=== PATIENT | male | born 1965 | race Caucasian/White ===

== ENCOUNTER 2023-01-28 16:35 | Outpatient (OUT) | payer BC, SELFPAY ==
[2023-01-28 17:25] LABS: Basophils Absolute Auto 0.1 10^3/uL (0.0-0.1); Basophils Percent Auto 0.8 % (0.2-2.0); Eosinophils Absolute Auto 0.2 10^3/uL (0.0-0.7); Eosinophils Percent Auto 1.4 % (0.9-7.0); Hematocrit 41.2 % (42.0-54.0); Hemoglobin 13.8 g/dL (14.0-18.0); Immature Granulocytes Abs Auto 0.15 10^3/uL (0.00-0.03); Immature Granulocytes Pct Auto 1.3 % (0.0-0.5); Lymphocytes Absolute Auto 2.5 10^3/uL (1.2-3.8); Lymphocytes Percent Auto 22.3 % (20.5-60.0); Mean Corpuscular HGB Conc 33.5 g/dL (29.9-35.2); Mean Corpuscular Hemoglobin 33.1 pg (25.9-34.0); Mean Corpuscular Volume 98.8 fL (80.0-94.0); Mean Platelet Volume 8.8 fL (9.5-13.5); Monocytes Absolute Auto 0.9 10^3/uL (0.3-0.8); Monocytes Percent Auto 7.6 % (1.7-12.0); Neutrophils Absolute Auto 7.5 10^3/uL (1.4-6.5); Neutrophils Percent Auto 66.6 % (43.0-75.0); Platelet Count 319 10^3/uL (150-450); Red Blood Count 4.17 10^6/uL (4.70-6.10); White Blood Count 11.3 10^3/uL (4.0-11.0)
[2023-01-28 17:34] LABS: Alanine Aminotransferase 25 U/L (16-63); Albumin Level 3.4 g/dL (3.4-5.0); Alkaline Phosphatase 66 U/L (46-116); Anion Gap 10.1; Aspartate Amino Transferase 11 U/L (15-37); Bilirubin Total 0.2 mg/dL (0.2-1.0); Calcium 8.9 mg/dL (8.5-10.1); Carbon Dioxide 29.7 mmol/L (21.0-32.0); Chloride 102 mmol/L (98-107); Estimated GFR (African America >60 (>=60); Estimated GFR (Non-African Ame >60 (>=60); Globulin 3.4 g/dL; Glucose 102 mg/dL (74-106); Potassium 3.8 mmol/L (3.5-5.1); Sodium 138 mmol/L (136-145); Total Protein 6.8 g/dL (6.4-8.2)
== END 2023-01-28 16:36 ==
PROVIDERS: PCP Nurse Practitioner; Visit Provider Internal Medicine Rheumatology
DX: M15.0 Primary generalized (osteo)arthritis (principal); Z79.899 Other long term (current) drug therapy; M79.0 Rheumatism, unspecified
CPT/HCPCS: 36415; 80053; 85025

== ENCOUNTER 2023-02-02 09:39 | Outpatient (OUT) | payer BC, SELFPAY ==
--- NOTE | 2023-02-02 09:47 | MR_ITS ---
[address] [address] Patient Name: LADONNA TIM MRN: [id number] date: 1965 Sex: M Assigned Patient Location: MRI Current Patient Location: MRI Accession/Order Number: [id number] Exam Date: 02/02/2023 10:10 Report Date: 02/02/2023 12:08 At the request of: ANNA SOSA Procedure: MR lumbar spine wo con EXAMINATION: MR lumbar spine wo con HISTORY: DEGENERATIVE DISC DISEASE M51.36 ; acute exacerbation of chronic lumbar and right leg pain COMPARISON: MRI L-spine 10/01/2021 TECHNIQUE: A variety of imaging planes and parameters were utilized for visualization of suspected pathology. FINDINGS: For the purposes of numbering, sagittal T2 image # 11 extends from the T11 vertebral body superiorly to the S2-3 level inferiorly. PARASPINAL AREA: 4.2 cm left renal cyst. BONES: Reversal normal lordotic curvature of lumbar spine and moderate left convex curvature. Grade 1 retrolisthesis of L2 on 3 and L3 on 4. Incidental large hemangioma within T11. CORD/CAUDA EQUINA: Normal caliber, contour, and signal intensity. DISC LEVELS: 12-L1: No significant disc/facet abnormality, spinal stenosis, or foraminal stenosis. L1-L2: Moderate-marked central canal and moderate bilateral foramen narrowing. Prominent posterior disc bulging and marked disc height reduction. No significant facet arthropathy. Fat within the central canal exacerbates central canal narrowing. L2-L3: Moderate marked central canal and mild bilateral foramen narrowing. Prominent diffuse disc bulging and marked disc height reduction. Central canal narrowing is exacerbated by fat within the central canal. L3-L4: Moderate marked central canal narrowing and moderate bilateral foramen narrowing. 4 mm retrolisthesis of L3 on 4 moderate diffuse disc bulging and marked disc height reduction. Central Canal fat exacerbates narrowing. Mild degenerative facet arthropathy bilaterally. L4-L5: Mild central canal narrowing. Mild-moderate right foramen and marked left foramen narrowing. Mild diffuse disc bulging without significant disc height reduction. Residual 6 mm extruded fragment posterior to L5 superior endplate; significantly smaller than previously seen Moderate degenerative facet arthropathy and ligamentum flavum thickening. L5-S1: No significant central canal narrowing. Moderate marked right, moderate left foramen narrowing. Mild diffuse disc bulging and moderate disc height reduction. Moderate degenerative facet arthropathy bilaterally. IMPRESSION: 1. Multilevel marked degenerative changes with central canal and foramen narrowing; not significantly changed. 2. Decrease in size of the L4-5 right paracentral disc extrusion. Electronically authenticated by: LISSETTE MCCAIN Date: 02/02/2023 12:08
== END 2023-02-02 09:40 ==
LOC: MRI 09:42
PROVIDERS: PCP Nurse Practitioner; Visit Provider Nurse Practitioner
DX: M51.36 Other intervertebral disc degeneration, lumbar region (principal)
CPT/HCPCS: 72148

== ENCOUNTER 2023-02-16 12:55 | Outpatient (OUT) | payer BC, SELFPAY ==
--- NOTE | 2023-02-16 10:30 | US_ITS ---
The [address] [address] Patient Name: LADONNA TIM MRN: [id number] date: 1965 Sex: M Assigned Patient Location: US Current Patient Location: US Accession/Order Number: [id number] Exam Date: 02/16/2023 10:36 Report Date: 02/16/2023 15:08 At the request of: ANNA SOSA Procedure: US renal BI EXAM: US renal BI HISTORY: RENAL CYST seen in recent MRI spine study. Follow-up study. COMPARISON: None. TECHNIQUE: Multiple sonographic images of the kidneys and bladder were obtained, supplemented with Doppler. FINDINGS: The right kidney measures 10.4 x 5.6 x 6.2 cm. The cortex measures 17 mm in thickness. No cystic or solid mass is identified. The Doppler study and vasculature are intact. There is no evidence of hydronephrosis. The left kidney measures 11.5 x 6.3 x 7.2 cm. The cortex measures 19 mm in thickness. In the mid aspect there is a minimally complex cyst measuring 3.6 x 3.7 x 3.5 cm. The Doppler study demonstrates no flow within. No other cystic or solid mass is identified. The Doppler study and vasculature are intact. There is no evidence of hydronephrosis. The urinary bladder is moderately well distended. The bladder isaacs are smooth without evidence of thickening. Bilateral ureteral jets are present. There is no evidence of a focal mass or abnormal calcification. The prevoid volume is 309 mL. The patient voided spontaneously with a post void volume of 48 mL, which is mildly abnormal. IMPRESSION: A slightly complex cyst is seen in the left kidney. No other cystic or solid mass is seen in either kidney, and there is no evidence of hydronephrosis. The urinary bladder appears unremarkable except for mild post void residual volume, which is slightly more than expected. Electronically authenticated by: SREEDHAR REHMAN Date: 02/16/2023 15:08
== END 2023-02-16 12:56 | disposition home or self-care (01) ==
PROVIDERS: PCP Nurse Practitioner; Visit Provider Nurse Practitioner
DX: N28.1 Cyst of kidney, acquired (principal)
CPT/HCPCS: 76775

== ENCOUNTER 2023-03-02 08:21 | Outpatient (OUT) | payer BC, SELFPAY ==
--- NOTE | 2023-03-02 08:27 | MR_ITS ---
The [place] [id number] Patient Name: LADONNA TIM MRN: [id number] date: 1965 Sex: M Assigned Patient Location: MRI Current Patient Location: MRI Accession/Order Number: [id number] Exam Date: 03/02/2023 08:45 Report Date: 03/03/2023 11:17 At the request of: ANNA SOSA Procedure: MR hip RT wo con EXAMINATION: MR hip RT wo con HISTORY: Right Hip Pain M25.551 ; low back and right hip pain COMPARISON: No relevant comparison available. TECHNIQUE: A comprehensive examination was performed utilizing a variety of imaging planes and imaging parameters to optimize visualization of suspected pathology. Images were performed without contrast. FINDINGS: FEMORAL HEAD: Normal. No AVN, fracture, or significant arthropathy. ACETABULUM: Normal. No fracture or significant arthropathy. OTHER BONES: Normal appearance of the visualized portion of the pelvis. LABRUM: Normal appearance for a patient in this age group, with no visible tear. EFFUSIONS: None. No synovitis or loose bodies. BURSAE: Normal. No evidence of iliopsoas or trochanteric bursitis. TENDONS: Normal. Normal gluteus tendons, iliopsoas tendon, and hamstring origin. MUSCLES: Normal. No tear or strain. No inappropriate atrophy. OTHER: Negative. MR/MR hip RT wo con IMPRESSION: 1. No appreciable abnormality of the right hip joint. Electronically authenticated by: LISSETTE MCCAIN Date: 03/03/2023 11:17
== END 2023-03-02 08:22 | disposition home or self-care (01) ==
LOC: MRI 08:22
PROVIDERS: PCP Nurse Practitioner; Visit Provider Nurse Practitioner
DX: M25.551 Pain in right hip (principal); M54.50 Low back pain, unspecified
CPT/HCPCS: 73721

== ENCOUNTER 2023-03-10 11:15 | Outpatient (OUT) | payer BC, SELFPAY ==
[2023-03-10 12:16] LABS: Prostate Specific Antigen Dx 0.65 ng/mL (<=4.00)
== END 2023-03-10 11:16 | disposition home or self-care (01) ==
LOC: LAB 11:15
PROVIDERS: PCP Nurse Practitioner; Visit Provider Urology
DX: N28.1 Cyst of kidney, acquired (principal); N40.1 Benign prostatic hyperplasia with lower urinary tract symptoms; N52.9 Male erectile dysfunction, unspecified
CPT/HCPCS: 36415; 84153

== ENCOUNTER 2023-03-11 07:33 | Outpatient (OUT) | payer BC, SELFPAY ==
--- NOTE | 2023-03-11 07:51 | CT_ITS ---
The [address] [address] Patient Name: LADONNA TIM MRN: [id number] date: 1965 Sex: M Assigned Patient Location: CT Current Patient Location: CT Accession/Order Number: [id number] Exam Date: 03/11/2023 08:50 Report Date: 03/11/2023 10:41 At the request of: MARLYS HERRING Procedure: CT abdomen pelvis w con EXAM: CT abdomen pelvis w con HISTORY: Kidney Cyst COMPARISON: CT abdomen and pelvis 05/30/2021. TECHNIQUE: Axial soft tissue windows of the abdomen and pelvis with coronal and sagittal reformats following intravenous administration of [address] dose reduction technique was used including Automated Exposure Control. FINDINGS: Abdomen: The liver, gallbladder, spleen, pancreas, and adrenal glands are unremarkable. Minimal nonspecific bilateral perinephric fat stranding. No renal stones or collecting system dilatation. Redemonstrated within the lower pole of the left kidney is a 4.0 cm fluid density lesion consistent with a cyst. The bilateral ureters are nondilated. There are colonic diverticula. There are postsurgical changes involving the sigmoid. Otherwise, the bowel is unremarkable without evidence of wall thickening or obstruction. The appendix is nondilated. The aorta is normal caliber with mild atherosclerotic disease. No enlarged abdominal lymph nodes or free abdominal fluid. Redemonstrated is a moderate sized fat-containing ventral hernia to the left of midline along the anterior margin of the rectus abdominous muscle. Pelvis: Unremarkable bladder. The prostate is not significantly enlarged. No enlarged pelvic lymph nodes or free pelvic fluid. No aggressive sclerotic or lytic osseous lesions. Mild retrolisthesis of L2 and L3. There are regions of severe multilevel degenerative disc disease with mild levoconvex scoliosis of the lumbar spine. CT/CT abdomen pelvis w con IMPRESSION: 1. Diverticulosis. 2. Left renal cyst. 3. Fat-containing ventral hernia. Electronically authenticated by: JONEL NG Date: 03/11/2023 10:41
== END 2023-03-11 07:34 | disposition home or self-care (01) ==
LOC: CT 07:33
PROVIDERS: PCP Nurse Practitioner; Visit Provider Urology
DX: N28.1 Cyst of kidney, acquired (principal); N40.1 Benign prostatic hyperplasia with lower urinary tract symptoms; N52.9 Male erectile dysfunction, unspecified; K57.90 Diverticulosis of intestine, part unspecified, without perforation or abscess without bleeding; K43.9 Ventral hernia without obstruction or gangrene
CPT/HCPCS: 74177; Q9967

== ENCOUNTER 2023-04-01 09:49 | Outpatient (OUT) | payer BC, SELFPAY ==
[2023-04-02 05:11] LABS: Testosterone 299 ng/dL (264-916)
== END 2023-04-01 09:50 | disposition home or self-care (01) ==
PROVIDERS: PCP Nurse Practitioner; Visit Provider Urology
DX: N52.9 Male erectile dysfunction, unspecified (principal)
CPT/HCPCS: 36415; 84403

== ENCOUNTER 2023-04-07 13:46 | Outpatient (OUT) | payer BC, SELFPAY ==
--- NOTE | 2023-04-07 14:28 | CA_ITS ---
Patient: LADONNA TIM Exam Date: 04/07/2023 : 1965 Gender:M Ordering : ADITHYA SOSA [facility] Admission #: [id number] Family : Order #: [id number] CLICK HERE TO VIEW EXAM ECHOCARDIOGRAM REPORT PROCEDURE: CA ECHO DOPPLER COMPLETE INDICATIONS: Tortuous aorta, hypertension COMPARISON: None. DESCRIPTION: COMPLETE ECHOCARDIOGRAM Real-time transthoracic echocardiography with 2D, M-mode, spectral and color flow Doppler performed. QUALITY: Technically difficult due to patient's condition. 70 315# BSA 2.53 m2 LEFT VENTRICLE: Normal chamber size. Normal left ventricular wall thickness. Normal systolic function. LV EF: Normal left ventricular ejection fraction, (>55%). DIASTOLIC: Normal diastolic function. ATRIAL SEPTUM: LEFT ATRIUM: Normal chamber size. RIGHT ATRIUM: Mild dilatation. RIGHT VENTRICLE: Normal chamber size. Normal right ventricular systolic function. TRICUSPID VALVE: Normal mobility and thickness. No stenosis with no regurgitation. Unable to assess right-sided pressures due to lack of measurable tricuspid regurgitation. MITRAL VALVE: Normal mobility and thickness. No evidence of mitral valve stenosis. There is no mitral annular calcification. No mitral regurgitation. AORTIC VALVE: Normal trileaflet appearance. No visible sclerosis. Normal leaflet mobility. No evidence of aortic valve stenosis. No aortic regurgitation. AORTIC ROOT: Mildly dilated aortic root (4.1 cm) and ascending aorta (4.1 cm) when corrected to body surface area. PULMONIC VALVE: Not well visualized. No stenosis. No regurgitation. PERICARDIUM: No evidence of pericardial effusion. IVC: Not well visualized. PLEURA: CONCLUSION: 1. Normal left ventricular systolic function. LVEF is 60%. 2. Normal right ventricular size and systolic function. 3. No significant valvular dysfunction. 4. Unable to assess right-sided pressures due to lack of measurable tricuspid regurgitation. 5. Mildly dilated aortic root [4.1 cm], and ascending aorta [4.1 cm]. Adult Echocardiography Procedure Report Left Ventricle LVEDD (3.7 - 5.6 cm): 5.38 cm LVESD (2.2 - 4.0 cm): 3.42 cm LVIVS thickness (0.6 - 1.2 cm): 0.88 cm LVPW thickness (0.5 - 1.0 cm): 1.15 cm e': 0.09 m/s E - e': 7.96 LVOT Max Gradient: 1.88 mm[Hg] LVOT Area (cm2): 0.69 m/s Peak Velocity (LVOT): 0.69 m/s LVOT Diameter 2.56 cm Left Atrium LA Volume Index (2D A2C): 29.83 ml/m2 Left Atrium Systolic Dimension: 4.17 cm Mitral Valve MV E to A Ratio: 0.79 Mitral Valve A-Wave Peak Velocity: 0.95 m/s Mitral Valve E-Wave Peak Velocity: 0.76 m/s Right Ventricle Aorta AO Root Diam: 4.11 cm Aortic Valve AoV Area (Peak Km): 3.21 cm2, 3.21 cm2 Peak Velocity(Antegrade Flow): 1.10 m/s Peak Gradient(Antegrade Flow): 4.85 mm[Hg] Tricuspid Valve Pulmonic Valve Peak Velocity: 0.96 m/s Peak Gradient: 4.49 mm[Hg], 2.90 mm[Hg] Right Atrium Right Atrium Systolic Pressure: 67.04 ml, 67.04 ml Dictated by: Abner Siddiqi M.D. on 04/07/2023 at 20:06 Approved by: Abner Siddiqi M.D. on 04/07/2023 at 20:11
== END 2023-04-07 13:47 | disposition home or self-care (01) ==
LOC: CARD 13:47
PROVIDERS: PCP Nurse Practitioner; Visit Provider Nurse Practitioner
DX: I77.1 Stricture of artery (principal); I10 Essential (primary) hypertension; G47.33 Obstructive sleep apnea (adult) (pediatric)
CPT/HCPCS: 93306

== ENCOUNTER 2023-11-30 09:36 | Outpatient (OUT) | payer BC, SELFPAY ==
[2023-11-30 10:01] LABS: Basophils Absolute Auto 0.1 10^3/uL (0.0-0.1); Basophils Percent Auto 1.3 % (0.2-2.0); Eosinophils Absolute Auto 0.2 10^3/uL (0.0-0.7); Eosinophils Percent Auto 1.9 % (0.9-7.0); Hematocrit 43.7 % (42.0-54.0); Hemoglobin 14.3 g/dL (14.0-18.0); Immature Granulocytes Abs Auto 0.06 10^3/uL (0.00-0.03); Immature Granulocytes Pct Auto 0.7 % (0.0-0.5); Lymphocytes Percent Auto 22.8 % (20.5-60.0); Mean Corpuscular HGB Conc 32.7 g/dL (29.9-35.2); Mean Corpuscular Hemoglobin 32.7 pg (25.9-34.0); Mean Platelet Volume 9.2 fL (9.5-13.5); Monocytes Absolute Auto 0.6 10^3/uL (0.3-0.8); Monocytes Percent Auto 7.2 % (1.7-12.0); Neutrophils Absolute Auto 5.8 10^3/uL (1.4-6.5); Neutrophils Percent Auto 66.1 % (43.0-75.0); Platelet Count 331 10^3/uL (150-450); Red Blood Count 4.37 10^6/uL (4.70-6.10); Red Cell Distribution Width 11.9 % (11.0-15.0); White Blood Count 8.8 10^3/uL (4.0-11.0)
[2023-11-30 10:15] LABS: Bilirubin Urine NEGATIVE (NEGATIVE); Blood Urine NEGATIVE (NEGATIVE); Clarity Urine CLEAR (CLEAR); Color Urine YELLOW (YELLOW); Glucose Urine UA NEGATIVE (NEGATIVE); Ketones Urine NEGATIVE (NEGATIVE); Leukocyte Esterase Urine NEGATIVE (NEGATIVE); Nitrite Urine NEGATIVE (NEGATIVE); Protein Urine NEGATIVE (NEG/TRACE); Specific Gravity Urine >=1.030 (1.005-1.025); Urobilinogen Urine 0.2 EU/dL (0.2-1.0)
[2023-11-30 10:22] LABS: Urine Microscopic Indicated NO
[2023-11-30 10:30] LABS: Creatinine Urine Random 169.01 mg/dL (20.00-300.00); Microalbum Creatinine Ratio Ur 7.6 mg/g (0.0-29.9); Microalbumin Urine Random <1.3 mg/dL (<=30.0)
[2023-11-30 10:39] LABS: Estimated Average Glucose 111 mg/dL; Glycohemoglobin A1C 5.5 % (4.5-6.2)
[2023-11-30 12:04] LABS: Alanine Aminotransferase 29 U/L (16-63); Albumin Level 3.4 g/dL (3.4-5.0); Alkaline Phosphatase 58 U/L (46-116); Anion Gap 13.2; Aspartate Amino Transferase 22 U/L (15-37); BUN Creatinine Ratio 23.6; Bilirubin Total 0.4 mg/dL (0.2-1.0); Calcium 8.8 mg/dL (8.5-10.1); Carbon Dioxide 27.9 mmol/L (21.0-32.0); Chloride 107 mmol/L (98-107); Chol HDL Ratio 4.5; Cholesterol 191 mg/dL (<=200); Estimated GFR (African America >60 (>=60); Estimated GFR (Non-African Ame >60 (>=60); Globulin 3.3 g/dL; Glucose 102 mg/dL (74-106); HDL Cholesterol 42 mg/dL (40-60); LDL Cholesterol Calculated 136.6 mg/dL; Potassium 4.1 mmol/L (3.5-5.1); Sodium 144 mmol/L (136-145); Total Protein 6.7 g/dL (6.4-8.2); Triglycerides 62 mg/dL (<=150); VLDL CHOLESTEROL 12.4 mg/dL
[2023-11-30 12:12] LABS: Prostate Specific Antigen Dx 1.48 ng/mL (<=4.00)
== END 2023-11-30 09:37 | disposition home or self-care (01) ==
LOC: LAB 09:39
PROVIDERS: PCP Nurse Practitioner; Visit Provider Nurse Practitioner
DX: E29.1 Testicular hypofunction (principal); I10 Essential (primary) hypertension; R73.03 Prediabetes; E78.00 Pure hypercholesterolemia, unspecified; Z12.5 Encounter for screening for malignant neoplasm of prostate
CPT/HCPCS: 36415; 80053; 80061; 81003; 82043; 82570; 83036; 84153; 84403; 85025

== ENCOUNTER 2023-11-30 09:42 | Outpatient (OUT) | payer BC, SELFPAY ==
[2023-12-01 03:07] LABS: Testosterone 327 ng/dL (264-916)
== END 2023-11-30 09:43 | disposition home or self-care (01) ==
LOC: LAB 09:43
PROVIDERS: PCP Nurse Practitioner; Visit Provider Urology
DX: E29.1 Testicular hypofunction (principal)
CPT/HCPCS: 36415; 84403

== ENCOUNTER 2024-03-08 12:22 | Outpatient (OUT) | payer BC, SELFPAY ==
--- NOTE | 2024-03-08 12:31 | XR_ITS ---
The [address] [address] Patient Name: LADONNA TIM MRN: [id number] date: 1965 Sex: M Assigned Patient Location: LAB Current Patient Location: Accession/Order Number: [id number] Exam Date: 03/08/2024 12:32 Report Date: 03/09/2024 04:45 At the request of: ANNA SOSA Procedure: XR hand SILVANO 2V EXAMINATION: XR hand SILVANO 2V HISTORY: bilateral hand pain COMPARISON: No relevant comparison available. FINDINGS: RIGHT FINDINGS: BONES: 2 lytic lesions within head of second metacarpal, and one within head of the third metacarpal. No significant joint space narrowing. Tiny periarticular osteophytes along the proximal articular margins of the first, second, third proximal phalanges. SOFT TISSUES: No visible soft tissue swelling. OTHER: Negative. LEFT FINDINGS: BONES: Tiny periarticular osteophytes along the proximal margins of the third proximal phalanx. SOFT TISSUES: No visible soft tissue swelling. OTHER: Negative. XR/XR hand SILVANO 2V IMPRESSION: RIGHT CONCLUSION: 1. Small erosive changes within head of second and third metacarpal which may be secondary to rheumatoid arthritis. Small periarticular osteophytes of the first, second, third metacarpal phalangeal joints are more typical of osteoarthritis. LEFT CONCLUSION: 1. Minimal arthritic changes favoring osteoarthritis. Electronically authenticated by: LISSETTE MCCAIN Date: 03/09/2024 04:45
[2024-03-08 13:00] LABS: Erythrocyte Sedimentation Rate 10 mm/hr (<=20)
[2024-03-08 13:31] LABS: Uric Acid 6.7 mg/dL (3.5-7.2)
== END 2024-03-08 12:23 | disposition home or self-care (01) ==
LOC: LAB 12:26
PROVIDERS: PCP Nurse Practitioner; Visit Provider Nurse Practitioner
DX: M79.641 Pain in right hand (principal); M79.642 Pain in left hand
CPT/HCPCS: 36415; 73120; 84550; 85652

== ENCOUNTER 2024-03-13 13:33 | Outpatient (OUT) | payer BC, SELFPAY ==
[2024-03-14 04:07] LABS: Antistreptolysin O Ab 54.3 IU/mL (0.0-200.0); Rheumatoid Factor (RF) <10.0 IU/mL (<14.0)
[2024-03-15 12:11] LABS: Antinuclear Antibodies, IFA Negative (.)
== END 2024-03-13 13:34 | disposition home or self-care (01) ==
LOC: LAB 13:36
PROVIDERS: PCP Nurse Practitioner; Visit Provider Nurse Practitioner
DX: M79.641 Pain in right hand (principal); M79.642 Pain in left hand
CPT/HCPCS: 36415; 86038; 86060; 86431

== ENCOUNTER 2024-03-20 13:27 | Outpatient (OUT) | payer BC, SELFPAY ==
--- NOTE | 2024-03-20 13:35 | XR_ITS ---
The [address] [address] Patient Name: LADONNA TIM MRN: [id number] date: 1965 Sex: M Assigned Patient Location: [facility] Current Patient Location: Accession/Order Number: [id number] Exam Date: 03/20/2024 13:38 Report Date: 03/22/2024 04:57 At the request of: NANA SOSA Procedure: XR cervical spine 2-3V EXAMINATION: XR cervical spine 2-3V HISTORY: Bilateral Hand Pain, Cervical Neck Radiculopathy COMPARISON: No relevant comparison available. FINDINGS: BONES: Straightening of normal lordotic curvature. C3-C4 moderate degenerative facet arthropathy on right. Multilevel mild degenerative facet arthropathy. DISC SPACES: Moderate narrowing and small posterior endplate osteophytes at C4-C5, C5-C6, C6-C7. PARASPINOUS: Negative. No paraspinous abnormality is seen. OTHER: Negative. XR/XR cervical spine 2-3V IMPRESSION: 1. Multilevel moderate or greater degenerative changes. 2. No appreciable acute abnormality. Electronically authenticated by: LISSETTE MCCAIN Date: 03/22/2024 04:57
== END 2024-03-20 13:28 | disposition home or self-care (01) ==
LOC: RAD 13:28
PROVIDERS: PCP Nurse Practitioner; Visit Provider Nurse Practitioner
DX: M79.641 Pain in right hand (principal); M79.642 Pain in left hand; M50.30 Other cervical disc degeneration, unspecified cervical region
CPT/HCPCS: 72040

== ENCOUNTER 2024-04-12 09:54 | Outpatient (OUT) | payer BC, SELFPAY ==
--- OUTSIDE RECORDS SUMMARY | 2024-04-12 10:14 | XMS_ITS | CCD ---
Author Organization [facility] Care Team Providers Care Boiler Tester Name Role Phone Es Love Primary Care Provider JOSHUA PEREZ Attending Unavailable ES LOVE Primary Care Unavailable Rom Faye Jr. Primary Care Provider Carrie Campos Unavailable AICHHOLZ, PRODUCTION FLOATER SHAVONNE Consulting Unavailable AICHHOLZ, PRODUCTION FLOATER SHAVONNE Primary Care Unavailable AICHHOLZ, PRODUCTION FLOATER SHAVONNE Admitting Unavailable AICHHOLZ, PRODUCTION FLOATER SHAVONNE Attending Unavailable AICHHOLZ, PRODUCTION FLOATER SHAVONNE Primary Care Unavailable MISC, DR MARIE Consulting Unavailable MISC, DR MARIE Admitting Unavailable MISC, DR MARIE Attending Unavailable AICHHOLZ, PRODUCTION FLOATER SHAVONNE Referring Unavailable AICHHOLZ, PRODUCTION FLOATER SHAVONNE Primary Care Unavailable MISC, DR MARIE Consulting Unavailable MISC, DR MARIE Admitting Unavailable MISC, DR MARIE Attending Unavailable AICHHOLZ, PRODUCTION FLOATER SHAVONNE Attending Unavailable AICHHOLZ, PRODUCTION FLOATER SHAVONNE Consulting Unavailable AICHHOLZ, PRODUCTION FLOATER SHAVONNE Primary Care Unavailable AICHHOLZ, PRODUCTION FLOATER SHAVONNE Admitting Unavailable DR LISSETTE MCCAIN Consulting Unavailable MISC, DR MARIE Attending Unavailable MISC, DR MARIE Consulting Unavailable MISC, DR MARIE Admitting Unavailable AICHHOLZ, PRODUCTION FLOATER SHAVONNE Primary Care Unavailable DANIELE MOLINA Consulting UnavailROMA Modi Admitting Unavailable ROMA CHAHAL Attending Unavailable AICHHOLZ, PRODUCTION FLOATER SHAVONNE Primary Care Unavailable AICHHOLZ, PRODUCTION FLOATER SHAVONNE Primary Care Unavailable DR LISSETTE MCCAIN Consulting Unavailable FAWWAD, FLORES H Admitting Unavailable FAWWAD, FLORES H Attending Unavailable FAWWAD, FLORES H Consulting Unavailable DR DARIN CHAPA V Consulting Unavailable AICHHOLZ, PRODUCTION FLOATER SHAVONNE Primary Care Unavailable AICHHOLZ, PRODUCTION FLOATER SHAVONNE Admitting Unavailable AICHHOLZ, PRODUCTION FLOATER SHAVONNE Attending Unavailable AICHHOLZ, PRODUCTION FLOATER SHAVONNE Consulting Unavailable AICHNICHOLAS PENGA J Primary Care Physician Rom Faye Jr. Primary Care Provider Rafael Esteban MD Unavailable Ickes PA-C, Barbie Bello Attending Unav ailable Aichholz CONCRETE CRAFTSMAN-PRODUCTION FLOATER, Shavonne Quesada Primary Care Unava ilable Aichholz CONCRETE CRAFTSMAN-PRODUCTION FLOATER, Shavonne Quesada Referring Unava ilable Aichholz CONCRETE CRAFTSMAN-PRODUCTION FLOATER, Shavonne Quesada Primary Care Unava ilable Ickes PA-C, Barbie Bello Attending Unav ailable Aichholz CONCRETE CRAFTSMAN-PRODUCTION FLOATER, Shavonne Quesada Primary Care Unava ilable Ickes PA-C, Barbie Bello Attending Unav ailable Aichholz CONCRETE CRAFTSMAN-PRODUCTION FLOATER, Shavonne Quesada Primary Care Unava ilable Aichholz CONCRETE CRAFTSMAN-PRODUCTION FLOATER, Shavonne Quesada Referring Unava ilable Claritza CONCRETE CRAFTSMAN-PRODUCTION FLOATER, Manuel Mcintosh Attending Unav ailable Aichholz CONCRETE CRAFTSMAN-PRODUCTION FLOATER, Shavonne Quesada Primary Care Unava ilable Claritza CONCRETE CRAFTSMAN-PRODUCTION FLOATER, Manuel Mcintosh Attending Unav ailable Parth Hdz MD Primary Care Provider [phone] Javier DOWNS Attending Unavailable Javier DOWNS Attending Unavailable Javier DOWNS Attending Unavailable AICHHOLSHAVONNE Isabel Referring Unavailable Javier DOWNS Attending Unavailable Javier DOWNS Attending Unavailable Wendi Watts Attending Unavailable AICHHOLZ, SHAVONNE Attending Unavailable SHAIKH LIANG Attending Unavailable AICHHOLZ, SHAVONNE Attending Unavailable Allergies Allergy Classification Reported Allergen(s) Allergy Type Date of Onset Reaction(s) Facility Opioid Agonists (2 sources) Meperidine Drug Allergy 06-10-20 14 Mental Status Change [facility] Penicillins (antibiotic) (1 source) Penicillins Drug Allergy 03-03-20 05 [facility] Work Phone: (7 sources) Meperidine; Translations: [meperidine] Drug Allergy 02-14-20 20 Hallucinations (finding) [place], [place] (13 sources) Morphine; Translations: [morphine] Drug Allergy 06-10-20 14 Hallucinations (finding), Mental Status Change [place], [place] (2 sources) Penicillins; Translations: [penicillins] Propensity to adverse reactions to drug 02-14-20 20 [place], [place] (7 sources) Penicillin; Translations: [penicillin] Drug Allergy Nausea and vomiting (disorder) [facility] (4 sources) Penicillin G Drug Allergy 08-24-19 24 GI intolerance [facility] Other (3 sources) Meperidine; Translations: [Demerol] Drug Allergy 05-17-20 15 [facility] (1 source) Morphine Drug Allergy 11-20-19 13 [facility] (1 source) Penicillins Drug allergy (disorder) 11-20-19 13 [facility] (1 source) Meperidine Drug Allergy 06-10-20 14 Mental Status Change [facility] (1 source) Penicillins Propensity to adverse reactions 03-03-20 05 [facility] Work Phone: (1 source) Morphine; Translations: [Morphine Sulfate] Drug Allergy [facility] Rep[facility] (1 source) opioid-like analgesics; Translations: [opioid-like analgesics] Propensity to adverse reactions to drug (disorder) [facility] (3 sources) Meperidine Drug Allergy 08-24-19 24 [facility] Medications Current Medications Medication Drug Class(es) Dates Sig (Normalized) Sig (Original) acetaminophen 325 mg / HYDROcodone bitartrate 5 mg oral tablet (5 sources) Opioid Agonist Start: 01-24-2023 End: 09-29-2023 take 1 tablet by mouth once HYDROcodone-acetami nophen ([place]) 5-325 MG tablet Take 1 tablet by mouth every 12 (twelve) hours if needed for moderate pain 0 01/24/2023 09/29/2023 Discontinued (Therapy completed) take 1 tablet by ashok th every six hours as needed HYDROcodone-Acetaminophen (NORCO) 10-325 mg per tablet Take 1 tablet by mouth every 6 hours as needed. 0 Active Comment on above: Take 1 tablet by ashok th every 6 hours as needed. amitriptyline hydrochloride 50 mg oral tablet (10 sources) Tricyclic Antidepressant Start: 03-07-2023 amitriptyline 50 mg Tab Refills(s) 0 Start Date: 03/07/23 Status: Ordered Amitriptyline HC l Active take 1 tablet by mouth once nafisa y amitriptyline (ELAVIL) 25 MG tablet Take 25 mg by mouth nightly 0 Active busPIRone hydrochloride 10 m g oral tablet (6 sources) Start: 12-05-2023 busPIRone 10 m g Tab Refills(s) 0 Start Date: 12/05/23 Status: Ordered Start: 08-18-2023 take 1 tablet by ashok th in the morning busPIRone (Buspar) 10 MG tablet Indications: SCOT (generalized anxiety disorder) (CMS/HCC) Take 1 tablet (10 mg) by mouth in the morning and 1 tablet (10 mg) before bedtime. 60 tablet 2 08/18/2023 Active cyclobenzaprine hydrochloride 10 mg oral tablet (10 sources) Muscle Relaxant Start: 03-07-2023 take 1 tablet by mouth three times daily as needed for muscle spasms cyclobenzaprine 10 mg Tab 10 mg = 1 tab(s), Oral, TID, PRN for spasm, # 30 tab(s), Refills(s) 0 Start Date: 03/07/23 Status: Ordered take 1 tablet by ashok th twice daily as needed for muscle spasms cyclobenzaprine (Flexeril) 10 MG tablet Take 1 tablet by mouth 2 (two) times a day as needed for muscle spasms 0 Active Cyclobenzaprine HCl at bedtime Active fluticasone propionate 0.05 mg/actuat metered dose nasal spray (9 sources) Corticosteroid Start: 09-28-2023 End: 10-28-2023 take 2 spray(s) nasal route in the morning fluticasone (Flonase) 50 MCG/ACT nasal spray Indications: Non-seasonal allergic rhinitis, unspecified trigger Administer 2 sprays into each nostril in the morning. 16 g 5 09/28/2023 10/28/2023 Active Start: 03-07-2023 fluticasone Na fortino 0.05 mg/inh [place] Refill(s) 0 Start Date: 03/07/23 Status: Ordered Fluticasone Prop ionate 50 MCG/ACT Nasal for 30 Days Active hydroCHLOROthiazide (2 sources) Thiazide Diuretic hydroCHLOROthi azide Active take 1 tablet by mouth once nafisa y hydroCHLOROthiazide (HYDRODIURIL) 25 MG tablet Take 25 mg by mouth daily 0 Active hydroCHLOROthiazide 12.5 mg / lisinopril 10 mg oral tablet (8 sources) Thiazide Diuretic, Angiotensin Converting Enzyme Inhibitor Start: 03-07-2023 hydrochlorothiazide-lisinopr il 12.5 mg-10 mg Tab Refill(s) 0 Start Date: 03/07/23 Status: Ordered lisinopril 10 mg oral tablet (1 source) Angiotensin Converting Enzyme Inhibitor take 1 tablet by mouth every twenty-f our hours Lisinopril 10 MG 1 tablet Orally Once a day Active 24 hr mirabegron 50 mg extended release oral tablet (3 sources) beta3-Adrener gic Agonist Start: 12-05-2023 take 1 tablet by mouth once daily Myrbetriq 50 mg oral tablet, extended release 50 mg = 1 tab(s), Oral, Daily, # 30 tab(s), Refills(s) 11, Pharmacy: [id number], 178, cm, 12/05/23 13:51:00 EDT, Height/Length Dosing, 143, kg, 12/05/23 13:51:00 EDT, Weight Dosing Start Date: 12/05/23 Status: Ordered montelukast 10 mg oral tablet (10 sources) Leukotriene Receptor Antagonist Start: 03-07-2023 montelukast 10 mg Tab Refills(s) 0 Start Date: 03/07/23 Status: Ordered Montelukast Sodi um Active nabumetone 750 mg oral tablet (9 sources) Nonsteroidal Anti-inflammatory Drug Start: 03-07-2023 nabumetone 750 mg Tab Refills(s) 0 Start Date: 03/07/23 Status: Ordered Nabumetone 750 M G Oral for 30 Days Active OTC Prostate Supplement (3 sources) Start: 12-05-2023 OTC Prostate Supplement OTC Prostate Supplement Start Date: 12/05/23 Status: Ordered predniSONE 20 mg oral tablet (1 source) Start: 01-03-2023 take 1 tablet by mouth every twelve hours predniSONE 20 MG 1 tablet Orally bid for 5 day(s) December, Active pregabalin 50 mg oral capsule (8 sources) Start: 08-02-2023 take 1 capsule by mouth in the morning pregabalin (Lyrica) 50 MG capsule Take 1 capsule by mouth in the morning and 1 capsule before bedtime. 0 08/02/2023 Active Start: 03-07-2023 pregabalin 25 mg Cap 50 mg = 2 cap(s), Refills(s) 0 Start Date: 03/07/23 Status: Ordered Start: 03-07-2023 pregabalin 25 mg Cap Refills(s) 0 Start Date: 03/07/23 Status: Ordered sildenafil 50 mg oral tablet (5 sources) Phosphodiesterase 5 Inhibitor Start: 10-31-2022 End: 09-29-2023 sildenafil (Viagra) 50 MG tablet Take 1 tablet by mouth if needed for erectile dysfunction (Prior to intercourse) 0 10/31/2022 09/29/2023 Discontinued (Therapy completed) tamsulosin hydrochloride 0.4 mg oral capsule (7 sources) alpha-Adrenergic Jameel Start: 08-03-2023 take 1 capsule by mouth every twenty-four hours in the morning tamsulosin (Flomax) 0.4 MG 24 hr capsule Take 1 capsule by mouth in the morning. 0 08/03/2023 Active Start: 03-28-2023 End: 03-22-2024 take 1 capsule by mouth once daily tamsulosin 0.4 mg Cap 0.4 mg = 1 cap(s), Oral, Daily, X 30 day(s), # 30 cap(s), Refills(s) 11, Pharmacy: [id number], 178, cm, 03/28/23 11:45:00 EDT, Height/Length Dosing, 143, kg, 03/28/23 11:45:00 EDT, Weight Dosing Start Date: 03/28/23 Stop Date: 03/22/24 Status: Ordered Completed/Discontinued Medications Medication Drug Class(es) Dates Sig (Normalized) Sig (Original) Albuterol (1 source) beta2-Adrenergic Agonist ProAir HFA Not-Taking CPAP (2 sources) CPAP USE WHEN SLEEPING FOR SLEEP APNEA 0 Active Comment on above: USE WHEN SLEEPING FO R SLEEP APNEA diazePAM 5 mg oral tablet (2 sources) Benzodiazepine diazepam (VALIUM) 5 mg tablet Take 5 mg by mouth as needed. 0 Active Comment on above: Take 5 mg by mouth a s needed. ibuprofen 800 mg oral tablet (2 sources) Nonsteroidal Anti-inflammatory Drug Ibuprofen 800 MG Orally Not-Taking methylPREDNISolone (1 source) Corticosteroid Start: 06-03-2014 Depo-Medrol 80 mg May, 80 mg tadalafil 10 mg oral tablet (1 source) Phosphodiesterase 5 Inhibitor Start: 02-21-2024 take 1 tablet by mouth every hour as needed, then take 2 tablets by mouth every twenty-four hours as needed tadalafil 10 mg Tab 10 mg = 1 tab(s), Oral, As Directed, PRN for erectile dysfunction, take 1 tab by mouth at least 1 hr prior to sexual activity, DO NOT exceed 20 mg in 24 hr period, # 30 tab(s), Refills(s) 3, Pharmacy: [id number], 178, cm, 02/21/24 9:33:00 EDT, Height/Length Dosing, 136.4, kg, 02/21/24 9:33:00 EDT, Weight Dosing Start Date: 02/21/24 Status: Ordered Toradol 30 mg/ml (1 source) Start: 01-03-2023 Toradol 30 mg/ml December, 30 mg triamcinolone acetonide 40 mg/ml injectable suspension (1 source) Corticosteroid Start: 01-03-2023 Kenalog-40 December, 40 mg Wrist Splint - (1 source) Start: 05-14-2020 Wrist Splint - as directed Apr, Not-Taking Problems Active Problems Problem Classification Problem Date Documented Da te Episodic/Chronic Abdominal hernia (3 sources) Hernia of anterior abdominal wall; Translations: [Ventral hernia without obstruction or gangrene] Onset: 09-28-2023 09-28-2023 Episodic Anxiety disorders (5 sources) Generalized anxiety disorder; Translations: [Generalized anxiety disorder] Onset: 08-18-2023 08-18-2023 Chronic Aortic; peripheral; and visceral artery aneurysms (8 sources) Aortic aneurysm; Translations: [Aortic aneurysm of unspecified site, without rupture] Onset: 09-28-2023 09-28-2023 Chronic Asthma (5 sources) Exacerbation of mild persistent asthma; Translations: [Mild persistent asthma with (acute) exacerbation] Onset: 09-28-2023 09-28-2023 Chronic Chronic obstructive pulmonary disease and bronchiectasis (2 sources) Acute exacerbation of chronic obstructive airways disease; Translations: [Chronic obstructive pulmonary disease with (acute) exacerbation] Chronic Diabetes mellitus without complication (5 sources) Prediabetes; Translations: [Prediabetes] Onset: 09-29-2023 09-29-2023 Episodic Disorders of lipid metabolism (5 sources) Hypercholesterolemi a; Translations: [Pure hypercholesterolemi a, unspecified] Onset: 09-28-2023 09-28-2023 Chronic Diverticulosis and diverticulitis (3 sources) Diverticulitis; Translations: [Diverticulitis of intestine, part unspecified, without perforation or abscess without bleeding] Onset: 09-29-2023 09-29-2023 Chronic Essential hypertension (14 sources) Essential (primary) hypertension; Translations: [Hypertensive disorder] Onset: 06-29-2022 Chronic Genitourinary symptoms and ill-defined conditions (6 sources) Urgent desire to urinate; Translations: [Urgency of urination] Onset: 12-05-2023 Episodic Hyperplasia of prostate (12 sources) Benign prostatic hypertrophy with outflow obstruction; Translations: [Benign prostatic hyperplasia with lower urinary tract symptoms] Onset: 03-07-2023 Chronic Infective arthritis and osteomyelitis (except that caused by tuberculosis or sexually transmitted disease) (2 sources) Periostitis of ankle AND/OR foot; Translations: [Osteomyelitis, unspecified] Onset: 06-10-2014 06-10-2014 Chronic Osteoarthritis (15 sources) Arthritis of right knee; Translations: [Unilateral primary osteoarthritis, right knee] Onset: 07-15-2014 07-15-2014 Chronic Other circulatory disease (3 sources) Disorder of aorta; Translations: [Stricture of artery] Onset: 09-28-2023 09-28-2023 Chronic Other connective tissue disease (3 sources) Full thickness rotator cuff tear; Translations: [Complete rotator cuff tear or rupture of unspecified shoulder, not specified as traumatic] Onset: 09-28-2023 09-28-2023 Episodic Other diseases of kidney and ureters (4 sources) Acquired renal cyst without neoplastic change; Translations: [Cyst of kidney, acquired] Onset: 03-07-2023 Episodic Other diseases of kidney and ureters (5 sources) Complex renal cyst 03-07-2023 Episodic Other diseases of kidney and ureters (6 sources) Cyst of kidney; Translations: [Cyst of kidney, acquired] Onset: 09-28-2023 09-28-2023 Episodic Other endocrine disorders (2 sources) Testicular hypofunction; Translations: [Testicular hypofunction] Onset: 03-28-2023 Chronic Other endocrine disorders (2 sources) Male hypogonadism 03-28-2023 Chronic Other lower respiratory disease (1 source) Dyspnea; Translations: [Dyspnea and respiratory abnormalities] Episodic Other lower respiratory disease (4 sources) Nodule of lung; Translations: [Solitary pulmonary nodule] Onset: 09-29-2023 09-29-2023 Episodic Other male genital disorders (14 sources) Male erectile dysfunction, unspecified; Translations: [Erectile dysfunction] Onset: 03-07-2023 Chronic Other male genital disorders (3 sources) Secondary erectile dysfunction; Translations: [Male erectile dysfunction, unspecified] Onset: 09-29-2023 09-29-2023 Chronic Other nervous system disorders (2 sources) Neuroma of foot; Translations: [Lesion of plantar nerve, right lower limb] Onset: 06-12-2014 06-12-2014 Chronic Other nervous system disorders (1 source) Chronic pain; Translations: [Other chronic pain] Chronic Other non-traumatic joint disorders (4 sources) Pain in right hip; Translations: [PAIN IN RIGHT HIP] Onset: 01-13-2023 Episodic Other nutritional; endocrine; and metabolic disorders (1 source) Morbid (severe) obesity due to excess calories; Translations: [MORBID SEVERE OBES D/T EXCESS PEDRO LUIS] Onset: 07-04-2022 Chronic Other nutritional; endocrine; and metabolic disorders (1 source) Body mass index (BMI) 40.0-44.9, adult; Translations: [BODY MASS INDEX BMI 40.0-44.9 ADULT] Onset: 07-04-2022 Chronic Other nutritional; endocrine; and metabolic disorders (5 sources) Body mass index 40+ - severely obese; Translations: [Morbid (severe) obesity due to excess calories] Onset: 09-28-2023 09-28-2023 Chronic Other nutritional; endocrine; and metabolic disorders (2 sources) Obesity caused by energy imbalance; Translations: [Morbid (severe) obesity due to excess calories] 09-29-2023 Chronic Other screening for suspected conditions (not mental disorders or infectious disease) (7 sources) Encounter for screening for malignant neoplasm of prostate; Translations: [Patient encounter status] Onset: 07-04-2022 09-29-2023 Episodic Other upper respiratory disease (3 sources) Allergic rhinitis; Translations: [Other allergic rhinitis] Onset: 09-28-2023 09-28-2023 Chronic Residual codes; unclassified (5 sources) Obstructive sleep apnea syndrome; Translations: [Obstructive sleep apnea (adult) (pediatric)] Onset: 09-28-2023 09-28-2023 Chronic Residual codes; unclassified (5 sources) Chronic back pain 03-07-2023 Episodic Residual codes; unclassified (5 sources) Sleep disorder 03-07-2023 Episodic Residual codes; unclassified (3 sources) Insomnia; Translations: [Insomnia, unspecified] Onset: 09-29-2023 09-29-2023 Episodic Spondylosis; intervertebral disc disorders; other back problems (3 sources) Lumbosacral spondylosis without myelopathy; Translations: [Spondylosis without myelopathy or radiculopathy, lumbosacral region] Onset: 05-01-2018 09-28-2023 Chronic Spondylosis; intervertebral disc disorders; other back problems (16 sources) Neurogenic claudication; Translations: [Spinal stenosis, lumbar region with neurogenic claudication] Onset: 06-12-2014 06-12-2014 Episodic Sprains and strains (1 source) Strain of muscle, fascia and tendon of lower back, initial encounter Episodic Unclassified (1 source) Patient encounter status 02-21-2024 Past or Other Problems Problem Classification Problem Date Documented Da te Episodic/Chronic Joint disorders and dislocations; trauma-related (2 sources) Tear of medial meniscus of knee; Translations: [Other tear of medial meniscus, current injury, unspecified knee, initial encounter] Onset: 07-15-2014 07-15-2014 Episodic Other aftercare (1 source) Other terminal block assembler (current) drug therapy; Translations: [[facility] CURRENT DRUG THERAPY] Onset: 09-08-2022 Episodic Other connective tissue disease (2 sources) Plantar fasciitis; Translations: [Plantar fascial fibromatosis] Onset: 06-10-2014 06-10-2014 Episodic Other connective tissue disease (2 sources) Calcaneal spur; Translations: [Calcaneal spur, unspecified foot] Onset: 06-10-2014 06-10-2014 Episodic Other connective tissue disease (1 source) Rheumatism, unspecified; Translations: [RHEUMATISM UNSPECIFIED] Onset: 09-08-2022 Episodic Other connective tissue disease (4 sources) Myalgia, unspecified site; Translations: [MYALGIA UNSPECIFIED SITE] Onset: 03-03-2022 Episodic Other injuries and conditions due to external causes (2 sources) Common peroneal neuropathy; Translations: [Injury of peroneal nerve at lower leg level, unspecified leg, initial encounter] Onset: 06-10-2014 06-10-2014 Episodic Other non-traumatic joint disorders (4 sources) Pain in right shoulder; Translations: [PAIN IN RIGHT SHOULDER] Onset: 07-28-2022 Episodic Other non-traumatic joint disorders (4 sources) Pain in left ankle and joints of left foot; Translations: [PAIN IN LEFT ANKLE] Onset: 07-05-2022 Episodic Results Test Name Value Interpretation Reference Range Facility Urology Office/Clinic Noteon 02-21-2024 Urology Office/Clinic Note Urology Office/Clinic Note Chief Complaint Discuss TRT HPI Staff PRW pt Here today to discuss possible TRT. (Has decided to not go through w/P4 inj) Additional DX: BPH, Urgency & Renal Cyst *Started on Myrbetriq 50mg at time of last encounter. & Tamsulosin 0.4mg qd therapy. Myrbetriq has helped, however would like something else due to cost. Stopped taking Tamsulosin-didn't see any sx relief. Main bladder concern is urgency. Would like to discuss moving forward w/testosterone injections (states oral replacement was not previously discussed) Has noticed fatigue to go along with ED. PVR 142ml History of Present Illness I have reviewed and verified the staff HPI to be accurate for this encounter. Portions of this record may have been created with voice recognition artificial intelligence software, specifically UUSEE, [employer] and or [employer]. Substitutions may have occurred due to the inherent limitations of voice recognition and artificial intelligence software. Review of Systems PHQ Score Initial Depression Screen Score: 0 SCORE Physical Exam Vitals & Measurements HR: 101(Peripheral) RR: 16 BP: 136/81 HT: 70 in HT: 178 cm WT: 136.4 kg WT: 300.08 lb BMI: 43.05 General: Well developed, well nourished, in no acute distress. Genitourinary: Flank Pain: none. Bladder: nonpalpable. Assessment/Plan 1. BPH associated with nocturia (N40.1: Benign prostatic hyperplasia with lower urinary tract symptoms) IPSS 18, moderate symptoms of BPH. Mixed feelings about his urinary symptoms at this time. Complains of frequency, urgency being his most bothersome symptoms, but he does also complain of weak stream, mild straining and intermittency. Patient was previously on tamsulosin 0.4 mg daily. However, he notes that this did not really improve his stream or his urgency. We discussed male urologic anatomy including the prostate and how this is likely contributing to his urinary symptoms. We discussed how potential prostate obstruction affects long-term bladder health and compliance. We discussed alpha-jameel medications to help with urinary symptoms, possible side effects, as well as bladder medication to help with frequency/urgency. I did advise patient that these medications do not protect the bladder while alleviating some urinary symptoms and that we may be covering up prostate being primary issue. In order to assess degree of bladder outlet obstruction and bladder health, discussed further evaluation with cystoscopy. The risks and benefits for cystoscopy have been discussed. The risks include bleeding, infection, and irritation of the bladder and urinary channel, among others. The patient, after being informed of procedural details and after questions have been answered, wishes to proceed. Will order Local anesthesia. -Schedule cystoscopy Ordered: 53875 Measure Post Void residual urine and/or bladder capacity by US- non-imaging Body Mass Index (BMI) documented 3008F Current tobacco non-user 1036F Depression Screening Negative 3352F Discharge medications reconciled with current medications in outpatient record 1111F Medication list documented in medical record 1159F Most recent diastolic blood pressure 80-89 mm Hg 3079F Patient screen for fall risk: no falls in last year or 1 fall with no injury in last year 1101F Review of all meds by a prescribing practitioner or clinical pharmacist documented in EHR 1160F Systolic BP 130-139 mm Hg (Most Recent) 3075F Urnls Dip Stick Auto w/o Microscopy POC [id number] 2. Urgency of urination (R39.15: Urgency of urination) This is the patient's most bothersome urinary symptom at this time. At prior office visit, he had recently started prostate supplement with saw palmetto which did not seem to improve his urgency some. Patient opted to start medication at prior office visit. He was started on Myrbetriq ER 50 mg daily, tolerating this well without side effects and is really helping with his urgency. He is paying about $65 a month for this, but he fears that his insurance will not continue to pay for this given that the initial cost is so much. He is inquiring about starting another medication in its place. PVR 142 cc Discussed with patient that I am hesitant to continue adding on bladder medications, as he does continue to complain of stream symptoms as well. I did discuss further evaluation of the urinary channel and bladder with cystoscopy, see #1. After assessment of urinary channel/bladder with cystoscopy, may consider switching bladder medications, although patient seems to be doing well on Myrbetriq. -Continue Myrbetriq -Schedule cystoscopy 3. Erectile dysfunction (N52.9: Male erectile dysfunction, unspecified) JEFFREY 15 -mild to moderate symptoms of erectile dysfunction Patient reports that he has issues getting and maintaining erections. Was previously on sildenafil 50 mg as needed by his PCP. He does report that this helped a lit (more content not included)... Normal [facility] Comment on above: Result Comment: Elec tronically Signed By: RENETTA Watts APRN, Wendi Acuna\.br\Date and Time Signed: 02/21/24 12:26 EDT Retail - Clinical Noteon Retail - Clinical Note [id number] [facility] Ambulatory Visit Summaryon 0 12-05-2023 Ambulatory Visit Summary MARCEL WAHL :1965 Visit Date:12/05/2023 Ambulatory Visit Instructions Your Diagnosis BPH associated with nocturia Urgency of urination Erectile dysfunction Renal cyst Your Care Team Attending Physician - NEVAEH HARKINS, Javier Jones Primary Care Physician - SHAVONNE CHOWDARY CNP This Is Your Medications List mirabegron (Myrbetriq 50 mg oral tablet, extended release) tamsulosin (tamsulosin 0.4 mg Cap) Contact prescribing physician if questions or concerns Non-Formulary Medication (OTC Prostate Supplement) amitriptyline (amitriptyline 50 mg Tab) busPIRone (busPIRone 10 mg Tab) cyclobenzaprine (cyclobenzaprine 10 mg Tab) fluticasone nasal (fluticasone Nasal 0.05 mg/inh [place]) hydrochlorothiazide-li sinopril (hydrochlorothiazide-l isinopril 12.5 mg-10 mg Tab) montelukast (montelukast 10 mg Tab) nabumetone (nabumetone 750 mg Tab) pregabalin (pregabalin 25 mg Cap) [Image Removed: STOP]Stop taking these medications sildenafil (sildenafil 50 mg Tab) Procedures Performed C-RFA (cooled radiofrequency ablation) of nerve using ultrasonography guidance, Hydrocelectomy, Knee, Large bowel resection, Shoulder. Discharge Vitals Heart Rate (Peripheral) 87 Respiratory Rate 16 Blood Pressure 131/84 Height 178 cm Height 70 in Weight 143 kg Weight 314.6 lb BMI 45.13 What to do next Scheduled Follow-Up Appointments Tuesday 11:30 AM EDT With: NEVAEH HARKINS, Javier Jones Where: [facility] Lab Reportson 12-05-2023 Lab Reports [id number] [facility] Patient Educationon 12-05-19 24 Patient Education Urology Erectile Dysfunction Erectile dysfunction (ED) is the inability to get or keep an erection in order to have sexual intercourse. ED is considered a symptom of an underlying disorder and is not considered a disease. ED may include: ? Inability to get an erection. ? Lack of enough hardness of the erection to allow penetration. ? Loss of erection before sex is finished. What are the causes? This condition may be caused by: ? Physical causes, such as: ? Artery problems. This may include heart disease, high blood pressure, atherosclerosis, and diabetes. ? Hormonal problems, such as low testosterone. ? Obesity. ? Nerve problems. This may include back or pelvic injuries, multiple sclerosis, Parkinson's disease, spinal cord injury, and stroke. ? Certain medicines, such as: ? Pain relievers. ? Antidepressants. ? Blood pressure medicines and water pills (diuretics). ? Cancer medicines. ? Antihistamines. ? Muscle relaxants. ? Lifestyle factors, such as: ? Use of drugs such as marijuana, cocaine, or opioids. ? Excessive use of alcohol. ? Smoking. ? Lack of physical activity or exercise. ? Psychological causes, such as: ? Anxiety or stress. ? Sadness or depression. ? Exhaustion. ? Fear about sexual performance. ? Guilt. What are the signs or symptoms? Symptoms of this condition include: ? Inability to get an erection. ? Lack of enough hardness of the erection to allow penetration. ? Loss of the erection before sex is finished. ? Sometimes having normal erections, but with frequent unsatisfactory episodes. ? Low sexual satisfaction in either partner due to erection problems. ? A curved penis occurring with erection. The curve may cause pain, or the penis may be too curved to allow for intercourse. ? Never having nighttime or morning erections. How is this diagnosed? This condition is often diagnosed by: ? Performing a physical exam to find other diseases or specific problems with the penis. ? Asking you detailed questions about the problem. ? Doing tests, such as: ? Blood tests to check for diabetes mellitus or high cholesterol, or to measure hormone levels. ? Other tests to check for underlying health conditions. ? An ultrasound exam to check for scarring. ? A test to check blood flow to the penis. ? Doing a sleep study at home to measure nighttime erections. How is this treated? This condition may be treated by: ? Medicines, such as: ? Medicine taken by mouth to help you achieve an erection (oral medicine). ? Hormone replacement therapy to replace low testosterone levels. ? Medicine that is injected into the penis. Your health care provider may instruct you how to give yourself these injections at home. ? Medicine that is delivered with a short applicator tube. The tube is inserted into the opening at the tip of the penis, which is the opening of the urethra. A tiny pellet of medicine is put in the urethra. The pellet dissolves and enhances erectile function. This is also called MUSE (medicated urethral system for erections) therapy. ? Vacuum pump. This is a pump with a ring on it. The pump and ring are placed on the penis and used to create pressure that helps the penis become erect. ? Penile implant surgery. In this procedure, you may receive: ? An inflatable implant. This consists of cylinders, a pump, and a reservoir. The cylinders can be inflated with a fluid that helps to create an erection, and they can be deflated after intercourse. ? A semi-rigid implant. This consists of two silicone rubber rods. The rods provide some rigidity. They are also flexible, so the penis can both curve downward in its normal position and become straight for sexual intercourse. ? Blood vessel surgery to improve blood flow to the penis. During this procedure, a blood vessel from a different part of the body is placed into the penis to allow blood to flow around (bypass) damaged or blocked blood vessels. ? Lifestyle changes, such as exercising more, losing weight, and quitting smoking. Follow these instructions at home: Medicines ? Take worn-ixi-iinnrck and prescription medicines only as told by your health care provider. Do not increase the dosage without first discussing it with your health care provider. ? If you are using self-injections, do injections as directed by your health care provider. Make sure you avoid any veins that are on the surface of the penis. After giving an injection, apply pressure to the injection site for 5 minutes. ? Talk to your health care provider about how to prevent headaches while taking ED medicines. These medicines may cause a sudden headache due to the increase in blood flow in your body. General instructions ? Exercise regularly, as directed by your health care provider. Work with your health care provider to lose weight, if needed. ? Do not use any products that contain nicotine or tobacco. These products include cig (more content not included)... Normal [facility] Urology Office/Clinic Noteon 12-05-2023 Urology Office/Clinic Note Chief Complaint 6m Testosterone HPI Staff 6 month f/u with testosterone level. Dx: complex renal cyst, BPH, nocturia, ED and hypogonadism male. *Tamsulosin 0.4mg qd and Sildenafil 50mg PRN Testosterone: 04/01/23- 299 11/30/23 is 327 Increased urgency the past 2-3m. Denies loss of bladder control. Voiding q2hrs during the day, waking up at least 2x/night to void. Denies complaints with urinary stream. Occasional post void dribbling. Still low libido. Has not noticed any improvement w/ Tamsulosin. Did start taking OTC Prostate supplement 2wks ago, has noticed improvement with urgency & frequency. History of Present Illness Tests reviewed: reviewed UA, T levels I have reviewed the previous health record information and history for this patient from Dr. Downs. I have reviewed and verified the staff HPI to be accurate for this encounter. Review of Systems PHQ Score Initial Depression Screen Score: 0 SCORE ROS - Provider Constitutional: denies weight loss, denies hot flashes. Eyes: denies eye problems. Gastrointestinal: denies nausea, denies vomiting. Cardiovascular: denies chest pain or angina. Integumentary: no dryness Musculoskeletal: denies musculoskeletal symptoms. ENMT: denies otolaryngeal symptoms. Respiratory: no shortness of breath. Heme/Lymph: denies easy bleeding tendency, denies easy bruising tendency. Psychiatric: no confusion, no anxiety. Genitourinary: See HPI. Physical Exam Vitals & Measurements HR: 87(Peripheral) RR: 16 BP: 131/84 HT: 70 in HT: 178 cm WT: 143 kg WT: 314.6 lb BMI: 45.13 General Appearance: alert, no distress, well nourished, well developed male. Genitourinary: normal scrotum, normal testes, normal urethra, normal epididymis, normal vas deferens/spermatic cord. Flank Pain: none. Bladder: nonpalpable. Assessment/Plan 1. BPH associated with nocturia (N40.1: Benign prostatic hyperplasia with lower urinary tract symptoms) PSA 03/10/23 - 0.65 Started on Tamsulosin 0.4mg qd at prior OV. Has not noticed improvement in sxs. Counseled pt on purpose of Tamsulosin is to improve stream vs urgency. Has a good, steady stream. Feels he empties completely most of the time. -Cont Tamsulosin 0.4mg qd 2. Urgency of urination (R39.15: Urgency of urination) Did start prostate supplement w/ lawrence maldonado recently. Has improved urgency some. Stream feels weak with urgency. Discussed possibility of trying a medication vs supplement for urgency. Pt is interested in this. -Start Myrbetriq ER 5omg qd. Discussed the medication side effects, and the patient will monitor closely for these, as well as for symptom improvement. If severe side effects occur, the medication should be stopped and the office notified. Also pt is to call if medication is cost prohibitive and will consider alternative med. 3. Erectile dysfunction (N52.9: Male erectile dysfunction, unspecified) Previously reported low libido. Now reports has good sex drive. Educated pt on difference between libido and ED. Pt states he has difficulty achieving and maintaining an erection. T levels 04/01/23 - 299 (drawn @ 10:04) 04/10/24 - 327 (drawn @ 09:54) Discussed levels are low normal. Taking Sildenafil 50mg PRN per PCP. Reports this increased his HR. Achieves 50% erection. Recommended pt to d/c medication given no sx improvement. Discussed pumps to help with erections. Not interested in this. Discussed alternative option of ICI. Counseled on risks/benefits. -D/c Sildenafil -F/u for ICI teaching once pt obtains rx -Consider TRT if pt becomes symptomatic for hypogonadism 4. Renal cyst (N28.1: Cyst of kidney, acquired) Renal US 02/16/23 - slightly complex cyst in left kidney measuring 3.6 x 3.[address] AP w con 03/11/23 [facility] 4.0cm fluid density lesion consistent with a cyst, negative for cancer. Per CT scan, cyst is not complex. Simple cysts do not require monitoring. Follow-up With When Contact Information NEVAEH HARKINS, Javier Jones, URL [facility] [address], [place] [phone]- [phone] Additional Instructions: f/u for ICI teaching Patient Education Erectile Dysfunction I, Shira Limon, personally scribed for Dr. Downs on 12/05/2023 15:03:37. . Documentation recorded by the scribe, Shira Limon, accurately reflects the services(s) I performed and decisions made by me. Authenticated by Dr. Downs on 12/05/2023 15:07:43. Problem List/Past Medical History Ongoing Aortic aneurysm BPH associated with nocturia Chronic back pain Complex renal cyst Erectile disorder Erectile dysfunction Hypertension Renal cyst Sleep disorder Urgency of urination Historical No qualifying data Procedure/Surgical History C-RFA (cooled radiofrequency ablation) of nerve using ultrasonography guidance, Hydrocelectomy, Knee, Large bowel resection, Shoulder. Medications amitriptyline 50 mg Tab busPIRone 10 mg T (more content not included)... Normal [facility] Comment on above: Result Comment: Elec tronically Signed By: Javier DOWNS MD\.br\Date and Time Signed: 12/05/23 15:07 EDT\.br\Electronically Co-Signed By: Shira Limon\Date and Time Co-Signed: 12/05/23 15:04 EDT .eGFRon 09-15-2023 GFR/1.73 sq M.predicted MDRD (S/P/Bld) [Vol rate/Area] mL/min/{1.73_m2} Normal >=60 [facility] Comment on above: Order Comment: Order added by Discern Rule. Result Comment: [facility] have implemented the eGFR calculation approach that does not have a coefficient for race and that conforms to the NKF-ASN Task Force Recommendations. Stages of Chronic Kidney Disease GFR Stage 3a Mild to moderate loss of kidney function 59 to 45 Stage 3b Moderate to severe loss of kidney function 44 to 33 Stage 4 Severe loss of kidney function 29 to 15 Stage 5 Kidney failure Less than 15 GFR calculated using the CKD-Epi Creatinine Equation (2020): eGFR = 142 X min(SCr/?, 1)? X max(SCr /?, 1)-1.200 X 0.9938Age X 1.012 [if female] Abbreviations/Units: eGFR (estimated glomerular filtration rate) = mL/min/1.73 m2 SCr (standardized serum creatinine) = mg/dL ? = 0.7 (females) or 0.9 (males) ? = -0.241 (females) or -0.302 (males) min = indicates the minimum of SCr/? or 1 max = indicates the maximum of SCr/? or 1 Age = years Performed By: #### E GFR #### [place] [address] CT Angio Chest Abd Pel w/ IV Conon 09-15-2023 CT Angio Chest Abd Pel w/ IV Con CLINICAL HISTORY: Thoracic aortic aneurysm. EXAMINATION: Contiguous axial images were obtained from the thoracic inlet through the symphysis pubis following intravenous administration of 100 mL of Omnipaque 350. This was supplemented with reformatted coronal and sagittal MIP images. Comparison is made to a previous abdominal CT dated 05/30/2021. FINDINGS: The lungs are clear. There is no pleural effusion or pneumothorax. There is mild subsegmental atelectasis. There is focal consolidation in the right lung base with adjacent linear opacity, likely scarring and unchanged from examination dated 03/11/2023. There is a 2 mm nodule in the right lung base. This is seen on series 4 image 67. There is no pleural effusion. There is no pneumothorax. A discrete mass is not seen. The imaged thyroid is unremarkable. The heart is not enlarged and there is no pericardial effusion. There are mild coronary artery calcifications. There are no pathologically enlarged mediastinal or hilar lymph nodes. There is no hiatal hernia. The liver is mildly diffusely hypoattenuating. This may represent fibrofatty infiltration. This cannot be further characterized and a contrast enhanced CT. The gallbladder, adrenals, pancreas and spleen are satisfactory in appearance. There is a simple appearing 4.2 cm left renal cyst. This is unchanged. The kidneys are otherwise unremarkable and excrete contrast equally. There is no abnormality of the urinary bladder. The prostate is satisfactory in appearance. There are diverticula in the sigmoid colon. There is no evidence of diverticulitis. There is mild retained stool in the colon. The large and small bowel are otherwise normal in contour and caliber. There are no pathologically enlarged mesenteric or retroperitoneal lymph nodes. There is no free air. There is no free fluid. There is a fat-containing ventral hernia to the left of midline slightly above the umbilicus. This is moderate in size with a large defect in the abdominal wall. There is a bone island in the left femoral head. There are degenerative changes throughout the spine with loss of disc space height, bone spurring and sclerosis. There is no suspicious osseous lesion or acute osseous abnormality. Vascular: The descending thoracic aorta measures 4.1 cm at the aortic root. It measures 4.5 cm at the level of the pulmonary trunk. It measures 3.8 cm just before the takeoff of the great vessels. There is classic configuration of the great vessels which are otherwise unremarkable. The descending thoracic aorta measures 2.5 cm in greatest dimension. There is no dissection. There is no aneurysm. The celiac trunk and its branches are widely patent. The SMA is patent. There is a replaced right hepatic artery arising from the SMA. There are left renal arteries with the more superior being diminutive. There are 3 right renal arteries. The third arises just before the aortic bifurcation. There is minimal calcification of the infrarenal abdominal aorta which is widely patent. The SARA is patent. There is tortuosity of the common iliac artery which are minimally calcified and remain patent. The internal and external iliac arteries are patent. IMPRESSION: 1. Minimal scattered vascular calcification without aneurysm, dissection or stenosis. 2. Question of fibrofatty infiltration of the liver. 3. Probable scarring in the right lung base stable from prior examinations. 4. 2 mm nodule in the right middle lobe. 5. Further nonacute findings as detailed above. Radiation Dose Estimate: CTDI(mGy):0.622338 / / / kVp:110.572727 / mAs:0.168357 / / / DLP(mGy-cm):4.806940Md dy Part: Abdomen CTDI(mGy):2.841985 / / / kVp:110.505626 / mAs:40.141378 / / / DLP(mGy-cm):2.609008Aj dy Part: Abdomen CTDI(mGy):19.358642 / / / kVp:110.392651 / mAs:40.353362 / / / DLP(mGy-cm):19.512002H tanya Part: Abdomen CTDI(mGy):9.604075 / / / kVp:110.850730 / mAs:161.870484 / / / DLP(mGy-cm):640.534532 Body Part: Abdomen Final Dictated by: Alonso Padgett MD Dictated DT/TM: 09.15.2023 12:28 pm Signed by: Alonso Padgett MD Signed (Electronic Signature): 09.15.2023 1:34 pm (If Report Is Signed, Electronically Signed in Other Vendor System) Normal [facility] POC Creatinine Von POC Crea iStat Venous 1.0 mg/dL Normal 0.6-1.3 [facility] Comment on above: Performed By: #### C D:[id number] #### [place] [address] Cardiovascular Surgery Offic e/ClinicNoteon 09-05-2023 Cardiovascular Surgery Office/ClinicNote Chief Complaint Aneurysm History of Present Illness Marcel is a 58-year-old gentleman with a history of chronic back issues. Recently had x-ray and imaging of his spine which showed tortuosity of the aorta. He has been referred to our office for this reason. He has had previous echocardiogram at the [facility] which did showed dilation of the ascending aorta and aortic root to 4.1 cm. He denies any known history of aneurysmal disease. He states his mom did have a brain aneurysm. His PMH is significant for morbid obesity, HTN, DDD, osteoarthritis, SALVATORE, previous tobacco abuse, diverticulitis. He denies any abdominal pain or discomfort. He states he did have a episode of mid chest discomfort last week which she attributed to acid reflux. He has not had any since. Denies any shortness of breath. I discussed with him the natural history of aneurysmal disease. I reviewed with him and his spouse the mitigating factors for aneurysmal growth, including good blood pressure control?ideally 120/70, healthy eating habits, smoking cessation, limiting stressors, as well as no heavy lifting?especially with Valsalva maneuver. We discussed obtaining more detailed imaging of the aorta by CT angiography. He is understanding of this testing and is willing to proceed accordingly. Review of Systems Constitutional: No fevers, chills, sweats, weakness Eye: No recent vision changes, double vision ENMT: No ear pain, nasal congestion, sore throat, voice changes Respiratory: No shortness of breath, cough, wheezing or sputum Cardiovascular: No Chest pain or tightness, palpitations, syncope, swelling Gastrointestinal: No nausea, vomiting, diarrhea, blood in stool, indigestion Genitourinary: No hematuria, frequency or urgency Long/Lymph: Negative for bruising tendency, swollen lymph glands Endocrine: Negative for excessive thirst, excessive hunger Musculoskeletal: + back pain, neck pain, joint pain, muscle pain, injury Integumentary: No rash, pruritus, abrasions, Neurologic: No headache, dizziness, fainting, seizures, balance problems Psychiatric: No anxiety, depression, suicidal thoughts Physical Exam Vitals & Measurements HR: 76 (Peripheral) BP: 154/72 SpO2: 96 HT: 178 cm WT: 143.78 kg WT: 143.78 kg (Dosing) BMI: 45.38 General: calm, cooperative, A/Ox4 Lungs: Clear to auscultation bilaterally Heart: Normal rate, regular rhythm, no murmur, gallop or edema Abdomen: Soft, non-tender, non-distended, normal bowel sounds, no masses. Morbid obesity Additional Vitals BP Position/Location: Sitting, Left arm Assessment/Plan Ascending aortic aneurysm Known tortuous aorta. Echocardiogram from March of last year ([facility]) shows 4.1 cm dilated aortic root and ascending aorta. Will obtain CT angiogram of the chest and abdomen reviewed with him and his spouse the mitigating factors for aneurysmal growth, including good blood pressure control?ideally 120/70, healthy eating habits, smoking cessation, limiting stressors, as well as no heavy lifting?especially with Valsalva maneuver. If the CTA does not show any significant change in the dilation of the aorta, plan will be for repeat CTa of the chest in 1 year All questions answered Ordered: CT Angio Chest Abd Pel w/ IV Con Medical Decision Making Chronic conditions NOT treated during this visit that affected my overall medical decision making: [] Treatment plans discussed but not opted for at this time: [] Prescribed medication that requires intensive monitoring for toxicity: [] I have reviewed the patient?s medication list for medication interactions/contraind ications and/or for upcoming procedures: [yes or no] Time Spent with the Patient I have personally spent [31] minutes on this date, directly related to today's patient visit, including pre and post visit work, for this date of service. Time listed does not include time spent on separately billable services. Problem List/Past Medical History Ongoing Anxiety Benign hypertension BPH associated with nocturia Degenerative disc disease Insomnia Low back pain Morbid obesity OA - Osteoarthritis of shoulder SALVATORE on CPAP Retrolisthesis Spinal stenosis of lumbar region Historical Asthma Continuous tobacco use Depression screening Diverticulitis Hypertension Muscle spasm of thoracic back Nausea Nocturia due to benign prostatic hypertrophy Pain in ankle Pain in right elbow Pain of right knee Right hip pain Shortness of breath Ventral hernia Procedure/Surgical History Right Shoulder Repair Comments: 2021; 2009 Hydrocele Right Meniscus Repair Bowel Resection Comments: 2009 Right foot reconstruction and tendon repair Comments: 2007 Medications amitriptyline 50 mg oral tablet cyclobenzaprine 10 mg oral tablet, 10 mg= 1 tabs, Oral, BID, PRN Flonase 50 mcg/inh nasal spray, 2 sprays, Nasal, Daily lisinopril-hydroCHLORO thiazide 10 mg-12.5 mg oral tablet, 1 tabs, Oral, Daily montelukast (more content not included)... [facility] [facility] MARCEL WHAL ([id number]) 1965 M Date Time Provider Department 04/21/23 RAFAEL BROWN During your visit today, we recorded the following information about you: Susan Simon 04/21/2023 3:40 PM Signed Left a VM. Need: explain the process and let patient know that I am in contact with his Dr's office trying to get all his records. Currently waiting for CT images. Susan Simon 05/04/2023 2:54 PM Signed Patient has been communicating via Dr. Shaikh Liang's office. Roselia nurse [phone] Diagnosis: aneurysm All records are in [facility] Oksana Spear RN 05/06/2023 1:57 PM Addendum I have called and discussed with Marcel Brown recommendations which are there is no indication for surgery. 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 Also, blood pressure control is essential to keep aorta size stable. He verbalized understanding Oksana Spear RN diagnosis: aorta 4.1 cm on echo history: obesity, chronic back pain, anxiety, asthma, HTN, SALVATORE, Referring Provider: SHAIKH LIANG [[id number]] Allergies As of Date: 04/21/2023 Noted Allergy Reaction DEMEROL (MEPERIDINE (PF)) 06/10/2014 1 - Mental Status Change MORPHINE 06/10/2014 1 - Mental Status Change PENICILLINS 03/03/2005 Date Reviewed: 09/30/2014 Reviewed by: Coco Steinberg RN - Fully Assessed Reason for Visit: Referral Information [[id number]] Prescriptions as of 05/06/2023 - HYDROcodone-Acetaminop hen (NORCO) 10-325 mg per tablet Take 1 tablet by mouth every 6 hours as needed. - CPAP USE WHEN SLEEPING FOR SLEEP APNEA - diazepam (VALIUM) 5 mg tablet Take 5 mg by mouth as needed. Problem List As Of Date 04/21/2023 Noted Resolved Plantar fasciitis [M72.2] 06/10/2014 Calcaneal spur [M77.30] 06/10/2014 Periostitis of ankle and foot (HCC) [M86.9] 06/10/2014 Common peroneal nerve dysfunction [S84.10XA] 06/10/2014 Neurogenic claudication due to lumbar spinal st*06/12/2014 Low back pain on right side with sciatica [M54.*06/12/2014 Plantar neuroma of right foot [G57.61] 06/12/2014 Medial meniscus tear [S83.249A] 07/15/2014 Arthritis of right knee [M17.11] 07/15/2014 Encounter Status:Closed by OKSANA SPEAR on 05/06/[address] [facility] Lab Reportson 04-07-2023 Lab Reports [id number] 0CD:127 Normal [facility] Patient Educationon 03-28-20 Patient Education Urology Erectile Dysfunction Erectile dysfunction (ED) is the inability to get or keep an erection in order to have sexual intercourse. ED is considered a symptom of an underlying disorder and is not considered a disease. ED may include: ? Inability to get an erection. ? Lack of enough hardness of the erection to allow penetration. ? Loss of erection before sex is finished. What are the causes? This condition may be caused by: ? Physical causes, such as: ? Artery problems. This may include heart disease, high blood pressure, atherosclerosis, and diabetes. ? Hormonal problems, such as low testosterone. ? Obesity. ? Nerve problems. This may include back or pelvic injuries, multiple sclerosis, Parkinson's disease, spinal cord injury, and stroke. ? Certain medicines, such as: ? Pain relievers. ? Antidepressants. ? Blood pressure medicines and water pills (diuretics). ? Cancer medicines. ? Antihistamines. ? Muscle relaxants. ? Lifestyle factors, such as: ? Use of drugs such as marijuana, cocaine, or opioids. ? Excessive use of alcohol. ? Smoking. ? Lack of physical activity or exercise. ? Psychological causes, such as: ? Anxiety or stress. ? Sadness or depression. ? Exhaustion. ? Fear about sexual performance. ? Guilt. What are the signs or symptoms? Symptoms of this condition include: ? Inability to get an erection. ? Lack of enough hardness of the erection to allow penetration. ? Loss of the erection before sex is finished. ? Sometimes having normal erections, but with frequent unsatisfactory episodes. ? Low sexual satisfaction in either partner due to erection problems. ? A curved penis occurring with erection. The curve may cause pain, or the penis may be too curved to allow for intercourse. ? Never having nighttime or morning erections. How is this diagnosed? This condition is often diagnosed by: ? Performing a physical exam to find other diseases or specific problems with the penis. ? Asking you detailed questions about the problem. ? Doing tests, such as: ? Blood tests to check for diabetes mellitus or high cholesterol, or to measure hormone levels. ? Other tests to check for underlying health conditions. ? An ultrasound exam to check for scarring. ? A test to check blood flow to the penis. ? Doing a sleep study at home to measure nighttime erections. How is this treated? This condition may be treated by: ? Medicines, such as: ? Medicine taken by mouth to help you achieve an erection (oral medicine). ? Hormone replacement therapy to replace low testosterone levels. ? Medicine that is injected into the penis. Your health care provider may instruct you how to give yourself these injections at home. ? Medicine that is delivered with a short applicator tube. The tube is inserted into the opening at the tip of the penis, which is the opening of the urethra. A tiny pellet of medicine is put in the urethra. The pellet dissolves and enhances erectile function. This is also called MUSE (medicated urethral system for erections) therapy. ? Vacuum pump. This is a pump with a ring on it. The pump and ring are placed on the penis and used to create pressure that helps the penis become erect. ? Penile implant surgery. In this procedure, you may receive: ? An inflatable implant. This consists of cylinders, a pump, and a reservoir. The cylinders can be inflated with a fluid that helps to create an erection, and they can be deflated after intercourse. ? A semi-rigid implant. This consists of two silicone rubber rods. The rods provide some rigidity. They are also flexible, so the penis can both curve downward in its normal position and become straight for sexual intercourse. ? Blood vessel surgery to improve blood flow to the penis. During this procedure, a blood vessel from a different part of the body is placed into the penis to allow blood to flow around (bypass) damaged or blocked blood vessels. ? Lifestyle changes, such as exercising more, losing weight, and quitting smoking. Follow these instructions at home: Medicines ? Take [id number] and prescription medicines only as told by your health care provider. Do not increase the dosage without first discussing it with your health care provider. ? If you are using self-injections, do injections as directed by your health care provider. Make sure you avoid any veins that are on the surface of the penis. After giving an injection, apply pressure to the injection site for 5 minutes. ? Talk to your health care provider about how to prevent headaches while taking ED medicines. These medicines may cause a sudden headache due to the increase in blood flow in your body. General instructions ? Exercise regularly, as directed by your health care provider. Work with your health care provider to lose weight, if needed. ? Do not use any products that contain nicotine or tobacco. These products include cig (more content not included)... [facility] Urology Office/Clinic Noteon 03-28-2023 Urology Office/Clinic Note Chief Complaint complex renal cyst HPI Staff F/u with PSA and CT. Previous dx of complex renal cyst, BPH with associated nocturia and ED. Current PSA done 03/10/23 is 0.65. Dysuria: no Incomplete bladder emptying: no Hematuria: no Frequency: every couple of hours Urgency: yes sometimes Nocturia: 2-3x Stream: no straining or intermittency Leaking: no Post void dripping: yes Wearing pads/ Depends: no Urge incontinence: no Stress incontinence: no Incontinence without Sensory Awareness: no Abdominal pain: no Flank pain: yes back pain pt states that he has a really bad back Sexual complaints: no History of Present Illness Tests reviewed: reviewed UA, PSA, CT scan I have reviewed the previous health record information and history for this patient from Dr. Downs. I have reviewed and verified the staff HPI to be accurate for this encounter. There have been no associated fever, chills, flank pain, or blood in the urine. Denies any urinary infections since last encounter. Review of Systems PHQ Score Initial Depression Screen Score: 0 ROS - Provider Constitutional: denies weight loss, denies hot flashes. Eyes: denies eye problems. Gastrointestinal: denies nausea, denies vomiting. Cardiovascular: denies chest pain or angina. Integumentary: no dryness Musculoskeletal: denies musculoskeletal symptoms. ENMT: denies otolaryngeal symptoms. Respiratory: no shortness of breath. Heme/Lymph: denies easy bleeding tendency, denies easy bruising tendency. Psychiatric: no confusion, no anxiety. Genitourinary: See HPI. Physical Exam Vitals & Measurements HR: 84(Peripheral) RR: 16 BP: 135/80 HT: 70 in HT: 178 cm WT: 143 kg WT: 314.6 lb BMI: 45.13 General Appearance: alert, no distress, well nourished, well developed male. Genitourinary: normal scrotum, normal testes, normal urethra, normal epididymis, normal vas deferens/spermatic cord. Flank Pain: none. Bladder: nonpalpable. Assessment/Plan 1. Complex renal cyst (N28.1: Cyst of kidney, acquired) Renal US 02/16/23 - slightly complex cyst in left kidney measuring 3.6 x 3.7 x 3.5 cm.[1] CT AP w/ con 03/11/23 at [facility] showed a redemonstrated LLP 4.0cm fluid density lesion consistent with a cyst, negative for cancer. Ordered: E&M of Est. Patient Moderate 30-39 Min 78316 Urnls Dip Stick Auto w/o Microscopy POC 88221 2. BPH associated with nocturia (N40.1: Benign prostatic hyperplasia with lower urinary tract symptoms) Admits he does not always feel he empties completely and has some hesitancy. Pt to begin taking Tamsulosin 0.4mg QD. Discussed the medication side effects, and the patient will monitor closely for these, as well as for symptom improvement. If severe side effects occur, the medication should be stopped and the office notified. Most recent PSA 03/10/23 is 0.65. Denies family hx of prostate ca. . Ordered: E&M of Est. Patient Moderate 30-39 Min 79994 3. Erectile dysfunction (N52.9: Male erectile dysfunction, unspecified) Pt is currently taking Sildenafil 50mg PRN per PCP. [2] Pt admits he has a low sex drive. Will order AM testosterone level. Will reevaluate depending on results. Ordered: E&M of Est. Patient Moderate 30-39 Min 99619 Testosterone Level Total 4. Hypogonadism male (E29.1: Testicular hypofunction) states he has no drive or interest. he is concerned. Follow up in 6 months with T level. All questions/concerns were discussed. Pt to call the office if he encounters any issues prior. Pt acknowledges understanding Orders: tamsulosin, 0.4 mg = 1 cap(s), Oral, Daily, X 30 day(s), # 30 cap(s), Refills(s) 11, Pharmacy: [id number], 178, cm, 03/28/23 11:45:00 EDT, Height/Length Dosing, 143, kg, 03/28/23 11:45:00 EDT, Weight Dosing Follow-up With When Contact Information NEVAEH HARKINS, Javier Jones, URL In 6 months [facility] [address], [place] [phone] Additional Instructions: T level Patient Education Erectile Dysfunction IShira, personally scribed for Dr. Downs on 03/28/2023 12:17:05. . Documentation recorded by the scribShira cuellar, accurately reflects the services(s) I performed and decisions made by me. Authenticated by Dr. Downs on 03/28/2023 12:20:16. Documentation recorded by the Shira mancuso, accurately reflects the services(s) I performed and decisions made by me. Authenticated by Dr. Downs on 03/28/2023 12:23:54. Problem List/Past Medical History Ongoing BPH associated with nocturia Chronic back pain Complex renal cyst Erectile disorder Erectile dysfunction Hypertension Sleep disorder Historical No qualifying data Procedure/Surgical History C-RFA (cooled radiofrequency ablation) of nerve using ultrasonography guidance, Hydrocelectomy, Knee, Large bowel resection, Shoulder. Medications amitriptyline 50 mg Tab cyclobenzaprine 10 mg Tab, 10 mg= 1 tab(s), Oral, TI (more content not included)... [facility] Comment on above: Result Comment: Elec tronically Signed By: NEVAEH HARKINS, Javier Jones\.br\Date and Time Signed: 03/28/23 12:23 EDT\.br\Electronically Co-Signed By: Shira Limon\.br\Date and Time Co-Signed: 03/28/23 12:17 EDT RAD - CT Reporton 03-20-2023 RAD - CT Report [id number] 0CD:127 Normal [facility] XR Scoliosis Study 2 or 3 Vi ewson 03-18-2023 XR Scoliosis Study 2 or 3 Views CLINICAL HISTORY: Back pain. EXAMINATION: Frontal and lateral images of the entire spine were obtained. FINDINGS: There are 12 rib bearing, thoracic type vertebral bodies. There are 5 nonrib-bearing, lumbar-type vertebral bodies. There is no hemivertebra or vertebral anomaly. There is loss of disc space height with endplate bone spurring throughout the spine, greater in the lumbar levels. There is reversal of the normal cervical lordosis. There is minimal anterolisthesis of C2 with respect to C3. There is no suspicious osseous lesion. Evaluation is limited by body habitus and degenerative change. There is approximately 14 degrees of dextro scoliosis of the thoracic spine as measured from the superior endplate of T6 to the superior endplate of L1. There is approximately 21 degrees of levoscoliosis of the lumbar spine is measured from the superior endplate of L5 and superior endplate of L2. There is approximately 6 degrees of pelvic tilt to the left. There is mild tortuosity of the aorta. The heart is normal in size. There is subsegmental atelectasis in the left lung base. There is a nonobstructive bowel gas pattern. There is no organomegaly, discrete soft tissue mass or pathologic calcification. IMPRESSION: S-shaped scoliosis of the thoracolumbar spine as detailed above. Final Dictated by: Alonso Padgett MD Dictated DT/TM: 03/18/2023 8:59 am Signed by: Alonso Padgett MD Signed (Electronic Signature): 03/18/2023 9:01 am (If Report Is Signed, Electronically Signed in Other Vendor System) Normal [facility] XR Spine Lumbosacral Bending 2-3 Viewson 03-18-2023 XR Spine Lumbosacral Bending 2-3 Views EXAMINATION: XR Spine Lumbosacral Bending 2-3 Views, , 03/17/2023 2:11 PM EDT INDICATION: Pain, lumbar HISTORY: Ordering Provider Reason for Exam: Technologist Note: Additional: COMPARISON: None. TECHNIQUE: Lumbar spine x-ray: 3 view(s). FINDINGS: BONES/DISCS: Vertebral bodies are normal in height. There is disc space narrowing at L1-L2, L2-L3, and L3-L4 with vacuum disc phenomenon, endplate sclerosis, and anterior osteophytosis. More moderate disc space narrowing at L4-L5 and L5-S1. There is facet arthropathy at L4-L5 and L5-S1. A degenerative retrolisthesis of L2 upon L3 is demonstrated, posterior offset measuring approximately 6 mm. Mild posterior offset of L3 upon L4 is demonstrated, measuring approximately 4 mm. Comparison of flexion and extension views shows mild accentuation of the posterior offset of L3 relative to L4 on extension study. PARASPINOUS: Negative. No paraspinous abnormality. OTHER: Negative. IMPRESSION: Multilevel lumbar spondylosis. Final Dictated by: Jessica Martínez MD Dictated DT/TM: 03/17/2023 10:54 pm Signed by: Jessica Martínez MD Signed (Electronic Signature): 03/17/2023 10:57 pm (If Report Is Signed, Electronically Signed in Other Vendor System) Normal [facility] Provider Letteron 03-17-2023 Provider Letter Shavonne Chowdary, CONCRETE [employer]SM[employer] [address] [place] [address] Re: Marcel Wahl Date of Visit: 03/17/2023 Dear Shavnone Chowdary, Thank you for allowing me to contribute to the care of your patient, Marcel Wahl. Attached is my office note and you will find my assessment and recommendations from our encounter today. Please do not hesitate to contact me with any questions or concerns. Sincerely, Barbie Almaraz PA-C [facility] [address] [address] The following document(s) were included in the letter: March 17, 2023 12:49:22 EDT - (03/17/2023) Neurosurgery Office Visit Note Normal [facility] Lab Reportson 03-14-2023 Lab Reports [id number] 0CD:127 [facility] RAD - CT Reporton 03-14-2023 RAD - CT Report [id number] 0CD:127 [facility] Physician Referralon 023 Physician Referral [id number]:127 [facility] Screenson 03-08-2023 Screens [id number] 0CD:127 [facility] Ambulatory Visit Summaryon 0 03-07-2023 Ambulatory Visit Summary GLENROYMARCEL HERNANDEZ :1965 Visit Date:03/07/2023 Ambulatory Visit Instructions Your Diagnosis Complex renal cyst BPH associated with nocturia Erectile dysfunction Tests Performed Urnls Dip Stick Auto w/o Microscopy POC 73381 Your Care Team Attending Physician - Javier DOWNS MD Primary Care Physician - SHAVONNE CHOWDARY CNP Referring Physician - SHAVONNE CHOWDARY CNP This Is Your Medications List Contact prescribing physician if questions or concerns amitriptyline (amitriptyline 50 mg Tab) cyclobenzaprine (cyclobenzaprine 10 mg Tab) fluticasone nasal (fluticasone Nasal 0.05 mg/inh [place]) hydrochlorothiazide-li sinopril (hydrochlorothiazide-l isinopril 12.5 mg-10 mg Tab) montelukast (montelukast 10 mg Tab) nabumetone (nabumetone 750 mg Tab) pregabalin (pregabalin 25 mg Cap) sildenafil (sildenafil 50 mg Tab) Procedures Performed Hydrocelectomy, Knee, Large bowel resection, Shoulder. Discharge Vitals Height 178 cm Height 70 in Weight 143 kg Weight 314.6 lb BMI 45.13 What to do next You Need to Schedule the Following Appointments Follow Up with NEVAEH HARKINS, Javier R, URL When: Where: [facility] [address], [place] [address] [phone] Medications What How Much When Instructions Unchanged amitriptyline (amitriptyline 50 mg Tab) Contact prescribing physician if questions or concerns Unchanged cyclobenzaprine (cyclobenzaprine 10 mg Tab) 1 Tablets By Mouth 3 times a day as needed for for spasm Contact prescribing physician if questions or concerns Unchanged fluticasone nasal (fluticasone Nasal 0.05 mg/ inh [place]) Contact prescribing physician if questions or concerns Unchanged hydrochlorothiazide-li sinopril (hydrochlorothiazide-l isinopril 12.5 mg-10 mg Tab) Contact prescribing physician if questions or concerns Unchanged montelukast (montelukast 10 mg Tab) Contact prescribing physician if questions or concerns Unchanged nabumetone (nabumetone 750 mg Tab) Contact prescribing physician if questions or concerns Unchanged pregabalin (pregabalin 25 mg Cap) Contact prescribing physician if questions or concerns Unchanged sildenafil (sildenafil 50 mg Tab) Contact prescribing physician if questions or concerns Test Results Urnls Dip Stick Auto w/o Microscopy POC 95137 (03/07/2023) Bilirubin Urine Dipstick - Negative Blood Urine Dipstick - Negative Glucose Urine Dipstick - Negative Ketones Urine Dipstick - Negative Leukocytes Urine Dipstick - Negative Nitrite Urine Dipstick - Negative Protein Urine Dipstick - Negative Specific [place] Urine Dipstick - 1.010 Urine Appearance Urine Dipstick - Clear Urine Color Urine Dipstick - Yellow Urobilinogen Urine Dipstick - Normal 0.2-1 EU/dl pH Urine Dipstick - 6 Allergies Demerol (Hallucinations) morphine (Hallucinations) penicillin (Nausea and vomiting) Problems Ongoing - Any problem that you are currently receiving treatment for. BPH associated with nocturia Chronic back pain Complex renal cyst Erectile disorder Erectile dysfunction Hypertension Sleep disorder [employer] Renal Mass A renal mass is an abnormal growth in the kidney. It may be found while performing an MRI, CT scan, or ultrasound to evaluate other problems of the abdomen. A renal mass that is cancerous (malignant) may grow or spread quickly. Others are not cancerous (benign). Renal masses include: ? Tumors. These may be malignant or benign. ? The most common type of kidney cancer in adults is renal cell carcinoma. In children, the most common type of kidney cancer is Wilms tumor. ? The most common benign tumors of the kidney include renal adenomas, oncocytomas, and angiomyolipoma (AML). ? Cysts. These are fluid-filled sacs that form on or in the kidney. What are the causes? Certain types of cancers, infections, or injuries can cause a renal mass. It is not always known what causes a cyst to develop in or on the kidney. What are the signs or symptoms? Often, a renal mass does not cause any signs or symptoms; most kidney cysts do not cause symptoms. How is this diagnosed? Your health care provider may recommend tests to diagnose the cause of your renal mass. These tests may be done if a renal mass is found: ? Physical exam. ? Blood tests. ? Urine tests. ? Imaging tests, such as ultrasound, CT scan, or MRI. ? Biopsy. This is a small sample that is removed from the renal mass and tested in a lab. The exact tests and how often they are done will depend on: ? The size and appearance of the renal mass. ? Risk factors or medical conditions that increase your risk for problems. ? Any symptoms associated with the renal mass, or concerns that you have about it. Tests and physical exams may be done once, or they may be done regularly for a period of time. Tests and exams that are done regularly will help monitor wheth (more content not included)... [facility] Patient Educationon 03-07-20 23 Patient Education Urology Renal Mass A renal mass is an abnormal growth in the kidney. It may be found while performing an MRI, CT scan, or ultrasound to evaluate other problems of the abdomen. A renal mass that is cancerous (malignant) may grow or spread quickly. Others are not cancerous (benign). Renal masses include: ? Tumors. These may be malignant or benign. ? The most common type of kidney cancer in adults is renal cell carcinoma. In children, the most common type of kidney cancer is Wilms tumor. ? The most common benign tumors of the kidney include renal adenomas, oncocytomas, and angiomyolipoma (AML). ? Cysts. These are fluid-filled sacs that form on or in the kidney. What are the causes? Certain types of cancers, infections, or injuries can cause a renal mass. It is not always known what causes a cyst to develop in or on the kidney. What are the signs or symptoms? Often, a renal mass does not cause any signs or symptoms; most kidney cysts do not cause symptoms. How is this diagnosed? Your health care provider may recommend tests to diagnose the cause of your renal mass. These tests may be done if a renal mass is found: ? Physical exam. ? Blood tests. ? Urine tests. ? Imaging tests, such as ultrasound, CT scan, or MRI. ? Biopsy. This is a small sample that is removed from the renal mass and tested in a lab. The exact tests and how often they are done will depend on: ? The size and appearance of the renal mass. ? Risk factors or medical conditions that increase your risk for problems. ? Any symptoms associated with the renal mass, or concerns that you have about it. Tests and physical exams may be done once, or they may be done regularly for a period of time. Tests and exams that are done regularly will help monitor whether the mass is growing and beginning to cause problems. How is this treated? Treatment is not always needed for this condition. Your health care provider may recommend careful monitoring and regular tests and exams. Treatment will depend on the cause of the mass. Treatment for a cancerous renal mass may include surgical removal, chemotherapy, radiation, or immunotherapy. Most kidney cysts do not need to be treated. Follow these instructions at home: What you need to do at home will depend on the cause of the mass. Follow the instructions that your health care provider gives to you. In general: ? Take gfqg-lab-ydcqfds and prescription medicines only as told by your health care provider. ? If you were prescribed an antibiotic medicine, take it as told by your health care provider. Do not stop taking the antibiotic even if you start to feel better. ? Follow any restrictions that are given to you by your health care provider. ? Keep all follow-up visits. This is important. ? You may need to see your health care provider once or twice a year to have CT scans and ultrasounds. These tests will show if your renal mass has changed or grown. Contact a health care provider if you: ? Have pain in your side or back (flank pain). ? Have a fever. ? Feel full soon after eating. ? Have pain or swelling in the abdomen. ? Lose weight. Get help right away if: ? Your pain gets worse. ? There is blood in your urine. ? You cannot urinate. ? You have chest pain. ? You have trouble breathing. These symptoms may represent a serious problem that is an emergency. Do not wait to see if the symptoms will go away. Get medical help right away. Call your local emergency services (911 in the [place] Summary ? A renal mass is an abnormal growth in the kidney. It may be cancerous (malignant) and grow or spread quickly, or it may not be cancerous (benign). Renal masses often do not have any signs or symptoms. ? Renal masses may be found while performing an MRI, CT scan, or ultrasound for other problems of the abdomen. ? Your health care provider may recommend that you have tests to diagnose the cause of your renal mass. These may include a physical exam, blood tests, urine tests, imaging, or a biopsy. ? Treatment is not always needed for this condition. Careful monitoring may be recommended. This information is not intended to replace advice given to you by your health care provider. Make sure you discuss any questions you have with your health care provider. Document Revised: 02/02/2021 Document Reviewed: 02/02/2021 [employer] Patient Education ? 2022 [employer] Normal [facility] CBC AUTO DIFFon 09-01-2022 BASO # 0.1 103/ul Normal 0.0-0.1 [facility] Comment on above: Performed By: #### C BC ####[facility] [address] [place] [address]Dr. Gema Beck Basophils/100 WBC (Bld) 0.8 % Normal 0.2-2.0 [facility] Comment on above: Performed By: #### C BC ####[facility] [address] [place] [address]Dr. Gema Beck EO # 0.2 103/ul Normal 0.0-0.7 [facility] Comment on above: Performed By: #### C BC ####[facility] [address] [place] [address]Dr. Gema Beck Eosinophils/100 WBC (Bld) 1.6 % Normal 0.9-7.0 [facility] Comment on above: Performed By: #### C BC ####[facility] [address] [place] [address]Dr. Gema Beck Erythrocyte distribution width (RBC) [Ratio] 11.8 % Normal 11.0-15.0 [facility] Comment on above: Performed By: #### C BC ####[facility] [address] [place] [address]Dr. Gema Beck Hematocrit (Bld) [Volume fraction] 43.3 % Normal 42.0-54.0 [facility] Comment on above: Performed By: #### C BC ####[facility] [address] [place] [address]Dr. Gema Beck Hemoglobin (Bld) [Mass/Vol] 14.2 g/dL Normal 14.0-18.0 [facility] Comment on above: Performed By: #### C BC ####[facility] [address] [place], [place] [address]Dr. Gema Beck IG # 0.07 10e3/ul Critically high 0.00-0.03 [facility] Comment on above: Performed By: #### C BC ####[facility] [address] [place], [place] [address]Dr. Gema Beck IG % 0.7 % Critically high 0.0-0.[address] [facility] Comment on above: Performed By: #### C BC ####[facility] [address] [place], [place] [address]Dr. Gema Beck LYMPH # 2.6 103/ul Normal 1.2-3.8 [facility] Comment on above: Performed By: #### C BC ####[facility] S[address]mufxt[address] [place], [place] [address]Dr. Gema Beck Lymphocytes/100 WBC (Bld) 27.0 % Normal 20.5-60.0 [facility] Comment on above: Performed By: #### C BC ####[facility] [address]athokq[address] [place], [place] [address]Dr. Gema Beck MANUAL DIFF REQ NO Normal The [facility] Comment on above: Performed By: #### C BC ####[facility] [address]qwrdvff[address] [place], [place] [address]Dr. Gema Kiran MCH (RBC) [Entitic mass] 32.1 pg Normal 25.9-34.0 [facility] Comment on above: Performed By: #### C BC ####[facility] [address]rhylum[address] [place] [address]Dr. Gema Beck MCHC (RBC) [Mass/Vol] 32.8 g/dL Normal 29.9-35.2 [facility] Comment on above: Performed By: #### C BC ####[facility] Amkmb[address] [place], [place] [address]Dr. Gema Beck MCV (RBC) [Entitic vol] 98.0 fL Critically high 80.0-94.0 [facility] Comment on above: Performed By: #### C BC ####[facility] [address] [place], [place] [address]Dr. Gema Kiran MONO # 0.7 103/ul Normal 0.3-0.8 [facility] Comment on above: Performed By: #### C BC ####[facility] Ierbynvfjs[address] [place], [place] [address]Dr. Gema Kiran Monocytes/100 WBC (Bld) 7.8 % Normal 1.7-12.0 [facility] Comment on above: Performed By: #### C BC ####[facility] Z[address]ouvfs[address] [place], [place] [address]Dr. Gema Beck NEUT # 5.9 103/ul Normal 1.4-6.5 [facility] Comment on above: Performed By: #### C BC ####[facility] I[address]kx[address]rr[address] [place], [place] [address]Dr. Enedeliaamairani Beck Neutrophils/100 WBC (Bld) 62.1 % Normal 43.0-75.0 [facility] Comment on above: Performed By: #### C BC ####[facility] N[address]cv[address] [place], [place] [address]DrSohail Gema Kiran Platelet mean volume (Bld) [Entitic vol] 9.1 fL Critically low 9.5-13.5 [facility] Comment on above: Performed By: #### C BC ####[facility] [address] [place] [address]XhSohail Beck PLT 342 103/ul Normal 150-450 [facility] Comment on above: Performed By: #### C BC ####[facility] [address] [place] [id number] Beck RBC 4.42 106/ul Critically low 4.70-6.[address] [facility] Comment on above: Performed By: #### C BC ####[facility] [address] [place] [id number] Beck WBC 9.5 103/ul Normal 4.0-11.0 [facility] Comment on above: Performed By: #### C BC ####[facility] [address] [place] [id number]. Gema Beck PROF 14(COMP METB)on 023 Albumin [Mass/Vol] 3.6 g/dL Normal 3.4-5.0 [facility] Comment on above: Performed By: #### C MP #### [facility] [address] [address] [address] Gema Beck Albumin/Globulin [Mass ratio] 1.1 {ratio} Normal [facility] Comment on above: Performed By: #### C MP #### [facility] [address] [address] [address] Gema Beck ALP [Catalytic activity/Vol] 66 U/L Normal 46-116 [facility] Comment on above: Performed By: #### C MP #### [facility] [address] [address] [address] Gema Beck ALT [Catalytic activity/Vol] 22 U/L Normal 16-63 [facility] Comment on above: Performed By: #### C MP #### [facility] [address] [address] [address] Gema Beck Anion gap [Moles/Vol] 13.2 mmol/L Normal [facility] Comment on above: Performed By: #### C MP #### [facility] [address] [address] [address] Gema Beck AST [Catalytic activity/Vol] 15 U/L Normal 15-37 [facility] Comment on above: Performed By: #### C MP #### [facility] [address] [place] [address] Dr. Gema Beck Bilirubin [Mass/Vol] 0.3 mg/dL Normal 0.2-1.0 [facility] Comment on above: Performed By: #### C MP #### [facility] [address] [place] [address] Dr. Gema Beck Calcium [Mass/Vol] 8.7 mg/dL Normal 8.5-10.1 [facility] Comment on above: Performed By: #### C MP #### [facility] [address] [place] [address] Dr. Gema Beck Chloride [Moles/Vol] 105 mmol/L Normal 98-107 [facility] Comment on above: Performed By: #### C MP #### [facility] [address] [place] [address] Dr. Gema Beck CO2 [Moles/Vol] 27.6 mmol/L Normal 21.0-32.0 [facility] Comment on above: Performed By: #### C MP #### [facility] [address] [place] [address] Dr. Gema Beck Creatinine [Mass/Vol] 0.83 mg/dL Normal 0.70-1.30 [facility] Comment on above: Performed By: #### C MP #### [facility] [address] [place] [address] Dr. Gema Beck EGFR-AF MARSHALLESE >60 Normal >=60 [facility] Comment on above: Performed By: #### C MP #### [facility] [address] [place] [address] Dr. Gema Beck EGFR-NON AF MARSHALLESE >60 Normal >=60 [facility] Comment on above: Performed By: #### C MP #### [facility] [address] [place] [address] Dr. Gema Beck Globulin (S) [Mass/Vol] 3.4 g/dL Normal [facility] Comment on above: Performed By: #### C MP #### [facility] [address] [place] [address] [address] Gema Beck Glucose [Mass/Vol] 97 mg/dL Normal 74-106 [facility] Comment on above: Performed By: #### C MP #### [facility] [address] [address] [address] Gema Beck Potassium [Moles/Vol] 3.8 mmol/L Normal 3.5-5.1 [facility] Comment on above: Performed By: #### C MP #### [facility] [address] [address] [address] Gema Beck Protein [Mass/Vol] 7.0 g/dL Normal 6.4-8.2 [facility] Comment on above: Performed By: #### C MP #### [facility] [address] [address] [address] Gema Beck Sodium [Moles/Vol] 142 mmol/L Normal 136-145 [facility] Comment on above: Performed By: #### C MP #### [facility] [address] [address] [address] Gema Beck Urea nitrogen [Mass/Vol] 17.0 mg/dL Normal 7.0-18.0 [facility] Comment on above: Performed By: #### C MP #### [facility] [address] [address] [address] Gema Beck Urea nitrogen/Creatinine [Mass ratio] 20.5 mg/mg Normal [facility] Comment on above: Performed By: #### C MP #### [facility] [address] [address] [address] Gema Beck CBC AUTO DIFFon 06-29-2022 BASO # 0.1 103/ul Normal 0.0-0.1 [facility] Comment on above: Performed By: #### C BC ####[facility] [address] [place] [address]Dr. Gema Beck Basophils/100 WBC (Bld) 1.4 % Normal 0.2-2.0 [facility] Comment on above: Performed By: #### C BC ####[facility] [address]yn[address] [place] [id number]. Gema Beck EO # 0.1 103/ul Normal 0.0-0.7 [facility] Comment on above: Performed By: #### C BC ####[facility] [address] [place] [id number]. Gema Beck Eosinophils/100 WBC (Bld) 2.1 % Normal 0.9-7.0 [facility] Comment on above: Performed By: #### C BC ####[facility] [address]uz[address] [place], [place] [address]Dr. Gema Beck Erythrocyte distribution width (RBC) [Ratio] 12.3 % Normal 11.0-15.0 [facility] Comment on above: Performed By: #### C BC ####[facility] Kalioesx[address] [place], [place] [address]Dr. Gema Beck Hematocrit (Bld) [Volume fraction] 42.2 % Normal 42.0-54.0 [facility] Comment on above: Performed By: #### C BC ####[facility] Lxnkngqkic[address] [place], [place] [address]Dr. Gema Beck Hemoglobin (Bld) [Mass/Vol] 13.9 g/dL Critically low 14.0-18.0 [facility] Comment on above: Performed By: #### C BC ####[facility] [address] [place], [place] [address]Dr. Gema Beck IG # 0.07 10e3/ul Critically high 0.00-0.03 [facility] Comment on above: Performed By: #### C BC ####[facility] Avftmgl[address] [place], [place] [address]Dr. Gema Beck IG % 1.1 % Critically high 0.0-0.5 [facility] Comment on above: Performed By: #### C BC ####[facility] Tuikeqaq[address] [place], [place] [address]Dr. Gema Beck LYMPH # 1.9 103/ul Normal 1.2-3.8 [facility] Comment on above: Performed By: #### C BC ####[facility] [address] [place] [id number]. Gema Kiran Lymphocytes/100 WBC (Bld) 28.6 % Normal 20.5-60.0 [facility] Comment on above: Performed By: #### C BC ####[facility] [address] [place] [id number]. Gema Beck MANUAL DIFF REQ NO Normal [facility] Comment on above: Performed By: #### C BC ####[facility] [address] [place] [id number]. Enedeliaamairani Beck MCH (RBC) [Entitic mass] 32.0 pg Normal 25.9-34.0 [facility] Comment on above: Performed By: #### C BC ####[facility] [address] [place], [place] [address]Dr. Gema Beck MCHC (RBC) [Mass/Vol] 32.9 g/dL Normal 29.9-35.2 [facility] Comment on above: Performed By: #### C BC ####[facility] [address]bl[address] [place] [id number]. Enedeliaamairani Beck MCV (RBC) [Entitic vol] 97.0 fL Critically high 80.0-94.0 [facility] Comment on above: Performed By: #### C BC ####[facility] [address] [place], [place] [address]Dr. Gema Beck MONO # 0.5 103/ul Normal 0.3-0.8 [facility] Comment on above: Performed By: #### C BC ####[facility] [address] [place], [place] [address]Dr. Gema Beck Monocytes/100 WBC (Bld) 8.0 % Normal 1.7-12.0 [facility] Comment on above: Performed By: #### C BC ####[facility] [address]qdzjj[address] [place], [place] [address]Dr. Gema Beck NEUT # 3.9 103/ul Normal 1.4-6.5 [facility] Comment on above: Performed By: #### C BC ####[facility] [address] [place] [id number]. Gema Beck Neutrophils/100 WBC (Bld) 58.8 % Normal 43.0-75.0 [facility] Comment on above: Performed By: #### C BC ####[facility] [address] [place] [id number]. Gema Beck Platelet mean volume (Bld) [Entitic vol] 9.6 fL Normal 9.5-13.5 [facility] Comment on above: Performed By: #### C BC ####[facility] [address]ns[address] [place] [id number]. Gema Beck PLT 334 103/ul Normal 150-450 [facility] Comment on above: Performed By: #### C BC ####[facility] [address]umg[address] [place] [id number]. Gema Beck RBC 4.35 106/ul Critically low 4.70-6.10 [facility] Comment on above: Performed By: #### C BC ####[facility] [address] [place] [id number]. Gema Beck WBC 6.7 103/ul Normal 4.0-11.0 [facility] Comment on above: Performed By: #### C BC ####[facility] [address] [place] [id number]. Gema Beck GLYCOHEMOGLOBIN A1Con 2021 ADA RECOMMENDATION SEE BELOW Normal [facility] Comment on above: Result Comment: ADA RECOMMENDED LIMIT 4.0 - 6.0 ADA THERAPEUTIC TARGET < 7.0 ACTION SUGGESTED > 7.0 Performed By: #### A 1C ####[facility] [address] [place] [id number]. Gema Beck Glucose [Mass/Vol] 120 mg/dL Normal [facility] Comment on above: Performed By: #### A 1C ####[facility] [address]kv[address] [place] [id number]. Gema Beck HbA1c (Bld) [Mass fraction] 5.8 % Normal 4.5-6.2 [facility] Comment on above: Performed By: #### A 1C ####[facility] [address] [place], [place] [address]Dr. Gema Beck LIPID PROFILEon 06-29-2022 CHOL-HDL RATIO NORM SEE BELOW Normal [facility] Comment on above: Result Comment: 3.3 - 4.4 LOW RISK 4.4 - 7.1 AVERAGE RISK 7.1 - 11.0 MODERATE RISK >11.0 HIGH RISK Performed By: #### L IPID, TSH, CMP #### [facility] [address] [address] [address] Gema Beck Cholesterol [Mass/Vol] 183 mg/dL Normal <=200 [facility] Comment on above: Performed By: #### L IPID, TSH, CMP #### [facility] [address] [address] [address] Gema Beck Cholesterol in HDL [Mass/Vol] 44 mg/dL Normal 40-60 [facility] Comment on above: Performed By: #### L IPID, TSH, CMP #### [facility] [address] [address] [address] Gema Beck Cholesterol in LDL [Mass/Vol] 125.2 mg/dL Normal [facility] Comment on above: Performed By: #### L IPID, TSH, CMP #### [facility] [address] [place], [place] [address] Dr. Gema Beck Cholesterol.total/Ch olesterol in HDL [Mass ratio] 4.2 {ratio} Normal [facility] Comment on above: Performed By: #### L IPID, TSH, CMP #### [facility] [address] [address] [address] Gema Beck HDL NORMAL > or = 60 mg/dl - LO W CARDIOVASCULAR RISK <40 mg/dl - HIGH CARDIOVASCULAR RISK Normal [facility] Comment on above: Performed By: #### L IPID, TSH, CMP #### [facility] [id number] Gema Beck LDL CALC NORMAL SEE BELOW Normal [facility] Comment on above: Result Comment: <100 mg/dl OPTIMAL 100 - 129 mg/dl NEAR OR ABOVE OPTIMAL 130 - 159 mg/dl BORDERLINE HIGH 160 - 189 mg/dl HIGH >190 mg/dl VERY HIGH Performed By: #### L IPID, TSH, CMP #### [facility] [address] [place] [address] Dr. Gema Beck Triglyceride [Mass/Vol] 69 mg/dL Normal <=150 [facility] Comment on above: Performed By: #### L IPID, TSH, CMP #### [facility] [address] [place] [address] Dr. Gema Beck VLDL CALC 13.8 mg/dL Normal [facility] Comment on above: Performed By: #### L IPID, TSH, CMP #### [facility] [address] [place] [address] Dr. Gema Beck PROF 14(COMP METB)on 022 Albumin [Mass/Vol] 3.6 g/dL Normal 3.4-5.0 [facility] Comment on above: Performed By: #### L IPID, TSH, CMP #### [facility] [address] [place] [address] Dr. Gema Beck Albumin/Globulin [Mass ratio] 1.1 {ratio} Normal [facility] Comment on above: Performed By: #### L IPID, TSH, CMP #### [facility] [address] [place] [address] Dr. Gema Beck ALP [Catalytic activity/Vol] 73 U/L Normal 46-116 [facility] Comment on above: Performed By: #### L IPID, TSH, CMP #### [facility] [address] [place] [address] Dr. Gema Beck ALT [Catalytic activity/Vol] 29 U/L Normal 16-63 [facility] Comment on above: Performed By: #### L IPID, TSH, CMP #### [facility] [address] [place] [address] Dr. Gema Beck Anion gap [Moles/Vol] 7.3 mmol/L Normal [facility] Comment on above: Performed By: #### L IPID, TSH, CMP #### [facility] [address] [address] [address] Gema Beck AST [Catalytic activity/Vol] 18 U/L Normal 15-37 [facility] Comment on above: Performed By: #### L IPID, TSH, CMP #### [facility] [address] [place] [address] Dr. Gema Beck Bilirubin [Mass/Vol] 0.4 mg/dL Normal 0.2-1.0 [facility] Comment on above: Performed By: #### L IPID, TSH, CMP #### [facility] [address] [place] [address] Dr. Gema Beck Calcium [Mass/Vol] 8.6 mg/dL Normal 8.5-10.1 [facility] Comment on above: Performed By: #### L IPID, TSH, CMP #### [facility] [address] [place] [address] Dr. Gema Beck Chloride [Moles/Vol] 104 mmol/L Normal 98-107 [facility] Comment on above: Performed By: #### L IPID, TSH, CMP #### [facility] [address] [place] [address] Dr. Gema Beck CO2 [Moles/Vol] 29.1 mmol/L Normal 21.0-32.0 [facility] Comment on above: Performed By: #### L IPID, TSH, CMP #### [facility] [address] [place] [address] Dr. Gema Beck Creatinine [Mass/Vol] 0.88 mg/dL Normal 0.70-1.30 [facility] Comment on above: Performed By: #### L IPID, TSH, CMP #### [facility] [address] [place] [address] Dr. Gema Beck EGFR-AF MARSHALLESE >60 Normal >=60 [facility] Comment on above: Performed By: #### L IPID, TSH, CMP #### [facility] [address] [place] [address] Dr. Gema Beck EGFR-NON AF MARSHALLESE >60 Normal >=60 [facility] Comment on above: Performed By: #### L IPID, TSH, CMP #### [facility] [address] [address] [address] Gema Beck Globulin (S) [Mass/Vol] 3.4 g/dL Normal [facility] Comment on above: Performed By: #### L IPID, TSH, CMP #### [facility] [address] [address] [address] Gema Beck Glucose [Mass/Vol] 99 mg/dL Normal 74-106 [facility] Comment on above: Performed By: #### L IPID, TSH, CMP #### [facility] [address] [address] [address] Gema Beck Potassium [Moles/Vol] 4.4 mmol/L Normal 3.5-5.1 [facility] Comment on above: Performed By: #### L IPID, TSH, CMP #### [facility] [address] [place] [address] Dr. Gema Beck Protein [Mass/Vol] 7.0 g/dL Normal 6.4-8.2 [facility] Comment on above: Performed By: #### L IPID, TSH, CMP #### [facility] [address] [place] [address] Dr. Gema Beck Sodium [Moles/Vol] 136 mmol/L Normal 136-145 [facility] Comment on above: Performed By: #### L IPID, TSH, CMP #### [facility] [address] [address] [address] Gema Beck Urea nitrogen [Mass/Vol] 17.0 mg/dL Normal 7.0-18.0 [facility] Comment on above: Performed By: #### L IPID, TSH, CMP #### [facility] [address] [place] [address] Dr. Gema Beck Urea nitrogen/Creatinine [Mass ratio] 19.3 mg/mg Normal [facility] Comment on above: Performed By: #### L IPID, TSH, CMP #### [facility] [address] [place] [address] Dr. Gema Beck TSHon 06-29-2022 TSH 1.148 uIU/mL Normal 0.358-3.740 [facility] Comment on above: Performed By: #### L IPID, TSH, CMP ####[facility] [address] [place] [address]Dr. Gema Beck UA RANDOM W/MICROSCOPICon BACTERIA NONE SEEN Normal NONE SEEN [facility] Comment on above: Performed By: #### U AMIC #### [facility] [address] [address] [address] Gema Beck Bilirubin Ql (U) SMALL Abnormal NEGATIVE [facility] Comment on above: Performed By: #### U AMIC #### [facility] [address] [place] [address] Dr. Gema Beck CAST NONE SEEN Normal NONE SEEN [facility] Comment on above: Performed By: #### U AMIC #### [facility] [address] [address] [address] Gema Beck Clarity (U) CLEAR Normal CLEAR [facility] Comment on above: Performed By: #### U AMIC #### [facility] [address] [address] [address] Gema Beck Color (U) LT. YELLOW Normal YELLOW [facility] Comment on above: Performed By: #### U AMIC #### [facility] [address] [address] [address] Gema Beck Crystals LM Nom (Urine sed) NONE SEEN Normal NONE SEEN [facility] Comment on above: Performed By: #### U AMIC #### [facility] [address] [address] [address] Gema Beck Epithelial cells LM Ql (Urine sed) RARE Normal NONE SEEN /RARE [facility] Comment on above: Performed By: #### U AMIC #### [facility] [address] [address] [address] Gema Beck Glucose Ql (U) Negative Normal NEGATIVE The [facility] Comment on above: Performed By: #### U AMIC #### [facility] [address] [address] [address] Gema Beck Hemoglobin Ql (U) Negative Normal NEGATIVE The [facility] Comment on above: Performed By: #### U AMIC #### [facility] [address] [address] [address] Gema Beck Ketones Ql (U) Negative Normal NEGATIVE The [facility] Comment on above: Performed By: #### U AMIC #### [facility] [address] [address] [address] Gema Beck LEUKOCYTES Negative Normal NEGATIVE [facility] Comment on above: Performed By: #### U AMIC #### [facility] [address] [address] [address] Gema Beck MUCOUS NONE SEEN Normal NONE SEEN [facility] Comment on above: Performed By: #### U AMIC #### [facility] [address] [place] [address] Dr. Gema Beck Nitrite Ql (U) Negative Normal NEGATIVE The [facility] Comment on above: Performed By: #### U AMIC #### [facility] [address] [place] [address] Dr. Gema Beck pH (U) 5.5 [pH] Normal 5-9 [facility] Comment on above: Performed By: #### U AMIC #### [facility] [address] [place] [address] Dr. Gema Beck RBC NONE SEEN Abnormal 0-2 [facility] Comment on above: Performed By: #### U AMIC #### [facility] [address] [place] [address] Dr. Gema Beck SPEC GRAVITY 1.010 Normal 1.005-<=1.[address] [facility] Comment on above: Performed By: #### U AMIC #### [facility] [address] [place] [address] Dr. Gema Beck UA PROTEIN Negative Normal NEGATIVE/ TRACE [facility] Comment on above: Performed By: #### U AMIC #### [facility] [address] [place] [address] Dr. Gema Beck Urobilinogen Qn (U) 0.2 {Merari'U}/dL Normal 0.2 - 1. 0 [facility] Comment on above: Performed By: #### U AMIC #### [facility] [address] [place] [address] Dr. Gema Beck WBC NONE SEEN Normal NONE SEEN [facility] Comment on above: Performed By: #### U AMIC #### [facility] [address] [place] [address] Dr. Gema Beck ALDOLASEon 03-04-2022 Aldolase 3.4 U/L Normal 3.3-10.3 [facility] Comment on above: Performed By: #### A LDOLAS ####[facility] [address] [place], [place] [address]Dr. Gema Beck CPKon 03-03-2022 CK [Catalytic activity/Vol] 205 U/L Normal 39-308 [facility] Comment on above: Performed By: #### L DH, CK, EVI #### [facility] [address] [place] [address] Dr. Gema Beck LDHon 03-03-2022 LDH 180 U/L Normal 85-227 [facility] Comment on above: Performed By: #### L DH, CK, EVI #### [facility] [address] [place] [address] Dr. Gema Beck MYOGLOBINon 03-03-2022 EVI 65 ng/mL Normal 16-96 [facility] Comment on above: Performed By: #### L DH, CK, EVI #### [facility] [address] [place] [address] Dr. Gema Beck CBC AUTO DIFFon 02-23-2022 BASO # 0.1 103/ul Normal 0.0-0.1 [facility] Comment on above: Performed By: #### C BC ####[facility] [address] [address]Dr. Gema Beck Basophils/100 WBC (Bld) 1.1 % Normal 0.2-2.0 [facility] Comment on above: Performed By: #### C BC ####[facility] [address] [id number]. Gema Beck EO # 0.1 103/ul Normal 0.0-0.7 [facility] Comment on above: Performed By: #### C BC ####[facility] [address] [id number]. Gema Beck Eosinophils/100 WBC (Bld) 1.5 % Normal 0.9-7.0 [facility] Comment on above: Performed By: #### C BC ####[facility] [address] [place], [place] [address]Dr. Gema Beck Erythrocyte distribution width (RBC) [Ratio] 12.0 % Normal 11.0-15.0 [facility] Comment on above: Performed By: #### C BC ####[facility] [address] [place], [place] [address]Dr. Gema Beck Hematocrit (Bld) [Volume fraction] 42.9 % Normal 42.0-54.0 [facility] Comment on above: Performed By: #### C BC ####[facility] [address] [address]Dr. Gema Beck Hemoglobin (Bld) [Mass/Vol] 14.0 g/dL Normal 14.0-18.0 [facility] Comment on above: Performed By: #### C BC ####[facility] [address] [address]Dr. Gema Beck IG # 0.04 10e3/ul Critically high 0.00-0.03 The [facility] Comment on above: Performed By: #### C BC ####[facility] [address] [id number]. Gema Beck IG % 0.6 % Critically high 0.0-0.[address] [facility] Comment on above: Performed By: #### C BC ####[facility] [address] [place], [place] [address]Dr. Gema Beck LYMPH # 2.1 103/ul Normal 1.2-3.8 [facility] Comment on above: Performed By: #### C BC ####[facility] [address] [id number]. Gema Beck Lymphocytes/100 WBC (Bld) 28.6 % Normal 20.5-60.0 [facility] Comment on above: Performed By: #### C BC ####[facility] [address] [id number]. Gema Beck MANUAL DIFF REQ NO Normal The [facility] Comment on above: Performed By: #### C BC ####[facility] [address] [id number]. Gema Kiran MCH (RBC) [Entitic mass] 31.9 pg Normal 25.9-34.0 [facility] Comment on above: Performed By: #### C BC ####[facility] [address] [id number]. Gema Kiran MCHC (RBC) [Mass/Vol] 32.6 g/dL Normal 29.9-35.2 [facility] Comment on above: Performed By: #### C BC ####[facility] [address] [id number]. Gema Beck MCV (RBC) [Entitic vol] 97.7 fL Critically high 80.0-94.0 [facility] Comment on above: Performed By: #### C BC ####[facility] [address] [address]Dr. Gema Kiran MONO # 0.6 103/ul Normal 0.3-0.8 [facility] Comment on above: Performed By: #### C BC ####[facility] [address] [id number]. Gema Kiran Monocytes/100 WBC (Bld) 7.8 % Normal 1.7-12.0 [facility] Comment on above: Performed By: #### C BC ####[facility] [address] [place], [place] [address]Dr. Enedeliaamairani Beck NEUT # 4.4 103/ul Normal 1.4-6.5 [facility] Comment on above: Performed By: #### C BC ####[facility] [address] [id number]. Gema Beck Neutrophils/100 WBC (Bld) 60.4 % Normal 43.0-75.0 [facility] Comment on above: Performed By: #### C BC ####[facility] [address] [id number]. Gema Beck Platelet mean volume (Bld) [Entitic vol] 9.2 fL Critically low 9.5-13.5 [facility] Comment on above: Performed By: #### C BC ####[facility] [address] [id number]. Gema Beck PLT 376 103/ul Normal 150-450 [facility] Comment on above: Performed By: #### C BC ####[facility] [address] [id number]. Gema Beck RBC 4.39 106/ul Critically low 4.70-6.10 [facility] Comment on above: Performed By: #### C BC ####[facility] [address] [id number]. Gema eBck WBC 7.2 103/ul Normal 4.0-11.0 [facility] Comment on above: Performed By: #### C BC ####[facility] [address] [id number] Beck PROF 14(COMP METB)on 022 Albumin [Mass/Vol] 3.7 g/dL Normal 3.4-5.0 [facility] Comment on above: Performed By: #### C MP #### [facility] [address] [address] [address] Gema Beck Albumin/Globulin [Mass ratio] 1.1 {ratio} Normal [facility] Comment on above: Performed By: #### C MP #### [facility] [address] [address] [address] Gema Beck ALP [Catalytic activity/Vol] 67 U/L Normal 46-116 [facility] Comment on above: Performed By: #### C MP #### [facility] [address] [address] [address] Gema Beck ALT [Catalytic activity/Vol] 28 U/L Normal 16-63 [facility] Comment on above: Performed By: #### C MP #### [facility] [address] [address] [address] Gema Beck Anion gap [Moles/Vol] 10.3 mmol/L Normal [facility] Comment on above: Performed By: #### C MP #### [facility] [address] [address] [address] Gema Beck AST [Catalytic activity/Vol] 19 U/L Normal 15-37 [facility] Comment on above: Performed By: #### C MP #### [facility] [address] [place] [address] Dr. Gema Beck Bilirubin [Mass/Vol] 0.5 mg/dL Normal 0.2-1.0 [facility] Comment on above: Performed By: #### C MP #### [facility] [address] [place] [address] Dr. Gema Beck Calcium [Mass/Vol] 8.8 mg/dL Normal 8.5-10.1 [facility] Comment on above: Performed By: #### C MP #### [facility] [address] [place] [address] Dr. Gema Beck Chloride [Moles/Vol] 104 mmol/L Normal 98-107 [facility] Comment on above: Performed By: #### C MP #### [facility] [address] [place] [address] Dr. Gema Beck CO2 [Moles/Vol] 30.0 mmol/L Normal 21.0-32.0 [facility] Comment on above: Performed By: #### C MP #### [facility] [address] [address] [address] Gema Beck Creatinine [Mass/Vol] 0.86 mg/dL Normal 0.70-1.30 [facility] Comment on above: Performed By: #### C MP #### [facility] [address] [address] [address] Gema Beck EGFR-AF MARSHALLESE >60 Normal >=60 The [facility] Comment on above: Performed By: #### C MP #### [facility] [address] [address] [address] Gema Beck EGFR-NON AF MARSHALLESE >60 Normal >=60 [facility] Comment on above: Performed By: #### C MP #### [facility] [address] [address] [address] Gema Beck Globulin (S) [Mass/Vol] 3.5 g/dL Normal [facility] Comment on above: Performed By: #### C MP #### [facility] [address] [place] [address] Dr. Gema Beck Glucose [Mass/Vol] 103 mg/dL Normal 74-106 [facility] Comment on above: Performed By: #### C MP #### [facility] [address] [place] [address] Dr. Gema Beck Potassium [Moles/Vol] 4.3 mmol/L Normal 3.5-5.1 [facility] Comment on above: Performed By: #### C MP #### [facility] [address] [place] [address] Dr. Gema Beck Protein [Mass/Vol] 7.2 g/dL Normal 6.4-8.2 The [facility] Comment on above: Performed By: #### C MP #### [facility] [address] [place] [address] Dr. Gema Beck Sodium [Moles/Vol] 140 mmol/L Normal 136-145 The [facility] Comment on above: Performed By: #### C MP #### [facility] [address] [address] [address] Gema Beck Urea nitrogen [Mass/Vol] 18.0 mg/dL Normal 7.0-18.0 [facility] Comment on above: Performed By: #### C MP #### [facility] [address] [place] [address] Dr. Gema Beck Urea nitrogen/Creatinine [Mass ratio] 20.9 mg/mg Normal [facility] Comment on above: Performed By: #### C #### [facility] [address] [address] [address] Gema Beck XR CHEST (2 VW)on 02-14-2020 XR CHEST (2 VW) EXAMINATION: TWO XRAY VIEWS OF THE CHEST 02/14/2020 2:30 pm COMPARISON: None. HISTORY: ORDERING SYSTEM PROVIDED HISTORY: insure deep inspiration FINDINGS: The lungs are without acute focal process. No effusion or pneumothorax. The cardiomediastinal silhouette is normal. The osseous structures are intact without acute process. IMPRESSION: Negative chest. Interpreted by: Terence Leroy MD Signed by: Terence Leroy MD 02/14/20 Final result Normal [facility] XR CHEST STANDARD (2 VW)on 0 02-14-2020 Negative chest. [place], [place] EXAMINATION: TWO XRA Y VIEWS OF THE CHEST 02/14/2020 2:30 pm COMPARISON: None. HISTORY: ORDERING SYSTEM PROVIDED HISTORY: insure deep inspiration FINDINGS: The lungs are without acute focal process. No effusion or pneumothorax. The cardiomediastinal silhouette is normal. The osseous structures are intact without acute process. [place], [place], [employer] Incoming Radiant Results From [employer] ([employer] - 02/14/2020 2:38 PM EDT EXAMINATION: TWO XRAY VIEWS OF THE CHEST 02/14/2020 2:30 pm COMPARISON: None. HISTORY: ORDERING SYSTEM PROVIDED HISTORY: insure deep inspiration FINDINGS: The lungs are without acute focal process. No effusion or pneumothorax. The cardiomediastinal silhouette is normal. The osseous structures are intact without acute process. IMPRESSION: [facility] [place] Vital Signs Date Time Vital Sign Value Performing Clinician Facility 02-21-2024 09:29-0400 Blood Pressure Location [facility] 02-21-2024 09:29-0400 Diastolic blood pressure 81 mm[Hg] [employer] [facility] 02-21-2024 09:29-0400 Heart rate 101 /min Wendi Orzech [facility] 02-21-2024 09:29-0400 Respiratory rate 16 /min Wendi Orzech [facility] 02-21-2024 09:29-0400 Systolic blood pressure 136 mm[Hg] Wendi Orzech [facility] 12-05-2023 13:49-0400 Blood Pressure Location Javier DOWNS [facility] 12-05-2023 13:49-0400 Diastolic blood pressure 84 mm[Hg] Javier DOWNS [facility] 12-05-2023 13:49-0400 Heart rate 87 /min Javier DOWNS [facility] 12-05-2023 13:49-0400 Respiratory rate 16 /min Javier DOWNS [facility] 12-05-2023 13:49-0400 Systolic blood pressure 131 mm[Hg] Javier DOWNS [facility] 09-29-2023 13:07-0500 Body height 177.8 cm Shavonne Chowdary [employer] Work Phone: [facility] 09-29-2023 13:07-0500 Body mass index (BMI) [Ratio] 45.31 kg/m2 Shavonne Chowdary [employer] Work Phone: [facility] 09-29-2023 13:07-0500 Body temperature 98.2 [degF] Shavonne Chowdary CABLE [employer] Work Phone: [facility] 09-29-2023 13:07-0500 Body weight 143.25 kg Shavonne Chowdary CABLE RES[employer]ER Work Phone: [facility] 09-29-2023 13:07-0500 Diastolic blood pressure 88 mm[Hg] Shavonne Epi CABLE [employer]ER Work Phone: [facility] 09-29-2023 13:07-0500 Heart rate 91 /min Shavonne Epi CABLE RES[employer]ER Work Phone: [facility] 09-29-2023 13:07-0500 Respiratory rate 19 /min Shavonne Epi CABLE RES[employer]ER Work Phone: [facility] 09-29-2023 13:07-0500 SaO2% (BldA) [Mass fraction] 98 % Shavonne Epi [employer]ABLE RES[employer]ER Work Phone: [facility] 09-29-2023 13:07-0500 Systolic blood pressure 138 mm[Hg] Shavonne Dayannamariikia CABLE RES[employer]ER Work Phone: [facility] 03-28-2023 11:36-0400 Blood Pressure Location Javier ODWNS [facility] 03-28-2023 11:36-0400 Diastolic blood pressure 80 mm[Hg] Javier DOWNS [facility] 03-28-2023 11:36-0400 Heart rate 84 /min Javier DOWNS [facility] 03-28-2023 11:36-0400 Respiratory rate 16 /min Javier DOWNS [facility] 03-28-2023 11:36-0400 Systolic blood pressure 135 mm[Hg] Javier DOWNS [facility] 01-03-2023 11:30-0400 Body height 177.8 cm Carrie Staples Other [employer] Other 01-03-2023 11:30-0400 Body mass index (BMI) [Ratio] 45.59 kg/m2 Carrie Staples Other [employer] Other 01-03-2023 11:30-0400 Body weight 144.15 kg Carrie Staples Other [employer] Other 01-03-2023 11:30-0400 Diastolic blood pressure 75 mm[Hg] Carrie Staples Other [employer] Other 01-03-2023 11:30-0400 Respiratory rate 18 /min Carrie Staples Other [employer] Other 01-03-2023 11:30-0400 SaO2% (BldA) [Mass fraction] 95 % Carrie Staples Other [employer] Other 01-03-2023 11:30-0400 Systolic blood pressure 112 mm[Hg] Carrie Staples Other [employer] Other 02-14-2020 14:16-0400 BP Diastolic 79 mm[Hg] [place] 02-14-2020 14:16-0400 BP Systolic 118 mm[Hg] [place] , [place] 02-14-2020 14:16-0400 Pulse (Heart Rate) 87 /min [place] 02-14-2020 14:16-0400 Pulse Oximetry 97 % Joshua [place], [place] 02-14-2020 13:29-0400 Body Temperature 97.39 [degF] [employer] [place] 02-14-2020 13:29-0400 Respiratory Rate 16 /min Joshua [place] Encounters Encounter Date Encounter Type Care Provider Facility Start: 02-21-2024 End: 02-21-2024 ambulatory SHAVONNE CHOWDARY Not Available Start: 02-21-2024 End: 02-21-2024 ambulatory Wendi X Orzech Facility:[facility] Start: 02-21-2024 End: 02-21-2024 Patient encounter procedure Wendi X Orzech [facility] Start: 01-23-2024 End: 01-23-2024 ambulatory Javier DOWNS Facility:[facility] Start: 01-23-2024 End: 01-23-2024 Patient encounter procedure Javier DOWNS [facility] Start: 12-21-2023 End: 12-21-2023 ambulatory FLORES NATHALY Not Available Start: 12-05-2023 End: 12-05-2023 ambulatory Javierje DOWNS Facility:[facility] Start: 12-05-2023 End: 12-05-2023 Patient encounter procedure Javier DOWNS [facility] Start: 09-29-2023 Bamboo flowsheet Shavonne Chowdary CABLE RES[employer]ER Work Phone: [facility] Start: 09-29-2023 Bamboo flowsheet Shavonne Chowdary CABLE RES[employer]ER Work Phone: [facility] Start: 09-29-2023 End: 09-29-2023 ambulatory SHAVONNE CHOWDARY Not Available Start: 09-29-2023 End: 09-29-2023 Office outpatient visit 25 minutes Shavonne Chowdary [employer] Work Phone: [facility] Comment on above: Benign hypertension (CMS/HCC) (Primary Dx); Morbid (severe) obesity due to excess calories (E66.01); Body mass index [BMI] 45.0-49.9, adult (Z68.42); Aortic aneurysm without rupture, unspecified portion of aorta (CMS/HCC); High cholesterol (CMS/HCC); SCOT (generalized anxiety disorder) (CMS/HCC); Screening for prostate cancer; Pre-diabetes; SALVATORE on CPAP; Mild persistent asthma with exacerbation (CMS/[facility]); Lung nodule Start: 09-26-2023 ambulatory Javier Starkeyi ty:[facility] [place] Start: 09-15-2023 End: 09-16-2023 ambulatory Shavonne Chowdary [facility] Facility:[facility] Start: 09-05-2023 End: 09-06-2023 ambulatory Shavonne Chowdary [facility] Facility:[facility] Start: 04-21-2023 Telephone encounter Rafael sandoval MD Work Phone: Cardiothoracic Comment on above: Referral Information Start: 03-28-2023 End: 03-28-2023 ambulatory Javier DOWNS Facility:[facility] Start: 03-28-2023 End: 03-28-2023 Patient encounter procedure Javier DOWNS [facility] Start: 03-17-2023 End: 03-18-2023 ambulatory Shavonne Chowdary [facility] Facility:[facility] Start: 03-07-2023 End: 03-07-2023 ambulatory SHAVONNE CHOWDARY Facility:[facility] Start: 03-07-2023 End: 03-07-2023 Patient encounter procedure Javier DOWNS [facility] Start: 01-18-2023 End: 01-18-2023 ambulatory DANIELE DRISCOLL . Facility:[facility] Start: 01-13-2023 End: 01-14-2023 ambulatory ADITHYA CHOWDARY Facility:[facility] Start: 01-03-2023 End: 01-03-2023 ambulatory Carrie Staples Other [employer] Other Start: 01-03-2023 Office outpatient vi sit 15 minutes Carrie Staples [facility] Start: 09-01-2022 End: 09-02-[address] DOCTOR LOVE Facility:[facility] Start: 07-28-2022 End: 07-29-2022 ambulatory ADITHYA CHOWDARY Facility:[facility] Start: 07-05-2022 End: 07-06-[address] DARIN CHAPA Facility:[facility] Start: 06-29-2022 End: 06-30-2022 ambulatory ADITHYA CHOWDARY Facility:[facility] Start: 03-03-2022 End: 03-04-2022 ambulatory ADITHYA CHOWDARY Facility:[facility] Start: 02-23-2022 End: 02-24-2022 ambulatory ADITHYA CHOWDARY Facility:[facility] Start: 02-14-2020 End: 02-14-2020 Emergency department patient visit JOSHUA PEREZ [facility] Start: 02-14-2020 End: 02-14-2020 Emergency department patient visit Joshua Perez Work Phone: [facility] ED Comment on above: Dyspnea and respirat ory abnormalities (Primary Dx) Start: 08-28-2014 End: 08-28-2014 Telephone encounter Italo Pruitt MD Work Phone: Orthopaedics Comment on above: Surgical Followup Procedures Date Procedure Procedure Detail Performing Clinician Start: 06-29-2022 PSA screening ADITHYA CHOWDARY Comment on above: Performed By: #### P [facility] ####[facility] [address] [place] [address] 28228SoSohail Beck Start: 02-14-2020 Radiologic exam ches t 2 views JOSHUA PEREZ Start: 02-14-2020 Radiologic exam ches t 2 views Joshua Perez Work Phone: Cooled radiofrequenc y ablation of nerve using ultrasonographic guidance Javier DOWNS Hydrocelectomy Javier Coy Knee region structur e (body structure) Javier DOWNS Large intestine excision Ligia DOWNS Shoulder region stru cture (body structure) Javier DOWNS Plan of Treatment Date Care Activity Detail Author Start: 12-28-2023 End: 12-28-2023 Patient encounter procedure 12/28/2023 1:00 PM EDT Office Visit [facility] [address] [place] [id number] Shavonne Chowdary NP [address] [place] [address] [facility] Start: 09-29-2023 End: 09-29-2024 CBC W Auto Differential panel - Blood CBC and differential Lab Routine Benign hypertension (CMS/HCC) Expected: 09/29/2023 (Approximate), Expires: 09/29/2024 [facility] Work Phone: Comment on above: Expected: 09/29/2023 (Approximate), Expires: 09/29/2024 Start: 09-29-2023 End: 09-29-2024 Comprehensive metabolic 2000 panel - Serum or Plasma Comprehensive metabolic panel Lab Routine Pre-diabetes Expected: 09/29/2023 (Approximate), Expires: 09/29/2024 [facility] Comment on above: Expected: 09/29/2023 (Approximate), Expires: 09/29/2024 Start: 09-29-2023 End: 09-29-2024 Hemoglobin A1c measurement Hemoglobin A1c Lab Routine Pre-diabetes Expected: 09/29/2023 (Approximate), Expires: 09/29/2024 [facility] Comment on above: Expected: 09/29/2023 (Approximate), Expires: 09/29/2024 Start: 09-29-2023 End: 09-29-2024 Lipid 1996 panel - Serum or Plasma Lipid panel Lab Routine High cholesterol (CMS/HCC) Expected: 09/29/2023 (Approximate), Expires: 09/29/2024 [facility] Comment on above: Expected: 09/29/2023 (Approximate), Expires: 09/29/2024 Start: 09-29-2023 End: 09-29-2024 Microalbumin/Creatinine panel in random Urine Microalbumin / creatinine, urine ratio Lab Routine Benign hypertension (CMS/HCC) Pre-diabetes Expected: 09/29/2023 (Approximate), Expires: 09/29/2024 [facility] Comment on above: Expected: 09/29/2023 (Approximate), Expires: 09/29/2024 Start: 09-29-2023 End: 09-29-2024 Prostate specific Ag [Mass/volume] in Serum or Plasma PSA Lab Routine Screening for prostate cancer Expected: 09/29/2023 (Approximate), Expires: 09/29/2024 [facility] Comment on above: Expected: 09/29/2023 (Approximate), Expires: 09/29/2024 Start: 09-29-2023 End: 09-29-2024 Urinalysis complete panel - Urine Urinalysis with reflex microscopic (clean catch) Lab Routine Benign hypertension (CMS/HCC) Pre-diabetes Expected: 09/29/2023 (Approximate), Expires: 09/29/2024 [facility] Comment on above: Expected: 09/29/2023 (Approximate), Expires: 09/29/2024 Start: 04-22-2023 Influenza vaccination Influenza Vacc ine (#1) [facility] Start: 08-22-2022 Depression Assessment Depression Ass essment [facility] Start: 2021 Prostate Cancer Screening Discussion Prostate Cancer Screening Discussion [facility] Start: 04-22-2021 Influenza vaccination INFLUENZ A (Season Ended) [facility] Start: 04-22-2020 Influenza vaccination Flu vacc ine (Season Ended) [place], [place] Start: 2016 Screening for malign ant neoplasm of colon [place], [place] Start: 2016 Shingles Vaccine (1 of 2) Shingles Vaccine (1 of 2) [place] Start: 2016 SHINGRIX VACCINE (1 of 2) SHINGRIX VACCINE (1 of 2) [facility] Start: 2011 Cologuard (FIT-DNA) Cologuard (FIT-D NA) [facility] Start: 2011 Colonoscopy Colonoscopy [facility] Start: 2011 Colorectal Cancer Screening Colorectal Cancer Screening [facility] Start: [address] COLONOGRAPHY [facility] Start: 2011 DIABETES SCREEN DIABETES SCREEN [facility] Start: 2011 Diabetes Screening Diabetes Screenin g [facility] Start: 2011 Fecal Occult Blood Fecal Occult Bloo d [facility] Start: 2011 SIGMOIDOSCOPY SIGMOIDOSCOPY [facility] Start: 2006 Lipid panel Lipid screen [place], [place] Start: 2001 Lipid 1996 panel - S dayanara or Plasma Lipid Screening [facility] Start: 2001 LIPID SCREEN LIPID SCREEN [facility] Start: 1985 DTaP/Tdap/Td vaccine (1 - Tdap) DTaP/Tdap/Td vaccine (1 - Tdap) [place], [place] Start: 1985 Urine microalbumin profile [facility] Start: 1984 HEPATITIS C SCREENING HEPATITIS C SC REENING [facility] Start: 1984 HIV SCREENING HIV SCREENING [facility] Start: 1981 HIV screening HIV screen [place], [place] Start: 1978 Adult depression screening assessment DEPRESSION SCREENING [facility] Start: 1966 Covid-19 Vaccine (#1) Covid-19 Vacci ne (#1) [facility] Start: 1966 Creatinine measurement Creatinine mo nitoring [place], [place] Start: 1966 Hepatitis B Vaccine (1 of 3 - 3-dose series) Hepatitis B Vaccine (1 of 3 - 3-dose series) [facility] Start: 1966 Potassium monitoring Potassium monit oring [place] Immunizations Immunization Date Immunization Notes Care Provider Claire jimenez 07-02-2020 influenza virus vaccine, unspecified formulation Javier DOWNS [facility] Payers Date Payer Category Payer Unknown [id number] 2014 Unknown BCBS BCBS OUT OF STATE xxxxxxxxxxxx 2014-Present [address] [place] [address] xxxxxxxxxxxx [id number] 2004 Unknown [id number] .[id number] 2004 Unknown [id number]. 1.13.159.2.7.3 .[id number] 1966 Unknown [id number] 2.16.840.1.087793.3.579.2.173 1966 Unknown [id number] 2.16.840.1.756633.3.579.2.593 1966 Unknown [id number] 2.16.840.1.284770.3.579.2.593 1966 Unknown [id number] 2.16.840.1.775435.3.579.2.593 1966 Unknown [id number] 2.16.840.1.682915.3.579.2.593 1966 Unknown [id number] 2.16.840.1.487192.3.579.2.593 1966 Unknown [id number] 2.16.840.1.557631.3.579.2.593 1966 Unknown [id number] 2.16.840.1.514727.3.579.2.593 1966 Unknown [id number] 2.16.840.1.849426.3.579.2.593 1966 Unknown [id number] 2.16.840.1.912397.3.579.2.196 1966 Unknown [id number] 2.16.840.1.780291.3.579.2.196 1966 Unknown [id number] 2.16.840.1.923832.3.579.2.196 1966 Unknown [id number] 2.16.840.1.480714.3.579.2.196 1966 Unknown [id number] 2.16.840.1.449129.3.579.2.196 1966 Unknown [id number] 2.16.840.1.259875.3.579.2.727 1966 Unknown [id number] 2.16.840.1.306187.3.579.2.727 1966 Unknown [id number] 2.16.840.1.881969.3.579.2.727 1966 Unknown [id number] 2.16.840.1.331401.3.579.2.727 1966 Unknown [id number] 2.16.840.1.327937.3.579.2.727 1966 Unknown [id number] 2.16.840.1.519179.3.579.2.727 1966 Unknown [id number] 2.16.840.1.091681.3.579.2.125 9 1966 Unknown [id number] 2.16.840.1.519833.3.579.2.125 9 1966 Unknown [id number] 2.16.840.1.131135.3.579.2.125 9 1959 Unknown [id number] Social History Date Type Detail Facility Start: 02-14-2020 End: 02-21-2024 Tobacco smoking status MNIS Former smoker [facility] History of tobacco use Cigarette Smoker [place], [place] Start: 1966 Sex Assigned At Not on file [place], [place] Exposure to SARS-CoV -2 (event) Unable to assess [place], [place] Start: 07-30-2014 Tobacco smoking stat us MNIS Current every day smoker [facility] Start: 07-30-2014 End: 09-29-2023 Cigarettes smoked current (pack per day) - Reported [facility] Start: 07-30-2014 Tobacco use and exposure Never used [facility] Start: 07-30-2014 End: 09-29-2023 Alcohol intake Current drinker of alcohol (finding) [facility] Start: 07-30-2014 Alcohol Comment social [facility] Start: 08-24-2023 End: 09-29-2023 Sex Assigned At [facility] Tobacco smoking status Never [facility] History of tobacco use Current smoker [facility] Start: 09-27-2023 Alcohol Comment monthly or les s, caffeine more than 4 cups per day [facility] Within the last year , have you been afraid of your partner or ex-partner? No [facility] Do you belong to any clubs or organizations such as moravian groups, unions, [employer] or athletic groups, or school groups? Yes [facility] Are you now , , , , never or living with a partner? [facility] How often to you hav e a drink containing alcohol? Never [facility] Do you feel stress - tense, restless, nervous, or anxious, or unable to sleep at night because your mind is troubled all the time - these days [OSQ] To some extent [facility] (I/We) worried wheth er (my/our) food would run out before (I/we) got money to buy more. Never true [facility] Functional Status Date Assessment Result Facility 02-21-2024 Functional Status N/A [facility] 12-05-2023 Functional Status N/A [facility] 03-28-2023 Functional Status N/A [facility] 03-07-2023 Functional Status N/A [facility] Clinical Notes 08-28-2014 to 02-21-2024 Shavonne Chowdary, AJIT - 09/29/2023 1:36 PM Saranya Chowdary, CABLE RESPOOLER - 09/29/2023 1:31 PM Saranya Chowdary, AJIT - 09/29/2023 1:30 PM ESTShavonne Chowdary, CABLE RESPOOLER - 09/29/2023 1:30 PM EST Note Date & Type Note Facility 02-21-2024 Hospital Discharge instructions Patient Education 02/21/2024 12:25:41 Hypogonadism, Male Hypogonadism, Male Male hypogonadism is a condition of having a level of testosterone that is lower than normal. Testosterone is a chemical, or hormone, that is made mainly in the testicles. In boys, testosterone is responsible for the development of male characteristics during puberty. These include: Making the penis bigger. Growing and building the muscles. Growing facial hair. Deepening the voice. In adult men, testosterone is responsible for maintaining: An interest in sex and the ability to have sex. Muscle mass. Sperm production. Red blood cell production. Bone strength. Testosterone also gives men energy and a sense of well-being. Testosterone normally decreases as men age and the testicles make less testosterone. Testosterone levels can vary from man to man. Not all men will have signs and symptoms of low testosterone. Weight, alcohol use, medicines, and certain medical conditions can affect a man's testosterone level. What are the causes? This condition is caused by: A natural decrease in testosterone that occurs as a man grows older. This is the main cause of this condition. Use of medicines, such as antidepressants, steroids, and opioids. Diseases and conditions that affect the testicles or the making of testosterone. These include: ?Injury or damage to the testicles from trauma, cancer, cancer treatment, or infection. ?Diabetes. ?Sleep apnea. ?Genetic conditions that men are born with. ?Disease of the pituitary gland. This gland is in the brain. It produces hormones. ?Obesity. ?Metabolic syndrome. This is a group of diseases that affect blood pressure, blood sugar, cholesterol, and belly fat. ?HIV or AIDS. ?Alcohol abuse. ?Kidney failure. ?Other long-term or chronic diseases. What are the signs or symptoms? Common symptoms of this condition include: Loss of interest in sex (low sex drive). Inability to have or maintain an erection (erectile dysfunction). Feeling tired (fatigue). Mood changes, like irritability or depression. Loss of muscle and body hair. Infertility. Large breasts. Weight gain (obesity). How is this diagnosed? Your health care provider can diagnose hypogonadism based on: Your signs and symptoms. A physical exam to check your testosterone levels. This includes blood tests. Testosterone levels can change throughout the day. Levels are highest in the morning. You may need to have repeat blood tests before getting a diagnosis of hypogonadism. Depending on your medical history and test results, your health care provider may also do other tests to find the cause of low testosterone. How is this treated? This condition is treated with testosterone replacement therapy. Testosterone can be given by: Injection or through pellets inserted under the skin. Gels or patches placed on the skin or in the mouth. Testosterone therapy is not for everyone. It has risks and side effects. Your health care provider will consider your medical history, your risk for prostate cancer, your age, and your symptoms before putting you on testosterone replacement therapy. Follow these instructions at home: Take [id number] and prescription medicines only as told by your health care provider. Eat foods that are high in fiber, such as beans, whole grains, and fresh fruits and vegetables. Limit foods that are high in fat and processed sugars, such as fried or sweet foods. If you drink alcohol: ?Limit how much you have to 0 2 drinks a day. ?Know how much alcohol is in your drink. In the [place] one drink equals one 12 oz bottle of beer (355 mL), one 5 oz glass of wine (148 mL), or one 1 oz glass of hard liquor (44 mL). Return to your normal activities as told by your health care provider. Ask your health care provider what activities are safe for you. Keep all follow-up visits. This is important. Contact a health care provider if: You have any of the signs or symptoms of low testosterone. You have any side effects from testosterone therapy. Summary Male hypogonadism is a condition of having a level of testosterone that is lower than normal. The natural drop in testosterone production that occurs with age is the most common cause of this condition. Low testosterone can also be caused by many diseases and conditions that affect the testicles and the making of testosterone. This condition is treated with testosterone replacement therapy. There are risks and side effects of testosterone therapy. Your health care provider will consider your age, medical history, symptoms, and risks for prostate cancer before putting you on testosterone therapy. This information is not intended to replace advice given to you by your health care provider. Make sure you discuss any questions you have with your health care provider. Document Revised: 04/09/2021 Document Reviewed: 04/09/2021 [employer] Patient Education 2022 [employer]. 02/21/2024 12:25:41 Benign Prostatic Hyperplasia Benign Prostatic Hyperplasia Benign prostatic hyperplasia (BPH) is an enlarged prostate gland that is caused by the normal aging process. The prostate may get bigger as a man gets older. The condition is not caused by cancer. The prostate is a walnut-sized gland that is involved in the production of semen. It is located in front of the rectum and below the bladder. The bladder stores urine. The urethra carries stored urine out of the body. An enlarged prostate can press on the urethra. This can make it harder to pass urine. The buildup of urine in the bladder can cause infection. Back pressure and infection may progress to bladder damage and kidney (renal) failure. What are the causes? This condition is part of the normal aging process. However, not all men develop problems from this condition. If the prostate enlarges away from the urethra, urine flow will not be blocked. If it enlarges toward the urethra and compresses it, there will be problems passing urine. What increases the risk? This condition is more likely to develop in men older than 50 years. What are the signs or symptoms? Symptoms of this condition include: Getting up often during the night to urinate. Needing to urinate frequently during the day. Difficulty starting urine flow. Decrease in size and strength of your urine stream. Leaking (dribbling) after urinating. Inability to pass urine. This needs immediate treatment. Inability to completely empty your bladder. Pain when you pass urine. This is more common if there is also an infection. Urinary tract infection (UTI). How is this diagnosed? This condition is diagnosed based on your medical history, a physical exam, and your symptoms. Tests will also be done, such as: A post-void bladder scan. This measures any amount of urine that may remain in your bladder after you finish urinating. A digital rectal exam. In a rectal exam, your health care provider checks your prostate by putting a lubricated, gloved finger into your rectum to feel the back of your prostate gland. This exam detects the size of your gland and any abnormal lumps or growths. An exam of your urine (urinalysis). A prostate specific antigen (PSA) screening. This is a blood test used to screen for prostate cancer. An ultrasound. This test uses sound waves to electronically produce a picture of your prostate gland. Your health care provider may refer you to a specialist in kidney and prostate diseases (urologist). How is this treated? Once symptoms begin, your health care provider will monitor your condition (active surveillance or watchful waiting). Treatment for this condition will depend on the severity of your condition. Treatment may include: Observation and yearly exams. This may be the only treatment needed if your condition and symptoms are mild. Medicines to relieve your symptoms, including: ?Medicines to shrink the prostate. ?Medicines to relax the muscle of the prostate. Surgery in severe cases. Surgery may include: ?Prostatectomy. In this procedure, the prostate tissue is removed completely through an open incision or with a laparoscope or robotics. ?Transurethral resection of the prostate (TURP). In this procedure, a tool is inserted through the opening at the tip of the penis (urethra). It is used to cut away tissue of the inner core of the prostate. The pieces are removed through the same opening of the penis. This removes the blockage. ?Transurethral incision (TUIP). In this procedure, small cuts are made in the prostate. This lessens the prostate's pressure on the urethra. ?Transurethral microwave thermotherapy (TUMT). This procedure uses microwaves to create heat. The heat destroys and removes a small amount of prostate tissue. ?Transurethral needle ablation (TUNA). This procedure uses radio frequencies to destroy and remove a small amount of prostate tissue. ?Interstitial laser coagulation (ILC). This procedure uses a laser to destroy and remove a small amount of prostate tissue. ?Transurethral electrovaporization (TUVP). This procedure uses electrodes to destroy and remove a small amount of prostate tissue. ?Prostatic urethral lift. This procedure inserts an implant to push the lobes of the prostate away from the urethra. Follow these instructions at home: Take psqj-ghp-zbhgyhx and prescription medicines only as told by your health care provider. Monitor your symptoms for any changes. Contact your health care provider with any changes. Avoid drinking large amounts of liquid before going to bed or out in public. Avoid or reduce how much caffeine or alcohol you drink. Give yourself time when you urinate. Keep all follow-up visits. This is important. Contact a health care provider if: You have unexplained back pain. Your symptoms do not get better with treatment. You develop side effects from the medicine you are taking. Your urine becomes very dark or has a bad smell. Your lower abdomen becomes distended and you have trouble passing urine. Get help right away if: You have a fever or chills. You suddenly cannot urinate. You feel light-headed or very dizzy, or you faint. There are large amounts of blood or clots in your urine. Your urinary problems become hard to manage. You develop moderate to severe low back or flank pain. The flank is the side of your body between the ribs and the hip. These symptoms may be an emergency. Get help right away. Call 911. Do not wait to see if the symptoms will go away. Do not drive yourself to the hospital. Summary Benign prostatic hyperplasia (BPH) is an enlarged prostate that is caused by the normal aging process. It is not caused by cancer. An enlarged prostate can press on the urethra. This can make it hard to pass urine. This condition is more likely to develop in men older than 50 years. Get help right away if you suddenly cannot urinate. This information is not intended to replace advice given to you by your health care provider. Make sure you discuss any questions you have with your health care provider. Document Revised: 02/24/2022 Document Reviewed: 02/24/2022 [employer] Patient Education 2022 [employer]. 02/21/2024 12:25:39 Erectile Dysfunction Erectile Dysfunction Erectile dysfunction (ED) is the inability to get or keep an erection in order to have sexual intercourse. ED is considered a symptom of an underlying disorder and is not considered a disease. ED may include: Inability to get an erection. Lack of enough hardness of the erection to allow penetration. Loss of erection before sex is finished. What are the causes? This condition may be caused by: Physical causes, such as: ?Artery problems. This may include heart disease, high blood pressure, atherosclerosis, and diabetes. ?Hormonal problems, such as low testosterone. ?Obesity. ?Nerve problems. This may include back or pelvic injuries, multiple sclerosis, Parkinson's disease, spinal cord injury, and stroke. Certain medicines, such as: ?Pain relievers. ?Antidepressants. ?Blood pressure medicines and water pills (diuretics). ?Cancer medicines. ?Antihistamines. ?Muscle relaxants. Lifestyle factors, such as: ?Use of drugs such as marijuana, cocaine, or opioids. ?Excessive use of alcohol. ?Smoking. ?Lack of physical activity or exercise. Psychological causes, such as: ?Anxiety or stress. ?Sadness or depression. ?Exhaustion. ?Fear about sexual performance. ?Guilt. What are the signs or symptoms? Symptoms of this condition include: Inability to get an erection. Lack of enough hardness of the erection to allow penetration. Loss of the erection before sex is finished. Sometimes having normal erections, but with frequent unsatisfactory episodes. Low sexual satisfaction in either partner due to erection problems. A curved penis occurring with erection. The curve may cause pain, or the penis may be too curved to allow for intercourse. Never having nighttime or morning erections. How is this diagnosed? This condition is often diagnosed by: Performing a physical exam to find other diseases or specific problems with the penis. Asking you detailed questions about the problem. Doing tests, such as: ?Blood tests to check for diabetes mellitus or high cholesterol, or to measure hormone levels. ?Other tests to check for underlying health conditions. ?An ultrasound exam to check for scarring. ?A test to check blood flow to the penis. Doing a sleep study at home to measure nighttime erections. How is this treated? This condition may be treated by: Medicines, such as: ?Medicine taken by mouth to help you achieve an erection (oral medicine). ?Hormone replacement therapy to replace low testosterone levels. ?Medicine that is injected into the penis. Your health care provider may instruct you how to give yourself these injections at home. ?Medicine that is delivered with a short applicator tube. The tube is inserted into the opening at the tip of the penis, which is the opening of the urethra. A tiny pellet of medicine is put in the urethra. The pellet dissolves and enhances erectile function. This is also called MUSE (medicated urethral system for erections) therapy. Vacuum pump. This is a pump with a ring on it. The pump and ring are placed on the penis and used to create pressure that helps the penis become erect. Penile implant surgery. In this procedure, you may receive: ?An inflatable implant. This consists of cylinders, a pump, and a reservoir. The cylinders can be inflated with a fluid that helps to create an erection, and they can be deflated after intercourse. ?A semi-rigid implant. This consists of two silicone rubber rods. The rods provide some rigidity. They are also flexible, so the penis can both curve downward in its normal position and become straight for sexual intercourse. Blood vessel surgery to improve blood flow to the penis. During this procedure, a blood vessel from a different part of the body is placed into the penis to allow blood to flow around (bypass) damaged or blocked blood vessels. Lifestyle changes, such as exercising more, losing weight, and quitting smoking. Follow these instructions at home: Medicines Take [id number] and prescription medicines only as told by your health care provider. Do not increase the dosage without first discussing it with your health care provider. If you are using self-injections, do injections as directed by your health care provider. Make sure you avoid any veins that are on the surface of the penis. After giving an injection, apply pressure to the injection site for 5 minutes. Talk to your health care provider about how to prevent headaches while taking ED medicines. These medicines may cause a sudden headache due to the increase in blood flow in your body. General instructions Exercise regularly, as directed by your health care provider. Work with your health care provider to lose weight, if needed. Do not use any products that contain nicotine or tobacco. These products include cigarettes, chewing tobacco, and vaping devices, such as e-cigarettes. If you need help quitting, ask your health care provider. Before using a vacuum pump, read the instructions that come with the pump and discuss any questions with your health care provider. Keep all follow-up visits. This is important. Contact a health care provider if: You feel nauseous. You are vomiting. You get sudden headaches while taking ED medicines. You have any concerns about your sexual health. Get help right away if: You are taking oral or injectable medicines and you have an erection that lasts longer than 4 hours. If your health care provider is unavailable, go to the nearest emergency room for evaluation. An erection that lasts much longer than 4 hours can result in permanent damage to your penis. You have severe pain in your groin or abdomen. You develop redness or severe swelling of your penis. You have redness spreading at your groin or lower abdomen. You are unable to urinate. You experience chest pain or a rapid heartbeat (palpitations) after taking oral medicines. These symptoms may represent a serious problem that is an emergency. Do not wait to see if the symptoms will go away. Get medical help right away. Call your local emergency services (911 in the [place] Do not drive yourself to the hospital. Summary Erectile dysfunction (ED) is the inability to get or keep an erection during sexual intercourse. This condition is diagnosed based on a physical exam, your symptoms, and tests to determine the cause. Treatment varies depending on the cause and may include medicines, hormone therapy, surgery, or a vacuum pump. You may need follow-up visits to make sure that you are using your medicines or devices correctly. Get help right away if you are taking or injecting medicines and you have an erection that lasts longer than 4 hours. This information is not intended to replace advice given to you by your health care provider. Make sure you discuss any questions you have with your health care provider. Document Revised: 11/04/2021 Document Reviewed: 11/04/2021 [employer] Patient Education 2022 [employer]. Follow Up Care 02/01/2024 11:50:53 With:NEVAEH HARKINS, Javier Jones, URL Address: [address] [place] [phone] When: Unknown Comments:Cystoscopy [facility] 02-21-2024 Evaluation + Plan note Diagnostic Tests PendingTestosterone Level Total 02/21/24 [facility] 02-21-2024 Note Patient Education Urology Hypogonadism, Male Male hypogonadism is a condition of having a level of testosterone that is lower than normal. Testosterone is a chemical, or hormone, that is made mainly in the testicles. In boys, testosterone is responsible for the development of male characteristics during puberty. These include: ? Making the penis bigger. ? Growing and building the muscles. ? Growing facial hair. ? Deepening the voice. In adult men, testosterone is responsible for maintaining: ? An interest in sex and the ability to have sex. ? Muscle mass. ? Sperm production. ? Red blood cell production. ? Bone strength. Testosterone also gives men energy and a sense of well-being. Testosterone normally decreases as men age and the testicles make less testosterone. Testosterone levels can vary from man to man. Not all men will have signs and symptoms of low testosterone. Weight, alcohol use, medicines, and certain medical conditions can affect a man's testosterone level. What are the causes? This condition is caused by: ? A natural decrease in testosterone that occurs as a man grows older. This is the main cause of this condition. ? Use of medicines, such as antidepressants, steroids, and opioids. ? Diseases and conditions that affect the testicles or the making of testosterone. These include: ? Injury or damage to the testicles from trauma, cancer, cancer treatment, or infection. ? Diabetes. ? Sleep apnea. ? Genetic conditions that men are born with. ? Disease of the pituitary gland. This gland is in the brain. It produces hormones. ? Obesity. ? Metabolic syndrome. This is a group of diseases that affect blood pressure, blood sugar, cholesterol, and belly fat. ? HIV or AIDS. ? Alcohol abuse. ? Kidney failure. ? Other long-term or chronic diseases. What are the signs or symptoms? Common symptoms of this condition include: ? Loss of interest in sex (low sex drive). ? Inability to have or maintain an erection (erectile dysfunction). ? Feeling tired (fatigue). ? Mood changes, like irritability or depression. ? Loss of muscle and body hair. ? Infertility. ? Large breasts. ? Weight gain (obesity). How is this diagnosed? Your health care provider can diagnose hypogonadism based on: ? Your signs and symptoms. ? A physical exam to check your testosterone levels. This includes blood tests. Testosterone levels can change throughout the day. Levels are highest in the morning. You may need to have repeat blood tests before getting a diagnosis of hypogonadism. Depending on your medical history and test results, your health care provider may also do other tests to find the cause of low testosterone. How is this treated? This condition is treated with testosterone replacement therapy. Testosterone can be given by: ? Injection or through pellets inserted under the skin. ? Gels or patches placed on the skin or in the mouth. Testosterone therapy is not for everyone. It has risks and side effects. Your health care provider will consider your medical history, your risk for prostate cancer, your age, and your symptoms before putting you on testosterone replacement therapy. Follow these instructions at home: ? Take bess-gvi-wbfbuzo and prescription medicines only as told by your health care provider. ? Eat foods that are high in fiber, such as beans, whole grains, and fresh fruits and vegetables. Limit foods that are high in fat and processed sugars, such as fried or sweet foods. ? If you drink alcohol: ? Limit how much you have to 0?2 drinks a day. ? Know how much alcohol is in your drink. In the [place] one drink equals one 12 oz bottle of beer (355 mL), one 5 oz glass of wine (148 mL), or one 1? oz glass of hard liquor (44 mL). ? Return to your normal activities as told by your health care provider. Ask your health care provider what activities are safe for you. ? Keep all follow-up visits. This is important. Contact a health care provider if: ? You have any of the signs or symptoms of low testosterone. ? You have any side effects from testosterone therapy. Summary ? Male hypogonadism is a condition of having a level of testosterone that is lower than normal. ? The natural drop in testosterone production that occurs with age is the most common cause of this condition. ? Low testosterone can also be caused by many diseases and conditions that affect the testicles and the making of testosterone. ? This condition is treated with testosterone replacement therapy. ? There are risks and side effects of testosterone therapy. Your health care provider will consider your age, medical history, symptoms, and risks for prostate cancer before putting you on testosterone therapy. This information is not intended to replace advice given to you by your health care provider. Make sure you discuss any questions you have with your health care provider. Document Revised: (more content not included)... [facility] 12-05-2023 Hospital Discharge instructions Follow Up Care 12/05/2023 15:08:17 With:NEVAEH HARKINS, Javier Jones, URL Address: [facility] [address] [place] [address] [phone] When: Unknown [facility] 12-05-2023 Hospital Discharge instructions Patient Education 12/05/2023 14:52:01 Erectile Dysfunction Erectile Dysfunction Erectile dysfunction (ED) is the inability to get or keep an erection in order to have sexual intercourse. ED is considered a symptom of an underlying disorder and is not considered a disease. ED may include: Inability to get an erection. Lack of enough hardness of the erection to allow penetration. Loss of erection before sex is finished. What are the causes? This condition may be caused by: Physical causes, such as: ?Artery problems. This may include heart disease, high blood pressure, atherosclerosis, and diabetes. ?Hormonal problems, such as low testosterone. ?Obesity. ?Nerve problems. This may include back or pelvic injuries, multiple sclerosis, Parkinson's disease, spinal cord injury, and stroke. Certain medicines, such as: ?Pain relievers. ?Antidepressants. ?Blood pressure medicines and water pills (diuretics). ?Cancer medicines. ?Antihistamines. ?Muscle relaxants. Lifestyle factors, such as: ?Use of drugs such as marijuana, cocaine, or opioids. ?Excessive use of alcohol. ?Smoking. ?Lack of physical activity or exercise. Psychological causes, such as: ?Anxiety or stress. ?Sadness or depression. ?Exhaustion. ?Fear about sexual performance. ?Guilt. What are the signs or symptoms? Symptoms of this condition include: Inability to get an erection. Lack of enough hardness of the erection to allow penetration. Loss of the erection before sex is finished. Sometimes having normal erections, but with frequent unsatisfactory episodes. Low sexual satisfaction in either partner due to erection problems. A curved penis occurring with erection. The curve may cause pain, or the penis may be too curved to allow for intercourse. Never having nighttime or morning erections. How is this diagnosed? This condition is often diagnosed by: Performing a physical exam to find other diseases or specific problems with the penis. Asking you detailed questions about the problem. Doing tests, such as: ?Blood tests to check for diabetes mellitus or high cholesterol, or to measure hormone levels. ?Other tests to check for underlying health conditions. ?An ultrasound exam to check for scarring. ?A test to check blood flow to the penis. Doing a sleep study at home to measure nighttime erections. How is this treated? This condition may be treated by: Medicines, such as: ?Medicine taken by mouth to help you achieve an erection (oral medicine). ?Hormone replacement therapy to replace low testosterone levels. ?Medicine that is injected into the penis. Your health care provider may instruct you how to give yourself these injections at home. ?Medicine that is delivered with a short applicator tube. The tube is inserted into the opening at the tip of the penis, which is the opening of the urethra. A tiny pellet of medicine is put in the urethra. The pellet dissolves and enhances erectile function. This is also called MUSE (medicated urethral system for erections) therapy. Vacuum pump. This is a pump with a ring on it. The pump and ring are placed on the penis and used to create pressure that helps the penis become erect. Penile implant surgery. In this procedure, you may receive: ?An inflatable implant. This consists of cylinders, a pump, and a reservoir. The cylinders can be inflated with a fluid that helps to create an erection, and they can be deflated after intercourse. ?A semi-rigid implant. This consists of two silicone rubber rods. The rods provide some rigidity. They are also flexible, so the penis can both curve downward in its normal position and become straight for sexual intercourse. Blood vessel surgery to improve blood flow to the penis. During this procedure, a blood vessel from a different part of the body is placed into the penis to allow blood to flow around (bypass) damaged or blocked blood vessels. Lifestyle changes, such as exercising more, losing weight, and quitting smoking. Follow these instructions at home: Medicines Take ofiq-vym-uusphbi and prescription medicines only as told by your health care provider. Do not increase the dosage without first discussing it with your health care provider. If you are using self-injections, do injections as directed by your health care provider. Make sure you avoid any veins that are on the surface of the penis. After giving an injection, apply pressure to the injection site for 5 minutes. Talk to your health care provider about how to prevent headaches while taking ED medicines. These medicines may cause a sudden headache due to the increase in blood flow in your body. General instructions Exercise regularly, as directed by your health care provider. Work with your health care provider to lose weight, if needed. Do not use any products that contain nicotine or tobacco. These products include cigarettes, chewing tobacco, and vaping devices, such as e-cigarettes. If you need help quitting, ask your health care provider. Before using a vacuum pump, read the instructions that come with the pump and discuss any questions with your health care provider. Keep all follow-up visits. This is important. Contact a health care provider if: You feel nauseous. You are vomiting. You get sudden headaches while taking ED medicines. You have any concerns about your sexual health. Get help right away if: You are taking oral or injectable medicines and you have an erection that lasts longer than 4 hours. If your health care provider is unavailable, go to the nearest emergency room for evaluation. An erection that lasts much longer than 4 hours can result in permanent damage to your penis. You have severe pain in your groin or abdomen. You develop redness or severe swelling of your penis. You have redness spreading at your groin or lower abdomen. You are unable to urinate. You experience chest pain or a rapid heartbeat (palpitations) after taking oral medicines. These symptoms may represent a serious problem that is an emergency. Do not wait to see if the symptoms will go away. Get medical help right away. Call your local emergency services (911 in the [place] Do not drive yourself to the hospital. Summary Erectile dysfunction (ED) is the inability to get or keep an erection during sexual intercourse. This condition is diagnosed based on a physical exam, your symptoms, and tests to determine the cause. Treatment varies depending on the cause and may include medicines, hormone therapy, surgery, or a vacuum pump. You may need follow-up visits to make sure that you are using your medicines or devices correctly. Get help right away if you are taking or injecting medicines and you have an erection that lasts longer than 4 hours. This information is not intended to replace advice given to you by your health care provider. Make sure you discuss any questions you have with your health care provider. Document Revised: 11/04/2021 Document Reviewed: 11/04/2021 [employer] Patient Education 2022 [employer]. Follow Up Care 09/27/2023 10:13:00 With:NEVAEH HARKINS, Javier Jones, URL Address: [facility] [address] , [place] [address]- [phone] When: Unknown Comments:f/u for [facility] teaching [facility] 09-29-2023 History of Present illness Narrative Associated Problem(s): Lung nodule Being referred to pulmonogist Associated Problem(s): Pre-diabetes Check labs Associated Problem(s): Mild persistent asthma with exacerbation (CMS/HCC) Does not use rescue inhaler, sxs are controlled with singulair Associated Problem(s): SALVATORE on CPAP Wears PAP at least 8 hours daily Associated Problem(s): Aortic aneurysm without rupture, unspecified portion of aorta (CMS/HCC) Saw vascular people will continue to have this monitored Associated Problem(s): Benign hypertension (CMS/HCC) No changes in dose of meds at this time Images from the original note were not included. Marcel Wahl is a 58 y.o. male presents with chief complaint of No chief complaint on file. HPI: Sleep apnea: wears PAP 8 hours Saw vascular: will monitor aneurysm Incidental findings: nodule , is going to see a risk modeler, hx of 50 pack year smoking, quit 5 years ago Hypertension This is a chronic problem. The current episode started more than 1 year ago. The problem is unchanged. The problem is controlled. Pertinent negatives include no chest pain, peripheral edema or shortness of breath. There are no associated agents to hypertension. Risk factors for coronary artery disease include male gender, obesity and sedentary lifestyle. Past treatments include OSMAR inhibitors and diuretics. The current treatment provides significant improvement. SUBJECTIVE: MEDICATIONS: Current Outpatient Medications Medication Instructions amitriptyline (Elavil) 50 MG tablet 1 tablet, Oral, Nightly busPIRone (BUSPAR) 10 mg, Oral, 2 times daily cyclobenzaprine (Flexeril) 10 MG tablet 1 tablet, Oral, 2 times daily PRN fluticasone (Flonase) 50 MCG/ACT nasal spray 2 sprays, Each Nostril, Daily HYDROcodone-acetaminophen ([place]) 5-325 MG tablet 1 tablet, Oral, Every 12 hours PRN lisinopril-hydroCHLOROthiazide 10-12.5 MG tablet 1 tablet, Oral, Daily montelukast (Singulair) 10 MG tablet 1 tablet, Oral, Daily nabumetone (Relafen) 750 MG tablet 1 tablet, Oral, 2 times daily pregabalin (Lyrica) 50 MG capsule 1 capsule, Oral, 2 times daily sildenafil (Viagra) 50 MG tablet 1 tablet, Oral, As needed tamsulosin (Flomax) 0.4 MG 24 hr capsule 1 capsule, Oral, Daily ALLERGIES: Allergies Allergen Reactions Meperidine Hcl Other Reaction(s): hallucination Morphine Other Reaction(s): hallucination Penicillin G GI intolerance REVIEW OF SYMPTOMS: Review of Systems Constitutional: Negative for activity change, appetite change and unexpected weight change. HENT: Negative for ear pain, nosebleeds, sneezing, trouble swallowing and voice change. Eyes: Negative for pain, discharge and visual disturbance. Respiratory: Negative for apnea, chest tightness, shortness of breath and wheezing. Cardiovascular: Negative for chest pain and leg swelling. Gastrointestinal: Negative for abdominal distention, blood in stool, constipation and diarrhea. Genitourinary: Negative for decreased urine volume, difficulty urinating, dysuria and hematuria. Musculoskeletal: Positive for back pain and gait problem. Skin: Negative for color change. Neurological: Negative for dizziness, tremors and seizures. Psychiatric/Behavioral: Negative for agitation, decreased concentration, hallucinations, self-injury and suicidal ideas. The patient is not nervous/anxious. Hematological: Negative for adenopathy. Does not bruise/bleed easily. Endocrine: Negative for cold intolerance, heat intolerance, polydipsia and polyuria. Allergic/Immunologic: Negative for environmental allergies and food allergies. PAST MEDICAL HISTORY Past Medical History: Diagnosis Date Aortic aneurysm without rupture, unspecified portion of aorta ([facility]) 09/28/2023 Benign hypertension ([facility]) 09/28/2023 BPH associated with nocturia 09/28/2023 COVID-19 virus infection Diverticulitis DJD of right shoulder Erectile dysfunction of organic origin SCOT (generalized anxiety disorder) ([facility]) 08/18/2023 High cholesterol ([facility]) 09/28/2023 Insomnia Mild persistent [place] with [place] 09/28/2023 Controlled with singulair. Does not need rescue inhaler Morbid obesity with body mass index (BMI) of 40.0 to 44.9 in adult ([facility]) 09/28/2023 SALVATORE on CPAP 09/28/2023 Osteoarthritis 09/28/2023 Pain, joint, shoulder, right started earlier this morning.RTshoulder replacement in December and RTW in March.Concerned about possible hardware failure so he came to our office for it. Pain is gone now.Pt very nervous & anxious about his rt shoulder & was tearful when my MA took him inside for appt.When I saw him,he was much calm.On my exam; I did not appreciate any restriction in ROM on rit side & his drop arm test was also neg. 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 Slightly tender with lifting, but not too bthersome. Reducible, no nausea. Past Surgical History: Procedure Laterality Date ACHILLES TENDON SURGERY 2006 COLECTOMY 2008 Procedure:sigmoid colon resection;Disease:intestinal dz COLONOSCOPY 11/03/2016 Dr Amaro No polyps/scarring from diverticulitis. Has abdominal hernias KNEE SURGERY Right arthroscopy TESTICLE SURGERY Procedure:Testicular hydrocele 2012 TONGUE SURGERY 02/2013 removal of tongue lesion family history includes Colon cancer in his paternal grandfather; Diabetes in his paternal grandmother; Heart disease in his father; Hypertension in his father. OBJECTIVE: Visit Vitals BP 138/88 (BP Location: Left arm, Patient Position: Sitting, BP Cuff Size: Large adult long) Pulse 91 Temp 98.2 F (Temporal) Resp 19 Ht 5' 10 Wt 315 lb 12.8 oz SpO2 98% BMI 45.31 kg/m Smoking Status Former BSA 2.66 m Physical Exam Vitals reviewed. Constitutional: Appearance: Normal appearance. HENT: Head: Normocephalic. Right Ear: Tympanic membrane, ear canal and external ear normal. Left Ear: Tympanic membrane, ear canal and external ear normal. Nose: Nose normal. No congestion. Mouth/Throat: Mouth: Mucous membranes are moist. Pharynx: Oropharynx is clear. Eyes: Extraocular Movements: Extraocular movements intact. Conjunctiva/sclera: Conjunctivae normal. Neck: Vascular: No carotid bruit. Cardiovascular: Rate and Rhythm: Normal rate and regular rhythm. Pulses: Normal pulses. Heart sounds: Normal heart sounds. Pulmonary: Effort: Pulmonary effort is normal. Breath sounds: Normal breath sounds. Abdominal: General: Bowel sounds are normal. Palpations: Abdomen is soft. Comments: obese Musculoskeletal: Cervical back: Neck supple. Right lower leg: No edema. Left lower leg: No edema. Skin: General: Skin is warm and dry. Capillary Refill: Capillary refill takes 2 to 3 seconds. Neurological: General: No focal deficit present. Mental Status: He is alert. Psychiatric: Mood and Affect: Mood normal. Behavior: Behavior normal. Thought Content: Thought content normal. Judgment: Judgment normal. ASSESSMENT AND PLAN: No follow-ups on file. Problem List Items Addressed This Visit SCOT (generalized anxiety disorder) (CMS/HCC) SALVATORE on CPAP Wears PAP at least 8 hours daily Mild persistent asthma with exacerbation (CMS/HCC) Does not use rescue inhaler, sxs are controlled with singulair Benign hypertension (CMS/HCC) - Primary No changes in dose of meds at this time Relevant Orders CBC and differential Microalbumin / creatinine, urine ratio Urinalysis with reflex microscopic (clean catch) Aortic aneurysm without rupture, unspecified portion of aorta (CMS/HCC) Saw vascular people will continue to have this monitored High cholesterol (CMS/HCC) Relevant Orders Lipid panel Screening for prostate cancer Relevant Orders PSA Pre-diabetes Check labs Relevant Orders Comprehensive metabolic panel Hemoglobin A1c Microalbumin / creatinine, urine ratio Urinalysis with reflex microscopic (clean catch) Lung nodule Being referred to pulmonogist Other Visit Diagnoses Morbid (severe) obesity due to excess calories (E66.01) Body mass index [BMI] 45.0-49.9, adult (Z68.42) documented in this encounter [facility] 05-04-2023 Miscellaneous Notes I have called and discussed with Marcel Brown recommendations which are there is no indication for surgery. 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 Also, blood pressure control is essential to keep aorta size stable. He verbalized understanding Oksana Spear RN diagnosis: aorta 4.1 cm on echo history: obesity, chronic back pain, anxiety, asthma, HTN, SALVATORE, Patient has been communicating via Dr. Shaikh Liang's office. Roselia nurse [phone] Diagnosis: aneurysm All records are in Epic Left a VM. Need: explain the process and let patient know that I am in contact with his Dr's office trying to get all his records. Currently waiting for CT images. documented in this encounter [facility] 03-28-2023 Hospital Discharge instructions Patient Education 03/28/2023 12:16:23 Erectile Dysfunction Erectile Dysfunction Erectile dysfunction (ED) is the inability to get or keep an erection in order to have sexual intercourse. ED is considered a symptom of an underlying disorder and is not considered a disease. ED may include: Inability to get an erection. Lack of enough hardness of the erection to allow penetration. Loss of erection before sex is finished. What are the causes? This condition may be caused by: Physical causes, such as: ?Artery problems. This may include heart disease, high blood pressure, atherosclerosis, and diabetes. ?Hormonal problems, such as low testosterone. ?Obesity. ?Nerve problems. This may include back or pelvic injuries, multiple sclerosis, Parkinson's disease, spinal cord injury, and stroke. Certain medicines, such as: ?Pain relievers. ?Antidepressants. ?Blood pressure medicines and water pills (diuretics). ?Cancer medicines. ?Antihistamines. ?Muscle relaxants. Lifestyle factors, such as: ?Use of drugs such as marijuana, cocaine, or opioids. ?Excessive use of alcohol. ?Smoking. ?Lack of physical activity or exercise. Psychological causes, such as: ?Anxiety or stress. ?Sadness or depression. ?Exhaustion. ?Fear about sexual performance. ?Guilt. What are the signs or symptoms? Symptoms of this condition include: Inability to get an erection. Lack of enough hardness of the erection to allow penetration. Loss of the erection before sex is finished. Sometimes having normal erections, but with frequent unsatisfactory episodes. Low sexual satisfaction in either partner due to erection problems. A curved penis occurring with erection. The curve may cause pain, or the penis may be too curved to allow for intercourse. Never having nighttime or morning erections. How is this diagnosed? This condition is often diagnosed by: Performing a physical exam to find other diseases or specific problems with the penis. Asking you detailed questions about the problem. Doing tests, such as: ?Blood tests to check for diabetes mellitus or high cholesterol, or to measure hormone levels. ?Other tests to check for underlying health conditions. ?An ultrasound exam to check for scarring. ?A test to check blood flow to the penis. Doing a sleep study at home to measure nighttime erections. How is this treated? This condition may be treated by: Medicines, such as: ?Medicine taken by mouth to help you achieve an erection (oral medicine). ?Hormone replacement therapy to replace low testosterone levels. ?Medicine that is injected into the penis. Your health care provider may instruct you how to give yourself these injections at home. ?Medicine that is delivered with a short applicator tube. The tube is inserted into the opening at the tip of the penis, which is the opening of the urethra. A tiny pellet of medicine is put in the urethra. The pellet dissolves and enhances erectile function. This is also called MUSE (medicated urethral system for erections) therapy. Vacuum pump. This is a pump with a ring on it. The pump and ring are placed on the penis and used to create pressure that helps the penis become erect. Penile implant surgery. In this procedure, you may receive: ?An inflatable implant. This consists of cylinders, a pump, and a reservoir. The cylinders can be inflated with a fluid that helps to create an erection, and they can be deflated after intercourse. ?A semi-rigid implant. This consists of two silicone rubber rods. The rods provide some rigidity. They are also flexible, so the penis can both curve downward in its normal position and become straight for sexual intercourse. Blood vessel surgery to improve blood flow to the penis. During this procedure, a blood vessel from a different part of the body is placed into the penis to allow blood to flow around (bypass) damaged or blocked blood vessels. Lifestyle changes, such as exercising more, losing weight, and quitting smoking. Follow these instructions at home: Medicines Take xvcm-cbs-aeldnau and prescription medicines only as told by your health care provider. Do not increase the dosage without first discussing it with your health care provider. If you are using self-injections, do injections as directed by your health care provider. Make sure you avoid any veins that are on the surface of the penis. After giving an injection, apply pressure to the injection site for 5 minutes. Talk to your health care provider about how to prevent headaches while taking ED medicines. These medicines may cause a sudden headache due to the increase in blood flow in your body. General instructions Exercise regularly, as directed by your health care provider. Work with your health care provider to lose weight, if needed. Do not use any products that contain nicotine or tobacco. These products include cigarettes, chewing tobacco, and vaping devices, such as e-cigarettes. If you need help quitting, ask your health care provider. Before using a vacuum pump, read the instructions that come with the pump and discuss any questions with your health care provider. Keep all follow-up visits. This is important. Contact a health care provider if: You feel nauseous. You are vomiting. You get sudden headaches while taking ED medicines. You have any concerns about your sexual health. Get help right away if: You are taking oral or injectable medicines and you have an erection that lasts longer than 4 hours. If your health care provider is unavailable, go to the nearest emergency room for evaluation. An erection that lasts much longer than 4 hours can result in permanent damage to your penis. You have severe pain in your groin or abdomen. You develop redness or severe swelling of your penis. You have redness spreading at your groin or lower abdomen. You are unable to urinate. You experience chest pain or a rapid heartbeat (palpitations) after taking oral medicines. These symptoms may represent a serious problem that is an emergency. Do not wait to see if the symptoms will go away. Get medical help right away. Call your local emergency services (911 in the [place] Do not drive yourself to the hospital. Summary Erectile dysfunction (ED) is the inability to get or keep an erection during sexual intercourse. This condition is diagnosed based on a physical exam, your symptoms, and tests to determine the cause. Treatment varies depending on the cause and may include medicines, hormone therapy, surgery, or a vacuum pump. You may need follow-up visits to make sure that you are using your medicines or devices correctly. Get help right away if you are taking or injecting medicines and you have an erection that lasts longer than 4 hours. This information is not intended to replace advice given to you by your health care provider. Make sure you discuss any questions you have with your health care provider. Document Revised: 11/04/2021 Document Reviewed: 11/04/2021 [employer] Patient Education 2022 [employer]. Follow Up Care 03/07/2023 10:38:37 With:NEVAEH HARKINS, Javier Jones, URL Address: [facility] [address] , [place] [address]- [phone] When:Within 6 Month(s) Comments:T lynda [facility] Note Chief Complaint Patient is being seen for a back consultation. History of Present Illness Patient is a pleasant 57-year-old male with a history of glucose intolerance, asthma, hypertension, obstructive sleep apnea, chronic nicotine abuse (nicotine lozenges), and morbid obesity (BMI 46), who presents to the outpatient neurosurgical clinic today accompanied by his , as a new patient, at the request of his treating primary care provider, Shavonne Chowdary CNP, for consultation on behalf of complaints of recent exacerbation in axial lumbar pain with associated pain throughout the right gluteal region and proximal right lower extremity. Patient reports he has struggled chronically for greater than 10 years with components of axial lumbar pain. He notes significant exacerbation in axial lumbar pain approximately 3 months ago without precipitating injury. Patient states that his pain syndrome initially progressively worsened, however he notes rather significant recent improvement with conservative management including injection modalities through pain management. At onset, patient describes exacerbated midline and right greater than left lumbosacral pain accompanied by right superior lateral gluteal pain radiating into the right proximal thigh involving both the anterior and posterior aspect. He also notes intermittent numbness/paresthesias involving the posterior aspect of the right lower extremity. With recent bilateral L4-5 and L5-S1 RFA's performed approximately 10 days ago, patient reports a greater than 90% improvement in his axial lumbar pain such that he now notes milder amounts of axial lumbar pain, but continues to have right gluteal pain and quasi radicular symptoms into the right lower extremity. Patient states his axial lumbar pain is worse when seated and that his right gluteal pain/right lower extremity pain is worse with standing/walking. Patient denies left gluteal pain or left lower extremity radicular pain. He denies numbness or paresthesias in the left lower extremity. Patient denies motor weakness in the lower extremities, bowel/bladder incontinence, or saddle paresthesias. Patient currently denies significant cervical or thoracic pain. He denies radicular pain into the upper extremities or chest wall/thorax. Patient denies numbness or paresthesias in the upper extremities or chest wall/thorax. He denies motor weakness in the upper extremities, decreased dexterity, or chronic gait imbalance. Patient states his pain was initially refractory to a course of physical therapy performed spring 2022. In addition, he has initiated oral NSAIDs and Lyrica with some benefit. Most recently, patient underwent bilateral L4-5 and L5-S1 RFA's 03/04/2023 following which he reports the above noted 90% improvement in axial lumbar pain, but no significant benefit in his right gluteal pain or right lower extremity symptoms. Patient currently rates his pain at 4/10 on a standard pain scale. He states symptoms do not currently interrupt sleep or function. He states he has been able to return turn to his normal life activities without significant difficulty. Patient states he can ambulate greater than 1/2 mile. PAST MEDICAL HISTORY: Hypertension BPH Anxiety Depression Morbid obesity Obstructive sleep apnea Asthma Glucose intolerance PAST SURGICAL HISTORY: Partial colectomy secondary to diverticulosis Hydrocele repair Right foot reconstruction Right knee arthroscopy Right total shoulder arthroplasty ALLERGIES: Demerol: Hallucinations Morphine: Hallucinations Penicillin: GI upset MEDICATIONS: See medication list SOCIAL HISTORY: Patient is . He has 3 grown children. He lives independently in [place]. Patient reports daily nicotine use via nicotine lozenges. He also reports daily recreational marijuana use. Patient otherwise denies recreational drugs and denies alcohol. 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 He states no [place] of Workmen's Compensation or third-republican insurance claims based on today's office visit. FAMILY HISTORY: Noncontributory Review of Systems Constitutional: [No fevers, chills, sweats] Eye: [No recent visual problems] ENT: [No ear pain, sore throat, nasal congestion] Respiratory: [No shortness of breath, cough] Vascular: [No edema, erythema, discoloration] Cardiovascular: [No Chest pain, palpitations, syncope] Neuro: [No headaches, dizziness] Gastrointestinal: [No nausea, vomiting, diarrhea] Genitourinary: [No hematuria] Endocrine: [no polydipsia, polyphagia] Hematology: [no easy bruising, no bleeding tendencies] Physical Exam Vitals & Measurements HR: 85 (Peripheral) BP: 116/68 SpO2: 97 HT: 178 cm WT: 147.2 kg WT: 147.2 kg (Dosing) BMI: 46.46 Additional Vitals BP Position/Location: Sitting, Left arm GENERAL PHYSICAL EXAM: GENERAL: well developed, well nourished, no distress HEAD: normocephalic, atraumatic EYES: anicteric, atraumatic MUCOUS MEMBRANES: Moist, no ev (more content not included)... [facility] 03-07-2023 Hospital Discharge instructions Patient Education 03/07/2023 10:28:28 Renal Mass Renal Mass A renal mass is an abnormal growth in the kidney. It may be found while performing an MRI, CT scan, or ultrasound to evaluate other problems of the abdomen. A renal mass that is cancerous (malignant) may grow or spread quickly. Others are not cancerous (benign). Renal masses include: Tumors. These may be malignant or benign. ?The most common type of kidney cancer in adults is renal cell carcinoma. In children, the most common type of kidney cancer is Wilms tumor. ?The most common benign tumors of the kidney include renal adenomas, oncocytomas, and angiomyolipoma (AML). Cysts. These are fluid-filled sacs that form on or in the kidney. What are the causes? Certain types of cancers, infections, or injuries can cause a renal mass. It is not always known what causes a cyst to develop in or on the kidney. What are the signs or symptoms? Often, a renal mass does not cause any signs or symptoms; most kidney cysts do not cause symptoms. How is this diagnosed? Your health care provider may recommend tests to diagnose the cause of your renal mass. These tests may be done if a renal mass is found: Physical exam. Blood tests. Urine tests. Imaging tests, such as ultrasound, CT scan, or MRI. Biopsy. This is a small sample that is removed from the renal mass and tested in a lab. The exact tests and how often they are done will depend on: The size and appearance of the renal mass. Risk factors or medical conditions that increase your risk for problems. Any symptoms associated with the renal mass, or concerns that you have about it. Tests and physical exams may be done once, or they may be done regularly for a period of time. Tests and exams that are done regularly will help monitor whether the mass is growing and beginning to cause problems. How is this treated? Treatment is not always needed for this condition. Your health care provider may recommend careful monitoring and regular tests and exams. Treatment will depend on the cause of the mass. Treatment for a cancerous renal mass may include surgical removal, chemotherapy, radiation, or immunotherapy. Most kidney cysts do not need to be treated. Follow these instructions at home: What you need to do at home will depend on the cause of the mass. Follow the instructions that your health care provider gives to you. In general: Take msqc-mcd-irsaten and prescription medicines only as told by your health care provider. If you were prescribed an antibiotic medicine, take it as told by your health care provider. Do not stop taking the antibiotic even if you start to feel better. Follow any restrictions that are given to you by your health care provider. Keep all follow-up visits. This is important. ?You may need to see your health care provider once or twice a year to have CT scans and ultrasounds. These tests will show if your renal mass has changed or grown. Contact a health care provider if you: Have pain in your side or back (flank pain). Have a fever. Feel full soon after eating. Have pain or swelling in the abdomen. Lose weight. Get help right away if: Your pain gets worse. There is blood in your urine. You cannot urinate. You have chest pain. You have trouble breathing. These symptoms may represent a serious problem that is an emergency. Do not wait to see if the symptoms will go away. Get medical help right away. Call your local emergency services (911 in the [place] Summary A renal mass is an abnormal growth in the kidney. It may be cancerous (malignant) and grow or spread quickly, or it may not be cancerous (benign). Renal masses often do not have any signs or symptoms. Renal masses may be found while performing an MRI, CT scan, or ultrasound for other problems of the abdomen. Your health care provider may recommend that you have tests to diagnose the cause of your renal mass. These may include a physical exam, blood tests, urine tests, imaging, or a biopsy. Treatment is not always needed for this condition. Careful monitoring may be recommended. This information is not intended to replace advice given to you by your health care provider. Make sure you discuss any questions you have with your health care provider. Document Revised: 02/02/2021 Document Reviewed: 02/02/2021 [employer] Patient Education 2022 [employer]. Follow Up Care 02/18/2023 09:13:02 With:NEVAEH HARKINS, Javier Jones, URL Address: [facility] [address] , [place] [address]- [phone] When: Unknown Comments:CT scan and PSA [facility] 03-07-2023 Note Chief Complaint Referral * Complex Renal Cyst HPI Staff Evaluation requested by Shavonne Chowdary due to Lt Renal Complex Cyst. Pt is a new pt. States he was seen in our office several yrs ago due to hydrocele. *Viagra 50mg PRN by PCP SUJIT 02/16/23 Pt has Hx of chronic back pain. MRI was ordered. Cysts were noticed so SUJIT was ordered. Per pt's , they have known about the cysts for yrs. Has gotten bigger over time. Denies visible blood in urine. Denies flank pain. Occasional frequency. q2hrs. Increased Urgency. Denies loss of bladder control. Denies any complaints with urinary stream. Wakes up at least 3x/night to void. Denies HX of Bladder/Prostate Meds in the past. IPSS 13 QOL 3 History of Present Illness Tests reviewed: reviewed UA, referral records I have reviewed the previous health record information and history for this patient from external providers_. I have reviewed and verified the staff HPI to be accurate for this encounter. There have been no associated fever, chills, flank pain, or blood in the urine. Denies any urinary infections since last encounter. Review of Systems PHQ Score Initial Depression Screen Score: 0 ROS - Provider Constitutional: denies weight loss, denies hot flashes. Eyes: denies eye problems. Gastrointestinal: denies nausea, denies vomiting. Cardiovascular: denies chest pain or angina. Integumentary: no dryness Musculoskeletal: denies musculoskeletal symptoms. ENMT: denies otolaryngeal symptoms. Respiratory: no shortness of breath. Heme/Lymph: denies easy bleeding tendency, denies easy bruising tendency. Psychiatric: no confusion, no anxiety. Genitourinary: See HPI. Physical Exam Vitals & Measurements HT: 70 in HT: 178 cm WT: 143 kg WT: 314.6 lb BMI: 45.13 General Appearance: alert, no distress, well nourished, well developed male. Head: normocephalic . Eyes: normal orbit and globe. ENMT: normal examination of external ears. Chest: Lungs CTA, respirations non labored. Cardiovascular: regular rate and rhythm. Abdomen: soft, non distended, no tenderness, no mass or organomegaly, no hernia. Genitourinary: normal scrotum, normal testes, normal urethra, normal epididymis, normal vas deferens/spermatic cord. Flank Pain: none. Bladder: nonpalpable. Penis: normal shaft, normal glans. Lymph Nodes: unremarkable palpation of the cervical area. Skin: warm, dry, no bruising. Psychiatric: cooperative, affect appropriate for age, normal judgement, euthymic mood. Assessment/Plan 1. Complex renal cyst (N28.1: Cyst of kidney, acquired) Pt reports he had an MRI done for back pain where renal cysts were found. Renal US 02/16/23 - slightly complex cyst in left kidney measuring 3.6 x 3.7 x 3.5 cm. Will have pt get CT AP w/ contrast. Explained to pt results are likely not to be of large concern. Discussed monitoring options for the future. All questions/concerns were discussed. Pt to call the office if he encounters any issues prior. Pt acknowledges understanding. 2. BPH associated with nocturia (N40.1: Benign prostatic hyperplasia with lower urinary tract symptoms) IPSS 13, QoL 3. UA today negative for blood and infection. Nocturia 2-3x, does have sleep apnea and uses a mask. Admits he has a short stream but feels empty after voiding. Pt states this is not bothersome at this time. Pt states he has not had his PSA checked by PCP in about 4 years. Will have pt get PSA at time of CT scan. 3. Erectile dysfunction (N52.9: Male erectile dysfunction, unspecified) Pt is currently taking Sildenafil 50mg PRN per PCP. Follow-up With When Contact Information NEVAEH HARKINS, Javier Jones, URL [facility] [address], [place] [address]- [phone] Additional Instructions: CT scan and PSA Patient Education Renal Mass I, Shira Limon, personally scribed for Dr. Downs on 03/07/2023 10:37:36. . Documentation recorded by the scribe, Shira Limon, accurately reflects the services(s) I performed and decisions made by me. Authenticated by Dr. Downs on 03/07/2023 10:39:04. Problem List/Past Medical History Ongoing BPH associated with nocturia Chronic back pain Complex renal cyst Erectile disorder Erectile dysfunction Hypertension Sleep disorder Historical No qualifying data Procedure/Surgical History Hydrocelectomy, Knee, Large bowel resection, Shoulder. Medications amitriptyline 50 mg Tab cyclobenzaprine 10 mg Tab, 10 mg= 1 tab(s), Oral, TID, PRN fluticasone Nasal 0.05 mg/inh [place] hydrochlorothiazide-lisinopril 12.5 mg-10 mg Tab montelukast 10 mg Tab nabumetone 750 mg Tab pregabalin 25 mg Cap sildenafil 50 mg Tab Allergies Demerol (Hallucinations) morphine (Hallucinations) penicillin (Nausea and vomiting) Social History Tobacco Former smoker, quit more than 30 days ago Tobacco Use:. Never Smokeless Tobacco Use:. Cigarettes, Household tobacco concerns: No (more content not included)... [facility] Comment on above: Result Comment: Elec tronically Signed By: Javier DOWNS MD\.br\Date and Time Signed: 03/07/23 10:39 EDT\.br\Electronically Co-Signed By: Shira Limon\.br\Date and Time Co-Signed: 03/07/23 10:37 EDT 01-13-2023 Note PROCEDURE: XR HIP RT 2 3V WO PELVIS HISTORY: Pain in right hip joint ; no known injury COMPARISON: None. FINDINGS: BONES:No fracture, acute abnormality, or significant arthropathy. SOFT TISSUES:No visible soft tissue swelling. EFFUSION:None visible. OTHER: Negative. IMPRESSION: 1. No acute bone abnormality or significant degenerative joint disease. Electronically authenticated by: LISSETTE MCCAIN Date: 2023-01-13 10:45 [facility] 01-03-2023 Evaluation note Encounter Date Diagnosis Assessment Notes December, Strain of lumbar region, initial encounter (ICD-10 - S39.012A) Drink plenty fluids, get plenty of rest. Continue home medications as prescribed including the cyclobenzaprin e. Take the prednisone as prescribed until gone. Follow-up with your family physician if no improvement in 4 to 5 days. Go to the ER for worsening symptoms or concerns December, Right sided sciatica (ICD-10 - M54.31) Back pain with sciatica home care material was printed [employer] Other 12-07-2022 NotePROCEDURE: XR SHOULDER RT 2V or > HISTORY: Pain of right shoulder joint , acute; no known injury COMPARISON: XR shoulder right 11/17/2021 FINDINGS: BONES:Total right shoulder replacement without appreciable hardware fracture or loosening. No bone fracture dislocation. Large degenerative osteophyte projecting inferiorly from distal end of clavicle. No significant narrowing of the acromioclavicular joint space. SOFT TISSUES:No visible soft tissue swelling. EFFUSION:None visible. OTHER: Negative. IMPRESSION: 1. Right shoulder replacement without appreciable hardware failure. 2. No acute bone abnormality. 3. Degenerative osteophyte along the undersurface of distal clavicle which would predispose to rotator cuff injury. Electronically authenticated by: LISSETTE MCCAIN Date: 2022-07-28 13:47[facility]11-15-2022 NotePROCEDURE: XR ANKLE LT MIN 3 V, XR FOOT LT MIN 3 VIEWS COMPARISON: None. HISTORY: Arthralgia of the ankle and/or foot FINDINGS: BONES:No acute fracture or dislocation. Flattening of the plantar arch. Mild plantar enthesopathic spurring of the calcaneus. Mild degenerative changes. SOFT TISSUES:Negative. No visible soft tissue swelling. EFFUSION:None visible. OTHER: Negative. IMPRESSION: Mild degenerative changes of the foot and ankle Pes planus Electronically authenticated by: DARIN CHAPA Date: 2022-07-06 07:39[facility]11-15-2022 NotePROCEDURE: XR ANKLE LT MIN 3 V, XR FOOT LT MIN 3 VIEWS COMPARISON: None. HISTORY: Arthralgia of the ankle and/or foot FINDINGS: BONES:No acute fracture or dislocation. Flattening of the plantar arch. Mild plantar enthesopathic spurring of the calcaneus. Mild degenerative changes. SOFT TISSUES:Negative. No visible soft tissue swelling. EFFUSION:None visible. OTHER: Negative. IMPRESSION: Mild degenerative changes of the foot and ankle Pes planus Electronically authenticated by: DARIN CHAPA Date: 2022-07-06 07:39[facility] [facility] Miscellaneous Notes* Telephone Encounter - Coco Steinberg RN - 08/28/2014 4:26 PM EST Noted. Thanks. Coco Steinberg RN ONC * Telephone Encounter - Shavonne Jaeger - 08/28/2014 3:55 PM EST Patient's , Orquidea, called back stating the following: She will relay the message below to her and will call back if he wants to cancel and reschedule his appointment. Orquidea stated to leave appointment scheduled on 09/02/[address] Pruitt until she talks to her . Patient will have a form for Dr. Pruitt to fill out so he can return to work. Orquidea was given the fax number and instructions to request this form to be filled out by Dr. Pruitt. She will give this information to her . You may contact Orquidea at their home # [phone] with questions/concerns, OK to leave a message at their home number. * Telephone Encounter - Nirali Merida MA - 08/28/2014 3:12 PM EST Called patient back and left a message with his daughter. Please advise: If patient is doing well he can follow up in the office on 09/16. If he needs a note to return to work, I will be happy to takecare of that for him since he is returning before his follow up appointment. Knee scopes usually follow up 6 weeks after surgery so the 09/16 appointment would put him close to that time frame. NIRALI MERIDA MA * Telephone Encounter - Eunice Mckinney - 08/28/2014 2:44 PM EST Patient's called to reschedule patients 09/02/[address] Pruitt. However, the next available is not until 09/16/14 and patient is to return to work on 09/13/14. Patient may be reached at [phone] to advise, it is ok to leave a message if no answer. documented in [facility] + [facility] note Future Appointments Appointment Date:03/28/2023 11:15:00 AM Scheduled Provider:Javier DOWNS MD Location:[facility] [place] Appointment Type:URO Office Visit Diagnostic Tests Pending * PSA Total 03/07/23 [facility] evaluation + Plan note Future Appointments Appointment Date:09/26/2023 09:15:00 AM Scheduled Provider:Javier DOWNS MD Location:[facility] Appointment Type:URO Office Visit Diagnostic Tests Pending * Testosterone Level Total 03/28/23 [facility] evaluation + Plan note Future Appointments Appointment Date:01/23/2024 11:30:00 AM Scheduled Provider:Javier DOWNS MD Location:[facility] Appointment Type:URO Office Visit [facility] evaluation note* Diagnosis Benign hypertension (CMS/HCC)- Primary Essential hypertension, benign Morbid (severe) obesity due to excess calories (E66.01) Body mass index [BMI] 45.0-49.9, adult (Z68.42) Aortic aneurysm without rupture, unspecified portion of aorta (CMS/HCC) High cholesterol (CMS/HCC) Pure hypercholesterolemia SCOT (generalized anxiety disorder) (CMS/HCC) Generalized anxiety disorder Screening for prostate cancer Special screening for malignant neoplasm of prostate Pre-diabetes Other abnormal glucose [place] on CPAP Mild persistent asthma with exacerbation (CMS/HCC) Unspecified asthma, with exacerbation Lung nodule Other diseases of lung, not elsewhere classified documented in this encounter [facility] N[facility]ative - Reported* Type Description Date Medical History Osteoarthritis Medical History cervical radiculopathy Medical History diverticulitis Medical History plantar fasciitis Medical History Sleep apnea, unspecified Medical History left side of head injury Medical History Unspecified abdomina l hernia without obstruction or gangrene Medical History allergic rhinitis Medical History COPD Surgical History ankle surgery 2009 Surgical History Procedure:removal of tongue les ion ;Disease: Surgical History colon resection Surgical History Procedure:Testicular hydrocele 2012;Disease: Surgical History hydrocele repair Surgical History Procedure:Achilles tendon repai r;Disease: 2006 Surgical History knee arthroscopy Surgical History Procedure:sigmoid co rio resection;Disease:intestinal dz 2008 Surgical History R knee arthroscopy Surgical History rt knee surgery Surgical History right shoulder replacement 12/21 022 Hospitalization History see above Hospitalization History diverticulitis [employer] Other Hospital course Narrative No data available for this section [facility] progress note No data available for this section [facility] Discharge Instructions * Attachments The following attachments cannot be sent through Care Everywhere. 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 Pt states he was just d/c from [facility] and they told him basically that I was fat and lazy Reason Onset Date Comments Surgical Followup 08/28/2014 Reason Comments Referral Information (unrecognized sect ion and content) No Status Records FoundNo Status Records FoundNo Status Records FoundNo Status Records FoundNo Status Records FoundNo Status Records Found INFORMATION SOURCE (unrecogn ized section and content) DATE CREATED AUTHOR 03/11/2020 [facility] DATE CREATED AUTHOR AUTHOR'S ORGANIZ ATION 01/28/2023 [facility] DATE CREATED AUTHOR AUTHOR'S ORGANIZ ATION 05/08/2023 [facility] DATE CREATED AUTHOR AUTHOR'S ORGANIZ ATION 09/16/2023 [facility] DATE CREATED AUTHOR AUTHOR'S ORGANIZ ATION 02/22/2024 [facility] DATE CREATED AUTHOR AUTHOR'S ORGANIZ ATION 02/22/[address] [facility] EPIC Source Comments (unrecognize d section and content) In the event this informatio n is protected by the Federal Confidentiality of Alcohol and Drug Abuse Patient Records regulations: The Federal rules restrict any use of the information to criminally investigate or prosecute any alcohol or drug abuse patient.[facility] HospitalIn the event this information is protected by the Federal Confidentiality of Alcohol and Drug Abuse Patient Records regulations: The Federal rules restrict any use of the information to criminally investigate or prosecute any alcohol or drug abuse patient.[facility] Patient Care team informatio n (unrecognized section and content) Boiler Tester Relationship Specialty Start Date End Date Rom Faye Jr. PCP - General 02/23/05 Rafael Brown MD [address] [place] [address] Surgeon Cardiac Surg 05/04/23 05/05/23 Boiler Tester Relationship Specialty Start Date End Date Parth Hdz MD PCP - General Family Medicine 02/17/23 Boiler Tester Relationship Specialty Start Date End Date Parth Hdz MD PCP - General Family Medicine 02/17/23 FOR RECORDS PERTAINING TO PATIENTS WHO ARE OR HAVE BEEN ENROLLED IN A CHEMICAL DEPENDENCY/SUBSTANCEABUSE PROGRAM, SOME INFORMATION MAY BE OMITTED. This clinical summary was aggregated from multiple sources. Caution should be exercised in using it in the provision of clinical care. This summary normalizes information from multiple sources, and as a consequence, information in this document may materially change the coding, format and clinical context of patient data. In addition, data may be omitted in some cases. CLINICAL DECISIONS SHOULD BE BASED ON THE PRIMARY CLINICAL RECORDS. [facility]. provides no warranty or guarantee of the accuracy or completeness of information in this document.
[2024-04-13 04:08] LABS: Testosterone 266 ng/dL (264-916)
== END 2024-04-12 09:55 | disposition home or self-care (01) ==
LOC: LAB 09:57
PROVIDERS: PCP Nurse Practitioner; Visit Provider Nurse Practitioner
DX: E29.1 Testicular hypofunction (principal)
CPT/HCPCS: 36415; 84403

== ENCOUNTER 2024-06-20 10:09 | Outpatient (OUT) | payer BC, SELFPAY ==
--- OUTSIDE RECORDS SUMMARY | 2024-06-20 10:20 | XMS_ITS | CCD ---
Author Organization [facility] Care Team Providers Care Telephone Maintainer Name Role Phone Es Love Primary Care Provider [phone] JOSHUA PEREZ Attending Unavailable ES LOVE Primary Care Unavailable Rom Faye Jr. Primary Care Provider Carrie Campos Unavailable AICHHOLZ, SUPERVISOR CAR INSTALLATIONS SHAVONNE Consulting Unavailable AICHHOLZ, SUPERVISOR CAR INSTALLATIONS SHAVONNE Primary Care Unavailable AICHHOLZ, SUPERVISOR CAR INSTALLATIONS SHAVONNE Admitting Unavailable AICHHOLZ, SUPERVISOR CAR INSTALLATIONS SHAVONNE Attending Unavailable AICHHOLZ, SUPERVISOR CAR INSTALLATIONS SHAVONNE Primary Care Unavailable MISC, DR MARIE Consulting Unavailable MISC, DR MARIE Admitting Unavailable MISC, DR MARIE Attending Unavailable AICHHOLZ, SUPERVISOR CAR INSTALLATIONS SHAVONNE Referring Unavailable AICHHOLZ, SUPERVISOR CAR INSTALLATIONS SHAVONNE Primary Care Unavailable MISC, DR MARIE Consulting Unavailable MISC, DR MARIE Admitting Unavailable MISC, DR MARIE Attending Unavailable AICHHOLZ, SUPERVISOR CAR INSTALLATIONS SHAVONNE Attending Unavailable AICHHOLZ, SUPERVISOR CAR INSTALLATIONS SHAVONNE Consulting Unavailable AICHHOLZ, SUPERVISOR CAR INSTALLATIONS SHAVONNE Primary Care Unavailable AICHHOLZ, SUPERVISOR CAR INSTALLATIONS SHAVONNE Admitting Unavailable DR LISSETTE MCCAIN Consulting Unavailable MISC, DR MARIE Attending Unavailable MISC, DR MARIE Consulting Unavailable MISC, DR MARIE Admitting Unavailable AICHHOLZ, SUPERVISOR CAR INSTALLATIONS SHAVONNE Primary Care Unavailable DANIELE MOLINA Consulting UnavailROMA Modi Admitting Unavailable ROMA CHAHAL Attending Unavailable AICHHOLZ, SUPERVISOR CAR INSTALLATIONS SHAVONNE Primary Care Unavailable AICHHOLZ, SUPERVISOR CAR INSTALLATIONS SHAVONNE Primary Care Unavailable DR LISSETTE MCCAIN Consulting Unavailable FAWWAD, FLORES H Admitting Unavailable FAWWAD, FLORES H Attending Unavailable FAWWAD, FLORES H Consulting Unavailable DR DARIN CHAPA V Consulting Unavailable AICHHOLZ, SUPERVISOR CAR INSTALLATIONS SHAVONNE Primary Care Unavailable AICHHOLZ, SUPERVISOR CAR INSTALLATIONS SHAVONNE Admitting Unavailable AICHHOLZ, SUPERVISOR CAR INSTALLATIONS SHAVONNE Attending Unavailable AICHHOLZ, SUPERVISOR CAR INSTALLATIONS SHAVONNE Consulting Unavailable AICHHOLMaame, SHAVONNE J Primary Care Physician Rom Faye Jr. Primary Care Provider Rafael Esteban MD Unavailable Ickes PA-C, Barbie Bello Attending Unav ailable Aichholz NEUROPSYCHOLOGY SERVICE DIRECTOR-SUPERVISOR CAR INSTALLATIONS, Shavonne Quesada Primary Care Unava ilable Aichholz NEUROPSYCHOLOGY SERVICE DIRECTOR-SUPERVISOR CAR INSTALLATIONS, Shavonne Quesada Referring Unava ilable Aichholz NEUROPSYCHOLOGY SERVICE DIRECTOR-SUPERVISOR [employer] INSTALLATIONS, Shavonne Quesada Primary Care Unava ilable Ickes PA-C, Barbie Bello Attending Unav ailable Aichholz NEUROPSYCHOLOGY SERVICE DIRECTOR-SUPERVISOR [employer] INSTALLATIONS, Shavonne Quesada Primary Care Unava ilable Ickes PA-C, Barbie Bello Attending Unav ailable Aichholz NEUROPSYCHOLOGY SERVICE DIRECTOR-SUPERVISOR [employer] INSTALLATIONS, Shavonen Quesada Primary Care Unava ilable Aichholz NEUROPSYCHOLOGY SERVICE DIRECTOR-SUPERVISOR [employer] INSTALLATIONS, Shavonne Quesada Referring Unava ilable Claritza NEUROPSYCHOLOGY SERVICE DIRECTOR-SUPERVISOR CAR INSTALLATIONS, Manuel Mcintosh Attending Unav ailable Aichholz NEUROPSYCHOLOGY SERVICE DIRECTOR-SUPERVISOR [employer] INSTALLATIONS, Shavonne Quesada Primary Care Unava ilable Claritza NEUROPSYCHOLOGY SERVICE DIRECTOR-SUPERVISOR [employer] INSTALLATIONS, Manuel Mcintosh Attending Unav ailable Parth Hdz MD Primary Care Provider [phone] EPI, SHAVONNE Attending Unavailable SHAIKH LIANG Attending Unavailable AICHHOLZ, SHAVONNE Attending Unavailable Javier DOWNS Attending Unavailable Javier DOWNS Attending Unavailable OrzechWendi X Attending Unavailable Javier DOWNS Attending Unavailable Orzech Wendi X Attending Unavailable Allergies Allergy Classification Reported Allergen(s) Allergy Type Date of Onset Reaction(s) Facility Opioid Agonists (2 sources) Meperidine Drug Allergy 06-10-20 14 Mental Status Change [facility] Penicillins (antibiotic) (1 source) Penicillins Drug Allergy 03-03-20 05 [facility] Work Phone: (7 sources) Meperidine; Translations: [meperidine] Drug Allergy 02-14-20 20 Hallucinations (finding) [place], [place] (13 sources) Morphine; Translations: [morphine] Drug Allergy 06-10-20 14 Hallucinations (finding), Mental Status Change [place], [place] (2 sources) Penicillins; Translations: [penicillins] Propensity to adverse reactions to drug 02-14-20 20 [place] (7 sources) Penicillin; Translations: [penicillin] Drug Allergy Nausea and vomiting (disorder) [facility] (4 sources) Penicillin G Drug Allergy 08-24-19 24 GI intolerance [facility] Other (3 sources) Meperidine; Translations: [Demerol] Drug Allergy 05-17-20 15 [facility] (1 source) Morphine Drug Allergy 11-20-19 13 [facility] (1 source) Penicillins Drug allergy (disorder) 11-20-19 13 [facility] (1 source) Meperidine Drug Allergy 06-10-20 14 Mental Status Change [facility] (1 source) Penicillins Propensity to adverse reactions 03-03-20 05 [facility] Work Phone: (1 source) Morphine; Translations: [Morphine Sulfate] Drug Allergy [facility] Repository (1 source) opioid-like analgesics; Translations: [opioid-like analgesics] Propensity to adverse reactions to drug (disorder) [facility] (3 sources) Meperidine Drug Allergy 08-24-19 24 [facility] Medications Current Medications Medication Drug Class(es) Dates Sig (Normalized) Sig (Original) acetaminophen 325 mg / HYDROcodone bitartrate 5 mg oral tablet (5 sources) Opioid Agonist Start: 01-24-2023 End: 09-29-2023 take 1 tablet by mouth once HYDROcodone-acetami nophen ([place]) 5-325 MG tablet Take 1 tablet by [...] Start: 03-07-2023 fluticasone Na fortino 0.05 mg/inh [place] Refill(s) 0 Start Date: 03/07/23 Status: Ordered [...] Daily, # 30 tab(s), Refills(s) 11, Pharmacy: [id number], 178, cm, 12/05/23 13:51:00 EDT, Height/Length [...] day(s), # 30 cap(s), Refills(s) 11, Pharmacy: [id number], 178, cm, 03/28/23 11:45:00 EDT, Height/Length [...] period, # 30 tab(s), Refills(s) 3, Pharmacy: [id number], 178, cm, 02/21/24 9:33:00 EDT, Height/Length [...] 07-15-2014 Episodic Other aftercare (1 source) Other retirement (current) drug therapy; Translations: [OTH 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 Substitutions may have occurred due to the [...] Will order Local anesthesia. -Schedule cystoscopy Ordered: 59967 Measure Post Void residual urine and/or bladder [...] Urnls Dip Stick Auto w/o Microscopy POC 95705 2. Urgency of urination (R39.15: Urgency of [...] a lit (more content not included)... Normal [facility] Comment on above: Result Comment: Elec tronically Signed By: RENETTA Watts APRN, Wendi Acuna\.br\Date and Time Signed: 02/21/24 12:26 EDT Retail - Clinical Noteon Retail - Clinical Note [id number] 0TIFF [facility] Ambulatory Visit Summaryon 0 12-05-2023 Ambulatory Visit Summary MARCEL WAHL :1965 Visit Date:12/05/2023 Ambulatory Visit Instructions Your Diagnosis BPH associated with nocturia Urgency of urination Erectile dysfunction Renal cyst Your Care Team Attending Physician - Javier [...] Tab) fluticasone nasal (fluticasone Nasal 0.05 mg/inh [place]) hydrochlorothiazide-li sinopril (hydrochlorothiazide-l isinopril 12.5 mg-10 mg [...] HARKINS, Javier Jones Where: [facility] Lab Reportson 12-05-2023 Lab Reports [id number] 0TIFF [facility] Patient Educationon 12-05-19 24 Patient Education Urology [...] these instructions at home: Medicines ? Take obzi-usv-wmpltst and prescription medicines only as told by [...] include cig (more content not included)... Normal [facility] Urology Office/Clinic Noteon 12-05-2023 Urology Office/Clinic Note [...] of urination) Did start prostate supplement w/ saw erica recently. Has improved urgency some. Stream feels [...] levels 04/01/23 - 299 (drawn @ 10:04) 11/30/23 - 327 (drawn @ 09:54) Discussed levels [...] require monitoring. Follow-up With When Contact Information Javier DOWNS MD, URL [facility] [address], [place] [address]- [phone] Additional Instructions: f/u for ICI teaching Patient Education Erectile Dysfunction I, Shira Limon, personally scribed for Dr. Downs on 12/05/2023 15:03:37. . Documentation recorded by the scribeShira, accurately reflects the services(s) I performed and [...] mg T (more content not included)... Normal [facility] Comment on above: Result Comment: Elec tronically Signed By: Javier DOWNS MD\.br\Date and Time Signed: 12/05/23 15:07 EDT\.br\Electronically Co-Signed By: Shira Limon\.br\Date and Time Co-Signed: 12/05/23 15:04 EDT .eGFRon 09-15-2023 GFR/1.73 sq M.predicted MDRD (S/P/Bld) [Vol rate/Area] mL/min/{1.73_m2} Normal >=60 [facility] Comment on above: Order Comment: Order added by Discern Rule. Result Comment: [facility] Laboratories have implemented the eGFR calculation approach [...] years Performed By: #### E GFR #### [place] [address] CT Angio Chest Abd Pel w/ IV [...] findings as detailed above. Radiation Dose Estimate: CTDI(mGy):0.777110 / / / kVp:110.111806 / mAs:0.621440 / / / DLP(mGy-cm):4.895769Uz dy Part: Abdomen CTDI(mGy):2.459750 / / / kVp:110.274270 / mAs:40.535130 / / / DLP(mGy-cm):2.933112Gr dy Part: Abdomen CTDI(mGy):19.626641 / / / kVp:110.718464 / mAs:40.762120 / / / DLP(mGy-cm):19.399733A tanya Part: Abdomen CTDI(mGy):9.155386 / / / kVp:110.017962 / mAs:161.467638 / / / DLP(mGy-cm):640.679197 Body Part: Abdomen Final Dictated by: Alonso Padgett MD Dictated DT/TM: 09.15.2023 12:28 pm Signed by: Alonso Padgett MD Signed (Electronic Signature): 09.15.2023 1:34 pm (If Report Is Signed, Electronically Signed in Other Vendor System) Normal [facility] POC Creatinine Von POC Crea iStat Venous 1.0 mg/dL Normal 0.6-1.3 [facility] Comment on above: Performed By: #### C [id number] #### [place] [address] Cardiovascular Surgery Offic e/ClinicNoteon 09-05-2023 Cardiovascular Surgery Office/ClinicNote Chief Complaint Aneurysm History of Present Illness Mracel is a 58-year-old gentleman with a history of chronic back issues. Recently had x-ray and imaging of his spine which showed tortuosity of the aorta. He has been referred to our office for this reason. He has had previous echocardiogram at the [facility] which did showed dilation of the ascending [...] aorta. Echocardiogram from March of last year ([facility]) shows 4.1 cm dilated aortic root [...] Daily montelukast (more content not included)... Normal [facility] 04-21-2023 [facility] Telephone (TOMN) MARCEL WAHL ([id number]) 1965 M Date Time Provider Department 04/21/23 [...] via Dr. Shaikh Liang's office. Roselia nurse [phone] Diagnosis: aneurysm All records are in [facility] Oksana Spear RN 05/06/2023 1:57 PM Addendum I have called and discussed with Marcel Brown recommendations which are there is no indication for surgery. He should continue to follow up with his enrobing machine corder with yearly echo and CTA when aorta enlarged close to 5 cm. Also, blood pressure control is essential to keep aorta size stable. He verbalized understanding Oksana Spear RN diagnosis: aorta 4.1 cm on echo history: obesity, chronic back pain, anxiety, asthma, HTN, SALVATORE, Referring Provider: SHAIKH LIANG [[id number]] Allergies As of Date: 04/21/2023 Noted Allergy Reaction DEMEROL (MEPERIDINE (PF)) 06/10/2014 1 - Mental Status Change MORPHINE 06/10/2014 1 - Mental Status Change PENICILLINS 03/03/2005 Date Reviewed: 09/30/2014 Reviewed by: Coco Steinberg RN - Fully Assessed Reason for Visit: Referral Information [[id number]] Prescriptions as of 05/06/2023 - HYDROcodone-Acetaminop hen [...] Status:Closed by OKSANA SPEAR on 05/06/23 Normal [facility] XR Scoliosis Study 2 or 3 Vi chris 03-18-2023 XR Scoliosis Study 2 or 3 [...] Electronically Signed in Other Vendor System) Normal [facility] XR Spine Lumbosacral Bending 2-3 Viewson 03-18-2023 [...] DT/TM: 03/17/2023 10:54 pm Signed by: Jessica Martíenz MD Signed (Electronic Signature): 03/17/2023 10:57 pm (If Report Is Signed, Electronically Signed in Other Vendor System) Normal [facility] Provider Letteron 03-17-2023 Provider Letter Shavonne Chowdary, NEUROPSYCHOLOGY SERVICE DIRECTOR-SUPERVISOR CAR INSTALLATIONS [address] [place] [address] Re: Marcel Wahl Date of Visit: 03/17/2023 Dear Shavonne Chowdary, Thank you for allowing me to contribute to the care of your patient, Marcel Wahl. Attached is my office note and you will find my assessment and recommendations from our encounter today. Please do not hesitate to contact me with any questions or concerns. Sincerely, Barbie Almaraz PA-C [facility] [place] [address] The following document(s) were included in the letter: March 17, 2023 12:49:22 EDT - (03/17/2023) Neurosurgery Office Visit Note Normal [facility] CBC AUTO DIFFon 09-01-2022 BASO # 0.1 103/ul Normal 0.0-0.1 [facility] Comment on above: Performed By: #### C BC ####[facility] [address] [place] [address]Dr. Gema Beck Basophils/100 WBC (Bld) 0.8 % Normal 0.2-2.0 [facility] Comment on above: Performed By: #### C BC ####[facility] [address] [place] [address]Dr. Gema Beck EO # 0.2 103/ul Normal 0.0-0.7 [facility] Comment on above: Performed By: #### C BC ####[facility] [address] [place] [id number]. Gema Beck Eosinophils/100 WBC (Bld) 1.6 % Normal 0.9-7.0 [facility] Comment on above: Performed By: #### C BC ####[facility] [address] [place] [id number]. Gema Beck Erythrocyte distribution width (RBC) [Ratio] 11.8 % Normal 11.0-15.0 [facility] Comment on above: Performed By: #### C BC ####[facility] [address] [place] [id number] Beck Hematocrit (Bld) [Volume fraction] 43.3 % Normal 42.0-54.0 [facility] Comment on above: Performed By: #### C BC ####[facility] [address] [place] [id number]. Gema Beck Hemoglobin (Bld) [Mass/Vol] 14.2 g/dL Normal 14.0-18.0 [facility] Comment on above: Performed By: #### C BC ####[facility] [address] [place] [id number]. Gema Beck IG # 0.07 10e3/ul Critically high 0.00-0.03 [facility] Comment on above: Performed By: #### C BC ####[facility] [address] [place] [id number]. Gema Beck IG % 0.7 % Critically high 0.0-0.5 [facility] Comment on above: Performed By: #### C BC ####[facility] [address] [place] [address]Dr. Gema Beck LYMPH # 2.6 103/ul Normal 1.2-3.8 [facility] Comment on above: Performed By: #### C BC ####[facility] [address] [place] [address]Dr. Gema Beck Lymphocytes/100 WBC (Bld) 27.0 % Normal 20.5-60.0 [facility] Comment on above: Performed By: #### C BC ####[facility] [address] [place] [address]Dr. Gema Beck MANUAL DIFF REQ NO Normal [facility] Comment on above: Performed By: #### C BC ####[facility] [address] [place] [address]Dr. Gema Beck MCH (RBC) [Entitic mass] 32.1 pg Normal 25.9-34.0 [facility] Comment on above: Performed By: #### C BC ####[facility] [address] [place] [address]Dr. Gema Beck MCHC (RBC) [Mass/Vol] 32.8 g/dL Normal 29.9-35.2 [facility] Comment on above: Performed By: #### C BC ####[facility] [address] [place] [id number]. Gema Beck MCV (RBC) [Entitic vol] 98.0 fL Critically high 80.0-94.0 [facility] Comment on above: Performed By: #### C BC ####[facility] [address] [place] [id number]. Gema Beck MONO # 0.7 103/ul Normal 0.3-0.8 [facility] Comment on above: Performed By: #### C BC ####[facility] [address] [place] [id number]. Gema Beck Monocytes/100 WBC (Bld) 7.8 % Normal 1.7-12.0 [facility] Comment on above: Performed By: #### C BC ####[facility] [address] [place] [id number]. Gema Beck NEUT # 5.9 103/ul Normal 1.4-6.5 [facility] Comment on above: Performed By: #### C BC ####[facility] [address] [place] [id number]. Gema Beck Neutrophils/100 WBC (Bld) 62.1 % Normal 43.0-75.0 [facility] Comment on above: Performed By: #### C BC ####[facility] [address] [place] [id number]. Gema Beck Platelet mean volume (Bld) [Entitic vol] 9.1 fL Critically low 9.5-13.5 [facility] Comment on above: Performed By: #### C BC ####[facility] [address] [place] [id number]. Gema Beck PLT 342 103/ul Normal 150-450 [facility] Comment on above: Performed By: #### C BC ####[facility] [address] [place] [id number]. Gema Beck RBC 4.42 106/ul Critically low 4.70-6.10 [facility] Comment on above: Performed By: #### C BC ####[facility] [address] [place] [id number]. Gema Beck WBC 9.5 103/ul Normal 4.0-11.0 [facility] Comment on above: Performed By: #### C BC ####[facility] [address] [place] [address]Dr. Gema Beck PROF 14(COMP METB)on 023 Albumin [Mass/Vol] 3.6 g/dL Normal 3.4-5.0 [facility] Comment on above: Performed By: #### C MP #### [facility] [address] [address] [address] Gema Beck Albumin/Globulin [Mass ratio] 1.1 {ratio} Normal [facility] Comment on above: Performed By: #### C MP #### [facility] [address] [address] [address] Gema Beck ALP [Catalytic activity/Vol] 66 U/L Normal 46-116 [facility] Comment on above: Performed By: #### C MP #### [facility] [address] [address] [address] Gema Beck ALT [Catalytic activity/Vol] 22 U/L Normal 16-63 [facility] Comment on above: Performed By: #### C MP #### [facility] [address] [address] [address] Gema Beck Anion gap [Moles/Vol] 13.2 mmol/L Normal [facility] Comment on above: Performed By: #### C MP #### [facility] [address] [address] [address] Gema Beck AST [Catalytic activity/Vol] 15 U/L Normal 15-37 [facility] Comment on above: Performed By: #### C MP #### [facility] [address] [address] [address] Gema Beck Bilirubin [Mass/Vol] 0.3 mg/dL Normal 0.2-1.0 [facility] Comment on above: Performed By: #### C MP #### [facility] [address] [address] [address] Gema Beck Calcium [Mass/Vol] 8.7 mg/dL Normal 8.5-10.1 [facility] Comment on above: Performed By: #### C MP #### [facility] [address] [address] [address] Gema Beck Chloride [Moles/Vol] 105 mmol/L Normal 98-107 [facility] Comment on above: Performed By: #### C MP #### [facility] [address] [address] [address] Gema Beck CO2 [Moles/Vol] 27.6 mmol/L Normal 21.0-32.0 [facility] Comment on above: Performed By: #### C MP #### [facility] [address] [place] [address] Dr. Gema Beck Creatinine [Mass/Vol] 0.83 mg/dL Normal 0.70-1.30 [facility] Comment on above: Performed By: #### C MP #### [facility] [address] [place] [address] Dr. Gema Beck EGFR-AF SALVADOREAN >60 Normal >=60 [facility] Comment on above: Performed By: #### C MP #### [facility] [address] [place] [address] Dr. Gema Beck EGFR-NON AF SALVADOREAN >60 Normal >=60 [facility] Comment on above: Performed By: #### C MP #### [facility] [address] [place] [address] Dr. Gema Beck Globulin (S) [Mass/Vol] 3.4 g/dL Normal [facility] Comment on above: Performed By: #### C MP #### [facility] [address] [place] [address] Dr. Gema Beck Glucose [Mass/Vol] 97 mg/dL Normal 74-106 [facility] Comment on above: Performed By: #### C MP #### [facility] [address] [place] [address] Dr. Gema Beck Potassium [Moles/Vol] 3.8 mmol/L Normal 3.5-5.1 [facility] Comment on above: Performed By: #### C MP #### [facility] [address] [place] [address] Dr. Gema Beck Protein [Mass/Vol] 7.0 g/dL Normal 6.4-8.2 [facility] Comment on above: Performed By: #### C MP #### [facility] [address] [address] [address] Gema Beck Sodium [Moles/Vol] 142 mmol/L Normal 136-145 [facility] Comment on above: Performed By: #### C MP #### [facility] [address] [address] [address] Gema Beck Urea nitrogen [Mass/Vol] 17.0 mg/dL Normal 7.0-18.0 [facility] Comment on above: Performed By: #### C MP #### [facility] [address] [address] [address] Gema Beck Urea nitrogen/Creatinine [Mass ratio] 20.5 mg/mg Normal [facility] Comment on above: Performed By: #### C MP #### [facility] [address] [address] [address] Gema Beck CBC AUTO DIFFon 06-29-2022 BASO # 0.1 103/ul Normal 0.0-0.1 [facility] Comment on above: Performed By: #### C BC ####[facility] [address] [place] [address]DrSohail Beck Basophils/100 WBC (Bld) 1.4 % Normal 0.2-2.0 [facility] Comment on above: Performed By: #### C BC ####[facility] [address] [place] [address]DrSohail Beck EO # 0.1 103/ul Normal 0.0-0.7 [facility] Comment on above: Performed By: #### C BC ####[facility] [address] [place] [address]DrSohail Beck Eosinophils/100 WBC (Bld) 2.1 % Normal 0.9-7.0 [facility] Comment on above: Performed By: #### C BC ####[facility] [address] [place] [address]Dr. Gema Beck Erythrocyte distribution width (RBC) [Ratio] 12.3 % Normal 11.0-15.0 [facility] Comment on above: Performed By: #### C BC ####[facility] [address] [place] [address]Dr. Gema Beck Hematocrit (Bld) [Volume fraction] 42.2 % Normal 42.0-54.0 [facility] Comment on above: Performed By: #### C BC ####[facility] [address] [place] [address]Dr. Gema Beck Hemoglobin (Bld) [Mass/Vol] 13.9 g/dL Critically low 14.0-18.0 [facility] Comment on above: Performed By: #### C BC ####[facility] [address] [place] [address]Dr. Gema Beck IG # 0.07 10e3/ul Critically high 0.00-0.03 [facility] Comment on above: Performed By: #### C BC ####[facility] [address] [place], [place] [address]Dr. Gema Beck IG % 1.1 % Critically high 0.0-0.5 [facility] Comment on above: Performed By: #### C BC ####[facility] [address] [place], [place] [address]Dr. Gema Kiran LYMPH # 1.9 103/ul Normal 1.2-3.8 [facility] Comment on above: Performed By: #### C BC ####[facility] [address]ub[address] [place] [address]Dr. Gema Kiran Lymphocytes/100 WBC (Bld) 28.6 % Normal 20.5-60.0 [facility] Comment on above: Performed By: #### C BC ####[facility] Neydftjkwc[address] [place], [place] [address]Dr. Gema Kiran MANUAL DIFF REQ NO Normal [facility] Comment on above: Performed By: #### C BC ####[facility] Hrrwrgurga[address] [place], [place] [address]Dr. Gema Kiran MCH (RBC) [Entitic mass] 32.0 pg Normal 25.9-34.0 [facility] Comment on above: Performed By: #### C BC ####[facility] Voxdjvdbik[address] [place] [address]Dr. Gema Beck MCHC (RBC) [Mass/Vol] 32.9 g/dL Normal 29.9-35.2 [facility] Comment on above: Performed By: #### C BC ####[facility] Ymyuckgrip[address] [place], [place] [address]Dr. Gema Beck MCV (RBC) [Entitic vol] 97.0 fL Critically high 80.0-94.0 [facility] Comment on above: Performed By: #### C BC ####[facility] Amhendiymj[address] [place], [place] [address]Dr. Gema Kiran MONO # 0.5 103/ul Normal 0.3-0.8 [facility] Comment on above: Performed By: #### C BC ####[facility] Izqchtccfa[address] [place], [place] [address]Dr. Gema Kiran Monocytes/100 WBC (Bld) 8.0 % Normal 1.7-12.0 [facility] Comment on above: Performed By: #### C BC ####[facility] Dmsckkjcjo[address] [place], [place] [address]Dr. Gema Beck NEUT # 3.9 103/ul Normal 1.4-6.5 [facility] Comment on above: Performed By: #### C BC ####[facility] Zcyabpvjmh312[address] [place], [place] [address]Dr. Gema Kiran Neutrophils/100 WBC (Bld) 58.8 % Normal 43.0-75.0 [facility] Comment on above: Performed By: #### C BC ####[facility] N[address]lhijid[address] [place], [place] [address]Dr. Gema Beck Platelet mean volume (Bld) [Entitic vol] 9.6 fL Normal 9.5-13.5 [facility] Comment on above: Performed By: #### C BC ####[facility] Ukeelniadf[address] [place], [place] [address]Hq. Gema Beck PLT 334 103/ul Normal 150-450 [facility] [place] Comment on above: Performed By: #### C BC ####[facility] Eluhqtrvfr[address]207 [place], [place] [address]Xl. Gema Beck RBC 4.35 106/ul Critically low 4.70-6.10 [facility] Comment on above: Performed By: #### C BC ####[facility] Znpgkrdxtn26[address] [place], [place] [address]Hc. Gema Beck WBC 6.7 103/ul Normal 4.0-11.0 [facility] [place] Comment on above: Performed By: #### C BC ####[facility] Tvsnpxqq[address] [place] [id number] Beck GLYCOHEMOGLOBIN A1Con 2021 ADA RECOMMENDATION SEE BELOW Normal [facility] Comment on above: Result Comment: ADA RECOMMENDED LIMIT 4.0 - 6.0 ADA THERAPEUTIC TARGET < 7.0 ACTION SUGGESTED > 7.0 Performed By: #### A 1C ####[facility] Ebftrtumsw[address] [place] [id number]. Gema Beck Glucose [Mass/Vol] 120 mg/dL Normal [facility] Comment on above: Performed By: #### A 1C ####[facility] [address]bm[address]klbq[address] [place] [id number] Beck HbA1c (Bld) [Mass fraction] 5.8 % Normal 4.5-6.2 [facility] [place] Comment on above: Performed By: #### A 1C ####[facility] [address]fzp[address] [place] [id number] Beck LIPID PROFILEon 06-29-2022 CHOL-HDL RATIO NORM SEE BELOW Normal [facility] Comment on above: Result Comment: 3.3 - 4.4 LOW RISK 4.4 - 7.1 AVERAGE RISK 7.1 - 11.0 MODERATE RISK >11.0 HIGH RISK Performed By: #### L IPID, TSH, CMP #### [facility] [address] [place], [place] [address] Dr. Gema Beck Cholesterol [Mass/Vol] 183 mg/dL Normal <=200 [facility] [place] Comment on above: Performed By: #### L IPID, TSH, CMP #### [facility] [address] [place] [address] [address] Gema Beck Cholesterol in HDL [Mass/Vol] 44 mg/dL Normal 40-60 [facility] [place] Comment on above: Performed By: #### L IPID, TSH, CMP #### [facility] [address] [place] [address] [address] Gema Beck Cholesterol in LDL [Mass/Vol] 125.2 mg/dL Normal [facility] [place] Comment on above: Performed By: #### L IPID, TSH, CMP #### [facility] [address] [place] [address] [address] Gema Beck Cholesterol.total/Ch olesterol in HDL [Mass ratio] 4.2 {ratio} Normal [facility] [place] Comment on above: Performed By: #### L IPID, TSH, CMP #### [facility] [address] [place] [address] [address] Gema Beck HDL NORMAL > or = 60 mg/dl - LO W CARDIOVASCULAR RISK <40 mg/dl - HIGH CARDIOVASCULAR RISK Normal [facility] [place] Comment on above: Performed By: #### L IPID, TSH, CMP #### [facility] [address] [place] [address] [address] Gema Beck LDL CALC NORMAL SEE BELOW Normal [facility] Comment on above: Result Comment: <100 mg/dl OPTIMAL 100 - 129 mg/dl NEAR OR ABOVE OPTIMAL 130 - 159 mg/dl BORDERLINE HIGH 160 - 189 mg/dl HIGH >190 mg/dl VERY HIGH Performed By: #### L IPID, TSH, CMP #### [facility] [address] [place] [address] [address] Gema Beck Triglyceride [Mass/Vol] 69 mg/dL Normal <=150 [facility] Comment on above: Performed By: #### L IPID, TSH, CMP #### [facility] [address] [place] [address] [address] Gema Beck VLDL CALC 13.8 mg/dL Normal [facility] [place] Comment on above: Performed By: #### L IPID, TSH, CMP #### [facility] [address] [place] [address] [address] Gema Beck PROF 14(COMP METB)on 022 Albumin [Mass/Vol] 3.6 g/dL Normal 3.4-5.0 [facility] Comment on above: Performed By: #### L IPID, TSH, CMP #### [facility] [address] [place] [address] [address] Gema Beck Albumin/Globulin [Mass ratio] 1.1 {ratio} Normal [facility] [place] Comment on above: Performed By: #### L IPID, TSH, CMP #### [facility] [address] [place] [address] Dr. Gema Beck ALP [Catalytic activity/Vol] 73 U/L Normal 46-116 [facility] [place] Comment on above: Performed By: #### L IPID, TSH, CMP #### [facility] [address] [place] [address] Dr. Gema Beck ALT [Catalytic activity/Vol] 29 U/L Normal 16-63 [facility] [place] Comment on above: Performed By: #### L IPID, TSH, CMP #### [facility] [address] [place] [address] Dr. Gema Beck Anion gap [Moles/Vol] 7.3 mmol/L Normal [facility] [place] Comment on above: Performed By: #### L IPID, TSH, CMP #### [facility] [address] [place] [address] Dr. Gema Beck AST [Catalytic activity/Vol] 18 U/L Normal 15-37 [facility] [place] Comment on above: Performed By: #### L IPID, TSH, CMP #### [facility] [address] [place] [address] Dr. Gema Beck Bilirubin [Mass/Vol] 0.4 mg/dL Normal 0.2-1.0 [facility] [place] Comment on above: Performed By: #### L IPID, TSH, CMP #### [facility] [address] [place] [address] [address] Gema Beck Calcium [Mass/Vol] 8.6 mg/dL Normal 8.5-10.1 [facility] Comment on above: Performed By: #### L IPID, TSH, CMP #### [facility] [address] [place] [address] Dr. Gema Beck Chloride [Moles/Vol] 104 mmol/L Normal 98-107 [facility] Comment on above: Performed By: #### L IPID, TSH, CMP #### [facility] [address] [place] [address] Dr. Gema Beck CO2 [Moles/Vol] 29.1 mmol/L Normal 21.0-32.0 [facility] Comment on above: Performed By: #### L IPID, TSH, CMP #### [facility] [address] [place] [address] Dr. Gema Beck Creatinine [Mass/Vol] 0.88 mg/dL Normal 0.70-1.30 [facility] Comment on above: Performed By: #### L IPID, TSH, CMP #### [facility] [address] [place] [address] Dr. Gema Beck EGFR-AF SALVADOREAN >60 Normal >=60 [facility] Comment on above: Performed By: #### L IPID, TSH, CMP #### [facility] [address] [place] [address] Dr. Gema Beck EGFR-NON AF SALVADOREAN >60 Normal >=60 [facility] Comment on above: Performed By: #### L IPID, TSH, CMP #### [facility] [address] [place] [address] Dr. Gema Beck Globulin (S) [Mass/Vol] 3.4 g/dL Normal [facility] Comment on above: Performed By: #### L IPID, TSH, CMP #### [facility] [address] [place] [address] Dr. Gema Beck Glucose [Mass/Vol] 99 mg/dL Normal 74-106 [facility] Comment on above: Performed By: #### L IPID, TSH, CMP #### [facility] [address] [place] [address] [address] Gema Beck Potassium [Moles/Vol] 4.4 mmol/L Normal 3.5-5.1 [facility] [place] Comment on above: Performed By: #### L IPID, TSH, CMP #### [facility] [address] [place] [address] [address] Gema Beck Protein [Mass/Vol] 7.0 g/dL Normal 6.4-8.2 [facility] Comment on above: Performed By: #### L IPID, TSH, CMP #### [facility] [address] [place] [address] [address] Gema Beck Sodium [Moles/Vol] 136 mmol/L Normal 136-145 [facility] Comment on above: Performed By: #### L IPID, TSH, CMP #### [facility] [address] [place] [address] [address] Gema Beck Urea nitrogen [Mass/Vol] 17.0 mg/dL Normal 7.0-18.0 [facility] [place] Comment on above: Performed By: #### L IPID, TSH, CMP #### [facility] [address] [place] [address] [address] Gema Beck Urea nitrogen/Creatinine [Mass ratio] 19.3 mg/mg Normal [facility] [place] Comment on above: Performed By: #### L IPID, TSH, CMP #### [facility] [address] [place] [address] [address] Gema Beck TSHon 06-29-2022 TSH 1.148 uIU/mL Normal 0.358-3.740 [facility] [place] [facility] Comment on above: Performed By: #### L IPID, TSH, CMP ####[facility] [address] [place] [address]Dr. Gema Beck UA RANDOM W/MICROSCOPICon BACTERIA NONE SEEN Normal NONE SEEN [facility] Comment on above: Performed By: #### U AMIC #### [facility] [address] [place] [address] [address] Gema Beck Bilirubin Ql (U) SMALL Abnormal NEGATIVE [facility] Comment on above: Performed By: #### U AMIC #### [facility] [address] [place] [address] [address] Gema Beck CAST NONE SEEN Normal NONE SEEN [facility] [place] Comment on above: Performed By: #### U AMIC #### [facility] [address] [place] [address] [address] Gema Beck Clarity (U) CLEAR Normal CLEAR [facility] Comment on above: Performed By: #### U AMIC #### [facility] [address] [place] [address] [address] Gema Beck Color (U) LT. YELLOW Normal YELLOW [facility] Comment on above: Performed By: #### U AMIC #### [facility] [address] [place] [address] [address] Gema Beck Crystals LM Nom (Urine sed) NONE SEEN Normal NONE SEEN [facility] [place] Comment on above: Performed By: #### U AMIC #### [facility] [address] [place] [address] [address] Gema Beck Epithelial cells LM Ql (Urine sed) RARE Normal NONE SEEN /RARE [facility] Comment on above: Performed By: #### U AMIC #### [facility] [address] [place] [address] [address] Gema Beck Glucose Ql (U) Negative Normal NEGATIVE [facility] Comment on above: Performed By: #### U AMIC #### [facility] [address] [place] [address] [address] Gema Beck Hemoglobin Ql (U) Negative Normal NEGATIVE [facility] Comment on above: Performed By: #### U AMIC #### [facility] [address] [place] [address] [address] Gema Beck Ketones Ql (U) Negative Normal NEGATIVE [facility] Comment on above: Performed By: #### U AMIC #### [facility] [address] [place] [address] [address] Gema Beck LEUKOCYTES Negative Normal NEGATIVE [facility] Comment on above: Performed By: #### U AMIC #### [facility] [address] [place] [address] [address] Gema Beck MUCOUS NONE SEEN Normal NONE SEEN [facility] Comment on above: Performed By: #### U AMIC #### [facility] [address] [place] [address] Dr. Gema Beck Nitrite Ql (U) Negative Normal NEGATIVE [facility] Comment on above: Performed By: #### U AMIC #### [facility] [address] [place] [address] Dr. Gema Beck pH (U) 5.5 [pH] Normal 5-9 [facility] Comment on above: Performed By: #### U AMIC #### [facility] [address] [place] [address] Dr. Gema Beck RBC NONE SEEN Abnormal 0-2 [facility] [place] Comment on above: Performed By: #### U AMIC #### [facility] [address] [place] [address] Dr. Gema Beck SPEC GRAVITY 1.010 Normal 1.005-<=1.025 [facility] Comment on above: Performed By: #### U AMIC #### [facility] [address] [place] [address] Dr. Gema Beck UA PROTEIN Negative Normal NEGATIVE/ TRACE [facility] Comment on above: Performed By: #### U AMIC #### [facility] [address] [place] [address] Dr. Gema Beck Urobilinogen Qn (U) 0.2 {Merari'U}/dL Normal 0.2 - 1. 0 [facility] Comment on above: Performed By: #### U AMIC #### [facility] [address] [place] [address] Dr. Gema Beck WBC NONE SEEN Normal NONE SEEN [facility] Comment on above: Performed By: #### U AMIC #### [facility] [address] [place] [address] Dr. Gema Beck ALDOLASEon 03-04-2022 Aldolase 3.4 U/L Normal 3.3-10.3 [facility] [place] Comment on above: Performed By: #### A LDOLAS ####[facility] [address] [place] [address]Dr. Gema Beck CPKon 03-03-2022 CK [Catalytic activity/Vol] 205 U/L Normal 39-308 [facility] [place] Comment on above: Performed By: #### L DH, CK, EVI #### [facility] [address] [place] [address] [address] Gema Beck LDHon 03-03-2022 LDH 180 U/L Normal 85-227 [facility] [place] Comment on above: Performed By: #### L DH, CK, EVI #### [facility] [address] [place] [address] Dr. Gema Beck MYOGLOBINon 03-03-2022 EVI 65 ng/mL Normal 16-96 [facility] [place] Comment on above: Performed By: #### L DH, CK, EVI #### [facility] [address] [place] [address] Dr. Gema Beck CBC AUTO DIFFon 02-23-2022 BASO # 0.1 103/ul Normal 0.0-0.1 [facility] [place] Comment on above: Performed By: #### C BC ####[facility] [address] [place], [place] [address]DrSohail Beck Basophils/100 WBC (Bld) 1.1 % Normal 0.2-2.0 [facility] [place] Comment on above: Performed By: #### C BC ####[facility] [address] [place] [address]DrSohail Beck EO # 0.1 103/ul Normal 0.0-0.7 [facility] Comment on above: Performed By: #### C BC ####[facility] [address]olucski[address] [place] [address]DrSohail Beck Eosinophils/100 WBC (Bld) 1.5 % Normal 0.9-7.0 [facility] Comment on above: Performed By: #### C BC ####[facility] [address]xunr[address] [place] [address]DrSohail Beck Erythrocyte distribution width (RBC) [Ratio] 12.0 % Normal 11.0-15.0 [facility] [place] Comment on above: Performed By: #### C BC ####[facility] [address]uc[address] [place] [address]Dr. Gema Beck Hematocrit (Bld) [Volume fraction] 42.9 % Normal 42.0-54.0 [facility] [place] Comment on above: Performed By: #### C BC ####[facility] X[address]ronn[address] [place], [place] [address]Dr. Gema Beck Hemoglobin (Bld) [Mass/Vol] 14.0 g/dL Normal 14.0-18.0 [facility] [place] Comment on above: Performed By: #### C BC ####[facility] I[address]jcbtf[address] [place], [place] [address]Dr. Enedeliaamairani Beck IG # 0.04 10e3/ul Critically high 0.00-0.03 [facility] Comment on above: Performed By: #### C BC ####[facility] S[address]dw[address]qsc[address] [place], [place] [address]Dr. Gema Beck IG % 0.6 % Critically high 0.0-0.5 [facility] Comment on above: Performed By: #### C BC ####[facility] [address]feqwh[address] [place], [place] [address]Dr. Gema Beck LYMPH # 2.1 103/ul Normal 1.2-3.8 [facility] Comment on above: Performed By: #### C BC ####[facility] Cwkitbsmnb[address] [place], [place] [address]DrSohail Gema Beck Lymphocytes/100 WBC (Bld) 28.6 % Normal 20.5-60.0 [facility] Comment on above: Performed By: #### C BC ####[facility] [address]qcp[address] [place], [place] [address]Dr. Gema Kiran MANUAL DIFF REQ NO Normal [facility] Comment on above: Performed By: #### C BC ####[facility] Ofqlzmenqa[address] [place], [place] [address]Dr. Gema Beck MCH (RBC) [Entitic mass] 31.9 pg Normal 25.9-34.0 [facility] Comment on above: Performed By: #### C BC ####[facility] [address]nkvmmu[address] [place] [address]Dr. Gema Kiran MCHC (RBC) [Mass/Vol] 32.6 g/dL Normal 29.9-35.2 [facility] Comment on above: Performed By: #### C BC ####[facility] Fubdkqldin[address] [place], [place] [address]Dr. Gema Beck MCV (RBC) [Entitic vol] 97.7 fL Critically high 80.0-94.0 [facility] Comment on above: Performed By: #### C BC ####[facility] F[address]uvmkvccc[address] [place], [place] [address]Dr. Gema Beck MONO # 0.6 103/ul Normal 0.3-0.8 [facility] Comment on above: Performed By: #### C BC ####[facility] [address]jgbyaygmd[address] [place], [place] [address]Dr. Gema Beck Monocytes/100 WBC (Bld) 7.8 % Normal 1.7-12.0 [facility] Comment on above: Performed By: #### C BC ####[facility] [address]dfwafk[address] [place], [place] [address]Dr. Gema Beck NEUT # 4.4 103/ul Normal 1.4-6.5 [facility] Comment on above: Performed By: #### C BC ####[facility] Mpbksjqsqi[address] [place], [place] [address]Dr. Gema Beck Neutrophils/100 WBC (Bld) 60.4 % Normal 43.0-75.0 [facility] Comment on above: Performed By: #### C BC ####[facility] Mhy[address]azolr[address] [place], [place] [address]DrSohail Beck Platelet mean volume (Bld) [Entitic vol] 9.2 fL Critically low 9.5-13.5 [facility] Comment on above: Performed By: #### C BC ####[facility] Ty[address]ix[address]uss[address] [place], [place] [address]DrSohail Beck PLT 376 103/ul Normal 150-450 [facility] Comment on above: Performed By: #### C BC ####[facility] [address] [place] [id number] Beck RBC 4.39 106/ul Critically low 4.70-6.10 [facility] Comment on above: Performed By: #### C BC ####[facility] [address]fr[address] [place], [place] [address]XmSohail Beck WBC 7.2 103/ul Normal 4.0-11.0 [facility] [place] Comment on above: Performed By: #### C BC ####[facility] [address]emztut[address] [place] [id number]. Gema Beck PROF 14(COMP METB)on 022 Albumin [Mass/Vol] 3.7 g/dL Normal 3.4-5.0 [facility] Comment on above: Performed By: #### C MP #### [facility] [address] [place] [address] [address] Gema Beck Albumin/Globulin [Mass ratio] 1.1 {ratio} Normal [facility] [place] Comment on above: Performed By: #### C MP #### [facility] [address] [place] [address] [address] Gema Beck ALP [Catalytic activity/Vol] 67 U/L Normal 46-116 [facility] Comment on above: Performed By: #### C MP #### [facility] [address] [place] [address] [address] Gema Beck ALT [Catalytic activity/Vol] 28 U/L Normal 16-63 [facility] Comment on above: Performed By: #### C MP #### [facility] [address] [place] [address] [address] Gema Beck Anion gap [Moles/Vol] 10.3 mmol/L Normal [facility] [place] Comment on above: Performed By: #### C MP #### [facility] [address] [place] [address] [address] Gema Beck AST [Catalytic activity/Vol] 19 U/L Normal 15-37 [facility] [place] Comment on above: Performed By: #### C MP #### [facility] [address] [place] [address] Dr. Gema Beck Bilirubin [Mass/Vol] 0.5 mg/dL Normal 0.2-1.0 [facility] [place] Comment on above: Performed By: #### C MP #### [facility] [address] [place] [address] Dr. Gema Beck Calcium [Mass/Vol] 8.8 mg/dL Normal 8.5-10.1 [facility] Comment on above: Performed By: #### C MP #### [facility] [address] [place] [address] Dr. Gema Beck Chloride [Moles/Vol] 104 mmol/L Normal 98-107 [facility] [place] Comment on above: Performed By: #### C MP #### [facility] [address] [place] [address] Dr. Gema Beck CO2 [Moles/Vol] 30.0 mmol/L Normal 21.0-32.0 [facility] Comment on above: Performed By: #### C MP #### [facility] [address] [place] [address] Dr. Gema Beck Creatinine [Mass/Vol] 0.86 mg/dL Normal 0.70-1.30 [facility] [place] Comment on above: Performed By: #### C MP #### [facility] [address] [place] [address] Dr. Gema Beck EGFR-AF SALVADOREAN >60 Normal >=60 [facility] Comment on above: Performed By: #### C MP #### [facility] [address] [place] [address] Dr. Gema Beck EGFR-NON AF SALVADOREAN >60 Normal >=60 [facility] [place] Comment on above: Performed By: #### C MP #### [facility] [address] [place] [address] Dr. Gema Beck Globulin (S) [Mass/Vol] 3.5 g/dL Normal [facility] [place] Comment on above: Performed By: #### C MP #### [facility] [address] [place] [address] [address] Gema Beck Glucose [Mass/Vol] 103 mg/dL Normal 74-106 [facility] Comment on above: Performed By: #### C MP #### [facility] [address] [place] [address] [address] Gema Beck Potassium [Moles/Vol] 4.3 mmol/L Normal 3.5-5.1 [facility] [place] Comment on above: Performed By: #### C MP #### [facility] [address] [place] [address] [address] Gema Beck Protein [Mass/Vol] 7.2 g/dL Normal 6.4-8.2 [facility] Comment on above: Performed By: #### C MP #### [facility] [address] [place] [address] [address] Gema Beck Sodium [Moles/Vol] 140 mmol/L Normal 136-145 [facility] Comment on above: Performed By: #### C MP #### [facility] [address] [place] [address] [address] Gema Beck Urea nitrogen [Mass/Vol] 18.0 mg/dL Normal 7.0-18.0 [facility] [place] Comment on above: Performed By: #### C MP #### [facility] [address] [place] [address] [address] Gema Beck Urea nitrogen/Creatinine [Mass ratio] 20.9 mg/mg Normal [facility] [place] Comment on above: Performed By: #### C MP #### [facility] [address] [place] [address] [address] Gema Beck XR CHEST (2 VW)on [...] Terence Leroy MD 02/14/20 Final result Normal [facility] XR CHEST STANDARD (2 VW)on 0 02-14-2020 Negative chest. [facility] EXAMINATION: TWO XRA Y VIEWS OF THE CHEST 02/14/2020 2:30 pm COMPARISON: None. HISTORY: ORDERING SYSTEM PROVIDED HISTORY: insure deep inspiration FINDINGS: The lungs are without acute focal process. No effusion or pneumothorax. The cardiomediastinal silhouette is normal. The osseous structures are intact without acute process. [facility] [place], [facility] Incoming Radiant Results From [employer] - 02/14/2020 2:38 PM EDT EXAMINATION: TWO XRAY VIEWS OF THE CHEST 02/14/2020 2:30 pm COMPARISON: None. HISTORY: ORDERING SYSTEM PROVIDED HISTORY: insure deep inspiration FINDINGS: The lungs are without acute focal process. No effusion or pneumothorax. The cardiomediastinal silhouette is normal. The osseous structures are intact without acute process. IMPRESSION: Negative chest. [facility] Vital Signs Date Time Vital Sign Value Performing Clinician Facility 02-21-2024 09:29-0400 Blood Pressure Location Wendi Orzech [facility] 02-21-2024 09:29-0400 Diastolic blood pressure 81 mm[Hg] Wendi Orzech [facility] 02-21-2024 09:29-0400 Heart rate 101 /min Wendi Orzech [facility] 02-21-2024 09:29-0400 Respiratory rate 16 /min Wendi Orzech [facility] 02-21-2024 09:29-0400 Systolic blood pressure 136 mm[Hg] Wendi Orzech [facility] 12-05-2023 13:49-0400 Blood Pressure Location Javier DOWNS [facility] 12-05-2023 13:49-0400 Diastolic blood pressure 84 mm[Hg] Javier DOWNS [facility] 12-05-2023 13:49-0400 Heart rate 87 /min Javier DOWNS [facility] 12-05-2023 13:49-0400 Respiratory rate 16 /min Javier DOWNS [facility] 12-05-2023 13:49-0400 Systolic blood pressure 131 mm[Hg] Javier DOWNS [facility] 09-29-2023 13:07-0500 Body height 177.8 cm Shavonne Chowdary ENTERTAINMENT CENTRE MANAGER Work Phone: [facility] 09-29-2023 13:07-0500 Body mass index (BMI) [Ratio] 45.31 kg/m2 Shavonne Chowdary ENTERTAINMENT CENTRE MANAGER Work Phone: [facility] 09-29-2023 13:07-0500 Body temperature 98.2 [degF] Shavonne Chowdary ENTERTAINMENT CENTRE MANAGER Work Phone: [facility] 09-29-2023 13:07-0500 Body weight 143.25 kg Shavonne Chowdary ENTERTAINMENT CENTRE MANAGER Work Phone: [facility] 09-29-2023 13:07-0500 Diastolic blood pressure 88 mm[Hg] Shavonne Epi ENTERTAINMENT CENTRE MANAGER Work Phone: [facility] 09-29-2023 13:07-0500 Heart rate 91 /min Shavonne Epi ENTERTAINMENT CENTRE MANAGER Work Phone: [facility] 09-29-2023 13:07-0500 Respiratory rate 19 /min Shavonne Chowdary ENTERTAINMENT CENTRE MANAGER Work Phone: [facility] 09-29-2023 13:07-0500 SaO2% (BldA) [Mass fraction] 98 % Shavonne Epi ENTERTAINMENT CENTRE MANAGER Work Phone: [facility] 09-29-2023 13:07-0500 Systolic blood pressure 138 mm[Hg] Shavonne Wongginette ENTERTAINMENT CENTRE MANAGER Work Phone: [facility] 03-28-2023 11:36-0400 Blood Pressure Location Javier DOWNS [facility] 03-28-2023 11:36-0400 Diastolic blood pressure 80 mm[Hg] Javier DOWNS [facility] 03-28-2023 11:36-0400 Heart rate 84 /min Javier DOWNS [facility] 03-28-2023 11:36-0400 Respiratory rate 16 /min Javier DOWNS [facility] 03-28-2023 11:36-0400 Systolic blood pressure 135 mm[Hg] Javier DOWNS [facility] 01-03-2023 11:30-0400 Body height 177.8 cm Carrie Staples Other [employer] Other 01-03-2023 11:30-0400 Body mass index (BMI) [Ratio] 45.59 kg/m2 Carrie Staples Other [employer] [facility] [employer] Other 01-03-2023 11:30-0400 Body weight 144.15 kg Carrie Staples Other [employer] Other 01-03-2023 11:30-0400 Diastolic blood pressure 75 mm[Hg] Carrie Staples Other [employer] Other 01-03-2023 11:30-0400 Respiratory rate 18 /min Carrie Staples Other [employer] Other 01-03-2023 11:30-0400 SaO2% (BldA) [Mass fraction] 95 % Carrie Staples Other [employer] Other 01-03-2023 11:30-0400 Systolic blood pressure 112 mm[Hg] Carrie Staples Other [employer] Other 02-14-2020 14:16-0400 BP Diastolic 79 mm[Hg] [place] 02-14-2020 14:16-0400 BP Systolic 118 mm[Hg] [place] 02-14-2020 14:16-0400 Pulse (Heart Rate) 87 /min [place] 02-14-2020 14:16-0400 Pulse Oximetry 97 % [place] 02-14-2020 13:29-0400 Body Temperature 97.39 [degF] [facility] [place] 02-14-2020 13:29-0400 Respiratory Rate 16 /min [facility] [place] Encounters Encounter Date Encounter Type Care Provider Facility Start: 06-26-2024 ambulatory Wendi Watts Facilit y:ALONSO Martin Start: 02-21-2024 End: 02-21-2024 ambulatory SHAVONNE CHOWDARY Not Available Start: 02-21-2024 End: 02-21-2024 ambulatory Wendi Acuna Orayanna Facility:ALONSO Martin Start: 02-21-2024 End: 02-21-2024 Patient encounter procedure Wendi Watts [facility] Start: 01-23-2024 End: 01-23-2024 ambulatory Javier DOWNS Facility:ALONSO Martin Start: 01-23-2024 End: 01-23-2024 Patient encounter procedure Javier Jones NEVAEH [facility] Start: 12-21-2023 End: 12-21-2023 ambulatory SHAIKH NATHALY Not Available Start: 12-05-2023 End: 12-05-2023 ambulatory Javier DOWNS Facility:[facility] Start: 12-05-2023 End: 12-05-2023 Patient encounter procedure Javier Jones NEVAEH [facility] Start: 09-29-2023 Bamboo flowsheet Shavonne Chowdary ENTERTAINMENT CENTRE MANAGER Work Phone: [facility] Start: 09-29-2023 Bamboo flowsheet Shavonne Chowdary ENTERTAINMENT CENTRE MANAGER Work Phone: [facility] Start: 09-29-2023 End: 09-29-2023 ambulatory SHAVONNE CHOWDARY Not Available Start: 09-29-2023 End: 09-29-2023 Office outpatient visit 25 minutes Shavonne Chowdary ENTERTAINMENT CENTRE MANAGER Work Phone: [facility] Comment on above: Benign hypertension (CMS/HCC) (Primary Dx); Morbid (severe) obesity due to excess calories (E66.01); Body mass index [BMI] 45.0-49.9, adult (Z68.42); Aortic aneurysm without rupture, unspecified portion of aorta (CMS/HCC); High cholesterol (CMS/HCC); SCOT (generalized anxiety disorder) (CMS/HCC); Screening for prostate cancer; Pre-diabetes; SALVATORE on CPAP; Mild persistent asthma with exacerbation (CMS/HCC); Lung nodule Start: 09-26-2023 ambulatory Javier Starkeyi ty:[facility] Start: 09-15-2023 End: 09-16-2023 ambulatory Shavonne Chowdary NEUROPSYCHOLOGY SERVICE DIRECTOR-SUPERVISOR CAR INSTALLATIONS Facility:[facility] Start: 09-05-2023 End: 09-06-2023 ambulatory Shavonne Sangita Aichholmaame NEUROPSYCHOLOGY SERVICE DIRECTOR-SUPERVISOR CAR INSTALLATIONS Facility:[facility] Start: 04-21-2023 Telephone encounter Rafael sandoval MD Work Phone: Cardiothoracic Comment on above: Referral Information Start: 03-28-2023 End: 03-28-2023 Patient encounter procedure Javier DOWNS [facility] Start: 03-17-2023 End: 03-18-2023 ambulatory Shavonne Sangita Alanhginette NEUROPSYCHOLOGY SERVICE DIRECTOR-SUPERVISOR CAR INSTALLATIONS Facility:[facility] Start: 03-07-2023 End: 03-07-2023 Patient encounter procedure Javier DOWNS [facility] Start: 01-18-2023 End: 01-18-2023 ambulatory DANIELE DRISCOLL . Facility:[facility] Start: 01-13-2023 End: 01-14-2023 ambulatory SUPERVISOR CAR INSTALLATIONS SHAVONNE KEELEYHGINETTE Facility:[facility] Start: 01-03-2023 End: 01-03-2023 ambulatory Carrie Staples Other [employer] Other Start: 01-03-2023 Office outpatient vi sit 15 minutes Carrie Staples [facility] Start: 09-01-2022 End: 09-02-[address] DOCTOR LOVE Facility:[facility] Start: 07-28-2022 End: 07-29-2022 ambulatory SUPERVISOR CAR INSTALLATIONS SHAVONNE KEELEYHGINETTE Facility:[facility] Start: 07-05-2022 End: 07-06-[address] DARIN CHAPA Facility:[facility] Start: 06-29-2022 End: 06-30-2022 ambulatory SUPERVISOR CAR INSTALLATIONS SHAVONNE AICHAIDEZ Facility:[facility] Start: 03-03-2022 End: 03-04-2022 ambulatory SUPERVISOR CAR INSTALLATIONS SHAVONNE AICHHOLZ Facility:[facility] Start: 02-23-2022 End: 02-24-2022 ambulatory SUPERVISOR CAR INSTALLATIONS SHAVONNE AICHAIDEZ Facility:[facility] Start: 02-14-2020 End: 02-14-2020 Emergency department patient visit JOSHUA PEREZ [facility] Start: 02-14-2020 End: 02-14-2020 Emergency department patient visit Joshua Perez Work Phone: [facility] ED Comment on above: Dyspnea and respirat ory abnormalities (Primary Dx) Start: 08-28-2014 End: 08-28-2014 Telephone encounter Italo Pruitt MD Work Phone: Orthopaedics Comment on above: Surgical Followup Procedures Date Procedure Procedure Detail Performing Clinician Start: 06-29-2022 PSA screening SUPERVISOR CAR INSTALLATIONS SHAVONNE CHOWDARY Comment on above: Performed By: #### P [facility] ####[facility] [id number] [place] [address]DrSohail Beck Start: 02-14-2020 Radiologic exam ches t 2 views JOSHUA THOMASKATRIN Start: 02-14-2020 Radiologic exam ches t 2 views Joshua Fanny Perez Work Phone: Cooled radiofrequenc y ablation of nerve using ultrasonographic guidance Javier DOWNS Hydrocelectomy Javier Coy Knee region structur e (body structure) Javier DOWNS Large intestine excision Ligia DONWS Shoulder region stru cture (body structure) Javier DOWNS Plan of Treatment Date Care Activity Detail Author Start: 12-28-2023 End: 12-28-2023 Patient encounter procedure 12/28/2023 1:00 PM EDT Office Visit [facility] [address] [place] [id number] Shavonne Chowdary NP [address] [place] [id number] [facility] Start: 09-29-2023 End: 09-29-2024 CBC W Auto Differential panel - Blood CBC and differential Lab Routine Benign hypertension (CMS/HCC) Expected: 09/29/2023 (Approximate), Expires: 09/29/2024 [facility] Work Phone: Comment on above: Expected: 09/29/2023 (Approximate), Expires: 09/29/2024 Start: 09-29-2023 End: 09-29-2024 Comprehensive metabolic 2000 panel - Serum or Plasma Comprehensive metabolic panel Lab Routine Pre-diabetes Expected: 09/29/2023 (Approximate), Expires: 09/29/2024 [facility] Comment on above: Expected: 09/29/2023 (Approximate), Expires: 09/29/2024 Start: 09-29-2023 End: 09-29-2024 Hemoglobin A1c measurement Hemoglobin A1c Lab Routine Pre-diabetes Expected: 09/29/2023 (Approximate), Expires: 09/29/2024 [facility] Comment on above: Expected: 09/29/2023 (Approximate), Expires: 09/29/2024 Start: 09-29-2023 End: 09-29-2024 Lipid 1996 panel - Serum or Plasma Lipid panel Lab Routine High cholesterol (CMS/HCC) Expected: 09/29/2023 (Approximate), Expires: 09/29/2024 [facility] Comment on above: Expected: 09/29/2023 (Approximate), Expires: 09/29/2024 Start: 09-29-2023 End: 09-29-2024 Microalbumin/Creatinine panel in random Urine Microalbumin / creatinine, urine ratio Lab Routine Benign hypertension (CMS/HCC) Pre-diabetes Expected: 09/29/2023 (Approximate), Expires: 09/29/2024 [facility] Comment on above: Expected: 09/29/2023 (Approximate), Expires: 09/29/2024 Start: 09-29-2023 End: 09-29-2024 Prostate specific Ag [Mass/volume] in Serum or Plasma PSA Lab Routine Screening for prostate cancer Expected: 09/29/2023 (Approximate), Expires: 09/29/2024 [facility] Comment on above: Expected: 09/29/2023 (Approximate), Expires: 09/29/2024 Start: 09-29-2023 End: 09-29-2024 Urinalysis complete panel - Urine Urinalysis with reflex microscopic (clean catch) Lab Routine Benign hypertension (CMS/HCC) Pre-diabetes Expected: 09/29/2023 (Approximate), Expires: 09/29/2024 [facility] Comment on above: Expected: 09/29/2023 (Approximate), Expires: 09/29/2024 Start: 04-22-2023 Influenza vaccination Influenza Vacc ine (#1) [facility] Start: 08-22-2022 Depression Assessment Depression Ass essment [facility] Start: 2021 Prostate Cancer Screening Discussion Prostate Cancer Screening Discussion [facility] Start: 04-22-2021 Influenza vaccination INFLUENZ A (Season Ended) [facility] Start: 04-22-2020 Influenza vaccination Flu vacc ine (Season Ended) [place], [place] Start: 2016 Screening for malign ant neoplasm of colon [place] Start: 2016 Shingles Vaccine (1 of 2) Shingles Vaccine (1 of 2) [place] Start: 2016 SHINGRIX VACCINE (1 of 2) SHINGRIX VACCINE (1 of 2) [facility] Start: 2011 Cologuard (FIT-DNA) Cologuard (FIT-D NA) [facility] Start: 2011 Colonoscopy Colonoscopy [facility] Start: 2011 Colorectal Cancer Screening Colorectal Cancer Screening [facility] Start: [address] COLONOGRAPHY [facility] Start: 2011 DIABETES SCREEN DIABETES SCREEN [facility] Start: 2011 Diabetes Screening Diabetes Screenin g [facility] Start: 2011 Fecal Occult Blood Fecal Occult Bloo d [facility] Start: 2011 SIGMOIDOSCOPY SIGMOIDOSCOPY [facility] Start: 2006 Lipid panel Lipid screen [place], [place] Start: 2001 Lipid 1996 panel - S dayanara or Plasma Lipid Screening [facility] Start: 2001 LIPID SCREEN LIPID SCREEN [facility] Start: 1985 DTaP/Tdap/Td vaccine (1 - Tdap) DTaP/Tdap/Td vaccine (1 - Tdap) [place] Start: 1985 Urine microalbumin profile [facility] Start: 1984 HEPATITIS C SCREENING HEPATITIS C SC GURJIT [facility] Start: 1984 HIV SCREENING HIV SCREENING [facility] Start: 1981 HIV screening HIV screen Bettina chandrika [place], [place] Start: 1978 Adult depression screening assessment DEPRESSION SCREENING [facility] Start: 1966 Covid-19 Vaccine (#1) Covid-19 Vacci ne (#1) [facility] Start: 1966 Creatinine measurement Creatinine mo nitoring [place], [place] Start: 1966 Hepatitis B Vaccine (1 of 3 - 3-dose series) Hepatitis B Vaccine (1 of 3 - 3-dose series) [facility] Start: 1966 Potassium monitoring Potassium monit [place], [place] Immunizations Immunization Date Immunization Notes Care Provider Claire jimenez 07-02-2020 influenza virus vaccine, unspecified formulation Javier NEVAEH [facility] Payers Date Payer Category Payer Unknown [id number] 2014 Unknown BCBS BCBS OUT OF STATE xxxxxxxxxxxx 2014-Present [address] [place] [address] xxxxxxxxxxxx [id number] 2004 Unknown [id number] .[id number] 2004 Unknown [id number]. 1.13.159.2.7.3 .[id number] 1966 Unknown [id number] 2.16.840.1.870077.3.579.2.173 1966 Unknown [id number] 2.16.840.1.048765.3.579.2.593 1966 Unknown [id number] 2.16.840.1.314308.3.579.2.593 1966 Unknown [id number] 2.16.840.1.996803.3.579.2.593 1966 Unknown [id number] 2.16.840.1.011068.3.579.2.593 1966 Unknown [id number] 2.16.840.1.516502.3.579.2.593 1966 Unknown [id number] 2.16.840.1.665479.3.579.2.593 1966 Unknown [id number] 2.16.840.1.136822.3.579.2.593 1966 Unknown [id number] 2.16.840.1.463608.3.579.2.593 1966 Unknown [id number] 2.16.840.1.828819.3.579.2.196 1966 Unknown [id number] 2.16.840.1.176161.3.579.2.196 1966 Unknown [id number] 2.16.840.1.575365.3.579.2.196 1966 Unknown [id number] 2.16.840.1.227735.3.579.2.196 1966 Unknown [id number] 2.16.840.1.569094.3.579.2.196 1966 Unknown [id number] 2.16.840.1.875669.3.579.2.125 9 1966 Unknown [id number] 2.16.840.1.465652.3.579.2.125 9 1966 Unknown [id number] 2.16.840.1.961080.3.579.2.125 9 1966 Unknown [id number] 2.16.840.1.355778.3.579.2.727 1966 Unknown [id number] 2.16.840.1.043816.3.579.2.727 1966 Unknown [id number] 2.16.840.1.899988.3.579.2.727 1966 Unknown [id number] 2.16.840.1.328268.3.579.2.727 1966 Unknown [id number] 2.16.840.1.563944.3.579.2.727 1959 Unknown [id number] Social History Date Type Detail Facility Start: 02-14-2020 End: 02-21-2024 Tobacco smoking status NHIS Former smoker [facility] History of tobacco use Cigarette Smoker M [place], [place] Start: 1966 Sex Assigned At Not on file [place], [place] Exposure to SARS-CoV -2 (event) Unable to assess [place], [place] Start: 07-30-2014 Tobacco smoking stat [facility] Current every day smoker [facility] Start: 07-30-2014 End: 09-29-2023 Cigarettes smoked current (pack per day) - Reported [facility] Start: 07-30-2014 Tobacco use and exposure Never used [facility] Start: 07-30-2014 End: 09-29-2023 Alcohol intake Current drinker of alcohol (finding) [facility] Start: 07-30-2014 [facility] Start: 08-24-2023 End: 09-29-2023 Sex Assigned At [facility] Tobacco smoking status Never [facility] History of tobacco use Current smoker [facility] Start: 09-27-2023 Alcohol Comment monthly or les s, caffeine more than 4 cups per day [facility] Within the last year , have you been afraid of your partner or ex-partner? No [facility] Do you belong to any clubs or organizations such as orthodoxy groups, unions, fraternal or athletic groups, or school groups? Yes [...] To some extent [facility] (I/We) worried carson er (my/our) food would run out before (I/we) got money to buy more. Never true [facility] Functional Status Date Assessment Result Facility 02-21-2024 Functional Status N/A [facility] 12-05-2023 Functional Status N/A [facility] 03-28-2023 Functional Status N/A [facility] 03-07-2023 Functional Status N/A [facility] Clinical Notes 08-28-2014 to 02-21-2024 Shavonne Chowdary, AJIT - 09/29/2023 1:36 PM ESTShavonne Chowdary, ENTERTAINMENT CENTRE MANAGER - 09/29/2023 1:31 PM ESTMariamsa Epi, ENTERTAINMENT CENTRE MANAGER - 09/29/2023 1:30 PM ESTLisa Epi, ENTERTAINMENT CENTRE MANAGER - 09/29/2023 1:30 PM EST Note Date [...] therapy. Follow these instructions at home: Take eukj-inx-ozyqjas and prescription medicines only as told by [...] provider. Document Revised: 04/09/2021 Document Reviewed: 04/09/2021 [employer] Patient Education 2022 [email or web address]. 02/21/2024 12:25:41 Benign Prostatic Hyperplasia Benign Prostatic [...] urethra. Follow these instructions at home: Take sggt-oeo-cvuggrf and prescription medicines only as told by [...] provider. Document Revised: 02/24/2022 Document Reviewed: 02/24/2022 [employer] Patient Education 2022 [email or web address]. 02/21/2024 12:25:39 Erectile Dysfunction Erectile Dysfunction Erectile [...] Follow these instructions at home: Medicines Take ikcf-qse-wkrzxwi and prescription medicines only as told by [...] provider. Document Revised: 11/04/2021 Document Reviewed: 11/04/2021 [employer] Patient Education 2022 [employer] Follow Up Care 02/01/2024 11:50:53 With:NEVAEH HARKINS, Javier Jones, URL Address: [address] [place] [address] [place] [address]- When: Unknown Comments:Cystoscopy [facility] 02-21-2024 Evaluation + Plan note Diagnostic Tests PendingTestosterone Level Total 02/21/24 [facility] [place] 02-21-2024 Note Patient Education Urology Hypogonadism, Male [...] Follow these instructions at home: ? Take yfju-xxe-tvwuxhb and prescription medicines only as told by [...] provider. Document Revised: (more content not included)... [facility] 12-05-2023 Hospital Discharge instructions Follow Up Care 12/05/2023 15:08:17 With:NEVAEH HARKINS, Javier Jones, URL Address: [facility] [address] [place] [address]- [phone] When: Unknown [facility] [place] 12-05-2023 Hospital Discharge instructions Patient Education 12/05/2023 [...] Follow these instructions at home: Medicines Take oqjq-zib-ovesajc and prescription medicines only as told by [...] provider. Document Revised: 11/04/2021 Document Reviewed: 11/04/2021 [employer] Patient Education 2022 [email or web address]. Follow Up Care 09/27/2023 10:13:00 With:NEVAEH HARKINS, Javier Jones, URL Address: [facility] [address], [place] [address]- [phone] When: Unknown Comments:f/u for ICI teaching [facility] [place] 09-29-2023 History of Present illness Narrative Associated [...] nodule , is going to see a merchandise presentation associate, hx of 50 pack year smoking, quit [...] obesity and sedentary lifestyle. Past treatments include SOMAR inhibitors and diuretics. The current treatment provides significant improvement. SUBJECTIVE: MEDICATIONS: Current Outpatient Medications Medication Instructions amitriptyline (Elavil) 50 MG tablet 1 tablet, Oral, Nightly busPIRone (BUSPAR) 10 mg, Oral, 2 times daily cyclobenzaprine (Flexeril) 10 MG tablet 1 tablet, Oral, 2 times daily PRN fluticasone (Flonase) 50 MCG/ACT nasal spray 2 sprays, Each Nostril, Daily HYDROcodone-acetaminophen ([place]) 5-325 MG tablet 1 tablet, Oral, Every [...] aneurysm without rupture, unspecified portion of aorta ([facility]) 09/28/2023 Benign hypertension ([facility]) 09/28/2023 BPH associated with nocturia 09/28/2023 COVID-19 virus infection Diverticulitis DJD of right shoulder Erectile dysfunction of organic origin SCOT (generalized anxiety disorder) ([facility]) 08/18/2023 High cholesterol ([facility]) 09/28/2023 Insomnia Mild persistent asthma with exacerbation ([facility]) 09/28/2023 Controlled with singulair. Does not need rescue inhaler Morbid obesity with body mass index (BMI) of 40.0 to 44.9 in adult ([facility]) 09/28/2023 SALVATORE on CPAP 09/28/2023 Osteoarthritis 09/28/2023 [...] 09/28/2023 Spinal stenosis, lumbar 09/28/2023 Tortuous aorta ([facility] 09/28/2023 Ventral hernia 09/28/2023 3.9) ; Has had herniasX2 for a while. Slightly tender with lifting, but not too bthersome. Reducible, no nausea. Past Surgical History: Procedure Laterality Date ACHILLES TENDON SURGERY 2007 COLECTOMY 2008 Procedure:sigmoid colon resection;Disease:intestinal dz COLONOSCOPY 11/03/2016 Dr Amaro No polyps/scarring from diverticulitis. Has abdominal hernias KNEE SURGERY Right arthroscopy TESTICLE SURGERY Procedure:Testicular hydrocele 2013 TONGUE SURGERY 02/2013 removal of tongue lesion [...] 45.0-49.9, adult (Z68.42) documented in this encounter [facility] 05-04-2023 Miscellaneous Notes I have called and discussed with Marcel Brown recommendations which are there is no indication for surgery. He should continue to follow up with his enrobing machine corder with yearly echo and CTA when aorta enlarged close to 5 cm. Also, blood pressure control is essential to keep aorta size stable. He verbalized understanding Oksana Spear RN diagnosis: aorta 4.1 cm on echo history: obesity, chronic back pain, anxiety, asthma, HTN, SALVATORE, Patient has been communicating via Dr. Shaikh Liang's office. Ros[place] nurse [phone] Diagnosis: aneurysm All records are in Epic Left a VM. Need: explain the process and let patient know that I am in contact with his Dr's office trying to get all his records. Currently waiting for CT images. documented in this encounter [facility] 03-28-2023 Hospital Discharge instructions Patient Education 03/28/2023 [...] Follow these instructions at home: Medicines Take tsmd-diq-eghmcpr and prescription medicines only as told by [...] provider. Document Revised: 11/04/2021 Document Reviewed: 11/04/2021 [employer] Patient Education 2022 [email or web address]. Follow Up Care 03/07/2023 10:38:37 With:NEVAEH HARKINS, Javier Jones, URL Address: [facility] [address] [place] [phone] When:Within 6 Month(s) Comments:T lynda [facility] [place] 03-17-2023 Note Chief Complaint Patient is being [...] 3 grown children. He lives independently in [place]. Patient reports daily nicotine use via nicotine lozenges. He also reports daily recreational marijuana use. Patient otherwise denies recreational drugs and denies alcohol. 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 He states no [place] of Workmen's Compensation or third-republican insurance claims [...] Moist, no ev (more content not included)... [facility] 07-17-2023 Hospital Discharge instructions Patient Education 03/07/2023 10:28:28 [...] provider gives to you. In general: Take [id number] and prescription medicines only as told by [...] provider. Document Revised: 02/02/2021 Document Reviewed: 02/02/2021 [employer] Patient Education 2022 [employer]. Follow Up Care 02/18/2023 09:13:02 With:NEVAEH HARKINS, Javier Jones, URL Address: [facility] [address] , [place] [address]- [phone] When: Unknown Comments:CT scan and PSA [facility] 01-13-2023 Note PROCEDURE: XR HIP RT 2 3V WO PELVIS HISTORY: Pain in right hip joint ; no known injury COMPARISON: None. FINDINGS: BONES:No fracture, acute abnormality, or significant arthropathy. SOFT TISSUES:No visible soft tissue swelling. EFFUSION:None visible. OTHER: Negative. IMPRESSION: 1. No acute bone abnormality or significant degenerative joint disease. Electronically authenticated by: LISSETTE MCCAIN Date: 2023-01-13 10:45 [facility] 01-03-2023 Evaluation note Encounter Date Diagnosis Assessment [...] with sciatica home care material was printed [employer] Other 12-07-2022 NotePROCEDURE: XR SHOULDER RT 2V [...] Electronically authenticated by: LISSETTE MCCAIN Date: 2022-07-28 13:47[facility]11-15-2022 NotePROCEDURE: XR ANKLE LT MIN 3 V, [...] Electronically authenticated by: DARIN CHAPA Date: 2022-07-06 07:39[facility]11-15-2022 NotePROCEDURE: XR ANKLE LT MIN 3 V, [...] Electronically authenticated by: DARIN CHAPA Date: 2022-07-06 07:39[facility]01-07-2015 Miscellaneous Notes* Telephone Encounter - Coco Steinberg [...] may contact [place] at their home # [phone] with questions/concerns, OK to leave a message [...] NIRALI MERIDA MA * Telephone Encounter - Jody WHALEY, Eunice - 08/28/2014 2:44 PM EST Patient's called to reschedule patients 09/02/[address] Pruitt. However, the next available is not until 09/16/14 and patient is to return to work on 09/13/14. Patient may be reached at [phone] to advise, it is ok to leave a message if no answer. documented in this encounterCommunity [facility] CenterEvaluation + Plan note Future Appointments Appointment Date:03/28/2023 11:15:00 AM Scheduled Provider:Javier DOWNS MD Location:[facility] Appointment Type:URO Office Visit Diagnostic Tests Pending * PSA Total 03/07/23 [facility] evaluation + Plan note Future Appointments Appointment Date:09/26/2023 09:15:00 AM Scheduled Provider:Javier DOWNS MD Location:[facility] Appointment Type:URO Office Visit Diagnostic Tests Pending * Testosterone Level Total 03/28/23 [facility] evaluation + Plan note Future Appointments Appointment Date:01/23/2024 11:30:00 AM Scheduled Provider:Javier DOWNS MD Location:[facility] Appointment Type:URO Office Visit [facility] evaluation note* Diagnosis Benign hypertension (CMS/HCC)- [...] Hospitalization History see above Hospitalization History diverticulitis [facility] Other Hospital course Narrative No data available for this section [facility] progress note No data available for this section [facility] Discharge Instructions * Attachments The following attachments cannot be sent through Care Everywhere. * SOB (Shortness of Breath) ([place]) documented in this encounter Assessments Diagnosis Dyspnea and respiratory abnormalities Other dyspnea and respiratory abnormality Advance Directives No Advanced Directives Records FoundDocuments on File Type Date Recorded Patient [employer] Expl anation Advance Directives and Living Will Power of Architecture Internship Summary Purpose Family History No Family History [...] Pt states he was just d/c from [facility] and they told him basically that [...] DATE CREATED AUTHOR AUTHOR'S ORGANIZ ATION 01/28/2023 [facility] DATE CREATED AUTHOR AUTHOR'S ORGANIZ ATION 05/08/2023 [facility] DATE CREATED AUTHOR AUTHOR'S ORGANIZ ATION 09/16/2023 [facility] DATE CREATED AUTHOR AUTHOR'S ORGANIZ ATION 02/22/2024 [facility] DATE CREATED AUTHOR AUTHOR'S ORGANIZ ATION 05/06/2024 [facility] Source Comments (unrecognize d section and content) In the event this informatio n is protected by the Federal Confidentiality of Alcohol and Drug Abuse Patient Records regulations: The Federal rules restrict any use of the information to criminally investigate or prosecute any alcohol or drug abuse patient.[facility] Medical CenterIn the event this information is protected by the Federal Confidentiality of Alcohol and Drug Abuse Patient Records regulations: The Federal rules restrict any use of the information to criminally investigate or prosecute any alcohol or drug abuse patient.[facility] Patient Care team informatio n (unrecognized section and content) Telephone Maintainer Relationship Specialty Start Date End Date FayeRom Jr. PCP - General 02/23/05 Rafeal Brown MD [address] [place] [address] Surgeon Cardiac Surg 05/04/23 05/05/23 Telephone Maintainer Relationship Specialty Start Date End Date Parth Hdz MD PCP - General Family Medicine 02/17/23 Telephone Maintainer Relationship Specialty Start Date End Date Parth [...] BE BASED ON THE PRIMARY CLINICAL RECORDS. [facility] [employer] [facility]. provides no warranty or guarantee of the accuracy or completeness of information in this document.
[2024-06-20 11:04] LABS: Hematocrit 42.8 % (42.0-54.0); Hemoglobin 14.5 g/dL (14.0-18.0)
[2024-06-20 12:04] LABS: Alanine Aminotransferase 26 U/L (16-63); Albumin Globulin Ratio 1.1; Albumin Level 3.3 g/dL (3.4-5.0); Alkaline Phosphatase 58 U/L (46-116); Aspartate Amino Transferase 17 U/L (15-37); Bilirubin Direct 0.1 mg/dL (0.0-0.2); Bilirubin Total 0.5 mg/dL (0.2-1.0); Chol HDL Ratio 3.7; Cholesterol 152 mg/dL (<=200); HDL Cholesterol 41 mg/dL (40-60); LDL Cholesterol Calculated 97.4 mg/dL; Total Protein 6.3 g/dL (6.4-8.2); Triglycerides 68 mg/dL (<=150); VLDL CHOLESTEROL 13.6 mg/dL
[2024-06-20 12:21] LABS: Prostate Specific Antigen Dx 0.89 ng/mL (<=4.00)
[2024-06-21 04:07] LABS: Testosterone 494 ng/dL (264-916)
== END 2024-06-20 10:10 | disposition home or self-care (01) ==
LOC: LAB 10:12
PROVIDERS: PCP Nurse Practitioner; Visit Provider Nurse Practitioner Family
DX: E29.1 Testicular hypofunction (principal)
CPT/HCPCS: 36415; 80061; 80076; 84153; 84403; 85014; 85018

== ENCOUNTER 2024-07-11 13:35 | Outpatient (OUT) | payer BC, SELFPAY ==
--- OUTSIDE RECORDS SUMMARY | 2024-07-11 13:47 | XMS_ITS | CCD ---
Author Organization [facility] Informat ion Partnership [facility] Care Team Providers Care Locker Room Attendant Name Role Phone Es Love Primary Care Provider JOSHUA PEREZ Attending Unavailable ES LOVE Primary Care Unavailable Rom Faye Jr. Primary Care Provider Unava Carrie Araujo Unavailable AICHHOLZ, BELT OPERATOR SHAVONNE Consulting Unavailable AICHHOLZ, BELT OPERATOR SHAVONNE Primary Care Unavailable AICHHOLZ, BELT OPERATOR SHAVONNE Admitting Unavailable AICHHOLZ, BELT OPERATOR SHAVONNE Attending Unavailable AICHHOLZ, BELT OPERATOR SHAVONNE Primary Care Unavailable MISC, DR MARIE Consulting Unavailable MISC, DR MARIE Admitting Unavailable MISC, DR MARIE Attending Unavailable AICHHOLZ, BELT OPERATOR SHAVONNE Referring Unavailable AICHHOLZ, BELT OPERATOR SHAVONNE Primary Care Unavailable MISC, DR MARIE Consulting Unavailable MISC, DR MARIE Admitting Unavailable MISC, DR MARIE Attending Unavailable AICHHOLZ, BELT OPERATOR SHAVONNE Attending Unavailable AICHHOLZ, BELT OPERATOR SHAVONNE Consulting Unavailable AICHHOLZ, BELT OPERATOR SHAVONNE Primary Care Unavailable AICHHOLZ, BELT OPERATOR SHAVONNE Admitting Unavailable DR LISSETTE MCCAIN Consulting Unavailable MISC, DR MARIE Attending Unavailable MISC, DR MARIE Consulting Unavailable MISC, DR MARIE Admitting Unavailable AICHHOLZ, BELT OPERATOR SHAVONNE Primary Care Unavailable DANIELE MOLINA Consulting UnavailROMA Modi Admitting Unavailable ROMA CHAHAL Attending Unavailable AICHHOLZ, BELT OPERATOR SHAVONNE Primary Care Unavailable AICHHOLZ, BELT OPERATOR SHAVONNE Primary Care Unavailable DR LISSETTE MCCAIN Consulting Unavailable NATHALY, FLORES H Admitting Unavailable RADHA LIANGIKH H Attending Unavailable NATHALY, FLORES H Consulting Unavailable DR DARIN CHAPA V Consulting Unavailable AICHHOLZ, BELT OPERATOR SHAVONNE Primary Care Unavailable AICHHOLZ, BELT OPERATOR SHAVONNE Admitting Unavailable AICHHOLZ, BELT OPERATOR SHAVONNE Attending Unavailable AICHHOLZ, BELT OPERATOR SHAVONNE Consulting Unavailable AICHHOLZ, SHAVONNE J Primary Care Physician Rom Faye Jr. Primary Care Provider Beryl Brown MD, Rafael Unavailable Ickes PA-C, Barbie Bello Attending Unav ailable Aichholz PIPELINE SUPERINTENDENT DIVISION-BELT OPERATOR, Shavonne Quesada Primary Care Unava ilable Aichholz PIPELINE SUPERINTENDENT DIVISION-BELT OPERATOR, Shavonne Quesada Referring Unava ilable Aichholz PIPELINE SUPERINTENDENT DIVISION-BELT OPERATOR, Shavonne Quesada Primary Care Unava ilable Ickes PA-C, Barbie Bello Attending Unav ailable Aichholz PIPELINE SUPERINTENDENT DIVISION-BELT OPERATOR, Shavonne Quesada Primary Care Unava ilable Ickes PA-C, Barbie Bello Attending Unav ailable Aichholz PIPELINE SUPERINTENDENT DIVISION-BELT OPERATOR, Shavonne Quesada Primary Care Unava ilable Aichholz PIPELINE SUPERINTENDENT DIVISION-BELT OPERATOR, Shavonne Quesada Referring Unava ilable Claritza PIPELINE SUPERINTENDENT DIVISION-BELT OPERATOR, Manuel Mcintosh Attending Unav ailable Aichholz PIPELINE SUPERINTENDENT DIVISION-BELT OPERATOR, Shavonne Quesada Primary Care Unava ilable Claritza PIPELINE SUPERINTENDENT DIVISION-BELT OPERATOR, Manuel Mcintosh Attending Unav ailable Wilder HARKINS, Parth Primary Care Provider Wilder HARKINS, Parth Primary Care Provider [phone] EPI, SHAVONNE Attending Unavailable SHAIKH LIANG Attending Unavailable AICHHOLZ, SHAVONNE Attending Unavailable AICHHOLZ, SHAVONNE Attending Unavailable Javier DOWNS Attending Unavailable OrzeWendi bloom Attending Unavailable OrzechWendi X Attending Unavailable Javier DOWNS Attending Unavailable Javier DOWNS Attending Unavailable Allergies Allergy Classification Reported Allergen(s) Allergy Type Date of Onset Reaction(s) Facility Opioid Agonists (2 sources) Meperidine Drug Allergy 06-10-20 14 Mental Status Change [facility] Penicillins (antibiotic) (1 source) Penicillins Drug Allergy 03-03-20 05 [facility] Work Phone: (12 sources) Meperidine; Translations: [meperidine] Drug Allergy 06-25-20 20 Hallucinations (finding), Hallucinations [place], [place] (18 sources) Morphine; Translations: [morphine] Drug Allergy 06-10-20 14 Hallucinations (finding), Mental Status Change [place], [place] (2 sources) Penicillins; Translations: [penicillins] Propensity to adverse reactions to drug 02-14-20 20 [place], [place] (8 sources) Penicillin; Translations: [penicillin] Drug Allergy Nausea and vomiting (disorder) [facility] (8 sources) Penicillin G Drug Allergy 08-24-19 24 GI intolerance [place] Other (3 sources) Meperidine; Translations: [Demerol] Drug Allergy 05-17-20 15 [facility] Repository (1 source) Morphine Drug Allergy 11-20-19 13 [facility] (1 source) Penicillins Drug allergy (disorder) 11-20-19 13 [facility] (1 source) Meperidine Drug Allergy 06-10-20 14 Mental Status Change [facility] (1 source) Penicillins Propensity to adverse reactions 03-03-20 05 [facility] Work Phone: (1 source) Morphine; Translations: [Morphine Sulfate] Drug Allergy [facility] Repository (1 source) opioid-like analgesics; Translations: [opioid-like analgesics] Propensity to adverse reactions to drug (disorder) [facility] Repository (7 sources) Meperidine Drug Allergy 08-24-19 24 [facility] Medications Current Medications Medication Drug Class(es) Dates Sig (Normalized) Sig (Original) acetaminophen 325 mg / HYDROcodone bitartrate 5 mg oral tablet (5 sources) Opioid Agonist Start: 01-24-2023 End: 09-29-2023 take 1 tablet by mouth once HYDROcodone-acetami nophen (Tofte) 5-325 MG tablet Take 1 tablet by mouth every 12 (twelve) hours if needed for moderate pain 0 01/24/2023 09/29/2023 Discontinued (Therapy completed) take 1 tablet by ashok every six hours as needed HYDROcodone-Acetaminophen (NORCO) 10-325 mg per tablet Take 1 tablet by mouth every 6 hours as needed. 0 Active Comment on above: Take 1 tablet by ashok th every 6 hours as needed. [id number] 200 actuat albuterol 0.09 mg/actuat metered dose inhaler (3 sources) beta2-Adrenergic Agonist Start: End: take 2 puff(s) by inhalation every six hours for wheezing albuterol HFA 90 mcg/act inhaler Indications: Mild persistent asthma with exacerbation (CMS/HCC) Inhale 2 puffs every 6 (six) hours if needed for wheezing or shortness of breath 18 g 06/26/2024 07/26/2024 Active ProAir HFA Not-T aking amitriptyline hydrochloride 50 mg oral tablet (15 sources) Tricyclic Antidepressant Start: 03-07-2023 End: 08-14-2024 take 1 tablet by mouth at bedtime amitriptyline (Elavil) 50 MG tablet Indications: Other intervertebral disc degeneration, lumbar region Take 1 tablet (50 mg) by mouth at bedtime 90 tablet 1 05/16/2024 06/26/2024 Discontinued (Therapy completed) Amitriptyline HC l Active take 1 tablet by mouth once nafisa y amitriptyline (ELAVIL) 25 MG tablet Take 25 mg by mouth nightly 0 Active busPIRone hydrochloride 10 mg oral tablet (11 sources) Start: 12-05-2023 End: 08-14-2024 take 1 tablet by mouth in the morning busPIRone (Buspar) 10 MG tablet Indications: SCOT (generalized anxiety disorder) (CMS/HCC) Take 1 tablet (10 mg) by mouth in the morning and 1 tablet (10 mg) before bedtime. 180 tablet 1 05/16/2024 08/14/2024 Active Start: 08-18-2023 take 1 tablet by ashok th in the morning busPIRone (Buspar) 10 MG tablet Indications: SCOT (generalized anxiety disorder) (CMS/HCC) Take 1 tablet (10 mg) by mouth in the morning and 1 tablet (10 mg) before bedtime. 60 tablet 2 08/18/2023 Active cyclobenzaprine hydrochloride 10 mg oral tablet (15 sources) Muscle Relaxant Start: 03-07-2023 take 1 tablet by mouth three times daily as needed for muscle spasms cyclobenzaprine 10 mg Tab 10 mg = 1 tab(s), Oral, TID, PRN for spasm, # 30 tab(s), Refills(s) 0 Start Date: 03/07/23 Status: Ordered take 1 tablet by ashok twice daily as needed for muscle spasms cyclobenzaprine (Flexeril) 10 MG tablet Take 1 tablet by mouth 2 (two) times a day as needed for muscle spasms Active Cyclobenzaprine HCl at bedtime Active fluticasone propionate 0.05 mg/actuat metered dose nasal spray (14 sources) Corticosteroid Start: 03-28-2024 take 2 spray(s) nasal route once daily fluticasone (Flonase) 50 MCG/ACT nasal spray Indications: Non-seasonal allergic rhinitis, unspecified trigger Administer 2 sprays into each nostril Daily 16 g 5 03/28/2024 Active Start: 09-28-2023 End: 10-28-2023 take 2 spray(s) nasal route in the morning fluticasone (Flonase) 50 MCG/ACT nasal spray Indications: Non-seasonal allergic rhinitis, unspecified trigger Administer 2 sprays into each nostril in the morning. 16 g 5 09/28/2023 10/28/2023 Active Start: 03-07-2023 fluticasone Na fortino 0.05 mg/inh [place] Refill(s) 0 Start Date: 03/07/23 Status: Ordered Fluticasone Prop ionate 50 MCG/ACT Nasal for 30 Days Active hydroCHLOROthiazide (2 sources) Thiazide Diuretic hydroCHLOROthi azide Active take 1 tablet by mouth once nafisa y hydroCHLOROthiazide (HYDRODIURIL) 25 MG tablet Take 25 mg by mouth daily 0 Active hydroCHLOROthiazide 12.5 mg / lisinopril 10 mg oral tablet (13 sources) Thiazide Diuretic, Angiotensin Converting Enzyme Inhibitor Start: 04-17-2024 End: 07-16-2024 take 1 tablet by mouth once daily lisinopril-hydroCHLOROthiazide 10-12.5 MG tablet Indications: Essential (primary) hypertension (CMS/HCC) Take 1 tablet by mouth Daily 90 tablet 1 04/17/2024 07/16/2024 Active Start: 03-07-2023 hydrochlorothi azide-lisinopril 12.5 mg-10 mg Tab Refill(s) 0 Start Date: 03/07/23 Status: Ordered hydroxychloroquine sulfate 200 mg oral tablet (4 sources) Antimalarial, Antirheumatic Agent Start: 04-10-2024 take 1 tablet by mouth in the morning hydroxychloroquine (Plaquenil) 200 MG tablet Take 1 tablet by mouth in the morning and 1 tablet before bedtime. 04/10/2024 Active lisinopril 10 mg oral tablet (1 source) Angiotensin Converting Enzyme Inhibitor take 1 tablet by mouth every twenty-four hours Lisinopril 10 MG 1 tablet Orally Once a day Active 24 hr mirabegron 50 mg extended release oral tablet (8 sources) beta3-Adrenergic Agonist Start: 12-05-2023 End: 06-26-2024 take 1 tablet by mouth once daily Myrbetriq 50 mg oral tablet, extended release 50 mg = 1 tab(s), Oral, Daily, # 30 tab(s), Refills(s) 11, Pharmacy: [facility], 178, cm, 12/05/23 13:51:00 EDT, Height/Length Dosing, 143, kg, 12/05/23 13:51:00 EDT, Weight Dosing Start Date: 12/05/23 Status: Ordered montelukast 10 mg oral tablet (15 sources) Leukotriene Receptor Antagonist Start: 03-07-2023 montelukast 10 mg Tab Refills(s) 0 Start Date: 03/07/23 Status: Ordered Montelukast Sodi um Active nabumetone 500 mg oral tablet (14 sources) Nonsteroidal Anti-inflammatory Drug Start: 12-05-2023 take 2 tablets by mouth in the morning nabumetone (Relafen) 500 MG tablet Take 1,000 mg by mouth in the morning and 1,000 mg before bedtime. 12/05/2023 Active Start: 03-07-2023 nabumetone 750 mg Tab Refills(s) 0 Start Date: 03/07/23 Status: Ordered Nabumetone 750 M G Oral for 30 Days Active OTC Prostate Supplement (4 sources) Start: 12-05-2023 OTC Prostate S upplement OTC Prostate Supplement Start Date: 12/05/23 Status: Ordered predniSONE 10 mg oral tablet (5 sources) Start: 03-12-2024 End: 06-26-2024 predniSONE (Deltasone) 10 MG tablet Indications: Bilateral hand pain 2 pills three times daily for 3 days, then 2 pills twice a day for 3 days, then 1 pill twice a day for 3 days, then 1 pill daily for 3 days take with food 39 tablet 03/12/2024 06/26/2024 Discontinued (Therapy completed) Start: 01-03-2023 take 1 tablet by ashok th every twelve hours predniSONE 20 MG 1 tablet Orally bid for 5 day(s) December, Active pregabalin 50 mg oral capsule (13 sources) Start: 04-27-2024 End: 06-26-2024 take 1 capsule by mouth in the morning pregabalin (Lyrica) 50 MG capsule Indications: Other intervertebral disc degeneration, lumbar region Take 1 capsule (50 mg) by mouth in the morning and 1 capsule (50 mg) before bedtime. 60 capsule 5 04/27/2024 06/26/2024 Discontinued (Therapy completed) Start: 08-02-2023 take 1 capsule by mo [facility] in the morning pregabalin (Lyrica) 50 MG [...] intercourse) 0 10/31/2022 09/29/2023 Discontinued (Therapy completed) tadalafil 5 mg oral tablet (7 sources) Phosphodiesterase 5 Inhibitor Start: 06-26-2024 take 1 tablet by mouth once daily Cialis 5 mg oral tablet 5 mg = 1 tab(s), Oral, Daily, # 30 tab(s), Refills(s) 11, Pharmacy: [id number], 178, cm, 06/26/24 12:16:00 EST, Height/Length Dosing, 135, kg, 06/26/24 12:16:00 EST, Weight Dosing Start Date: 06/26/24 Status: Ordered Start: 02-21-2024 take 1 tablet by ashok th every twenty-four hours as needed tadalafil (Cialis) 10 MG tablet Take 10 mg by mouth Daily as needed for erectile dysfunction 02/21/2024 Active Start: 02-21-2024 take 1 tablet by ashok th every hour as needed, then take 2 tablets by mouth every twenty-four hours as needed tadalafil 10 mg Tab 10 mg = 1 tab(s), Oral, As Directed, PRN for erectile dysfunction, take 1 tab by mouth at least 1 hr prior to sexual activity, DO NOT exceed 20 mg in 24 hr period, # 30 tab(s), Refills(s) 3, Pharmacy: [id number], 178, cm, 02/21/24 9:33:00 EDT, Height/Length Dosing, 136.4, kg, 02/21/24 9:33:00 EDT, Weight Dosing Start Date: 02/21/24 Status: Ordered tamsulosin hydrochloride 0.4 mg oral capsule (11 sources) alpha-Adrenergic Jameel Start: 08-03-2023 take 1 capsule by mouth every twenty-four hours in the morning tamsulosin (Flomax) 0.4 MG 24 hr capsule Take 1 capsule by mouth in the morning. 0 08/03/2023 Active Start: 03-28-2023 End: 06-26-2024 take 1 capsule by mouth once daily tamsulosin (Flomax) 0.4 MG 24 hr capsule Take 0.4 mg by mouth Daily 02/25/2024 06/26/2024 Discontinued (Therapy completed) 60 actuat testosterone 20.25 mg/actuat topical gel (4 sources) Androgen Start: 05-27-2024 Testosterone 1 .62 % gel apply 2 (TWO) pumps topically EVERY MORNING 05/27/2024 Active Start: 04-19-2024 AndroGel Pump 20.25 mg/1.25 g (1.62%) transdermal gel = 2 pump, Topical, qAM, # 75 gram, Refills(s) 5, Pharmacy: [facility], 178, cm, 02/21/24 9:33:00 EDT, Height/Length Dosing, 136.4, kg, 02/21/24 9:33:00 EDT, Weight Dosing Start Date: 04/19/24 Status: Ordered Completed/Discontinued Medications Medication Drug Class(es) Dates Sig (Normalized) Sig (Original) CPAP (2 sources) CPAP USE WHEN SLEEPING [...] 06-03-2014 Depo-Medrol 80 mg May, 80 mg Toradol 30 mg/ml (1 source) Start: 01-03-2023 Toradol 30 mg/ml December, 30 mg triamcinolone acetonide 40 mg/ml injectable suspension (1 source) Corticosteroid Start: 01-03-2023 Kenalog-40 December, 40 mg Wrist Splint - (1 source) Start: 05-14-2020 Wrist Splint - as directed Apr, Not-Taking Problems Active Problems Problem Classification Problem Date Documented Da te Episodic/Chronic Abdominal hernia (9 sources) Hernia of anterior abdominal wall; Translations: [Ventral hernia without obstruction or gangrene] Onset: 09-28-2023 09-28-2023 Episodic Anxiety disorders (11 sources) Generalized anxiety disorder; Translations: [Generalized anxiety disorder] Onset: 08-18-2023 08-18-2023 Chronic Aortic; peripheral; and visceral artery aneurysms (13 sources) Aortic aneurysm; Translations: [Aortic aneurysm of unspecified site, without rupture] Onset: 09-28-2023 09-28-2023 Chronic Asthma (11 sources) Exacerbation of mild persistent asthma; Translations: [Mild persistent asthma with (acute) exacerbation] Onset: 09-28-2023 09-28-2023 Chronic Chronic obstructive pulmonary disease and bronchiectasis (2 sources) Acute exacerbation of chronic obstructive airways disease; Translations: [Chronic obstructive pulmonary disease with (acute) exacerbation] Chronic Disorders of lipid metabolism (12 sources) Hypercholesterolemi a; Translations: [Pure hypercholesterolemi a, unspecified] Onset: 09-28-2023 Resolved: 06-26-2024 09-28-2023 Chronic Diverticulosis and diverticulitis (7 sources) Diverticulitis; Translations: [Diverticulitis of intestine, part unspecified, without perforation or abscess without bleeding] Onset: 09-29-2023 09-29-2023 Chronic Essential hypertension (20 sources) Essential (primary) hypertension; Translations: [Hypertensive disorder] Onset: 06-29-2022 Chronic Genitourinary symptoms and ill-defined conditions (8 sources) Urgent desire to urinate; Translations: [Urgency of urination] Onset: 12-05-2023 Episodic Hyperplasia of prostate (18 sources) Benign prostatic hypertrophy with outflow obstruction; Translations: [Benign prostatic hyperplasia with lower urinary tract symptoms] Onset: 03-07-2023 Chronic Immunizations and screening for infectious disease (4 sources) Needs influenza immunization; Translations: [Encounter for immunization] Onset: 06-26-2024 06-26-2024 Episodic Infective arthritis and osteomyelitis (except that caused by tuberculosis or sexually transmitted disease) (2 sources) Periostitis of ankle AND/OR foot; Translations: [Osteomyelitis, unspecified] Onset: 06-10-2014 06-10-2014 Chronic Osteoarthritis (20 sources) Arthritis of right knee; Translations: [Unilateral primary osteoarthritis, right knee] Onset: 07-15-2014 07-15-2014 Chronic Other circulatory disease (7 sources) Disorder of aorta; Translations: [Stricture of artery] Onset: 09-28-2023 09-28-2023 Chronic Other diseases of kidney and ureters (5 sources) Acquired renal cyst without neoplastic change; Translations: [Cyst of kidney, acquired] Onset: 03-07-2023 Episodic Other diseases of kidney and ureters (6 sources) Complex renal cyst 03-07-2023 Episodic Other diseases of kidney and ureters (11 sources) Cyst of kidney; Translations: [Cyst of kidney, acquired] Onset: 09-28-2023 09-28-2023 Episodic Other endocrine disorders (3 sources) Testicular hypofunction; Translations: [Testicular hypofunction] Onset: 03-28-2023 Chronic Other endocrine disorders (3 sources) Male hypogonadism 03-28-2023 Chronic Other lower respiratory disease (1 source) Dyspnea; Translations: [Dyspnea and respiratory abnormalities] Episodic Other male genital disorders (17 sources) Male erectile dysfunction, unspecified; Translations: [Erectile dysfunction] Onset: 03-07-2023 Chronic Other male genital disorders (7 sources) Secondary erectile dysfunction; Translations: [Male erectile [...] Chronic Other nutritional; endocrine; and metabolic disorders (11 sources) Body mass index 40+ - severely obese; Translations: [Morbid (severe) obesity due to excess calories] Onset: 09-28-2023 09-28-2023 Chronic Other nutritional; endocrine; and metabolic disorders (2 sources) Obesity caused by energy imbalance; Translations: [Morbid (severe) obesity due to excess calories] 09-29-2023 Chronic Other screening for suspected conditions (not mental disorders or infectious disease) (12 sources) Encounter for screening for malignant neoplasm of prostate; Translations: [Patient encounter status] Onset: 07-04-2022 09-29-2023 Episodic Other upper respiratory disease (7 sources) Allergic rhinitis; Translations: [Other allergic rhinitis] Onset: 09-28-2023 09-28-2023 Chronic Residual codes; unclassified (11 sources) Obstructive sleep apnea syndrome; Translations: [Obstructive sleep apnea (adult) (pediatric)] Onset: 09-28-2023 09-28-2023 Chronic Residual codes; unclassified (6 sources) Chronic back pain 03-07-2023 Episodic Residual codes; unclassified (6 sources) Sleep disorder 03-07-2023 Episodic Spondylosis; intervertebral disc disorders; other back problems (7 sources) Lumbosacral spondylosis without myelopathy; Translations: [Spondylosis without myelopathy or radiculopathy, lumbosacral region] Onset: 05-01-2018 09-28-2023 Chronic Sprains and strains (1 source) Strain of muscle, fascia and tendon of lower back, initial encounter Episodic Unclassified (2 sources) Patient encounter status 02-21-2024 Past or Other Problems Problem Classification Problem Date Documented Da te Episodic/Chronic Diabetes mellitus without complication (9 sources) Prediabetes; Translations: [Prediabetes] Onset: 09-29-2023 09-29-2023 Episodic Joint disorders and dislocations; trauma-related (2 sources) Tear of medial meniscus of knee; Translations: [Other tear of medial meniscus, current injury, unspecified knee, initial encounter] Onset: 07-15-2014 07-15-2014 Episodic Other aftercare (1 source) Other termite inspector (current) drug therapy; Translations: [OTH TECHNOLOGY SALES CONSULTANT CURRENT DRUG THERAPY] Onset: 09-08-2022 Episodic Other [...] [MYALGIA UNSPECIFIED SITE] Onset: 03-03-2022 Episodic Other connective tissue disease (7 sources) Full thickness rotator cuff tear; Translations: [Complete rotator cuff tear or rupture of unspecified shoulder, not specified as traumatic] Onset: 09-28-2023 09-28-2023 Episodic Other connective tissue disease (4 sources) Pain of bilateral hands; Translations: [Pain in right hand] Onset: 02-21-2024 02-21-2024 Episodic Other injuries and conditions due to external causes (2 sources) Common peroneal neuropathy; Translations: [Injury of peroneal nerve at lower leg level, unspecified leg, initial encounter] Onset: 06-10-2014 06-10-2014 Episodic Other lower respiratory disease (8 sources) Nodule of lung; Translations: [Solitary pulmonary nodule] Onset: 09-29-2023 09-29-2023 Episodic Other non-traumatic joint disorders (4 sources) Pain in right shoulder; Translations: [PAIN IN RIGHT SHOULDER] Onset: 07-28-2022 Episodic Other non-traumatic joint disorders (4 sources) Pain in left ankle and joints of left foot; Translations: [PAIN IN LEFT ANKLE] Onset: 07-05-2022 Episodic Residual codes; unclassified (7 sources) Insomnia; Translations: [Insomnia, unspecified] Onset: 09-29-2023 09-29-2023 Episodic Spondylosis; intervertebral disc disorders; other back problems (20 sources) Neurogenic claudication; Translations: [Spinal stenosis, lumbar region with neurogenic claudication] Onset: 06-12-2014 06-12-2014 Episodic Results Test Name Value Interpretation Reference Range Facility Reminderson 06-26-2024 Reminders Reminders From: Harriet Adames To: [facility] - Administrative; Sent: 06/26/2024 13:05:04 EST Show up: 07/22/2024 13:04:00 EST Subject: Ambulatory Reminder Due Date/Time: 09/25/2024 13:04:00 EST Reminder/Recall Patient needs scheduled with AO for a 3 month F/U with testosterone levels, due back in September 2024 [facility] ALL HGB HCTon 06-20-2024 Hematocrit (Bld) [Volume fraction] 42.8 % 42.0 - 54.0 % [facility] Hemoglobin (Bld) [Mass/Vol] 14.5 g/dL 14.0 - 18.0 g/dL [facility] Urology Office/Clinic Noteon 02-21-2024 Urology Office/Clinic Note [...] with voice recognition artificial intelligence software, specifically [employer], [employer]bris and or [employer]. Substitutions may have occurred due to the [...] Will order Local anesthesia. -Schedule cystoscopy Ordered: 42239 Measure Post Void residual urine and/or bladder [...] Urnls Dip Stick Auto w/o Microscopy POC 68463 2. Urgency of urination (R39.15: Urgency of [...] a lit (more content not included)... Normal [facility] Comment on above: Result Comment: Elec tronically Signed By: RENETTA Watts APRN, [place] X\.nikole\Date and Time Signed: 02/21/24 12:26 EDT Retail - Clinical Noteon Retail - Clinical Note [id number] [facility] 12-05-2023 Ambulatory Visit [...] Tab) fluticasone nasal (fluticasone Nasal 0.05 mg/inh [place]) hydrochlorothiazide-li sinopril (hydrochlorothiazide-l isinopril 12.5 mg-10 mg [...] Follow-Up Appointments Tuesday 11:30 AM EDT With: Javier DOWNS MD Where: [facility] Lab Reportson 12-05-2023 Lab Reports [id number] 0TIFF [facility] Patient Educationon 12-05-19 Patient Education Urology Erectile Dysfunction Erectile dysfunction [...] these instructions at home: Medicines ? Take hkwy-hlh-gbukhvc and prescription medicines only as told by [...] include cig (more content not included)... Normal [facility] Urology Office/Clinic Noteon 12-05-2023 Urology Office/Clinic [...] Javier Jones, [facility] [address] , [place] [id number] [phone] Additional Instructions: f/u for ICI teaching Patient Education Erectile Dysfunction I, Shira Limon, personally scribed for Dr. Downs on 12/05/2023 15:03:37. . Documentation recorded by the scribpolo, Shira Limon, accurately reflects the services(s) I [...] mg T (more content not included)... Normal [facility] Comment on above: Result Comment: Elec tronically Signed By: Javier DOWNS MD\.br\Date and Time Signed: 12/05/23 15:07 EDT\.br\Electronically Co-Signed By: Shira Limon\.br\Date and Time Co-Signed: 12/05/23 15:04 EDT .eGFRon 09-15-2023 GFR/1.73 sq M.predicted MDRD (S/P/Bld) [Vol rate/Area] mL/min/{1.73_m2} Normal >=60 [facility] Comment on above: Order Comment: Order added by Discern Rule. Result Comment: [facility] Laboratories have implemented the eGFR calculation approach [...] years Performed By: #### E GFR #### [facility] [address] [place] [address] CT Angio Chest Abd Pel w/ IV [...] findings as detailed above. Radiation Dose Estimate: CTDI(mGy):0.681920 / / / kVp:110.018224 / mAs:0.586225 / / / DLP(mGy-cm):4.422674Ta dy Part: Abdomen CTDI(mGy):2.103655 / / / kVp:110.454655 / mAs:40.607664 / / / DLP(mGy-cm):2.774730Av dy Part: Abdomen CTDI(mGy):19.594829 / / / kVp:110.897419 / mAs:40.668457 / / / DLP(mGy-cm):19.639662U tanya Part: Abdomen CTDI(mGy):9.180561 / / / kVp:110.503406 / mAs:161.215702 / / / DLP(mGy-cm):640.627181 Body Part: Abdomen Final Dictated by: Alonso Padgett MD Dictated DT/TM: 09.15.2023 12:28 pm Signed by: Dayron HARKINS, Alonso Austin Signed (Electronic Signature): 09.15.2023 1:34 pm (If Report Is Signed, Electronically Signed in Other Vendor System) Normal [facility] POC Creatinine Von POC Crea iStat Venous 1.0 mg/dL Normal 0.6-1.3 [facility] Comment on above: Performed By: #### C D:[id number] #### [facility] [address] [place], [place] [id number] Cardiovascular Surgery Offic e/ClinicNoteon 09-05-2023 Cardiovascular Surgery Office/ClinicNote Chief Complaint Aneurysm History of Present Illness Marcel is a 58-year-old gentleman with a history of chronic back issues. Recently had x-ray and imaging of his spine which showed tortuosity of the aorta. He has been referred to our office for this reason. He has had previous echocardiogram at the [facility] which did showed dilation of the ascending [...] aorta. Echocardiogram from March of last year ([facility]) shows 4.1 cm dilated aortic root and [...] Daily montelukast (more content not included)... Normal [facility] 04-21-2023 [facility] Telephone ([facility]) MARCEL WAHL ([id number]) 1965 M Date Time Provider Department 04/21/23 RAFAEL BROWN [facility] During your visit today, we recorded the following information about you: Susan Simon 04/21/2023 3:40 PM Signed Left a . Need: explain the process and let patient know that I am in contact with his Dr's office trying to get all his records. Currently waiting for CT images. Susan Simon 05/04/2023 2:54 PM Signed Patient has been communicating via Dr. Shaikh Liang's office. [place] nurse [phone] Diagnosis: aneurysm All records are in Oksana Eaton RN 05/06/2023 1:57 PM Addendum I have called and discussed with Marcel Brown recommendations which are there is no indication for surgery. 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 Also, blood pressure control is essential to keep aorta size stable. He verbalized understanding Oksana Spear RN diagnosis: aorta 4.1 cm on echo history: obesity, chronic back pain, anxiety, asthma, HTN, SALVATORE, Referring Provider: SHAIKH LIANG [[id number]] Allergies As of Date: 04/21/2023 Noted Allergy Reaction DEMEROL (MEPERIDINE (PF)) 06/10/2014 1 - Mental Status Change MORPHINE 06/10/2014 1 - Mental Status Change PENICILLINS 03/03/2005 Date Reviewed: 09/30/2014 Reviewed by: Coco Steinberg RN - Fully Assessed Reason for Visit: Referral Information [[id number]] Prescriptions as of 05/06/2023 - HYDROcodone-Acetaminop hen [...] Status:Closed by OKSANA SPEAR on 05/06/23 Normal [facility] XR Scoliosis Study 2 or 3 Vi [...] Electronically Signed in Other Vendor System) Normal [facility] XR Spine Lumbosacral Bending 2-3 [...] Electronically Signed in Other Vendor System) Normal [facility] Provider Letteron 03-17-2023 Provider Letter hSavonne Chowdary, PIPELINE SUPERINTENDENT DIVISION-BELT OPERATOR [address] [place] [address] Re: Marcel Wahl Date of Visit: 03/17/2023 Dear Shavonne Chowdary, Thank you for allowing me to contribute to the care of your patient, Marcel Wahl. Attached is my office note and you will find my assessment and recommendations from our encounter today. Please do not hesitate to contact me with any questions or concerns. Sincerely, Barbie Almaraz PA-C [facility] [place] [address] The following document(s) were included in the letter: March 17, 2023 12:49:22 EDT - (03/17/2023) Neurosurgery Office Visit Note Normal [facility] CBC AUTO DIFFon 09-01-2022 BASO # 0.1 103/ul Normal 0.0-0.1 [facility] Comment on above: Performed By: #### C BC ####[facility] [address] [place] [address]Dr. Gema Beck Basophils/100 WBC (Bld) 0.8 % Normal 0.2-2.0 [facility] Comment on above: Performed By: #### C BC ####[facility] [address] [place] [address]DrSohail Beck EO # 0.2 103/ul Normal 0.0-0.7 [facility] Comment on above: Performed By: #### C BC ####[facility] [address] [place] [address]Dr. Gema Beck Eosinophils/100 WBC (Bld) 1.6 % Normal 0.9-7.0 [facility] Comment on above: Performed By: #### C BC ####[facility] [address] [place] [address]Dr. Gema Beck Erythrocyte distribution width (RBC) [Ratio] 11.8 % Normal 11.0-15.0 [facility] Comment on above: Performed By: #### C BC ####[facility] [address] [place], [place] [address]Dr. Gema Beck Hematocrit (Bld) [Volume fraction] 43.3 % Normal 42.0-54.0 [facility] Comment on above: Performed By: #### C BC ####[facility] [address] [place], [place] [address]Dr. Gema Beck Hemoglobin (Bld) [Mass/Vol] 14.2 g/dL Normal 14.0-18.0 [facility] Comment on above: Performed By: #### C BC ####[facility] [address] [place], [place] [address]Dr. Gema Beck IG # 0.07 10e3/ul Critically high 0.00-0.03 The [facility] Comment on above: Performed By: #### C BC ####[facility] [address] [place], [place] [address]Dr. Gema Beck IG % 0.7 % Critically high 0.0-0.5 [facility] Comment on above: Performed By: #### C BC ####[facility] [address] [place], [place] [address]Dr. Gema Beck LYMPH # 2.6 103/ul Normal 1.2-3.8 [facility] Comment on above: Performed By: #### C BC ####[facility] [address] [place], [place] [address]Dr. Gema Beck Lymphocytes/100 WBC (Bld) 27.0 % Normal 20.5-60.0 [facility] Comment on above: Performed By: #### C BC ####[facility] [address] [place] [id number]. Gema Beck MANUAL DIFF REQ NO Normal [facility] Comment on above: Performed By: #### C BC ####[facility] [address] [place] [id number]. Gema Beck MCH (RBC) [Entitic mass] 32.1 pg Normal 25.9-34.0 [facility] Comment on above: Performed By: #### C BC ####[facility] [address] [place] [address]Dr. Gema Beck MCHC (RBC) [Mass/Vol] 32.8 g/dL Normal 29.9-35.2 [facility] Comment on above: Performed By: #### C BC ####[facility] [address] [place] [address]Dr. Gema Kiran MCV (RBC) [Entitic vol] 98.0 fL Critically high 80.0-94.0 [facility] Comment on above: Performed By: #### C BC ####[facility] [address] [place], [place] [address]Dr. Gema Kiran MONO # 0.7 103/ul Normal 0.3-0.8 [facility] Comment on above: Performed By: #### C BC ####[facility] [address] [place], [place] [address]Dr. Enedeliaamairani Beck Monocytes/100 WBC (Bld) 7.8 % Normal 1.7-12.0 [facility] Comment on above: Performed By: #### C BC ####[facility] [address] [place], [place] [address]Dr. Gema Beck NEUT # 5.9 103/ul Normal 1.4-6.5 [facility] Comment on above: Performed By: #### C BC ####[facility] [address] [place], [place] [address]Dr. Enedeliaamairani Beck Neutrophils/100 WBC (Bld) 62.1 % Normal 43.0-75.0 [facility] Comment on above: Performed By: #### C BC ####[facility] [address] [place] [id number]. Gema Beck Platelet mean volume (Bld) [Entitic vol] 9.1 fL Critically low 9.5-13.5 [facility] Comment on above: Performed By: #### C BC ####[facility] [address] [place], [place] [address]GeSohail Beck PLT 342 103/ul Normal 150-450 [facility] Comment on above: Performed By: #### C BC ####[facility] [address] [place] [id number]. Gema Beck RBC 4.42 106/ul Critically low 4.70-6.10 [facility] Comment on above: Performed By: #### C BC ####[facility] [address] [place] [id number] Beck WBC 9.5 103/ul Normal 4.0-11.0 [facility] Comment on above: Performed By: #### C BC ####[facility] [address] [place] [id number]. Gema Beck PROF 14(COMP METB)on 023 Albumin [Mass/Vol] 3.6 g/dL Normal 3.4-5.0 [facility] Comment on above: Performed By: #### C MP #### [facility] [address] [place] [address] [address] Gema Beck Albumin/Globulin [Mass ratio] 1.1 {ratio} Normal [facility] Comment on above: Performed By: #### C MP #### [facility] [address] [place] [address] [address] Gema Beck ALP [Catalytic activity/Vol] 66 U/L Normal 46-116 [facility] Comment on above: Performed By: #### C MP #### [facility] [address] [place] [address] [address] Gema Beck ALT [Catalytic activity/Vol] 22 U/L Normal 16-63 [facility] Comment on above: Performed By: #### C MP #### [facility] [address] [place] [address] [address] Gema Beck Anion gap [Moles/Vol] 13.2 mmol/L Normal [facility] Comment on above: Performed By: #### C MP #### [facility] [address] [place] [address] [address] Gema Beck AST [Catalytic activity/Vol] 15 U/L Normal 15-37 [facility] Comment on above: Performed By: #### C MP #### [facility] [address] [place] [address] [address] Gema Beck Bilirubin [Mass/Vol] 0.3 mg/dL Normal 0.2-1.0 [facility] Comment on above: Performed By: #### C MP #### [facility] [address] [place] [address] [address] Gema Beck Calcium [Mass/Vol] 8.7 mg/dL Normal 8.5-10.1 [facility] Comment on above: Performed By: #### C MP #### [facility] [address] [place] [address] Dr. Gema Beck Chloride [Moles/Vol] 105 mmol/L Normal 98-107 [facility] Comment on above: Performed By: #### C MP #### [facility] [address] [place] [address] [address] Gema Beck CO2 [Moles/Vol] 27.6 mmol/L Normal 21.0-32.0 [facility] Comment on above: Performed By: #### C MP #### [facility] [address] [place] [address] [address] Gema Beck Creatinine [Mass/Vol] 0.83 mg/dL Normal 0.70-1.30 [facility] Comment on above: Performed By: #### C MP #### [facility] [address] [place] [address] Dr. Gema Beck EGFR-AF MACEDONIAN >60 Normal >=60 [facility] Comment on above: Performed By: #### C MP #### [facility] [address] [place] [address] Dr. Gema Beck EGFR-NON AF MACEDONIAN >60 Normal >=60 [facility] Comment on above: Performed By: #### C MP #### [facility] [address] [place] [address] [address] Gema Beck Globulin (S) [Mass/Vol] 3.4 g/dL Normal [facility] Comment on above: Performed By: #### C MP #### [facility] [address] [place] [address] [address] Gema Beck Glucose [Mass/Vol] 97 mg/dL Normal 74-106 [facility] Comment on above: Performed By: #### C MP #### [facility] [address] [place] [address] [address] Gema Beck Potassium [Moles/Vol] 3.8 mmol/L Normal 3.5-5.1 [facility] Comment on above: Performed By: #### C MP #### [facility] [address] [place] [address] [address] Gema Beck Protein [Mass/Vol] 7.0 g/dL Normal 6.4-8.2 [facility] Comment on above: Performed By: #### C MP #### [facility] [address] [place] [address] [address] Gema Beck Sodium [Moles/Vol] 142 mmol/L Normal 136-145 [facility] Comment on above: Performed By: #### C MP #### [facility] [address] [place] [address] [address] Gema Beck Urea nitrogen [Mass/Vol] 17.0 mg/dL Normal 7.0-18.0 [facility] Comment on above: Performed By: #### C MP #### [facility] [address] [place] [address] [address] Gema Beck Urea nitrogen/Creatinine [Mass ratio] 20.5 mg/mg Normal [facility] Comment on above: Performed By: #### C MP #### [facility] [address] [place] [address] [address] Gema Beck CBC AUTO DIFFon 06-29-2022 BASO # 0.1 103/ul Normal 0.0-0.1 [facility] Comment on above: Performed By: #### C BC ####[facility] [address] [place] [id number]. Gema Beck Basophils/100 WBC (Bld) 1.4 % Normal 0.2-2.0 [facility] Comment on above: Performed By: #### C BC ####[facility] [address] [place] [address]Dr. Gema Beck EO # 0.1 103/ul Normal 0.0-0.7 [facility] Comment on above: Performed By: #### C BC ####[facility] [address] [place], [place] [address]Dr. Gema Beck Eosinophils/100 WBC (Bld) 2.1 % Normal 0.9-7.0 [facility] Comment on above: Performed By: #### C BC ####[facility] [address] [place], [place] [address]Dr. Gema Beck Erythrocyte distribution width (RBC) [Ratio] 12.3 % Normal 11.0-15.0 [facility] Comment on above: Performed By: #### C BC ####[facility] [address] [place], [place] [address]Dr. Gema Beck Hematocrit (Bld) [Volume fraction] 42.2 % Normal 42.0-54.0 [facility] Comment on above: Performed By: #### C BC ####[facility] [address] [place], [place] [address]Dr. Gema Beck Hemoglobin (Bld) [Mass/Vol] 13.9 g/dL Critically low 14.0-18.0 [facility] Comment on above: Performed By: #### C BC ####[facility] [address] [place], [place] [address]Dr. Gema Beck IG # 0.07 10e3/ul Critically high 0.00-0.03 [facility] Comment on above: Performed By: #### C BC ####[facility] [address] [place], [place] [address]Dr. Gema Beck IG % 1.1 % Critically high 0.0-0.5 [facility] Comment on above: Performed By: #### C BC ####[facility] [address] [place] [address]Dr. Gema Beck LYMPH # 1.9 103/ul Normal 1.2-3.8 [facility] Comment on above: Performed By: #### C BC ####[facility] [address] [place] [address]Dr. Gema Beck Lymphocytes/100 WBC (Bld) 28.6 % Normal 20.5-60.0 [facility] Comment on above: Performed By: #### C BC ####[facility] [address] [place] [address]DrSohail Beck MANUAL DIFF REQ NO Normal [facility] Comment on above: Performed By: #### C BC ####[facility] [address] [place], [place] [address]Dr. Gema Beck MCH (RBC) [Entitic mass] 32.0 pg Normal 25.9-34.0 [facility] Comment on above: Performed By: #### C BC ####[facility] [address] [place] [address]Dr. Gema Beck MCHC (RBC) [Mass/Vol] 32.9 g/dL Normal 29.9-35.2 [facility] Comment on above: Performed By: #### C BC ####[facility] [address] [place] [address]DrSohail Beck MCV (RBC) [Entitic vol] 97.0 fL Critically high 80.0-94.0 [facility] Comment on above: Performed By: #### C BC ####[facility] [address] [place], [place] [address]DrSohail Beck MONO # 0.5 103/ul Normal 0.3-0.8 [facility] Comment on above: Performed By: #### C BC ####[facility] [address] [place] [id number]. Gema Beck Monocytes/100 WBC (Bld) 8.0 % Normal 1.7-12.0 [facility] Comment on above: Performed By: #### C BC ####[facility] [address] [place] [address]Dr. Gema Beck NEUT # 3.9 103/ul Normal 1.4-6.5 [facility] Comment on above: Performed By: #### C BC ####[facility] [address] [place] [id number] Gema Beck Neutrophils/100 WBC (Bld) 58.8 % Normal 43.0-75.0 [facility] Comment on above: Performed By: #### C BC ####[facility] [address] [place] [address]Dr. Gema Beck Platelet mean volume (Bld) [Entitic vol] 9.6 fL Normal 9.5-13.5 [facility] Comment on above: Performed By: #### C BC ####[facility] [address] [place] [address]Dr. Gema Beck PLT 334 103/ul Normal 150-450 [facility] Comment on above: Performed By: #### C BC ####[facility] [address] [place] [id number]. Gema Beck RBC 4.35 106/ul Critically low 4.70-6.10 [facility] Comment on above: Performed By: #### C BC ####[facility] [address] [place] [address]Dr. Gema Kiran WBC 6.7 103/ul Normal 4.0-11.0 [facility] Comment on above: Performed By: #### C BC ####[facility] [address] [place] [id number] Gema Beck GLYCOHEMOGLOBIN A1Con 2021 ADA RECOMMENDATION SEE BELOW Normal [facility] Comment on above: Result Comment: ADA RECOMMENDED LIMIT 4.0 - 6.0 ADA THERAPEUTIC TARGET < 7.0 ACTION SUGGESTED > 7.0 Performed By: #### A 1C ####[facility] [address] [place] [address]Dr. Gema Beck Glucose [Mass/Vol] 120 mg/dL Normal [facility] Comment on above: Performed By: #### A 1C ####[facility] [address] [place], [place] [address]KxDr. Gema Beck HbA1c (Bld) [Mass fraction] 5.8 % Normal 4.5-6.2 [facility] Comment on above: Performed By: #### A 1C ####[facility] [address] [place] [id number]. Gema Beck LIPID PROFILEon 06-29-2022 CHOL-HDL RATIO NORM SEE BELOW Normal [facility] Comment on above: Result Comment: 3.3 - 4.4 LOW RISK 4.4 - 7.1 AVERAGE RISK 7.1 - 11.0 MODERATE RISK >11.0 HIGH RISK Performed By: #### L IPID, TSH, CMP #### [facility] [address] [place] [address] [address] Gema Beck Cholesterol [Mass/Vol] 183 mg/dL Normal <=200 [facility] Comment on above: Performed By: #### L IPID, TSH, CMP #### [facility] [address] [place] [address] [address] Gema Beck Cholesterol in HDL [Mass/Vol] 44 mg/dL Normal 40-60 [facility] Comment on above: Performed By: #### L IPID, TSH, CMP #### [facility] [address] [place] [address] [address] Gema Beck Cholesterol in LDL [Mass/Vol] 125.2 mg/dL Normal [facility] Comment on above: Performed By: #### L IPID, TSH, CMP #### [facility] [address] [place], [place] [address] Dr. Gema Beck Cholesterol.total/Ch olesterol in HDL [Mass ratio] 4.2 {ratio} Normal [facility] Comment on above: Performed By: #### L IPID, TSH, CMP #### [facility] [address] [place] [address] [address] Gema Beck HDL NORMAL > or = 60 mg/dl - LO W CARDIOVASCULAR RISK <40 mg/dl - HIGH CARDIOVASCULAR RISK Normal [facility] Comment on above: Performed By: #### L IPID, TSH, CMP #### [facility] [address] [place] [address] [address] Gema Beck LDL CALC NORMAL SEE BELOW Normal [facility] Comment on above: Result Comment: <100 mg/dl OPTIMAL 100 - 129 mg/dl NEAR OR ABOVE OPTIMAL 130 - 159 mg/dl BORDERLINE HIGH 160 - 189 mg/dl HIGH >190 mg/dl VERY HIGH Performed By: #### L IPID, TSH, CMP #### [facility] [address] [place] [address] [address] Gema Beck Triglyceride [Mass/Vol] 69 mg/dL Normal <=150 [facility] Comment on above: Performed By: #### L IPID, TSH, CMP #### [facility] [address] [place] [address] [address] Gema Beck VLDL CALC 13.8 mg/dL Normal [facility] Comment on above: Performed By: #### L IPID, TSH, CMP #### [facility] [address] [address] [address] Gema Beck PROF 14(COMP METB)on 022 Albumin [Mass/Vol] 3.6 g/dL Normal 3.4-5.0 [facility] Comment on above: Performed By: #### L IPID, TSH, CMP #### [facility] [address] [place] [address] [address] Gema Beck Albumin/Globulin [Mass ratio] 1.1 {ratio} Normal [facility] Comment on above: Performed By: #### L IPID, TSH, CMP #### [facility] [address] [place] [address] [address] Gema Beck ALP [Catalytic activity/Vol] 73 U/L Normal 46-116 [facility] Comment on above: Performed By: #### L IPID, TSH, CMP #### [facility] [address] [place] [address] [address] Gema Beck ALT [Catalytic activity/Vol] 29 U/L Normal 16-63 [facility] Comment on above: Performed By: #### L IPID, TSH, CMP #### [facility] [address] [place] [address] [address] Gema Beck Anion gap [Moles/Vol] 7.3 mmol/L Normal [facility] Comment on above: Performed By: #### L IPID, TSH, CMP #### [facility] [facility] [address] [address] [address] Gema Beck AST [Catalytic activity/Vol] 18 U/L Normal 15-37 [facility] Comment on above: Performed By: #### L IPID, TSH, CMP #### [facility] [address] [address] [address] Gema Beck Bilirubin [Mass/Vol] 0.4 mg/dL Normal 0.2-1.0 [facility] Comment on above: Performed By: #### L IPID, TSH, CMP #### [facility] [address] [place] [address] Dr. Gema Beck Calcium [Mass/Vol] 8.6 mg/dL Normal 8.5-10.1 [facility] Comment on above: Performed By: #### L IPID, TSH, CMP #### [facility] [address] [place] [address] Dr. Gema Beck Chloride [Moles/Vol] 104 mmol/L Normal 98-107 [facility] Comment on above: Performed By: #### L IPID, TSH, CMP #### [facility] [address] [address] [address] Gema Beck CO2 [Moles/Vol] 29.1 mmol/L Normal 21.0-32.0 [facility] Comment on above: Performed By: #### L IPID, TSH, CMP #### [facility] [address] [place] [address] Dr. Gema Beck Creatinine [Mass/Vol] 0.88 mg/dL Normal 0.70-1.30 [facility] Comment on above: Performed By: #### L IPID, TSH, CMP #### [facility] [address] [place] [address] Dr. Gema Beck EGFR-AF MACEDONIAN >60 Normal >=60 [facility] Comment on above: Performed By: #### L IPID, TSH, CMP #### [facility] [address] [place] [address] Dr. Gema Beck EGFR-NON AF MACEDONIAN >60 Normal >=60 [facility] Comment on above: Performed By: #### L IPID, TSH, CMP #### [facility] [address] [place] [address] Dr. Gema Beck Globulin (S) [Mass/Vol] 3.4 g/dL Normal [facility] Comment on above: Performed By: #### L IPID, TSH, CMP #### [facility] [address] [place] [address] Dr. Gema Beck Glucose [Mass/Vol] 99 mg/dL Normal 74-106 [facility] Comment on above: Performed By: #### L IPID, TSH, CMP #### [facility] [address] [place] [address] Dr. Gema Beck Potassium [Moles/Vol] 4.4 mmol/L Normal 3.5-5.1 [facility] Comment on above: Performed By: #### L IPID, TSH, CMP #### [facility] [address] [place] [address] Dr. Gema Beck Protein [Mass/Vol] 7.0 g/dL Normal 6.4-8.2 [facility] Comment on above: Performed By: #### L IPID, TSH, CMP #### [facility] [address] [place] [address] Dr. Gema Beck Sodium [Moles/Vol] 136 mmol/L Normal 136-145 [facility] Comment on above: Performed By: #### L IPID, TSH, CMP #### [facility] [address] [place] [address] Dr. Gema Beck Urea nitrogen [Mass/Vol] 17.0 mg/dL Normal 7.0-18.0 [facility] Comment on above: Performed By: #### L IPID, TSH, CMP #### [facility] [address] [address] [address] Gema Beck Urea nitrogen/Creatinine [Mass ratio] 19.3 mg/mg Normal [facility] Comment on above: Performed By: #### L IPID, TSH, CMP #### [facility] [address] [address] [address] Gema Beck TSHon 06-29-2022 TSH 1.148 uIU/mL Normal 0.358-3.740 [facility] Comment on above: Performed By: #### L IPID, TSH, CMP ####[facility] [address] [address]Dr. Gema Beck UA RANDOM W/MICROSCOPICon BACTERIA NONE SEEN Normal NONE SEEN [facility] Comment on above: Performed By: #### U AMIC #### [facility] [address] [place] [address] Dr. Gema Beck Bilirubin Ql (U) SMALL Abnormal NEGATIVE [facility] Comment on above: Performed By: #### U AMIC #### [facility] [address] [place] [address] Dr. Gema Beck CAST NONE SEEN Normal NONE SEEN [facility] Comment on above: Performed By: #### U AMIC #### [facility] [address] [place] [address] Dr. Gema Beck Clarity (U) CLEAR Normal CLEAR [facility] Comment on above: Performed By: #### U AMIC #### [facility] [address] [place] [address] Dr. Gema Beck Color (U) LT. YELLOW Normal YELLOW [facility] Comment on above: Performed By: #### U AMIC #### [facility] [address] [place] [address] Dr. Gema Beck Crystals LM Nom (Urine sed) NONE SEEN Normal NONE SEEN [facility] Comment on above: Performed By: #### U AMIC #### [facility] [address] [place] [address] Dr. Gema Beck Epithelial cells LM Ql (Urine sed) RARE Normal NONE SEEN /RARE [facility] Comment on above: Performed By: #### U AMIC #### [facility] [address] [address] [address] Gema Beck Glucose Ql (U) Negative Normal NEGATIVE [facility] Comment on above: Performed By: #### U AMIC #### [facility] [address] [address] [address] Gema Beck Hemoglobin Ql (U) Negative Normal NEGATIVE The [facility] Comment on above: Performed By: #### U AMIC #### [facility] [address] [address] [address] Gema Beck Ketones Ql (U) Negative Normal NEGATIVE [facility] Comment on above: Performed By: #### U AMIC #### [facility] [address] [address] [address] Gema Beck LEUKOCYTES Negative Normal NEGATIVE [facility] Comment on above: Performed By: #### U AMIC #### [facility] [address] [address] [address] Gema Beck MUCOUS NONE SEEN Normal NONE SEEN [facility] Comment on above: Performed By: #### U AMIC #### [facility] [address] [address] [address] Gema Beck Nitrite Ql (U) Negative Normal NEGATIVE [facility] Comment on above: Performed By: #### U AMIC #### [facility] [address] [address] [address] Gema Beck pH (U) 5.5 [pH] Normal 5-9 [facility] Comment on above: Performed By: #### U AMIC #### [facility] [address] [address] [address] Gema Beck RBC NONE SEEN Abnormal 0-2 [facility] Comment on above: Performed By: #### U AMIC #### [facility] [address] [address] [address] Gema Beck SPEC GRAVITY 1.010 Normal 1.005-<=1.025 [facility] Comment on above: Performed By: #### U AMIC #### [facility] [address] [address] [address] Gema Beck UA PROTEIN Negative Normal NEGATIVE/ TRACE [facility] Comment on above: Performed By: #### U AMIC #### [facility] [address] [address] [address] Gema Beck Urobilinogen Qn (U) 0.2 {Merari'U}/dL Normal 0.2 - 1. 0 [facility] Comment on above: Performed By: #### U AMIC #### [facility] [address] [address] [address] Gema Beck WBC NONE SEEN Normal NONE SEEN [facility] Comment on above: Performed By: #### U AMIC #### [facility] [address] [address] [address] Gema Beck ALDOLASEon 03-04-2022 Aldolase 3.4 U/L Normal 3.3-10.3 [facility] Comment on above: Performed By: #### A LDOLAS ####[facility] [address] [address]Dr. Gema Beck CPKon 03-03-2022 CK [Catalytic activity/Vol] 205 U/L Normal 39-308 [facility] Comment on above: Performed By: #### L DH, CK, EVI #### [facility] [address] [address] [address] Gema Beck LDHon 03-03-2022 LDH 180 U/L Normal 85-227 [facility] Comment on above: Performed By: #### L DH, CK, EVI #### [facility] [address] [address] [address] Gema Beck MYOGLOBINon 03-03-2022 EVI 65 ng/mL Normal 16-96 [facility] Comment on above: Performed By: #### L DH, CK, EVI #### [facility] [address] [address] [address] Gema Beck CBC AUTO DIFFon 02-23-2022 BASO # 0.1 103/ul Normal 0.0-0.1 [facility] Comment on above: Performed By: #### C BC ####[facility] [address] [id number]. Gema Beck Basophils/100 WBC (Bld) 1.1 % Normal 0.2-2.0 [facility] Comment on above: Performed By: #### C BC ####[facility] [address] [id number]. Gema Beck EO # 0.1 103/ul Normal 0.0-0.7 [facility] Comment on above: Performed By: #### C BC ####[facility] [address] [id number]. Gema Beck Eosinophils/100 WBC (Bld) 1.5 % Normal 0.9-7.0 [facility] Comment on above: Performed By: #### C BC ####[facility] [address] [place], [place] [address]Dr. Gema Beck Erythrocyte distribution width (RBC) [Ratio] 12.0 % Normal 11.0-15.0 [facility] Comment on above: Performed By: #### C BC ####[facility] [address] [place], [place] [address]Dr. Gema Beck Hematocrit (Bld) [Volume fraction] 42.9 % Normal 42.0-54.0 [facility] Comment on above: Performed By: #### C BC ####[facility] [address] [place], [place] [address]Dr. Gema Beck Hemoglobin (Bld) [Mass/Vol] 14.0 g/dL Normal 14.0-18.0 [facility] Comment on above: Performed By: #### C BC ####[facility] [address] [id number]. Gema Beck IG # 0.04 10e3/ul Critically high 0.00-0.03 [facility] Comment on above: Performed By: #### C BC ####[facility] [address] [id number]. Gema Beck IG % 0.6 % Critically high 0.0-0.5 [facility] Comment on above: Performed By: #### C BC ####[facility] [address] [id number]. Gema Beck LYMPH # 2.1 103/ul Normal 1.2-3.8 [facility] Comment on above: Performed By: #### C BC ####[facility] [address] [id number]. Gema Beck Lymphocytes/100 WBC (Bld) 28.6 % Normal 20.5-60.0 [facility] Comment on above: Performed By: #### C BC ####[facility] [address] [address]Dr. Gema Beck MANUAL DIFF REQ NO Normal [facility] Comment on above: Performed By: #### C BC ####[facility] [address] [address]Dr. Gema Beck MCH (RBC) [Entitic mass] 31.9 pg Normal 25.9-34.0 [facility] Comment on above: Performed By: #### C BC ####[facility] [address] [id number]. Gema Beck MCHC (RBC) [Mass/Vol] 32.6 g/dL Normal 29.9-35.2 [facility] Comment on above: Performed By: #### C BC ####[facility] [address] [id number]. Gema Beck MCV (RBC) [Entitic vol] 97.7 fL Critically high 80.0-94.0 [facility] Comment on above: Performed By: #### C BC ####[facility] [address] [id number]. Gema Beck MONO # 0.6 103/ul Normal 0.3-0.8 [facility] Comment on above: Performed By: #### C BC ####[facility] [address] [id number]. Gema Beck Monocytes/100 WBC (Bld) 7.8 % Normal 1.7-12.0 [facility] Comment on above: Performed By: #### C BC ####[facility] [address] [place], [place] [address]GfSohail Beck NEUT # 4.4 103/ul Normal 1.4-6.5 [facility] Comment on above: Performed By: #### C BC ####[facility] [address] [place], [place] [address]SwSohail Beck Neutrophils/100 WBC (Bld) 60.4 % Normal 43.0-75.0 [facility] Comment on above: Performed By: #### C BC ####[facility] [address] [place], [place] [address]BrSohail Beck Platelet mean volume (Bld) [Entitic vol] 9.2 fL Critically low 9.5-13.5 [facility] Comment on above: Performed By: #### C BC ####[facility] [address] [id number] Beck PLT 376 103/ul Normal 150-450 [facility] Comment on above: Performed By: #### C BC ####[facility] [address] [place], [place] [address]KfDr. Gema Beck RBC 4.39 106/ul Critically low 4.70-6.10 [facility] Comment on above: Performed By: #### C BC ####[facility] [address] [place], [place] [address]UwSohail Beck WBC 7.2 103/ul Normal 4.0-11.0 [facility] Comment on above: Performed By: #### C BC ####[facility] [address] [place], [place] [address]WjDr. Gema Beck PROF 14(COMP METB)on 022 Albumin [Mass/Vol] 3.7 g/dL Normal 3.4-5.0 [facility] Comment on above: Performed By: #### C MP #### [facility] [address] [place], [place] [address] Dr. Gema Beck Albumin/Globulin [Mass ratio] 1.1 {ratio} Normal [facility] Comment on above: Performed By: #### C MP #### [facility] [address] [address] [address] Gema Beck ALP [Catalytic activity/Vol] 67 U/L Normal 46-116 [facility] Comment on above: Performed By: #### C MP #### [facility] [address] [address] [address] Gema Beck ALT [Catalytic activity/Vol] 28 U/L Normal 16-63 [facility] Comment on above: Performed By: #### C MP #### [facility] [address] [place] [address] Dr. Gema Beck Anion gap [Moles/Vol] 10.3 mmol/L Normal [facility] Comment on above: Performed By: #### C MP #### [facility] [address] [place] [address] Dr. Gema Beck AST [Catalytic activity/Vol] 19 U/L Normal 15-37 [facility] Comment on above: Performed By: #### C MP #### [facility] [address] [place] [address] Dr. Gema Beck Bilirubin [Mass/Vol] 0.5 mg/dL Normal 0.2-1.0 [facility] Comment on above: Performed By: #### C MP #### [facility] [address] [place] [address] Dr. Gema Beck Calcium [Mass/Vol] 8.8 mg/dL Normal 8.5-10.1 [facility] Comment on above: Performed By: #### C MP #### [facility] [address] [place] [address] Dr. Gema Beck Chloride [Moles/Vol] 104 mmol/L Normal 98-107 [facility] Comment on above: Performed By: #### C MP #### [facility] [address] [place] [address] Dr. Gema Beck CO2 [Moles/Vol] 30.0 mmol/L Normal 21.0-32.0 [facility] Comment on above: Performed By: #### C MP #### [facility] [address] [address] [address] Gema Beck Creatinine [Mass/Vol] 0.86 mg/dL Normal 0.70-1.30 [facility] Comment on above: Performed By: #### C MP #### [facility] [address] [address] [address] Gema Beck EGFR-AF MACEDONIAN >60 Normal >=60 [facility] Comment on above: Performed By: #### C MP #### [facility] [address] [address] [address] Gema Beck EGFR-NON AF MACEDONIAN >60 Normal >=60 [facility] Comment on above: Performed By: #### C MP #### [facility] [address] [place] [address] Dr. Gema Beck Globulin (S) [Mass/Vol] 3.5 g/dL Normal [facility] Comment on above: Performed By: #### C MP #### [facility] [address] [place] [address] Dr. Gema Beck Glucose [Mass/Vol] 103 mg/dL Normal 74-106 [facility] Comment on above: Performed By: #### C MP #### [facility] [address] [place] [address] Dr. Gema Beck Potassium [Moles/Vol] 4.3 mmol/L Normal 3.5-5.1 [facility] Comment on above: Performed By: #### C MP #### [facility] [address] [place] [address] Dr. Gema Beck Protein [Mass/Vol] 7.2 g/dL Normal 6.4-8.2 [facility] Comment on above: Performed By: #### C MP #### [facility] [address] [place] [address] Dr. Gema Beck Sodium [Moles/Vol] 140 mmol/L Normal 136-145 [facility] Comment on above: Performed By: #### C MP #### [facility] [address] [place] [address] Dr. Gema Beck Urea nitrogen [Mass/Vol] 18.0 mg/dL Normal 7.0-18.0 [facility] Comment on above: Performed By: #### C MP #### [facility] [address] [place], [place] [address] Dr. Gema Beck Urea nitrogen/Creatinine [Mass ratio] 20.9 mg/mg Normal [facility] Comment on above: Performed By: #### C MP #### [facility] [address] [place], [place] [address] Dr. Gema Beck XR CHEST (2 VW)on [...] Terence Leroy MD 02/14/20 Final result Normal [facility] XR CHEST STANDARD (2 VW)on 0 02-14-2020 Negative chest. [place], [place] EXAMINATION: TWO XRA Y VIEWS OF THE CHEST 02/14/2020 2:30 pm COMPARISON: None. HISTORY: ORDERING SYSTEM PROVIDED HISTORY: insure deep inspiration FINDINGS: The lungs are without acute focal process. No effusion or pneumothorax. The cardiomediastinal silhouette is normal. The osseous structures are intact without acute process. [place], [place], [employer] Incoming Radiant Results [employer] - 02/14/2020 2:38 PM EDT EXAMINATION: TWO XRAY VIEWS OF THE CHEST 02/14/2020 2:30 pm COMPARISON: None. HISTORY: ORDERING SYSTEM PROVIDED HISTORY: insure deep inspiration FINDINGS: The lungs are without acute focal process. No effusion or pneumothorax. The cardiomediastinal silhouette is normal. The osseous structures are intact without acute process. IMPRESSION: Negative chest. [facility] Vital Signs Date Time Vital Sign Value Performing Clinician Facility 06-26-2024 12:04-0500 Blood Pressure Location [facility] 06-26-2024 12:04-0500 Diastolic blood pressure 78 mm[Hg] Wendi Orzech [facility] 06-26-2024 12:04-0500 Heart rate 73 /min Wendi Orzech [facility] 06-26-2024 12:04-0500 Systolic blood pressure 138 mm[Hg] Wendi Orzech [facility] 06-26-2024 09:31-0500 Body height 177.8 cm Shavonne Chowdary WE[employer] SCIENCE RESEARCH TECHNICIAN Work Phone: [facility] 06-26-2024 09:31-0500 Body mass index (BMI) [Ratio] 44.11 kg/m2 Shavonnechandrika Chowdary WEED SCIENCE RESEARCH TECHNICIAN Work Phone: [facility] 06-26-2024 09:31-0500 Body temperature 98.1 [degF] Shavonne Epi WE[employer] SCIENCE RESEARCH TECHNICIAN Work Phone: [facility] 06-26-2024 09:31-0500 Body weight 139.44 kg Shavonne Epi WE[employer] SCIENCE RESEARCH TECHNICIAN Work Phone: [facility] 06-26-2024 09:31-0500 Diastolic blood pressure 82 mm[Hg] Shavonne Chowdary WEED SCIENCE RESEARCH TECHNICIAN Work Phone: [facility] 06-26-2024 09:31-0500 Heart rate 64 /min Shavonne Epi WE[employer] SCIENCE RESEARCH TECHNICIAN Work Phone: [facility] 06-26-2024 09:31-0500 Respiratory rate 19 /min Shavonne Mikez WE[employer] SCIENCE RESEARCH TECHNICIAN Work Phone: [facility] 06-26-2024 09:31-0500 SaO2% (BldA) [Mass fraction] 97 % Shavonne Epi WE[employer] SCIENCE RESEARCH TECHNICIAN Work Phone: [facility] 06-26-2024 09:31-0500 Systolic blood pressure 122 mm[Hg] Shavonne Alannegra WEED SCIENCE RESEARCH TECHNICIAN Work Phone: [facility] 02-21-2024 09:29-0400 Blood Pressure Location Wendi Orzech [facility] 02-21-2024 09:29-0400 Diastolic blood pressure 81 mm[Hg] Wendi Orzech [facility] 02-21-2024 09:29-0400 Heart rate 101 /min Wendi Orzech [facility] 02-21-2024 09:29-0400 Respiratory rate 16 /min Wendi Orzech [facility] 02-21-2024 09:29-0400 Systolic blood pressure 136 mm[Hg] Wendi Orzech [facility] 12-05-2023 13:49-0400 Blood Pressure Location Javier DOWNS [facility] 12-05-2023 13:49-0400 Diastolic blood pressure 84 mm[Hg] Javeir DOWNS [facility] 12-05-2023 13:49-0400 Heart rate 87 /min Javier DOWNS [facility] 12-05-2023 13:49-0400 Respiratory rate 16 /min Javier DOWNS [facility] 12-05-2023 13:49-0400 Systolic blood pressure 131 mm[Hg] Javier DOWNS [facility] 09-29-2023 13:07-0500 Body height 177.8 cm Shavonne Chowdary WE[employer] SCIENCE RESEARCH TECHNICIAN Work Phone: [facility] 09-29-2023 13:07-0500 Body mass index (BMI) [Ratio] 45.31 kg/m2 Shavonne Mckeonz WE[employer] SCIENCE RESEARCH TECHNICIAN Work Phone: [facility] 09-29-2023 13:07-0500 Body temperature 98.2 [degF] Shavonne Mckeonz WEED SCIENCE RESEARCH TECHNICIAN Work Phone: [facility] 09-29-2023 13:07-0500 Body weight 143.25 kg Shavonne Mckeonz WEED SCIENCE RESEARCH TECHNICIAN Work Phone: [facility] 09-29-2023 13:07-0500 Diastolic blood pressure 88 mm[Hg] Shavonne Mckeonz WEED SCIENCE RESEARCH TECHNICIAN Work Phone: [facility] 09-29-2023 13:07-0500 Heart rate 91 /min Shavonnechandrika Wongmartinz WEED SCIENCE RESEARCH TECHNICIAN Work Phone: [facility] 09-29-2023 13:07-0500 Respiratory rate 19 /min Shavonnechandrika Mckeonz WEED SCIENCE RESEARCH TECHNICIAN Work Phone: [facility] 09-29-2023 13:07-0500 SaO2% (BldA) [Mass fraction] 98 % Shavonne Mckenoz WE[employer] SCIENCE RESEARCH TECHNICIAN Work Phone: [facility] 09-29-2023 13:07-0500 Systolic blood pressure 138 mm[Hg] Shavonne Wongmartinz WEED SCIENCE RESEARCH TECHNICIAN Work Phone: [facility] 03-28-2023 11:36-0400 Blood Pressure Location Javier DOWNS [facility] 03-28-2023 11:36-0400 Diastolic blood pressure 80 mm[Hg] Javier DOWNS [facility] 03-28-2023 11:36-0400 Heart rate 84 /min Javier DOWNS [facility] 03-28-2023 11:36-0400 Respiratory rate 16 /min Javier DOWNS [facility] 03-28-2023 11:36-0400 Systolic blood pressure 135 mm[Hg] Javier DOWNS [facility] 01-03-2023 11:30-0400 Body height 177.8 cm Carrie Bel Other [facility] 01-03-2023 11:30-0400 Body mass index (BMI) [Ratio] 45.59 kg/m2 Carrie Bel Other [facility] 01-03-2023 11:30-0400 Body weight 144.15 kg Carrie Bel Other [facility] 01-03-2023 11:30-0400 Diastolic blood pressure 75 mm[Hg] Carrie Bel Other [facility] 01-03-2023 11:30-0400 Respiratory rate 18 /min Carrie Bel Other [facility] 01-03-2023 11:30-0400 SaO2% (BldA) [Mass fraction] 95 % Carrie Bel Other [facility] 01-03-2023 11:30-0400 Systolic blood pressure 112 mm[Hg] Carrie Bel Other [facility] 02-14-2020 14:16-0400 BP Diastolic 79 mm[Hg] [facility] [place] 02-14-2020 14:16-0400 BP Systolic 118 mm[Hg] [facility] [place] 02-14-2020 14:16-0400 Pulse (Heart Rate) 87 /min Joshua Dunbar [facility], [place] 02-14-2020 14:16-0400 Pulse Oximetry 97 % Joshua Dunbar [facility] , [place] 02-14-2020 13:29-0400 Body Temperature 97.39 [degF] Joshua Dunbar [facility], [place] 02-14-2020 13:29-0400 Respiratory Rate 16 /min [facility] [place] Encounters Encounter Date Encounter Type Care Provider Facility Start: 06-26-2024 End: 06-26-2024 Bamboo flowsheet Shavonne Chowdary WEED SCIENCE RESEARCH TECHNICIAN Work Phone: [facility] Start: 06-26-2024 End: 06-26-2024 Bamboo flowsheet Shavonne Chowdary WEED SCIENCE RESEARCH TECHNICIAN Work Phone: [facility] Start: 06-26-2024 End: 06-26-2024 ambulatory Wendi X Orzech Facility:[facility] Start: 06-26-2024 End: 06-26-2024 Patient encounter procedure Wendi X Orzech [facility] Start: 06-26-2024 End: 06-26-2024 ambulatory SHAVONNE CHOWDARY Not Available Start: 06-26-2024 End: 06-26-2024 Office outpatient visit 25 minutes Shavonne Chowdary WEED SCIENCE RESEARCH TECHNICIAN Work Phone: [facility] Comment on above: Benign hypertension (CMS/HCC) (Primary Dx); SALVATORE on CPAP; Morbid obesity with body mass index (BMI) of 40.0 to 44.9 in adult (CMS/HCC); Needs flu shot; Mild persistent asthma with exacerbation (CMS/HCC); SCOT (generalized anxiety disorder) (CMS/HCC); Ventral hernia without obstruction or gangrene Start: 06-20-2024 End: 06-20-2024 Clinisync Result Encounter Generic External Data Provider [facility] Unsolicited Start: 06-20-2024 End: 06-20-2024 Clinisync Result Encounter Generic External Data Provider [facility] External [facility] Unsolicited Start: 02-21-2024 End: 02-21-2024 ambulatory SHAVONNE CHOWDARY Not Available Start: 02-21-2024 End: 02-21-2024 ambulatory Wendi X Orzech Facility:[facility] Start: 02-21-2024 End: 02-21-2024 Patient encounter procedure Wendi X Orzech [facility] Start: 01-23-2024 End: 01-23-2024 ambulatory Javier Karen NEVAEH Facility:[facility] Start: 01-23-2024 End: 01-23-2024 Patient encounter procedure Javier R NEVAEH [facility] Start: 12-21-2023 End: 12-21-2023 ambulatory SHAIKH NATHALY Not Available Start: 12-05-2023 End: 12-05-2023 ambulatory Javier Karen NEVAEH Facility:[facility] Start: 12-05-2023 End: 12-05-2023 Patient encounter procedure Javier Jones DOWNS [facility] Start: 09-29-2023 Bamboo flowsheet Shavonne Chowdary WEED SCIENCE RESEARCH TECHNICIAN Work Phone: [facility] Start: 09-29-2023 Bamboo flowsheet Shavonne Epi WEED SCIENCE RESEARCH TECHNICIAN Work Phone: [facility] Start: 09-29-2023 End: 09-29-2023 ambulatory SHAVONNE CHOWDARY Not Available Start: 09-29-2023 End: 09-29-2023 Office outpatient visit 25 minutes Shavonne Chowdary WEED SCIENCE RESEARCH TECHNICIAN Work Phone: [facility] Comment on [...] nodule Start: 09-26-2023 ambulatory Javier Starkeyi ty:ALONSO Martin Start: 09-15-2023 End: 09-16-2023 ambulatory Shavonne Chowdary PIPELINE SUPERINTENDENT DIVISION-BELT OPERATOR Facility:[facility] Start: 09-05-2023 End: 09-06-2023 ambulatory Shavonne Chowdary PIPELINE SUPERINTENDENT DIVISION-BELT OPERATOR Facility:[facility] Start: 04-21-2023 Telephone encounter Rafael sandoval MD Work Phone: Cardiothoracic Comment on above: Referral Information Start: 03-28-2023 End: 03-28-2023 Patient encounter procedure Javier DOWNS [facility] Start: 03-17-2023 End: 03-18-2023 ambulatory Shavonne Chowdary PIPELINE SUPERINTENDENT DIVISION-BELT OPERATOR Facility:[facility] Start: 03-07-2023 End: 03-07-2023 Patient encounter procedure Javier DOWNS [facility] Start: 01-18-2023 End: 01-18-2023 ambulatory DANIELE DRISCOLL . Facility: Start: 01-13-2023 End: 01-14-2023 ambulatory ADITHYA CHOWDARY Facility: Start: 01-03-2023 End: 01-03-2023 ambulatory Carrie Staples Other [facility] Start: 01-03-2023 Office outpatient vi sit 15 minutes Carrie Staples [facility] Start: 09-01-2022 End: 09-02-[address] DOCTOR LOVE Facility:[facility] Start: 07-28-2022 End: 07-29-2022 ambulatory ADITHYA CHOWDARY Facility:[facility] Start: 07-05-2022 End: 07-06-[address] DARIN CHAPA Facility:[facility] Start: 06-29-2022 End: 06-30-2022 ambulatory ADITHYA CHOWDARY Facility:[facility] Start: 03-03-2022 End: 03-04-2022 ambulatory ADITHYA CHOWDARY Facility:[facility] Start: 02-23-2022 End: 02-24-2022 ambulatory ADITHYA CHOWDARY Facility:[facility] Start: 02-14-2020 End: 02-14-2020 Emergency department patient visit JOSHUAMonisha PEREZ [facility] Start: 02-14-2020 End: 02-14-2020 Emergency department patient visit Joshua Perez Work Phone: [facility] ED Comment on above: Dyspnea and respirat ory abnormalities (Primary Dx) Start: 08-28-2014 End: 08-28-2014 Telephone encounter Italo Pruitt MD Work Phone: Orthopaedics Comment on above: Surgical Followup Procedures Date Procedure Procedure Detail Performing Clinician Start: 06-20-2024 ALL HGB HCT Generic Ex ternal Data Provider Start: 06-29-2022 PSA screening ADITHYA CHOWDARY Comment on above: Performed By: #### [facility] ####[facility] [address] [place] [address] [id number] Beck Start: 02-14-2020 Radiologic exam ches t [...] Treatment Date Care Activity Detail Author Start: 06-26-2024 End: 06-26-2024 Patient encounter procedure 06/26/2024 9:20 AM EST [facility] [address] [place] [address] Shavonne Chowdary, AJIT [address] [place] [phone] [facility] Start: 12-28-2023 End: 12-28-2023 Patient encounter procedure 12/28/2023 1:00 PM EDT [facility] [address] [place] [address] Shavonne Chowdary, AJIT [address] [place] [phone] [facility] Start: 09-29-2023 End: 09-29-2024 CBC W Auto Differential panel - Blood CBC and differential Lab Routine Benign hypertension (CMS/HCC) Expected: 09/29/2023 (Approximate), Expires: 09/29/2024 [facility] Work Phone: Comment on above: Expected: 09/29/2023 (Approximate), Expires: 09/29/2024 Start: 09-29-2023 End: 09-29-2024 Comprehensive metabolic 2000 panel - Serum or Plasma Comprehensive metabolic panel Lab Routine Pre-diabetes Expected: 09/29/2023 (Approximate), Expires: 09/29/2024 [facility] Comment on above: Expected: 09/29/2023 (Approximate), Expires: 09/29/2024 Start: 09-29-2023 End: 09-29-2024 Hemoglobin A1c measurement Hemoglobin A1c Lab Routine Pre-diabetes Expected: 09/29/2023 (Approximate), Expires: 09/29/2024 [facility] Comment on above: Expected: 09/29/2023 (Approximate), Expires: 09/29/2024 Start: 09-29-2023 End: 09-29-2024 Lipid 1996 panel - Serum or Plasma Lipid panel Lab Routine High cholesterol (CMS/HCC) Expected: 09/29/2023 (Approximate), Expires: 09/29/2024 [facility] Comment on above: Expected: 09/29/2023 (Approximate), Expires: 09/29/2024 Start: 09-29-2023 End: 09-29-2024 Microalbumin/Creatinine panel in random Urine Microalbumin / creatinine, urine ratio Lab Routine Benign hypertension (CMS/HCC) Pre-diabetes Expected: 09/29/2023 (Approximate), Expires: 09/29/2024 [facility] Comment on above: Expected: 09/29/2023 (Approximate), Expires: 09/29/2024 Start: 09-29-2023 End: 09-29-2024 Prostate specific Ag [Mass/volume] in Serum or Plasma PSA Lab Routine Screening for prostate cancer Expected: 09/29/2023 (Approximate), Expires: 09/29/2024 [facility] Comment on above: Expected: 09/29/2023 (Approximate), Expires: 09/29/2024 Start: 09-29-2023 End: 09-29-2024 Urinalysis complete panel - Urine Urinalysis with reflex microscopic (clean catch) Lab Routine Benign hypertension (CMS/HCC) Pre-diabetes Expected: 09/29/2023 (Approximate), Expires: 09/29/2024 [facility] Comment on above: Expected: 09/29/2023 (Approximate), Expires: 09/29/2024 Start: 04-22-2023 Influenza vaccination Influenza Vacc ine (#1) [facility] Start: 08-22-2022 Depression Assessment Depression Ass essment [facility] Start: 2021 Prostate Cancer Screening Discussion Prostate Cancer Screening Discussion [facility] Start: 04-22-2021 Influenza vaccination INFLUENZ A (Season Ended) [facility] Start: 04-22-2020 Influenza vaccination Flu vacc ine (Season Ended) [place], [place] Start: 2016 Screening for malign ant neoplasm of colon [place], [place] Start: 2016 Shingles Vaccine (1 of 2) Shingles Vaccine (1 of 2) [place] Start: 2016 SHINGRIX VACCINE (1 of 2) SHINGRIX VACCINE (1 of 2) [facility] Start: 2011 Cologuard (FIT-DNA) Cologuard (FIT-D NA) [facility] Start: 2011 Colonoscopy Colonoscopy [facility] Start: 2011 Colorectal Cancer Screening Colorectal Cancer Screening [facility] Start: [address] COLONOGRAPHY [facility] Start: 2011 DIABETES SCREEN DIABETES SCREEN [facility] Start: 2011 Diabetes Screening Diabetes Screenin g [facility] Start: 2011 Fecal Occult Blood Fecal Occult Bloo d [facility] Start: 2011 SIGMOIDOSCOPY SIGMOIDOSCOPY [facility] Start: 2006 Lipid panel Lipid screen [place], [place] Start: 2001 Lipid 1996 panel - S dayanara or Plasma Lipid Screening [facility] Start: 2001 LIPID SCREEN LIPID SCREEN [facility] Start: 1985 DTaP/Tdap/Td vaccine (1 - Tdap) DTaP/Tdap/Td vaccine (1 - Tdap) [place], [place] Start: 1985 Urine microalbumin profile [facility] Start: 1984 HEPATITIS C SCREENING HEPATITIS C SC REENING [facility] Start: 1984 HIV SCREENING HIV SCREENING [facility] Start: 1981 HIV screening HIV screen [place], [place] Start: 1978 Adult depression screening assessment DEPRESSION SCREENING [facility] Start: 1966 Covid-19 Vaccine (#1) Covid-19 Vacci ne (#1) [facility] Start: 1966 Creatinine measurement Creatinine mo nitoring [place], [place] Start: 1966 Hepatitis B Vaccine (1 of 3 - 3-dose series) Hepatitis B Vaccine (1 of 3 - 3-dose series) [facility] Start: 1966 Potassium monitoring Potassium monit oring [place], [place] Immunizations Immunization Date Immunization Notes Care Provider Claire jimenez 06-26-2024 influenza virus vaccine, unspecified formulation Wendi Watts [facility] Comment on above: Result Comment: 2023: PT TOLERATED INJECTION WELL WITH OUT NO ADVERSE REACTION DURING PROCEDURE 06-26-2024 Influenza, injectabl e, Madin Taina Canine Kidney, preservative free, quadrivalent Shavonne Epi WEED SCIENCE RESEARCH TECHNICIAN Work Phone: [facility] 07-02-2020 influenza virus vaccine, unspecified formulation Javier NEVAEH [facility] Payers Date Payer Category Payer Unknown [id number] 2014 [facility] BCBS [id number] 2014 Unknown BCBS BCBS OUT OF STATE xxxxxxxxxxxx 2014-Present [address] [place] [address] xxxxxxxxxxxx [id number] [id number] 2004 Unknown [id number] [id number]. [id number] 2004 Unknown [id number]. 1.13.159. [id number] 1966 Unknown [id number] 2.16.840.1.600638.3.579. 2.173 1966 Unknown [id number] 2.16.840.1.590026.3.579. 2.593 1966 Unknown [id number] 2.16.840.1.060251.3.579. 2.593 1966 Unknown [id number] 2.16.840.1.744094.3.579. 2.593 1966 Unknown [id number] 2.16.840.1.706898.3.579. 2.593 1966 Unknown [id number] 2.16.840.1.693758.3.579. 2.593 1966 Unknown [id number] 2.16.840.1.259449.3.579. 2.593 1966 Unknown [id number] 2.16.840.1.907293.3.579. 2.593 1966 Unknown [id number] 2.16.840.1.432148.3.579. 2.593 1966 Unknown [id number] 2.16.840.1.995585.3.579. 2.196 1966 Unknown [id number] 2.16.840.1.306346.3.579. 2.196 1966 Unknown [id number] 2.16.840.1.280396.3.579. 2.196 1966 Unknown [id number] 2.16.840.1.888485.3.579. 2.196 1966 Unknown [id number] 2.16.840.1.957950.3.579. 2.196 1966 Unknown [id number] 2.16.840.1.952744.3.579. 2.1259 1966 Unknown [id number] 2.16.840.1.539376.3.579. 2.1259 1966 Unknown [id number] 2.16.840.1.668282.3.579. 2.1259 1966 Unknown [id number] 2.16.840.1.614895.3.579. 2.1259 1966 Unknown [id number] 2.16.840.1.023149.3.579. 2.727 1966 Unknown [id number] 2.16.840.1.929110.3.579. 2.727 1966 Unknown [id number] 2.16.840.1.461613.3.579. 2.727 1966 Unknown [id number] 2.16.840.1.937110.3.579. 2.727 1966 Unknown [id number] 2.16.840.1.452851.3.579. 2.727 1959 Unknown [id number] Social History Date Type Detail Facility Start: 02-14-2020 End: 06-26-2024 Tobacco smoking status NVIS Former smoker [facility] History of tobacco use Cigarette Smoker [place], [place] Start: 1966 Sex Assigned At Not on file [place], [place] Exposure to SARS-CoV -2 (event) Unable to assess [place], [place] Start: 07-30-2014 Tobacco smoking status NVIS Current every day smoker [facility] Start: 07-30-2014 End: 09-29-2023 Cigarettes smoked current (pack per day) - Reported [facility] Start: 07-30-2014 Tobacco use and exposure Never used [facility] Start: 07-30-2014 End: 06-26-2024 Alcohol intake Current drinker of alcohol (finding) [facility] Start: 07-30-2014 Alcohol Comment social [facility] Start: 08-24-2023 End: 09-29-2023 Sex Assigned At [facility] Tobacco smoking status Never [facility] History of tobacco use Current smoker [facility] Start: 09-27-2023 Alcohol Comment monthly or less, caffeine more than 4 cups per day [facility] Within the last year , have you been afraid of your partner or ex-partner? No [facility] Do you belong to any clubs or organizations such as sabianist groups, unions, fraternal or athletic groups, or [...] to buy more. Never true [facility] History of tobacco use Passive smoker [facility] Start: 1965 Sex assigned at Male [facility] Start: 05-28-2024 Gender identity Identifies as male gender (finding) [facility] Start: 05-28-2024 Sexual orientation Heterosexual (finding) [facility] Functional Status Date Assessment Result Facility 06-26-2024 Functional Status N/A [facility] 02-21-2024 Functional Status N/A [facility] 12-05-2023 Functional Status N/A [facility] 03-28-2023 Functional Status N/A [facility] 03-07-2023 Functional Status N/A [facility] Clinical Notes 08-28-2014 to 06-26-2024 Shavonne Chowdary NP - 06/26/2024 9:59 AM Saranya Chowdary NP - 06/26/2024 9:52 AM FRANKLIN HERRON - 06/26/2024 9:20 AM Saranya Chowdary NP - 06/26/2024 9:20 AM EST Note Date & Type Note Facility 06-26-2024 Evaluation + Plan note Diagnostic Tests PendingTestosterone Level Total 06/26/24 [facility] 06-26-2024 History of Present illness Narrative Associated Problem(s): Ventral hernia Advised of red flags to go to ER for No symptoms at this time Associated Problem(s): SCOT (generalized anxiety disorder) ([facility]) Continues with taking buspar BID, helps with symptoms No adjustments needed at this time No SI/HI/Hallucinations Pt is on testosterone therapy now, start 1 1/2-2 months Images from the original note were not included. Marcel Wahl is a 59 y.o. male presents with chief complaint of No chief complaint on file. HPI: SALVATORE: wears PAP daily, approx 8 hours, if did not use this, he would be tired or sluggish Hypertension This is a chronic problem. The current episode started more than 1 year ago. The problem is unchanged. The problem is controlled. Pertinent negatives include no anxiety, blurred vision, chest pain, orthopnea, peripheral edema or shortness of breath. There are no associated agents to hypertension. Risk factors for coronary artery disease include dyslipidemia, male gender and obesity. Past treatments include OSMAR inhibitors and diuretics. The current treatment provides significant improvement. There are no compliance problems. SUBJECTIVE: MEDICATIONS: Current Outpatient Medications Medication Instructions albuterol HFA 90 mcg/act inhaler 2 puffs, Inhalation, Every 6 hours PRN busPIRone (BUSPAR) 10 mg, Oral, 2 times daily cyclobenzaprine (Flexeril) 10 MG tablet 1 tablet, 2 times daily PRN fluticasone (Flonase) 50 MCG/ACT nasal spray 2 sprays, Each Nostril, Daily hydroxychloroquine (Plaquenil) 200 MG tablet 1 tablet, 2 times daily lisinopril-hydroCHLOROthiazide 10-12.5 MG tablet 1 tablet, Oral, Daily montelukast (SINGULAIR) 10 mg, Oral, Nightly nabumetone (RELAFEN) 1,000 mg, 2 times daily tadalafil (CIALIS) 10 mg, Daily PRN Testosterone 1.62 % gel apply 2 (TWO) pumps topically EVERY MORNING ALLERGIES: Allergies Allergen Reactions Demerol Hcl [Meperidine] Hallucinations Meperidine Hcl Other Reaction(s): hallucination Morphine Other Reaction(s): hallucination Penicillin G GI intolerance REVIEW OF SYMPTOMS: Review of Systems Constitutional: Negative for activity change, appetite change and unexpected weight change. HENT: Negative for ear pain, nosebleeds, sneezing, trouble swallowing and voice change. Eyes: Negative for blurred vision, pain, discharge and visual disturbance. Respiratory: Negative for apnea, chest tightness, shortness of breath and wheezing. Cardiovascular: Negative for chest pain, orthopnea and leg swelling. Gastrointestinal: Negative for abdominal distention, blood in stool, constipation and diarrhea. Genitourinary: Negative for decreased urine volume, difficulty urinating, dysuria and hematuria. Musculoskeletal: Positive for arthralgias and back pain. Skin: Negative for color change. Neurological: Negative [...] aneurysm without rupture, unspecified portion of aorta ([facility]) 09/28/2023 Benign hypertension ([facility]) 09/28/2023 BPH associated with nocturia 09/28/2023 COVID-19 virus infection Diverticulitis DJD of right shoulder Erectile dysfunction of organic origin SCOT (generalized anxiety disorder) ([facility]) 08/18/2023 High cholesterol ([facility]) 09/28/2023 Insomnia Mild persistent asthma with exacerbation ([facility]) 09/28/2023 Controlled with singulair. Does not need rescue inhaler Morbid obesity with body mass index (BMI) of 40.0 to 44.9 in adult ([facility]) 09/28/2023 SALVATORE on CPAP 09/28/2023 Osteoarthritis 09/28/2023 [...] Renal cyst, left 09/28/2023 Spinal stenosis, lumbar 06/12/2014 Tortuous aorta (CMS/HCC) 09/28/2023 Ventral hernia 09/28/2023 3.9) ; Has [...] in his father. OBJECTIVE: Visit Vitals BP 122/82 (BP Location: Left arm, Patient Position: Sitting, BP Cuff Size: Large adult long) Pulse 64 Temp 98.1 F (Temporal) Resp 19 Ht 5' 10 Wt 307 lb 6.4 oz SpO2 97% BMI 44.11 kg/m Smoking Status Former BSA 2.62 m Physical Exam Vitals and nursing note reviewed. Constitutional: Appearance: Normal appearance. He is obese. HENT: Head: Normocephalic. Right Ear: External ear normal. Left Ear: External ear normal. Nose: Nose normal. Mouth/Throat: Mouth: Mucous membranes are moist. Pharynx: Oropharynx is clear. Eyes: Extraocular Movements: Extraocular movements intact. Conjunctiva/sclera: Conjunctivae normal. Neck: Vascular: No carotid bruit. Cardiovascular: Rate and Rhythm: Normal rate and regular rhythm. Pulses: Normal pulses. Heart sounds: Normal heart sounds. Pulmonary: Effort: Pulmonary effort is normal. Breath sounds: Normal breath sounds. No wheezing or rales. Abdominal: General: Bowel sounds are normal. Palpations: Abdomen is soft. Hernia: A hernia is present. Musculoskeletal: Cervical back: Neck supple. Right lower leg: No edema. Left lower leg: No edema. Skin: General: Skin is warm and dry. Capillary Refill: Capillary refill takes 2 to 3 seconds. Neurological: General: No focal deficit present. Mental Status: He is alert. Psychiatric: Mood and Affect: Mood normal. Behavior: Behavior normal. Thought Content: Thought content normal. Judgment: Judgment normal. ASSESSMENT AND PLAN: Follow up in about 6 months (around 12/24/2024) for Recheck. Problem List Items Addressed This Visit SCOT (generalized anxiety disorder) ([facility]) Continues with taking buspar BID, helps with symptoms No adjustments needed at this time No SI/HI/Hallucinations SALVATORE on CPAP Compliant with PAP Approx hours of use daily: Mild persistent asthma with exacerbation ([facility]) Relevant Medications albuterol HFA 90 mcg/act inhaler Benign hypertension ([facility]) - Primary Please check blood pressure daily and record DASH diet Limit caffeine Take medication as directed Contact office if chest pain, pressure, dizziness, shortness of breath, swelling legs Recommend slow position changes Ventral hernia Advised of red flags to go to ER for No symptoms at this time Morbid obesity with body mass index (BMI) of 40.0 to 44.9 in adult ([facility]) Discussed with patient their BMI (actual, verses recommended). We have also discussed lifestyle modifications: attempts to perform physical activity as chronic conditions allow, also to monitor dietary intake: increasing protein/fruits/veggies and lowering carb intake (unless contraindicated). Limit sodas, juices, and sugary drinks. Needs flu shot Relevant Orders Flu vaccine, MDCK, quadrivalent, PF ([id number]) (Flucelvax single dose syringe) (Completed) Associated Problem(s): Morbid obesity with body mass index (BMI) of 40.0 to 44.9 in adult ([facility]) Discussed with patient their BMI (actual, verses recommended). We have also discussed lifestyle modifications: attempts to perform physical activity as chronic conditions allow, also to monitor dietary intake: increasing protein/fruits/veggies and lowering carb intake (unless contraindicated). Limit sodas, juices, and sugary drinks. Associated Problem(s): Benign hypertension (CMS/HCC) Please check blood pressure daily and record DASH diet Limit caffeine Take medication as directed Contact office if chest pain, pressure, dizziness, shortness of breath, swelling legs Recommend slow position changes Associated Problem(s): SALVATORE on CPAP Compliant with PAP Approx hours of use daily: documented in this encounter [facility] 02-21-2024 Hospital Discharge instructions Patient Education 02/21/2024 [...] therapy. Follow these instructions at home: Take epyf-uuy-nrspkgx and prescription medicines only as told by [...] provider. Document Revised: 04/09/2021 Document Reviewed: 04/09/2021 [employer] Patient Education 2022 [employer]. 02/21/2024 12:25:41 Benign Prostatic Hyperplasia Benign Prostatic [...] urethra. Follow these instructions at home: Take bamq-ems-pdzpwwm and prescription medicines only as told by [...] provider. Document Revised: 02/24/2022 Document Reviewed: 02/24/2022 [employer] Patient Education 2022 [employer] 02/21/2024 12:25:39 Erectile Dysfunction Erectile Dysfunction Erectile [...] Follow these instructions at home: Medicines Take kjqp-tku-exbojuf and prescription medicines only as told by [...] provider. Document Revised: 11/04/2021 Document Reviewed: 11/04/2021 [employer] Patient Education 2022 [employer]. Follow Up Care 02/01/2024 11:50:53 With:NEVAEH HARKINS, Javier Jones, URL Address: [address] [place], [place] [id number]- When: Unknown Comments:Cystoscopy [facility] 02-21-2024 Evaluation + Plan note Diagnostic Tests PendingTestosterone Level Total 02/21/24 [facility] 02-21-2024 Note Patient Education Urology Hypogonadism, [...] Follow these instructions at home: ? Take aqis-vlv-qlkdeln and prescription medicines only as told by [...] provider. Document Revised: (more content not included)... [facility] 12-05-2023 Hospital Discharge instructions Follow Up Care 12/05/2023 15:08:17 With:NEVAEH HARKINS, Javier Jones, URL Address: [facility] [address] , [place] [address]- [phone] When: Unknown [facility] [place] 12-05-2023 Hospital Discharge instructions Patient Education [...] Follow these instructions at home: Medicines Take sbok-ljw-irlihrb and prescription medicines only as told by [...] provider. Document Revised: 11/04/2021 Document Reviewed: 11/04/2021 [employer] Patient Education 2022 [employer]. Follow Up Care 09/27/2023 10:13:00 With:NEVAEH HARKINS, Javier Jones, URL Address: [facility] [address] , [place] [address]- [phone] When: Unknown Comments:f/u for [facility] teaching [facility] [place] 09-29-2023 History of Present illness Narrative [...] nodule , is going to see a slagger, hx of 50 pack year smoking, quit [...] spray 2 sprays, Each Nostril, Daily HYDROcodone-acetaminophen (Tofte) 5-325 MG tablet 1 tablet, Oral, Every [...] aneurysm without rupture, unspecified portion of aorta ([facility]) 09/28/2023 Benign hypertension ([facility]) 09/28/2023 BPH associated with nocturia 09/28/2023 COVID-19 virus infection Diverticulitis DJD of right shoulder Erectile dysfunction of organic origin SCOT (generalized anxiety disorder) ([facility]) 08/18/2023 High cholesterol ([facility]) 09/28/2023 Insomnia Mild persistent asthma with exacerbation ([facility]) 09/28/2023 Controlled with singulair. Does not need rescue inhaler Morbid obesity with body mass index (BMI) of 40.0 to 44.9 in adult ([facility]) 09/28/2023 SALVATORE on CPAP 09/28/2023 Osteoarthritis 09/28/2023 [...] 09/28/2023 Spinal stenosis, lumbar 09/28/2023 Tortuous aorta ([facility]) 09/28/2023 Ventral hernia 09/28/2023 3.9) ; Has [...] Addressed This Visit SCOT (generalized anxiety disorder) ([facility]) SALVATORE on CPAP Wears PAP at least 8 hours daily Mild persistent asthma with exacerbation ([facility]/HCC) Does not use rescue inhaler, sxs are controlled with singulair Benign hypertension ([facility]/HCC) - Primary No changes in dose of meds at this time Relevant Orders CBC and differential Microalbumin / creatinine, urine ratio Urinalysis with reflex microscopic (clean catch) Aortic aneurysm without rupture, unspecified portion of aorta (CMS/HCC) Saw vascular people will continue to have this monitored High cholesterol ([facility]/HCC) Relevant Orders Lipid panel Screening for prostate cancer Relevant Orders PSA Pre-diabetes Check labs Relevant Orders Comprehensive metabolic panel Hemoglobin A1c Microalbumin / creatinine, urine ratio Urinalysis with reflex microscopic (clean catch) Lung nodule Being referred to pulmonogist Other Visit Diagnoses Morbid (severe) obesity due to excess calories (E66.01) Body mass index [BMI] 45.0-49.9, adult (Z68.42) documented in this encounter [facility] 05-04-2023 Miscellaneous Notes I have called and discussed with Marcel Brown recommendations which are there is no indication for surgery. 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 Also, blood pressure control is essential to keep aorta size stable. He verbalized understanding Oksana Spear RN diagnosis: aorta 4.1 cm on echo history: obesity, chronic back pain, anxiety, asthma, HTN, SALVATORE, Patient has been communicating via Dr. Shaikh Liang's office. [place] nurse [phone] Diagnosis: aneurysm All records are in Epic Left a VM. Need: explain the process and let patient know that I am in contact with his Dr's office trying to get all his records. Currently waiting for CT images. documented in this encounter [facility] 03-28-2023 Hospital Discharge instructions Patient Education 03/28/2023 [...] Follow these instructions at home: Medicines Take ieqz-knr-iyesrzg and prescription medicines only as told by [...] provider. Document Revised: 11/04/2021 Document Reviewed: 11/04/2021 [employer] Patient Education 2022 [employer]. Follow Up Care 03/07/2023 10:38:37 With:NEVAEH HARKINS, Javier Jones, URL Address: [facility] [address] , [place] [address] [phone] When:Within 6 Month(s) Comments:T level [facility] 03-17-2023 Note Chief Complaint Patient is being [...] 3 grown children. He lives independently in [place]. Patient reports daily nicotine use via nicotine lozenges. He also reports daily recreational marijuana use. Patient otherwise denies recreational drugs and denies alcohol. 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 He states no [place] of Workmen's Compensation or third-constitution party insurance claims based on today's office visit. [...] Moist, no ev (more content not included)... [facility] 03-07-2023 Hospital Discharge instructions Patient [...] provider gives to you. In general: Take xpvg-bcz-fihktqy and prescription medicines only as told by [...] provider. Document Revised: 02/02/2021 Document Reviewed: 02/02/2021 [employer] Patient Education 2022 [employer]. Follow Up Care 02/18/2023 09:13:02 With:NEVAEH HARKINS, Javier Jones, URL Address: [facility] [address] , [place] [address]- [phone] When: Unknown Comments:CT scan and PSA [facility] 01-13-2023 Note PROCEDURE: XR HIP RT 2 3V WO PELVIS HISTORY: Pain in right hip joint ; no known injury COMPARISON: None. FINDINGS: BONES:No fracture, acute abnormality, or significant arthropathy. SOFT TISSUES:No visible soft tissue swelling. EFFUSION:None visible. OTHER: Negative. IMPRESSION: 1. No acute bone abnormality or significant degenerative joint disease. Electronically authenticated by: LISSETTE MCCAIN Date: 2023-01-13 10:45 [facility] 01-03-2023 Evaluation note Encounter Date Diagnosis Assessment [...] with sciatica home care material was printed [facility] Other 12-07-2022 NotePROCEDURE: XR SHOULDER RT 2V [...] Electronically authenticated by: LISSETTE MCCAIN Date: 2022-07-28 13:47[facility]11-15-2022 NotePROCEDURE: XR ANKLE LT MIN 3 [...] Electronically authenticated by: DARIN CHAPA Date: 2022-07-06 07:39[facility]11-15-2022 NotePROCEDURE: XR ANKLE LT MIN 3 [...] Electronically authenticated by: DARIN CHAPA Date: 2022-07-06 07:39[facility]01-07-2015 Miscellaneous Notes* Telephone Encounter - Coco [...] may contact [place] at their home # [phone] with questions/concerns, OK to leave a message [...] on 09/13/14. Patient may be reached at [phone] to advise, it is ok to leave a message if no answer. [facility] Future Appointments Appointment Date:03/28/2023 11:15:00 AM Scheduled Provider:Javier DOWNS MD Location:[facility] Appointment Type:URO Office Visit Diagnostic Tests Pending * PSA Total 03/07/23 [facility] evaluation + Plan note Future Appointments Appointment Date:09/26/2023 09:15:00 AM Scheduled Provider:Javier DOWNS MD Location:[facility] Appointment Type:URO Office Visit Diagnostic Tests Pending * Testosterone Level Total 03/28/23 [facility] evaluation + Plan note Future Appointments Appointment Date:01/23/2024 11:30:00 AM Scheduled Provider:Javier DOWNS MD Location:[facility] Appointment Type:URO Office Visit [facility] evaluation note* Diagnosis Benign hypertension (CMS/HCC)- [...] elsewhere classified [facility] Diagnosis Benign hypertension (CMS/HCC)- Primary Essential [...] Other diseases of lung, not elsewhere classified Lumbosacral spondylosis without myelopathy- Primary Benign hypertension (CMS/HCC)- Primary Essential hypertension, benign Morbid obesity with body mass index (BMI) of 40.0 to 44.9 in adult (CMS/HCC) SALVATORE on CPAP Spinal stenosis of lumbar region with neurogenic claudication Bilateral hand pain Benign hypertension (CMS/HCC)- Primary Essential hypertension, benign SALVATORE on CPAP Morbid obesity with body mass index (BMI) of 40.0 to 44.9 in adult (CMS/HCC) Needs flu shot Need for prophylactic vaccination and inoculation against influenza Mild persistent asthma with exacerbation (CMS/HCC) Unspecified asthma, with exacerbation SCOT (generalized anxiety disorder) ([facility]/HCC) Generalized anxiety disorder Ventral hernia without obstruction or gangrene Unspecified ventral hernia without mention of obstruction or gangrene [facility] [...] Hospitalization History see above Hospitalization History diverticulitis [facility] Other Hospital course Narrative No data available for this section [facility] Hospital Discharge instructions No data available for this section [facility] progress note No data available for this section [facility] Discharge Instructions * Attachments The following attachments cannot be sent through Care Everywhere. 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 Pt states he was just d/c from [facility] and they told him basically that I was fat and lazy Reason Onset Date Comments Surgical Followup 08/28/2014 Reason Comments Referral Information (unrecognized sect ion and content) No Status Records FoundNo Status Records FoundNo Status Records FoundNo Status Records FoundNo Status Records FoundNo Status Records Found INFORMATION SOURCE (unrecogn ized section and content) DATE CREATED AUTHOR 03/11/[address] [facility] DATE CREATED AUTHOR AUTHOR'S ORGANIZ ATION 01/28/2023 [facility] DATE CREATED AUTHOR AUTHOR'S ORGANIZ ATION 05/08/2023 [facility] DATE CREATED AUTHOR AUTHOR'S ORGANIZ ATION 09/16/2023 [facility] DATE CREATED AUTHOR AUTHOR'S ORGANIZ ATION 06/27/[address] [facility] DATE CREATED AUTHOR AUTHOR'S ORGANIZ ATION 06/27/2024 [facility] Source Comments (unrecognize d section and content) In the event this informatio n is protected by the Federal Confidentiality of Alcohol and Drug Abuse Patient Records regulations: The Federal rules restrict any use of the information to criminally investigate or prosecute any alcohol or drug abuse patient.[facility] the event this information is protected by the Federal Confidentiality of Alcohol and Drug Abuse Patient Records regulations: The Federal rules restrict any use of the information to criminally investigate or prosecute any alcohol or drug abuse patient.[facility] Patient Care team informatio n (unrecognized section and content) Personnel Name: SHAVONNE CHOWDARY CNP Address: Address: [address] [place] [id number] Locker Room Attendant Relationship Specialty Start Date End Date Rom Faye Jr. PCP - General 02/23/05 Rafael Brown MD [address] [place] [address] Surgeon Cardiac Surg 05/04/23 05/05/23 Locker Room Attendant Relationship Specialty Start Date End Date Parth Hdz MD PCP - General Family Medicine 02/17/23 Locker Room Attendant Relationship Specialty Start Date End Date Parth Hdz MD PCP - General Family Medicine 02/17/23 Locker Room Attendant Relationship Specialty Start Date End Date Parth Hdz MD [address] [place] [address] PCP - [facility] 02/17/23 Locker Room Attendant Relationship Specialty Start Date End Date Parth Hdz MD [address] [place] [address] PCP - [facility] 02/17/23 Locker Room Attendant Relationship Specialty Start Date End Date Parth Hdz MD [address] [place] [address] PCP - [facility] 02/17/23 FOR RECORDS PERTAINING TO PATIENTS WHO [...] BE BASED ON THE PRIMARY CLINICAL RECORDS. [facility] [employer], [facility]. provides no warranty or guarantee of the accuracy or completeness of information in this document.
[2024-07-11 14:00] LABS: Basophils Absolute Auto 0.1 10^3/uL (0.0-0.1); Basophils Percent Auto 0.7 % (0.2-2.0); Eosinophils Absolute Auto 0.2 10^3/uL (0.0-0.7); Eosinophils Percent Auto 2.2 % (0.9-7.0); Hematocrit 41.7 % (42.0-54.0); Hemoglobin 13.8 g/dL (14.0-18.0); Immature Granulocytes Abs Auto 0.02 10^3/uL (0.00-0.03); Immature Granulocytes Pct Auto 0.3 % (0.0-0.5); Lymphocytes Absolute Auto 1.7 10^3/uL (1.2-3.8); Lymphocytes Percent Auto 25.4 % (20.5-60.0); Mean Corpuscular HGB Conc 33.1 g/dL (29.9-35.2); Mean Corpuscular Hemoglobin 32.5 pg (25.9-34.0); Mean Corpuscular Volume 98.3 fL (80.0-94.0); Monocytes Absolute Auto 0.5 10^3/uL (0.3-0.8); Monocytes Percent Auto 8.1 % (1.7-12.0); Neutrophils Absolute Auto 4.2 10^3/uL (1.4-6.5); Neutrophils Percent Auto 63.3 % (43.0-75.0); Platelet Count 287 10^3/uL (150-450); Red Blood Count 4.24 10^6/uL (4.70-6.10); Red Cell Distribution Width 11.5 % (11.0-15.0); White Blood Count 6.7 10^3/uL (4.0-11.0)
[2024-07-11 14:08] LABS: Erythrocyte Sedimentation Rate 1 mm/hr (<=20)
[2024-07-11 14:25] LABS: Alanine Aminotransferase 24 U/L (16-63); Albumin Globulin Ratio 1.2; Albumin Level 3.4 g/dL (3.4-5.0); Alkaline Phosphatase 54 U/L (46-116); Anion Gap 12.3; Aspartate Amino Transferase 17 U/L (15-37); BUN Creatinine Ratio 17.1; Bilirubin Total 0.4 mg/dL (0.2-1.0); C Reactive Protein 0.51 mg/dL (<=0.50); Calcium 8.2 mg/dL (8.5-10.1); Carbon Dioxide 28.8 mmol/L (21.0-32.0); Chloride 106 mmol/L (98-107); Estimated GFR (African America >60 (>=60 mL/min/1.73m^2); Estimated GFR (Non-African Ame >60 (>=60 mL/min/1.73m^2); Globulin 2.8 g/dL; Glucose 90 mg/dL (74-106); Potassium 4.1 mmol/L (3.5-5.1); Sodium 143 mmol/L (136-145); Total Protein 6.2 g/dL (6.4-8.2)
== END 2024-07-11 13:36 | disposition home or self-care (01) ==
LOC: LAB 13:38
PROVIDERS: PCP Nurse Practitioner; Visit Provider Registered Nurse
DX: M15.0 Primary generalized (osteo)arthritis (principal); Z79.899 Other long term (current) drug therapy
CPT/HCPCS: 36415; 80053; 85025; 85652; 86140

== ENCOUNTER 2024-09-13 11:22 | Outpatient (OUT) | payer BC, SELFPAY ==
--- NOTE | 2024-09-13 11:42 | XR_ITS ---
The [address] [address] Patient Name: LADONNA TIM MRN: [id number] date: 1965 Sex: M Assigned Patient Location: RAD Current Patient Location: RAD Accession/Order Number: [id number] Exam Date: 09/13/2024 11:35 Report Date: 09/13/2024 12:08 At the request of: ANNA SOSA Procedure: XR chest 2V EXAM: CHEST 2 VIEWS HISTORY: Chronic Obstructive Pulmonary Disease With Exacerbation TECHNIQUE: PA and lateral views chest. COMPARISON: None. FINDINGS: The lungs are clear. There is no focal lung consolidation, pleural effusion or pneumothorax. Pulmonary vasculature is within normal limits. There is tortuosity of the thoracic aorta. Heart size is normal. Right shoulder arthroplasty noted. XR/XR chest 2V IMPRESSION: 1. No acute cardiopulmonary disease. Electronically authenticated by: KOBE LOFTON Date: 09/13/2024 12:08
== END 2024-09-13 11:23 | disposition home or self-care (01) ==
LOC: RAD 11:23
PROVIDERS: PCP Nurse Practitioner; Visit Provider Nurse Practitioner
DX: J44.9 Chronic obstructive pulmonary disease, unspecified (principal); J44.1 Chronic obstructive pulmonary disease with (acute) exacerbation; R06.2 Wheezing
CPT/HCPCS: 71046

== ENCOUNTER 2024-09-29 11:02 | Outpatient (OUT) | payer BC, SELFPAY ==
--- OUTSIDE RECORDS SUMMARY | 2024-09-29 11:06 | XMS_ITS | CCD ---
Author Organization [facility] Team Providers Care Bruise Trimmer Name Role Phone Es Love Primary Care Provider JOSHUA PEREZ Attending Unavailable ES LOVE Primary Care Unavailable Rom Faye Jr. Primary Care Provider Unava ilCarrie Perez Unavailable AICHHOLZ, LEAD BURNER HELPER SHAVONNE Consulting Unavailable AICHHOLZ, LEAD BURNER HELPER SHAVONNE Primary Care Unavailable AICHHOLZ, LEAD BURNER HELPER SHAVONNE Admitting Unavailable AICHHOLZ, LEAD BURNER HELPER SHAVONNE Attending Unavailable AICHHOLZ, LEAD BURNER HELPER SHAVONNE Primary Care Unavailable MISC, DR MARIE Consulting Unavailable MISC, DR MARIE Admitting Unavailable MISC, DR MARIE Attending Unavailable AICHHOLZ, LEAD BURNER HELPER SHAVONNE Referring Unavailable AICHHOLZ, LEAD BURNER HELPER SHAVONNE Primary Care Unavailable MISC, DR MARIE Consulting Unavailable MISC, DR MARIE Admitting Unavailable MISC, DR MARIE Attending Unavailable AICHHOLZ, LEAD BURNER HELPER SHAVONNE Attending Unavailable AICHHOLZ, LEAD BURNER HELPER SHAVONNE Consulting Unavailable AICHHOLZ, LEAD BURNER HELPER SHAVONNE Primary Care Unavailable AICHHOLZ, LEAD BURNER HELPER SHAVONNE Admitting Unavailable ZIEBDR LISSETTE TELLEZ Consulting Unavailable MISC, DR MARIE Attending Unavailable MISC, DR MARIE Consulting Unavailable MISC, DR MARIE Admitting Unavailable AICHHOLZ, LEAD BURNER HELPER SHAVONNE Primary Care Unavailable DANIELE MOLINA Consulting UnavailROMA Modi Admitting Unavailable ROMA CHAHAL Attending Unavailable AICHHOLZ, LEAD BURNER HELPER SHAVONNE Primary Care Unavailable AICHHOLZ, LEAD BURNER HELPER SHAVONNE Primary Care Unavailable DR LISSETTE MCCAIN Consulting Unavailable SHAIKH LIANG H Admitting Unavailable SHAIKH Ayaan LIANG Attending Unavailable SHAIKH Ayaan LIANG Consulting Unavailable INDIALANTIC, DR DARIN Spencer Consulting Unavailable AICHHOLZ, LEAD BURNER HELPER SHAVONNE Primary Care Unavailable AICHHOLZ, LEAD BURNER HELPER SHAVONNE Admitting Unavailable AICHHOLZ, LEAD BURNER HELPER SHAVONNE Attending Unavailable AICHHOLZ, LEAD BURNER HELPER SHAVONNE Consulting Unavailable AICHHOLZ, SHAVONNE J Primary Care Physician [phone] Yunier Frost, Rom Coy Primary Care Provider Unava ilable Kevin HARKINS, Rafael Unavailable Parth Hdz MD Primary Care Provider [phone] Wilder HARKINS, Parth Primary Care Provider [phone] Wendi Watts Attending Unavailable Javier DOWNS Attending Unavailable NEVAEH, Javier Jones Attending Unavailable Orzech, Wendi X Attending Unavailable Javier DOWNS Attending Unavailable Orzech, Wendi X Attending Unavailable Aichholz DIRECTOR OF AGRONOMY-LEAD BURNER HELPER, Shavonne Quesada Primary Care Unava ilable Claritza DIRECTOR OF AGRONOMY-LEAD BURNER HELPER, Manuel Mcintosh Attending Unav ailable Aichholz DIRECTOR OF AGRONOMY-LEAD BURNER HELPER, Shavonne Sangita Primary Care Unava ilable Claritza DIRECTOR OF AGRONOMY-LEAD BURNER HELPER, Manuel Mcintosh Attending Unav ailable AICHHOLZ, SHAVONNE Attending Unavailable AICHHOLZ, SHAVONNE Attending Unavailable AICHHOLZ, SHAVONNE Attending Unavailable SHAIKH LIANG Attending Unavailable AICHHOLZ, SHAVONNE Attending Unavailable AICHHOLZ, SHAVONNE Attending Unavailable AICHHOLZ, SHAVONNE Attending Unavailable Allergies Allergy Classification Reported Allergen(s) Allergy Type Date of Onset Reaction(s) Facility Opioid Agonists (2 sources) Meperidine Drug Allergy 06-10-20 14 Mental Status Change [facility] Penicillins (antibiotic) (1 source) Penicillins Drug Allergy 03-03-20 05 [facility] Work Phone: (20 sources) Meperidine; Translations: [meperidine] Drug Allergy 02-14-20 20 Hallucinations (finding), Hallucinations [place], [place] (20 sources) Morphine; Translations: [morphine] Drug Allergy 06-10-20 14 Hallucinations (finding), Mental Status Change [place], [place] (2 sources) Penicillins; Translations: [penicillins] Propensity to adverse reactions to drug 02-14-20 20 [place], [place] (8 sources) Penicillin; Translations: [penicillin] Drug Allergy Nausea and vomiting (disorder) [facility] (20 sources) Penicillin G Drug Allergy 08-24-19 24 GI intolerance [employer] Other (3 sources) Meperidine; Translations: [Demerol] Drug Allergy 05-17-20 15 [facility] (1 source) Morphine Drug Allergy 11-20-19 13 [facility] (1 source) Penicillins Drug allergy (disorder) 11-20-19 13 [facility] (1 source) Meperidine Drug Allergy 06-10-20 14 Mental Status Change [facility] (1 source) Penicillins Propensity to adverse reactions 03-03-20 05 [facility] Work Phone: (20 sources) Meperidine Drug Allergy 08-24-19 24 [facility] (1 source) Morphine; Translations: [Morphine Sulfate] Drug Allergy [facility] Repository Medications Current Medications Medication Drug Class(es) Dates Sig (Normalized) Sig (Original) acetaminophen 325 mg / HYDROcodone bitartrate 5 mg oral tablet (5 sources) Opioid Agonist Start: 01-24-2023 End: 09-29-2023 take 1 tablet by mouth once HYDROcodone-acetami nophen ([place]) 5-325 MG tablet Take 1 tablet by [...] ashok th every 6 hours as needed. albuterol 0.83 mg/ml inhalation solution (19 sources) beta2-Adrenergic Agonist Start: 09-13-2024 End: 09-28-2024 albuterol (2.5 MG/3ML) 0.083% nebulizer solution Indications: COPD mixed type (CMS/HCC) Take 3 mL (2.5 mg) by nebulization every 6 (six) hours if needed for wheezing for up to 15 days 180 mL 1 09/13/2024 09/28/2024 Active Start: 06-26-2024 End: 07-26-2024 take 2 puff(s) by inhalation every six hours for wheezing albuterol HFA 90 mcg/act inhaler Indications: Mild persistent asthma with exacerbation (CMS/HCC) Inhale 2 puffs every 6 (six) hours if needed for wheezing or shortness of breath 18 g 06/26/2024 Active ProAir HFA Not-T aking amitriptyline hydrochloride 50 mg oral tablet (20 sources) Tricyclic Antidepressant Start: 09-05-2024 End: 12-04-2024 take 1 tablet by mouth at bedtime amitriptyline (Elavil) 50 MG tablet Indications: Lumbosacral spondylosis without myelopathy Take 1 tablet (50 mg) by mouth at bedtime 90 tablet 09/05/2024 12/04/2024 Active Start: 03-07-2023 End: 08-14-2024 take 1 tablet by mouth at bedtime amitriptyline (Elavil) 50 MG tablet Indications: Other intervertebral disc degeneration, lumbar region Take 1 tablet (50 mg) by mouth at bedtime 90 tablet 1 11/29/2023 05/16/2024 Discontinued Amitriptyline HC l Active take 1 tablet by ashok th once daily amitriptyline (ELAVIL) 25 MG tablet Take 25 mg by mouth nightly 0 Active benzonatate 200 mg oral capsule (2 sources) Non-narcotic Antitussive Start: 09-05-2024 End: 09-12-2024 take 1 capsule by mouth three times daily as needed for cough benzonatate (Tessalon) 200 MG capsule Indications: Upper respiratory tract infection, unspecified type Take 1 capsule (200 mg) by mouth 3 (three) times a day as needed for cough for up to 7 days Do not crush or chew. 21 capsule 09/05/2024 09/12/2024 Active 120 actuat budesonide 0.16 mg/actuat / formoterol fumarate 0.0048 mg/actuat / glycopyrrolate 0.009 mg/actuat metered dose inhaler (5 sources) Corticosteroid, beta2-Adrenergic Agonist Start: 09-13-2024 End: 10-13-2024 take 2 puff(s) by mouth in the morning Budeson-Glycopyrro l-Formoterol (Breztri Aerosphere) 160-9-4.8 MCG/ACT aerosol Indications: COPD mixed type (CMS/HCC) Inhale 2 puffs in the morning and 2 puffs before bedtime. Rinse mouth after use. 10.7 g 2 09/13/2024 10/13/2024 Active busPIRone hydrochloride 10 mg oral tablet (20 sources) Start: 11-29-2023 End: 08-14-2024 take 1 tablet by mouth in the morning busPIRone (Buspar) 10 MG tablet Indications: SCOT (generalized anxiety disorder) (CMS/HCC) Take 1 tablet (10 mg) by mouth in the morning and 1 tablet (10 mg) before bedtime. 180 tablet 1 05/16/2024 Active Start: 08-18-2023 take 1 tablet by ashok th in the morning busPIRone (Buspar) 10 MG tablet Indications: SCOT (generalized anxiety disorder) (CMS/HCC) Take 1 tablet (10 mg) by mouth in the morning and 1 tablet (10 mg) before bedtime. 60 tablet 2 08/18/2023 Active cyclobenzaprine hydrochloride 10 mg oral tablet (20 sources) Muscle Relaxant Start: 03-07-2023 take 1 [...] spasms Active Cyclobenzaprine HCl at bedtime Active doxycycline hyclate 100 mg oral tablet (5 sources) Tetracycline-class Drug Start: 09-05-2024 End: 09-15-2024 doxycycline (Vibra-Tabs) 100 MG tablet Indications: Upper respiratory tract infection, unspecified type Take 1 tablet (100 mg) by mouth in the morning and 1 tablet (100 mg) before bedtime. Do all this for 10 days. Take with a full glass of water and do not lie down for at least 30 minutes after.. 20 tablet 09/05/2024 09/15/2024 Active fluticasone propionate 0.05 mg/actuat metered dose nasal spray (20 sources) Corticosteroid Start: 09-11-2024 End: 10-11-2024 take 2 spray(s) nasal route once daily fluticasone (Flonase) 50 MCG/ACT nasal spray Indications: Non-seasonal allergic rhinitis, unspecified trigger Administer 2 sprays into each nostril Daily 16 g 5 09/11/2024 10/11/2024 Active Start: 03-28-2024 End: 04-27-2024 take 2 spray(s) nasal route once daily [...] Start: 03-07-2023 fluticasone Na fortino 0.05 mg/inh [place] Refill(s) 0 Start Date: 03/07/23 Status: Ordered Fluticasone Prop ionate 50 MCG/ACT Nasal for 30 Days Active hydroCHLOROthiazide (2 sources) Thiazide Diuretic hydroCHLOROthi azide Active take 1 tablet by mouth once nafisa y hydroCHLOROthiazide (HYDRODIURIL) 25 MG tablet Take 25 mg by mouth daily 0 Active hydroCHLOROthiazide 12.5 mg / lisinopril 10 mg oral tablet (20 sources) Thiazide Diuretic, Angiotensin Converting Enzyme Inhibitor Start: 10-31-2023 End: 12-04-2024 take 1 tablet by mouth once daily lisinopril-hydroCHLOROthiazide 10-12.5 MG tablet Indications: Essential (primary) hypertension (CMS/HCC) Take 1 tablet by mouth Daily 90 tablet 1 09/05/2024 12/04/2024 Active Start: 03-07-2023 hydrochlorothi azide-lisinopril 12.5 mg-10 mg Tab Refill(s) 0 Start Date: 03/07/23 Status: Ordered hydroxychloroquine sulfate 200 mg oral tablet (17 sources) Antimalarial, Antirheumatic Agent Start: 04-10-2024 take [...] mirabegron 50 mg extended release oral tablet (12 sources) beta3-Adrenergic Agonist Start: 12-05-2023 End: 06-26-2024 take 1 tablet by mouth once daily Myrbetriq 50 mg oral tablet, extended release 50 mg = 1 tab(s), Oral, Daily, # 30 tab(s), Refills(s) 11, Pharmacy: [id number], 178, cm, 12/05/23 13:51:00 EDT, Height/Length Dosing, 143, kg, 12/05/23 13:51:00 EDT, Weight Dosing Start Date: 12/05/23 Status: Ordered montelukast 10 mg oral tablet (20 sources) Leukotriene Receptor Antagonist Start: 03-07-2023 End: 10-14-2024 take 1 tablet by mouth at bedtime montelukast (Singulair) 10 MG tablet Indications: Mild intermittent asthma with (acute) exacerbation (CMS/HCC) Take 1 tablet (10 mg) by mouth at bedtime 90 tablet 1 07/16/2024 10/14/2024 Active Montelukast Sodi um Active nabumetone 500 mg oral tablet (20 sources) Nonsteroidal Anti-inflammatory Drug Start: 12-05-2023 take [...] Status: Ordered predniSONE 20 mg oral tablet (11 sources) Start: 09-05-2024 End: 09-10-2024 take 1 tablet by mouth in the morning predniSONE (Deltasone) 20 MG tablet Indications: Upper respiratory tract infection, unspecified type Take 1 tablet (20 mg) by mouth in the morning and 1 tablet (20 mg) in the evening. Take before meals. Do all this for 5 days. 10 tablet 09/05/2024 09/10/2024 Active Start: 03-12-2024 End: 06-26-2024 predniSONE (Deltasone) 10 [...] December, Active pregabalin 50 mg oral capsule (16 sources) Start: 04-27-2024 End: 06-26-2024 take 1 capsule by mouth in the morning pregabalin (Lyrica) 50 MG capsule Indications: Other intervertebral disc degeneration, lumbar region Take 1 capsule (50 mg) by mouth in the morning and 1 capsule (50 mg) before bedtime. 60 capsule 5 04/27/2024 06/26/2024 Discontinued (Therapy completed) Start: 10-31-2023 take 1 capsule by mo uth in the morning pregabalin (Lyrica) 50 MG capsule Indications: Other intervertebral disc degeneration, lumbar region Take 1 capsule (50 mg) by mouth in the morning and 1 capsule (50 mg) before bedtime. 60 capsule 5 10/31/2023 Active Start: 08-02-2023 take 1 capsule by mo uth in the morning pregabalin (Lyrica) 50 MG [...] (Therapy completed) tadalafil 5 mg oral tablet (20 sources) Phosphodiesterase 5 Inhibitor Start: 08-22-2024 take 1 tablet by mouth once daily tadalafil (Cialis) 5 MG tablet Take 5 mg by mouth Daily 08/22/2024 Active Start: 06-26-2024 take 1 tablet by ashok th once daily Cialis 5 mg oral tablet 5 mg = 1 tab(s), Oral, Daily, # 30 tab(s), Refills(s) 11, Pharmacy: [id number], 178, cm, 06/26/24 12:16:00 EST, Height/Length [...] period, # 30 tab(s), Refills(s) 3, Pharmacy: [id number], 178, cm, 02/21/24 9:33:00 EDT, Height/Length Dosing, 136.4, kg, 02/21/24 9:33:00 EDT, Weight Dosing Start Date: 02/21/24 Status: Ordered tamsulosin hydrochloride 0.4 mg oral capsule (13 sources) alpha-Adrenergic Jameel Start: 08-03-2023 take 1 capsule by mouth every twenty-four hours in the morning tamsulosin (Flomax) 0.4 MG 24 hr capsule Take 1 capsule by mouth in the morning. 0 08/03/2023 Active Start: 03-28-2023 End: 06-26-2024 take 1 capsule by mouth once daily tamsulosin (Flomax) 0.4 MG 24 hr capsule Take 0.4 mg by mouth Daily 02/25/2024 Active 60 actuat testosterone 20.25 mg/actuat topical gel (15 sources) Androgen Start: 05-27-2024 Testosterone 1 .62 % gel apply 2 (TWO) pumps topically EVERY MORNING 05/27/2024 Active Start: 04-19-2024 AndroGel Pump 20.25 mg/1.25 g (1.62%) transdermal gel = 2 pump, Topical, qAM, # 75 gram, Refills(s) 5, Pharmacy: [id number], 178, cm, 02/21/24 9:33:00 EDT, Height/Length [...] Anti-inflammatory Drug Ibuprofen 800 MG Orally Not-Taking levoFLOXacin 750 mg oral tablet (4 sources) Quinolone Antimicrobial Start: 09-13-2024 End: 09-25-2024 take 1 tablet by mouth once daily levoFLOXacin (Levaquin) 750 MG tablet Indications: COPD with exacerbation (CMS/HCC) Take 1 tablet (750 mg) by mouth Daily for 7 days 7 tablet 09/13/2024 09/25/2024 Discontinued (Therapy completed) methylPREDNISolone (1 source) Corticosteroid Start: 06-03-2014 Depo-Medrol [...] Classification Problem Date Documented Da te Episodic/Chronic Anxiety disorders (20 sources) Generalized anxiety disorder; Translations: [Generalized anxiety disorder] Onset: 08-18-2023 08-18-2023 Chronic Aortic; peripheral; and visceral artery aneurysms (20 sources) Aortic aneurysm; Translations: [Aortic aneurysm of unspecified site, without rupture] Onset: 09-28-2023 09-28-2023 Chronic Chronic obstructive pulmonary disease and bronchiectasis (20 sources) Acute exacerbation of chronic obstructive airways disease; Translations: [Chronic obstructive pulmonary disease with (acute) exacerbation] Onset: 09-13-2024 09-13-2024 Chronic Disorders of lipid metabolism (20 sources) Hypercholesterolemi a; Translations: [Pure hypercholesterolemi a, unspecified] Onset: 09-28-2023 Resolved: 06-26-2024 09-28-2023 Chronic Diverticulosis and diverticulitis (20 sources) Diverticulitis; Translations: [Diverticulitis of intestine, part unspecified, without perforation or abscess without bleeding] Onset: 09-29-2023 09-29-2023 Chronic Essential hypertension (20 sources) Essential (primary) hypertension; Translations: [Hypertensive disorder] Onset: 06-29-2022 Chronic Genitourinary symptoms and ill-defined conditions (8 sources) Urgent desire to urinate; Translations: [Urgency of urination] Onset: 12-05-2023 Episodic Hyperplasia of prostate (20 sources) Benign prostatic hypertrophy with outflow obstruction; [...] Onset: 07-15-2014 07-15-2014 Chronic Other circulatory disease (20 sources) Disorder of aorta; Translations: [Stricture of artery] Onset: 09-28-2023 09-28-2023 Chronic Other diseases of kidney and ureters (5 sources) Acquired renal cyst without neoplastic change; Translations: [Cyst of kidney, acquired] Onset: 03-07-2023 Episodic Other diseases of kidney and ureters (6 sources) Complex renal cyst 03-07-2023 Episodic Other endocrine disorders (3 sources) Testicular hypofunction; Translations: [Testicular hypofunction] Onset: 03-28-2023 Chronic Other endocrine disorders (3 sources) Male hypogonadism 03-28-2023 Chronic Other lower respiratory disease (1 source) Dyspnea; Translations: [Dyspnea and respiratory abnormalities] Episodic Other lower respiratory disease (8 sources) Wheezing; Translations: [Wheezing] Onset: 09-13-2024 09-13-2024 Episodic Other male genital disorders (17 sources) Male erectile dysfunction, unspecified; Translations: [Erectile dysfunction] Onset: 03-07-2023 Chronic Other male genital disorders (20 sources) Secondary erectile dysfunction; Translations: [Male erectile [...] Chronic Other nutritional; endocrine; and metabolic disorders (20 sources) Body mass index 40+ - severely obese; Translations: [Morbid (severe) obesity due to excess calories] Onset: 09-28-2023 09-28-2023 Chronic Other nutritional; endocrine; and metabolic disorders (17 sources) Obesity caused by energy imbalance; Translations: [Morbid (severe) obesity due to excess calories] Onset: 09-28-2023 09-29-2023 Chronic Other upper respiratory disease (20 sources) Allergic rhinitis; Translations: [Other allergic rhinitis] Onset: 09-28-2023 09-28-2023 Chronic Other upper respiratory infections (10 sources) Upper respiratory infection; Translations: [Acute upper respiratory infection, unspecified] Onset: 09-05-2024 09-05-2024 Episodic Residual codes; unclassified (20 sources) Obstructive sleep apnea syndrome; Translations: [Obstructive sleep apnea (adult) (pediatric)] Onset: 09-28-2023 09-28-2023 Chronic Residual codes; unclassified (6 sources) Chronic back pain 03-07-2023 Episodic Residual codes; unclassified (6 sources) Sleep disorder 03-07-2023 Episodic Spondylosis; intervertebral disc disorders; other back problems (20 sources) Lumbosacral spondylosis without myelopathy; Translations: [Spondylosis without myelopathy or radiculopathy, lumbosacral region] Onset: 05-01-2018 09-28-2023 Chronic Sprains and strains (1 source) Strain of muscle, fascia and tendon of lower back, initial encounter Episodic Unclassified (2 sources) Patient encounter status 02-21-2024 Viral infection (5 sources) Disease caused by 2019-nCoV; Translations: [COVID-19] Onset: 09-25-2024 09-25-2024 Episodic Past or Other Problems Problem Classification Problem Date Documented Da te Episodic/Chronic Abdominal hernia (20 sources) Hernia of anterior abdominal wall; Translations: [Ventral hernia without obstruction or gangrene] Onset: 09-28-2023 09-28-2023 Episodic Asthma (20 sources) Exacerbation of mild persistent asthma; Translations: [Mild persistent asthma with (acute) exacerbation] Onset: 09-28-2023 Resolved: 09-13-2024 09-28-2023 Chronic Diabetes mellitus without complication (20 sources) Prediabetes; Translations: [Prediabetes] Onset: 09-29-2023 09-29-2023 Episodic Immunizations and screening for infectious disease (15 sources) Needs influenza immunization; Translations: [Encounter for immunization] Onset: 06-26-2024 06-26-2024 Episodic Joint disorders and dislocations; trauma-related (2 sources) Tear of medial meniscus of knee; Translations: [Other tear of medial meniscus, current injury, unspecified knee, initial encounter] Onset: 07-15-2014 07-15-2014 Episodic Other aftercare (1 source) Other halfway (current) drug therapy; Translations: [OTH LONG-TERM CURRENT DRUG THERAPY] Onset: 09-08-2022 Episodic Other [...] Onset: 03-03-2022 Episodic Other connective tissue disease (20 sources) Full thickness rotator cuff tear; Translations: [Complete rotator cuff tear or rupture of unspecified shoulder, not specified as traumatic] Onset: 09-28-2023 09-28-2023 Episodic Other connective tissue disease (19 sources) Pain of bilateral hands; Translations: [Pain in right hand] Onset: 02-21-2024 02-21-2024 Episodic Other diseases of kidney and ureters (20 sources) Cyst of kidney; Translations: [Cyst of kidney, acquired] Onset: 09-28-2023 09-28-2023 Episodic Other injuries and conditions due to external causes (2 sources) Common peroneal neuropathy; Translations: [Injury of peroneal nerve at lower leg level, unspecified leg, initial encounter] Onset: 06-10-2014 06-10-2014 Episodic Other lower respiratory disease (20 sources) Nodule of lung; Translations: [Solitary pulmonary nodule] Onset: 09-29-2023 09-29-2023 Episodic Other non-traumatic joint disorders (4 sources) Pain in right shoulder; Translations: [PAIN IN RIGHT SHOULDER] Onset: 07-28-2022 Episodic Other non-traumatic joint disorders (4 sources) Pain in left ankle and joints of left foot; Translations: [PAIN IN LEFT ANKLE] Onset: 07-05-2022 Episodic Other screening for suspected conditions (not mental disorders or infectious disease) (20 sources) Encounter for screening for malignant neoplasm of prostate; Translations: [Patient encounter status] Onset: 07-04-2022 09-29-2023 Episodic Residual codes; unclassified (20 sources) Insomnia; Translations: [Insomnia, unspecified] Onset: 09-29-2023 09-29-2023 Episodic Spondylosis; intervertebral disc disorders; other back problems (20 sources) Neurogenic claudication; Translations: [Spinal stenosis, lumbar region with neurogenic claudication] Onset: 06-12-2014 06-12-2014 Episodic Results Test Name Value Interpretation Reference Range Facility Reminderson 09-04-2024 Reminders Reminders From: Harriet Adames To: EU - Administrative; Sent: 06/26/2024 13:05:04 EST Show up: 07/22/2024 13:04:00 EST Subject: Ambulatory Reminder Due Date/Time: 09/25/2024 13:04:00 EST Reminder/Recall Patient needs scheduled with AO for a 3 month F/U with testosterone levels, due back in September 2024 LVM Pt called to schedule. Scheduled 3 mos f/up with [facility]-Level in [place] office on 10/08/2024 with AO. Normal [facility] ALL CBC WITH AUTO DIFFon BASOPHILS ABSOLUTE AUTO 0.1 [facility] Basophils/100 WBC (Bld) 0.7 % 0.2 - 2.0 % [facility] Eosinophils/100 WBC (Bld) 2.2 % 0.9 - 7.0 % [facility] Erythrocyte distribution width (RBC) [Ratio] 11.5 % 11.0 - 15.0 % [facility] Hematocrit (Bld) [Volume fraction] 41.7 % Low 42.0 - 54.0 % [facility] Hemoglobin (Bld) [Mass/Vol] 13.8 g/dL Low 14.0 - 18.0 g/dL [facility] IMMATURE GRANULOCYTES ABS AUTO 0.02 [facility] Immature granulocytes/100 WBC (Bld) 0.3 % 0.0 - 0.5 % [facility] Interpretation and review of laboratory results Abnormal [facility] LYMPHOCYTES ABSOLUTE AUTO 1.7 [facility] Lymphocytes/100 WBC (Bld) 25.4 % 20.5 - 60.0 % [facility] MCH (RBC) [Entitic mass] 32.5 pg 25.9 - 34.0 pg [facility] MCHC (RBC) [Mass/Vol] 33.1 g/dL 29.9 - 35.2 g/dL [facility] MCV (RBC) [Entitic vol] 98.3 fL High 80.0 - 94.0 fL [facility] MONOCYTES ABSOLUTE AUTO 0.5 [facility] Monocytes/100 WBC (Bld) 8.1 % 1.7 - 12.0 % [facility] NEUTROPHILS ABSOLUTE AUTO 4.2 [facility] Neutrophils/100 WBC (Bld) 63.3 % 43.0 - 75.0 % [facility] Platelet mean volume (Bld) [Entitic vol] 9 fL Low 9.5 - 13.5 fL [facility] TBH EO # 0.2 [facility] PLT 287 [facility] RBC 4.24 Low [facility] WBC 6.7 [facility] ALL HGB HCTon 06-20-2024 Hematocrit (Bld) [Volume fraction] 42.8 % 42.0 - 54.0 % [facility] Hemoglobin (Bld) [Mass/Vol] 14.5 g/dL 14.0 - 18.0 g/dL [facility] ALL TESTOSTERONEon Testosterone [Mass/Vol] 266 ng/dL 264 - 916 ng/dL [facility] Comment on above: Adult male reference interval is based on a population of healthy nonobese males (BMI <30) between 19 and 39 years old. Cody et.al. JCEM 2017,102;[id number]. PMID: [id number]. Performed at: - [facility] [id number] Block Handler: Rodrick Guillen PhD, Phone: [phone] [place] [facility] [place] [facility] Office/Clinic Noteon 02-21-2024 Urology Office/Clinic Note [...] with voice recognition artificial intelligence software, specifically [employer], [employer] and or [employer]. Substitutions may have occurred due to the [...] Will order Local anesthesia. -Schedule cystoscopy Ordered: 59529 Measure Post Void residual urine and/or bladder [...] Urnls Dip Stick Auto w/o Microscopy POC 90936 2. Urgency of urination (R39.15: Urgency of [...] lit (more content not included)... Normal [facility] Comment on above: Result Comment: Elec tronically Signed By: RENETTA Watts APRN, Wendi Acuna\.br\Date and Time Signed: 02/21/24 12:26 EDT Retail - Clinical Noteon Retail - Clinical Note [id number] 0TIFF [facility] Ambulatory Visit Summaryon 0 12-05-2023 Ambulatory [...] Tab) fluticasone nasal (fluticasone Nasal 0.05 mg/inh [place]) hydrochlorothiazide-li sinopril (hydrochlorothiazide-l isinopril 12.5 mg-10 mg [...] HARKINS, Javier Jones [facility] 12-05-2023 Lab Reports [id number] 0TIFF Normal [facility] Patient Educationon 12-05-19 24 Patient Education Urology [...] these instructions at home: Medicines ? Take xnhf-pgm-dkmpcus and prescription medicines only as told by [...] cig (more content not included)... Normal [facility] Urology Office/Clinic Noteon 12-05-2023 Urology Office/Clinic [...] When Contact Information NEVAEH HARKINS, Javier Jones, URRadha [facility] [address], [place] [address]- [phone] Additional Instructions: f/u for ICI teaching Patient [...] T (more content not included)... Normal [facility] Comment on above: Result Comment: Elec tronically Signed By: Javier DOWNS MD\.br\Date and Time Signed: 12/05/23 15:07 EDT\.br\Electronically Co-Signed By: Shira Limon\.br\Date and Time Co-Signed: 12/05/23 15:04 EDT Bladimir 04-21-2023 [facility] MARCEL WAHL ([id number]) 1965 M Date Time Provider Department [facility] During your visit today, we recorded [...] via Dr. Shaikh Liang's office. Roselia nurse [phone] Diagnosis: aneurysm All records are in Epic Oksana Spear RN 05/06/2023 1:57 PM Addendum I have called and discussed with Marcel Brown recommendations which are there is no indication for surgery. 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 Also, blood pressure control is essential to keep aorta size stable. 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1 103/ul Normal 0.0-0.1 [facility] Comment on above: Performed By: #### C BC ####[facility] [address] [place] [id number]. Gema Beck Basophils/100 WBC (Bld) 0.8 % Normal 0.2-2.0 [facility] Comment on above: Performed By: #### C BC ####[facility] [address] [place] [id number]. Gema Kiran EO # 0.2 103/ul Normal 0.0-0.7 [facility] Comment on above: Performed By: #### C BC ####[facility] [address] [place] [address]Dr. Gema Kiran Eosinophils/100 WBC (Bld) 1.6 % Normal 0.9-7.0 [facility] Comment on above: Performed By: #### C BC ####[facility] [address]feuoz[address] [place] [phone]. Gema Beck Erythrocyte distribution width (RBC) [Ratio] 11.8 % Normal 11.0-15.0 [facility] Comment on above: Performed By: #### C BC ####[facility] [address] [place] [phone]. Gema Beck Hematocrit (Bld) [Volume fraction] 43.3 % Normal 42.0-54.0 [facility] Comment on above: Performed By: #### C BC ####[facility] [address] [place] [phone]. Gema Beck Hemoglobin (Bld) [Mass/Vol] 14.2 g/dL Normal 14.0-18.0 [facility] Comment on above: Performed By: #### C BC ####[facility] [address] [place] [phone]. Gema Beck IG # 0.07 10e3/ul Critically high 0.00-0.03 [facility] Comment on above: Performed By: #### C BC ####[facility] [address] [place] [phone]. Gema Beck IG % 0.7 % Critically high 0.0-0.5 The [facility] Comment on above: Performed By: #### C BC ####[facility] [address] [place] [phone]. Gema Beck LYMPH # 2.6 103/ul Normal 1.2-3.8 [facility] Comment on above: Performed By: #### C BC ####[facility] [address] [place] [phone]. Gema Beck Lymphocytes/100 WBC (Bld) 27.0 % Normal 20.5-60.0 [facility] Comment on above: Performed By: #### C BC ####[facility] [address]ib[address] [place] [phone]. Gema Beck MANUAL DIFF REQ NO Normal [facility] Comment on above: Performed By: #### C BC ####[facility] [address] [place] [phone]. Gema Beck MCH (RBC) [Entitic mass] 32.1 pg Normal 25.9-34.0 [facility] Comment on above: Performed By: #### C BC ####[facility] [address] [place] [phone]. Gema Beck MCHC (RBC) [Mass/Vol] 32.8 g/dL Normal 29.9-35.2 [facility] Comment on above: Performed By: #### C BC ####[facility] [address]fr[address] [place] [phone]. Gema Beck MCV (RBC) [Entitic vol] 98.0 fL Critically high 80.0-94.0 [facility] Comment on above: Performed By: #### C BC ####[facility] [address] [place] [phone]. Gema Beck MONO # 0.7 103/ul Normal 0.3-0.8 [facility] Comment on above: Performed By: #### C BC ####[facility] [address] [place] [phone]. Gema Beck Monocytes/100 WBC (Bld) 7.8 % Normal 1.7-12.0 [facility] Comment on above: Performed By: #### C BC ####[facility] [address]vxcap[address] [place] [phone]. Gema Beck NEUT # 5.9 103/ul Normal 1.4-6.5 [facility] Comment on above: Performed By: #### C BC ####[facility] [address] [place] [phone]. Gema Beck Neutrophils/100 WBC (Bld) 62.1 % Normal 43.0-75.0 [facility] Comment on above: Performed By: #### C BC ####[facility] X[address]ht[address]ysc[address] [place] [phone]. Gema Beck Platelet mean volume (Bld) [Entitic vol] 9.1 fL Critically low 9.5-13.5 [facility] Comment on above: Performed By: #### C BC ####[facility] [address] [place] [phone]. Gema Beck PLT 342 103/ul Normal 150-450 [facility] Comment on above: Performed By: #### C BC ####[facility] V[address]cnms[address] [place] [phone]. Gema Bcek RBC 4.42 106/ul Critically low 4.70-6.10 [facility] Comment on above: Performed By: #### C BC ####[facility] [address] [place] [phone]. Gema Beck WBC 9.5 103/ul Normal 4.0-11.0 [facility] Comment on above: Performed By: #### C BC ####[facility] [address] [place] [address]Dr. Enedeliaamairani Beck PROF 14(COMP METB)on 023 Albumin [Mass/Vol] 3.6 g/dL Normal 3.4-5.0 [facility] Comment on above: Performed By: #### C MP #### [facility] Laboratory [address] [place] [address] Dr. Gema Beck Albumin/Globulin [Mass ratio] 1.1 {ratio} Normal [facility] Comment on above: Performed By: #### C MP #### [facility] [address] [place] [address] Dr. Gema Beck ALP [Catalytic activity/Vol] 66 U/L Normal 46-116 [facility] Comment on above: Performed By: #### C MP #### [facility] [address] [place] [address] Dr. Gema Beck ALT [Catalytic activity/Vol] 22 U/L Normal 16-63 [facility] Comment on above: Performed By: #### C MP #### [facility] [address] [place] [address] Dr. Gema Beck Anion gap [Moles/Vol] 13.2 mmol/L Normal [facility] Comment on above: Performed By: #### C MP #### [facility] [address] [place] [address] Dr. Gema Beck AST [Catalytic activity/Vol] 15 U/L Normal 15-37 [facility] Comment on above: Performed By: #### C MP #### [facility] [address] [place] [address] Dr. Gema Beck Bilirubin [Mass/Vol] 0.3 mg/dL Normal 0.2-1.0 [facility] Comment on above: Performed By: #### C MP #### [facility] [address] [place] [address] Dr. Gema Beck Calcium [Mass/Vol] 8.7 mg/dL Normal 8.5-10.1 [facility] Comment on above: Performed By: #### C MP #### [facility] [address] [place] [address] Dr. Gema Beck Chloride [Moles/Vol] 105 mmol/L Normal 98-107 [facility] Comment on above: Performed By: #### C MP #### [facility] [address] [place] [address] Dr. Gema Beck CO2 [Moles/Vol] 27.6 mmol/L Normal 21.0-32.0 [facility] Comment on above: Performed By: #### C MP #### [facility] [address] [place] [address] [address] Gema Beck Creatinine [Mass/Vol] 0.83 mg/dL Normal 0.70-1.30 [facility] Comment on above: Performed By: #### C MP #### [facility] [address] [place] [address] [address] Gema Beck EGFR-AF BRUNEIAN >60 Normal >=60 [facility] Comment on above: Performed By: #### C MP #### [facility] [address] [place] [address] Dr. Gema Beck EGFR-NON AF BRUNEIAN >60 Normal >=60 [facility] Comment on above: Performed By: #### C MP #### [facility] [address] [place] [address] Dr. Gema Beck Globulin (S) [Mass/Vol] 3.4 g/dL Normal [facility] Comment on above: Performed By: #### C MP #### [facility] [address] [place] [address] Dr. Gema Beck Glucose [Mass/Vol] 97 mg/dL Normal 74-106 [facility] Comment on above: Performed By: #### C MP #### [facility] [address] [place] [address] Dr. Gema Beck Potassium [Moles/Vol] 3.8 mmol/L Normal 3.5-5.1 [facility] Comment on above: Performed By: #### C MP #### [facility] [address] [place] [address] Dr. Gema Beck Protein [Mass/Vol] 7.0 g/dL Normal 6.4-8.2 [facility] Comment on above: Performed By: #### C MP #### [facility] [address] [place] [address] Dr. Gmea Beck Sodium [Moles/Vol] 142 mmol/L Normal 136-145 [facility] Comment on above: Performed By: #### C MP #### [facility] [address] [place], [place] [address] Dr. Gema Beck Urea nitrogen [Mass/Vol] 17.0 mg/dL Normal 7.0-18.0 [facility] Comment on above: Performed By: #### C MP #### [facility] [address] [place] [address] [address] Gema Beck Urea nitrogen/Creatinine [Mass ratio] 20.5 mg/mg Normal [facility] Comment on above: Performed By: #### C MP #### [facility] Laboratory [address] [place] [address] [address] Gema Beck CBC AUTO DIFFon 06-29-2022 BASO # 0.1 103/ul Normal 0.0-0.1 [facility] Comment on above: Performed By: #### C BC ####[facility] [address] [place] [address]DrSohail Beck Basophils/100 WBC (Bld) 1.4 % Normal 0.2-2.0 [facility] Comment on above: Performed By: #### C BC ####[facility] [address] [place] [address]DrSohail Beck EO # 0.1 103/ul Normal 0.0-0.7 [facility] Comment on above: Performed By: #### C BC ####[facility] [address] [place] [address]Dr. Gema Beck Eosinophils/100 WBC (Bld) 2.1 % Normal 0.9-7.0 [facility] Comment on above: Performed By: #### C BC ####[facility] [address]gs[address] [place] [phone] Beck Erythrocyte distribution width (RBC) [Ratio] 12.3 % Normal 11.0-15.0 [facility] Comment on above: Performed By: #### C BC ####[facility] [address] [place] [phone] Beck Hematocrit (Bld) [Volume fraction] 42.2 % Normal 42.0-54.0 [facility] Comment on above: Performed By: #### C BC ####[facility] [address] [place] [address]DrSohail Gema Beck Hemoglobin (Bld) [Mass/Vol] 13.9 g/dL Critically low 14.0-18.0 [facility] Comment on above: Performed By: #### C BC ####[facility] [address] [place] [address]DrSohail Gema Beck IG # 0.07 10e3/ul Critically high 0.00-0.03 [facility] Comment on above: Performed By: #### C BC ####[facility] [address] [place] [address]DrSohail Gema Kiran IG % 1.1 % Critically high 0.0-0.5 [facility] Comment on above: Performed By: #### C BC ####[facility] [address] [place], [place] [address]DrSohail Beck LYMPH # 1.9 103/ul Normal 1.2-3.8 [facility] Comment on above: Performed By: #### C BC ####[facility] [address]td[address] [place] [address]DrSohail Enedeliaamairani Beck Lymphocytes/100 WBC (Bld) 28.6 % Normal 20.5-60.0 [facility] Comment on above: Performed By: #### C BC ####[facility] [address] [place] [address]DrSohail Enedeliaamairani Beck MANUAL DIFF REQ NO Normal [facility] Comment on above: Performed By: #### C BC ####[facility] [address] [place] [phone] Mcdanielsamairani Kiran MCH (RBC) [Entitic mass] 32.0 pg Normal 25.9-34.0 [facility] Comment on above: Performed By: #### C BC ####[facility] [address] [place] [phone] Enedeliaamairani Beck MCHC (RBC) [Mass/Vol] 32.9 g/dL Normal 29.9-35.2 [facility] Comment on above: Performed By: #### C BC ####[facility] [address] [place] [address]DrSohail Mcdanielsamairani Kiran MCV (RBC) [Entitic vol] 97.0 fL Critically high 80.0-94.0 [facility] Comment on above: Performed By: #### C BC ####[facility] [address] [place] [address]DrSohail Beck MONO # 0.5 103/ul Normal 0.3-0.8 [facility] Comment on above: Performed By: #### C BC ####[facility] [address] [place] [address]DrSohail Beck Monocytes/100 WBC (Bld) 8.0 % Normal 1.7-12.0 [facility] Comment on above: Performed By: #### C BC ####[facility] [address] [place], [place] [address]DrSohail Beck NEUT # 3.9 103/ul Normal 1.4-6.5 [facility] Comment on above: Performed By: #### C BC ####[facility] [address]ho[address] [place] [address]DrSohail Beck Neutrophils/100 WBC (Bld) 58.8 % Normal 43.0-75.0 [facility] Comment on above: Performed By: #### C BC ####[facility] Em[address]lozpw[address] [place] [address]DrSohail Beck Platelet mean volume (Bld) [Entitic vol] 9.6 fL Normal 9.5-13.5 [facility] Comment on above: Performed By: #### C BC ####[facility] [address] [place] [address]DrSohail Beck PLT 334 103/ul Normal 150-450 [facility] Comment on above: Performed By: #### C BC ####[facility] R[address]vbuk[address] [place] [phone] Beck RBC 4.35 106/ul Critically low 4.70-6.10 [facility] Comment on above: Performed By: #### C BC ####[facility] [address] [place], [place] [address]CcSohail Beck WBC 6.7 103/ul Normal 4.0-11.0 [facility] Comment on above: Performed By: #### C BC ####[facility] [address] [place] [phone] Beck GLYCOHEMOGLOBIN A1Con 2021 ADA RECOMMENDATION SEE BELOW Normal [facility] Comment on above: Result Comment: ADA RECOMMENDED LIMIT 4.0 - 6.0 ADA THERAPEUTIC TARGET < 7.0 ACTION SUGGESTED > 7.0 Performed By: #### A 1C ####[facility] [address] [place] [phone] Beck Glucose [Mass/Vol] 120 mg/dL Normal [facility] Comment on above: Performed By: #### A 1C ####[facility] [address] [place] [phone] Beck HbA1c (Bld) [Mass fraction] 5.8 % Normal 4.5-6.2 [facility] Comment on above: Performed By: #### A 1C ####[facility] [address] [place] [phone] Beck LIPID PROFILEon 06-29-2022 CHOL-HDL RATIO NORM SEE BELOW Normal [facility] Comment on above: Result Comment: 3.3 - 4.4 LOW RISK 4.4 - 7.1 AVERAGE RISK 7.1 - 11.0 MODERATE RISK >11.0 HIGH RISK Performed By: #### L IPID, TSH, CMP #### [facility] Laboratory [address] [place] [address] [address] Gema Beck Cholesterol [Mass/Vol] 183 mg/dL Normal <=200 [facility] Comment on above: Performed By: #### L IPID, TSH, CMP #### [facility] [address] [place] [address] [address] Gema Beck Cholesterol in HDL [Mass/Vol] 44 mg/dL Normal 40-60 [facility] Comment on above: Performed By: #### L IPID, TSH, CMP #### [facility] [address] [place] [address] [address] Gema Beck Cholesterol in LDL [Mass/Vol] 125.2 mg/dL Normal [facility] Comment on above: Performed By: #### L IPID, TSH, CMP #### [facility] [address] [place] [address] [address] Gema Beck Cholesterol.total/Ch olesterol in HDL [Mass ratio] 4.2 {ratio} Normal [facility] Comment on above: Performed By: #### L IPID, TSH, CMP #### [facility] [address] [place] [address] [address] Gema Beck HDL NORMAL > or = 60 mg/dl - LO W CARDIOVASCULAR RISK <40 mg/dl - HIGH CARDIOVASCULAR RISK Normal [facility] Comment on above: Performed By: #### L IPID, TSH, CMP #### [facility] [address] [place] [address] [address] Gema Beck LDL CALC NORMAL SEE BELOW Normal [facility] Comment on above: Result Comment: <100 mg/dl OPTIMAL 100 - 129 mg/dl NEAR OR ABOVE OPTIMAL 130 - 159 mg/dl BORDERLINE HIGH 160 - 189 mg/dl HIGH >190 mg/dl VERY HIGH Performed By: #### L IPID, TSH, CMP #### [facility] [address] [place] [address] [address] Gema Beck Triglyceride [Mass/Vol] 69 mg/dL Normal <=150 [facility] Comment on above: Performed By: #### L IPID, TSH, CMP #### [facility] [address] [place] [address] [address] Gema Beck VLDL CALC 13.8 mg/dL Normal [facility] Comment on above: Performed By: #### L IPID, TSH, CMP #### [facility] [address] [place] [address] [address] Gema Beck PROF 14(COMP METB)on 022 Albumin [Mass/Vol] 3.6 g/dL Normal 3.4-5.0 [facility] Comment on above: Performed By: #### L IPID, TSH, CMP #### [facility] [address] [place] [address] [address] Gema Beck Albumin/Globulin [Mass ratio] 1.1 {ratio} Normal [facility] Comment on above: Performed By: #### L IPID, TSH, CMP #### [facility] [address] [place] [address] [address] Gema Beck ALP [Catalytic activity/Vol] 73 U/L Normal 46-116 [facility] Comment on above: Performed By: #### L IPID, TSH, CMP #### [facility] [address] [place] [address] [address] Gema Beck ALT [Catalytic activity/Vol] 29 U/L Normal 16-63 [facility] Comment on above: Performed By: #### L IPID, TSH, CMP #### [facility] [address] [place] [address] Dr. Gema Beck Anion gap [Moles/Vol] 7.3 mmol/L Normal [facility] Comment on above: Performed By: #### L IPID, TSH, CMP #### [facility] [address] [place] [address] Dr. Gema Beck AST [Catalytic activity/Vol] 18 U/L Normal 15-37 [facility] Comment on above: Performed By: #### L IPID, TSH, CMP #### [facility] [address] [place] [address] [address] Gema Beck Bilirubin [Mass/Vol] 0.4 mg/dL Normal 0.2-1.0 [facility] Comment on above: Performed By: #### L IPID, TSH, CMP #### [facility] [address] [place] [address] Dr. Gema Beck Calcium [Mass/Vol] 8.6 mg/dL Normal 8.5-10.1 [facility] Comment on above: Performed By: #### L IPID, TSH, CMP #### [facility] [address] [place] [address] Dr. Gema Beck Chloride [Moles/Vol] 104 mmol/L Normal 98-107 [facility] Comment on above: Performed By: #### L IPID, TSH, CMP #### [facility] [address] [place] [address] Dr. Gema Beck CO2 [Moles/Vol] 29.1 mmol/L Normal 21.0-32.0 [facility] Comment on above: Performed By: #### L IPID, TSH, CMP #### [facility] [address] [place] [address] [address] Gema Beck Creatinine [Mass/Vol] 0.88 mg/dL Normal 0.70-1.30 [facility] Comment on above: Performed By: #### L IPID, TSH, CMP #### [facility] [address] [place] [address] Dr. Gema Beck EGFR-AF BRUNEIAN >60 Normal >=60 [facility] Comment on above: Performed By: #### L IPID, TSH, CMP #### [facility] [address] [place] [address] Dr. Gema Beck EGFR-NON AF BRUNEIAN >60 Normal >=60 [facility] Comment on above: Performed By: #### L IPID, TSH, CMP #### [facility] [address] [place] [address] Dr. Gema Beck Globulin (S) [Mass/Vol] 3.4 g/dL Normal [facility] Comment on above: Performed By: #### L IPID, TSH, CMP #### [facility] [address] [place] [address] [address] Gema Beck Glucose [Mass/Vol] 99 mg/dL Normal 74-106 [facility] Comment on above: Performed By: #### L IPID, TSH, CMP #### [facility] [address] [place] [address] Dr. Gema Beck Potassium [Moles/Vol] 4.4 mmol/L Normal 3.5-5.1 [facility] Comment on above: Performed By: #### L IPID, TSH, CMP #### [facility] [address] [place], [place] [id number] Dr. Gema Beck Protein [Mass/Vol] 7.0 g/dL Normal 6.4-8.2 [facility] Comment on above: Performed By: #### L IPID, TSH, CMP #### [facility] [address] [address] [address] Gema Beck Sodium [Moles/Vol] 136 mmol/L Normal 136-145 [facility] Comment on above: Performed By: #### L IPID, TSH, CMP #### [facility] [address] [address] [address] Gema Beck Urea nitrogen [Mass/Vol] 17.0 mg/dL Normal 7.0-18.0 The [facility] Comment on above: Performed By: #### L IPID, TSH, CMP #### [facility] [address] [place] [address] Dr. Gema Beck Urea nitrogen/Creatinine [Mass ratio] 19.3 mg/mg Normal The [facility] Comment on above: Performed By: #### L IPID, TSH, CMP #### [facility] [address] [place] [address] Dr. Gema Beck TSHon 06-29-2022 TSH 1.148 uIU/mL Normal 0.358-3.740 The [facility] Comment on above: Performed By: #### L IPID, TSH, CMP ####[facility] [address] [address]Dr. Gema Beck UA RANDOM W/MICROSCOPICon BACTERIA NONE SEEN Normal NONE SEEN The [facility] Comment on above: Performed By: #### U AMIC #### [facility] [address] [place] [address] Dr. Gema Beck Bilirubin Ql (U) SMALL Abnormal NEGATIVE The [facility] Comment on above: Performed By: #### U AMIC #### [facility] [address] [place] [address] Dr. Gema Beck CAST NONE SEEN Normal NONE SEEN [facility] Comment on above: Performed By: #### U AMIC #### [facility] [address] [address] [address] Gema Beck Clarity (U) CLEAR Normal CLEAR The [facility] Comment on above: Performed By: #### U AMIC #### [facility] [address] [address] [address] Gema Beck Color (U) LT. YELLOW Normal YELLOW The [facility] Comment on above: Performed By: #### U AMIC #### [facility] [address] [address] [address] Gema Beck Crystals LM Nom (Urine sed) NONE SEEN Normal NONE SEEN [facility] Comment on above: Performed By: #### U AMIC #### [facility] [address] [place] [address] Dr. Gema Beck Epithelial cells LM Ql (Urine sed) RARE Normal NONE SEEN /RARE [facility] Comment on above: Performed By: #### U AMIC #### [facility] [address] [place] [address] Dr. Gema Beck Glucose Ql (U) Negative Normal NEGATIVE The [facility] Comment on above: Performed By: #### U AMIC #### [facility] [address] [place] [address] Dr. Gema Beck Hemoglobin Ql (U) Negative Normal NEGATIVE [facility] Comment on above: Performed By: #### U AMIC #### [facility] [address] [place] [address] Dr. Gema Beck Ketones Ql (U) Negative Normal NEGATIVE The [facility] Comment on above: Performed By: #### U AMIC #### [facility] [address] [place] [address] Dr. Gema Beck LEUKOCYTES Negative Normal NEGATIVE The [facility] Comment on above: Performed By: #### U AMIC #### [facility] [address] [place] [address] Dr. Gema Beck MUCOUS NONE SEEN Normal NONE SEEN [facility] Comment on above: Performed By: #### U AMIC #### [facility] [address] [place] [address] Dr. Gema Beck Nitrite Ql (U) Negative Normal NEGATIVE The [facility] Comment on above: Performed By: #### U AMIC #### [facility] [address] [address] [address] Gema Beck pH (U) 5.5 [pH] Normal 5-9 The [facility] Comment on above: Performed By: #### U AMIC #### [facility] [address] [address] [address] Gema Beck RBC NONE SEEN Abnormal 0-2 The [facility] Comment on above: Performed By: #### U AMIC #### [facility] [address] [address] [address] Gema Beck SPEC GRAVITY 1.010 Normal 1.005-<=1.025 The [facility] Comment on above: Performed By: #### U AMIC #### [facility] [address] [place] [address] Dr. Gema Beck UA PROTEIN Negative Normal NEGATIVE/ TRACE The [facility] Comment on above: Performed By: #### U AMIC #### [facility] [address] [place] [address] Dr. Gema Beck Urobilinogen Qn (U) 0.2 {Merari'U}/dL Normal 0.2 - 1. 0 [facility] Comment on above: Performed By: #### U AMIC #### [facility] [address] [place] [address] Dr. Gema Beck WBC NONE SEEN Normal NONE SEEN The [facility] Comment on above: Performed By: #### U AMIC #### [facility] [address] [place] [address] Dr. Gema Beck ALDOLASEon 03-04-2022 Aldolase 3.4 U/L Normal 3.3-10.3 The [facility] Comment on above: Performed By: #### A LDOLAS ####[facility] [address] [address]Dr. Gema Beck CPKon 03-03-2022 CK [Catalytic activity/Vol] 205 U/L Normal 39-308 The [facility] Comment on above: Performed By: #### L DH, CK, EVI #### [facility] [address] [address] [address] Gema Beck LDHon 03-03-2022 LDH 180 U/L Normal 85-227 The [facility] Comment on above: Performed By: #### L DH, CK, EVI #### [facility] [address] [address] [address] Gema Beck MYOGLOBINon 03-03-2022 EVI 65 ng/mL Normal 16-96 The [facility] Comment on above: Performed By: #### L DH, CK, EVI #### [facility] [address] [address] [address] Gema Beck CBC AUTO DIFFon 02-23-2022 BASO # 0.1 103/ul Normal 0.0-0.1 [facility] Comment on above: Performed By: #### C BC ####[facility] [address] [address]DrSohail Beck Basophils/100 WBC (Bld) 1.1 % Normal 0.2-2.0 [facility] Comment on above: Performed By: #### C BC ####[facility] [address] [address]DrSohail Beck EO # 0.1 103/ul Normal 0.0-0.7 [facility] Comment on above: Performed By: #### C BC ####[facility] [address] [address]Dr. Gema Beck Eosinophils/100 WBC (Bld) 1.5 % Normal 0.9-7.0 [facility] Comment on above: Performed By: #### C BC ####[facility] [address] [id number] Beck Erythrocyte distribution width (RBC) [Ratio] 12.0 % Normal 11.0-15.0 [facility] Comment on above: Performed By: #### C BC ####[facility] [address] [address]DrSohail Beck Hematocrit (Bld) [Volume fraction] 42.9 % Normal 42.0-54.0 [facility] Comment on above: Performed By: #### C BC ####[facility] [address] [address]Dr. Gema Beck Hemoglobin (Bld) [Mass/Vol] 14.0 g/dL Normal 14.0-18.0 [facility] Comment on above: Performed By: #### C BC ####[facility] [address] [address]Dr. Gema Beck IG # 0.04 10e3/ul Critically high 0.00-0.03 [facility] Comment on above: Performed By: #### C BC ####[facility] [address] [address]Dr. Gema Kiran IG % 0.6 % Critically high 0.0-0.5 [facility] Comment on above: Performed By: #### C BC ####[facility] [address] [place], [place] [address]Dr. Enedeliaamairani Beck LYMPH # 2.1 103/ul Normal 1.2-3.8 [facility] Comment on above: Performed By: #### C BC ####[facility] [address] [place], [place] [address]Dr. Enedeliaamairani Beck Lymphocytes/100 WBC (Bld) 28.6 % Normal 20.5-60.0 [facility] Comment on above: Performed By: #### C BC ####[facility] [address] [place], [place] [address]Dr. Enedeliaamairani Beck MANUAL DIFF REQ NO Normal [facility] Comment on above: Performed By: #### C BC ####[facility] [address] [place], [place] [address]Dr. Gema Kiran MCH (RBC) [Entitic mass] 31.9 pg Normal 25.9-34.0 The [facility] Comment on above: Performed By: #### C BC ####[facility] [address] [place], [place] [address]Dr. Gema Beck MCHC (RBC) [Mass/Vol] 32.6 g/dL Normal 29.9-35.2 The [facility] Comment on above: Performed By: #### C BC ####[facility] [address] [id number]. Gema Beck MCV (RBC) [Entitic vol] 97.7 fL Critically high 80.0-94.0 The [facility] Comment on above: Performed By: #### C BC ####[facility] [address] [id number]. Gema Beck MONO # 0.6 103/ul Normal 0.3-0.8 [facility] Comment on above: Performed By: #### C BC ####[facility] [address] [id number]. Gema Kiran Monocytes/100 WBC (Bld) 7.8 % Normal 1.7-12.0 [facility] Comment on above: Performed By: #### C BC ####[facility] [address] [place], [place] [address]Dr. Gema Beck NEUT # 4.4 103/ul Normal 1.4-6.5 [facility] Comment on above: Performed By: #### C BC ####[facility] [address] [id number]. Gema Kiran Neutrophils/100 WBC (Bld) 60.4 % Normal 43.0-75.0 The [facility] Comment on above: Performed By: #### C BC ####[facility] [address] [id number]. Gema Kiran Platelet mean volume (Bld) [Entitic vol] 9.2 fL Critically low 9.5-13.5 The [facility] Comment on above: Performed By: #### C BC ####[facility] [address] [place], [place] [id number]. Gema Kiran PLT 376 103/ul Normal 150-450 The [facility] Comment on above: Performed By: #### C BC ####[facility] [address] [id number]. Gema Beck RBC 4.39 106/ul Critically low 4.70-6.10 [facility] Comment on above: Performed By: #### C BC ####[facility] [address] [id number]. Gema Beck WBC 7.2 103/ul Normal 4.0-11.0 [facility] Comment on above: Performed By: #### C BC ####[facility] [address] [address]Dr. Gema Beck PROF 14(COMP METB)on 022 Albumin [Mass/Vol] 3.7 g/dL Normal 3.4-5.0 [facility] Comment on above: Performed By: #### C MP #### [facility] [address] [address] [address] Gema Beck Albumin/Globulin [Mass ratio] 1.1 {ratio} Normal [facility] Comment on above: Performed By: #### C MP #### [facility] [address] [address] [address] Gema Beck ALP [Catalytic activity/Vol] 67 U/L Normal 46-116 [facility] Comment on above: Performed By: #### C MP #### [facility] [address] [address] [address] Gema Beck ALT [Catalytic activity/Vol] 28 U/L Normal 16-63 [facility] Comment on above: Performed By: #### C MP #### [facility] [address] [address] [address] Gema Beck Anion gap [Moles/Vol] 10.3 mmol/L Normal [facility] Comment on above: Performed By: #### C MP #### [facility] [address] [address] [address] Gema Beck AST [Catalytic activity/Vol] 19 U/L Normal 15-37 [facility] Comment on above: Performed By: #### C MP #### [facility] [address] [address] [address] Gema Beck Bilirubin [Mass/Vol] 0.5 mg/dL Normal 0.2-1.0 [facility] Comment on above: Performed By: #### C MP #### [facility] [address] [address] [address] Gema Beck Calcium [Mass/Vol] 8.8 mg/dL Normal 8.5-10.1 [facility] Comment on above: Performed By: #### C MP #### [facility] [address] [place] [address] Dr. Gema Beck Chloride [Moles/Vol] 104 mmol/L Normal 98-107 The [facility] Comment on above: Performed By: #### C MP #### [facility] [address] [address] [address] Gema Beck CO2 [Moles/Vol] 30.0 mmol/L Normal 21.0-32.0 [facility] Comment on above: Performed By: #### C MP #### [facility] [address] [place] [address] Dr. Gema Beck Creatinine [Mass/Vol] 0.86 mg/dL Normal 0.70-1.30 The [facility] Comment on above: Performed By: #### C MP #### [facility] [address] [place] [address] Dr. Gema Beck EGFR-AF BRUNEIAN >60 Normal >=60 [facility] Comment on above: Performed By: #### C MP #### [facility] [address] [place] [address] Dr. Gema Beck EGFR-NON AF BRUNEIAN >60 Normal >=60 The [facility] Comment on above: Performed By: #### C MP #### [facility] [address] [place] [address] Dr. Gema Beck Globulin (S) [Mass/Vol] 3.5 g/dL Normal [facility] Comment on above: Performed By: #### C MP #### [facility] [address] [place] [address] Dr. Gema Beck Glucose [Mass/Vol] 103 mg/dL Normal 74-106 [facility] Comment on above: Performed By: #### C MP #### [facility] [address] [place] [address] Dr. Gema Beck Potassium [Moles/Vol] 4.3 mmol/L Normal 3.5-5.1 [facility] Comment on above: Performed By: #### C MP #### [facility] [address] [address] [address] Gema Beck Protein [Mass/Vol] 7.2 g/dL Normal 6.4-8.2 [facility] Comment on above: Performed By: #### C MP #### [facility] [address] [address] [address] Gema Beck Sodium [Moles/Vol] 140 mmol/L Normal 136-145 [facility] Comment on above: Performed By: #### C MP #### [facility] [address] [address] [address] Gema Beck Urea nitrogen [Mass/Vol] 18.0 mg/dL Normal 7.0-18.0 [facility] Comment on above: Performed By: #### C MP #### [facility] [address] [address] [address] Gema Beck Urea nitrogen/Creatinine [Mass ratio] 20.9 mg/mg Normal [facility] Comment on above: Performed By: #### C MP #### [facility] [address] [address] [address] Gema Beck XR CHEST (2 VW)on [...] Terence Leroy MD 02/14/20 Final result Normal [facility] XR CHEST STANDARD (2 VW)on 0 02-14-2020 Negative chest. [facility] l[facility]- [place], [place] EXAMINATION: TWO XRA Y VIEWS OF THE CHEST 02/14/2020 2:30 pm COMPARISON: None. HISTORY: ORDERING SYSTEM PROVIDED HISTORY: insure deep inspiration FINDINGS: The lungs are without acute focal process. No effusion or pneumothorax. The cardiomediastinal silhouette is normal. The osseous structures are intact without acute process. [place], [place], [facility] Incoming Radiant Results From [employer] - 02/14/2020 2:38 PM EDT EXAMINATION: TWO XRAY VIEWS OF THE CHEST 02/14/2020 2:30 pm COMPARISON: None. HISTORY: ORDERING SYSTEM PROVIDED HISTORY: insure deep inspiration FINDINGS: The lungs are without acute focal process. No effusion or pneumothorax. The cardiomediastinal silhouette is normal. The osseous structures are intact without acute process. IMPRESSION: Negative chest. [facility] [place] Vital Signs Date Time Vital Sign Value Performing Clinician Facility 09-25-2024 15:33-0500 Body mass index (BMI) [Ratio] 44.19 kg/m2 Shavonne Chowdary EXTRACORPOREAL TECHNICIAN Work Phone: [facility] 09-25-2024 15:33-0500 Body temperature 98.71 [degF] Shavonne Mckeonz EXTRACORPOREAL TECHNICIAN Work Phone: [facility] 09-25-2024 15:33-0500 Body weight 139.71 kg Shavonne Mckeonz EXTRACORPOREAL TECHNICIAN Work Phone: [facility] 09-25-2024 15:33-0500 Diastolic blood pressure 88 mm[Hg] Shavonne Mckeonz EXTRACORPOREAL TECHNICIAN Work Phone: [facility] 09-25-2024 15:33-0500 Heart rate 93 /min Shavonne Mckeonz EXTRACORPOREAL TECHNICIAN Work Phone: [facility] 09-25-2024 15:33-0500 Respiratory rate 20 /min Shavonne Mckeonz EXTRACORPOREAL TECHNICIAN Work Phone: [facility] 09-25-2024 15:33-0500 SaO2% (BldA) [Mass fraction] 96 % Shavonne Mckeonz EXTRACORPOREAL TECHNICIAN Work Phone: [facility] 09-25-2024 15:33-0500 Systolic blood pressure 108 mm[Hg] Shavonne Mckeonz EXTRACORPOREAL TECHNICIAN Work Phone: [facility] 09-13-2024 10:40-0500 Diastolic blood pressure 84 mm[Hg] Shavonne Mckeonz EXTRACORPOREAL TECHNICIAN Work Phone: [facility] 09-13-2024 10:40-0500 Heart rate 62 /min Shavonnechandrika Wongholz EXTRACORPOREAL TECHNICIAN Work Phone: [facility] 09-13-2024 10:40-0500 Systolic blood pressure 142 mm[Hg] Shavonne Mikez EXTRACORPOREAL TECHNICIAN Work Phone: [facility] 09-13-2024 10:03-0500 Body mass index (BMI) [Ratio] 43.19 kg/m2 Shavonne Marvinholz EXTRACORPOREAL TECHNICIAN Work Phone: [facility] 09-13-2024 10:03-0500 Body temperature 98.2 [degF] Shavonne Marvinholz EXTRACORPOREAL TECHNICIAN Work Phone: [facility] 09-13-2024 10:03-0500 Body weight 136.53 kg Shavonnechandrika Wongholz EXTRACORPOREAL TECHNICIAN Work Phone: [facility] 09-13-2024 10:03-0500 Respiratory rate 20 /min Shavonne Marvinholz EXTRACORPOREAL TECHNICIAN Work Phone: [facility] 09-13-2024 10:03-0500 SaO2% (BldA) [Mass fraction] 95 % Shavonne Marvinholz EXTRACORPOREAL TECHNICIAN Work Phone: [facility] 09-05-2024 14:28-0500 Body height 177.8 cm Shavonne Marvinholz EXTRACORPOREAL TECHNICIAN Work Phone: [facility] 09-05-2024 14:28-0500 Body mass index (BMI) [Ratio] 44.25 kg/m2 Shavonne Dayannahholz EXTRACORPOREAL TECHNICIAN Work Phone: [facility] 09-05-2024 14:28-0500 Body temperature 98.8 [degF] Shavonne Dayannahholz EXTRACORPOREAL TECHNICIAN Work Phone: [facility] 09-05-2024 14:28-0500 Body weight 139.89 kg Shavonne Dayannahholz EXTRACORPOREAL TECHNICIAN Work Phone: [facility] 09-05-2024 14:28-0500 Diastolic blood pressure 90 mm[Hg] Shavonne Epi EXTRACORPOREAL TECHNICIAN Work Phone: [facility] 09-05-2024 14:28-0500 Heart rate 84 /min Shavonne Epi EXTRACORPOREAL TECHNICIAN Work Phone: [facility] 09-05-2024 14:28-0500 Respiratory rate 22 /min Shavonne Epi EXTRACORPOREAL TECHNICIAN Work Phone: [facility] 09-05-2024 14:28-0500 SaO2% (BldA) [Mass fraction] 96 % Shavonnechandrika Chowdary EXTRACORPOREAL TECHNICIAN Work Phone: [facility] 09-05-2024 14:28-0500 Systolic blood pressure 120 mm[Hg] Shavonne Mikez EXTRACORPOREAL TECHNICIAN Work Phone: [facility] 06-26-2024 12:04-0500 Blood Pressure Location Wendi Orzech [facility] 06-26-2024 12:04-0500 Diastolic blood pressure 78 mm[Hg] Wendi Orzech [facility] 06-26-2024 12:04-0500 Heart rate 73 /min Wendi Orzech [facility] 06-26-2024 12:04-0500 Systolic blood pressure 138 mm[Hg] Wendi Orzech [facility] 06-26-2024 09:31-0500 Body height 177.8 cm Shavonne Epi EXTRACORPOREAL TECHNICIAN Work Phone: [facility] 06-26-2024 09:31-0500 Body mass index (BMI) [Ratio] 44.11 kg/m2 Shavonne Epi EXTRACORPOREAL TECHNICIAN Work Phone: [facility] 06-26-2024 09:31-0500 Body temperature 98.1 [degF] Shavonne Mckeonz EXTRACORPOREAL TECHNICIAN Work Phone: [facility] 06-26-2024 09:31-0500 Body weight 139.44 kg Shavonnechandrika Mckeonz EXTRACORPOREAL TECHNICIAN Work Phone: [facility] 06-26-2024 09:31-0500 Diastolic blood pressure 82 mm[Hg] Shavonne Aichholz EXTRACORPOREAL TECHNICIAN Work Phone: [facility] 06-26-2024 09:31-0500 Heart rate 64 /min Shavonne Dayannahholz EXTRACORPOREAL TECHNICIAN Work Phone: [facility] 06-26-2024 09:31-0500 Respiratory rate 19 /min Shavonne Marvinholz EXTRACORPOREAL TECHNICIAN Work Phone: [facility] 06-26-2024 09:31-0500 SaO2% (BldA) [Mass fraction] 97 % Shavonne Marvinholz EXTRACORPOREAL TECHNICIAN Work Phone: [facility] 06-26-2024 09:31-0500 Systolic blood pressure 122 mm[Hg] Shavonnechandrika Wongholz EXTRACORPOREAL TECHNICIAN Work Phone: [facility] 02-21-2024 09:29-0400 Blood Pressure Location Wendi Orzech [facility] 02-21-2024 09:29-0400 Diastolic blood pressure 81 mm[Hg] Wendi Orzech [facility] 02-21-2024 09:29-0400 Heart rate 101 /min Wendi Orzech [facility] 02-21-2024 09:29-0400 Respiratory rate 16 /min Wendi Orzech [facility] 02-21-2024 09:29-0400 Systolic blood pressure 136 mm[Hg] Wendi Orzech [facility] 12-05-2023 13:49-0400 Blood Pressure Location Javier DOWNS [facility] 12-05-2023 13:49-0400 Diastolic blood pressure 84 mm[Hg] Javier DOWNS [facility] 12-05-2023 13:49-0400 Heart rate 87 /min Javier DOWNS [facility] 12-05-2023 13:49-0400 Respiratory rate 16 /min Javier DOWNS [facility] 12-05-2023 13:49-0400 Systolic blood pressure 131 mm[Hg] Javier DOWNS [facility] 09-29-2023 13:07-0500 Body height 177.8 cm Shavonne Chowdary EXTRACORPOREAL TECHNICIAN Work Phone: [facility] 09-29-2023 13:07-0500 Body mass index (BMI) [Ratio] 45.31 kg/m2 Shavonne Chowdary EXTRACORPOREAL TECHNICIAN Work Phone: [facility] 09-29-2023 13:07-0500 Body temperature 98.2 [degF] Shavonne Chowdary EXTRACORPOREAL TECHNICIAN Work Phone: [facility] 09-29-2023 13:07-0500 Body weight 143.25 kg Shavonne Chowdary EXTRACORPOREAL TECHNICIAN Work Phone: [facility] 09-29-2023 13:07-0500 Diastolic blood pressure 88 mm[Hg] Shavonne Chowdary EXTRACORPOREAL TECHNICIAN Work Phone: [facility] 09-29-2023 13:07-0500 Heart rate 91 /min Shavonne Chowdary EXTRACORPOREAL TECHNICIAN Work Phone: [facility] 09-29-2023 13:07-0500 Respiratory rate 19 /min Shavonne Wongkia EXTRACORPOREAL TECHNICIAN Work Phone: [facility] 09-29-2023 13:07-0500 SaO2% (BldA) [Mass fraction] 98 % Shavonne Wongkia EXTRACORPOREAL TECHNICIAN Work Phone: [facility] 09-29-2023 13:07-0500 Systolic blood pressure 138 mm[Hg] Shavonne Wongkia EXTRACORPOREAL TECHNICIAN Work Phone: [facility] 03-28-2023 11:36-0400 Blood Pressure Location Javier DOWNS [facility] 03-28-2023 11:36-0400 Diastolic blood pressure 80 mm[Hg] Javier DOWNS [facility] 03-28-2023 11:36-0400 Heart rate 84 /min Javier DOWNS [facility] 03-28-2023 11:36-0400 Respiratory rate 16 /min Javier ODWNS [facility] 03-28-2023 11:36-0400 Systolic blood pressure 135 mm[Hg] Javier DOWNS [facility] 01-03-2023 11:30-0400 Body height 177.8 cm Carrie Staples Other [employer] [facility] [employer] Other 01-03-2023 11:30-0400 Body mass index (BMI) [Ratio] 45.59 kg/m2 Carrie Staples Other [employer] Other 01-03-2023 11:30-0400 Body weight 144.15 kg Carrie Staples Other [employer] Other 01-03-2023 11:30-0400 Diastolic blood pressure 75 mm[Hg] Carrie Staples Other [employer] Other 01-03-2023 11:30-0400 Respiratory rate 18 /min Carrie Staples Other [employer] Other 01-03-2023 11:30-0400 SaO2% (BldA) [Mass fraction] 95 % Carrie Staples Other [employer] Other 01-03-2023 11:30-0400 Systolic blood pressure 112 mm[Hg] Carrie Staples Other [employer] Other 02-14-2020 14:16-0400 BP Diastolic 79 mm[Hg] [facility] [place] 02-14-2020 14:16-0400 BP Systolic 118 mm[Hg] [facility] [employer] [place] 02-14-2020 14:16-0400 Pulse (Heart Rate) 87 /min [facility] [place] 02-14-2020 14:16-0400 Pulse Oximetry 97 % [facility] [place] 02-14-2020 13:29-0400 Body Temperature 97.39 [degF] [facility] [place] 02-14-2020 13:29-0400 Respiratory Rate 16 /min [facility] [place] Encounters Encounter Date Encounter Type Care Provider Facility Start: 10-08-2024 ambulatory Wendi X Mac Facilit y:ALONSO Gonzalez Start: 10-03-2024 ambulatory Shavonne mckeon DIRECTOR OF AGRONOMY-LEAD BURNER HELPER Facility:[facility] Start: 09-25-2024 End: 09-25-2024 Office outpatient visit 15 minutes Shavonne Chowdary EXTRACORPOREAL TECHNICIAN Work Phone: [facility] Comment on above: COVID (Primary Dx); COPD with exacerbation (CMS/HCC); Morbid (severe) obesity due to excess calories (CMS/HCC); Body mass index (BMI) 40.0-44.9, adult (CMS/HCC); COPD mixed type (CMS/HCC) Start: 09-25-2024 End: 09-25-2024 ambulatory SHAVONNE EPI Not Available Start: 09-25-2024 End: 09-25-2024 Bamboo flowsheet Shavonne Epi EXTRACORPOREAL TECHNICIAN Work Phone: [facility] Start: 09-25-2024 End: 09-25-2024 Bamboo flowsheet Shavonne Epi EXTRACORPOREAL TECHNICIAN Work Phone: [facility] Start: 09-17-2024 ambulatory Shavonne mckeon DIRECTOR OF AGRONOMY-LEAD BURNER HELPER Facility:[facility] Start: 09-13-2024 End: 09-13-2024 Bamboo flowsheet Shavonne Epi EXTRACORPOREAL TECHNICIAN Work Phone: [facility] Start: 09-13-2024 End: 09-13-2024 Bamboo flowsheet Shavonne Dayannahholz EXTRACORPOREAL TECHNICIAN Work Phone: [facility] Start: 09-13-2024 End: 09-13-2024 Office outpatient visit 25 minutes Shavonne Chowdary EXTRACORPOREAL TECHNICIAN Work Phone: [facility] Comment on above: COPD with exacerbati on (CMS/HCC) (Primary Dx); Body mass index (BMI) 40.0-44.9, adult (CMS/HCC); Morbid (severe) obesity due to excess calories (CMS/HCC); Lumbosacral spondylosis without myelopathy; COPD mixed type (CMS/HCC); Wheezing Start: 09-13-2024 End: 09-13-2024 ambulatory SHAVONNE DAYANNAHHOLZ Not Available Start: 09-05-2024 End: 09-05-2024 Office outpatient visit 25 minutes Shavonne Chowdary EXTRACORPOREAL TECHNICIAN Work Phone: [facility] Comment on above: Benign hypertension (CMS/HCC) (Primary Dx); Morbid (severe) obesity due to excess calories (CMS/HCC); Body mass index (BMI) 40.0-44.9, adult ([facility]); Essential (primary) hypertension ([facility]); Upper respiratory tract infection, unspecified type; Lumbosacral spondylosis without myelopathy Start: 09-05-2024 End: 09-05-2024 ambulatory SHAVONNE CHOWDARY Not Available Start: 09-05-2024 End: 09-05-2024 Bamboo flowsheet Shavonne Epi EXTRACORPOREAL TECHNICIAN Work Phone: [facility] Start: 09-05-2024 End: 09-05-2024 Bamboo flowsheet Shavonne Epi EXTRACORPOREAL TECHNICIAN Work Phone: [facility] Start: 07-16-2024 End: 07-16-2024 Refill Shavonne Epi EXTRACORPOREAL TECHNICIAN Work Phone: [facility] Comment on above: Mild intermittent as thma with (acute) exacerbation ([facility]) Start: 07-11-2024 End: 07-11-2024 Clinisync Result Encounter Generic External Data Provider [facility] Unsolicited Start: 07-11-2024 End: 07-11-2024 Clinisync Result Encounter Generic External Data Provider [facility] External Department Unsolicited Start: 06-26-2024 End: 06-26-2024 Bamboo flowsheet Shavonne Chowdary EXTRACORPOREAL TECHNICIAN Work Phone: [facility] Start: 06-26-2024 End: 06-26-2024 Bamboo flowsheet Shavonnechandrika Chowdary EXTRACORPOREAL TECHNICIAN Work Phone: [facility] Start: 06-26-2024 End: 06-26-2024 ambulatory Wendi X Orzech Facility:[facility] Start: 06-26-2024 End: 06-26-2024 Patient encounter procedure Wendi X Orzech [facility] Start: 06-26-2024 End: 06-26-2024 ambulatory SHAVONNE EPI Not Available Start: 06-26-2024 End: 06-26-2024 Office outpatient visit 25 minutes Shavonne Chowdary EXTRACORPOREAL TECHNICIAN Work Phone: [facility] Comment on above: Benign hypertension (CMS/HCC) (Primary Dx); SALVATORE on CPAP; Morbid obesity with body mass index (BMI) of 40.0 to 44.9 in adult (CMS/HCC); Needs flu shot; Mild persistent asthma with exacerbation (CMS/HCC); SCOT (generalized anxiety disorder) (CMS/[facility]); Ventral hernia without obstruction or gangrene Start: 06-20-2024 End: 06-20-2024 Clinisync Result Encounter Generic External Data Provider [facility] External Department Unsolicited Start: 06-20-2024 End: 06-20-2024 Clinisync Result Encounter Generic External Data Provider [facility] External Department Unsolicited Start: 05-16-2024 End: 05-16-2024 Refill Shavonne Epi EXTRACORPOREAL TECHNICIAN Work Phone: [facility] Comment on above: SCOT (generalized anx iety disorder) (CMS/HCC); Other intervertebral disc degeneration, lumbar region Start: 04-26-2024 End: 04-27-2024 Refill Shavonne Epi EXTRACORPOREAL TECHNICIAN Work Phone: [facility] Comment on above: Other intervertebral disc degeneration, lumbar region Start: 04-17-2024 End: 04-17-2024 Refill Shavonne Mikez EXTRACORPOREAL TECHNICIAN Work Phone: [facility] Comment on above: Essential (primary) hypertension (CMS/HCC) Start: 04-12-2024 End: 04-13-2024 Clinisync Result Encounter Generic External Data Provider [facility] External Department Unsolicited Start: 04-12-2024 End: 04-13-2024 Clinisync Result Encounter Generic External Data Provider [facility] External Department Unsolicited Start: 02-21-2024 End: 02-21-2024 ambulatory SHAVONNE EPI Not Available Start: 02-21-2024 End: 02-21-2024 ambulatory Wendi Watts Facility:[facility] Start: 02-21-2024 End: 02-21-2024 Patient encounter procedure Wendi Watts [facility] Start: 01-23-2024 End: 01-23-2024 ambulatory Javier DOWNS Facility:[facility] Start: 01-23-2024 End: 01-23-2024 Patient encounter procedure Javier DOWNS [facility] Start: 12-21-2023 End: 12-21-2023 ambulatory SHAIKH NATHALY Not Available Start: 12-05-2023 End: 12-05-2023 ambulatory Javier DOWNS Facility:[facility] Start: 12-05-2023 End: 12-05-2023 Patient encounter procedure Javier DOWNS [facility] Start: 09-29-2023 Bamboo flowsheet Shavonne Chowdary EXTRACORPOREAL TECHNICIAN Work Phone: [facility] Start: 09-29-2023 Bamboo flowsheet Shavonne Chowdary EXTRACORPOREAL TECHNICIAN Work Phone: [facility] Start: 09-29-2023 End: 09-29-2023 ambulatory SHAVONNE CHOWDARY Not Available Start: 09-29-2023 End: 09-29-2023 Office outpatient visit 25 minutes Shavonne Chowdary EXTRACORPOREAL TECHNICIAN Work Phone: [facility] Comment [...] (CMS/HCC); Lung nodule Start: 09-26-2023 ambulatory Javier DOWNS Facili ty:[facility] Start: 04-21-2023 Telephone encounter Rafael sandoval MD Work Phone: Cardiothoracic Comment on above: Referral Information Start: 03-28-2023 End: 03-28-2023 Patient encounter procedure Javier DOWNS [facility] Start: 03-07-2023 End: 03-07-2023 Patient encounter procedure Javier DOWNS [facility] Start: 01-18-2023 End: 01-18-2023 ambulatory DANIELE DRISCOLL . Facility:[facility] Start: 01-13-2023 End: 01-14-2023 ambulatory LEAD [employer] HELPER SHAVONNE EPI Facility:[facility] Start: 01-03-2023 End: 01-03-2023 ambulatory Carrie Staples Other [employer] Other Start: 01-03-2023 Office outpatient vi sit 15 minutes Carrie Staples [facility] Start: 09-01-2022 End: 09-02-[address] DOCTOR LOVE Facility:[facility] Start: 07-28-2022 End: 07-29-2022 ambulatory ADITHYA SHAVONNE EPI Facility:[facility] Start: 07-05-2022 End: 07-06-[address] DARIN CHAPA Facility:[facility] Start: 06-29-2022 End: 06-30-2022 ambulatory LEAD [employer] HELPER SHAVONNE EPI Facility:[facility] Start: 03-03-2022 End: 03-04-2022 ambulatory LEAD B[employer]NER HELPER SHAVONNE EPI Facility:[facility] Start: 02-23-2022 End: 02-24-2022 ambulatory LEAD [employer] HELPER SHAVONNE EPI Facility:[facility] Start: 02-14-2020 End: 02-14-2020 Emergency department patient visit JOSHUA PEREZ [facility] Start: 02-14-2020 End: 02-14-2020 Emergency department patient visit Joshua Perez Work Phone: [facility] ED Comment on above: Dyspnea and respirat ory abnormalities (Primary Dx) Start: 08-28-2014 End: 08-28-2014 Telephone encounter Italo Pruitt MD Work Phone: Orthopaedics Comment on above: Surgical Followup Procedures Date Procedure Procedure Detail Performing Clinician Start: 07-11-2024 ALL CBC WITH AUTO DIFF Generic External Data Provider Start: 06-20-2024 ALL HGB HCT Generic Ex ternal Data Provider Start: 04-12-2024 ALL TESTOSTERONE Generi c External Data Provider Start: 06-29-2022 PSA screening LE[employer] SHAVONNE CHOWDARY Comment on above: Performed By: #### P [facility] ####[place] [id number] [place] [id number]. Gema Kiran Start: 02-14-2020 Radiologic exam ches t 2 views JOSHUA JORDAN Start: 02-14-2020 Radiologic exam ches t 2 views Joshua Fanny Perez Work Phone: Cooled radiofrequenc y ablation of nerve using ultrasonographic guidance Javier ODWNS Hydrocelectomy Javier Coy Knee region structur e (body structure) Javier DOWNS Large intestine excision Ligia DOWNS Shoulder region stru cture (body structure) Javier DOWNS Plan of Treatment Date Care Activity Detail Author Start: 12-24-2024 End: 12-24-2024 Patient encounter procedure 12/24/2024 9:40 AM EDT Office Visit [facility] [address] [place] [phone] Shvaonne Chowdary NP [address] [place] [phone] [facility] Start: 09-25-2024 End: 09-25-2024 Patient encounter procedure [facility] Comment on above: COPD with exacerbati on (CMS/HCC) (Primary Dx); Morbid (severe) obesity due to excess calories (CMS/HCC); Body mass index (BMI) 40.0-44.9, adult (CMS/HCC); COVID; COPD mixed type (CMS/HCC) Start: 09-13-2024 End: 09-13-2025 XR Chest 2 Views XR chest 2 views Imaging STAT COPD mixed type (CMS/HCC) COPD with exacerbation (CMS/HCC) Wheezing Expected: 09/13/2024 (Approximate), Expires: 09/13/2025 [facility] Work Phone: Comment on above: Expected: 09/13/2024 (Approximate), Expires: 09/13/2025 Start: 09-05-2024 End: 09-05-2024 Patient encounter procedure 09/05/2024 2:20 PM EST Office Visit [facility] [address] [place] [address] Shavonne Chowdary NP [address] [place] [phone] Benign hypertension (CMS/HCC) (Primary Dx); Morbid (severe) obesity due to excess calories (CMS/HCC); Body mass index (BMI) 40.0-44.9, adult (CMS/HCC) [facility] Comment on above: Benign hypertension (CMS/HCC) (Primary Dx); Morbid (severe) obesity due to excess calories (CMS/HCC); Body mass index (BMI) 40.0-44.9, adult (CMS/HCC) Start: 06-26-2024 End: 06-26-2024 Patient encounter procedure 06/26/2024 9:20 AM EST Office Visit [facility] [address] [place] [address] Shavonne Chowdary NP [address] [place] [phone] [facility] Start: 12-28-2023 End: 12-28-2023 Patient encounter procedure 12/28/2023 1:00 PM EDT Office Visit [facility] [address] [place] [address] Shavonne Chowdary NP [address] [place] [address] [facility] Start: 09-29-2023 End: 09-29-2024 CBC W Auto Differential panel - Blood CBC and differential Lab Routine Benign hypertension (CMS/HCC) Expected: 09/29/2023 (Approximate), Expires: 09/29/2024 [facility] Work Phone: Comment on above: Expected: 09/29/2023 (Approximate), Expires: 09/29/2024 Start: 09-29-2023 End: 09-29-2024 Comprehensive metabolic 2000 panel - Serum or Plasma Comprehensive metabolic panel Lab Routine Pre-diabetes Expected: 09/29/2023 (Approximate), Expires: 09/29/2024 [facility] Comment on above: Expected: 09/29/2023 (Approximate), Expires: 09/29/2024 Start: 09-29-2023 End: 09-29-2024 Hemoglobin A1c measurement Hemoglobin A1c Lab Routine Pre-diabetes Expected: 09/29/2023 (Approximate), Expires: 09/29/2024 [facility] Comment on above: Expected: 09/29/2023 (Approximate), Expires: 09/29/2024 Start: 09-29-2023 End: 09-29-2024 Lipid 1996 panel - Serum or Plasma Lipid panel Lab Routine High cholesterol (CMS/HCC) Expected: 09/29/2023 (Approximate), Expires: 09/29/2024 [facility] Comment on above: Expected: 09/29/2023 (Approximate), Expires: 09/29/2024 Start: 09-29-2023 End: 09-29-2024 Microalbumin/Creatinine panel in random Urine Microalbumin / creatinine, urine ratio Lab Routine Benign hypertension (CMS/HCC) Pre-diabetes Expected: 09/29/2023 (Approximate), Expires: 09/29/2024 [facility] Comment on above: Expected: 09/29/2023 (Approximate), Expires: 09/29/2024 Start: 09-29-2023 End: 09-29-2024 Prostate specific Ag [Mass/volume] in Serum or Plasma PSA Lab Routine Screening for prostate cancer Expected: 09/29/2023 (Approximate), Expires: 09/29/2024 [facility] Comment on above: Expected: 09/29/2023 (Approximate), Expires: 09/29/2024 Start: 09-29-2023 End: 09-29-2024 Urinalysis complete panel - Urine Urinalysis with reflex microscopic (clean catch) Lab Routine Benign hypertension (CMS/HCC) Pre-diabetes Expected: 09/29/2023 (Approximate), Expires: 09/29/2024 [facility] Comment on above: Expected: 09/29/2023 (Approximate), Expires: 09/29/2024 Start: 04-22-2023 Influenza vaccination Influenza Vacc ine (#1) [facility] Start: 08-22-2022 Depression Assessment Depression Ass essment [facility] Start: 2021 Prostate Cancer Screening Discussion Prostate Cancer Screening Discussion [facility] Start: 04-22-2021 Influenza vaccination INFLUENZ A (Season Ended) [facility] Start: 04-22-2020 Influenza vaccination Flu vacc ine (Season Ended) [place], [place] Start: 2016 Screening for malign ant neoplasm of colon [place], [place] Start: 2016 Shingles Vaccine (1 of 2) Shingles Vaccine (1 of 2) [place] Start: 2016 SHINGRIX VACCINE (1 of 2) SHINGRIX VACCINE (1 of 2) [facility] Start: 2011 Cologuard (FIT-DNA) Cologuard (FIT-D NA) [facility] Start: 2011 Colonoscopy Colonoscopy [facility] Start: 2011 Colorectal Cancer Screening Colorectal Cancer Screening [facility] Start: [address] COLONOGRAPHY [facility] Start: 2011 DIABETES SCREEN DIABETES SCREEN [facility] Start: 2011 Diabetes Screening Diabetes Screenin g [facility] Start: 2011 Fecal Occult Blood Fecal Occult Bloo d [facility] Start: 2011 SIGMOIDOSCOPY SIGMOIDOSCOPY [facility] Start: 2006 Lipid panel Lipid screen [place], [place] Start: 2001 Lipid 1996 panel - S dayanara or Plasma Lipid Screening [facility] Start: 2001 LIPID SCREEN LIPID SCREEN [facility] Start: 1985 DTaP/Tdap/Td vaccine (1 - Tdap) DTaP/Tdap/Td vaccine (1 - Tdap) [place], [place] Start: 1985 Urine microalbumin profile [facility] Start: 1984 HEPATITIS C SCREENING HEPATITIS C SC REENING [facility] Start: 1984 HIV SCREENING HIV SCREENING [facility] Start: 1981 HIV screening HIV screen [place], [place] Start: 1978 Adult depression screening assessment DEPRESSION SCREENING [facility] Start: 1966 Covid-19 Vaccine (#1) Covid-19 Vacci ne (#1) [facility] Start: 1966 Creatinine measurement Creatinine mo nitoring [place], [place] Start: 1966 Hepatitis B Vaccine (1 of 3 - 3-dose series) Hepatitis B Vaccine (1 of 3 - 3-dose series) [facility] Start: 1966 Potassium monitoring Potassium monit [place], [place] Immunizations Immunization Date Immunization Notes Care Provider Claire jimenez 06-26-2024 influenza virus vaccine, unspecified formulation Wendi Watts [facility] Comment on above: Result Comment: 2023: PT TOLERATED INJECTION WELL WITH OUT NO ADVERSE REACTION DURING PROCEDURE 06-26-2024 Influenza, injectabl e, Madin Gardners Canine Kidney, preservative free, quadrivalent Shavonne Aichholz EXTRACORPOREAL TECHNICIAN Work Phone: [facility] 07-02-2020 influenza virus vaccine, unspecified formulation Javier DOWNS [facility] 07-02-2020 Influenza, Seasonal, Quadrivalent, Adjuvanted Shavonne Aichholz EXTRACORPOREAL TECHNICIAN Work Phone: [facility] Payers Date Payer Category Payer Unknown [id number] 2014 [facility] BCBS [id number] 2014 Unknown BCBS BCBS OUT OF STATE xxxxxxxxxxxx 2014-Present [address] [place] [address] xxxxxxxxxxxx [id number] [id number] 2004 Unknown [id number] [id number]. 2.7.3.642125.315 2004 Unknown [id number]. 1.13.159. 2.7.3.438567.315 1966 Unknown [id number] 2.16.840.1.734246.3.579. 2.173 1966 Unknown [id number] 2.16.840.1.672883.3.579. 2.593 1966 Unknown [id number] 2.16.840.1.924101.3.579. 2.593 1966 Unknown [id number] 2.16.840.1.310934.3.579. 2.593 1966 Unknown [id number] 2.16.840.1.316285.3.579. 2.593 1966 Unknown [id number] 2.16.840.1.144679.3.579. 2.593 1966 Unknown [id number] 2.16.840.1.179826.3.579. 2.593 1966 Unknown [id number] 2.16.840.1.192013.3.579. 2.593 1966 Unknown [id number] 2.16.840.1.409147.3.579. 2.593 1966 Unknown [id number] 2.16.840.1.763912.3.579. 2.727 1966 Unknown [id number] 2.16.840.1.470436.3.579. 2.727 1966 Unknown [id number] 2.16.840.1.661836.3.579. 2.727 1966 Unknown [id number] 2.16.840.1.054414.3.579. 2.727 1966 Unknown [id number] 2.16.840.1.028369.3.579. 2.727 1966 Unknown [id number] 2.16.840.1.880548.3.579. 2.727 1966 Unknown [id number] 2.16.840.1.804627.3.579. 2.196 1966 Unknown [id number] 2.16.840.1.563202.3.579. 2.196 1966 Unknown [id number] 2.16.840.1.291079.3.579. 2.1259 1966 Unknown [id number] 2.16.840.1.239584.3.579. 2.1259 1966 Unknown [id number] 2.16.840.1.642334.3.579. 2.1259 1966 Unknown [id number] 2.16.840.1.172958.3.579. 2.1259 1966 Unknown [id number] 2.16.840.1.235760.3.579. 2.1259 1966 Unknown [id number] 2.16.840.1.730500.3.579. 2.1259 1966 Unknown [id number] 2.16.840.1.948071.3.579. 2.1259 1959 Unknown [id number] Social History Date Type Detail Facility Start: 02-14-2020 End: 12-21-2023 Tobacco smoking status FLIS Former smoker [facility] History of tobacco use Cigarette Smoker [place], [place] Start: 1965 Sex Assigned At Not on file [place], [place] Exposure to SARS-CoV -2 (event) Unable to assess [place] Start: 07-30-2014 Tobacco smoking status [facility] Current every day smoker [facility] Start: 07-30-2014 End: 09-29-2023 Cigarettes smoked current (pack per day) - Reported [facility] Start: 07-30-2014 Tobacco use and exposure Never used [facility] Start: 07-30-2014 End: 09-25-2024 Alcohol intake Current drinker of alcohol (finding) [facility] Start: 07-30-2014 Alcohol Comment social [facility] Start: 08-24-2023 End: 09-29-2023 Sex Assigned At [facility] Tobacco smoking status Never [facility] History of tobacco use Current smoker [facility] Start: 09-27-2023 Alcohol Comment monthly or less, caffeine more than 4 cups per day [facility] Within the last year , have you been afraid of your partner or ex-partner? No [facility] Do you belong to any clubs or organizations such as yazidi groups, unions, fraternal or athletic groups, or [...] To some extent [facility] (I/We) worried [facility] (my/our) food would run out before (I/we) got money to buy more. Never true [facility] History of tobacco use Passive smoker [facility] Start: 1965 Sex assigned at Male [facility] Start: 05-28-2024 Gender identity Identifies as male gender (finding) [facility] Start: 05-28-2024 Sexual orientation Heterosexual (finding) [facility] Functional Status Date Assessment Result Facility 06-26-2024 Functional Status N/A [facility] 02-21-2024 Functional Status N/A [facility] 12-05-2023 Functional Status N/A [facility] 03-28-2023 Functional Status N/A [facility] 03-07-2023 Functional Status N/A [facility] Clinical Notes 08-28-2014 to 09-25-2024 Shavonne Chowdary NP - 09/25/2024 4:47 PM ESTShavonne Chowdary NP - 09/25/2024 3:20 PM Saranya Chowdary NP - 09/25/2024 7:28 AM Saranya Chowdary, AJIT - 09/25/2024 7:27 AM ESTPatient Instructions Note Date & Type Note Facility 09-25-2024 History of Present illness Narrative Associated Problem(s): COVID Sxs have resolved No acute dyspnea, fatigue, or wheeze or cough No fever Images from the original note were not included. Marcel Wahl is a 59 y.o. male presents with chief complaint of COPD HPI: Here for fu on URI/COVID: Feeling much better, no acute cough/dyspnea Feels ready to RTW No other acute complaints at this time SUBJECTIVE: MEDICATIONS: Current Outpatient Medications Medication Instructions albuterol HFA 90 mcg/act inhaler 2 puffs, Inhalation, Every 6 hours PRN albuterol 2.5 mg, Nebulization, Every 6 hours PRN amitriptyline (ELAVIL) 50 mg, Oral, Nightly Rlbnwfm-Rxvbloddhak-Zrlrlidgch (Breztri [employer]) 160-9-4.8 MCG/ACT aerosol 2 puffs, Inhalation, 2 times daily, Rinse mouth after use busPIRone (BUSPAR) 10 mg, Oral, 2 times [...] daily tadalafil (CIALIS) 10 mg, Daily PRN tadalafil (CIALIS) 5 mg, Daily Testosterone 1.62 % gel apply 2 (TWO) [...] and visual disturbance. Respiratory: Negative for apnea, cough, chest tightness, shortness of breath and wheezing. Cardiovascular: Negative for leg swelling. Gastrointestinal: Negative for abdominal distention, blood in stool, constipation and diarrhea. Genitourinary: Negative for decreased urine volume, difficulty urinating, dysuria and hematuria. Musculoskeletal: Positive for back pain. Skin: Negative for color change. 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 OBJECTIVE: Visit Vitals BP 108/88 (BP Location: Left arm, Patient Position: Sitting, BP Cuff Size: Large adult) Pulse 93 Temp 98.7 F (Temporal) Resp 20 Wt 308 lb SpO2 96% BMI 44.19 kg/m Smoking Status Former BSA 2.63 m Physical Exam Vitals and nursing note reviewed. Constitutional: Appearance: Normal appearance. HENT: Head: Normocephalic. Right Ear: External ear normal. Left Ear: External ear normal. Nose: Nose normal. Mouth/Throat: Mouth: Mucous membranes are moist. Pharynx: Oropharynx is clear. Eyes: Extraocular Movements: Extraocular movements intact. Conjunctiva/sclera: Conjunctivae normal. Cardiovascular: Rate and Rhythm: Normal rate and regular rhythm. Pulses: Normal pulses. Heart sounds: Normal heart sounds. Pulmonary: Effort: Pulmonary effort is normal. Breath sounds: Normal breath sounds. No wheezing, rhonchi or rales. Abdominal: General: Bowel sounds are normal. Palpations: Abdomen is soft. Musculoskeletal: Cervical back: Neck supple. Right lower leg: No edema. Left lower leg: No edema. Lymphadenopathy: Cervical: No cervical adenopathy. Skin: General: Skin is warm and dry. Capillary Refill: Capillary refill takes 2 to 3 seconds. Neurological: General: No focal deficit present. Mental Status: He is alert. Psychiatric: Mood and Affect: Mood normal. Behavior: Behavior normal. Thought Content: Thought content normal. Judgment: Judgment normal. ASSESSMENT AND PLAN: No follow-ups on file. Problem List Items Addressed This Visit Morbid (severe) obesity due to excess calories (CMS/HCC) Discussed with patient their BMI (actual, verses recommended). We have also discussed lifestyle modifications: attempts to perform physical activity as chronic conditions allow, also to monitor dietary intake: increasing protein/fruits/veggies and lowering carb intake (unless contraindicated). Limit sodas, juices, and sugary drinks. Body mass index (BMI) 40.0-44.9, adult (CMS/HCC) COPD mixed type (CMS/HCC) Current meds; albuterol, breztri, singulair Pt has stopped breztri, did not feel he needed it. We did speak for approx 5-7 minutes about his COPD dx. He is able to ride stationary bike for 30 minutes with no acute dyspnea, normally does not have an acute cough, wheeze or dyspnea COPD with exacerbation (CMS/HCC) - Primary Last visit was ordered cxr, nova meraz Ultimately did test +covid Here today: Doing well, finished atb, no longer using breztri RTW no restrictions on 09/26/24 COVID Sxs have resolved No acute dyspnea, fatigue, or wheeze or cough No fever Associated Problem(s): COPD with exacerbation (CMS/HCC) Last visit was ordered cxr, nova meraz Ultimately did test +covid Here today: Doing well, finished atb, no longer using breztri RTW no restrictions on 09/26/24 Associated Problem(s): COPD mixed type (CMS/HCC) Current meds; albuterol, breztri, singulair Pt has stopped breztri, did not feel he needed it. We did speak for approx 5-7 minutes about his COPD dx. He is able to ride stationary bike for 30 minutes with no acute dyspnea, normally does not have an acute cough, wheeze or dyspnea Associated Problem(s): Morbid (severe) obesity due to excess calories (CMS/HCC) Discussed with patient their BMI (actual, verses recommended). We have also discussed lifestyle modifications: attempts to perform physical activity as chronic conditions allow, also to monitor dietary intake: increasing protein/fruits/veggies and lowering carb intake (unless contraindicated). Limit sodas, juices, and sugary drinks. documented in this encounter [facility] 09-25-2024 Instructions Shavonne Chowdary NP - 09/25/2024 3:20 PM EST RTW 09/26/24 documented in this encounter [facility] 09-13-2024 History of Present illness Narrative Associated Problem(s): COPD with exacerbation ([facility]) Was getting better, then worse over weekend, fever too Will order new atb, nebs, and chest xray Fluids, rest, off work til 09/25/24 Go to ER if worsening sxs Outside of window to test flu/covid/RSV as it will not change treatment plan Pt thought he was better over the weekend, Tuesday night he had stopped coughing up mucus however he spiked a fever Tuesday night with a fever of 102F he had for three days finally broke last night and had started coughing up mucus again. He feels weak and fatigue. States his legs feel like rubber and has headaches Pt is asking for a nebulizer machine he believes his insurance will cover it Images from the original note were not included. Marcel Wahl is a 59 y.o. male presents with chief complaint of Letter for School/Work HPI: Fu for URI and lumbar back pain: Last appt given steroids, doxy, and cough meds Pt thought he was better over the weekend, Tuesday night he had stopped coughing up mucus however he spiked a fever Tuesday night with a fever of 102F he had for three days finally broke last night and had started coughing up mucus again. He feels weak and fatigue. States his legs feel like rubber and has headaches Pt is asking for a nebulizer machine he believes his insurance will cover it +wheeze, chest feels tight, ++sinus congestion, occ Nausea, no VD No hemoptysis SUBJECTIVE: MEDICATIONS: Current Outpatient Medications Medication Instructions albuterol HFA 90 mcg/act inhaler 2 puffs, Inhalation, Every 6 hours PRN albuterol 2.5 mg, Nebulization, Every 6 hours PRN amitriptyline (ELAVIL) 50 mg, Oral, Nightly Biymzah-Wgebyabvclh-Vzgbtxkbii (Breztri Aerosphere) 160-9-4.8 MCG/ACT aerosol 2 puffs, Inhalation, 2 times daily, Rinse mouth after use busPIRone (BUSPAR) 10 mg, Oral, 2 times daily cyclobenzaprine (Flexeril) 10 MG tablet 1 tablet, 2 times daily PRN doxycycline (VIBRA-TABS) 100 mg, Oral, 2 times daily, Take with a full glass of water and do not lie down for at least 30 minutes after. fluticasone (Flonase) 50 MCG/ACT nasal spray 2 sprays, Each Nostril, Daily hydroxychloroquine (Plaquenil) 200 MG tablet 1 tablet, 2 times daily levoFLOXacin (LEVAQUIN) 750 mg, Oral, Daily lisinopril-hydroCHLOROthiazide 10-12.5 MG tablet 1 tablet, Oral, Daily montelukast (SINGULAIR) 10 mg, Oral, Nightly nabumetone (RELAFEN) 1,000 mg, 2 times daily tadalafil (CIALIS) 10 mg, Daily PRN tadalafil (CIALIS) 5 mg, Daily Testosterone 1.62 % gel apply 2 (TWO) pumps topically EVERY MORNING ALLERGIES: Allergies Allergen Reactions Demerol Hcl [Meperidine] Hallucinations Meperidine Hcl Other Reaction(s): hallucination Morphine Other Reaction(s): hallucination Penicillin G GI intolerance REVIEW OF SYMPTOMS: Review of Systems Constitutional: Positive for fatigue and fever. Negative for activity change, appetite change and unexpected weight change. HENT: Positive for congestion and sinus pressure. Negative for ear pain, nosebleeds, sneezing, trouble swallowing and voice change. Eyes: Negative for pain, discharge and visual disturbance. Respiratory: Positive for cough, chest tightness and wheezing. Negative for apnea. Cardiovascular: Negative for leg swelling. Gastrointestinal: Negative for abdominal distention, blood in stool, constipation and diarrhea. Genitourinary: Negative for decreased urine volume, difficulty urinating, dysuria and hematuria. Musculoskeletal: Positive for arthralgias. Skin: Negative for color change and rash. Neurological: Negative for dizziness, tremors and seizures. 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 OBJECTIVE: Visit Vitals BP 142/84 (BP Location: Left arm, Patient Position: Sitting, BP Cuff Size: Large adult) Pulse 62 Temp 98.2 F (Temporal) Resp 20 Wt 301 lb SpO2 95% BMI 43.19 kg/m Smoking Status Former BSA 2.6 m Physical Exam Vitals and nursing note reviewed. Constitutional: Appearance: Normal appearance. HENT: Head: Normocephalic. Right Ear: Tympanic membrane, ear canal and external ear normal. Left Ear: Tympanic membrane, ear canal and external ear normal. Nose: Congestion and rhinorrhea present. Mouth/Throat: Mouth: Mucous membranes are moist. Pharynx: No oropharyngeal exudate or posterior oropharyngeal erythema. Eyes: Extraocular Movements: Extraocular movements intact. Conjunctiva/sclera: Conjunctivae normal. Cardiovascular: Rate and Rhythm: Normal rate and regular rhythm. Pulses: Normal pulses. Heart sounds: Normal heart sounds. Pulmonary: Effort: Pulmonary effort is normal. Breath sounds: Wheezing (exp) present. No rhonchi. Musculoskeletal: Cervical back: Neck supple. Right lower [...] ASSESSMENT AND PLAN: Follow up in about 10 days (around 09/23/2024) for Recheck. Problem List Items Addressed This Visit Lumbosacral spondylosis without myelopathy At last office visit, he was treated for URI, severe cough, that caused an increase in his lumbar back pain, was taken off work for 2 weeks d/t this... that is getting back to baseline Morbid (severe) obesity due to excess calories (CMS/HCC) Discussed with patient their BMI (actual, verses recommended). We have also discussed lifestyle modifications: attempts to perform physical activity as chronic conditions allow, also to monitor dietary intake: increasing protein/fruits/veggies and lowering carb intake (unless contraindicated). Limit sodas, juices, and sugary drinks. Body mass index (BMI) 40.0-44.9, adult (CMS/[facility]) COPD mixed type ([facility]) Relevant Medications albuterol (2.5 MG/3ML) 0.083% nebulizer solution Comvixj-Waqejvroani-Inqzibuoga (Breztri Aerosphere) 160-9-4.8 MCG/ACT aerosol Other Relevant Orders XR chest 2 views COPD with exacerbation ([facility]) - Primary Was getting better, then worse over weekend, fever too Will order new atb, nebs, and chest xray Fluids, rest, off work til 09/25/24 Go to ER if worsening sxs Outside of window to test flu/covid/RSV as it will not change treatment plan Relevant Medications levoFLOXacin (Levaquin) 750 MG tablet Other Relevant Orders XR chest 2 views Wheezing Relevant Orders XR chest 2 views Associated Problem(s): Lumbosacral spondylosis without myelopathy At last office visit, he was treated for URI, severe cough, that caused an increase in his lumbar back pain, was taken off work for 2 weeks d/t this... that is getting back to baseline Associated Problem(s): Morbid (severe) obesity due to excess calories ([facility]) Discussed with patient their BMI (actual, verses recommended). We have also discussed lifestyle modifications: attempts to perform physical activity as chronic conditions allow, also to monitor dietary intake: increasing protein/fruits/veggies and lowering carb intake (unless contraindicated). Limit sodas, juices, and sugary drinks. documented in this encounter [facility] 09-13-2024 Instructions Shavonne Chowdary NP - 09/13/2024 9:40 AM EST New atb: levaquin daily for 7 days, add nebulizer every 6 hours as needed Chest xray today please New inhaler: breztri 2 puffs every 12 hours, rinse mouth after use: take twice a day Off work unit 09/25/24 Go to ER if worsening in symptoms documented in this encounter [facility] 09-05-2024 History of Present illness Narrative Associated Problem(s): Lumbosacral spondylosis without myelopathy Off work for 2 weeks, and wants refill of elavil Steroids should help Associated Problem(s): URI (upper respiratory infection) Fluids, rest, atb, steroids, and tessalon pearles Pt has had congestion, headache, sob, tightness in the chest, wheezing, hard time breathing, coughing, tweaked/pulled back right/lower side, foggy, runny nose, fevers since Tuesday, hot and cold, nausea that comes and goes. Started last week Pt has been using inhaler Pt started taking the amitriptyline again since back started hurting. May need refills Images from the original note were not included. Marcel Wahl is a 59 y.o. male presents with chief complaint of Nasal Congestion HPI: Pt has had congestion, headache, sob, tightness in the chest, wheezing, hard time breathing, coughing, tweaked/pulled back right/lower side, foggy, runny nose, fevers since Tuesday, hot and cold, nausea that comes and goes. Started last week Pt has been using inhaler. At home COVID test negative Pt started taking the amitriptyline again since back started hurting. May need refills Hx of COPD Also d/t severe coughing, he has pulled a muscle in his low back, and has extensive lumbar DDD, he is asking d/t the current pain in his back, and his typical healing pattern with this, he is asking for the remainder of this week and next week to be off of work and a RTW date 09/17/24 SUBJECTIVE: MEDICATIONS: Current Outpatient Medications Medication Instructions albuterol HFA 90 mcg/act inhaler 2 puffs, Inhalation, Every 6 hours PRN amitriptyline (ELAVIL) 50 mg, Oral, Nightly benzonatate (TESSALON) 200 mg, Oral, 3 times daily PRN, Do not crush or chew. busPIRone (BUSPAR) 10 mg, Oral, 2 times daily cyclobenzaprine (Flexeril) 10 MG tablet 1 tablet, 2 times daily PRN doxycycline (VIBRA-TABS) 100 mg, Oral, 2 times daily, Take with a full glass of water and do not lie down for at least 30 minutes after. fluticasone (Flonase) 50 MCG/ACT nasal spray 2 sprays, Each Nostril, Daily hydroxychloroquine (Plaquenil) 200 MG tablet 1 tablet, 2 times daily lisinopril-hydroCHLOROthiazide 10-12.5 MG tablet 1 tablet, Oral, Daily montelukast (SINGULAIR) 10 mg, Oral, Nightly nabumetone (RELAFEN) 1,000 mg, 2 times daily predniSONE (DELTASONE) 20 mg, Oral, 2 times daily before meals tadalafil (CIALIS) 10 mg, Daily PRN tadalafil (CIALIS) 5 mg, Daily Testosterone 1.62 % gel apply 2 (TWO) pumps topically EVERY MORNING ALLERGIES: Allergies Allergen Reactions Demerol Hcl [Meperidine] Hallucinations Meperidine Hcl Other Reaction(s): hallucination Morphine Other Reaction(s): hallucination Penicillin G GI intolerance REVIEW OF SYMPTOMS: Review of Systems Constitutional: Positive for fatigue. Negative for activity change, appetite change and unexpected weight change. HENT: Negative for ear pain, nosebleeds, sneezing, trouble swallowing and voice change. Eyes: Negative for pain, discharge and visual disturbance. Respiratory: Positive for cough and wheezing. Negative for apnea and chest tightness. Cardiovascular: Negative for leg swelling. Gastrointestinal: Positive for abdominal pain (from coughing), nausea and vomiting. Negative for abdominal distention, blood in stool, [...] 09/28/2023 Spinal stenosis, lumbar 06/12/2014 Tortuous aorta ([facility]) 09/28/2023 Ventral hernia 09/28/2023 3.9) ; Has had herniasX2 for a while. Slightly tender with lifting, but not too bthersome. Reducible, no nausea. Past Surgical History: Procedure Laterality Date ACHILLES TENDON SURGERY 2007 COLECTOMY 2009 Procedure:sigmoid colon resection;Disease:intestinal dz COLONOSCOPY 11/03/2016 Dr Amaro No polyps/scarring from diverticulitis. Has abdominal hernias KNEE SURGERY Right arthroscopy TESTICLE SURGERY Procedure:Testicular hydrocele 2013 TONGUE SURGERY 02/2013 removal of tongue lesion family history includes Colon cancer in his paternal grandfather; Diabetes in his paternal grandmother; Heart disease in his father; Hypertension in his father. OBJECTIVE: Visit Vitals BP 120/90 Pulse 84 Temp 98.8 F (Temporal) Resp 22 Ht 5' 10 Wt 308 lb 6.4 oz SpO2 96% BMI 44.25 kg/m Smoking Status Former BSA 2.63 m Physical Exam Vitals and nursing note reviewed. Constitutional: Appearance: Normal appearance. He is obese. He is not ill-appearing. HENT: Head: Normocephalic. Right Ear: Tympanic membrane, ear canal and external ear normal. Left Ear: Tympanic membrane, ear canal and external ear normal. Nose: Congestion and rhinorrhea present. Mouth/Throat: Mouth: Mucous membranes are moist. Pharynx: Oropharynx is clear. No oropharyngeal exudate or posterior oropharyngeal erythema. Eyes: Extraocular Movements: Extraocular movements intact. Conjunctiva/sclera: Conjunctivae normal. Cardiovascular: Rate and Rhythm: Normal rate and regular rhythm. Pulses: Normal pulses. Heart sounds: Normal heart sounds. Pulmonary: Effort: Pulmonary effort is normal. Breath sounds: Wheezing (exp) present. Abdominal: General: Bowel sounds are normal. Palpations: Abdomen is soft. Tenderness: There is no abdominal tenderness. Hernia: A hernia is present. Comments: protuberant Musculoskeletal: Cervical back: Neck supple. Right lower leg: No edema. Left lower leg: No edema. Lymphadenopathy: Cervical: No cervical adenopathy. Skin: General: Skin is warm and dry. Capillary Refill: Capillary refill takes 2 to 3 seconds. Neurological: General: No focal deficit present. Mental Status: He is alert. Psychiatric: Mood and Affect: Mood normal. Behavior: Behavior normal. Thought Content: Thought content normal. Judgment: Judgment normal. ASSESSMENT AND PLAN: Follow up if symptoms worsen or fail to improve. Problem List Items Addressed This Visit Lumbosacral spondylosis without myelopathy Off work for 2 weeks, and wants refill of elavil Steroids should help Relevant Medications amitriptyline (Elavil) 50 MG tablet Benign hypertension (CMS/HCC) - Primary Please check blood pressure daily and record DASH diet Limit caffeine Take medication as directed Contact office if chest pain, pressure, dizziness, shortness of breath, swelling legs Recommend slow position changes Current meds: lisinopril/HCTZ Morbid (severe) obesity due to excess calories (CMS/HCC) Body mass index (BMI) 40.0-44.9, adult (CMS/HCC) URI (upper respiratory infection) Fluids, rest, atb, steroids, and tessalon pearles Relevant Medications doxycycline (Vibra-Tabs) 100 MG tablet predniSONE (Deltasone) 20 MG tablet benzonatate (Tessalon) 200 MG capsule Other Visit Diagnoses Essential (primary) hypertension (CMS/HCC) Relevant Medications lisinopril-hydroCHLOROthiazide 10-12.5 MG tablet Associated Problem(s): Benign hypertension (CMS/HCC) Please check blood pressure daily and record DASH diet Limit caffeine Take medication as directed Contact office if chest pain, pressure, dizziness, shortness of breath, swelling legs Recommend slow position changes Current meds: lisinopril/HCTZ documented in this encounter [facility] 09-05-2024 Instructions Shavonne Chowdary NP - 09/05/2024 2:20 PM EST Atb, steroids, tessalon pearls for cough, come back if not better Refilled amitriptyline at 50mg Steroids should help with back too Off work given documented in this encounter [facility] 06-26-2024 Evaluation + Plan note Diagnostic Tests PendingTestosterone Level Total 06/26/24 [facility] 06-26-2024 History of Present illness Narrative Associated Problem(s): Ventral hernia Advised of red flags to go to ER for No symptoms at this time Associated Problem(s): SCOT (generalized anxiety disorder) ([facility]) Continues with taking buspar BID, helps with [...] [facility] 09/28/2023 Benign hypertension ([facility]) 09/28/2023 BPH associated with nocturia 09/28/2023 COVID-19 virus infection Diverticulitis DJD of right shoulder Erectile dysfunction of organic origin SCOT (generalized anxiety disorder) ([facility]) 08/18/2023 High cholesterol ([facility]) 09/28/2023 Insomnia Mild persistent asthma with exacerbation ([facility]) 09/28/2023 Controlled with singulair. Does not need rescue inhaler Morbid obesity with body mass index (BMI) of 40.0 to 44.9 in adult ([facility]) 09/28/2023 SALVATORE on CPAP 09/28/2023 [...] Addressed This Visit SCOT (generalized anxiety disorder) ([facility]) Continues with taking buspar BID, helps with symptoms No adjustments needed at this time No SI/HI/Hallucinations SALVATORE on CPAP Compliant with PAP Approx hours of use daily: Mild persistent asthma with exacerbation ([facility]) Relevant Medications albuterol HFA 90 mcg/act inhaler Benign hypertension ([facility]) - Primary Please check blood pressure daily and record DASH diet Limit caffeine Take medication as directed Contact office if chest pain, pressure, dizziness, shortness of breath, swelling legs Recommend slow position changes Ventral hernia Advised of red flags to go to ER for No symptoms at this time Morbid obesity with body mass index (BMI) of 40.0 to 44.9 in adult ([facility]) Discussed with patient their BMI (actual, verses recommended). We have also discussed lifestyle modifications: attempts to perform physical activity as chronic conditions allow, also to monitor dietary intake: increasing protein/fruits/veggies and lowering carb intake (unless contraindicated). Limit sodas, juices, and sugary drinks. Needs flu shot Relevant Orders Flu vaccine, MDCK, quadrivalent, PF ([id number]) (Flucelvax single dose syringe) (Completed) Associated Problem(s): Morbid obesity with body mass index (BMI) of 40.0 to 44.9 in adult ([facility]) Discussed with patient their BMI (actual, verses [...] of use daily: documented in this encounter [facility] 02-21-2024 Hospital Discharge instructions Patient Education 02/21/2024 [...] therapy. Follow these instructions at home: Take [id number] and prescription medicines only as told by [...] provider. Document Revised: 04/09/2021 Document Reviewed: 04/09/2021 [employer] Patient Education 2022 Info. 02/21/2024 12:25:41 Benign Prostatic Hyperplasia Benign Prostatic [...] urethra. Follow these instructions at home: Take [id number]-lsqtggk and prescription medicines only as told by [...] provider. Document Revised: 02/24/2022 Document Reviewed: 02/24/2022 [employer] Patient Education 2022 Info. 02/21/2024 12:25:39 Erectile Dysfunction Erectile Dysfunction Erectile [...] Follow these instructions at home: Medicines Take jfjn-bcf-ganamfk and prescription medicines only as told by [...] provider. Document Revised: 11/04/2021 Document Reviewed: 11/04/2021 [employer] Patient Education 2022 Info. Follow Up Care 02/01/2024 11:50:53 With:NEVAEH HARKINS, Javier Jones, URL Address: [address] [place], [place] [id number]- When: Unknown Comments:Cystoscopy [facility] 02-21-2024 Evaluation + Plan note Diagnostic Tests PendingTestosterone Level Total 02/21/24 [facility] 02-21-2024 Note Patient Education Urology Hypogonadism, Male [...] Follow these instructions at home: ? Take pyje-ujf-kuhjopr and prescription medicines only as told by [...] Document Revised: (more content not included)... [facility] 12-05-2023 Hospital Discharge instructions Follow Up Care 12/05/2023 15:08:17 With:NEVAEH HARKINS, Javier Jones, URL Address: [facility] [address] , [place] [address] [phone] When: Unknown [facility] 12[facility]-2023 Hospital Discharge instructions Patient Education 12/05/2023 [...] Follow these instructions at home: Medicines Take nkei-rld-mzpdnsq and prescription medicines only as told by [...] provider. Document Revised: 11/04/2021 Document Reviewed: 11/04/2021 [employer] Patient Education 2022 [employer] Follow Up Care 09/27/2023 10:13:00 With:NEVAEH HARKINS, Javier Jones, URL Address: [facility] [address] , [place] [address]- [phone] When: Unknown Comments:f/u for [facility] teaching [facility] [place] 09-29-2023 History of Present illness Narrative [...] from the original note were not included. Marcle Wahl is a 58 y.o. male presents with chief complaint of No chief complaint on file. HPI: Sleep apnea: wears PAP 8 hours Saw vascular: will monitor aneurysm Incidental findings: nodule , is going to see a loss prevention agent, hx of 50 pack year smoking, quit [...] spray 2 sprays, Each Nostril, Daily HYDROcodone-acetaminophen ([place]) 5-325 MG tablet 1 tablet, Oral, Every [...] 09/28/2023 Spinal stenosis, lumbar 09/28/2023 Tortuous aorta ([facility]) 09/28/2023 Ventral hernia 09/28/2023 3.9) [...] Addressed This Visit SCOT (generalized anxiety disorder) ([facility]) SALVATORE on CPAP Wears PAP at least 8 hours daily Mild persistent asthma with exacerbation ([facility]) Does not use rescue inhaler, sxs are controlled with singulair Benign hypertension ([facility]/HCC) - Primary No changes in dose of meds at this time Relevant Orders CBC and differential Microalbumin / creatinine, urine ratio Urinalysis with reflex microscopic (clean catch) Aortic aneurysm without rupture, unspecified portion of aorta ([facility]/HCC) Saw vascular people will continue to have this monitored High cholesterol ([facility]/HCC) Relevant Orders Lipid panel Screening for prostate cancer Relevant Orders PSA Pre-diabetes Check labs Relevant Orders Comprehensive metabolic panel Hemoglobin A1c Microalbumin / creatinine, urine ratio Urinalysis with reflex microscopic (clean catch) Lung nodule Being referred to pulmonogist Other Visit Diagnoses Morbid (severe) obesity due to excess calories (E66.01) Body mass index [BMI] 45.0-49.9, adult (Z68.42) documented in this encounter [facility] 05-04-2023 Miscellaneous Notes I have called and discussed with Marcel Brown recommendations which are there is no indication for surgery. 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 Also, blood pressure control is essential to keep aorta size stable. He verbalized understanding Oksana Spear RN diagnosis: aorta 4.1 cm on echo history: obesity, chronic back pain, anxiety, asthma, HTN, SALVATORE, Patient has been communicating via Dr. Shaikh Liang's office. Roselia nurse [phone] Diagnosis: aneurysm All records are in Epic Left a VM. Need: explain the process and let patient know that I am in contact with his Dr's office trying to get all his records. Currently waiting for CT images. documented in this encounter [facility] 03-28-2023 Hospital Discharge instructions Patient Education 03/28/2023 [...] Follow these instructions at home: Medicines Take wsrn-see-oqooaci and prescription medicines only as told by [...] provider. Document Revised: 11/04/2021 Document Reviewed: 11/04/2021 [employer] Patient Education 2022 Info. Follow Up Care 03/07/2023 10:38:37 With:NEVAEH HARKINS, Javier Jones, URL Address: [facility] [address] [place] [address]- [phone] When:Within 6 Month(s) Comments:T level [facility] 03-07-2023 Hospital Discharge instructions Patient Education [...] provider gives to you. In general: Take utms-asu-ayyuzyv and prescription medicines only as told by [...] provider. Document Revised: 02/02/2021 Document Reviewed: 02/02/2021 [employer] Patient Education 2022 Info. Follow Up Care 02/18/2023 09:13:02 With:NEVAEH HARKINS, Javier Jones, URL Address: [facility] [address], [place] [address]- [phone] When: Unknown Comments:CT scan and PSA [facility] 01-13-2023 Note PROCEDURE: XR HIP RT 2 3V WO PELVIS HISTORY: Pain in right hip joint ; no known injury COMPARISON: None. FINDINGS: BONES:No fracture, acute abnormality, or significant arthropathy. SOFT TISSUES:No visible soft tissue swelling. EFFUSION:None visible. OTHER: Negative. IMPRESSION: 1. No acute bone abnormality or significant degenerative joint disease. Electronically authenticated by: LISSETTE MCCAIN Date: 2023-01-13 10:45 [facility] 01-03-2023 Evaluation note Encounter Date Diagnosis Assessment [...] with sciatica home care material was printed [employer] Other 12-07-2022 NotePROCEDURE: XR SHOULDER RT 2V [...] Electronically authenticated by: LISSETTE MCCAIN Date: 2022-07-28 13:47[facility]11-15-2022 NotePROCEDURE: XR ANKLE LT MIN 3 [...] Electronically authenticated by: DARIN CHAPA Date: 2022-07-06 07:39[facility]11-15-2022 NotePROCEDURE: XR ANKLE LT MIN 3 [...] Electronically authenticated by: DARIN CHAPA Date: 2022-07-06 07:39[facility]01-07-2015 Miscellaneous Notes* Telephone Encounter - Coco [...] may contact Or[place] at their home # [phone] with questions/concerns, OK to leave a message [...] on 09/13/14. Patient may be reached at [phone] to advise, it is ok to leave a message if no answer. [facility] Future Appointments Appointment Date:03/28/2023 11:15:00 AM Scheduled Provider:Javier DOWNS MD Location:[facility] Appointment Type:URO Office Visit Diagnostic Tests Pending * PSA Total 03/07/23 [facility] evaluation + Plan note Future Appointments Appointment Date:09/26/2023 09:15:00 AM Scheduled Provider:Javier DOWNS MD Location:[facility] Appointment Type:URO Office Visit Diagnostic Tests Pending * Testosterone Level Total 03/28/23 [facility] evaluation + Plan note Future Appointments Appointment Date:01/23/2024 11:30:00 AM Scheduled Provider:Javier DOWNS MD Location:[facility] Appointment Type:URO Office Visit [facility] evaluation note* Diagnosis Benign hypertension (CMS/HCC)- [...] asthma, with exacerbation SCOT (generalized anxiety disorder) (CMS/HCC) Generalized anxiety disorder Ventral hernia without obstruction or gangrene Unspecified ventral hernia without mention of obstruction or gangrene [facility] [...] asthma, with exacerbation SCOT (generalized anxiety disorder) ([facility]/HCC) Generalized anxiety disorder Ventral hernia without obstruction or gangrene Unspecified ventral hernia without mention of obstruction or gangrene Mild intermittent asthma with (acute) exacerbation ([facility]) [facility] Diagnosis Essential (primary) hypertension (CMS/HCC) Unspecified essential hypertension [facility]* Diagnosis Other intervertebral disc degeneration, lumbar region [facility]* Diagnosis SCOT (generalized anxiety disorder) ([facility]/HCC) Generalized anxiety disorder Other intervertebral disc degeneration, lumbar region [facility]* Diagnosis Benign hypertension ([facility]/HCC)- Primary Essential hypertension, benign Morbid (severe) obesity due to excess calories (E66.01) Body mass index [BMI] 45.0-49.9, adult (Z68.42) Aortic aneurysm without rupture, unspecified portion of aorta ([facility]/HCC) High cholesterol ([facility]) Pure hypercholesterolemia SCOT (generalized anxiety disorder) ([facility]) Generalized anxiety disorder Screening for prostate cancer Special screening for malignant neoplasm of prostate Pre-diabetes Other abnormal glucose SALVATORE on CPAP Mild persistent asthma with exacerbation (CMS/HCC) Unspecified asthma, with exacerbation Lung nodule Other diseases of lung, not elsewhere classified Lumbosacral spondylosis without myelopathy- Primary Benign hypertension ([facility]/HCC)- Primary Essential hypertension, benign Morbid obesity with [...] asthma, with exacerbation SCOT (generalized anxiety disorder) ([facility]/HCC) Generalized anxiety disorder Ventral hernia without obstruction or gangrene Unspecified ventral hernia without mention of obstruction or gangrene Benign hypertension (CMS/HCC)- Primary Essential hypertension, benign Morbid (severe) obesity due to excess calories (CMS/HCC) Body mass index (BMI) 40.0-44.9, adult (CMS/HCC) Essential (primary) hypertension (CMS/HCC) Unspecified essential hypertension Upper respiratory tract infection, unspecified type Lumbosacral spondylosis without myelopathy [facility]* Diagnosis Benign hypertension (CMS/HCC)- Primary [...] asthma, with exacerbation SCOT (generalized anxiety disorder) (CMS/HCC) Generalized anxiety disorder Ventral hernia without obstruction or gangrene Unspecified ventral hernia without mention of obstruction or gangrene Upper respiratory tract infection, unspecified type- Primary Morbid (severe) obesity due to excess calories (CMS/HCC) Body mass index (BMI) 40.0-44.9, adult (CMS/HCC) Benign hypertension (CMS/HCC) Essential hypertension, benign Essential (primary) hypertension (CMS/HCC) Unspecified essential hypertension Lumbosacral spondylosis without myelopathy COPD with exacerbation (CMS/HCC)- Primary Body mass index (BMI) 40.0-44.9, adult (CMS/HCC) Morbid (severe) obesity due to excess calories (CMS/HCC) Lumbosacral spondylosis without myelopathy COPD mixed type (CMS/HCC) Wheezing [facility] [...] asthma, with exacerbation SCOT (generalized anxiety disorder) (CMS/HCC) Generalized anxiety disorder Ventral hernia without obstruction or gangrene Unspecified ventral hernia without mention of obstruction or gangrene Upper respiratory tract infection, unspecified type- Primary Morbid (severe) obesity due to excess calories (CMS/HCC) Body mass index (BMI) 40.0-44.9, adult (CMS/HCC) Benign hypertension (CMS/HCC) Essential hypertension, benign Essential (primary) hypertension (CMS/HCC) Unspecified essential hypertension Lumbosacral spondylosis without myelopathy COPD with exacerbation (CMS/HCC)- Primary Body mass index (BMI) 40.0-44.9, adult (CMS/HCC) Morbid (severe) obesity due to excess calories (CMS/HCC) Lumbosacral spondylosis without myelopathy COPD mixed type (CMS/HCC) Wheezing COVID- Primary COPD with exacerbation (CMS/HCC) Morbid (severe) obesity due to excess calories (CMS/HCC) Body mass index (BMI) 40.0-44.9, adult (CMS/HCC) COPD mixed type (CMS/HCC) [facility] [...] Hospitalization History see above Hospitalization History diverticulitis [employer] Other Hospital course Narrative No data available for this section [facility] Hospital Discharge instructions No data available for this section [facility] progress note No data available for this section [facility] Discharge Instructions * Attachments The following attachments cannot be sent through Care Everywhere. 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 Advance Directives and Living Will Power of Marine [employer] Summary Purpose Family History No Family History [...] Pt states he was just d/c from [facility] and they told him basically that I was fat and lazy Reason Onset Date Comments Surgical Followup 08/28/2014 Reason Comments Referral Information Reason Comments Med Refill Reason Comments Nasal Congestion Reason Comments Letter for School/Work Reason Comments COPD (unrecognized sect ion and content) No Status Records FoundNo Status Records FoundNo Status Records FoundNo Status Records FoundNo Status Records FoundNo Status Records Found INFORMATION SOURCE (unrecogn ized section and content) DATE CREATED AUTHOR 03/11/2020 [facility] DATE CREATED AUTHOR AUTHOR'S ORGANIZ ATION 01/28/2023 [facility] DATE CREATED AUTHOR AUTHOR'S ORGANIZ ATION 05/08/2023 [facility] DATE CREATED AUTHOR AUTHOR'S ORGANIZ ATION 09/07/2024 [facility] DATE CREATED AUTHOR AUTHOR'S ORGANIZ ATION 09/21/2024 [facility] DATE CREATED AUTHOR AUTHOR'S ORGANIZ ATION 09/27/2024 [facility] EPIC Source Comments (unrecognize d section and content) In the event this informatio n is protected by the Federal Confidentiality of Alcohol and Drug Abuse Patient Records regulations: The Federal rules restrict any use of the information to criminally investigate or prosecute any alcohol or drug abuse patient.[facility] the event this information is protected by the Federal Confidentiality of Alcohol and Drug Abuse Patient Records regulations: The Federal rules restrict any use of the information to criminally investigate or prosecute any alcohol or drug abuse patient.[facility] Patient Care team informatio n (unrecognized section and content) Bruise Trimmer Relationship Specialty Start Date End Date Rom Faye Jr. PCP - General 02/23/05 Rafael Brown MD [address] [place] [address] Surgeon Cardiac Surg 05/04/23 05/05/23 Bruise Trimmer Relationship Specialty Start Date End Date Parth Hdz MD PCP - General Family Medicine 02/17/23 Bruise Trimmer Relationship Specialty Start Date End Date Parth Hdz MD PCP - General Family Medicine 02/17/23 Bruise Trimmer Relationship Specialty Start Date End Date Parth Hdz MD [address] [place] [phone] PCP - General Family Medicine 02/17/23 Bruise Trimmer Relationship Specialty Start Date End Date Parth Hdz MD [address] [place] [phone] PCP - General Family Medicine 02/17/23 Bruise Trimmer Relationship Specialty Start Date End Date Parth Hdz MD [address] [place] [phone] PCP - General Family Medicine 02/17/23 Bruise Trimmer Relationship Specialty Start Date End Date Parth Hdz MD [address] [place] [phone] PCP - General Family Medicine 02/17/23 Bruise Trimmer Relationship Specialty Start Date End Date Parth Hdz MD [address] [place] [address] PCP - General Family Medicine 02/17/23 Bruise Trimmer Relationship Specialty Start Date End Date Parth Hdz MD [address] [place] [address] PCP - General Family Medicine 02/17/23 Bruise Trimmer Relationship Specialty Start Date End Date Parth Hdz MD [address] [place] [address] PCP - General Family Medicine 02/17/23 Bruise Trimmer Relationship Specialty Start Date End Date Parth Hdz MD [address] [place] [phone] PCP - General Family Medicine 02/17/23 Bruise Trimmer Relationship Specialty Start Date End Date Parth Hdz MD [address] [place] [address] PCP - General Family Medicine 02/17/23 Bruise Trimmer Relationship Specialty Start Date End Date Parth Hdz MD [address] [place] [address] PCP - General Family Medicine 02/17/23 Bruise Trimmer Relationship Specialty Start Date End Date Parth Hdz MD [address] [place] [address] PCP - General Family Medicine 02/17/23 Bruise Trimmer Relationship Specialty Start Date End Date Parth Hdz MD [address] [place] [phone] PCP - General Family Medicine 02/17/23 Bruise Trimmer Relationship Specialty Start Date End Date Parth Hdz MD [address] [place] [phone] PCP - General Family Medicine 02/17/23 Bruise Trimmer Relationship Specialty Start Date End Date Parth Hdz MD [address] [place] [address] PCP - General Family Medicine 02/17/23 FOR [...] BE BASED ON THE PRIMARY CLINICAL RECORDS. [facility]. provides no warranty or guarantee of the accuracy or completeness of information in this document.
[2024-10-01 13:07] LABS: Testosterone >1500 ng/dL (264-916)
== END 2024-09-29 11:03 | disposition home or self-care (01) ==
LOC: LAB 11:04
PROVIDERS: PCP Nurse Practitioner; Visit Provider Nurse Practitioner Family
DX: E29.1 Testicular hypofunction (principal)
CPT/HCPCS: 36415; 84403

== ENCOUNTER 2024-11-16 15:42 | Outpatient (OUT) | payer BC, SELFPAY ==
[2024-11-16 16:00] LABS: Basophils Absolute Auto 0.1 10^3/uL (0.0-0.1); Basophils Percent Auto 1.1 % (0.2-2.0); Eosinophils Absolute Auto 0.1 10^3/uL (0.0-0.7); Eosinophils Percent Auto 1.8 % (0.9-7.0); Hematocrit 40.9 % (42.0-54.0); Hemoglobin 14.1 g/dL (14.0-18.0); Immature Granulocytes Abs Auto 0.02 10^3/uL (0.00-0.03); Immature Granulocytes Pct Auto 0.3 % (0.0-0.5); Lymphocytes Absolute Auto 1.7 10^3/uL (1.2-3.8); Lymphocytes Percent Auto 24.2 % (20.5-60.0); Mean Corpuscular HGB Conc 34.5 g/dL (29.9-35.2); Mean Corpuscular Volume 95.8 fL (80.0-94.0); Monocytes Absolute Auto 0.6 10^3/uL (0.3-0.8); Monocytes Percent Auto 8.4 % (1.7-12.0); Neutrophils Absolute Auto 4.6 10^3/uL (1.4-6.5); Neutrophils Percent Auto 64.2 % (43.0-75.0); Platelet Count 308 10^3/uL (150-450); Red Blood Count 4.27 10^6/uL (4.70-6.10); Red Cell Distribution Width 12.2 % (11.0-15.0); White Blood Count 7.1 10^3/uL (4.0-11.0)
[2024-11-16 16:04] LABS: Erythrocyte Sedimentation Rate 2 mm/hr (<=20)
--- OUTSIDE RECORDS SUMMARY | 2024-11-16 16:13 | XMS_ITS | CCD ---
Author Organization [facility] Informat ion Partnership [facility] Care Team Providers Care Lpn Rn Name Role Phone Es Bartholomew Primary Care Provider JOSHUA PEREZ Attending Unavailable ES BARTHOLOMEW Primary Care Unavailable Rom Faye Jr. Primary Care Provider Unava Carrie Araujo Unavailable AICHHOLZ, HORSE BREAKER SHAVONNE Consulting Unavailable AICHHOLZ, HORSE BREAKER SHAVONNE Primary Care Unavailable AICHHOLZ, HORSE BREAKER SHAVONNE Admitting Unavailable AICHHOLZ, HORSE BREAKER SHAVONNE Attending Unavailable AICHHOLZ, HORSE BREAKER SHAVNONE Primary Care Unavailable MISC, DR MARIE Consulting Unavailable MISC, DR MARIE Admitting Unavailable MISC, DR MARIE Attending Unavailable AICHHOLZ, HORSE BREAKER SHAVONNE Referring Unavailable AICHHOLZ, HORSE BREAKER SHAVONNE Primary Care Unavailable MISC, DR MARIE Consulting Unavailable MISC, DR MARIE Admitting Unavailable MISC, DR MARIE Attending Unavailable AICHHOLZ, HORSE BREAKER SHAVONNE Attending Unavailable AICHHOLZ, HORSE BREAKER SHAVONNE Consulting Unavailable AICHHOLZ, HORSE BREAKER SHAVONNE Primary Care Unavailable AICHHOLZ, HORSE BREAKER SHAVONNE Admitting Unavailable DR LISSETTE MCCAIN Consulting Unavailable MISC, DR MARIE Attending Unavailable MISC, DR MARIE Consulting Unavailable MISC, DR MARIE Admitting Unavailable AICHHOLZ, HORSE BREAKER SHAVONNE Primary Care Unavailable DANIELE MOLINA Consulting UnavailROMA Modi Admitting Unavailable ROMA CHAHAL Attending Unavailable AICHHOLZ, HORSE BREAKER SHAVONNE Primary Care Unavailable AICHHOLZ, HORSE BREAKER SHAVONNE Primary Care Unavailable DR LISSETTE MCCAIN Consulting Unavailable FAWENRIQUE, FLORES H Admitting Unavailable NATHALY, FLORES H Attending Unavailable NATHALY, FLORES H Consulting Unavailable DR DARIN CHAPA V Consulting Unavailable AICHHOLZ, HORSE BREAKER SHAVONNE Primary Care Unavailable AICHHOLZ, HORSE BREAKER SHAVONNE Admitting Unavailable AICHHOLZ, HORSE BREAKER SHAVONNE Attending Unavailable AICHHOLZ, HORSE BREAKER SHAVONNE Consulting Unavailable AICSHAVONNE QUINTANA Primary Care Physician Rom Faye Jr. Primary Care Provider Unava ilable Kevin HARKINS, Rafael Unavailable Wilder HARKINS, Parth Primary Care Provider [phone] Wilder HARKINS, Parth Primary Care Provider Aichholz BRINE PROCESS OPERATOR-HORSE BREAKER, Shavonne Quesada Primary Care Unava ilable Claritza BRINE PROCESS OPERATOR-HORSE BREAKER, Manuel Mcintosh Attending Unav ailable Aichholz BRINE PROCESS OPERATOR-HORSE BREAKER, Shavonne Quesada Primary Care Unava ilable Claritza BRINE PROCESS OPERATOR-HORSE BREAKER, Manuel Mcintosh Attending Unav ailable Aichholz FLUX PLANT OPERATOR, Shavonne Unavailable Unavailable Primary Care Provider Unavailabl Wendi Gorman Attending Unavailable Javier HERRING Attending Unavailable Orzech, Wendi Acuna Attending Unavailable Orzech, Wendi X Attending Unavailable Javier HERRING Attending Unavailable Wendi Watts Attending Unavailable AICHHOLSHAVONNE Isabel Attending Unavailable AICHHOLMaame, SHAVONNE Attending Unavailable AICHHOLZ, SHAVONNE Attending Unavailable AICHHOLZ, SHAVONNE Attending Unavailable SHAIKH LIANG Attending Unavailable AICHHOLZ, SHAVONNE Attending Unavailable AICHHOLZ, SHAVONNE Attending Unavailable AICHHOLMaame, SHAVONNE Attending Unavailable Aichholz BRINE PROCESS OPERATOR-HORSE BREAKER, Shavonne Ryan Primary Care Provider SATYA IQBAL Attending Unavailable SHAVONNE CHOWDARY Referring Unavailable PARISH WREN Admitting Unavailable PARISH WREN Attending Unavailable SHAVONNE CHOWDARY Referring Unavailable SHAVONNE CHOWDARY Primary Care Unavailable PARISH WREN Attending Unavailable PARISH WREN Referring Unavailable SHAVONNE CHOWDARY Primary Care Unavailable SATYA IQBAL Attending Unavailable PARISH WREN Referring Unavailable SHAVONNE CHOWDARY Primary Care Unavailable Allergies Allergy Classification Reported Allergen(s) Allergy Type Date of Onset Reaction(s) Facility Opioid Agonists (2 sources) Meperidine Drug Allergy 10-20-20 14 Mental Status Change [facility] Penicillins (antibiotic) (1 source) Penicillins Drug Allergy 03-03-20 05 [facility] Work Phone: (20 sources) Meperidine; Translations: [meperidine] Drug Allergy 05-01-20 18 Hallucinations (finding), Hallucinations [place], [place] (20 sources) Morphine; Translations: [morphine] Drug Allergy 06-10-20 14 Hallucinations (finding), Mental Status Change [place], [place] (4 sources) Penicillins; Translations: [penicillins] Propensity to adverse reactions to drug 05-01-20 18 Shortness Of Breath [place], [place] (9 sources) Penicillin; Translations: [penicillin] Drug Allergy Nausea and vomiting (disorder) [facility] (20 sources) Penicillin G Drug Allergy 08-24-19 24 GI intolerance [place] Other (3 sources) Meperidine; Translations: [Demerol] Drug Allergy 05-17-20 15 [facility] (1 source) Morphine Drug Allergy 11-20-19 13 [facility] (1 source) Penicillins Drug allergy (disorder) 11-20-19 13 [facility] (1 source) Meperidine Drug Allergy 06-10-20 14 Mental Status Change [facility] (2 sources) Penicillins Propensity to adverse reactions 03-03-20 05 Shortness Of Breath [facility] Work Phone: (20 sources) Meperidine Drug Allergy 08-24-19 24 [facility] (1 source) Morphine; Translations: [Morphine Sulfate] Drug Allergy [facility] Repository (3 sources) Morphine; Translations: [MORPHINE (PF)] Drug Allergy 05-01-20 18 [facility] Medications Current Medications Medication Drug Class(es) Dates Sig (Normalized) Sig (Original) acetaminophen 325 mg / HYDROcodone bitartrate 5 mg oral tablet (5 sources) Opioid Agonist Start: 01-24-2023 End: 09-29-2023 take 1 tablet by mouth once HYDROcodone-acetami nophen ([place]) 5-325 MG tablet Take 1 tablet by [...] as needed. albuterol 0.83 mg/ml inhalation solution (20 sources) beta2-Adrenergic Agonist Start: 09-13-2024 End: 09-28-2024 albuterol (2.5 MG/3ML) 0.083% nebulizer solution Indications: COPD mixed type (CMS/HCC) Take 3 mL (2.5 mg) by nebulization every 6 (six) hours if needed for wheezing for up to 15 days 180 mL 1 09/13/2024 Active Start: 06-26-2024 End: 07-26-2024 take 2 puff(s) by inhalation every six hours for wheezing albuterol HFA 90 mcg/act inhaler Indications: Mild persistent asthma with exacerbation (CMS/HCC) Inhale 2 puffs every 6 (six) hours if needed for wheezing or shortness of breath 18 g 06/26/2024 Active ProAir HFA Not-T aking amitriptyline hydrochloride 50 mg oral tablet (20 sources) Tricyclic Antidepressant Start: 04-30-2018 End: 12-04-2024 take 1 tablet by mouth at bedtime amitriptyline (Elavil) 50 MG tablet Indications: Lumbosacral spondylosis without myelopathy Take 1 tablet (50 mg) by mouth at bedtime 90 tablet 09/05/2024 12/04/2024 Active Amitriptyline HC l Active take 1 tablet [...] or chew. 21 capsule 09/05/2024 09/12/2024 Active busPIRone hydrochloride 10 mg oral tablet [...] before bedtime. 60 tablet 2 08/18/2023 Active cetirizine hydrochloride 10 mg oral tablet (2 sources) Histamine-1 Receptor Antagonist take 1 tablet by mouth in the morning cetirizine (ZyrTEC) 10 mg tablet Take 1 tablet (10 mg total) by mouth in the morning. Active cyclobenzaprine hydrochloride 10 mg oral tablet (20 sources) Muscle Relaxant Start: 023 take 1 tablet by mouth three times daily as needed for muscle spasms cyclobenzaprine 10 mg Tab 10 mg = 1 tab(s), Oral, TID, PRN for spasm, # 30 tab(s), Refills(s) 0 Start Date: 03/07/23 Status: Ordered Start: 03-28-2018 take 1 tablet by ashok th twice daily as needed cyclobenzaprine (FLEXERIL) 10 mg tablet Take 1 tablet (10 mg total) by mouth 2 (two) times a day as needed. 5 03/28/2018 Active Cyclobenzaprine HCl at bedtime Active doxycycline [...] each nostril Daily 16 g 5 09/11/2024 Active Start: 03-28-2024 End: 04-27-2024 take 2 [...] Start: 03-07-2023 fluticasone Na fortino 0.05 mg/inh [place] Refill(s) 0 Start Date: 03/07/23 Status: Ordered Start: 04-27-2018 take 2 spray(s) nasa l route in the morning fluticasone (FLONASE) 50 mcg/actuation nasal spray Administer 2 sprays into each nostril in the morning. 5 04/27/2018 Active Fluticasone Prop ionate 50 MCG/ACT Nasal for [...] Refill(s) 0 Start Date: 03/07/23 Status: Ordered Start: 03-10-2018 take 10-12.5 mg by mouth once in the morning lisinopril-hydroCHLOROthiazide (PRINZIDE,ZESTORETIC) 10-12.5 mg per tablet Take 1 tablet by mouth in the morning. 1 03/10/2018 Active hydroxychloroquine sulfate 200 mg oral tablet (20 sources) Antimalarial, Antirheumatic Agent Start: 04-10-2024 take [...] Daily, # 30 tab(s), Refills(s) 11, Pharmacy: [facility][id number], 178, cm, 12/05/23 13:51:00 EDT, Height/Length Dosing, 143, kg, 12/05/23 13:51:00 EDT, Weight Dosing Start Date: 12/05/23 Status: Ordered montelukast 10 mg oral tablet (20 sources) Leukotriene Receptor Antagonist Start: 04-30-2018 End: 10-14-2024 take 1 tablet by mouth at bedtime montelukast (Singulair) 10 MG tablet Indications: Mild intermittent asthma with (acute) exacerbation (CMS/HCC) Take 1 tablet (10 mg) by mouth at bedtime 90 tablet 1 07/16/2024 Active Montelukast Sodi um Active nabumetone 500 mg oral tablet (20 sources) Nonsteroidal Anti-inflammatory Drug Start: 12-05-2023 take 2 tablets by mouth in the morning nabumetone (Relafen) 500 MG tablet Take 1,000 mg by mouth in the morning and 1,000 mg before bedtime. 12/05/2023 Active Start: 09-02-2022 take 1 tablet by ashok th in the morning, then take 1 tablet by mouth at bedtime nabumetone (RELAFEN) 750 mg tablet Take 1 tablet (750 mg total) by mouth in the morning and 1 tablet (750 mg total) before bedtime. 09/02/2022 Active OTC Prostate Supplement (5 sources) Start: 12-05-2023 OTC Prostate S upplement OTC Prostate Supplement Start Date: 12/05/23 Status: Ordered predniSONE 20 mg oral tablet (14 sources) Start: 10-08-2024 predniSONE 20 mg Tab Refills(s) 0 Start Date: 10/08/24 Status: Ordered Start: 10-01-2024 End: 10-06-2024 take 1 tablet by mouth in the morning predniSONE (Deltasone) 20 MG tablet Indications: Lumbosacral spondylosis without myelopathy Take 1 tablet (20 mg) by mouth in the morning and 1 tablet (20 mg) in the evening. Take before meals. Do all this for 5 days. Take with food. 10 tablet 10/01/2024 10/06/2024 Active Start: 09-05-2024 End: 09-10-2024 take 1 tablet [...] December, Active pregabalin 50 mg oral capsule (19 sources) Start: 04-27-2024 End: 06-26-2024 take 1 [...] 0 Start Date: 03/07/23 Status: Ordered Start: 02-01-2023 take 1 capsule by mo uth once daily pregabalin (LYRICA) 25 mg capsule Take 1 capsule (25 mg total) by mouth nightly. 02/01/2023 Active sildenafil 50 mg oral tablet (7 sources) Phosphodiesterase 5 Inhibitor Start: 08-25-2022 End: 09-29-2023 sildenafiL (VIAGRA) 50 mg tablet TAKE 1 TABLET BY MOUTH prior to intercourse 08/25/2022 Active tadalafil 5 mg oral tablet (20 sources) Phosphodiesterase 5 Inhibitor Start: 06-26-2024 take 1 tablet by mouth once daily tadalafil (Cialis) 5 MG tablet Take 5 mg by mouth Daily 08/22/2024 Active Start: 02-21-2024 take 1 tablet by [...] period, # 30 tab(s), Refills(s) 3, Pharmacy: [facility] #[id number], 178, cm, 02/21/24 9:33:00 EDT, Height/Length [...] 60 actuat testosterone 20.25 mg/actuat topical gel (20 sources) Androgen Start: 05-27-2024 Testosterone 1 .62 % gel apply 2 (TWO) pumps topically EVERY MORNING 05/27/2024 Active Start: 04-19-2024 AndroGel Pump 20.25 mg/1.25 g (1.62%) transdermal gel = 2 pump, Topical, qAM, # 75 gram, Refills(s) 5, Pharmacy: [facility] #[id number], 178, cm, 02/21/24 9:33:00 EDT, Height/Length Dosing, 136.4, kg, 02/21/24 9:33:00 EDT, Weight Dosing Start Date: 04/19/24 Status: Ordered Completed/Discontinued Medications Medication Drug Class(es) Dates Sig (Normalized) Sig (Original) 120 actuat budesonide 0.16 mg/actuat / formoterol fumarate 0.0048 mg/actuat / glycopyrrolate 0.009 mg/actuat metered dose inhaler (9 sources) Corticosteroid, beta2-Adrenergic Agonist Start: 09-13-2024 End: 10-13-2024 take 2 puff(s) by mouth in the morning Budeson-Glycopyr rol-Formoterol (Breztri Aerosphere) 160-9-4.8 MCG/ACT aerosol Indications: COPD mixed type (CMS/HCC) Inhale 2 puffs in the morning and 2 puffs before bedtime. Rinse mouth after use. 10.7 g 2 09/13/2024 10/01/2024 Discontinued (Therapy completed) CPAP (2 sources) CPAP USE WHEN SLEEPING [...] 06-29-2022 Chronic Genitourinary symptoms and ill-defined conditions (10 sources) Urgent desire to urinate; Translations: [Urgency [...] Chronic Other diseases of kidney and ureters (6 sources) Acquired renal cyst without neoplastic change; Translations: [Cyst of kidney, acquired] Onset: 03-07-2023 Episodic Other diseases of kidney and ureters (7 sources) Complex renal cyst 03-07-2023 Episodic Other endocrine disorders (4 sources) Testicular hypofunction; Translations: [Testicular hypofunction] Onset: 03-28-2023 Chronic Other endocrine disorders (4 sources) Male hypogonadism 03-28-2023 Chronic Other lower respiratory disease (1 source) Dyspnea; Translations: [Dyspnea and respiratory abnormalities] Episodic Other lower respiratory disease (18 sources) Wheezing; Translations: [Wheezing] Onset: 09-13-2024 09-13-2024 Episodic Other male genital disorders (20 sources) Male erectile dysfunction, unspecified; Translations: [Erectile [...] nutritional; endocrine; and metabolic disorders (20 sources) Obesity caused by energy imbalance; Translations: [Morbid (severe) obesity due to excess calories] Onset: 09-28-2023 09-29-2023 Chronic Other upper respiratory disease (20 sources) Allergic rhinitis; Translations: [Other allergic rhinitis] Onset: 09-28-2023 09-28-2023 Chronic Residual codes; unclassified (20 sources) Obstructive sleep apnea syndrome; Translations: [Obstructive sleep apnea (adult) (pediatric)] Onset: 09-28-2023 09-28-2023 Chronic Residual codes; unclassified (7 sources) Chronic back pain 03-07-2023 Episodic Residual codes; unclassified (7 sources) Sleep disorder 03-07-2023 Episodic Spondylosis; intervertebral disc disorders; other back problems (20 sources) Lumbosacral spondylosis without myelopathy; Translations: [Spondylosis without myelopathy or radiculopathy, lumbosacral region] Onset: 05-01-2018 09-28-2023 Chronic Sprains and strains (1 source) Strain of muscle, fascia and tendon of lower back, initial encounter Episodic Unclassified (3 sources) Patient encounter status 02-21-2024 Viral infection (15 sources) Disease caused by 2019-nCoV; Translations: [COVID-19] [...] Episodic Immunizations and screening for infectious disease (20 sources) Needs influenza immunization; Translations: [Encounter for immunization] Onset: 06-26-2024 06-26-2024 Episodic Joint disorders and dislocations; trauma-related (2 sources) Tear of medial meniscus of knee; Translations: [Other tear of medial meniscus, current injury, unspecified knee, initial encounter] Onset: 07-15-2014 07-15-2014 Episodic Other aftercare (1 source) Other exterminator helper termite (current) drug therapy; Translations: [OTH GROUP HOME CURRENT DRUG THERAPY] Onset: 09-08-2022 Episodic Other [...] 09-28-2023 09-28-2023 Episodic Other connective tissue disease (20 sources) Pain of bilateral hands; Translations: [Pain [...] Onset: 07-04-2022 09-29-2023 Episodic Other upper respiratory infections (20 sources) Upper respiratory infection; Translations: [Acute upper respiratory infection, unspecified] Onset: 09-05-2024 Resolved: 11-15-2024 09-05-2024 Episodic Residual codes; unclassified (20 sources) Insomnia; Translations: [Insomnia, unspecified] Onset: 09-29-2023 09-29-2023 Episodic Spondylosis; intervertebral disc disorders; other back problems (20 sources) Neurogenic claudication; Translations: [Spinal stenosis, lumbar region with neurogenic claudication] Onset: 06-12-2014 06-12-2014 Episodic Results Test Name Value Interpretation Reference Range Facility ALL CBC WITH AUTO DIFFon BASOPHILS ABSOLUTE AUTO 0.1 [facility] Basophils/100 WBC (Bld) 1.1 % 0.2 - 2.0 % [facility] Eosinophils/100 WBC (Bld) 1.8 % 0.9 - 7.0 % [facility] Erythrocyte distribution width (RBC) [Ratio] 12.2 % 11.0 - 15.0 % [facility] Hematocrit (Bld) [Volume fraction] 40.9 % Low 42.0 - 54.0 % [facility] Hemoglobin (Bld) [Mass/Vol] 14.1 g/dL 14.0 - 18.0 g/dL [facility] IMMATURE GRANULOCYTES ABS AUTO 0.02 [facility] Immature granulocytes/100 WBC (Bld) 0.3 % 0.0 - 0.5 % [facility] Interpretation and review of laboratory results Abnormal [facility] LYMPHOCYTES ABSOLUTE AUTO 1.7 [facility] Lymphocytes/100 WBC (Bld) 24.2 % 20.5 - 60.0 % [facility] MCH (RBC) [Entitic mass] 33 pg 25.9 - 34.0 pg [facility] MCHC (RBC) [Mass/Vol] 34.5 g/dL 29.9 - 35.2 g/dL [facility] MCV (RBC) [Entitic vol] 95.8 fL High 80.0 - 94.0 fL [facility] MONOCYTES ABSOLUTE AUTO 0.6 [facility] Monocytes/100 WBC (Bld) 8.4 % 1.7 - 12.0 % [facility] NEUTROPHILS ABSOLUTE AUTO 4.6 [facility] Neutrophils/100 WBC (Bld) 64.2 % 43.0 - 75.0 % [facility] Platelet mean volume (Bld) [Entitic vol] 9 fL Low 9.5 - 13.5 fL [facility] TBH EO # 0.1 [facility] PLT 308 [facility] TB RBC 4.27 Low [facility]H WBC 7.1 [facility] Ambulatory Visit Summaryon 0 - Ambulatory Visit Summary Ambulatory Visit Summary MARCEL WAHL :1965 Visit Date:10/08/2024 Ambulatory Visit Instructions Your Diagnosis BPH associated with nocturia Urgency of urination Erectile disorder Prostate cancer screening Hypogonadism male Renal cyst Your Care Team Attending Physician - Mac BOURGEOIS, RENETTA, Wendi X Primary Care Physician - SHAVONNE CHOWDARY CNP This Is Your Medications List Contact prescribing physician if questions or concerns Non-Formulary Medication (OTC Prostate Supplement) amitriptyline (amitriptyline 50 mg Tab) busPIRone (busPIRone 10 mg Tab) cyclobenzaprine (cyclobenzaprine 10 mg Tab) fluticasone nasal (fluticasone Nasal 0.05 mg/inh [place]) hydrochlorothiazide-li sinopril (hydrochlorothiazide-l isinopril 12.5 mg-10 mg Tab) hydroxychloroquine (hydroxychloroquine 200 mg Tab) montelukast (montelukast 10 mg Tab) nabumetone (nabumetone 750 mg Tab) predniSONE (predniSONE 20 mg Tab) pregabalin (pregabalin 25 mg Cap) tadalafil (Cialis 5 mg oral tablet) tadalafil (tadalafil 10 mg Tab) testosterone (AndroGel Pump 20.25 mg/1.25 g (1.62%) transdermal gel) Procedures Performed C-RFA (cooled radiofrequency ablation) of nerve using ultrasonography guidance, Hydrocelectomy, Knee, Large bowel resection, Shoulder. Discharge Vitals Heart Rate (Peripheral) 80 Respiratory Rate 16 Blood Pressure 134/66 Height 178 cm Height 70 in Weight 143.6 kg Weight 316.583 lb BMI 45.32 What to do next Scheduled Follow-Up Appointments Nov. 2024 10:20 AM EDT With: RENETTA Watts APRN, Wendi Acuna Where: [facility] [address] [place] [address]- Medications What How Much When Why Instructions Unchanged amitriptyline (amitriptyline 50 mg Tab) Contact prescribing physician if questions or concerns Unchanged busPIRone (busPIRone 10 mg Tab) Contact prescribing physician if questions or concerns Unchanged cyclobenzaprine (cyclobenzaprine 10 mg Tab) 1 Tablets By Mouth 3 times a day as needed for for spasm Contact prescribing physician if questions or concerns Unchanged fluticasone nasal (fluticasone Nasal 0.05 mg/ inh [place]) Contact prescribing physician if questions or concerns Unchanged hydrochlorothiazide-li sinopril (hydrochlorothiazide-l isinopril 12.5 mg-10 mg Tab) Contact prescribing physician if questions or concerns Unchanged hydroxychloroquine (hydroxychloroquine 200 mg Tab) Contact prescribing physician if questions or concerns Unchanged montelukast (montelukast 10 mg Tab) Contact prescribing physician if questions or concerns Unchanged nabumetone (nabumetone 750 mg Tab) Contact prescribing physician if questions or concerns Unchanged Non-Formulary Medication (OTC Prostate Supplement) Contact prescribing physician if questions or concerns Unchanged predniSONE (predniSONE 20 mg Tab) Contact prescribing physician if questions or concerns Unchanged pregabalin (pregabalin 25 mg Cap) 2 Capsules Contact prescribing physician if questions or concerns Unchanged tadalafil (Cialis 5 mg oral tablet) 1 Tablets By Mouth Every day BPH associated with nocturia Contact prescribing physician if questions or concerns Unchanged tadalafil (tadalafil 10 mg Tab) 1 Tablets By Mouth As Directed as needed for for erectile dysfunction Erectile dysfunction take 1 tab by mouth at least 1 hr prior to sexual activity, DO NOT exceed 20 mg in 24 hr period Contact prescribing physician if questions or concerns Unchanged testosterone (AndroGel Pump 20.25 mg/ 1.25 g (1.62%) transdermal gel) 2 Pump Topical Once a day (in the morning) Contact prescribing physician if questions or concerns Allergies Demerol (Hallucinations) morphine (Hallucinations) penicillin (Nausea and vomiting) Problems Ongoing - Any problem that you are currently receiving treatment for. Aortic aneurysm BPH associated with nocturia Chronic back pain Complex renal cyst Erectile disorder Erectile dysfunction Hypertension Hypogonadism male Prostate cancer screening Renal cyst Sleep disorder Urgency of urination Patient Survey You may receive a survey via text or e-mail asking about your office visit. Please share your experience with us by completing your survey. We appreciate your feedback and thank you for choosing us for your care. Normal Stoner [facility] Urology Office/Clinic Noteon 10-08-2024 Urology Office/Clinic Note Urology Office/Clinic Note Chief Complaint 3 month follow up HPI Staff 59 year old male presents for 3 mo f/u with t-levels. Prev dx: BPH, Urgenecy of urination, ED, hypogonadism male, renal cyst, nocturia Tadalafil 10 mg PRN prev T level 04/16/24- 266 Current T level 09/29/24 - >1500 IPSS 10 Dysuria: denies pain or burning Incomplete bladder emptying: less than half the time Hematuria: denies visible blood Frequency: less than half the time Urgency: sometimes Nocturia: 2x Stream: denies hesitancy, weak stream sometimes Leaking: denies Post void dripping: denies Wearing pads/ Depends: denies Urge incontinence: denies Stress incontinence: denies Incontinence without Sensory Awareness: denies Abdominal pain: denies Flank pain: pre existing back pain, having ablation on back on 09/2824 Sexual complaints: denies History of Present Illness Tests reviewed: UA & Testosterone levels. I have reviewed the previous health record information and history for this patient from RENETTA Mauricio APRN. I have reviewed and verified the staff [...] HPI. Physical Exam Vitals & Measurements HR: 80(Peripheral) RR: 16 BP: 134/66 HT: 70 in HT: 178 cm WT: 143.6 kg WT: 316.583 lb BMI: 45.32 General Appearance: alert, no distress, well nourished, well developed male. Assessment/Plan 59 year old male presents for 3 mo f/u with t-levels. Prev dx: BPH, Urgenecy of urination, ED, hypogonadism male, renal cyst, nocturia Tadalafil 10 mg PRN prev T level 04/16/24- 266 1. BPH associated with nocturia (N40.1: Benign prostatic hyperplasia with lower urinary tract symptoms) IPSS 10 (18), moderate symptoms of BPH. UA today negative. No signs or infections. Reviewed UA. 2x/night. Started on tadalafil 5 mg QD at prior OV. Tolerating well w/o SEs. Does not wish to make any changes at this time -cont cialis daily 2. Urgency of urination (R39.15: Urgency of urination) PVR (cc) 02/21/24 - 142 Denies bothersome SEs at this time. Reports urgency being bothersome but states he drinks multiple cups of coffee throughout the day. Feels improved since starting cialis 5 mg QD. -Avoid bladder irritants. -Cont w tadalafil 3. Erectile disorder (N52.9: Male erectile dysfunction, unspecified) JEFFREY (15) - Not completed IO today Started Tadalafil 10mg at prior OV. At this time no bothersome SEs. Reports seeing improvements with erections. -cont tadalafil PRN - reminded not to exceed 20 mg daily between daily dosing and PRN dosing 4. Prostate cancer screening (Z12.5: Encounter for screening for malignant neoplasm of prostate) PSA: 03/10/2023-0.65 11/29/2022-1.48 Denies family history of prostate cancer. Will recheck PSA at next visit, morales given addition of TRT. -Sent PSA order with patient ([facility]) 5. Hypogonadism male (E29.1: Testicular hypofunction) Testosterone: 04/01/23 - 299 11/30/23 - 327 09/29/24 - >1500 [abnormal] Reviewed T levels. Started two pumps of the AndroGel qd. Would not typically expect such a significant rise in T level w/ topical application. Advised patient to decreased to one pump qd due to his levels being high. Sees improvement with energy level and erection. Will recheck levels due to levels being high. -Sent Testosterone & Hematocrit order w patient. Follow up 8 weeks w results or sooner if needed. Pt understands and agrees with plan. 6. Renal cyst (N28.1: Cyst of kidney, acquired) SUJIT 02/16/23 - slightly complex cyst in left kidney measuring 3.6 x 3.[address] AP w con 03/11/23 [facility] - re demonstrated LLP 4.0cm fluid density lesion consistent with a cyst, negative for cancer. Per CT scan, cyst is not complex. Simple cysts do not require monitoring. [1] Follow-up With When Contact Information RENETTA Watts APRN, Wendi Acuna, FAM, URL Additional Instructions: Follow up 8 weeks w results or sooner if needed Patient Education Hypogonadism, Male I, Malena Mora, personally scribed for RENETTA Mauricio APRN on 10/08/2024 11:12:14. . Documentation recorded by the jamee Mora accurately reflects the services(s) I performed and decisions made by me. Authenticated by Wendi Watts APRN, FNP-C on 10/08/2024 12:03:48. Problem List/Past Medical History Ongoing Aortic aneurysm BPH associated with nocturia Chronic back pain (more content not included)... Normal [facility] Comment on above: Result Comment: Elec tronically Signed By: RENETTA Watts APRN, Wendi Acuna\.br\Date and Time Signed: 10/08/24 12:04 EST\.br\Electronically Co-Signed By: Malena Mora\.br\Date and Time Co-Signed: 10/08/24 11:13 EST ALL TESTOSTERONEon Interpretation and review of laboratory results Abnormal [facility] Testosterone [Mass/Vol] ng/dL Abnormal 264 - 916 ng/dL [facility] Comment on above: Adult male reference interval is based on a population of healthy nonobese males (BMI <30) between 19 and 39 years old. Cody et.al. JCEM 2017,102;0766-7368. PMID: [id number]. Performed at: [address] [id number] Wire Fence Builder: Rodrick Guillen PhD, Phone: [phone] Specimen Comment: A duplicate report has been generated due to demographic Specimen Comment: updates. [facility] Healthcare Reminderson 09-04-2024 Reminders Reminders From: Harriet Adames To: EU - Administrative; Sent: 06/26/2024 13:05:04 EST Show up: 07/22/2024 13:04:00 EST Subject: Ambulatory Reminder Due Date/Time: 09/25/2024 13:04:00 EST Reminder/Recall Patient needs scheduled with AO for a 3 month F/U with testosterone levels, due back in September 2024 LVM Pt called to schedule. Scheduled 3 mos f/up with T-Level in [place] office on 10/08/2024 with AO. Laith [facility] ALL CBC WITH AUTO DIFFon BASOPHILS ABSOLUTE AUTO 0.1 [facility] Basophils/100 WBC (Bld) 0.7 % 0.2 - 2.0 % [facility] Eosinophils/100 WBC (Bld) 2.2 % 0.9 - 7.0 % [facility] Erythrocyte distribution width (RBC) [Ratio] 11.5 % 11.0 - 15.0 % [facility] Hematocrit (Bld) [Volume fraction] 41.7 % Low 42.0 - 54.0 % [facility] Hemoglobin (Bld) [Mass/Vol] 13.8 g/dL Low 14.0 - 18.0 g/dL [facility] IMMATURE GRANULOCYTES ABS AUTO 0.02 [facility] Immature granulocytes/100 WBC (Bld) 0.3 % 0.0 - 0.5 % [facility] Interpretation and review of laboratory results Abnormal [facility] LYMPHOCYTES ABSOLUTE AUTO 1.7 [facility] Lymphocytes/100 WBC (Bld) 25.4 % 20.5 - 60.0 % [facility] MCH (RBC) [Entitic mass] 32.5 pg 25.9 - 34.0 pg [facility] MCHC (RBC) [Mass/Vol] 33.1 g/dL 29.9 - 35.2 g/dL [facility] MCV (RBC) [Entitic vol] 98.3 fL High 80.0 - 94.0 fL [facility] MONOCYTES ABSOLUTE AUTO 0.5 [facility] Monocytes/100 WBC (Bld) 8.1 % 1.7 - 12.0 % [facility] NEUTROPHILS ABSOLUTE AUTO 4.2 [facility] Neutrophils/100 WBC (Bld) 63.3 % 43.0 - 75.0 % [facility] Platelet mean volume (Bld) [Entitic vol] 9 fL Low 9.5 - 13.5 fL [facility] EO # 0.2 [facility] PLT 287 [facility] TB RBC 4.24 Low [facility] TB WBC 6.7 [facility] ALL HGB HCTon 06-20-2024 Hematocrit (Bld) [Volume fraction] 42.8 % 42.0 - 54.0 % [facility] Hemoglobin (Bld) [Mass/Vol] 14.5 g/dL 14.0 - 18.0 g/dL [facility] ALL TESTOSTERONEon Testosterone [Mass/Vol] 266 ng/dL 264 - 916 ng/dL [facility] Comment on above: Adult male reference interval is based on a population of healthy nonobese males (BMI <30) between 19 and 39 years old. Cody, et.al. JCEM 2017,102;9847-7394. PMID: [id number]. Performed at: - [address] [id number] Wire Fence Builder: Rodrick Guillen PhD, Phone: [phone] [facility] Urology Office/Clinic Noteon 02-21-2024 Urology Office/Clinic Note [...] with voice recognition artificial intelligence software, specifically [employer] and or [employer]. Substitutions may have occurred due to the [...] Will order Local anesthesia. -Schedule cystoscopy Ordered: 52332 Measure Post Void residual urine and/or bladder [...] Urnls Dip Stick Auto w/o Microscopy POC 73510 2. Urgency of urination (R39.15: Urgency of [...] a lit (more content not included)... Normal [facility] Comment on above: Result Comment: Elec tronically Signed By: RENETTA Watts APRN, Wendi Acuna\.br\Date and Time Signed: 02/21/24 12:26 EDT Retail - Clinical Noteon Retail - Clinical Note [id number] [facility] Ambulatory Visit Summaryon 0 12-05-2023 Ambulatory [...] Tab) fluticasone nasal (fluticasone Nasal 0.05 mg/inh [place]) hydrochlorothiazide-li sinopril (hydrochlorothiazide-l isinopril 12.5 mg-10 mg [...] [facility] Center Lab Reportson 12-05-2023 Lab Reports [id number] [facility] Patient Educationon 12-05-19 24 Patient Education [...] these instructions at home: Medicines ? Take heno-htf-xjxtmaz and prescription medicines only as told by [...] include cig (more content not included)... Normal [facility] Urology Office/Clinic Noteon 12-05-2023 Urology Office/Clinic Note [...] and history for this patient from Dr. Herring. I have reviewed and verified the staff [...] monitoring. Follow-up With When Contact Information Javier HERRING MD, URL [facility] [address], [place] [address]- [phone] Additional Instructions: f/u for ICI teaching Patient Education Erectile Dysfunction I, Shira Limon, personally scribed for Dr. Herring on 12/05/2023 15:03:37. . Documentation recorded by the scribShira escobedo, accurately reflects the services(s) I performed and decisions made by me. Authenticated by Dr. Hrering on 12/05/2023 15:07:43. Problem List/Past Medical History [...] mg T (more content not included)... Normal [facility] Comment on above: Result Comment: Elec tronically Signed By: Javier HERRING MD\.br\Date and Time Signed: 12/05/23 15:07 EDT\.br\Electronically Co-Signed By: Shira Limon\.nikole\Date and Time Co-Signed: 12/05/23 15:04 EDT ADITHYAAngelica 04-21-2023 C[facility]N Telephone [facility] MARCEL WAHL ([id number]) 1965 Date Time Provider Department 04/21/23 RAFAEL BROWN [facility] During your visit today, we recorded the [...] via Dr. Shaikh Liang's office. [place] nurse [phone] Diagnosis: aneurysm All records are in [facility] Oksana Spear RN 05/06/2023 1:57 PM Addendum I have called and discussed with Marcel Brown recommendations which are there is no indication for surgery. 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 Also, blood pressure control is essential to keep aorta size stable. He verbalized understanding Oksana Spear RN diagnosis: aorta 4.1 cm on echo history: obesity, chronic back pain, anxiety, asthma, HTN, SALVATORE, Referring Provider: SHAIKH LIANG [[id number]] Allergies As of Date: 04/21/2023 Noted Allergy Reaction DEMEROL (MEPERIDINE (PF)) 06/10/2014 1 - Mental Status Change MORPHINE 06/10/2014 1 - Mental Status Change PENICILLINS 03/03/2005 Date Reviewed: 09/30/2014 Reviewed by: Coco Steinberg RN - Fully Assessed Reason for Visit: Referral Information [[id number]] Prescriptions as of 05/06/2023 - HYDROcodone-Acetaminop hen [...] Status:Closed by OKSANA SPEAR on 05/06/23 Normal [facility] CBC AUTO DIFFon 09-01-2022 BASO # 0.1 103/ul Normal 0.0-0.1 [facility] Comment on above: Performed By: #### C BC ####[facility] [address] [place], [place] [address]Dr. Gema Beck Basophils/100 WBC (Bld) 0.8 % Normal 0.2-2.0 [facility] Comment on above: Performed By: #### C BC ####[facility] [address] [address]DrSohail Beck EO # 0.2 103/ul Normal 0.0-0.7 [facility] Comment on above: Performed By: #### C BC ####[facility] [address] [address]DrSohail Beck Eosinophils/100 WBC (Bld) 1.6 % Normal 0.9-7.0 [facility] Comment on above: Performed By: #### C BC ####[facility] [address] [address]DrSohail Beck Erythrocyte distribution width (RBC) [Ratio] 11.8 % Normal 11.0-15.0 [facility] Comment on above: Performed By: #### C BC ####[facility] [address] [address]Dr. Gema Beck Hematocrit (Bld) [Volume fraction] 43.3 % Normal 42.0-54.0 [facility] Comment on above: Performed By: #### C BC ####[facility] [address] [address]Dr. Gema Beck Hemoglobin (Bld) [Mass/Vol] 14.2 g/dL Normal 14.0-18.0 [facility] Comment on above: Performed By: #### C BC ####[facility] [address] [place], [place] [address]Dr. Gema Beck IG # 0.07 10e3/ul Critically high 0.00-0.03 [facility] Comment on above: Performed By: #### C BC ####[facility] [address] [place], [place] [address]Dr. Gema Beck IG % 0.7 % Critically high 0.0-0.5 [facility] Comment on above: Performed By: #### C BC ####[facility] [address] [place], [place] [address]Dr. Gema Beck LYMPH # 2.6 103/ul Normal 1.2-3.8 [facility] Comment on above: Performed By: #### C BC ####[facility] [address] [place], [place] [address]DrSohail Gema Beck Lymphocytes/100 WBC (Bld) 27.0 % Normal 20.5-60.0 [facility] Comment on above: Performed By: #### C BC ####[facility] [address] [place], [place] [address]Dr. Gema Beck MANUAL DIFF REQ NO Normal [facility] Comment on above: Performed By: #### C BC ####[facility] [address] [place], [place] [address]Dr. Gema Beck MCH (RBC) [Entitic mass] 32.1 pg Normal 25.9-34.0 [facility] Comment on above: Performed By: #### C BC ####[facility] [address] [address]Dr. Gema Kiran MCHC (RBC) [Mass/Vol] 32.8 g/dL Normal 29.9-35.2 [facility] Comment on above: Performed By: #### C BC ####[facility] [address] [address]DrSohail Beck MCV (RBC) [Entitic vol] 98.0 fL Critically high 80.0-94.0 [facility] Comment on above: Performed By: #### C BC ####[facility] [address] [place], [place] [address]DrSohail Beck MONO # 0.7 103/ul Normal 0.3-0.8 [facility] Comment on above: Performed By: #### C BC ####[facility] [address] [place], [place] [address]Dr. Gema Beck Monocytes/100 WBC (Bld) 7.8 % Normal 1.7-12.0 [facility] Comment on above: Performed By: #### C BC ####[facility] [address] [place], [place] [address]DrSohail Beck NEUT # 5.9 103/ul Normal 1.4-6.5 [facility] Comment on above: Performed By: #### C BC ####[facility] [address] [place], [place] [address]DrSohail Beck Neutrophils/100 WBC (Bld) 62.1 % Normal 43.0-75.0 [facility] Comment on above: Performed By: #### C BC ####[facility] [address] [place], [place] [address]DrSohail Beck Platelet mean volume (Bld) [Entitic vol] 9.1 fL Critically low 9.5-13.5 [facility] Comment on above: Performed By: #### C BC ####[facility] [address] [place], [place] [address]DrSohail Beck PLT 342 103/ul Normal 150-450 [facility] Comment on above: Performed By: #### C BC ####[facility] [address] [place] [id number]. Gema Beck RBC 4.42 106/ul Critically low 4.70-6.10 [facility] Comment on above: Performed By: #### C BC ####[facility] [address] [place] [phone] Beck WBC 9.5 103/ul Normal 4.0-11.0 [facility] Comment on above: Performed By: #### C BC ####[facility] [address] [place] [phone]. Gema Beck PROF 14(COMP METB)on 023 Albumin [Mass/Vol] 3.6 g/dL Normal 3.4-5.0 [facility] Comment on above: Performed By: #### C MP #### [facility] Laboratory [address] [address] [address] Gema Beck Albumin/Globulin [Mass ratio] 1.1 {ratio} Normal [facility] Comment on above: Performed By: #### C MP #### [facility] Laboratory [address] [address] [address] Gema Beck ALP [Catalytic activity/Vol] 66 U/L Normal 46-116 [facility] Comment on above: Performed By: #### C MP #### [facility] Laboratory [address] [address] [address] Gema Beck ALT [Catalytic activity/Vol] 22 U/L Normal 16-63 [facility] Comment on above: Performed By: #### C MP #### [facility] Laboratory [address] [address] [address] Gema Beck Anion gap [Moles/Vol] 13.2 mmol/L Normal [facility] Comment on above: Performed By: #### C MP #### [facility] Laboratory [address] [address] [address] Gema Beck AST [Catalytic activity/Vol] 15 U/L Normal 15-37 [facility] Comment on above: Performed By: #### C MP #### [facility] Laboratory [address] [place] [address] Dr. Gema Beck Bilirubin [Mass/Vol] 0.3 mg/dL Normal 0.2-1.0 [facility] Comment on above: Performed By: #### C MP #### [facility] Laboratory [address] [address] [address] Gema Beck Calcium [Mass/Vol] 8.7 mg/dL Normal 8.5-10.1 [facility] Comment on above: Performed By: #### C MP #### [facility] Laboratory [address] [place] [address] Dr. Gema Beck Chloride [Moles/Vol] 105 mmol/L Normal 98-107 [facility] Comment on above: Performed By: #### C MP #### [facility] Laboratory [address] [place] [address] Dr. Gema Beck CO2 [Moles/Vol] 27.6 mmol/L Normal 21.0-32.0 [facility] Comment on above: Performed By: #### C MP #### [facility] Laboratory [address] [place] [address] Dr. Gema Beck Creatinine [Mass/Vol] 0.83 mg/dL Normal 0.70-1.30 [facility] Comment on above: Performed By: #### C MP #### [facility] Laboratory [address] [place] [address] Dr. Gema Beck EGFR-AF GAMBIAN >60 Normal >=60 [facility] Comment on above: Performed By: #### C MP #### [facility] Laboratory [address] [place] [address] Dr. Gema Beck EGFR-NON AF GAMBIAN >60 Normal >=60 [facility] Comment on above: Performed By: #### C MP #### [facility] Laboratory [address] [place] [address] Dr. Gema Beck Globulin (S) [Mass/Vol] 3.4 g/dL Normal [facility] Comment on above: Performed By: #### C MP #### [facility] Laboratory [address] [address] [address] Gema Beck Glucose [Mass/Vol] 97 mg/dL Normal 74-106 [facility] Comment on above: Performed By: #### C MP #### [facility] [address] [address] [address] Gema Beck Potassium [Moles/Vol] 3.8 mmol/L Normal 3.5-5.1 [facility] Comment on above: Performed By: #### C MP #### [facility] Laboratory [address] [address] [address] Gema Beck Protein [Mass/Vol] 7.0 g/dL Normal 6.4-8.2 [facility] Comment on above: Performed By: #### C MP #### [facility] Laboratory [address] [address] [address] Gema Beck Sodium [Moles/Vol] 142 mmol/L Normal 136-145 [facility] Comment on above: Performed By: #### C MP #### [facility] Laboratory [address] [address] [address] Gema Beck Urea nitrogen [Mass/Vol] 17.0 mg/dL Normal 7.0-18.0 [facility] Comment on above: Performed By: #### C MP #### [facility] Laboratory [address] [address] [address] Gema Beck Urea nitrogen/Creatinine [Mass ratio] 20.5 mg/mg Normal [facility] Comment on above: Performed By: #### C MP #### [facility] Laboratory [address] [address] [address] Gema Beck CBC AUTO DIFFon 06-29-2022 BASO # 0.1 103/ul Normal 0.0-0.1 [facility] Comment on above: Performed By: #### C BC ####[facility] [address] [address]Dr. Gema Beck Basophils/100 WBC (Bld) 1.4 % Normal 0.2-2.0 [facility] Comment on above: Performed By: #### C BC ####[facility] [address] [place] [phone]. Gema Beck EO # 0.1 103/ul Normal 0.0-0.7 [facility] Comment on above: Performed By: #### C BC ####[facility] [address] [place] [id number]. Gema Beck Eosinophils/100 WBC (Bld) 2.1 % Normal 0.9-7.0 [facility] Comment on above: Performed By: #### C BC ####[facility] [address] [place], [place] [address]Dr. Gema Beck Erythrocyte distribution width (RBC) [Ratio] 12.3 % Normal 11.0-15.0 [facility] Comment on above: Performed By: #### C BC ####[facility] [address] [place], [place] [address]Dr. Gema Beck Hematocrit (Bld) [Volume fraction] 42.2 % Normal 42.0-54.0 [facility] Comment on above: Performed By: #### C BC ####[facility] [address] [place], [place] [address]Dr. Gema Beck Hemoglobin (Bld) [Mass/Vol] 13.9 g/dL Critically low 14.0-18.0 [facility] Comment on above: Performed By: #### C BC ####[facility] [address] [place], [place] [address]Dr. Gema Beck IG # 0.07 10e3/ul Critically high 0.00-0.03 [facility] Comment on above: Performed By: #### C BC ####[facility] [address] [place], [place] [address]Dr. Gema Beck IG % 1.1 % Critically high 0.0-0.5 [facility] Comment on above: Performed By: #### C BC ####[facility] [address] [place], [place] [address]Dr. Gema Beck LYMPH # 1.9 103/ul Normal 1.2-3.8 [facility] Comment on above: Performed By: #### C BC ####[facility] [address] [place] [phone]. Gema Beck Lymphocytes/100 WBC (Bld) 28.6 % Normal 20.5-60.0 [facility] Comment on above: Performed By: #### C BC ####[facility] [address] [place] [phone]. Enedeliaamairani Beck MANUAL DIFF REQ NO Normal [facility] Comment on above: Performed By: #### C BC ####[facility] [address] [place] [phone]. Gema Kiran MCH (RBC) [Entitic mass] 32.0 pg Normal 25.9-34.0 [facility] Comment on above: Performed By: #### C BC ####[facility] [address] [place], [place] [address]Dr. Gema Kiran MCHC (RBC) [Mass/Vol] 32.9 g/dL Normal 29.9-35.2 [facility] Comment on above: Performed By: #### C BC ####[facility] [address] [place], [place] [address]Dr. Gema Kiran MCV (RBC) [Entitic vol] 97.0 fL Critically high 80.0-94.0 [facility] Comment on above: Performed By: #### C BC ####[facility] [address] [place], [place] [address]Dr. Gmea Kiran MONO # 0.5 103/ul Normal 0.3-0.8 [facility] Comment on above: Performed By: #### C BC ####[facility] [address] [place], [place] [address]Dr. Enedeliaamairani Beck Monocytes/100 WBC (Bld) 8.0 % Normal 1.7-12.0 [facility] Comment on above: Performed By: #### C BC ####[facility] [address] [place], [place] [address]Dr. Gema Beck NEUT # 3.9 103/ul Normal 1.4-6.5 [facility] Comment on above: Performed By: #### C BC ####[facility] [address] [place] [id number]. Gema Beck Neutrophils/100 WBC (Bld) 58.8 % Normal 43.0-75.0 [facility] Comment on above: Performed By: #### C BC ####[facility] [address] [place] [id number]. Gema Beck Platelet mean volume (Bld) [Entitic vol] 9.6 fL Normal 9.5-13.5 [facility] Comment on above: Performed By: #### C BC ####[facility] [address] [place] [id number]. Gema Beck PLT 334 103/ul Normal 150-450 [facility] Comment on above: Performed By: #### C BC ####[facility] [address] [place] [id number]. Gema Beck RBC 4.35 106/ul Critically low 4.70-6.10 [facility] Comment on above: Performed By: #### C BC ####[facility] [address] [place] [id number]. Gema Beck WBC 6.7 103/ul Normal 4.0-11.0 [facility] Comment on above: Performed By: #### C BC ####[facility] [address] [place] [id number]. Gema Beck GLYCOHEMOGLOBIN A1Con 2021 ADA RECOMMENDATION SEE BELOW Normal [facility] Comment on above: Result Comment: ADA RECOMMENDED LIMIT 4.0 - 6.0 ADA THERAPEUTIC TARGET < 7.0 ACTION SUGGESTED > 7.0 Performed By: #### A 1C ####[facility] [address] [place], [place] [address]Dr. Gema Beck Glucose [Mass/Vol] 120 mg/dL Normal [facility] Comment on above: Performed By: #### A 1C ####[facility] [address] [place] [id number]. Gema Beck HbA1c (Bld) [Mass fraction] 5.8 % Normal 4.5-6.2 [facility] Comment on above: Performed By: #### A 1C ####[facility] [address] [place], [place] [address]JiDr. Gema Beck LIPID PROFILEon 06-29-2022 CHOL-HDL RATIO NORM SEE BELOW Normal [facility] Comment on above: Result Comment: 3.3 - 4.4 LOW RISK 4.4 - 7.1 AVERAGE RISK 7.1 - 11.0 MODERATE RISK >11.0 HIGH RISK Performed By: #### L IPID, TSH, CMP #### [facility] Laboratory [address] [address] [address] Gema Beck Cholesterol [Mass/Vol] 183 mg/dL Normal <=200 [facility] Comment on above: Performed By: #### L IPID, TSH, CMP #### [facility] Laboratory [address] [address] [address] Gema Beck Cholesterol in HDL [Mass/Vol] 44 mg/dL Normal 40-60 [facility] Comment on above: Performed By: #### L IPID, TSH, CMP #### [facility] Laboratory [address] [address] [address] Gema Beck Cholesterol in LDL [Mass/Vol] 125.2 mg/dL Normal [facility] Comment on above: Performed By: #### L IPID, TSH, CMP #### [facility] Laboratory [address] [address] [address] Gema Beck Cholesterol.total/Ch olesterol in HDL [Mass ratio] 4.2 {ratio} Normal [facility] Comment on above: Performed By: #### L IPID, TSH, CMP #### [facility] Laboratory [address] [address] [address] Gema Beck HDL NORMAL > or = 60 mg/dl - LO W CARDIOVASCULAR RISK <40 mg/dl - HIGH CARDIOVASCULAR RISK Normal [facility] Comment on above: Performed By: #### L IPID, TSH, CMP #### [facility] Laboratory [address] [id number] [address] Gema Beck LDL CALC NORMAL SEE BELOW Normal [facility] Comment on above: Result Comment: <100 mg/dl OPTIMAL 100 - 129 mg/dl NEAR OR ABOVE OPTIMAL 130 - 159 mg/dl BORDERLINE HIGH 160 - 189 mg/dl HIGH >190 mg/dl VERY HIGH Performed By: #### L IPID, TSH, CMP #### [facility] Laboratory [address] [place] [address] Dr. Gema Beck Triglyceride [Mass/Vol] 69 mg/dL Normal <=150 [facility] Comment on above: Performed By: #### L IPID, TSH, CMP #### [facility] Laboratory [address] [address] [address] Gema Beck VLDL CALC 13.8 mg/dL Normal [facility] Comment on above: Performed By: #### L IPID, TSH, CMP #### [facility] Laboratory [address] [place] [address] Dr. Gema Beck PROF 14(COMP METB)on 022 Albumin [Mass/Vol] 3.6 g/dL Normal 3.4-5.0 [facility] Comment on above: Performed By: #### L IPID, TSH, CMP #### [facility] Laboratory [address] [place] [address] Dr. Gema Beck Albumin/Globulin [Mass ratio] 1.1 {ratio} Normal [facility] Comment on above: Performed By: #### L IPID, TSH, CMP #### [facility] Laboratory [address] [place] [address] Dr. Gema Beck ALP [Catalytic activity/Vol] 73 U/L Normal 46-116 [facility] Comment on above: Performed By: #### L IPID, TSH, CMP #### [facility] Laboratory [address] [place] [address] Dr. Gema Beck ALT [Catalytic activity/Vol] 29 U/L Normal 16-63 [facility] Comment on above: Performed By: #### L IPID, TSH, CMP #### [facility] Laboratory [address] [place] [address] Dr. Gema Beck Anion gap [Moles/Vol] 7.3 mmol/L Normal [facility] Comment on above: Performed By: #### L IPID, TSH, CMP #### [facility] Laboratory [address] [address] [address] Gema Beck AST [Catalytic activity/Vol] 18 U/L Normal 15-37 [facility] Comment on above: Performed By: #### L IPID, TSH, CMP #### [facility] Laboratory [address] [address] [address] Gema Beck Bilirubin [Mass/Vol] 0.4 mg/dL Normal 0.2-1.0 [facility] Comment on above: Performed By: #### L IPID, TSH, CMP #### [facility] Laboratory [address] [address] [address] Gema Beck Calcium [Mass/Vol] 8.6 mg/dL Normal 8.5-10.1 [facility] Comment on above: Performed By: #### L IPID, TSH, CMP #### [facility] Laboratory [address] [place] [address] Dr. Gema Beck Chloride [Moles/Vol] 104 mmol/L Normal 98-107 [facility] Comment on above: Performed By: #### L IPID, TSH, CMP #### [facility] Laboratory [address] [address] [address] Gema Beck CO2 [Moles/Vol] 29.1 mmol/L Normal 21.0-32.0 [facility] Comment on above: Performed By: #### L IPID, TSH, CMP #### [facility] Laboratory [address] [address] [address] Gema Beck Creatinine [Mass/Vol] 0.88 mg/dL Normal 0.70-1.30 [facility] Comment on above: Performed By: #### L IPID, TSH, CMP #### [facility] Laboratory [address] [address] [address] Gema Beck EGFR-AF GAMBIAN >60 Normal >=60 The [facility] Comment on above: Performed By: #### L IPID, TSH, CMP #### [facility] Laboratory [address] [address] [address] Gema Beck EGFR-NON AF GAMBIAN >60 Normal >=60 [facility] Comment on above: Performed By: #### L IPID, TSH, CMP #### [facility] Laboratory [address] [address] [address] Gema Beck Globulin (S) [Mass/Vol] 3.4 g/dL Normal [facility] Comment on above: Performed By: #### L IPID, TSH, CMP #### [facility] Laboratory [address] [address] [address] Gema Beck Glucose [Mass/Vol] 99 mg/dL Normal 74-106 [facility] Comment on above: Performed By: #### L IPID, TSH, CMP #### [facility] Laboratory [address] [place] [address] Dr. Gema Beck Potassium [Moles/Vol] 4.4 mmol/L Normal 3.5-5.1 [facility] Comment on above: Performed By: #### L IPID, TSH, CMP #### [facility] Laboratory [address] [place] [address] Dr. Gema Beck Protein [Mass/Vol] 7.0 g/dL Normal 6.4-8.2 [facility] Comment on above: Performed By: #### L IPID, TSH, CMP #### [facility] Laboratory [address] [place] [address] Dr. Gema Beck Sodium [Moles/Vol] 136 mmol/L Normal 136-145 [facility] Comment on above: Performed By: #### L IPID, TSH, CMP #### [facility] Laboratory [address] [place] [address] Dr. Gema Beck Urea nitrogen [Mass/Vol] 17.0 mg/dL Normal 7.0-18.0 [facility] Comment on above: Performed By: #### L IPID, TSH, CMP #### [facility] Laboratory [address] [place] [address] Dr. Gema Beck Urea nitrogen/Creatinine [Mass ratio] 19.3 mg/mg Normal [facility] Comment on above: Performed By: #### L IPID, TSH, CMP #### [facility] Laboratory [address] [place] [address] Dr. Gema Beck TSHon 06-29-2022 TSH 1.148 uIU/mL Normal 0.358-3.740 [facility] Comment on above: Performed By: #### L IPID, TSH, CMP ####[facility] [address] [place] [address]Dr. Gema Beck UA RANDOM W/MICROSCOPICon BACTERIA NONE SEEN Normal NONE SEEN The [facility] Comment on above: Performed By: #### U AMIC #### [facility] Laboratory [address] [address] [address] Gema Beck Bilirubin Ql (U) SMALL Abnormal NEGATIVE [facility] Comment on above: Performed By: #### U AMIC #### [facility] Laboratory [address] [address] [address] Gema Beck CAST NONE SEEN Normal NONE SEEN [facility] Comment on above: Performed By: #### U AMIC #### [facility] Laboratory [address] [address] [address] Gema Beck Clarity (U) CLEAR Normal CLEAR [facility] Comment on above: Performed By: #### U AMIC #### [facility] Laboratory [address] [address] [address] Gema Beck Color (U) LT. YELLOW Normal YELLOW [facility] Comment on above: Performed By: #### U AMIC #### [facility] Laboratory [address] [address] [address] Gema Beck Crystals LM Nom (Urine sed) NONE SEEN Normal NONE SEEN [facility] Comment on above: Performed By: #### U AMIC #### [facility] Laboratory [address] [address] [address] Gema Beck Epithelial cells LM Ql (Urine sed) RARE Normal NONE SEEN /RARE The [facility] Comment on above: Performed By: #### U AMIC #### [facility] Laboratory [address] [address] [address] Gema Beck Glucose Ql (U) Negative Normal NEGATIVE The [facility] Comment on above: Performed By: #### U AMIC #### [facility] Laboratory [address] [address] [address] Gema Beck Hemoglobin Ql (U) Negative Normal NEGATIVE The [facility] Comment on above: Performed By: #### U AMIC #### [facility] Laboratory [address] [address] [address] Gema Beck Ketones Ql (U) Negative Normal NEGATIVE The [facility] Comment on above: Performed By: #### U AMIC #### [facility] Laboratory [address] [address] [address] Gema Beck LEUKOCYTES Negative Normal NEGATIVE [facility] Comment on above: Performed By: #### U AMIC #### [facility] Laboratory [address] [address] [address] Gema Beck MUCOUS NONE SEEN Normal NONE SEEN [facility] Comment on above: Performed By: #### U AMIC #### [facility] Laboratory [address] [place] [address] Dr. Gema Beck Nitrite Ql (U) Negative Normal NEGATIVE [facility] Comment on above: Performed By: #### U AMIC #### [facility] Laboratory [address] [place] [address] Dr. Gema Beck pH (U) 5.5 [pH] Normal 5-9 [facility] Comment on above: Performed By: #### U AMIC #### [facility] Laboratory [address] [place] [address] Dr. Gema Beck RBC NONE SEEN Abnormal 0-2 [facility] Comment on above: Performed By: #### U AMIC #### [facility] Laboratory [address] [place] [address] Dr. Gema Beck SPEC GRAVITY 1.010 Normal 1.005-<=1.025 [facility] Comment on above: Performed By: #### U AMIC #### [facility] Laboratory [address] [place] [address] Dr. Gema Beck UA PROTEIN Negative Normal NEGATIVE/ TRACE The [facility] Comment on above: Performed By: #### U AMIC #### [facility] Laboratory [address] [place] [address] Dr. Gema Beck Urobilinogen Qn (U) 0.2 {Merari'U}/dL Normal 0.2 - 1. 0 [facility] Comment on above: Performed By: #### U AMIC #### [facility] Laboratory [address] [place] [address] Dr. Gema Beck WBC NONE SEEN Normal NONE SEEN [facility] Comment on above: Performed By: #### U AMIC #### [facility] Laboratory [address] [place] [address] Dr. Gema Beck ALDOLASEon 03-04-2022 Aldolase 3.4 U/L Normal 3.3-10.3 [facility] Comment on above: Performed By: #### A LDOLAS ####[facility] [address] [place], [place] [address]Dr. Gema Beck CPKon 03-03-2022 CK [Catalytic activity/Vol] 205 U/L Normal 39-308 [facility] Comment on above: Performed By: #### L DH, CK, EVI #### [facility] Laboratory [address] [place] [address] Dr. Gema Beck LDHon 03-03-2022 LDH 180 U/L Normal 85-227 [facility] Comment on above: Performed By: #### L DH, CK, EVI #### [facility] Laboratory [address] [place] [address] Dr. Gema Beck MYOGLOBINon 03-03-2022 EVI 65 ng/mL Normal 16-96 [facility] Comment on above: Performed By: #### L DH, CK, EVI #### [facility] Laboratory [address] [place] [address] Dr. Gema Beck CBC AUTO DIFFon 02-23-2022 BASO # 0.1 103/ul Normal 0.0-0.1 [facility] Comment on above: Performed By: #### C BC ####[facility] [address] [place] [address]Dr. Gema Beck Basophils/100 WBC (Bld) 1.1 % Normal 0.2-2.0 [facility] Comment on above: Performed By: #### C BC ####[facility] [address] [place] [id number]. Gema Beck EO # 0.1 103/ul Normal 0.0-0.7 [facility] Comment on above: Performed By: #### C BC ####[facility] [address] [place] [phone]. Gema Beck Eosinophils/100 WBC (Bld) 1.5 % Normal 0.9-7.0 [facility] Comment on above: Performed By: #### C BC ####[facility] [address] [place], [place] [address]Dr. Gema Beck Erythrocyte distribution width (RBC) [Ratio] 12.0 % Normal 11.0-15.0 [facility] Comment on above: Performed By: #### C BC ####[facility] [address] [place], [place] [address]Dr. Gema Beck Hematocrit (Bld) [Volume fraction] 42.9 % Normal 42.0-54.0 [facility] Comment on above: Performed By: #### C BC ####[facility] [address] [place] [address]Dr. Gema Beck Hemoglobin (Bld) [Mass/Vol] 14.0 g/dL Normal 14.0-18.0 [facility] Comment on above: Performed By: #### C BC ####[facility] [address] [place] [address]Dr. Gema Beck IG # 0.04 10e3/ul Critically high 0.00-0.03 The [facility] Comment on above: Performed By: #### C BC ####[facility] [address] [place] [address]Dr. Gema Beck IG % 0.6 % Critically high 0.0-0.5 The [facility] Comment on above: Performed By: #### C BC ####[facility] [address] [place], [place] [address]Dr. Gema Beck LYMPH # 2.1 103/ul Normal 1.2-3.8 The [facility] Comment on above: Performed By: #### C BC ####[facility] [address] [place] [id number]. Gema Kiran Lymphocytes/100 WBC (Bld) 28.6 % Normal 20.5-60.0 [facility] Comment on above: Performed By: #### C BC ####[facility] [address] [place] [id number]. Enedeliaamairani Beck MANUAL DIFF REQ NO Normal [facility] Comment on above: Performed By: #### C BC ####[facility] [address] [place] [phone]. Enedeliaamairani Beck MCH (RBC) [Entitic mass] 31.9 pg Normal 25.9-34.0 The [facility] Comment on above: Performed By: #### C BC ####[facility] [address] [place] [address]Dr. Gema Kiran MCHC (RBC) [Mass/Vol] 32.6 g/dL Normal 29.9-35.2 The [facility] Comment on above: Performed By: #### C BC ####[facility] [address] [place] [id number]. Enedeliaamairani Beck MCV (RBC) [Entitic vol] 97.7 fL Critically high 80.0-94.0 The [facility] Comment on above: Performed By: #### C BC ####[facility] [address] [place] [address]Dr. Gema Beck MONO # 0.6 103/ul Normal 0.3-0.8 The [facility] Comment on above: Performed By: #### C BC ####[facility] [address] [place] [phone]. Gema Beck Monocytes/100 WBC (Bld) 7.8 % Normal 1.7-12.0 [facility] Comment on above: Performed By: #### C BC ####[facility] [address] [place], [place] [address]Dr. Gema Beck NEUT # 4.4 103/ul Normal 1.4-6.5 The [facility] Comment on above: Performed By: #### C BC ####[facility] [address] [place] [phone]. Gema Beck Neutrophils/100 WBC (Bld) 60.4 % Normal 43.0-75.0 [facility] Comment on above: Performed By: #### C BC ####[facility] [address] [place] [phone]. Gema Beck Platelet mean volume (Bld) [Entitic vol] 9.2 fL Critically low 9.5-13.5 [facility] Comment on above: Performed By: #### C BC ####[facility] [address] [place] [id number]. Gema Beck PLT 376 103/ul Normal 150-450 [facility] Comment on above: Performed By: #### C BC ####[facility] [address] [place] [phone]. Gema Beck RBC 4.39 106/ul Critically low 4.70-6.10 [facility] Comment on above: Performed By: #### C BC ####[facility] [address] [place] [id number]. Gema Beck WBC 7.2 103/ul Normal 4.0-11.0 [facility] Comment on above: Performed By: #### C BC ####[facility] [address] [place] [id number] Beck PROF 14(COMP METB)on 022 Albumin [Mass/Vol] 3.7 g/dL Normal 3.4-5.0 [facility] Comment on above: Performed By: #### C MP #### [facility] Laboratory [address] [address] [address] Gema Beck Albumin/Globulin [Mass ratio] 1.1 {ratio} Normal [facility] Comment on above: Performed By: #### C MP #### [facility] Laboratory [address] [address] [address] Gema Beck ALP [Catalytic activity/Vol] 67 U/L Normal 46-116 [facility] Comment on above: Performed By: #### C MP #### [facility] Laboratory [address] [address] [address] Gema Beck ALT [Catalytic activity/Vol] 28 U/L Normal 16-63 [facility] Comment on above: Performed By: #### C MP #### [facility] Laboratory [address] [address] [address] Gema Beck Anion gap [Moles/Vol] 10.3 mmol/L Normal [facility] Comment on above: Performed By: #### C MP #### [facility] Laboratory [address] [address] [address] Gema Beck AST [Catalytic activity/Vol] 19 U/L Normal 15-37 [facility] Comment on above: Performed By: #### C MP #### [facility] Laboratory [address] [place] [address] Dr. Gema Beck Bilirubin [Mass/Vol] 0.5 mg/dL Normal 0.2-1.0 [facility] Comment on above: Performed By: #### C MP #### [facility] Laboratory [address] [place] [address] Dr. Gema Beck Calcium [Mass/Vol] 8.8 mg/dL Normal 8.5-10.1 [facility] Comment on above: Performed By: #### C MP #### [facility] Laboratory [address] [place] [address] Dr. Gema Beck Chloride [Moles/Vol] 104 mmol/L Normal 98-107 The [facility] Comment on above: Performed By: #### C MP #### [facility] Laboratory [address] [address] [address] Gema Beck CO2 [Moles/Vol] 30.0 mmol/L Normal 21.0-32.0 The [facility] Comment on above: Performed By: #### C MP #### [facility] Laboratory [address] [place] [address] Dr. Gema Beck Creatinine [Mass/Vol] 0.86 mg/dL Normal 0.70-1.30 The [facility] Comment on above: Performed By: #### C MP #### [facility] Laboratory [address] [place] [address] Dr. Gema Beck EGFR-AF GAMBIAN >60 Normal >=60 The [facility] Comment on above: Performed By: #### C MP #### [facility] [address] [address] [address] Gema Beck EGFR-NON AF GAMBIAN >60 Normal >=60 [facility] Comment on above: Performed By: #### C MP #### [facility] [address] [address] [address] Gema Beck Globulin (S) [Mass/Vol] 3.5 g/dL Normal [facility] Comment on above: Performed By: #### C MP #### [facility] [address] [address] [address] Gema Beck Glucose [Mass/Vol] 103 mg/dL Normal 74-106 [facility] Comment on above: Performed By: #### C MP #### [facility] [address] [address] [address] Gema Beck Potassium [Moles/Vol] 4.3 mmol/L Normal 3.5-5.1 [facility] Comment on above: Performed By: #### C MP #### [facility] [address] [place] [address] Dr. Gema Beck Protein [Mass/Vol] 7.2 g/dL Normal 6.4-8.2 [facility] Comment on above: Performed By: #### C MP #### [facility] [address] [address] [address] Gema Beck Sodium [Moles/Vol] 140 mmol/L Normal 136-145 [facility] Comment on above: Performed By: #### C MP #### [facility] [address] [address] [address] Gema Beck Urea nitrogen [Mass/Vol] 18.0 mg/dL Normal 7.0-18.0 [facility] Comment on above: Performed By: #### C MP #### [facility] [address] [address] [address] Gema Beck Urea nitrogen/Creatinine [Mass ratio] 20.9 mg/mg Normal [facility] Comment on above: Performed By: #### C MP #### [facility] [address] [address] [address] Gema Beck XR CHEST (2 VW)on [...] Terence Leroy MD 02/14/20 Final result Normal [facility] XR CHEST STANDARD (2 VW)on 0 02-14-2020 Negative chest. [place], [place] EXAMINATION: TWO XRA Y VIEWS OF THE CHEST 02/14/2020 2:30 pm COMPARISON: None. HISTORY: ORDERING SYSTEM PROVIDED HISTORY: insure deep inspiration FINDINGS: The lungs are without acute focal process. No effusion or pneumothorax. The cardiomediastinal silhouette is normal. The osseous structures are intact without acute process. [place], [place], [employer] Incoming Radiant Results From [employer] - 02/14/2020 2:38 PM EDT EXAMINATION: TWO XRAY VIEWS OF THE CHEST 02/14/2020 2:30 pm COMPARISON: None. HISTORY: ORDERING SYSTEM PROVIDED HISTORY: insure deep inspiration FINDINGS: The lungs are without acute focal process. No effusion or pneumothorax. The cardiomediastinal silhouette is normal. The osseous structures are intact without acute process. IMPRESSION: [facility]. [facility] [place] [facility] Sign[facility] Date Time Vital Sign Value Performing Clinician Facility 11-15-2024 13:02040 Body mass index (BMI) [Ratio] 42.24 kg/m2 Shavonne Chowdary FLUX PLANT OPERATOR Work Phone: [facility] 11-15-2024 13:02040 Body temperature 98.4 [degF] Shavonne Chowdary NP Work Phone: [facility] 11-15-2024 13:020400 Body weight 133.54 kg Shavonne Aichholz FLUX PLANT OPERATOR Work Phone: [facility] 11-15-2024 13:02-0400 Diastolic blood pressure 78 mm[Hg] Shavonne Dayannahholz FLUX PLANT OPERATOR Work Phone: [facility] 11-15-2024 13:02-0400 Heart rate 76 /min Shavonne Dayannahholz FLUX PLANT OPERATOR Work Phone: [facility] 11-15-2024 13:02-0400 Respiratory rate 18 /min Shavonne Marvinholz FLUX PLANT OPERATOR Work Phone: [facility] 11-15-2024 13:02-0400 SaO2% (BldA) [Mass fraction] 97 % Shavonne Dayannahholz FLUX PLANT OPERATOR Work Phone: [facility] 11-15-2024 13:02-0400 Systolic blood pressure 118 mm[Hg] Shavonne Dayannahholz FLUX PLANT OPERATOR Work Phone: [facility] 11-13-2024 13:11-0400 Diastolic blood pressure 97 mm[Hg] Satya Iqbal PA Work Phone: [facility] 11-13-2024 13:11-0400 Heart rate 78 /min Satya Iqbal PA Work Phone: [facility] 11-13-2024 13:11-0400 Respiratory rate 18 /min Satya Iqbal PA Work Phone: [facility] 11-13-2024 13:11-0400 Systolic blood pressure 121 mm[Hg] Satya Iqbal PA Work Phone: [facility] 10-29-2024 13:43-0400 Body mass index (BMI) [Ratio] 42.87 kg/m2 Shavonne Dayannahholz FLUX PLANT OPERATOR Work Phone: [facility] 10-29-2024 13:43-0400 Body temperature 98.4 [degF] Shavonne Dayannahholz FLUX PLANT OPERATOR Work Phone: [facility] 10-29-2024 13:43-0400 Body weight 135.53 kg Shavonne Dayannahholz FLUX PLANT OPERATOR Work Phone: [facility] 10-29-2024 13:43-0400 Diastolic blood pressure 82 mm[Hg] Shavonne Aichholz FLUX PLANT OPERATOR Work Phone: [facility] 10-29-2024 13:43-0400 Heart rate 79 /min Shavonne Aichholz FLUX PLANT OPERATOR Work Phone: [facility] 10-29-2024 13:43-0400 Respiratory rate 19 /min Shavonne Aichholz FLUX PLANT OPERATOR Work Phone: [facility] 10-29-2024 13:43-0400 SaO2% (BldA) [Mass fraction] 92 % Shavonne Dayannahholz FLUX PLANT OPERATOR Work Phone: [facility] 10-29-2024 13:43-0400 Systolic blood pressure 140 mm[Hg] Shavonne Aichholz FLUX PLANT OPERATOR Work Phone: [facility] 10-08-2024 10:20-0500 Blood Pressure Location Wendi Orzech [facility] 10-08-2024 10:20-0500 Diastolic blood pressure 66 mm[Hg] Wendi Orzech [facility] 10-08-2024 10:20-0500 Heart rate 80 /min Wendi Orzech [facility] 10-08-2024 10:20-0500 Respiratory rate 16 /min Wendi Orzech [facility] 10-08-2024 10:20-0500 Systolic blood pressure 134 mm[Hg] Wendi Orzech [facility] 10-02-2024 11:18-0500 Body height 177.8 cm Satya SANABRIA Work Phone: [facility] 10-02-2024 11:18-0500 Body mass index (BMI) [Ratio] 45.2 kg/m2 Satya Iqbal PA Work Phone: [facility] 10-02-2024 11:18-0500 Body weight 142.88 kg Satya Iqbal PA Work Phone: [facility] 10-02-2024 11:18-0500 Diastolic blood pressure 83 mm[Hg] Satya Iqbal PA Work Phone: [facility] 10-02-2024 11:18-0500 Heart rate 80 /min Satya Iqbal PA Work Phone: [facility] 10-02-2024 11:18-0500 Respiratory rate 18 /min Satya Iqbal PA Work Phone: [facility] 10-02-2024 11:18-0500 SaO2% (BldA) [Mass fraction] 95 % Satya Iqbal PA Work Phone: [facility] 10-02-2024 11:18-0500 Systolic blood pressure 137 mm[Hg] Satya Iqbal PA Work Phone: [facility] 10-01-2024 15:39-0500 Body mass index (BMI) [Ratio] 45.2 kg/m2 Shavonne Chowdary FLUX PLANT OPERATOR Work Phone: [facility] 10-01-2024 15:39-0500 Body temperature 99.39 [degF] Shavonne Epi FLUX PLANT OPERATOR Work Phone: [facility] 10-01-2024 15:39-0500 Body weight 142.88 kg Shavonne Mikez FLUX PLANT OPERATOR Work Phone: [facility] 10-01-2024 15:39-0500 Diastolic blood pressure 78 mm[Hg] Shavonne Mikez FLUX PLANT OPERATOR Work Phone: [facility] 10-01-2024 15:39-0500 Heart rate 85 /min Shavonne Mikez FLUX PLANT OPERATOR Work Phone: [facility] 10-01-2024 15:39-0500 Respiratory rate 20 /min Shavonne Aichholz FLUX PLANT OPERATOR Work Phone: [facility] 10-01-2024 15:39-0500 SaO2% (BldA) [Mass fraction] 96 % Shavonne Aichholz FLUX PLANT OPERATOR Work Phone: [facility] 10-01-2024 15:39-0500 Systolic blood pressure 128 mm[Hg] Shavonne Aichholz FLUX PLANT OPERATOR Work Phone: [facility] 09-25-2024 15:33-0500 Body mass index (BMI) [Ratio] 44.19 kg/m2 Shavonne Aichholz FLUX PLANT OPERATOR Work Phone: [facility] 09-25-2024 15:33-0500 Body temperature 98.71 [degF] Shavonne Aichholz FLUX PLANT OPERATOR Work Phone: [facility] 09-25-2024 15:33-0500 Body weight 139.71 kg Shavonne Aichholz FLUX PLANT OPERATOR Work Phone: [facility] 09-25-2024 15:33-0500 Diastolic blood pressure 88 mm[Hg] Shavonne Aichholz FLUX PLANT OPERATOR Work Phone: [facility] 09-25-2024 15:33-0500 Heart rate 93 /min Shavonne Aichholz FLUX PLANT OPERATOR Work Phone: [facility] 09-25-2024 15:33-0500 Respiratory rate 20 /min Shavonne Aichholz FLUX PLANT OPERATOR Work Phone: [facility] 09-25-2024 15:33-0500 SaO2% (BldA) [Mass fraction] 96 % Shavonne Aichholz FLUX PLANT OPERATOR Work Phone: [facility] 09-25-2024 15:33-0500 Systolic blood pressure 108 mm[Hg] Shavonne Aichholz FLUX PLANT OPERATOR Work Phone: [facility] 09-13-2024 10:40-0500 Diastolic blood pressure 84 mm[Hg] Shavonne Aichholz FLUX PLANT OPERATOR Work Phone: [facility] 09-13-2024 10:40-0500 Heart rate 62 /min Shavonne Mckeonz FLUX PLANT OPERATOR Work Phone: [facility] 09-13-2024 10:40-0500 Systolic blood pressure 142 mm[Hg] Shavonne Marvinholz FLUX PLANT OPERATOR Work Phone: [facility] 09-13-2024 10:03-0500 Body mass index (BMI) [Ratio] 43.19 kg/m2 Shavonneangel Wongholz FLUX PLANT OPERATOR Work Phone: [facility] 09-13-2024 10:03-0500 Body temperature 98.2 [degF] Shavonne Marvinholz FLUX PLANT OPERATOR Work Phone: [facility] 09-13-2024 10:03-0500 Body weight 136.53 kg Shavonne Marvinholz FLUX PLANT OPERATOR Work Phone: [facility] 09-13-2024 10:03-0500 Respiratory rate 20 /min Shavonneangel Wongholz FLUX PLANT OPERATOR Work Phone: [facility] 09-13-2024 10:03-0500 SaO2% (BldA) [Mass fraction] 95 % Shavonne Marvinholz FLUX PLANT OPERATOR Work Phone: [facility] 09-05-2024 14:28-0500 Body height 177.8 cm Shavonneangel Wongholz FLUX PLANT OPERATOR Work Phone: [facility] 09-05-2024 14:28-0500 Body mass index (BMI) [Ratio] 44.25 kg/m2 Shavonne Marvinholz FLUX PLANT OPERATOR Work Phone: [facility] 09-05-2024 14:28-0500 Body temperature 98.8 [degF] Shavonne Marvinholz FLUX PLANT OPERATOR Work Phone: [facility] 09-05-2024 14:28-0500 Body weight 139.89 kg Shavonne Marvinholz FLUX PLANT OPERATOR Work Phone: [facility] 09-05-2024 14:28-0500 Diastolic blood pressure 90 mm[Hg] Shavonne Epi FLUX PLANT OPERATOR Work Phone: [facility] 09-05-2024 14:28-0500 Heart rate 84 /min Shavonne Epi FLUX PLANT OPERATOR Work Phone: [facility] 09-05-2024 14:28-0500 Respiratory rate 22 /min Shavonne Epi FLUX PLANT OPERATOR Work Phone: [facility] 09-05-2024 14:28-0500 SaO2% (BldA) [Mass fraction] 96 % Shavonne Epi FLUX PLANT OPERATOR Work Phone: [facility] 09-05-2024 14:28-0500 Systolic blood pressure 120 mm[Hg] Shavonne Epi FLUX PLANT OPERATOR Work Phone: [facility] 06-26-2024 12:04-0500 Blood Pressure Location Wendi Orzech [facility] 06-26-2024 12:04-0500 Diastolic blood pressure 78 mm[Hg] Wendi Orzech [facility] 06-26-2024 12:04-0500 Heart rate 73 /min Wendi Orzech [facility] 06-26-2024 12:04-0500 Systolic blood pressure 138 mm[Hg] Wendi Orzech [facility] 06-26-2024 09:31-0500 Body height 177.8 cm Shavonne Epi FLUX PLANT OPERATOR Work Phone: [facility] 06-26-2024 09:31-0500 Body mass index (BMI) [Ratio] 44.11 kg/m2 Shavonne Epi FLUX PLANT OPERATOR Work Phone: [facility] 06-26-2024 09:31-0500 Body temperature 98.1 [degF] Shavonne Chowdary FLUX PLANT OPERATOR Work Phone: [facility] 06-26-2024 09:31-0500 Body weight 139.44 kg Shavonne Dayannahholz FLUX PLANT OPERATOR Work Phone: [facility] 06-26-2024 09:31-0500 Diastolic blood pressure 82 mm[Hg] Shavonne Aichholz FLUX PLANT OPERATOR Work Phone: [facility] 06-26-2024 09:31-0500 Heart rate 64 /min Shavonne Aichholz FLUX PLANT OPERATOR Work Phone: [facility] 06-26-2024 09:31-0500 Respiratory rate 19 /min Shavonne Aichholz FLUX PLANT OPERATOR Work Phone: [facility] 06-26-2024 09:31-0500 SaO2% (BldA) [Mass fraction] 97 % Shavonne Aichholz FLUX PLANT OPERATOR Work Phone: [facility] 06-26-2024 09:31-0500 Systolic blood pressure 122 mm[Hg] Shavonne Aichholz FLUX PLANT OPERATOR Work Phone: [facility] 02-21-2024 09:29-0400 Blood Pressure Location Wendi Orzech [facility] 02-21-2024 09:29-0400 Diastolic blood pressure 81 mm[Hg] Wendi Orzech [facility] 02-21-2024 09:29-0400 Heart rate 101 /min Wendi Orzech [facility] 02-21-2024 09:29-0400 Respiratory rate 16 /min Wendi Orzech [facility] 02-21-2024 09:29-0400 Systolic blood pressure 136 mm[Hg] Wendi Orzech [facility] 12-05-2023 13:49-0400 Blood Pressure Location Javier HERRING [facility] 12-05-2023 13:49-0400 Diastolic blood pressure 84 mm[Hg] Javier HERRING [facility] 12-05-2023 13:49-0400 Heart rate 87 /min Javier HERRING [facility] 12-05-2023 13:49-0400 Respiratory rate 16 /min Javier HERRING [facility] 12-05-2023 13:49-0400 Systolic blood pressure 131 mm[Hg] Javier HERRING [facility] 09-29-2023 13:07-0500 Body height 177.8 cm Shavonne Chowdary FLUX PLANT OPERATOR Work Phone: [facility] 09-29-2023 13:07-0500 Body mass index (BMI) [Ratio] 45.31 kg/m2 Shavonne Chowdary FLUX PLANT OPERATOR Work Phone: [facility] 09-29-2023 13:07-0500 Body temperature 98.2 [degF] Shavonne Chowdary FLUX PLANT OPERATOR Work Phone: [facility] 09-29-2023 13:07-0500 Body weight 143.25 kg Shavonne Chowdary FLUX PLANT OPERATOR Work Phone: [facility] 09-29-2023 13:07-0500 Diastolic blood pressure 88 mm[Hg] Shavonne Epi FLUX PLANT OPERATOR Work Phone: [facility] 09-29-2023 13:07-0500 Heart rate 91 /min Shavonne Epi FLUX PLANT OPERATOR Work Phone: [facility] 09-29-2023 13:07-0500 Respiratory rate 19 /min Shavonne Chowdary FLUX PLANT OPERATOR Work Phone: [facility] 09-29-2023 13:07-0500 SaO2% (BldA) [Mass fraction] 98 % Shavonne Epi FLUX PLANT OPERATOR Work Phone: [facility] 09-29-2023 13:07-0500 Systolic blood pressure 138 mm[Hg] Shavonne Epi FLUX PLANT OPERATOR Work Phone: [facility] 03-28-2023 11:36-0400 Blood Pressure Location Javier HERRING [facility] 03-28-2023 11:36-0400 Diastolic blood pressure 80 mm[Hg] Javier HERRING [facility] 03-28-2023 11:36-0400 Heart rate 84 /min Javier HERRING [facility] 03-28-2023 11:36-0400 Respiratory rate 16 /min Javier HERRING [facility] 03-28-2023 11:36-0400 Systolic blood pressure 135 mm[Hg] Javier HERRING [facility] 01-03-2023 11:30-0400 Body height 177.8 cm Carrie Staples Other [employer] Other 01-03-2023 11:30-0400 Body mass index (BMI) [Ratio] 45.59 kg/m2 Carrie Staples Other [employer] Other 01-03-2023 11:30-0400 Body weight 144.15 kg Carrie Staples Other [facility] [facility] [employer] Other 01-03-2023 11:30-0400 Diastolic blood pressure 75 mm[Hg] Carrie Staples Other [employer] Other 01-03-2023 11:30-0400 Respiratory rate 18 /min Carrie Staples Other [employer] Other 01-03-2023 11:30-0400 SaO2% (BldA) [Mass fraction] 95 % Carrie Staples Other [employer] Other 01-03-2023 11:30-0400 Systolic blood pressure 112 mm[Hg] Carrie Staples Other [employer] Other 02-14-2020 14:16-0400 BP Diastolic 79 mm[Hg] [facility] [place] 02-14-2020 14:16-0400 BP Systolic 118 mm[Hg] [place] 02-14-2020 14:16-0400 Pulse (Heart Rate) 87 /min [facility] [place] 02-14-2020 14:16-0400 Pulse Oximetry 97 % [place] 02-14-2020 13:29-0400 Body Temperature 97.39 [degF] [facility] [place] 02-14-2020 13:29-0400 Respiratory Rate 16 /min [facility] [place] Encounters Encounter Date Encounter Type Care Provider Facility Start: 12-06-2024 ambulatory Wendi X Orzech Facilit y:[facility] Start: 11-16-2024 End: 11-16-2024 Clinisync Result Encounter Generic External Data Provider [facility] External Department Unsolicited Start: 11-16-2024 End: 11-16-2024 Clinisync Result Encounter Generic External Data Provider [facility] External Department Unsolicited Start: 11-15-2024 End: 11-15-2024 Bamboo flowsheet Shavonne Chowdary FLUX PLANT OPERATOR Work Phone: [facility] Start: 11-15-2024 End: 11-15-2024 Bamboo flowsheet Shavonne Chowdary FLUX PLANT OPERATOR Work Phone: [facility] Start: 11-15-2024 End: 11-15-2024 Office outpatient visit 25 minutes Shavonne Chowdary FLUX PLANT OPERATOR Work Phone: [facility] Comment on above: Benign hypertension (CMS/HCC) (Primary Dx); SALVATORE on CPAP; Morbid (severe) obesity due to excess calories (CMS/HCC); SCOT (generalized anxiety disorder) (CMS/HCC); Lumbosacral spondylosis without myelopathy Start: 11-13-2024 End: 11-13-2024 Office outpatient visit 15 minutes Satya SANABRIA Work Phone: [facility] Comment on above: Lumbosacral spondylo sis without myelopathy (Primary Dx) Start: 11-13-2024 End: 11-13-2024 ambulatory SATYA IQBAL [facility] Start: 10-29-2024 End: 10-29-2024 Office outpatient visit 15 minutes Shavonne Chowdary FLUX PLANT OPERATOR Work Phone: [facility] Comment on above: Lumbosacral spondylo sis without myelopathy (Primary Dx); Benign hypertension (CMS/HCC); Morbid (severe) obesity due to excess calories (CMS/HCC) Start: 10-29-2024 End: 10-29-2024 ambulatory SHAVONNE CHOWDARY Not Available Start: 10-19-2024 End: 10-19-2024 ambulatory PARISH Escobedo WREN [facility] Start: 10-08-2024 End: 10-08-2024 ambulatory Wendi Watts Facility: [facility] Start: 10-08-2024 End: 10-08-2024 Patient encounter procedure Wendi Watts [facility] Start: 10-03-2024 ambulatory Shavonne mckeon BRINE PROCESS OPERATOR-HORSE BREAKER Facility:[facility] Start: 10-02-2024 End: 10-02-2024 Office outpatient visit 25 minutes Satya Iqbal PA Work Phone: [facility] Comment on above: Lumbosacral spondylo sis without myelopathy (Primary Dx) Start: 10-02-2024 End: 10-02-2024 ambulatory SATYA IQBAL [facility] Start: 10-01-2024 End: 10-01-2024 Office outpatient visit 15 minutes Shavonne Chowdary FLUX PLANT OPERATOR Work Phone: [facility] Comment on above: Lumbosacral spondylo sis without myelopathy (Primary Dx); Morbid (severe) obesity due to excess calories (CMS/HCC) Start: 10-01-2024 End: 10-01-2024 ambulatory SHAVONNE AICHHOLZ Not Available Start: 10-01-2024 End: 10-01-2024 Bamboo flowsheet Shavonne Chowdary FLUX PLANT OPERATOR Work Phone: [facility] Start: 10-01-2024 End: 10-01-2024 Bamboo flowsheet Shavonneangel Chowdary FLUX PLANT OPERATOR Work Phone: [facility] Start: 09-29-2024 End: 10-01-2024 Clinisync Result Encounter Generic External Data Provider [facility] External Department Unsolicited Start: 09-29-2024 End: 10-01-2024 Clinisync Result Encounter Generic External Data Provider [facility] External Department Unsolicited Start: 09-25-2024 End: 09-25-2024 Office outpatient visit 15 minutes Shavonne Chowdary FLUX PLANT OPERATOR Work Phone: [facility] Comment on above: COVID (Primary Dx); COPD with exacerbation (CMS/HCC); Morbid (severe) obesity due to excess calories (CMS/HCC); Body mass index (BMI) 40.0-44.9, adult (CMS/HCC); COPD mixed type (CMS/HCC) Start: 09-25-2024 End: 09-25-2024 ambulatory SHAVONNE AICHHOLZ Not Available Start: 09-25-2024 End: 09-25-2024 Bamboo flowsheet Shavonne Epi FLUX PLANT OPERATOR Work Phone: [facility] Start: 09-25-2024 End: 09-25-2024 Bamboo flowsheet Shavonne Chowdary FLUX PLANT OPERATOR Work Phone: [facility] Start: 09-17-2024 ambulatory Shavonne Deleon lz BRINE PROCESS OPERATOR-HORSE BREAKER Facility:[facility] Start: 09-13-2024 End: 09-13-2024 Bamboo flowsheet Shavonne Chowdary FLUX PLANT OPERATOR Work Phone: [facility] Start: 09-13-2024 End: 09-13-2024 Bamboo flowsheet Shavonne Chowdary FLUX PLANT OPERATOR Work Phone: [facility] Start: 09-13-2024 End: 09-13-2024 Office outpatient visit 25 minutes Shavonne Chowdary FLUX PLANT OPERATOR Work Phone: [facility] Comment on above: COPD with exacerbati on (CMS/HCC) (Primary Dx); Body mass index (BMI) 40.0-44.9, adult (CMS/HCC); Morbid (severe) obesity due to excess calories (CMS/HCC); Lumbosacral spondylosis without myelopathy; COPD mixed type (CMS/HCC); Wheezing Start: 09-13-2024 End: 09-13-2024 ambulatory SHAVONNE EPI Not Available Start: 09-05-2024 End: 09-05-2024 Office outpatient visit 25 minutes Shavonne Chowdary FLUX PLANT OPERATOR Work Phone: [facility] Comment on above: Benign hypertension (CMS/HCC) (Primary Dx); Morbid (severe) obesity due to excess calories (CMS/HCC); Body mass index (BMI) 40.0-44.9, adult (CMS/HCC); Essential (primary) hypertension (CMS/HCC); Upper respiratory tract infection, unspecified type; Lumbosacral spondylosis without myelopathy Start: 09-05-2024 End: 09-05-2024 ambulatory SHAVONNEAngel CHOWDARY Not Available Start: 09-05-2024 End: 09-05-2024 Bamboo flowsheet Shavonne Chowdary FLUX PLANT OPERATOR Work Phone: [facility] Start: 09-05-2024 End: 09-05-2024 Bamboo flowsheet Shavonne Chowdary FLUX PLANT OPERATOR Work Phone: [facility] Start: 07-16-2024 End: 07-16-2024 Refill Shavonne Chowdary FLUX PLANT OPERATOR Work Phone: [facility] Comment on above: Mild intermittent as thma with (acute) exacerbation (CMS/HCC) Start: 07-11-2024 End: 07-11-2024 Clinisync Result Encounter Generic External Data Provider [facility] External Department Unsolicited Start: 07-11-2024 End: 07-11-2024 Clinisync Result Encounter Generic External Data Provider [facility] External Department Unsolicited Start: 06-26-2024 End: 06-26-2024 Bamboo flowsheet Shavonne Chowdary FLUX PLANT OPERATOR Work Phone: [facility] Start: 06-26-2024 End: 06-26-2024 Bamboo flowsheet Shavonne Chowdary FLUX PLANT OPERATOR Work Phone: [facility] Start: 06-26-2024 End: 06-26-2024 ambulatory Wendi X Orzech Facility:[facility] Start: 06-26-2024 End: 06-26-2024 Patient encounter procedure Wendi X Orzech [facility] Start: 06-26-2024 End: 06-26-2024 ambulatory SHAVONNE CHOWDARY Not Available Start: 06-26-2024 End: 06-26-2024 Office outpatient visit 25 minutes Shavonne Chowdary FLUX PLANT OPERATOR Work Phone: [facility] Comment on above: Benign hypertension (CMS/HCC) (Primary Dx); SALVATORE on CPAP; Morbid obesity with body mass index (BMI) of 40.0 to 44.9 in adult (CMS/HCC); Needs flu shot; Mild persistent asthma with exacerbation (CMS/HCC); SCOT (generalized anxiety disorder) (CMS/[facility]); Ventral hernia without obstruction or gangrene Start: 06-20-2024 End: 06-20-2024 Clinisync Result Encounter Generic External Data Provider [facility] External Department Unsolicited Start: 06-20-2024 End: 06-20-2024 Clinisync Result Encounter Generic External Data Provider [facility] External Department Unsolicited Start: 05-16-2024 End: 05-16-2024 Refill Shavonne Chowdary [employer] O[employer] Work Phone: [facility] Comment on above: SCOT (generalized anx iety disorder) ([facility]); Other intervertebral disc degeneration, lumbar region Start: 04-26-2024 End: 04-27-2024 Refill Shavonne Epi [employer] OPERATOR Work Phone: [facility] Comment on above: Other intervertebral disc degeneration, lumbar region Start: 04-17-2024 End: 04-17-2024 Refill Shavonne Epi [employer] OPERATOR Work Phone: [facility] Comment on above: Essential (primary) hypertension ([facility]) Start: 04-12-2024 End: 04-13-2024 Clinisync Result Encounter Generic External Data Provider [facility] External Department Unsolicited Start: 04-12-2024 End: 04-13-2024 Clinisync Result Encounter Generic External Data Provider [facility] External Department Unsolicited Start: 02-21-2024 End: 02-21-2024 ambulatory SHAVONNE EPI Not Available Start: 02-21-2024 End: 02-21-2024 ambulatory Wendi X Mac Facility:[facility] Start: 02-21-2024 End: 02-21-2024 Patient encounter procedure Wendi Watts [facility] Start: 01-23-2024 End: 01-23-2024 ambulatory Javier HERRING Facility:[facility] Start: 01-23-2024 End: 01-23-2024 Patient encounter procedure Javier HERRING [facility] Start: 12-21-2023 End: 12-21-2023 ambulatory SHAIKH NATHALY Not Available Start: 12-05-2023 End: 12-05-2023 ambulatory Javier HERRING Facility:[facility] Start: 12-05-2023 End: 12-05-2023 Patient encounter procedure Javier HERRING [facility] Start: 09-29-2023 Bamboo flowsheet Shavonne Chowdary [employer] OPERATOR Work Phone: [facility] Start: 09-29-2023 Bamboo flowsheet Shavonne Chowdary [employer] OPERATOR Work Phone: [facility] Start: 09-29-2023 End: 09-29-2023 Office outpatient visit 25 minutes Shavonne Chowdary NP Work Phone: [facility] Comment on above: Benign hypertension (CMS/HCC) (Primary Dx); Morbid (severe) obesity due to excess calories (E66.01); Body mass index [BMI] 45.0-49.9, adult (Z68.42); Aortic aneurysm without rupture, unspecified portion of aorta (CMS/HCC); High cholesterol (CMS/HCC); SCOT (generalized anxiety disorder) (CMS/HCC); Screening for prostate cancer; Pre-diabetes; SALVATORE on CPAP; Mild persistent asthma with exacerbation (CMS/HCC); Lung nodule Start: 04-21-2023 Telephone encounter Rafael sandoval MD Work Phone: Cardiothoracic Comment on above: Referral Information Start: 03-28-2023 End: 03-28-2023 Patient encounter procedure Javier HERRING [facility] Start: 03-07-2023 End: 03-07-2023 Patient encounter procedure Javier HERRING [facility] Start: 01-18-2023 End: 01-18-2023 ambulatory DANIELE DRISCOLL . Facility:[facility] Start: 01-13-2023 End: 01-14-2023 ambulatory ADITHYA CHOWDARY Facility:[facility] Start: 01-03-2023 End: 01-03-2023 ambulatory Carrie Staples Other [place] Other Start: 01-03-2023 Office outpatient vi sit 15 minutes Carrie Staples [facility] Start: 09-01-2022 End: 09-02-[address] DOCTOR LOVE Facility:[facility] Start: 07-28-2022 End: 07-29-2022 ambulatory ADITHYA PETERSONAngel MINAAyaanAIDEMaame Facility:[facility] Start: 07-05-2022 End: 07-06-[address] DARIN CHAPA Facility:[facility] Start: 06-29-2022 End: 06-30-2022 ambulatory ADITHYA CHOWDARY Facility:[facility] Start: 03-03-2022 End: 03-04-2022 ambulatory ADITHYA CHOWDARY Facility:[facility] Start: 02-23-2022 End: 02-24-2022 ambulatory ADITHYA CHOWDARY Facility:[facility] Start: 02-14-2020 End: 02-14-2020 Emergency department patient visit [facility] Start: 02-14-2020 End: 02-14-2020 Emergency department patient visit [facility] Work Phone: [facility] Comment on above: Dyspnea and respirat ory abnormalities (Primary Dx) Start: 08-28-2014 End: 08-28-2014 Telephone encounter Italo Pruitt MD Work Phone: Orthopaedics Comment on above: Surgical Followup Procedures Date Procedure Procedure Detail Performing Clinician Start: 11-16-2024 ALL CBC WITH AUTO DIFF Generic External Data Provider Start: 09-29-2024 ALL TESTOSTERONE Generi c External Data Provider Start: 07-11-2024 ALL CBC WITH AUTO DIFF Generic External Data Provider Start: 06-20-2024 ALL HGB HCT Generic Ex ternal Data Provider Start: 04-12-2024 ALL TESTOSTERONE Generi c External Data Provider Start: 06-29-2022 PSA screening HORSE BREAKER SHAVONNE CHOWDARY Comment on above: Performed By: #### P [facility] ####[facility] [id number] [place], [place] [address]HxSohail Beck Start: 02-14-2020 Radiologic exam ches t 2 views JOSHUA JORDAN Start: 02-14-2020 Radiologic exam ches t 2 views Joshua Fanny Perez Work Phone: Cooled radiofrequenc y ablation of nerve using ultrasonographic guidance Javier HERRING Hydrocelectomy Javier VARNER S Knee region structur e (body structure) Javier HERRING Large intestine excision Ligia je NEVAEH Shoulder region stru cture (body structure) Javier NEVAEH Plan of Treatment Date Care Activity Detail Author Start: 11-13-2025 Tobacco Screening Tobacco Screening [facility] Start: 10-02-2025 Adult BMI Screening Adult BMI Screen ing [facility] Start: 10-02-2025 Tobacco Screening Tobacco Screening [facility] Start: 01-02-2025 End: 01-02-2025 Patient encounter procedure 01/02/2025 9:40 AM EDT Office Visit [facility] [address] [place] [phone] Shavonne Chowdary, AJIT [address] [place] [phone] [facility] Start: 12-24-2024 End: 12-24-2024 Patient encounter procedure 12/24/2024 9:40 AM EDT Office Visit [facility] [address] [place] [phone] Shavonne Chowdary NP [address] [place] [phone] [facility] Start: 11-15-2024 End: 11-15-2024 Patient encounter procedure 11/15/2024 1:00 PM EDT Office Visit [facility] [address] [place] [address] Shavonne Chowdary, FLUX PLANT OPERATOR [address] [place] [address] [facility] Start: 11-13-2024 End: 11-13-2024 Patient encounter procedure 11/13/2024 1:15 PM EDT Office Visit [facility] [address] [place] [phone] Satya Iqbal PA [address] [place], [place] [phone] [facility] Start: 10-29-2024 End: 10-29-2024 Patient encounter procedure 10/29/2024 1:40 PM EDT Office Visit [facility] [address] [place] [address] Shavonne Chowdary, FLUX PLANT OPERATOR [address] [place] [address] [facility] Start: 10-19-2024 End: 10-19-2024 Admission to same day surgery center 10/19/2024 2:00 PM EST - 10/19/2024 2:12 PM EST Surgery [facility] [address] [place] [phone] Parish Wren MD [address] [place], [place] [phone] RADIOFREQUENCY ABLATION SPINAL: right L45 51rfa [63687 (CPT )] [facility] Comment on above: RADIOFREQUENCY ABLAT ION SPINAL: right L45 51rfa [36164 (CPT )] Start: 10-19-2024 End: 10-19-2024 Dstr nrolytc agnt parverteb fct sngl lmbr/sacral RADIOFREQUENCY ABLATION SPINAL Lumbosacral spondylosis without myelopathy 10/19/2024 2:00 PM EST [facility] Start: 10-19-2024 Subsequent hospital visit by physician 10/19/2024 2:00 PM EST Hospital Encounter [facility] [address] [facility] [place] [phone] Parish Wren MD [address] [facility], [place] [phone] [facility] Start: 10-01-2024 End: 10-01-2024 Patient encounter procedure 10/01/2024 3:20 PM EST Office Visit [facility] [address] [place] [address] Shavonne Chowdary, AJIT [address] [place] [address] Arrived [facility] Comment on above: Arrived Start: 09-25-2024 End: 09-25-2024 Patient encounter procedure [facility] Comment on above: COPD with exacerbati on (CMS/HCC) (Primary Dx); Morbid (severe) obesity due to excess calories (CMS/HCC); Body mass index (BMI) 40.0-44.9, adult (CMS/HCC); COVID; COPD mixed type (CMS/HCC) Start: 09-13-2024 End: 09-13-2025 XR Chest 2 Views XR chest 2 views Imaging STAT COPD mixed type (CMS/HCC) COPD with exacerbation (CMS/HCC) Wheezing Expected: 09/13/2024 (Approximate), Expires: 09/13/2025 [facility] Work Phone: Comment on above: Expected: 09/13/2024 (Approximate), Expires: 09/13/2025 Start: 09-05-2024 End: 09-05-2024 Patient encounter procedure 09/05/2024 2:20 PM EST Office Visit [facility] [address] [place] [address] Shavonne Chowdary, AJIT [address] [place] [phone] Benign hypertension (CMS/HCC) (Primary Dx); Morbid (severe) obesity due to excess calories (CMS/HCC); Body mass index (BMI) 40.0-44.9, adult (CMS/HCC) [facility] Comment on above: Benign hypertension (CMS/HCC) (Primary Dx); Morbid (severe) obesity due to excess calories (CMS/HCC); Body mass index (BMI) 40.0-44.9, adult (CMS/HCC) Start: 06-26-2024 End: 06-26-2024 Patient encounter procedure 06/26/2024 9:20 AM EST Office Visit [facility] [address] [place] [address] Shavonne Chowdary, FLUX PLANT OPERATOR [address] [place] [phone] [facility] Start: 12-28-2023 End: 12-28-2023 Patient encounter procedure 12/28/2023 1:00 PM EDT Office Visit [facility] [address] [place] [address] Shavonne Chowdary, FLUX PLANT OPERATOR [address] [place] [phone] [facility] Start: 09-29-2023 End: 09-29-2024 CBC W Auto Differential panel - Blood CBC and differential Lab Routine Benign hypertension (CMS/HCC) Expected: 09/29/2023 (Approximate), Expires: 09/29/2024 [facility] Work Phone: Comment on above: Expected: 09/29/2023 (Approximate), Expires: 09/29/2024 Start: 09-29-2023 End: 09-29-2024 Comprehensive metabolic 2000 panel - Serum or Plasma Comprehensive metabolic panel Lab Routine Pre-diabetes Expected: 09/29/2023 (Approximate), Expires: 09/29/2024 [facility] Comment on above: Expected: 09/29/2023 (Approximate), Expires: 09/29/2024 Start: 09-29-2023 End: 09-29-2024 Hemoglobin A1c measurement Hemoglobin A1c Lab Routine Pre-diabetes Expected: 09/29/2023 (Approximate), Expires: 09/29/2024 [facility] Comment on above: Expected: 09/29/2023 (Approximate), Expires: 09/29/2024 Start: 09-29-2023 End: 09-29-2024 Lipid 1996 panel - Serum or Plasma Lipid panel Lab Routine High cholesterol (CMS/HCC) Expected: 09/29/2023 (Approximate), Expires: 09/29/2024 [facility] Comment on above: Expected: 09/29/2023 (Approximate), Expires: 09/29/2024 Start: 09-29-2023 End: 09-29-2024 Microalbumin/Creatinine panel in random Urine Microalbumin / creatinine, urine ratio Lab Routine Benign hypertension (CMS/HCC) Pre-diabetes Expected: 09/29/2023 (Approximate), Expires: 09/29/2024 [facility] Comment on above: Expected: 09/29/2023 (Approximate), Expires: 09/29/2024 Start: 09-29-2023 End: 09-29-2024 Prostate specific Ag [Mass/volume] in Serum or Plasma PSA Lab Routine Screening for prostate cancer Expected: 09/29/2023 (Approximate), Expires: 09/29/2024 [facility] Comment on above: Expected: 09/29/2023 (Approximate), Expires: 09/29/2024 Start: 09-29-2023 End: 09-29-2024 Urinalysis complete panel - Urine Urinalysis with reflex microscopic (clean catch) Lab Routine Benign hypertension (CMS/HCC) Pre-diabetes Expected: 09/29/2023 (Approximate), Expires: 09/29/2024 [facility] Comment on above: Expected: 09/29/2023 (Approximate), Expires: 09/29/2024 Start: 04-22-2023 Influenza vaccination Influenza Vacc ine (#1) [facility] Start: 08-22-2022 Depression Assessment Depression Ass essment [facility] Start: 2021 Prostate Cancer Screening Discussion Prostate Cancer Screening Discussion [facility] Start: 04-22-2021 Influenza vaccination INFLUENZA (Sea son Ended) [facility] Start: 04-22-2020 Influenza vaccination Flu vacc ine (Season Ended) [place], [place] Start: 2016 Administration of varicella zoster vaccine Zoster (Shingles) Vaccine (1 of 2) [facility] Start: 2016 Screening for malign ant neoplasm of colon [place], [place] Start: 2016 Shingles Vaccine (1 of 2) Shingles Vaccine (1 of 2) [place] Start: 2016 SHINGRIX VACCINE (1 of 2) SHINGRIX VACCINE (1 of 2) [facility] Start: 2011 Cologuard (FIT-DNA) Cologuard (FIT-D NA) [facility] Start: 2011 Colonoscopy Colonoscopy [facility] Start: 2011 Colorectal Cancer Screening Colorectal Cancer Screening [facility] Start: [address] COLONOGRAPHY [facility] Start: 2011 DIABETES SCREEN DIABETES SCREEN [facility] Start: 2011 Diabetes Screening Diabetes Screenin g [facility] Start: 2011 Fecal Occult Blood Fecal Occult Bloo d [facility] Start: 2011 SIGMOIDOSCOPY SIGMOIDOSCOPY [facility] Start: 2006 Lipid panel Lipid screen [place], [place] Start: 2001 Lipid 1996 panel - S dayanara or Plasma Lipid Screening [facility] Start: 2001 LIPID SCREEN LIPID SCREEN [facility] Start: 1985 DTaP,Tdap and Td Vaccines (1 - Tdap) DTaP,Tdap and Td Vaccines (1 - Tdap) [facility] Start: 1985 DTaP/Tdap/Td vaccine (1 - Tdap) DTaP/Tdap/Td vaccine (1 - Tdap) [place], [place] Start: 1985 Urine microalbumin profile [facility] Start: 1984 Adult BMI Follow Up Plan Adult BMI F ollow Up Plan [facility] Start: 1984 HEPATITIS C SCREENING HEPATITIS C SC REENING [facility] Start: 1984 HIV SCREENING HIV SCREENING [facility] Start: 1981 HIV screening HIV screen [place], [place] Start: 1978 Adult depression screening assessment DEPRESSION SCREENING [facility] Start: 1966 Covid-19 Vaccine (#1) Covid-19 Vacci ne (#1) [facility] Start: 1966 Creatinine measurement Creatinine mo nitoring [place], [place] Start: 1966 Hepatitis B Vaccine (1 of 3 - 3-dose series) Hepatitis B Vaccine (1 of 3 - 3-dose series) [facility] Start: 1966 Potassium monitoring Potassium monit oring [place], [place] Start: 1966 Tobacco Counseling Tobacco Counselin zach [facility] Immunizations Immunization Date Immunization Notes Care Provider Claire jimenez 06-26-2024 influenza virus vaccine, unspecified formulation Wendi Watts [facility] Comment on above: Result Comment: 2023: PT TOLERATED INJECTION WELL WITH OUT NO ADVERSE REACTION DURING PROCEDURE 06-26-2024 Influenza, injectabl e, Madin [place] Canine Kidney, preservative free, quadrivalent Shavonne Aichholz [employer] PLANT OPERATOR Work Phone: [facility] 07-02-2020 influenza virus vaccine, unspecified formulation Javier HERRING [facility] 07-02-2020 Influenza, Seasonal, Quadrivalent, Adjuvanted Shavonne Aichholz FLUX PLANT OPERATOR Work Phone: [facility] Payers Date Payer Category Payer Blue Cross Blue Shield BCBS [id number] 2014 [facility] Managed Care - Other [place] [id number] 2014 Unknown BCBS BCBS OUT OF STATE xxxxxxxxxxxx 2014-Present [address] [place] [address] xxxxxxxxxxxx [id number]. [id number] 2004 Unknown [id number] 1.2.840.772187.1.13.159. 2.7.3.661813.315 2004 Unknown [id number]. 1.13.159. 2.7.3.560508.315 1966 Unknown [id number] 2.16.840.1.788672.3.579. 2.173 1966 Unknown [id number] 2.16.840.1.407209.3.579. 2.593 1966 Unknown [id number] 2.16.840.1.899017.3.579. 2.593 1966 Unknown [id number] 2.16.840.1.230277.3.579. 2.593 1966 Unknown [id number] 2.16.840.1.376047.3.579. 2.593 1966 Unknown [id number] 2.16.840.1.305693.3.579. 2.593 1966 Unknown [id number] 2.16.840.1.810707.3.579. 2.593 1966 Unknown [id number] 2.16.840.1.828762.3.579. 2.593 1966 Unknown [id number] 2.16.840.1.066300.3.579. 2.593 1966 Unknown [id number] 2.16.840.1.781168.3.579. 2.196 1966 Unknown [id number] 2.16.840.1.558241.3.579. 2.196 1966 Unknown [id number] 2.16.840.1.274586.3.579. 2.727 1966 Unknown [id number] 2.16.840.1.481224.3.579. 2.727 1966 Unknown [id number] 2.16.840.1.366521.3.579. 2.727 1966 Unknown [id number] 2.16.840.1.998638.3.579. 2.727 1966 Unknown [id number] 2.16.840.1.158715.3.579. 2.727 1966 Unknown [id number] 2.16.840.1.855409.3.579. 2.727 1966 Unknown [id number] 2.16.840.1.145927.3.579. 2.1259 1966 Unknown [id number] 2.16.840.1.030622.3.579. 2.1259 1966 Unknown [id number] 2.16.840.1.096372.3.579. 2.1259 1966 Unknown [id number] 2.16.840.1.394636.3.579. 2.1259 1966 Unknown [id number] 2.16.840.1.953833.3.579. 2.1259 1966 Unknown [id number] 2.16.840.1.621911.3.579. 2.1259 1966 Unknown [id number] 2.16.840.1.198945.3.579. 2.1259 1966 Unknown [id number] 2.16.840.1.821118.3.579. 2.1259 1966 Unknown [id number] 2.16.840.1.017958.3.579. 2.1286 1966 Unknown [id number] 2.16.840.1.688639.3.579. 2.1286 1966 Unknown [id number] 2.16.840.1.761065.3.579. 2.1286 1966 Unknown [id number] 2.16.840.1.944127.3.579. 2.1286 1959 Unknown [id number] Social History Date Type Detail Facility Start: 02-14-2020 End: 12-21-2023 Tobacco smoking status NHIS Former smoker [facility] History of tobacco use Cigarette Smoker [place], [place] Start: 1966 Sex Assigned At Not on file [place], [place] Exposure to SARS-CoV -2 (event) Unable to assess [place] Start: 07-30-2014 Tobacco smoking status NHIS Current every day smoker [facility] Start: 07-30-2014 End: 09-29-2023 Cigarettes smoked current (pack per day) - Reported [facility] Start: 07-30-2014 Tobacco use and exposure Never used [facility] Start: 07-30-2014 End: 11-15-2024 Alcohol intake Current drinker of alcohol (finding) [facility] Start: 07-30-2014 Alcohol Comment social [facility] Start: 08-24-2023 End: 09-29-2023 Sex Assigned At [facility] Tobacco smoking status Never [facility] History of tobacco use Current smoker [facility] Start: 09-27-2023 Alcohol Comment monthly or less, caffeine more than 4 cups per day [facility] Within the last year , have you been afraid of your partner or ex-partner? No [facility] Do you belong to any clubs or organizations such as christianity groups, betaworkss, fraCrazidea or athletic groups, or school groups? Yes [...] Healthcare Start: 1965 Sex assigned at Male [facility] Start: 05-28-2024 Gender identity Identifies as male gender (finding) [facility] Start: 05-28-2024 Sexual orientation Heterosexual (finding) [facility] Start: 09-09-2022 Tobacco use and exposure User of smokeless tobacco [facility] Start: 09-09-2022 Tobacco Comment Quit smoking 1 year agoUses oral nicotine lozenges [facility] Start: 05-01-2018 Alcohol Comment Socially [facility] Start: 03-27-2015 Sex Male (finding) [facility] Functional Status Date Assessment Result Facility 10-08-2024 Functional Status N/A [facility] 06-26-2024 Functional Status N/A [facility] 02-21-2024 Functional Status N/A [facility] 12-05-2023 Functional Status N/A [facility] 03-28-2023 Functional Status N/A [facility] 03-07-2023 Functional Status N/A [facility] Clinical Notes 08-28-2014 to 11-15-2024 Shavonne Chowdary NP - 11/15/2024 1:28 PM FRANKLIN CHING - 11/15/2024 1:00 PM Danish Chowdary NP - 11/15/2024 1:00 PM Danish Chowdary NP - 11/15/2024 6:43 AM EDTPatient Instructions Note Date & Type Note Facility 11-15-2024 History of Present illness Narrative Associated Problem(s): Lumbosacral spondylosis without myelopathy Was last seen for this condition by me approx 1 month ago He is also under the care of [facility] Had RFA procedure 10/19/24 Pain levels 3-4/10 Will RTW no restrictions as of 11/19/24 Pt RTW Sunday 11/19 Marcel Wahl is a 59 y.o. male presents with chief complaint of No chief complaint on file. HPI: Here for fu long standing chronic back pain, daily for years exacerbations happen He has had injections with [facility] as well While he still has pain, he does feel he can RTW : would like 11/19/24 Hypertension This is a chronic problem. The current episode started more than 1 year ago. The problem is unchanged. The problem is controlled. Associated symptoms include anxiety. Pertinent negatives include no blurred vision, chest pain, headaches, palpitations, peripheral edema or shortness of breath. There are no associated agents to hypertension. Risk factors for coronary artery disease include dyslipidemia, obesity, male gender and sedentary lifestyle. Past treatments include diuretics and OSMAR inhibitors. The current treatment provides significant improvement. There are no compliance problems. There is no history of kidney disease, CAD/VT or heart failure. Anxiety Presents for follow-up visit. Patient reports no chest pain, decreased concentration, depressed mood, dizziness, excessive worry, insomnia, irritability, nausea, nervous/anxious behavior, palpitations, shortness of breath or suicidal ideas. Symptoms occur occasionally. The severity of symptoms is mild. The patient sleeps 8 hours per night. The quality of sleep is good. Nighttime awakenings: none. Compliance with medications is 76-100%. SUBJECTIVE: MEDICATIONS: Current Outpatient Medications Medication Instructions albuterol HFA 90 mcg/act inhaler 2 puffs, Inhalation, Every 6 hours PRN albuterol 2.5 mg, Nebulization, Every 6 hours PRN amitriptyline (ELAVIL) 50 mg, Oral, Nightly busPIRone (BUSPAR) 10 mg, Oral, [...] Systems Constitutional: Negative for activity change, appetite change, chills, fatigue, fever, irritability and unexpected weight change. HENT: Negative for congestion, ear pain, nosebleeds, rhinorrhea, sinus pressure, sneezing, sore throat, trouble swallowing and voice change. Eyes: Negative for blurred vision, pain, discharge and visual disturbance. Respiratory: Negative for apnea, cough, chest tightness, shortness of breath and wheezing. Cardiovascular: Negative for chest pain, palpitations and leg swelling. Gastrointestinal: Negative for abdominal distention, abdominal pain, blood in stool, constipation, diarrhea, nausea and vomiting. Genitourinary: Negative for decreased urine volume, difficulty urinating, dysuria, flank pain and hematuria. Musculoskeletal: Positive for arthralgias and back pain. Negative for joint swelling and myalgias. Skin: Negative for color change, rash and wound. Neurological: Negative for dizziness, tremors, seizures, weakness, numbness and headaches. Psychiatric/Behavioral: Negative for agitation, decreased concentration, hallucinations, self-injury, sleep disturbance and suicidal ideas. The patient is not nervous/anxious and does not have insomnia. Hematological: Negative for adenopathy. Does not bruise/bleed easily. Endocrine: Negative for cold intolerance, heat intolerance, polydipsia, polyphagia and polyuria. Allergic/Immunologic: Negative for environmental allergies and food allergies. PAST MEDICAL HISTORY Past Medical History: Diagnosis Date Aortic aneurysm without rupture, unspecified portion of aorta ([facility]) 09/28/2023 Benign hypertension ([facility]) 09/28/2023 BPH associated with nocturia 09/28/2023 COVID-19 virus infection Diverticulitis DJD of right shoulder Erectile dysfunction of organic origin SCOT (generalized anxiety disorder) ([facility]) 08/18/2023 High cholesterol ([facility]) 09/28/2023 Insomnia Mild persistent asthma with exacerbation ([facility]) 09/28/2023 Controlled with singulair. Does not need rescue inhaler Morbid obesity with body mass index (BMI) of 40.0 to 44.9 in adult ([facility]) 09/28/2023 SALVATORE on CPAP 09/28/2023 Osteoarthritis [...] in his father. OBJECTIVE: Visit Vitals BP 118/78 (BP Location: Left arm, Patient Position: Sitting, BP Cuff Size: Large adult) Pulse 76 Temp 98.4 F (Temporal) Resp 18 Wt 294 lb 6.4 oz SpO2 97% BMI 42.24 kg/m Smoking Status Former BSA 2.57 m Physical Exam Vitals and nursing note [...] sounds: Normal breath sounds. No wheezing or rhonchi. Abdominal: General: Bowel sounds are normal. Palpations: Abdomen is soft. Tenderness: There is no abdominal tenderness. Musculoskeletal: Cervical back: Neck supple. Right lower [...] ASSESSMENT AND PLAN: Follow up in about 3 months (around 02/15/2025) for Recheck. Problem List Items Addressed This Visit SCOT (generalized anxiety disorder) (CMS/HCC) Continues with taking buspar BID, helps with symptoms No adjustments needed at this time No SI/HI/Hallucinations SCOT 7 =3 Lumbosacral spondylosis without myelopathy Was last seen for this condition by me approx 1 month ago He is also under the care of [facility]'s pain mgmt Had RFA procedure 10/19/24 Pain levels 3-4/10 Will RTW no restrictions as of 11/19/24 SALVATORE on CPAP You have a diagnosis of obstructive sleep apnea. It is recommended that you wear your PAP device any time while in bed sleeping. Not using the PAP device can increase your risk of elevated/uncontrolled high blood pressure, atrial fibrillation, heart attack, stroke, or sudden . Compliance with PAP:yes How many hours of use per night:8 hours Do you feel more refreshed in the morning: yes Company that supplies your machine and tubing/filters etc:[employer] Doctor that manages your SALVATORE: PCP Benign hypertension ([facility]/HCC) - Primary Please check blood pressure daily [...] contraindicated). Limit sodas, juices, and sugary drinks. 20 pounds lost in last few months , keep up the good work Associated Problem(s): SCOT (generalized anxiety disorder) (CMS/HCC) Continues with taking buspar BID, helps with symptoms No adjustments needed at this time No SI/HI/Hallucinations SCOT 7 =3 Associated Problem(s): Morbid (severe) obesity due to excess calories (CMS/HCC) Discussed with patient their BMI (actual, verses recommended). We have also discussed lifestyle modifications: attempts to perform physical activity as chronic conditions allow, also to monitor dietary intake: increasing protein/fruits/veggies and lowering carb intake (unless contraindicated). Limit sodas, juices, and sugary drinks. 20 pounds lost in last few months , keep up the good work Associated Problem(s): Benign hypertension (CMS/HCC) Please check blood pressure daily and record DASH diet Limit caffeine Take medication as directed Contact office if chest pain, pressure, dizziness, shortness of breath, swelling legs Recommend slow position changes Current meds: lisinopril/HCTZ Associated Problem(s): SALVATORE on CPAP You have a diagnosis of obstructive sleep apnea. It is recommended that you wear your PAP device any time while in bed sleeping. Not using the PAP device can increase your risk of elevated/uncontrolled high blood pressure, atrial fibrillation, heart attack, stroke, or sudden . Compliance with PAP:yes How many hours of use per night:8 hours Do you feel more refreshed in the morning: yes Company that supplies your machine and tubing/filters etc:[employer] Doctor that manages your SALVATORE: PCP documented in this encounter [facility] 11-15-2024 Instructions Shavonne Chowdary NP - 11/15/2024 1:00 PM EDT No medication dose changes documented in this encounter [facility] 11-13-2024 History of Present illness Narrative [facility] [address] [place] [id number] Patient: Marcel Wahl Sex: male : 1965 Age: 59 y.o. PCP: SHAVONNE CHOWDARY, BRINE PROCESS OPERATOR-HORSE BREAKER 11/13/2024 Marcel Wahl is here for a(n) post procedure follow up right L4/5 5/1 RFA with 80% relief that continues. Patient reports feeling better since having RFA. Currently rates pain a 3/10, but can increase with ambulation. Date of onset of pain: 2021 , pain has lasted greater than 3 months. Pain scale before treatment: 8/10 Percentage and duration of relief after treatment: 80% relief that continues Pain scale after treatment: 3/10 Chief Complaint Patient presents with Back Pain HPI: 09/24/2022 bilateral L 4/5, L5/S1 Medial Branch Block with 80% relief x 5 hours 10/29/22 Apollo L 4/5 5/1 MBB w/100% relief for 1 day 03/04/2023 right L 4/5, L/5S1 Radiofrequency Abalation with 70 % relief 10/19/24 Right L4/5 5/1 RFA 80% relief that continues Back Pain This is a chronic problem. The current episode started more than 1 year ago (approx 2021). The problem occurs constantly. The problem has been gradually improving (since RFA) since onset. The pain is present in the lumbar spine and gluteal (right hip). The quality of the pain is described as aching (sharp). The pain does not radiate. The pain is at a severity of 3/10 (can increase depending on activity). The pain is moderate. The pain is The same all the time (fluctuates with activity). The symptoms are aggravated by bending and standing (walking, stairs, walking, leaning on cart). Stiffness is present: na. Associated symptoms include weakness (RLE with ambulation). Pertinent negatives include no abdominal pain, bowel incontinence, chest pain, fever, leg pain, numbness or tingling. (Patient reports that back pain increases with prolonged standing. He states increased pain and weakness to right hip ambulating ) Risk factors include obesity. He has tried NSAIDs, muscle relaxant, chiropractic manipulation and home exercises (flexeril mod relief, IBU, etodolac- no relief ;Just prescribed Gabapentin and nabumetone; to start PT(08/2022) ; hx of injections with significant relief; Marijuana daily with mild relief ) for the symptoms. The treatment provided moderate relief. The effect of pain on patient's ADLS: Moderate Impairment. Past Medical History: Diagnosis Date Asthma Chronic back pain Diverticulitis hx of Enlarged prostate Hypertension Low back pain Neck pain Obesity Obstructive sleep apnea treated with continuous positive airway pressure (CPAP) Osteoarthritis Rheumatoid arthritis (CMS-HCC) Right knee meniscal tear hx Sleep apnea CPAP HS Past Surgical History: Procedure Laterality Date ADVANCEMENT / RECONSTRUCTION POSTERIOR TIBIAL TENDON / KIDNER Right 2007 Right foot and posterior tendon reconstruction ANKLE SURGERY Right tendon transplant COLECTOMY DENTAL SURGERY HYDROCELECTOMY INJECTION BLOCK NERVE MEDIAL BRANCH: bilat L 4/5 5/1 Bilateral 10/29/2022 Performed by Parish Wren MD at [facility] INJECTION BLOCK NERVE MEDIAL BRANCH: bilat L 4/5 5/1 Bilateral 09/24/2022 Performed by Parish Wren MD at [facility] KNEE ARTHROSCOPY Right RADIOFREQUENCY ABLATION SPINAL: right L 4/5 5/1 Right 03/04/2023 Performed by Parish Wren MD at [facility] RADIOFREQUENCY ABLATION SPINAL: right L 4/5, 5/1 Right 10/19/2024 Performed by Parish Wren MD at [facility] RIGHT L3/4, 4/5, 5/1 MEDIAL BRANCH NERVE BLOCK 2 OF 2 Right 05/22/2018 Performed by Parish Wren MD at [facility] RIGHT L3/4, 4/5, 51 MEDIAL BRANCH NERVE BLOCK 1 OF 2 Right 05/08/2018 Performed by Parish Wren MD at [facility] TOTAL SHOULDER REPLACEMENT Right 2021 Allergies Allergen Reactions Penicillins Shortness Of Breath Demerol [Meperidine] Hallucinations Morphine (Pf) Hallucinations Family History Problem Relation Age of Onset Aneurysm Mother Heart disease Father Social History Socioeconomic History Marital status: Spouse name: Not on file Number of children: Not on file Years of education: Not on file Highest education level: Not on file Occupational History Not on file Tobacco Use Smoking status: Former Smokeless tobacco: Current Tobacco comments: Quit smoking 1 year ago Uses oral nicotine lozenges Vaping Use Vaping status: Never Used Substance and Sexual Activity Alcohol use: Yes Comment: Socially Drug use: Yes Types: Marijuana Comment: Daily Use Sexual activity: Defer Other Topics Concern Not on file Social History Narrative Not on file Social Drivers of Health Financial Resource Strain: Low Risk (09/29/2023) Received from [facility] Overall Financial Resource Strain (CARDIA) Difficulty of Paying Living Expenses: Not hard at all Food Insecurity: No Food Insecurity (11/13/2024) Hunger Screening Food Insecurity - Worry: Never True Food Insecurity - Inability: Never True Transportation Needs: No Transportation Needs (09/29/2023) Received from [facility] PRAPARE - Transportation Lack of Transportation (Medical): No Lack of Transportation (Non-Medical): No Physical Activity: Inactive (09/29/2023) Received from [facility] Exercise Vital Sign Days of Exercise per Week: 0 days Minutes of Exercise per Session: 0 min Stress: Stress Concern Present (09/29/2023) Received from [facility] [employer] - Occupational Stress Questionnaire Feeling of Stress : To some extent Social Connections: Moderately Integrated (09/29/2023) Received from [facility] Social Connection and Isolation Panel [NHANES] Frequency of Communication with Friends and Family: Twice a week Frequency of Social Gatherings with Friends and Family: Once a week Attends Scientologist Services: Never Active Member of Clubs or Organizations: Yes Attends Club or Organization Meetings: 1 to 4 times per year Marital Status: Interpersonal Safety: Not At Risk (09/29/2023) Received from [facility] Humiliation, Afraid, Rape, and Kick questionnaire Fear of Current or Ex-Partner: No Emotionally Abused: No Physically Abused: No Sexually Abused: No Housing Instability: Low Risk (09/29/2023) Received from [facility] Housing Stability Vital Sign Unable to Pay for Housing in the Last Year: No Number of Places Lived in the Last Year: 1 Unstable Housing in the Last Year: No Review of Systems Constitutional: Negative. Negative for chills and fever. HENT: Negative. Negative for congestion and sore throat. Eyes: Negative. Respiratory: Negative. Cardiovascular: Negative. Negative for chest pain. Gastrointestinal: Negative. Negative for abdominal pain and bowel incontinence. Endocrine: Negative. Genitourinary: Negative. Musculoskeletal: Positive for back pain. Skin: Negative. Allergic/Immunologic: Negative. Neurological: Positive for weakness (RLE with ambulation). Negative for tingling and numbness. Hematological: Negative. Psychiatric/Behavioral: Negative. Vital Signs: BP (!) 121/97 (BP Site: Right Arm, BP Postition: Sitting) Pulse 78 Resp 18 Physical Exam: GENERAL - Healthy patient that appears stated age. HEENT - Normocephalic / Atraumatic, Extraoccular movements intact, trachea midline, thyroid within normal limits. CV - pulse regular, Warm extremities with appropriate color of nailbeds. RESP - No obvious wheezing, No Shortness of Breath, No overexertion response to exam maneuvers. COORDINATION - remains intact. PSYCH - Alert and Oriented x4, Attentive and appropriate, constitutionally normal, displays normal mood and affect per situation, answered questions appropriately during examination, demonstrated appropriate attention during discussion, demonstrated appropriate cognitive reasoning and understanding of the medical condition by asking appropriate questions regarding the diagnosis and risks/benefits/alternatives of treatment modalities. No obvious deficits in memory, reasoning, or intellect. Lumbar: SKIN - No rashes or bruising in the area of the patient s pain. LYMPH NODES - demonstrate no obvious enlargement. EXTREMITIES - Lower extremities are warm, with minimal edema and palpable pulses. No significant tenderness to palpation noted in the lumbar spine and paraspinal musculature. Mild pain is elicited with flexion, extension, and lateral rotation of the lumbar spine. Range of motion is not diminished with these motions. Facet palpation is negative for significant pain and facet loading maneuvers elicit only mild pain that is not concordant with the patient s normal pain complaints. STRENGTH - noted to be 5 out of 5 all muscle groups bilateral lower extremities including muscles involving hip flexion and abduction, knee flexion and extension, as well as foot dorsiflexion and plantarflexion. No notable atrophy, fasciculations or spasm. SENSORY - No notable sensory deficits in the bilateral lower extremities to touch or pinprick in all dermatomal distributions. Straight Leg Raise is negative bilaterally. Gait is normal. Assessment/Treatment Plan: Marcel was seen today for back pain. Diagnoses and all orders for this visit: Lumbosacral spondylosis without myelopathy Monitor Follow up as needed. The medications I have prescribed have been reviewed for medication interactions/contraindications and/or for upcoming procedures: continue current medication regimen without any changes. DISCUSSION: Treatment options discussed with patient and all questions answered to patient's satisfaction. Discussed the rules and regulations surrounding prescription of opioids and compliance at length. Failure to follow the rules and regulation will result in tapering and discontinuation of medications if applicable. It does appear that the patient benefited from the previous injection and the benefit has continued through this visit. At this time, we will monitor the patient s symptoms from an interventional standpoint and consider another injection in the future if the patient s symptoms return or intensify severely. The patient was made aware that they should call if symptoms worsen or if their pain begins to have a negative impact on their quality of life and activities of daily living again. Prescribed medication that requires intensive monitoring for toxicity: We do not currently prescribe any controlled substance from this practice. The spine model was demonstrated and MRI was reviewed and used to explain the condition. OARRS: Reviewed. Follow up as needed. Scribe Statement: ITawanna RN, scribed for and in the presence of DANIELE KHAN who performed the above service. Tawanna Tipton RN 11/13/24 1342 DANIELE Khan 11/13/24 1525 documented in this encounter [facility] 10-29-2024 History of Present illness Narrative Images from the original note were not included. Marcel Wahl is a 59 y.o. male presents with chief complaint of No chief complaint on file. HPI: Here for a recheck, lumbar back pain Had RFA about 10 days ago, pain levels 5/10 No new pain patterns Pain sharp/throbbing/achy, radiates to right hip and testicle region Next fu with Pain Mmgt 11/13/24 Is trying to loose weight as well Takes NSAID for pain SUBJECTIVE: MEDICATIONS: Current Outpatient Medications Medication Instructions albuterol HFA 90 mcg/act inhaler 2 puffs, Inhalation, Every 6 hours PRN albuterol 2.5 mg, Nebulization, Every 6 hours PRN amitriptyline (ELAVIL) 50 mg, Oral, Nightly busPIRone (BUSPAR) 10 mg, Oral, [...] visual disturbance. Respiratory: Negative for apnea, chest tightness and wheezing. Cardiovascular: Negative for leg swelling. [...] aneurysm without rupture, unspecified portion of aorta ([facility]) 09/28/2023 Benign hypertension ([facility]) 09/28/2023 BPH associated with nocturia 09/28/2023 COVID-19 virus infection Diverticulitis DJD of right shoulder Erectile dysfunction of organic origin SCOT (generalized anxiety disorder) ([facility]) 08/18/2023 High cholesterol ([facility]) 09/28/2023 Insomnia Mild persistent asthma with exacerbation ([facility]) 09/28/2023 Controlled with singulair. Does not need rescue inhaler Morbid obesity with body mass index (BMI) of 40.0 to 44.9 in adult ([facility]) 09/28/2023 SALVATORE on CPAP 09/28/2023 Osteoarthritis 09/28/2023 [...] 09/28/2023 Spinal stenosis, lumbar 06/12/2014 Tortuous aorta ([facility]) 09/28/2023 Ventral hernia 09/28/2023 3.9) ; [...] in his father. OBJECTIVE: Visit Vitals BP 140/82 (BP Location: Left arm, Patient Position: Sitting, BP Cuff Size: Large adult long) Pulse 79 Temp 98.4 F (Temporal) Resp 19 Wt 298 lb 12.8 oz SpO2 92% BMI 42.87 kg/m Smoking Status Former BSA 2.59 m Physical Exam Vitals and nursing note [...] Normal pulses. Heart sounds: Normal heart sounds. No murmur heard. Pulmonary: Effort: Pulmonary effort is normal. Breath sounds: Normal breath sounds. No wheezing or rhonchi. Abdominal: General: Bowel sounds are normal. Palpations: Abdomen is soft. Musculoskeletal: Cervical back: Neck supple. Right lower leg: No edema. Left lower leg: No edema. Comments: Decreased ROM lumbar spine Skin: General: Skin is warm and dry. Capillary Refill: Capillary refill takes 2 to 3 seconds. Neurological: General: No focal deficit present. Mental Status: He is alert. Psychiatric: Mood and Affect: Mood normal. Behavior: Behavior normal. Thought Content: Thought content normal. Judgment: Judgment normal. ASSESSMENT AND PLAN: No follow-ups on file. Problem List Items Addressed This Visit Lumbosacral spondylosis without myelopathy Was last seen for this condition by me approx 1 month ago He is also under the care of [facility]'s pain mgmt Had RFA procedure 10/19/24 He is improving, but not enough to RTW no restrictions, we will extend off work note until and including 11/18/24, with an estimated RTW date 11/19/24 I will see him either 11/14 or 11/15/24 for final decision Benign hypertension (CMS/HCC) - Primary Please check [...] sodas, juices, and sugary drinks. Associated Problem(s): Morbid (severe) obesity due to excess calories (CMS/HCC) Discussed with patient their BMI (actual, verses recommended). We have also discussed lifestyle modifications: attempts to perform physical activity as chronic conditions allow, also to monitor dietary intake: increasing protein/fruits/veggies and lowering carb intake (unless contraindicated). Limit sodas, juices, and sugary drinks. Associated Problem(s): Lumbosacral spondylosis without myelopathy Was last seen for this condition by me approx 1 month ago He is also under the care of [facility]'s tegan mgmt Had RFA procedure 10/19/24 He is improving, but not enough to RTW no restrictions, we will extend off work note until and including 11/18/24, with an estimated RTW date 11/19/24 I will see him either 11/14 or 11/15/24 for final decision Associated Problem(s): Benign hypertension (CMS/HCC) Please check blood pressure daily and record DASH diet Limit caffeine Take medication as directed Contact office if chest pain, pressure, dizziness, shortness of breath, swelling legs Recommend slow position changes Current meds: lisinopril/HCTZ documented in this encounter [facility] 10-29-2024 Instructions Shavonne Chowdary NP - 10/29/2024 1:40 PM EDT Remain off work until and including 11/18/24, with est RTW date 11/19/24 Cont with pain mgmt as well documented in this encounter [facility] 10-08-2024 Hospital Discharge instructions Patient Education 10/08/2024 11:10:38 Hypogonadism, Male Hypogonadism, Male Male hypogonadism is [...] therapy. Follow these instructions at home: Take [id number] and prescription medicines only as told by [...] provider. Document Revised: 04/09/2021 Document Reviewed: 04/09/2021 [employer] Patient Education 2023 [email or web address]. Follow Up Care 09/04/2024 11:28:28 With:RENETTA Watts APRN, Wendi Acuna, CHUNG, URL Address: When: Unknown [facility] 10-08-2024 Note Patient Education Urology Hypogonadism, Male Male hypogonadism is a condition of having a level of testosterone that is lower than normal. Testosterone is a chemical, or hormone, that is made mainly in the testicles. In boys, testosterone is responsible for the development of male characteristics during puberty. These include: ??? Making the penis bigger. ??? Growing and building the muscles. ??? Growing facial hair. ??? Deepening the voice. In adult men, testosterone is responsible for maintaining: ??? An interest in sex and the ability to have sex. ??? Muscle mass. ??? Sperm production. ??? Red blood cell production. ??? Bone strength. Testosterone also gives men energy [...] the causes? This condition is caused by: ??? A natural decrease in testosterone that occurs as a man grows older. This is the main cause of this condition. ??? Use of medicines, such as antidepressants, steroids, and opioids. ??? Diseases and conditions that affect the testicles [...] symptoms? Common symptoms of this condition include: ??? Loss of interest in sex (low sex drive). ??? Inability to have or maintain an erection (erectile dysfunction). ??? Feeling tired (fatigue). ??? Mood changes, like irritability or depression. ??? Loss of muscle and body hair. ??? Infertility. ??? Large breasts. ??? Weight gain (obesity). How is this diagnosed? Your health care provider can diagnose hypogonadism based on: ??? Your signs and symptoms. ??? A physical exam to check your testosterone [...] replacement therapy. Testosterone can be given by: ??? Injection or through pellets inserted under the skin. ??? Gels or patches placed on the skin or in the mouth. Testosterone therapy is not for everyone. It has risks and side effects. Your health care provider will consider your medical history, your risk for prostate cancer, your age, and your symptoms before putting you on testosterone replacement therapy. Follow these instructions at home: ??? Take [id number] and prescription medicines only as told by your health care provider. ??? Eat foods that are high in fiber, such as beans, whole grains, and fresh fruits and vegetables. Limit foods that are high in fat and processed sugars, such as fried or sweet foods. ??? If you drink alcohol: ? Limit how much you have to 0?2 drinks a day. ? Know how much alcohol is in your drink. In the [place] one drink equals one 12 oz bottle of beer (355 mL), one 5 oz glass of wine (148 mL), or one 1? oz glass of hard liquor (44 mL). ??? Return to your normal activities as told by your health care provider. Ask your health care provider what activities are safe for you. ??? Keep all follow-up visits. This is important. Contact a health care provider if: ??? You have any of the signs or symptoms of low testosterone. ??? You have any side effects from testosterone therapy. Summary ??? Male hypogonadism is a condition of having a level of testosterone that is lower than normal. ??? The natural drop in testosterone production that occurs with age is the most common cause of this condition. ??? Low testosterone can also be caused by many diseases and conditions that affect the testicles and the making of testosterone. ??? This condition is treated with testosterone replacement therapy. ??? There are risks and side effects of testosterone therapy. Your health care provider will consider your age, medical history, symptoms, and risks for prostate cancer before putting you on testosterone therapy. This information is not intended to replace advice given to you by your health care provider. Make sure you discuss any (more content not included)... [facility] 10-02-2024 History of Present illness Narrative [facility] [address] [place] [address] Patient: Marcel Wahl Sex: male : 1965 Age: 59 y.o. PCP: No primary care provider on file. 10/02/2024 Marcel Wahl is here for a(n) follow up for increased back pain. Patient reports constant low back pain and right hip pain. Pain is currently a 8/10 and can get up to 10/10 depending on activity. Reports pain is worse when going from sitting to standing. Patient states PCP recently prescribed Prednisone 20 mg twice a day for 5 days, which he has not picked up from pharmacy yet. States also has flexeril that has helped in the past, but has not helped his pain recently. Chief Complaint Patient presents with Back Pain HPI: 09/24/2022 bilateral L 4/5, L5/S1 Medial Branch Block with 80% relief x 5 hours 10/29/22 Apollo L 4/5 5/1 MBB w/100% relief for 1 day 03/04/2023 right L 4/5, L/5S1 Radiofrequency Abalation with 70 % relief Back Pain This is a chronic problem. The current episode started more than 1 year ago. The problem occurs constantly. The problem has been gradually worsening since onset. The pain is present in the lumbar spine and gluteal (right hip). The quality of the pain is described as aching and stabbing (sharp). The pain does not radiate. Pain scale: 8/10 currently can get up to 10/10. The pain is moderate. The pain is The same all the time. The symptoms are aggravated by bending and standing (walking, stairs, walking, leaning on cart). Stiffness is present In the morning. Associated symptoms include weakness (RLE with ambulation). Pertinent negatives include no abdominal pain, bowel incontinence, chest pain, fever, leg pain, numbness or tingling. (Patient reports that back pain increases with prolonged standing. He states increased pain and weakness to right hip ambulating ) Risk factors include obesity. He has tried NSAIDs, muscle relaxant, chiropractic manipulation and home exercises (flexeril mod relief, IBU, etodolac- no relief ;Just prescribed Gabapentin and nabumetone; to start PT(08/2022) ; hx of injections with significant relief; Marijuana daily with mild relief ) for the symptoms. The treatment provided moderate relief. The effect of pain on patient's ADLS: Moderate Impairment. Past Medical History: Diagnosis Date Asthma Chronic back pain Diverticulitis hx of Enlarged prostate Hypertension Low back pain Neck pain Obesity Obstructive sleep apnea treated with continuous positive airway pressure (CPAP) Osteoarthritis Rheumatoid arthritis (CMS-HCC) Right knee meniscal tear hx Sleep apnea CPAP HS Past Surgical History: Procedure Laterality Date ADVANCEMENT / RECONSTRUCTION POSTERIOR TIBIAL TENDON / KIDNER Right 2007 Right foot and posterior tendon reconstruction ANKLE SURGERY Right tendon transplant COLECTOMY DENTAL SURGERY HYDROCELECTOMY INJECTION BLOCK NERVE MEDIAL BRANCH: bilat L 4/5 5/ Bilateral 10/29/2022 Performed by Parish Wren MD at [facility] INJECTION BLOCK NERVE MEDIAL BRANCH: bilat L 4/5 5/ Bilateral 09/24/2022 Performed by Parish Wren MD at [facility] KNEE ARTHROSCOPY Right RADIOFREQUENCY ABLATION SPINAL: right L 4/5 5/ Right 03/04/2023 Performed by Parish Wren MD at [facility] RIGHT L3/4, 4/5, 5/1 MEDIAL BRANCH NERVE BLOCK 2 OF 2 Right 05/22/2018 Performed by Parish Wren MD at [facility] RIGHT L3/4, 4/5, 51 MEDIAL BRANCH NERVE BLOCK 1 OF 2 Right 05/08/2018 Performed by Parish Wren MD at [facility] TOTAL SHOULDER REPLACEMENT Right 2021 Allergies Allergen Reactions Penicillins Shortness Of Breath Demerol [Meperidine] Hallucinations Morphine (Pf) Hallucinations Family History Problem Relation Age of Onset Aneurysm Mother Heart disease Father Social History Socioeconomic History Marital status: Spouse name: Not on file Number of children: Not on file Years of education: Not on file Highest education level: Not on file Occupational History Not on file Tobacco Use Smoking status: Former Smokeless tobacco: Current Tobacco comments: Quit smoking 1 year ago Uses oral nicotine lozenges Vaping Use Vaping status: Never Used Substance and Sexual Activity Alcohol use: Yes Comment: Socially Drug use: Yes Types: Marijuana Comment: Daily Use Sexual activity: Defer Other Topics Concern Not on file Social History Narrative Not on file Social Drivers of Health Financial Resource Strain: Low Risk (09/29/2023) Received from [facility] Overall Financial Resource Strain (CARDIA) Difficulty of Paying Living Expenses: Not hard at all Food Insecurity: No Food Insecurity (10/02/2024) Hunger Screening Food Insecurity - Worry: Never True Food Insecurity - Inability: Never True Transportation Needs: No Transportation Needs (09/29/2023) Received from [facility] PRAPARE - Transportation Lack of Transportation (Medical): No Lack of Transportation (Non-Medical): No Physical Activity: Inactive (09/29/2023) Received from [facility] Exercise Vital Sign Days of Exercise per Week: 0 days Minutes of Exercise per Session: 0 min Stress: Stress Concern Present (09/29/2023) Received from [facility] [employer] - Occupational Stress Questionnaire Feeling of Stress : To some extent Social Connections: Moderately Integrated (09/29/2023) Received from [facility] Social Connection and Isolation Panel [NHANES] Frequency of Communication with Friends and Family: Twice a week Frequency of Social Gatherings with Friends and Family: Once a week Attends Scientologist Services: Never Active Member of Clubs or Organizations: Yes Attends Club or Organization Meetings: 1 to 4 times per year Marital Status: Interpersonal Safety: Not At Risk (09/29/2023) Received from [facility] Humiliation, Afraid, Rape, and Kick questionnaire Fear of Current or Ex-Partner: No Emotionally Abused: No Physically Abused: No Sexually Abused: No Housing Instability: Low Risk (09/29/2023) Received from [facility] Housing Stability Vital Sign Unable to Pay for Housing in the Last Year: No Number of Places Lived in the Last Year: 1 Unstable Housing in the Last Year: No Review of Systems Constitutional: Negative. Negative for chills and fever. HENT: Negative. Negative for congestion and sore throat. Eyes: Negative. Respiratory: Negative. Negative for cough and shortness of breath. Cardiovascular: Negative. Negative for chest pain. Gastrointestinal: Negative. Negative for abdominal pain and bowel incontinence. Endocrine: Negative. Genitourinary: Negative. Musculoskeletal: Positive for back pain. Skin: Negative. Allergic/Immunologic: Negative. Neurological: Positive for weakness (RLE with ambulation). Negative for tingling and numbness. Hematological: Negative. Psychiatric/Behavioral: Negative. Vital Signs: BP 137/83 (BP Site: Right Arm, BP Postition: Sitting) Pulse 80 Resp 18 Ht 177.8 cm (5' 10 ) Wt (!) 142.9 kg (315 lb) SpO2 95% BMI 45.20 kg/m Physical Exam: GENERAL - Healthy patient that appears stated age. HEENT - Normocephalic / Atraumatic, Extraoccular movements intact, trachea midline, thyroid within normal limits. CV - pulse regular, Warm extremities with appropriate color of nailbeds. RESP - No obvious wheezing, No Shortness of Breath, No overexertion response to exam maneuvers. COORDINATION - remains intact. PSYCH - Alert and Oriented x4, Attentive and appropriate, constitutionally normal, displays normal mood and affect per situation, answered questions appropriately during examination, demonstrated appropriate attention during discussion, demonstrated appropriate cognitive reasoning and understanding of the medical condition by asking appropriate questions regarding the diagnosis and risks/benefits/alternatives of treatment modalities. No obvious deficits in memory, reasoning, or intellect. Lumbar: SKIN - No rashes or bruising in the area of the patient s pain. LYMPH NODES - demonstrate no obvious enlargement. EXTREMITIES - Lower extremities are warm, with minimal edema and palpable pulses. Tenderness to palpation noted in the Right lumbar spine and paraspinal musculature. Pain is elicited with flexion, extension, and lateral rotation of the Right lumbar spine. Range of motion is diminished with these motions due to pain. Facet palpation is noted to be painful and facet loading maneuvers elicit pain that is concordant with the patient s normal pain complaints. Some muscle spasm is noted in the overlying musculature. STRENGTH - noted to be 5 out of 5 all muscle groups bilateral lower extremities including muscles involving hip flexion and abduction, knee flexion and extension, as well as foot dorsiflexion and plantarflexion. No notable atrophy, fasciculations or spasm. SENSORY - No notable sensory deficits in the bilateral lower extremities to touch or pinprick in all dermatomal distributions. Straight Leg Raise is negative bilaterally. Gait is antalgic. Assessment/Treatment Plan: Marcel was seen today for back pain. Diagnoses and all orders for this visit: Lumbosacral spondylosis without myelopathy - Case request operating room: RADIOFREQUENCY ABLATION SPINAL: right L45 [id number] Right L4/5, 5/1 Facet Radiofrequency Ablation - under fluoroscopy It is hopeful that the described procedure will provide symptomatic pain relief. It is felt to be medically necessary noting that the patient has tried and failed more conservative modalities of therapy and this is the next most appropriate step. The procedure was described in detail to the patient as well as the potential benefits of pain reduction alongside risks of the procedure and alternatives. Risks were described as including, but not limited to bleeding, infection, nerve damage, spinal cord injury, paralysis, stroke, dural puncture headache, and medication reaction. The patient expressed understanding regarding the risks and benefits and wishes to proceed. The patient has undergone diagnostic injections targeting the above mentioned facet joints. There was significant improvement in the patient s pain and functionality for the duration of the local anesthetic (approximately 2 hours) with return of the original symptoms after that time. For this reason, it is felt that the patient is a good candidate to undergo thermal Radio Frequency Lesioning of the Medial Branch Nerves at 80 degrees celsius for 90 seconds. This will effectively denervate the arthritic facet joints previously targeted with the diagnostic injection. It is noted that the procedure often requires 3-4 weeks to provide benefit, but the benefit usually lasts for approximately 1 year and can then be repeated if necessary. Patients undergoing this procedure often have mild post-procedural pain for 3-4 days which is generally relieved with application of heat and over the counter pain relievers. Follow up 4 weeks after procedure The medications I have prescribed have been reviewed for medication interactions/contraindications and/or for upcoming procedures: continue current medication regimen without any changes. DISCUSSION: Treatment options discussed with patient and all questions answered to patient's satisfaction. Discussed the rules and regulations surrounding prescription of opioids and compliance at length. Failure to follow the rules and regulation will result in tapering and discontinuation of medications if applicable. Prescribed medication that requires intensive monitoring for toxicity We do not currently prescribe any controlled substance from this practice. It is noted that the patient did have good response from the previously performed procedure. It is felt that the patient would benefit from an additional procedure of the same nature in that the same symptoms have returned. It is hopeful that this additional injection will provide additional benefit and duration when combined with the previous injection. The spine model was demonstrated and MRI was reviewed and used to explain the condition. Chronic conditions not treated during this visit that affected my overall medical decision making: Comorbidity- Obesity The patient does have a comorbid condition of obesity. This will be taken into account in that obesity will contribute to certain pain conditions. It can contribute to pain from degenerative disc disease as well as osteoarthritis of the joints. Many neuropathic symptoms are also amplified due to axial spine loading. Special benefits will also need to be given to procedures. Many procedures are technically more difficult in the light of severe obesity. I will also consider the possibility of undiagnosed obstructive sleep apnea (which often accompanies obesity) when prescribing any narcotic medications. I will weigh the risks and benefits and fully discuss them with the patient for these reasons. Comorbidity- Sleep Apnea The patient has a history of obstructive sleep apnea. Due to this reason, special consideration will need to be given to the prescription of narcotics in that they may depress respiratory function and lead to respiratory insufficiency or failure. Consideration will also be given to procedure safety in that sedation is used in the outpatient setting for any planned procedure. These records will be available to the anesthesiologist to tailor a safe anesthetic for the procedure. The patient will also be observed closely in the recovery area and may even require admission if they remain overly sedated for an extended period of time and cannot maintain an airway. These preparations will be made as necessary. OARRS: Reviewed. Scribe Statement: Shavonne Kauffman CNA, scribed for and in the presence of DANIELE KHAN who performed the above service. Provider Statement: ISATYA PA, personally performed the services described in the documentation, as scribed by Shavonne Galvez CNA in my presence, and it is both accurate and complete. Shavonne Galvez CNA 10/02/24 1141 DANIELE Khan 10/02/24 1201 documented in this encounter [facility] 10-02-2024 Instructions Shavonne Galvez CNA - 10/02/2024 11:15 AM EST Radiofrequency Ablation (RFA) Radiofrequency ablation (or RFA) is a procedure used to reduce pain. An electrical current produced by a radio wave is used to heat up a small area of nerve tissue, thereby decreasing pain signals from that specific area. Which Conditions Are Treated With Radiofrequency Ablation? RFA can be used to help patients with chronic (long-lasting) back and neck pain and pain related to the degeneration of joints from arthritis. How Long Does Pain Relief from Radiofrequency Ablation Last? The degree of pain relief varies, depending on the cause and location of the pain. Pain relief from RFA can last from six to 12 months and in some cases, relief can last for years. More than 70% of patients treated with RFA experience pain relief. Is Radiofrequency Ablation Safe? RFA has proven to be a safe and effective way to treat some forms of pain. It also is generally well-tolerated, with very few associated complications. There is a slight risk of infection and bleeding at the insertion site. Your doctor can advise you about your particular risk. Can I Resume My Normal Activities After Radiofrequency Ablation? You will have a few restrictions immediately following radiofrequency ablation: Do not drive or operate machinery for at least 24 hours after the procedure. You may resume your normal diet and prescribed medications (including blood thinners) when you get home. Do not engage in any strenuous activity for the first 24 hours after the procedure. You may remove any bandages in the evening before going to bed. You may experience the following effects after RFA: Leg numbness: If you have any leg numbness, walk only with assistance. This should only last a few hours and is due to the local anesthesia given during the procedure. Mild back discomfort: This may occur when the local anesthetic wears off and usually lasts two or three days. Apply heat to the area the day of the procedure and the day after the procedure. You may also use your usual pain medications and NSAID medications such as ibuprofen, naproxen, Aleve, Motrin, etc. if you are able. Expectations: Results will be gradual. It may take 3-4 weeks for full relief. If you feel severe pain at the injection site with swelling and redness, increased leg weakness, a fever of 101 or higher, headache (or worsening headache), changes in vision or urinary retention: Please call the office at , or have someone take you to the nearest emergency room. Tell the emergency room staff that you just had RFA. A doctor must evaluate you for bleeding and injection complications. If you lose control over bowel, bladder, or legs: Go to the nearest emergency room. If you are diabetic, the steroids used in this procedure can increase your blood sugar. If your blood sugar is 250mg/dL or higher, contact your primary care physician, or the doctor who manages your diabetes, to discuss how to get it back to normal. documented in this encounter [facility] 10-01-2024 History of Present illness Narrative Associated Problem(s): Lumbosacral spondylosis without myelopathy Acute exacerbation of chronic lumbar back pain Pain mgmt tomorrow Off work note given: is requesting 1 month off, so he can see pain mgmt, likely will need injections, which he said will take time, also they do not do off work notes Requests steroids: 5 day Ice to affected area Associated Problem(s): Morbid (severe) obesity due to excess calories (CMS/[facility]) Discussed with patient their BMI (actual, verses recommended). We have also discussed lifestyle modifications: attempts to perform physical activity as chronic conditions allow, also to monitor dietary intake: increasing protein/fruits/veggies and lowering carb intake (unless contraindicated). Limit sodas, juices, and sugary drinks. Pt states that the back pain started when he was sick from coughing however the back pain has gotten worse. He tried going to to work today and half way to work and he couldn't. Pt states its a constant sharp ongoing pain it is a jolt of pain any time he moves. Pain is located on the lower right side. Pt has an appt with pain mgmt. Tomorrow. Pt is needing a work note for sure today unsure about future days. Pt does use the nabumetone 1000mg BID Images from the original note were not included. Marcel Wahl is a 59 y.o. male presents with chief complaint of No chief complaint on file. HPI: Hx of long standing lumbar back pain: DDD and spinal stenosis. Flares up a few times per year. He is established with pain mgmt. And has an appt tomorrow with them Current pain: sharp, stabbing, right lumbar region Denies cauda equina, no fever chills, no blood stools no hematuria/dysuria Sxs are similar to his baseline exacerbations Worse with flexion/extension or any movement SUBJECTIVE: MEDICATIONS: Current Outpatient Medications Medication Instructions albuterol HFA 90 mcg/act inhaler 2 puffs, Inhalation, Every 6 hours PRN albuterol 2.5 mg, Nebulization, Every 6 hours PRN amitriptyline (ELAVIL) 50 mg, Oral, Nightly busPIRone (BUSPAR) 10 mg, Oral, [...] 20 mg, Oral, 2 times daily before meals, Take with food tadalafil (CIALIS) 10 mg, Daily PRN tadalafil [...] visual disturbance. Respiratory: Negative for apnea, chest tightness and wheezing. Cardiovascular: Negative for leg swelling. [...] aneurysm without rupture, unspecified portion of aorta ([facility]) 09/28/2023 Benign hypertension ([facility]) 09/28/2023 BPH associated with nocturia 09/28/2023 COVID-19 virus infection Diverticulitis DJD of right shoulder Erectile dysfunction of organic origin SCOT (generalized anxiety disorder) ([facility]) 08/18/2023 High cholesterol ([facility]) 09/28/2023 Insomnia Mild persistent asthma with exacerbation ([facility]) 09/28/2023 Controlled with singulair. Does not need rescue inhaler Morbid obesity with body mass index (BMI) of 40.0 to 44.9 in adult ([facility]) 09/28/2023 SALVATORE on CPAP 09/28/2023 Osteoarthritis 09/28/2023 [...] 09/28/2023 Spinal stenosis, lumbar 06/12/2014 Tortuous aorta ([facility]) 09/28/2023 Ventral hernia 09/28/2023 3.9) ; [...] in his father. OBJECTIVE: Visit Vitals BP 128/78 (BP Location: Left arm, Patient Position: Sitting, BP Cuff Size: Large adult) Pulse 85 Temp 99.4 F (Temporal) Resp 20 Wt 315 lb SpO2 96% BMI 45.20 kg/m Smoking Status Former BSA 2.66 m Physical Exam Vitals and nursing note [...] is normal. Breath sounds: Normal breath sounds. Musculoskeletal: General: Tenderness present. Cervical back: Neck supple. Right lower leg: No edema. Left lower leg: No edema. Comments: Tenderness to right lumbar and paraspinal area Very limited ROM and grimacing Skin: General: Skin is warm and dry. Capillary Refill: Capillary refill takes 2 to 3 seconds. Neurological: General: No focal deficit present. Mental Status: He is alert. Psychiatric: Mood and Affect: Mood normal. Behavior: Behavior normal. Thought Content: Thought content normal. Judgment: Judgment normal. ASSESSMENT AND PLAN: Follow up for Next scheduled follow-up. Problem List Items Addressed This Visit Lumbosacral spondylosis without myelopathy - Primary Acute exacerbation of chronic lumbar back pain Pain mgmt tomorrow Off work note given: is requesting 1 month off, so he can see pain mgmt, likely will need injections, which he said will take time, also they do not do off work notes Requests steroids: 5 day Ice to affected area Relevant Medications predniSONE (Deltasone) 20 MG tablet Morbid (severe) obesity due to excess calories (CMS/[facility]) Discussed with patient their BMI (actual, verses recommended). We have also discussed lifestyle modifications: attempts to perform physical activity as chronic conditions allow, also to monitor dietary intake: increasing protein/fruits/veggies and lowering carb intake (unless contraindicated). Limit sodas, juices, and sugary drinks. documented in this encounter [facility] 10-01-2024 Instructions Shavonne Chowdary NP - 10/01/2024 3:20 PM EST Off work note given Finish steroids take with food documented in this encounter [facility] 09-25-2024 History of Present illness Narrative Associated [...] PRN amitriptyline (ELAVIL) 50 mg, Oral, Nightly Okckpqi-Mijmjoznrwj-Gukgosyrjo (Breztri [employer]) 160-9-4.8 MCG/ACT aerosol 2 puffs, [...] aneurysm without rupture, unspecified portion of aorta ([facility]) 09/28/2023 Benign hypertension ([facility]) 09/28/2023 BPH associated with nocturia 09/28/2023 COVID-19 virus infection Diverticulitis DJD of right shoulder Erectile dysfunction of organic origin SCOT (generalized anxiety disorder) ([facility]) 08/18/2023 High cholesterol ([facility]) 09/28/2023 Insomnia Mild persistent asthma with exacerbation ([facility]) 09/28/2023 Controlled with singulair. Does not need rescue inhaler Morbid obesity with body mass index (BMI) of 40.0 to 44.9 in adult ([facility]) 09/28/2023 SALVATORE on CPAP 09/28/2023 Osteoarthritis 09/28/2023 [...] 09/28/2023 Spinal stenosis, lumbar 06/12/2014 Tortuous aorta ([facility]) 09/28/2023 Ventral hernia 09/28/2023 3.9) ; [...] and sugary drinks. documented in this encounter [facility] 09-25-2024 Instructions Shavonne Chowdary NP - 09/25/2024 3:20 PM EST RTW 09/26/24 documented in this encounter [facility] 09-13-2024 History of Present illness Narrative Associated Problem(s): COPD with exacerbation (CMS/HCC) Was getting better, then worse over weekend, [...] PRN amitriptyline (ELAVIL) 50 mg, Oral, Nightly Renyysq-Irflrrjbhui-Mdauzsjzsb (Breztri Aerosphere) 160-9-4.8 MCG/ACT aerosol 2 puffs, [...] aneurysm without rupture, unspecified portion of aorta ([facility]) 09/28/2023 Benign hypertension ([facility]) 09/28/2023 BPH associated with nocturia 09/28/2023 COVID-19 virus infection Diverticulitis DJD of right shoulder Erectile dysfunction of organic origin SCOT (generalized anxiety disorder) ([facility]) 08/18/2023 High cholesterol ([facility]) 09/28/2023 Insomnia Mild persistent asthma with exacerbation ([facility]) 09/28/2023 Controlled with singulair. Does not need rescue inhaler Morbid obesity with body mass index (BMI) of 40.0 to 44.9 in adult ([facility]) 09/28/2023 SALVATORE on CPAP 09/28/2023 Osteoarthritis 09/28/2023 [...] 09/28/2023 Spinal stenosis, lumbar 06/12/2014 Tortuous aorta ([facility]) 09/28/2023 Ventral hernia 09/28/2023 3.9) ; Has [...] 40.0-44.9, adult (CMS/HCC) COPD mixed type (CMS/HCC) Relevant Medications albuterol (2.5 MG/3ML) 0.083% nebulizer solution Uvpblxr-Vxkfkpczajd-Kslppdposa (Breztri Aerosphere) 160-9-4.8 MCG/ACT aerosol Other Relevant Orders XR chest 2 views COPD with exacerbation (CMS/HCC) - Primary Was getting better, then worse [...] Morbid (severe) obesity due to excess calories ([facility]) Discussed with patient their BMI (actual, verses recommended). We have also discussed lifestyle modifications: attempts to perform physical activity as chronic conditions allow, also to monitor dietary intake: increasing protein/fruits/veggies and lowering carb intake (unless contraindicated). Limit sodas, juices, and sugary drinks. documented in this encounter [facility] 09-13-2024 Instructions Shavonne Chowdary NP - 09/13/2024 9:40 AM EST New atb: levaquin daily for 7 days, add nebulizer every 6 hours as needed Chest xray today please New inhaler: breztri 2 puffs every 12 hours, rinse mouth after use: take twice a day Off work unitl 09/25/24 Go to ER if worsening in symptoms documented in this encounter [facility] 09-05-2024 History of Present illness Narrative Associated [...] aneurysm without rupture, unspecified portion of aorta ([facility]) 09/28/2023 Benign hypertension ([facility]) 09/28/2023 BPH associated with nocturia 09/28/2023 COVID-19 virus infection Diverticulitis DJD of right shoulder Erectile dysfunction of organic origin SCOT (generalized anxiety disorder) ([facility]) 08/18/2023 High cholesterol ([facility]) 09/28/2023 Insomnia Mild persistent asthma with exacerbation ([facility]) 09/28/2023 Controlled with singulair. Does not need rescue inhaler Morbid obesity with body mass index (BMI) of 40.0 to 44.9 in adult ([facility]) 09/28/2023 SALVATORE on CPAP 09/28/2023 Osteoarthritis 09/28/2023 [...] 09/28/2023 Spinal stenosis, lumbar 06/12/2014 Tortuous aorta ([facility]) 09/28/2023 Ventral hernia 09/28/2023 3.9) ; Has [...] Current meds: lisinopril/HCTZ documented in this encounter [facility] 09-05-2024 Instructions Shavonne Chowdary NP - 09/05/2024 2:20 PM EST Atb, steroids, tessalon pearls for cough, come back if not better Refilled amitriptyline at 50mg Steroids should help with back too Off work given documented in this encounter [facility] 06-26-2024 Evaluation + Plan note Diagnostic Tests PendingTestosterone Level Total 06/26/24 [facility] 06-26-2024 History of Present illness Narrative Associated Problem(s): Ventral hernia Advised of red flags to go to ER for No symptoms at this time Associated Problem(s): SCOT (generalized anxiety disorder) (CMS/HCC) Continues with taking buspar BID, helps with [...] aneurysm without rupture, unspecified portion of aorta ([facility]) 09/28/2023 Benign hypertension ([facility]) 09/28/2023 BPH associated with nocturia 09/28/2023 COVID-19 virus infection Diverticulitis DJD of right shoulder Erectile dysfunction of organic origin SCOT (generalized anxiety disorder) ([facility]) 08/18/2023 High cholesterol ([facility]) 09/28/2023 Insomnia Mild persistent asthma with exacerbation ([facility]) 09/28/2023 Controlled with singulair. Does not need rescue inhaler Morbid obesity with body mass index (BMI) of 40.0 to 44.9 in adult ([facility]) 09/28/2023 SALVATORE on CPAP 09/28/2023 Osteoarthritis 09/28/2023 [...] 09/28/2023 Spinal stenosis, lumbar 06/12/2014 Tortuous aorta ([facility]) 09/28/2023 Ventral hernia 09/28/2023 3.9) ; [...] This Visit SCOT (generalized anxiety disorder) (CMS/HCC) Continues with taking buspar BID, helps with symptoms No adjustments needed at this time No SI/HI/Hallucinations SALVATORE on CPAP Compliant with PAP Approx hours of use daily: Mild persistent asthma with exacerbation ([facility]) Relevant Medications albuterol HFA 90 mcg/act inhaler Benign hypertension ([facility]) - Primary Please check blood pressure daily and record DASH diet Limit caffeine Take medication as directed Contact office if chest pain, pressure, dizziness, shortness of breath, swelling legs Recommend slow position changes Ventral hernia Advised of red flags to go to ER for No symptoms at this time Morbid obesity with body mass index (BMI) of 40.0 to 44.9 in adult ([facility]) Discussed with patient their BMI (actual, verses recommended). We have also discussed lifestyle modifications: attempts to perform physical activity as chronic conditions allow, also to monitor dietary intake: increasing protein/fruits/veggies and lowering carb intake (unless contraindicated). Limit sodas, juices, and sugary drinks. Needs flu shot Relevant Orders Flu vaccine, MDCK, quadrivalent, PF ([id number]) (Flucelvax single dose syringe) (Completed) Associated Problem(s): Morbid obesity with body mass index (BMI) of 40.0 to 44.9 in adult ([facility]) Discussed with patient their BMI (actual, verses recommended). We have also discussed lifestyle modifications: attempts to perform physical activity as chronic conditions allow, also to monitor dietary intake: increasing protein/fruits/veggies and lowering carb intake (unless contraindicated). Limit sodas, juices, and sugary drinks. Associated Problem(s): Benign hypertension ([facility]) Please check blood pressure daily and record DASH diet Limit caffeine Take medication as directed Contact office if chest pain, pressure, dizziness, shortness of breath, swelling legs Recommend slow position changes Associated Problem(s): SALVATORE on CPAP Compliant with PAP Approx hours of use daily: documented in this encounter [facility] 02-21-2024 Hospital Discharge instructions Patient Education 02/21/2024 [...] therapy. Follow these instructions at home: Take awbd-bpk-vggkmtl and prescription medicines only as told by [...] provider. Document Revised: 04/09/2021 Document Reviewed: 04/09/2021 [employer] Patient Education 2022 [email or web address]. 02/21/2024 12:25:41 Benign Prostatic Hyperplasia Benign Prostatic [...] urethra. Follow these instructions at home: Take dxun-jvr-fotujtf and prescription medicines only as told by [...] provider. Document Revised: 02/24/2022 Document Reviewed: 02/24/2022 [employer] Patient Education 2022 [email or web address]. 02/21/2024 12:25:39 Erectile Dysfunction Erectile Dysfunction Erectile [...] Follow these instructions at home: Medicines Take ndql-yyj-xxmkujf and prescription medicines only as told by [...] provider. Document Revised: 11/04/2021 Document Reviewed: 11/04/2021 [employer] Patient Education 2022 [email or web address]. Follow Up Care 02/01/2024 11:50:53 With:NEVAEH HARKINS, Javier Jones, URL Address: [address] [place], [place] [id number]- When: Unknown Comments:Cystoscopy [facility] 02-21-2024 Evaluation + Plan note Diagnostic Tests PendingTestosterone Level Total 02/21/24 [facility] 02-21-2024 Note Patient Education Urology Hypogonadism, [...] Follow these instructions at home: ? Take vcvm-fra-xzyxyus and prescription medicines only as told by [...] provider. Document Revised: (more content not included)... [facility] 12-05-2023 Hospital Discharge instructions Follow Up Care 12/05/2023 15:08:17 With:NEVAEH HARKINS, Javier Jones, URL Address: [facility] [address] [place] [address] [phone] When: Unknown [facility] 12-05-2023 Hospital Discharge instructions Patient Education 12/05/2023 [...] Follow these instructions at home: Medicines Take ujvu-ven-tatdjqr and prescription medicines only as told by [...] provider. Document Revised: 11/04/2021 Document Reviewed: 11/04/2021 [employer] Patient Education 2022 [email or web address]. Follow Up Care 09/27/2023 10:13:00 With:NEVAEH HARKINS, Javier Jones, URL Address: [facility] [address] , [place] [address] [phone] When: Unknown Comments:f/u for [facility] teaching [facility] 09-29-2023 History of Present illness Narrative Associated [...] nodule , is going to see a solderer electronic, hx of 50 pack year smoking, quit [...] spray 2 sprays, Each Nostril, Daily HYDROcodone-acetaminophen ([place]) 5-325 MG tablet 1 tablet, Oral, Every [...] aneurysm without rupture, unspecified portion of aorta ([facility]) 09/28/2023 Benign hypertension ([facility]) 09/28/2023 BPH associated with nocturia 09/28/2023 COVID-19 virus infection Diverticulitis DJD of right shoulder Erectile dysfunction of organic origin SCOT (generalized anxiety disorder) ([facility]) 08/18/2023 High cholesterol ([facility]) 09/28/2023 Insomnia Mild persistent asthma with exacerbation ([facility]) 09/28/2023 Controlled with singulair. Does not need rescue inhaler Morbid obesity with body mass index (BMI) of 40.0 to 44.9 in adult ([facility]) 09/28/2023 SALVATORE on CPAP 09/28/2023 Osteoarthritis 09/28/2023 [...] 09/28/2023 Spinal stenosis, lumbar 09/28/2023 Tortuous aorta ([facility]) 09/28/2023 Ventral hernia 09/28/2023 3.9) ; [...] 45.0-49.9, adult (Z68.42) documented in this encounter [facility] 05-04-2023 Miscellaneous Notes I have called and discussed with Marcel Brown recommendations which are there is no indication for surgery. 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 Also, blood pressure control is essential to keep aorta size stable. He verbalized understanding Oksana Spear RN diagnosis: aorta 4.1 cm on echo history: obesity, chronic back pain, anxiety, asthma, HTN, SALVATORE, Patient has been communicating via Dr. Shaikh Liang's office. [place] nurse [phone] Diagnosis: aneurysm All records are in Epic Left a VM. Need: explain the process and let patient know that I am in contact with his Dr's office trying to get all his records. Currently waiting for CT images. documented in this encounter [facility] 03-28-2023 Hospital Discharge instructions [...] Follow these instructions at home: Medicines Take yzpp-dvw-akbfpbr and prescription medicines only as told by [...] provider. Document Revised: 11/04/2021 Document Reviewed: 11/04/2021 [employer] Patient Education 2022 [email or web address]. Follow Up Care 03/07/2023 10:38:37 With:NEVAEH HARKINS, Javier Jones, URL Address: [facility] [address] [place] [address] [phone] When:Within 6 Month(s) Comments:T level [facility] [place] 03-07-2023 Hospital Discharge instructions Patient Education 03/07/2023 [...] provider gives to you. In general: Take tikv-vhm-olwhjea and prescription medicines only as told by [...] provider. Document Revised: 02/02/2021 Document Reviewed: 02/02/2021 [employer] Patient Education 2022 [email or web address]. Follow Up Care 02/18/2023 09:13:02 With:NEVAEH HARKINS, Javier Jones, URL Address: [facility] [address] , [place] [address]- [phone] When: Unknown Comments:CT scan and PSA [facility] 01-13-2023 Note PROCEDURE: XR HIP RT 2 3V WO PELVIS HISTORY: Pain in right hip joint ; no known injury COMPARISON: None. FINDINGS: BONES:No fracture, acute abnormality, or significant arthropathy. SOFT TISSUES:No visible soft tissue swelling. EFFUSION:None visible. OTHER: Negative. IMPRESSION: 1. No acute bone abnormality or significant degenerative joint disease. Electronically authenticated by: LISSETTE MCCAIN Date: 2023-01-13 10:45 [facility] 01-03-2023 Evaluation note Encounter Date Diagnosis [...] with sciatica home care material was printed [facility] 12-07-2022 NotePROCEDURE: XR SHOULDER RT 2V [...] Electronically authenticated by: LISSETTE MCCAIN Date: 2022-07-28 13:47[facility]11-15-2022 NotePROCEDURE: XR ANKLE LT MIN 3 [...] Electronically authenticated by: DARIN CHAPA Date: 2022-07-06 07:39[facility]11-15-2022 NotePROCEDURE: XR ANKLE LT MIN 3 [...] Electronically authenticated by: DARIN CHAPA Date: 2022-07-06 07:39[facility]01-07-2015 Miscellaneous Notes* Telephone Encounter - Coco [...] may contact Orquidea at their home # [phone] with questions/concerns, OK to leave a message at their home number. * Telephone Encounter - Nirali Amaral MA - 08/28/2014 3:12 PM EST Called [...] him close to that time frame. NIRALI AMARAL MA * Telephone Encounter - Eunice Mckinney - 08/28/2014 2:44 PM EST Patient's called to reschedule patients 09/02/[address] Pruitt. However, the next available is not until 09/16/14 and patient is to return to work on 09/13/14. Patient may be reached at [phone] to advise, it is ok to leave a message if no answer. [facility] Future Appointments Appointment Date:03/28/2023 11:15:00 AM Scheduled Provider:Javier HERRING MD Location:[facility] Appointment Type:URO Office Visit Diagnostic Tests Pending * PSA Total 03/07/23 [facility] evaluation + Plan note Future Appointments Appointment Date:09/26/2023 09:15:00 AM Scheduled Provider:Javier HERRING MD Location:[facility] Appointment Type:URO Office Visit Diagnostic Tests Pending * Testosterone Level Total 03/28/23 [facility] evaluation + Plan note Future Appointments Appointment Date:01/23/2024 11:30:00 AM Scheduled Provider:Javier HERRING MD Location:[facility] Appointment Type:URO Office Visit [facility] evaluation + Plan note Future Appointments Appointment Date:12/06/2024 10:20:00 AM Scheduled Provider:RENETTA Watts APRN, [place] [facility] Location:[facility] Appointment Type:URO Office Visit Diagnostic Tests Pending * PSA Total 10/08/24 * Testosterone Level Total 10/08/24 * Hematocrit 10/08/24 [facility] Evaluation note* Diagnosis Benign hypertension (CMS/HCC)- Primary Essential [...] gangrene Mild intermittent asthma with (acute) exacerbation (CMS/HCC) [facility] Diagnosis Essential (primary) hypertension (CMS/HCC) Unspecified essential hypertension [facility] Diagnosis Other intervertebral disc degeneration, lumbar region [facility] Diagnosis SCOT (generalized anxiety disorder) (CMS/HCC) Generalized anxiety disorder Other intervertebral disc degeneration, lumbar region [facility] Diagnosis Benign hypertension ([facility]/HCC)- Primary Essential hypertension, benign Morbid (severe) obesity due to excess calories (E66.01) Body mass index [BMI] 45.0-49.9, adult (Z68.42) Aortic aneurysm without rupture, unspecified portion of aorta (CMS/HCC) High cholesterol (CMS/HCC) Pure hypercholesterolemia SCOT (generalized anxiety disorder) ([facility]/HCC) Generalized anxiety disorder Screening for prostate cancer [...] asthma, with exacerbation SCOT (generalized anxiety disorder) ([facility]/HCC) Generalized anxiety disorder Ventral hernia without obstruction or gangrene Unspecified ventral hernia without mention of obstruction or gangrene Benign hypertension (CMS/HCC)- Primary Essential hypertension, benign Morbid (severe) obesity due to excess calories (CMS/HCC) Body mass index (BMI) 40.0-44.9, adult (CMS/HCC) Essential (primary) hypertension (CMS/HCC) Unspecified essential hypertension Upper respiratory tract infection, unspecified type Lumbosacral spondylosis without myelopathy documented in this encounter [facility]* Diagnosis Benign hypertension (CMS/HCC)- [...] type (CMS/HCC) Wheezing documented in this encounter [facility]* Diagnosis Benign hypertension (CMS/HCC)- Primary [...] type (CMS/HCC) [facility] [...] 40.0-44.9, adult (CMS/HCC) COPD mixed type (CMS/HCC) Lumbosacral spondylosis without myelopathy- Primary Morbid (severe) obesity due to excess calories (CMS/HCC) documented in this encounter [facility]* Diagnosis Lumbosacral spondylosis without myelopathy- Primary Lumbosacral spondylosis without myelopathy- Primary Lumbosacral spondylosis without myelopathy [facility] Diagnosis Benign hypertension (CMS/HCC)- Primary Essential [...] 40.0-44.9, adult (CMS/HCC) COPD mixed type (CMS/HCC) Lumbosacral spondylosis without myelopathy- Primary Morbid (severe) obesity due to excess calories (CMS/HCC) Lumbosacral spondylosis without myelopathy- Primary Benign hypertension (CMS/HCC) Essential hypertension, benign Morbid (severe) obesity due to excess calories (CMS/HCC) documented in this encounter [facility]* Diagnosis Lumbosacral spondylosis without myelopathy- Primary documented in this encounter [facility]* Diagnosis Benign hypertension (CMS/HCC)- Primary Essential [...] 40.0-44.9, adult (CMS/HCC) COPD mixed type (CMS/HCC) Lumbosacral spondylosis without myelopathy- Primary Morbid (severe) obesity due to excess calories (CMS/HCC) Lumbosacral spondylosis without myelopathy- Primary Benign hypertension (CMS/HCC) Essential hypertension, benign Morbid (severe) obesity due to excess calories (CMS/HCC) Benign hypertension (CMS/HCC)- Primary Essential hypertension, benign SALVATORE on CPAP Morbid (severe) obesity due to excess calories (CMS/HCC) SCOT (generalized anxiety disorder) (CMS/HCC) Generalized anxiety disorder Lumbosacral spondylosis without myelopathy [facility] [...] Hospitalization History see above Hospitalization History diverticulitis [facility] Hospital course Narrative No data available for this section [facility] Hospital Discharge instructions No data available for this section [facility] InstructionsNot on filedocumented in this encounter [facility] No data available for this section [facility] Discharge Instructions * Attachments The following attachments cannot be sent through Care Everywhere. 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 Advance Directives and Living Will Power of Clergy Member Summary Purpose Family History No Family History [...] Pt states he was just d/c from [facility] and they told him basically that I was fat and lazy Reason Onset Date Comments Surgical Followup 08/28/2014 Reason Comments Referral Information Reason Comments Med Refill Reason Comments Nasal Congestion Reason Comments Letter for School/Work Reason Comments COPD Reason Comments Back Pain Reason Comments Back Pain (unrecognized sect ion and content) No Status Records FoundNo Status Records FoundNo Status Records FoundNo Status Records FoundNo Status Records FoundNo Status Records FoundNo Status Records Found INFORMATION SOURCE (unrecogn ized section and content) DATE CREATED AUTHOR 03/11/2020 [facility] DATE CREATED AUTHOR AUTHOR'S ORGANIZ ATION 01/28/2023 [facility] DATE CREATED AUTHOR AUTHOR'S ORGANIZ ATION 05/08/2023 [facility] DATE CREATED AUTHOR AUTHOR'S ORGANIZ ATION 09/21/2024 [facility] DATE CREATED AUTHOR AUTHOR'S ORGANIZ ATION 10/09/2024 [facility] DATE CREATED AUTHOR AUTHOR'S ORGANIZ ATION 10/31/2024 [facility] DATE CREATED AUTHOR AUTHOR'S ORGANIZ ATION 11/14/2024 [facility] Source Comments (unrecognize d section and content) In the event this informatio n is protected by the Federal Confidentiality of Alcohol and Drug Abuse Patient Records regulations: The Federal rules restrict any use of the information to criminally investigate or prosecute any alcohol or drug abuse patient.[facility] the event this information is protected by the Federal Confidentiality of Alcohol and Drug Abuse Patient Records regulations: The Federal rules restrict any use of the information to criminally investigate or prosecute any alcohol or drug abuse patient.[facility] Patient Care team informatio n (unrecognized section and content) Lpn Rn Relationship Specialty Start Date End Date Rom Faye Jr. PCP - General 02/23/05 Rafael Brown MD [address] [place] [address] Surgeon Cardiac Surg 05/04/23 05/05/23 Lpn Rn Relationship Specialty Start Date End Date Parth Hdz MD PCP - General Family Medicine 02/17/23 Lpn Rn Relationship Specialty Start Date End Date Parth Hdz MD PCP - General Family Medicine 02/17/23 Lpn Rn Relationship Specialty Start Date End Date Parth Hdz MD [address] [place] [address] PCP - General Family Medicine 02/17/23 Lpn Rn Relationship Specialty Start Date End Date Parth Hdz MD [address] [place] [address] PCP - General Family Medicine 02/17/23 Lpn Rn Relationship Specialty Start Date End Date Parth Hdz MD [address] [place] [id number] PCP - General Family Medicine 02/17/23 Lpn Rn Relationship Specialty Start Date End Date Parth Hdz MD [address] [place] [address] PCP - General Family Medicine 02/17/23 Lpn Rn Relationship Specialty Start Date End Date Parth Hdz MD [address] [place] [address] PCP - General Family Medicine 02/17/23 Lpn Rn Relationship Specialty Start Date End Date Parth Hdz MD [address] [place] [address] PCP - General Family Medicine 02/17/23 Lpn Rn Relationship Specialty Start Date End Date Parth Hdz MD [address] [place] [address] PCP - General Family Medicine 02/17/23 Lpn Rn Relationship Specialty Start Date End Date Parth Hdz MD [address] [place] [address] PCP - General Family Medicine 02/17/23 Lpn Rn Relationship Specialty Start Date End Date Parth Hdz MD [address] [place] [address] PCP - General Family Medicine 02/17/23 Lpn Rn Relationship Specialty Start Date End Date Parth Hdz MD [address] [place] [address] PCP - General Family Medicine 02/17/23 Lpn Rn Relationship Specialty Start Date End Date Parth Hdz MD [address] [place] [address] PCP - General Family Medicine 02/17/23 Lpn Rn Relationship Specialty Start Date End Date Parth Hdz MD [address] [place] [address] PCP - General Family Medicine 02/17/23 Lpn Rn Relationship Specialty Start Date End Date Parth Hdz MD [address] [place] [address] PCP - General Family Medicine 02/17/23 Lpn Rn Relationship Specialty Start Date End Date Parth Hdz MD [address] [place] [address] PCP - General Family Medicine 02/17/23 Lpn Rn Relationship Specialty Start Date End Date Parth Hdz MD [address] [place] [address] PCP - General Family Medicine 02/17/23 Shavonne Chowdary NP [address] [place] [address] PCP - [employer] 08/22/24 Lpn Rn Relationship Specialty Start Date End Date Parth Hdz MD [address] [place] [address] PCP - General Family Medicine 02/17/23 Shavonne Chowdary NP [address] [place] [address] PCP - [employer] 08/22/24 Lpn Rn Relationship Specialty Start Date End Date Parth Hdz MD [address] [place] [address] PCP - General Family Medicine 02/17/23 Shavonne Chowdary NP [address] [place] [address] PCP - [employer] 08/22/24 Lpn Rn Relationship Specialty Start Date End Date Parth Hdz MD [address] [place] [address] PCP - General Family Medicine 02/17/23 Shavonne Chowdary NP [address] [place] [address] PCP - [employer] 08/22/24 Lpn Rn Relationship Specialty Start Date End Date Shavonne Chowdary, BRINE PROCESS OPERATOR-HORSE BREAKER [address] [place] [address] PCP - General Nurse Practitioner 10/02/24 Lpn Rn Relationship Specialty Start Date End Date Parth Hdz MD [address] [place] [address] PCP - General Family Medicine 02/17/23 Shavonne Chowdary NP [address] [place] [address] PCP - [employer] 08/22/24 Lpn Rn Relationship Specialty Start Date End Date Parth Hdz MD [address] [place] [address] PCP - General Family Medicine 02/17/23 Shavonne Chowdary NP [address] [place] [address] PCP - [employer] 08/22/24 Lpn Rn Relationship Specialty Start Date End Date Parth Hdz MD [address] [place] [address] PCP - General Family Medicine 02/17/23 Shavonne Chowdary NP [address] [place] [address] JACQUELYN Burns 08/22/24 FOR RECORDS PERTAINING TO PATIENTS WHO ARE [...] BE BASED ON THE PRIMARY CLINICAL RECORDS. [facility]. provides no warranty or guarantee of the accuracy or completeness of information in this document.
[2024-11-16 16:20] LABS: Alanine Aminotransferase 39 U/L (16-63); Albumin Globulin Ratio 1.3; Albumin Level 3.8 g/dL (3.4-5.0); Alkaline Phosphatase 62 U/L (46-116); Anion Gap 12.8; Aspartate Amino Transferase 25 U/L (15-37); BUN Creatinine Ratio 20.6; Bilirubin Total 0.6 mg/dL (0.2-1.0); C Reactive Protein 0.63 mg/dL (<=0.50); Calcium 8.9 mg/dL (8.5-10.1); Chloride 105 mmol/L (98-107); Estimated GFR (African America >60 (>=60 mL/min/1.73m^2); Estimated GFR (Non-African Ame >60 (>=60 mL/min/1.73m^2); Globulin 2.9 g/dL; Glucose 87 mg/dL (74-106); Potassium 3.8 mmol/L (3.5-5.1); Sodium 142 mmol/L (136-145); Total Protein 6.7 g/dL (6.4-8.2)
== END 2024-11-16 15:43 | disposition home or self-care (01) ==
PROVIDERS: PCP Nurse Practitioner; Visit Provider Registered Nurse
DX: M15.0 Primary generalized (osteo)arthritis (principal); Z79.899 Other long term (current) drug therapy
CPT/HCPCS: 36415; 80053; 85025; 85652; 86140

== ENCOUNTER 2025-07-15 15:40 | Outpatient (OUT) | payer BC, SELFPAY ==
--- OUTSIDE RECORDS SUMMARY | 2025-07-04 09:03 | XMS_ITS | Encounter Summary ---
Author Organization [facility] tem Address [id number] [address] [place] [address] Care Team Providers Care Parachute Repairer Name Role Phone Shavonne Chowdary [facility] Primary Care Provider Reason for Visit * Diagnostic Imaging (Routine) - AuthorizedSpecialtyDiagnoses / Procedures Referred By ContactReferred To ContactRadiology Diagnoses Abnormal computed tomography angiography (CTA) Procedures NM bone scan three phase Shavonne Chowdary [facility] [address] [place] [address] Phone: tel: fax: Referral IDStatusReasonStart DateExpiration DateVisits RequestedVisits [id number] Encounter Details DateTypeDepartmentCare Team (Latest Contact Info)Rwrpkipksfr73/13/2025 9:03 AM ESTHospital Encounter [facility] [address] [place] [address] Arrived Social History Tobacco UseTypesPacks/DayYears UsedDateSmoking Tobacco: FormerSmokeless Tobacco: Current Comments:Quit smoking 1 year ago Uses oral nicotine lozenges Alcohol UseStandard Drinks/WeekCommentsYes0 (1 standard drink = 0.6 oz pure alcohol)SociallyChildcareAnswerDate EzyyqesjSqhnsromkAdxkquj57/12/2019Employment AnswerDate TewhtelkTtxpueqeodPnefcsx01/12/2019Hunger ScreeningAnswerDate RecordedWithin the past 12 months we worried whether our food would run out before we got money to buy more.Never True05/30/2025Within the past 12 months the food we bought just didn't last and we didn't have money to get more.Never True05/30/2025Purpose - LifeAnswerDate RecordedPurpose and direction in life Dkgrhek1610/02/2020ex and Gender InformationValueDate RecordedSex Assigned at BirthNot on fileLegal KhbIrxb5303/27/2015 11:47 AM EDTGender IdentityNot on file Sexual OrientationNot on filedocumented as of this encounter Plan of Treatment Not on file documented as of this encounter Procedures Procedure NamePriorityDate/TimeAssociated DiagnosisCommentsNM BONE SCAN THREE YHSMPNxoklnb72/13/2025 12:33 PM EST Abnormal computed tomography angiography (CTA) documented in this encounter Results * NM bone scan three phase (07/04/2025 12:33 PM EST)Anatomical RegionLaterality ModalityNuc MedN/ANuclear MedicineSpecimen (Source)Anatomical Location / LateralityCollection Method / VolumeCollection TimeReceived Time07/04/2025 3:36 PM EST Narrative 07/04/2025 4:43 PM EST NM BONE SCAN THREE PHASE 07/04/2025 9:14 AM INDICATION: Pain between shoulder blades, bone pain COMPARISON: CTA chest 05/30/2025 TECHNIQUE: The patient received an intravenous injection of 25.0 mCi Tc-99m MDP. Gamma camera images of the trunk were obtained during the flow, blood pool, and delayed phases. FINDINGS: Angiographic phase: No abnormal hyperemia. Blood pool phase: Physiological distribution of the radiotracer. ??Symmetric activity without focalabnormality. Delayed phase: Normal, symmetric tracer distribution is demonstrated throughout the skeleton. ??Multifocal uptake in the spine and shoulder joints, likely degenerative change. No abnormal focal uptake. Background activity: Normal. ??Bilateral renal excretion is demonstrated. IMPRESSION: * ??Multilevel thoracic, and lumbar spine osteoarthritis. No evidence of acute osteomyelitis. Approved by Resident: Helio Velazco MD ??on 07/04/2025 3:36 PM Yuriy Kauffman MD have personally reviewed the image(s) and agree with and/or edited the report Finalized by Yruiy Camargo MD on 07/04/2025 4:43 PM Procedure Note Yuriy Camargo MD - 07/04/2025 NM BONE SCAN THREE PHASE 07/04/2025 9:14 AM INDICATION: Pain between shoulder blades, bone pain COMPARISON: CTA chest 05/30/2025 TECHNIQUE: The patient received an intravenous injection of 25.0 mCiTc-99m MDP. Gamma camera images of the trunk were obtained during theflow, blood pool, and delayed phases. FINDINGS: Angiographic phase: No abnormal hyperemia. Blood pool phase: Physiological distribution of the radiotracer.Symmetric activity without focal abnormality. Delayed phase: Normal, symmetric tracer distribution is demonstratedthroughout the skeleton. Multifocal uptake in the spine and shoulderjoints, likely degenerative change. No abnormal focal uptake. Background activity: Normal. Bilateral renal excretion is demonstrated. IMPRESSION: * Multilevel thoracic, and lumbar spine osteoarthritis. No evidence ofacute osteomyelitis. Approved by Resident: Helio Velazco MD on 07/04/2025 3:36 PM Yuriy Kauffman MD have personally reviewed the image(s) and agree withand/or edited the report Finalized by Yuriy Camargo MD on 07/04/2025 4:43 PM Authorizing ProviderResult TypeResult StatusLisa Connor Chowdary APRN-ADITHYAIMG NM ORDERABLESFinal Result documented in this encounter Visit Diagnoses Not on filedocumented in this encounter Care Teams Team MemberRelationshipSpecialtyStart DateEnd Date Shavonne Chowdary, BK-CLOUD SOLUTIONS ARCHITECT PCP - GeneralNurse Practitioner10/02/24documented as of this encounter
--- OUTSIDE RECORDS SUMMARY | 2025-07-04 09:03 | XMS_ITS | Encounter Summary ---
Author Organization [facility] tem Address [id number] [address] [place] [address] Care Team Providers Care Paving Machine Operator Name Role Phone Shavonne Chowdary APRNADITHYA Primary Care Provider Reason for Referral * Diagnostic Imaging (Routine) - AuthorizedSpecialtyDiagnoses / Procedures Referred By ContactReferred To ContactRadiology Diagnoses Abnormal computed tomography angiography (CTA) Procedures NM bone scan three phase Shavonne Chowdary APRN-CNP [address] [place] [address] Phone: tel: fax: Referral IDStatusReasonStart DateExpiration DateVisits RequestedVisits [id number]/[id number]/4/[id number] Reason for Visit * Diagnostic Imaging (Routine) - AuthorizedSpecialtyDiagnoses / Procedures Referred By ContactReferred To ContactRadiology Diagnoses Abnormal computed tomography angiography (CTA) Procedures NM bone scan three phase Shavonne Chowdary APRN-CNP [address] [place] [address] Phone: tel: fax: Referral IDStatusReasonStart DateExpiration DateVisits RequestedVisits [id number]/[id number]/4/202655 Encounter Details DateTypeDepartmentCare Team (Latest Contact Info)Qzsoxpckwnl18/13/2025 9:03 AM ESTHospital Encounter [facility] - [facility] Med[facility] [address] [place] [address] Abnormal computed tomography angiography (CTA) Social History Tobacco UseTypesPacks/DayYears UsedDateSmoking Tobacco: FormerSmokeless Tobacco: Current Comments:Quit smoking 1 year ago Uses oral nicotine lozenges Alcohol UseStandard Drinks/WeekCommentsYes0 (1 standard drink = 0.6 oz pure alcohol)SociallyChildcareAnswerDate LospdbxcGccecbmduKkkjptu80/12/2019Employment AnswerDate DrxklocqLppenclemmPwjsmvg42/12/2019Hunger ScreeningAnswerDate RecordedWithin the past 12 months we worried whether our food would run out before we got money to buy more.Never True05/30/2025Within the past 12 months the food we bought just didn't last and we didn't have money to get more.Never True05/30/2025Purpose - LifeAnswerDate RecordedPurpose and direction in life Imyddkn3210/02/2020ex and Gender InformationValueDate RecordedSex Assigned at BirthNot on fileLegal NqdTzcn8103/27/2015 11:47 AM EDTGender IdentityNot on file Sexual OrientationNot on filedocumented as of this encounter Plan of Treatment Not on file documented as of this encounter Procedures Procedure NamePriorityDate/TimeAssociated DiagnosisCommentsNM BONE SCAN THREE PFPKVPbnwzmt34/13/2025 12:33 PM EST Abnormal computed tomography angiography [...] with and/or edited the report Finalized by Yuriy Camargo MD on 07/04/2025 4:43 PM Procedure [...] PM Authorizing ProviderResult TypeResult StatusLisa Connor Chowdary FINANCIAL SERVICES CONSULTANT-CNPIMG NM ORDERABLESFinal Result documented in this encounter Visit Diagnoses Diagnosis Abnormal computed tomography angiography (CTA) documented in this encounter Administered Medications Medication OrderMAR ActionAction DateDoseRateSite kit prep Zi-98o-dtbukapdz sod 20 mg recon soln 25 millicurie 25 millicurie, intravenous, Once in imaging, contrast, Radiopharmaceutical, Starting on Tresa 07/04/25 at 0914, For 1 dose, Indications: diagnostic imaging Indications:diagnostic otitcrnWncsy93/13/2025 9:05 AM EST25 millicuries documented in this encounter Care Teams Team MemberRelationshipSpecialtyStart DateEnd Date Shavonne Chowdary, FINANCIAL SERVICES CONSULTANT-SUPERVISOR COMMISSARY [employer]ODUCTION PCP - GeneralNurse Practitioner10/02/24documented as of this encounter
--- OUTSIDE RECORDS SUMMARY | 2025-07-04 11:53 | XMS_ITS | Encounter Summary ---
Author Organization [facility] tem Address [id number] [address] [place] [address] Care Team Providers Care Well Drill Operator Name Role Phone Shavonne Chowdary [facility]NM[facility] Primary Care Provider Reason for Visit * Diagnostic Imaging (Routine) - AuthorizedSpecialtyDiagnoses / Procedures Referred By ContactReferred To ContactRadiology Diagnoses Abnormal computed tomography angiography (CTA) Procedures NM bone scan three phase Shavonne Chowdary APRNMASSACHUS[facility] [address] [place] [address] Phone: tel: fax: Referral IDStatusReasonStart DateExpiration DateVisits RequestedVisits [id number] Encounter Details DateTypeDepartmentCare Team (Latest Contact Info)Hhvuqutfyal06/13/2025 11:53 AM ESTHospital Encounter [facility] - Nuclear MedIcine [address] [place] [address] Arrived Social History Tobacco UseTypesPacks/DayYears UsedDateSmoking Tobacco: FormerSmokeless Tobacco: Current Comments:Quit smoking 1 year ago Uses oral nicotine lozenges Alcohol UseStandard Drinks/WeekCommentsYes0 (1 standard drink = 0.6 oz pure alcohol)SociallyChildcareAnswerDate BuvzjzhfWnirbpmviVwtgmcq48/12/2019Employment AnswerDate ApbrcsydUaqgtrmlxwCzluxgv22/12/2019Hunger ScreeningAnswerDate RecordedWithin the past 12 months we worried whether our food would run out before we got money to buy more.Never True05/30/2025Within the past 12 months the food we bought just didn't last and we didn't have money to get more.Never True05/30/2025Purpose - LifeAnswerDate RecordedPurpose and direction in life Cbglyqa8310/02/2020ex and Gender InformationValueDate RecordedSex Assigned at BirthNot on fileLegal KcbJvmn7603/27/2015 11:47 AM EDTGender IdentityNot on file Sexual OrientationNot on filedocumented as of this encounter Plan of Treatment Not on file documented as of this encounter Procedures Procedure NamePriorityDate/TimeAssociated DiagnosisCommentsNM BONE SCAN THREE CEWSDYdjkmkb21/13/2025 12:33 PM EST Abnormal computed tomography angiography [...] Teams Team MemberRelationshipSpecialtyStart DateEnd Date Shavonne Chowdary, BK-OPTICAL GLASS INSPECTOR PCP - GeneralNurse Practitioner10/02/24documented as of this encounter
--- OUTSIDE RECORDS SUMMARY | 2025-07-15 15:45 | XMS_ITS | Clinical Summary ---
Author Organization [facility] Address [address] [place], [place] [address] Care Team Providers Care Prepress Specialist Name Role Phone Rom Faye Jr. Primary Care Provider Unava ilable Allergies Active AllergyReactionsCriticalityNoted DateCommentsMeperidine (Pf)Mental Status TgdlvdGiuyru07/20/2014MorphineMental Status DnsmxsCagfzf94/20/2014Penicillins 03/03/2005 Medications MedicationSigDispense QuantityRefillsLast FilledStart DateEnd DateStatus diazepam (VALIUM) 5 mg tablet Take 5 mg by mouth as needed.Active CPAP USE WHEN SLEEPING FOR SLEEP APNEAActive HYDROcodone-Acetaminophen (NORCO) 10-325 mg per tablet Take 1 tablet by mouth every 6 hours as needed.Active Active Problems ProblemNoted DateDiagnosed DateMedial meniscus tear07/15/2014rthritis of right knee07/15/2014Neurogenic claudication due to lumbar spinal holruzqj03/22/2014Low back pain on right side with iwdfrpcg89/22/2014Plantar neuroma of right foot 06/12/2014Plantar oohwjqxzb82/20/2014Calcaneal spur06/10/2014Periostitis of ankle and foot06/10/2014Common peroneal nerve omzqbtxexlu19/20/2014 Social History Tobacco UseTypesPacks/DayYears UsedDateSmoking Tobacco: Every YbkGzgphebrkp140 Smokeless Tobacco: NeverAlcohol UseStandard Drinks/WeekCommentsYes0 (1 standard drink = 0.6 oz pure alcohol)socialSex and Gender InformationValueDate Recorded Sex Assigned at BirthNot on fileLegal HuvXcmx06/02/2012 7:31 AM ESTGender IdentityNot on fileSexual OrientationNot on file Last Filed Vital Signs Vital SignReadingTime TakenCommentsBlood Tdvusyzj675/7008/02/2014 6:00 PM EST Bwghr302208/02/2014 6:00 PM FXWOlcmbpsgrkl56 ??C (98.6 ??F)08/02/2014 4:00 PM EST Respiratory Gano411010/03/2013 6:00 PM ESTOxygen Fmtegfwqfm50%08/02/2014 6:00 PM ESTInhaled Oxygen Concentration--Ibumkd293.5 kg (290 lb)08/02/2014 1:47 PM EST Xcxdat522.8 cm (5' 10 )08/02/2014 1:47 PM ESTBody Mass Index41.6108/02/2014 1:47 PM EST Plan of Treatment Health MaintenanceDue DateLast DoneCommentsAnxiety Skwuracho35/02/1984Depression Lzdfdrayc77/02/1984HIV Utxvyegtr24/02/1984Hepatitis C Wvskhciqa70/02/1984 DTaP,Tdap,Td Vaccine (1 - Tdap)1985Lipid Civpqxqfm28/02/2001CT Xslxstmczhjp11/02/2011Cologuard (FIT-DNA)05/23/20115519Qlydsjtrxus77/02/2011 Colorectal Cancer Fukwkoeal58/02/2011Diabetes Edwjgjfga66/02/2011Fecal Occult Blood2011Prostate Cancer Screening Dmsmwpxdez48/02/2011Sigmoidoscopy 2011Pneumococcal Vaccine: 50+ (1 of 1 - PCV)2016Shingrix Vaccine (1 of 2)2016Covid-19 Vaccine (1 - 2024- season)2025Influenza Vaccine (#1)2025 [place] [address] Care Teams Team MemberRelationshipSpecialtyStart DateEnd Date Rom Faye Jr. PCP - General02/23/05
--- OUTSIDE RECORDS SUMMARY | 2025-07-15 15:45 | XMS_ITS | Encounter Summary ---
Author Organization [facility] tem Address [id number] [address] [place] [address] Care Team Providers Care Cam Milling Machine Operator Name Role Phone Shavonne Chowdary APRN-LINE APPLIANCE ASSEMBLER Primary Care Provider Encounter Details DateTypeDepartmentCare Team (Latest Contact Info)Kueidywqsag60/11/2025Travel Social History Tobacco UseTypesPacks/DayYears UsedDateSmoking Tobacco: FormerSmokeless Tobacco: Current Comments:Quit smoking 1 year ago Uses oral nicotine lozenges Alcohol UseStandard Drinks/WeekCommentsYes0 (1 standard drink = 0.6 oz pure alcohol)SociallyChildcareAnswerDate XkzuyysdRxoijvxabYnrvorz89/12/2019Employment AnswerDate EebppccqAaxvxdligtQxylmcx94/12/2019Hunger ScreeningAnswerDate RecordedWithin the past 12 months we worried whether our food would run out before we got money to buy more.Never True05/30/2025Within the past 12 months the food we bought just didn't last and we didn't have money to get more.Never True05/30/2025Purpose - LifeAnswerDate RecordedPurpose and direction in life Vpdehus2710/02/2020ex and Gender InformationValueDate RecordedSex Assigned at BirthNot on fileLegal ZwbOhjx3903/27/2015 11:47 AM EDTGender IdentityNot on file Sexual OrientationNot on filedocumented as of this encounter Plan of Treatment Not on file documented as of this encounter Visit Diagnoses Not on filedocumented in this encounter Care Teams Team MemberRelationshipSpecialtyStart DateEnd Date Shavonne Chowdary, BRANCH SERVICE REPRESENTATIVE-LINE APPLIANCE ASSEMBLER PCP - GeneralNurse Practitioner10/02/24documented as of this encounter
--- OUTSIDE RECORDS SUMMARY | 2025-07-15 15:45 | XMS_ITS | Clinical Summary ---
Author Organization [facility] Address [address] [place] [address] Phone Care Team Providers Care Property Damage Claims Adjustor Name Role Phone Unavailable Primary Care Provider Unavailabl e Social History Tobacco UseTypesPacks/DayYears UsedDateSmoking Tobacco: Never AssessedSex and Gender InformationValueDate RecordedSex Assigned at BirthNot on fileLegal Sex Male03/23/2023 5:09 AM EDTGender IdentityNot on fileSexual OrientationNot on file Plan of Treatment Not on file
--- OUTSIDE RECORDS SUMMARY | 2025-07-15 15:45 | XMS_ITS | Clinical Summary ---
Author Organization Collectric tem Address [id number] [address] [place] [address] Care Team Providers Care Senior Digital Designer Name Role Phone Shavonne Chowdary APRN-ENT NURSE Primary Care Provider Allergies Active AllergyReactionsCriticalityNoted DateCommentsMeperidineHallucinationsLow 05/01/2018Morphine (Pf)HqopzmejliatuuXxm05/10/2018PenicillinsShortness Of Breath High05/01/2018 Medications MedicationSigDispense QuantityRefillsLast FilledStart DateEnd DateStatus amitriptyline (ELAVIL) 50 mg tablet Take 1 tablet (50 mg total) by mouth nightly as needed for sleep.04/30/2018 Active cyclobenzaprine (FLEXERIL) 10 mg tablet Take 1 tablet (10 mg total) by mouth 2 (two) times a day as needed.5003/28/2018 Active fluticasone (FLONASE) 50 mcg/actuation nasal spray Administer 2 sprays into each nostril in the morning.Active lisinopril-hydroCHLOROthiazide (PRINZIDE,ZESTORETIC) 10-12.5 mg per tablet Take 1 tablet by mouth in the morning.Active montelukast (SINGULAIR) 10 mg tablet Take 1 tablet (10 mg total) by mouth in the morning.04/30/2018Active cetirizine (ZyrTEC) 10 mg tablet Take 1 tablet (10 mg total) by mouth in the morning.Active nabumetone (RELAFEN) 750 mg tablet Take 1 tablet (750 mg total) by mouth in the morning and 1 tablet (750 mg total) before bedtime.09/02/2022ctive hydroxychloroquine (PLAQUENIL) 200 mg tablet Take 1 tablet (200 mg total) by mouth in the morning and 1 tablet (200 mg total) before bedtime.04/10/2024ctive tadalafiL (CIALIS) 5 mg tablet Take 1 tablet (5 mg total) by mouth in the morning. Do not exceed more than one tablet in 24 hours. 5mg daily for urinary sx 10mg prn.Active Active Problems ProblemNoted DateDiagnosed DateDisorder of fekohv2704/05/2023Lumbosacral spondylosis without gbxvgddveb46/10/2018 Overview (05/01/2018): Added automatically from request for surgery [id number] Encounters DateTypeDepartmentCare AbgzTrytzgjwizy71/13/2025 11:53 AM ESTHospital Encounter [facility] [address] [place] [address] Nhhkhhs3707/04/2025 9:03 AM ESTHospital Encounter [facility] [address] [place] [address] Pqhddfn0607/04/2025 9:03 AM ESTHospital Encounter [facility] Nuclear MedIcine [address] [place] [address] Abnormal computed tomography angiography (CTA)07/02/20258565Uluvcw47/09/2025 2:07 PM EDT - 05/30/2025 5:18 PM EDTEmergency [facility] [address] [place] [address] Leonardo Miner MD Chest pain, unspecified type (Primary Dx); Bronchopneumonia Discharge Disposition: Home05/30/2025Travelfrom Last 3 Months Family History Medical HistoryRelationNameCommentsHeart diseaseFatherAneurysmMotherRelationName StatusCommentsFatherMother Social History Tobacco UseTypesPacks/DayYears UsedDateSmoking Tobacco: FormerSmokeless Tobacco: Current Tobacco Cessation:Ready to Q uit: Not Asked; Counseling Given: Not Answered Comments:Quit smoking 1 year ago Uses oral nicotine lozenges Alcohol UseStandard Drinks/WeekCommentsYes0 (1 standard drink = 0.6 oz pure alcohol)SociallyChildcareAnswerDate OzkyhlfnGipsgbjioNstvyrs93/12/2019Employment AnswerDate VzkzstwyTzgcfrphxuZatrwjs17/12/2019Hunger ScreeningAnswerDate RecordedWithin the past 12 months we worried whether our food would run out before we got money to buy more.Never True05/30/2025Within the past 12 months the food we bought just didn't last and we didn't have money to get more.Never True05/30/2025Purpose - LifeAnswerDate RecordedPurpose and direction in life Eoaqyer2310/02/2020ex and Gender InformationValueDate RecordedSex Assigned at BirthNot on fileLegal FicBfwl4503/27/2015 11:47 AM EDTGender IdentityNot on file Sexual OrientationNot on file Last Filed Vital Signs Vital SignReadingTime TakenCommentsBlood Nyydjaje507/7805/30/2025 2:39 PM EDT Nisah583905/30/2025 2:39 PM XMTFporqffxjfd27.6 ??C (97.9 ??F)05/30/2025 2:12 PM EDTRespiratory Jhab823 2:39 PM EDTOxygen Rxozyxfibv86%05/30/2025 2:12 PM EDTInhaled Oxygen Concentration--Penxki494.8 kg (284 lb)05/30/2025 2:12 PM EDT Vozavs451.8 cm (5' 10 )05/30/2025 2:12 PM EDTBody Mass Index40.7505/30/2025 2:12 PM EDT Plan of Treatment Health MaintenanceDue DateLast DoneCommentsTobacco Rjnseruges1966 Depression Whnvehjjl83/02/1978Adult BMI Follow Up Plan1984DTaP,Tdap and Td Vaccines (1 - Tdap)1985Zoster (Shingles) Vaccine (1 of 2)2016 Influenza Glihtpb88/01/459548/12/2023, 06/08/2022, 07/02/2020Adult BMI Screening Tobacco Tczumsjqn92 Medical Devices Not on file Procedures Procedure NamePriorityDate/TimeAssociated DiagnosisCommentsNM BONE SCAN THREE ZFADVDbqinoh04/13/2025 12:33 PM EST Abnormal computed tomography angiography (CTA) TROP I, HIGH SENSITIVITY 1 CGHZDRKF31/09/2025 3:[address] CTA ABD AND UDSPVGBRKR14/09/2025 3:[address] CTA TSTRQJYCJ08/09/2025 3:31 PM EDT EXTRA TUBES BLUE FFJZagmudj26/09/2025 2:32 PM EDT EXTRA KLNNWEwszbnt77/09/2025 2:32 PM EDT TROPONIN I, HIGH SENSITIVITY 0 XJHYUMNP22/09/2025 2:32 PM EDT TROPONIN I, HIGH SENSITIVITY 0 EBJGNESH10/09/2025 2:32 PM EDT B-TYPE NATRIURETIC JZLZDWFWTCF62/09/2025 2:32 PM EDT COMPREHENSIVE METABOLIC QNTOZBXBA24/09/2025 2:32 PM EDT CBC WITH AUTO AJWYKHNMOAFHRXFM38/09/2025 2:32 PM EDT ECG 12-RAPNVNBY08/09/2025 2:11 PM EDTfrom Last 3 Months Results * NM bone scan three phase [...] 07/04/2025 4:43 PM Authorizing ProviderResult TypeResult StatusLisa Ryan Aichholz PROFESSIONAL SERVICES CONSULTANT-CNPIMG NM ORDERABLESFinal Result * Troponin I, High Sensitivity 1 Hour (05/30/2025 3:37 PM EDT)ComponentValueRef RangeTest MethodAnalysis TimePerformed AtPathologist SignatureTROPONIN I, HIGH SENSITIVITY2<21 ng/L1 4:38 PM EDTPROMEDGOOD [facility] Specimen (Source)Anatomical Location / LateralityCollection Method / Volume Collection TimeReceived TimeBloodVenous blood / UnknownVenipuncture / Unknown 05/30/2025 3:37 PM EDT1 4:05 PM EDT Narrative Authorizing ProviderResult TypeResult StatusJoalison CHILDERS BLOOD ORDERABLESFinal ResultPerforming OrganizationAddressCity/State/ZIP CodePhone Number [facility] [address] [place] [address], * CT angiogram abdomen and pelvis (05/30/2025 3:34 PM EDT)Anatomical Region LateralityModalityBody, Abdomen, Body CoveraN/AComputed TomographySpecimen (Source)Anatomical Location / LateralityCollection Method / VolumeCollection TimeReceived Time05/30/2025 3:47 PM EDT Narrative 05/30/2025 3:56 PM EDT CTA abdomen and pelvis with contrast, 05/30/2025 History: Chest pain, aortic aneurysm Comparison: None Technique: 100 ml of Omnipaque 350 nonionic contrast injected intravenously without reported complication. Thin section axial images of the abdomen and pelvis obtained with multiplanar reformatted 3-D reconstructed MIP images performed. Automated exposure control was utilized. Findings: The abdominal aorta is normal in caliber with minimal atherosclerotic calcification. No aortic dissection. The celiac, superior mesenteric, inferior mesenteric and bilateral renal arteries are patentwith no ostial stenosis. No visceral or renal artery aneurysm. Bilateral common, internal and external iliac arteries are patent with normal caliber. No iliac artery dissection. Incidental noteof 2 right and 3 left renal arteries arising from the aorta. For evaluation of intrathoracic structures, please refer to report from concurrent CTA chest. The liver, spleen, pancreas and gallbladder are unremarkable. Right adrenal myelolipoma. Left adrenal gland is unremarkable. Simple left renal cyst requires no additional evaluation. Symmetric renal enhancement. No hydronephrosis or perinephric fluid collection. Unremarkable appearance of the urinary bladder. Mild midline hypertrophy of the prostate with mass effect at the base of the bladder. Coarse prostatic calcifications noted. Colonic diverticular disease without active inflammation. No bowel obstruction. Normal appendix. Nofree air or fluid. No mesenteric lymph node enlargement. Right-sided IVC. Patent portal vein. No pathologic enlargement of retroperitoneal or pelvic lymph nodes. Multiple fat-containing ventral hernias. Multilevel degenerative disc and facet disease involving the visible spine, notably the lumbar spine. No acute osseous abnormality IMPRESSION: * ??No acute vascular abnormality * ??Additional incidental/chronic findings as described. All CT scans at this facility use dose modulation, iterative reconstruction, and/or weight based dosing when appropriate to reduce radiation dose to as low as reasonably achievable. Finalized by Ricki Sears MD on 05/30/2025 3:56 PM Procedure Note Ricki Sears MD - 05/30/2025 CTA abdomen and pelvis with contrast, 05/30/2025 History: Chest pain, aortic aneurysm Comparison: None Technique: 100 ml of Omnipaque 350 nonionic contrast injectedintravenously without reported complication. Thin section axial images ofthe abdomen and pelvis obtained with multiplanar reformatted 3-Dreconstructed MIP images performed. Automated exposure control wasutilized. Findings: The abdominal aorta is normal in caliber with minimal atherosclerotic calcification. No aortic dissection. The celiac, superior mesenteric,inferior mesenteric and bilateral renal arteries are patent with no ostialstenosis. No visceral or renal artery aneurysm. Bilateral common, internaland external iliac arteries are patent with normal caliber. No iliac artery dissection. Incidental note of 2 right and 3 left renal arteries arisingfrom the aorta. For evaluation of intrathoracic structures, please refer to report from concurrent CTA chest. The liver, spleen, pancreas and gallbladder are unremarkable. Rightadrenal myelolipoma. Left adrenal gland is unremarkable. Simple left renal cyst requires no additional evaluation. Symmetric renal enhancement. No hydronephrosis or perinephric fluid collection.Unremarkable appearance of the urinary bladder. Mild midline hypertrophyof the prostate with mass effect at the base of the bladder. Coarseprostatic calcifications noted. Colonic diverticular disease without active inflammation. No bowelobstruction. Normal appendix. No free air or fluid. No mesenteric lymphnode enlargement. Right-sided IVC. Patent portal vein. No pathologic enlargement ofretroperitoneal or pelvic lymph nodes. Multiple fat-containing ventralhernias. Multilevel degenerative disc and facet disease involving thevisible spine, notably the lumbar spine. No acute osseous abnormality IMPRESSION: * No acute vascular abnormality * Additional incidental/chronic findings as described. All CT scans at this facility use dose modulation, iterativereconstruction, and/or weight based dosing when appropriate to reduceradiation dose to as low as reasonably achievable. Finalized by Ricki Sears MD on 05/30/2025 3:56 PM Authorizing ProviderResult TypeResult StatusJonathocipriano Miner MDDayan CT ORDERABLESFinal Result * CT angiogram chest (05/30/2025 3:31 PM EDT)Anatomical RegionLateralityModality Lung, Body, Chest, Vascular, Body CoveraN/AComputed TomographySpecimen (Source)Anatomical Location / LateralityCollection Method / VolumeCollection TimeReceived Time05/30/2025 3:45 PM EDT Narrative 05/30/2025 3:[address] CTA CHEST CLINICAL INDICATION: known h/o aneurysm, worsening CP and periscapular pain. COMPARISON STUDY: None available at time of dictation.. TECHNIQUE: ??CT was performed using 100 mL Omnipaque 350 intravenous contrast, without complication. ??Coronal, sagittal and 3-D volume rendered maximum intensity projection images generated and reviewed under concurrent physician supervision. FINDINGS: CHEST: Heart & Pericardium: Unremarkable cardiac morphology. No significant pericardial effusion. Thoracic Aorta & Great Vessels: Normal in diameter. Pulmonary Arteries: No main or lobar pulmonary artery embolus. ??Phase of contrast limits evaluation of the segmental and subsegmental arteries. Lymph Nodes: No enlarged thoracic lymph nodes. Mediastinum & Esophagus: Unremarkable. Central Airway: Bronchial wall thickening right lower lobe, few filling defects. Lungs: tree-in-bud nodularity right lower lobe, mild architectural distortion. Pleura: No pleural effusion or pneumothorax. Lower Neck & Thyroid: Unremarkable. Visualized Upper Abdomen: Findings dictated separately.. Thoracic Spine & Chest Wall: No suspicious osseous lesion. Nonspecific 1.1 cm groundglass lucency T7 vertebral body, 1.2 cm manubrium. IMPRESSION: 1. ??No CTA evidence of acute aortic syndrome. 2. ??Bronchial wall thickening, tree-in-bud nodularity right lower lobe, consider bronchopneumonia. 3. ??Nonspecific groundglass lucencies T7 vertebral body and manubrium. Consider follow-up bone scan. All CT scans at this facility use dose modulation, iterative reconstruction, and/or weight based dosing when appropriate to reduce radiation dose to as low as reasonably achievable. Finalized by Rogelio Lyons on 05/30/2025 3:51 PM Procedure Note Rogelio Lyons MD - 05/30/2025 CT CTA CHEST CLINICAL INDICATION: known h/o aneurysm, worsening CP and periscapularpain. COMPARISON STUDY: None available at time of dictation.. TECHNIQUE: CT was performed using 100 mL Omnipaque 350 intravenouscontrast, without complication. Coronal, sagittal and 3-D volume renderedmaximum intensity projection images generated and reviewed underconcurrent physician supervision. FINDINGS: CHEST: Heart & Pericardium: Unremarkable cardiac morphology. No significantpericardial effusion. Thoracic Aorta & Great Vessels: Normal in diameter. Pulmonary Arteries: No main or lobar pulmonary artery embolus. Phase ofcontrast limits evaluation of the segmental and subsegmental arteries. Lymph Nodes: No enlarged thoracic lymph nodes. Mediastinum & Esophagus: Unremarkable. Central Airway: Bronchial wall thickening right lower lobe, few fillingdefects. Lungs: tree-in-bud nodularity right lower lobe, mild architecturaldistortion. Pleura: No pleural effusion or pneumothorax. Lower Neck & Thyroid: Unremarkable. Visualized Upper Abdomen: Findings dictated separately.. Thoracic Spine & Chest Wall: No suspicious osseous lesion. Nonspecific 1.1cm groundglass lucency T7 vertebral body, 1.2 cm manubrium. IMPRESSION: 1. No CTA evidence of acute aortic syndrome. 2. Bronchial wall thickening, tree-in-bud nodularity right lower lobe,consider bronchopneumonia. 3. Nonspecific groundglass lucencies T7 vertebral body and manubrium.Consider follow-up bone scan. All CT scans at this facility use dose modulation, iterativereconstruction, and/or weight based dosing when appropriate to reduceradiation dose to as low as reasonably achievable. Finalized by Rogelio Lyons on 05/30/2025 3:51 PM Authorizing ProviderResult TypeResult Malik PALOMINOG CT ORDERABLESFinal Result * Troponin I, High Sensitivity 0 Hour (05/30/2025 2:32 PM EDT)ComponentValueRef RangeTest MethodAnalysis TimePerformed AtPathologist SignatureTROPONIN I, HIGH SENSITIVITY2<21 ng/L1 3:04 PM [facility] Specimen (Source)Anatomical Location / LateralityCollection Method / Volume Collection TimeReceived TimeBloodVenous blood / UnknownVenipuncture / Unknown 05/30/2025 2:32 PM EDT1 2:34 PM EDT Narrative Authorizing ProviderResult NicoleResult Malik CHILDERS BLOOD ORDERABLESFinal ResultPerforming OrganizationAddressCity/State/ZIP CodePhone Number [address] * Light Blue Top (05/30/2025 2:32 PM EDT)ComponentValueRef RangeTest Method Analysis TimePerformed AtPathologist SignatureExtra TubeAuto Resulted 05/30/2025 4:02 PM EDMEM[facility]IAL [facility]ITALpecimen (Source) Anatomical Location / LateralityCollection Method / VolumeCollection Time Received TimeBloodVenous blood / Bauvmpv2205/30/2025 2:32 PM EDT1 2:35 PM EDT Narrative Authorizing ProviderResult TypeResult Malik CHIDLERS BLOOD ORDERABLESFinal ResultPerforming OrganizationAddressCity/State/ZIP CodePhone Number [address] [place] [address], [place] * CBC auto differential (05/30/2025 2:32 PM EDT)ComponentValueRef RangeTest MethodAnalysis TimePerformed AtPathologist SignatureWBC6.94 - 11 x10E9/L 05/30/2025 2:41 PM EDTPPREMIER HEALTH MIAMI VALLEY HOSPITALRBC Count4.434.1 - 5.7 X10E12/L1 2:41 PM EDTPPREMIER [facility]ALTH [facility] Iixglgcuob47.513 - 17 g/dL05/30/2025 2:41 PM EDTPPREMIER HEALTH MIAMI VALLEY HOSPITALHematocrit42.239 - 50 %05/30/2025 2:41 PM EDTPPREMIER HEALTH MIAMI VALLEY HOSPITALMCV9580 - 100 fL05/30/2025 2:41 PM EDTPPREMIER HEALTH MIAMI VALLEY HOSPITALMCH32.727 - 34 pg05/30/2025 2:41 PM EDTPPREMIER HEALTH MIAMI VALLEY HOSPITALMCHC34.332 - 36 g/dL05/30/2025 2:41 PM EDTPPREMIER HEALTH MIAMI VALLEY HOSPITALRDW12.311.5 - 15 %05/30/2025 2:41 PM EDCLERMONT COUNTY HOSPITALPlatelet Mvdhj655535 - 450 X10E9/L1 2:41 PM EDT [facility]ENTERMPV7.27 - 12 fL05/30/2025 2:41 PM EDT [facility]ENTERNeutrophils %65.6%05/30/2025 2:41 PM EDT [facility]ENTERLymphocytes %24.2%05/30/2025 2:41 PM EDT [facility]ENTERMonocytes %7.3%05/30/2025 2:41 PM EDT [facility]ENTEREosinophils %1.7%05/30/2025 2:41 PM EDT [facility]ENTERBasophils %1.2%05/30/2025 2:41 PM EDT [facility]ENTERNeutrophils Absolute (A)4.51.5 - 6.6 10*3/uL05/30/2025 2:41 PM EDCLERMONT COUNTY HOSPITALLymphocytes Absolute1.71.0 - 3.5 10*3/uL05/30/2025 2:41 PM EDTPPREMIER HEALTH MIAMI VALLEY HOSPITALMonocytes Absolute0.50.0 - 0.9 10*3/uL05/30/2025 2:41 PM EDCLERMONT COUNTY HOSPITALEosinophils Absolute0.10.0 - 0.4 10*3/uL05/30/2025 2:41 PM EDCLERMONT COUNTY HOSPITALBasophils Absolute0.10.0 - 0.2 10*3/uL05/30/2025 2:41 PM [facility]ITALDifferential TypeAUTOMATED FECGNERDEBSW96/09/2025 2:41 PM [facility]ITALpecsouth [facility] (Source)Anatomical Location / LateralityCollection Method / VolumeCollection TimeReceived TimeBloodVenous blood / UnknownVenipuncture / Zexbsux6205/30/2025 2:32 PM EDT1 2:34 PM EDT Narrative Authorizing ProviderResult TypeResult StatusLeonardo CHILDERS BLOOD ORDERABLESFinal ResultPerforming OrganizationAddressCity/State/ZIP CodePhone Number [address] [address], * B-type natriuretic peptide (05/30/2025 2:32 PM EDT)ComponentValueRef RangeTest MethodAnalysis TimePerformed AtPathologist AwixaupqbGKV35<=100 pg/mL05/30/2025 3:06 PM EDMEMORIAL HEALTH SYSTEM SELBY GENERAL HOSPITALpecimen (Source)Anatomical Location / LateralityCollection Method / VolumeCollection TimeReceived Time BloodVenous blood / UnknownVenipuncture / Mxcjrfx3005/30/2025 2:32 PM EDT 05/30/2025 2:34 PM EDT Narrative Authorizing ProviderResult TypeResult StatusLeonardo CHILDERS BLOOD ORDERABLESFinal ResultPerforming OrganizationAddressCity/State/ZIP CodePhone Number [facility] [address] [place] [address], * Comprehensive metabolic panel (05/30/2025 2:32 PM EDT)ComponentValueRef Range Test MethodAnalysis TimePerformed AtPathologist AeylvkuwgTSIJZH660671 - 146 mmol/L1 2:55 PM EDTPPREMIER HEALTH MIAMI VALLEY HOSPITALPOTASSIUM3.63.5 - 5.0 mmol/L1 2:55 PM EDTPPREMIER HEALTH MIAMI VALLEY HOSPITALCHLORIDE [address] - 109 mmol/L1 2:55 PM EDCLERMONT COUNTY [facility]OSPITAL CARBON SPQTLXB4720 - 32 mmol/L1 2:55 PM EDTPPREMIER HEALTH MIAMI VALLEY HOSPITALANION GAP85 - 15 mmol/L1 2:55 PM EDCLERMONT COUNTY HOSPITALBLOOD UREA PRWKKIHO700 - 23 mg/dL05/30/2025 2:55 PM EDT [facility]ENTERCREATININE0.820.70 - 1.20 mg/dL05/30/2025 2:55 PM EDCLERMONT COUNTY HOSPITALComment:METHOD TRACEABLE TO IDMS BQOTGJVBYFIYXKY0925 - 99 mg/dL05/30/2025 2:55 PM EDCLERMONT COUNTY HOSPITALCALCIUM8.68.5 - 10.5 mg/dL05/30/2025 2:55 PM EDCLERMONT COUNTY HOSPITALTOTAL PROTEIN6.96.0 - 8.0 g/dL05/30/2025 2:55 PM EDTPPREMIER HEALTH MIAMI VALLEY HOSPITALALBUMIN3.93.2 - 5.3 g/dL05/30/2025 2:55 PM EDT [facility]ENTERALKALINE BMUVBYZVUFX0797 - 130 U/L 05/30/2025 2:55 PM EDTPPREMIER HEALTH MIAMI VALLEY HOSPITALAST19<=41 U/L 05/30/2025 2:55 PM EDTPPREMIER HEALTH MIAMI VALLEY HOSPITALALT23<=40 U/L 05/30/2025 2:55 PM EDTPPREMIER HEALTH MIAMI VALLEY HOSPITALBILIRUBIN,TOTAL0.90.3 - 1.2 mg/dL05/30/2025 2:55 PM EDTPPREMIER HEALTH MIAMI VALLEY HOSPITALEGFR Non- Race Dependent>90>=60 ml/min/1.73sq.m1 2:55 PM EDCLERMONT COUNTY HOSPITALComment: eGFR not reported due to non-numeric value for Creatinine. Reported eGFR is based on the CKD-EPI 2020 equation that does not use a race coefficient. Specimen (Source)Anatomical Location / LateralityCollection Method / Volume Collection TimeReceived TimeBloodVenous blood / UnknownVenipuncture / Unknown 05/30/2025 2:32 PM EDT1 2:34 PM EDT Narrative Authorizing ProviderResult TypeResult StatusLeonardo CHILDERS BLOOD ORDERABLESFinal ResultPerforming OrganizationAddressCity/State/ZIP CodePhone Number [facility] [address] [place] [address], * ECG 12 lead (05/30/2025 2:11 PM EDT)Specimen (Source)Anatomical Location / LateralityCollection Method / VolumeCollection TimeReceived Time05/30/2025 2:11 PM EDT Narrative Authorizing ProviderResult TypeResult StatusLeonardo Miner MDECG ORDERABLES Final ResultPerforming OrganizationAddressCity/State/ZIP CodePhone Number TRACEMASTERVUE from Last 3 Months Insurance Care Teams Team MemberRelationshipSpecialtyStart DateEnd Date DayannaShavonne adam, PROFESSIONAL SERVICES CONSULTANT-ENT NURSE PCP - GeneralNurse Practitioner10/02/24
--- OUTSIDE RECORDS SUMMARY | 2025-07-15 15:45 | XMS_ITS | Clinical Summary ---
Author Organization [facility] Healthcare Address [address] [place] [address] Care Team Providers Care Drawer In Plain Loom Name Role Phone Parth Hdz MD Primary Care Provider [phone] Shavonne Chowdary SENIOR IT ASSISTANT Unavailable [phone] Allergies Active AllergyReactionsCriticalityNoted DateCommentsMeperidineHallucinations 12/21/2023Meperidine Hcl08/24/2023 Other Reaction(s): hallucination Yaiocepr00/03/2024 Other Reaction(s): hallucination Penicillin GGI bfrfsttmara03/03/2024 Medications MedicationSigDispense QuantityRefillsLast FilledStart DateEnd DateStatus cyclobenzaprine (Flexeril) 10 MG tablet Take 1 tablet by mouth 2 (two) times a day as needed for muscle spasmsActive nabumetone (Relafen) 500 MG tablet Take 1,000 mg by mouth in the morning and 1,000 mg before bedtime.12/05/2023 Active hydroxychloroquine (Plaquenil) 200 MG tablet Take 1 tablet by mouth in the morning and 1 tablet before bedtime.04/10/2024 Active tadalafil (Cialis) 10 MG tablet Take 10 mg by mouth Daily as needed for erectile pocmatuflei64/02/2024ctive Testosterone 1.62 % gel apply 2 (TWO) pumps topically EVERY KUYCKQX1805/27/2024ctive albuterol HFA 90 mcg/act inhaler Indications:Mild persistent asthma with exacerbation (HCC)Inhale 2 puffs every 6 (six) hours if needed for wheezing or shortness of breath 18 g 11/05/2024Active tadalafil (Cialis) 5 MG tablet Take 5 mg by mouth Daily5Active albuterol (2.5 MG/3ML) 0.083% nebulizer solution Indications:COPD mixed type (HCC)Take 3 mL (2.5 mg) by nebulization every 6 (six) hours if needed for wheezing for up to 15 days 180 mL 5Active montelukast (Singulair) 10 MG tablet Indications:Mild intermittent asthma with (acute) exacerbation (HCC)Take 1 tablet (10 mg) by mouth at bedtime 90 tablet 5Active fluticasone (Flonase) 50 MCG/ACT nasal spray Indications:Non-seasonal allergic rhinitis, unspecified triggerAdminister 2 sprays into each nostril Daily 16 g 505Active lisinopril-hydroCHLOROthiazide 10-12.5 MG tablet Indications:Essential (primary) hypertensionTake 1 tablet by mouth Daily 90 tablet 5Active busPIRone (Buspar) 10 MG tablet Indications:SCOT (generalized anxiety disorder)Take 1 tablet (10 mg) by mouth in the morning and 1 tablet (10 mg) before bedtime. 180 tablet 5Active amitriptyline (Elavil) 50 MG tablet Indications:Lumbosacral spondylosis without myelopathyTake 1 tablet (50 mg) by mouth at bedtime 90 tablet 5Active Active Problems ProblemNoted DateDiagnosed DateFormer yyqjls2303/19/20259658PVTVO67/04/2025 Assessment & Plan (09/25/2024 4:47 PM EST): Sxs have resolved No acute dyspnea, fatigue, or wheeze or cough No fever COPD mixed type09/13/2024 Assessment & Plan (09/25/2024 4:46 PM EST): Current meds; albuterol, breztri, singulair Pt has stopped breztri, did not feel he needed it. We did speak for approx 5-7 minutes about his COPD dx. He is able to ride stationary bike for 30 minutes with no acute dyspnea, normally does not have an acute cough, wheeze or dyspnea COPD with znbtmjdemzmb81/23/2025 Assessment & Plan (09/25/2024 4:47 PM EST): Last visit was ordered cxr, nova meraz Ultimately did test +covid Here today: Doing well, finished atb, no longer using breztri RTW no restrictions on 09/26/24 Assessment & Plan (09/13/2024 10:38 AM EST): Was getting better, then worse over weekend, fever too Will order new atb, nebs, and chest xray Fluids, rest, off work til 09/25/24 Go to ER if worsening sxs Outside of window to test flu/covid/RSV as it will not change treatment plan Gimmwiyq26/23/2025ody mass index (BMI) 40.0-44.9, adult09/05/2024Mixed cjhczhmdvryipc36/05/2024 Assessment & Plan (03/19/2025 6:45 AM EDT): Check labs yearly Needs flu shot06/26/2024ilateral hand pain02/21/2024 Assessment & Plan (02/21/2024 2:06 PM EDT): Has medrol dose pack at home, recommend that he trial this (hold NSAID while taking steroids) Fu if not better Ltfaphvc02/08/2024Erectile dysfunction of organic dfhipx3409/29/2023iverticulitis 09/29/2023Screening for prostate vsipbh6309/29/2023re-brhqhoso28/08/2024 Assessment & Plan (03/19/2025 6:44 AM EDT): No current meds for DM Does take tess/hydrochlorothiazide A1c: Assessment & Plan (09/29/2023 1:31 PM EST): Check labs Lung prevyj5709/29/2023 Overview (09/29/2023): Lung nodule on CT chest from [facility] Assessment & Plan (09/29/2023 1:36 PM EST): Being referred to pulmonogist Full thickness rotator cuff tear09/28/2023rimary osteoarthritis, right shoulder 09/28/2023OSA on CPAP09/28/2023 Assessment & Plan (03/19/2025 6:41 AM EDT): You have a diagnosis of obstructive sleep [...] etc:[facility] Doctor that manages your [facility]: PCP Assessment & Plan (11/15/2024 1:23 PM EDT): You have a diagnosis of obstructive sleep [...] etc:[facility] Doctor that manages your [facility]: PCP Assessment & Plan (06/26/2024 6:19 AM EST): Compliant with PAP Approx hours of use daily: Assessment & Plan (02/21/2024 2:03 PM EDT): Wears PAP at least 8 hours daily Assessment & Plan (09/29/2023 1:30 PM EST): Wears PAP at least 8 hours daily Tortuous aorta09/28/2023enign ipezjpfkcoaw16/07/2024 Assessment & Plan (03/19/2025 6:43 AM EDT): Please check blood pressure daily and record DASH diet Limit caffeine Take medication as directed Contact office if chest pain, pressure, dizziness, shortness of breath, swelling legs Recommend slow position changes Current meds: lisinopril/HCTZ Assessment & Plan (11/15/2024 6:40 AM EDT): Please check blood pressure daily and record DASH diet Limit caffeine Take medication as directed Contact office if chest pain, pressure, dizziness, shortness of breath, swelling legs Recommend slow position changes Current meds: lisinopril/HCTZ Assessment & Plan (10/29/2024 6:47 AM EDT): Please check blood pressure daily and record DASH diet Limit caffeine Take medication as directed Contact office if chest pain, pressure, dizziness, shortness of breath, swelling legs Recommend slow position changes Current meds: lisinopril/HCTZ Assessment & Plan (09/05/2024 6:45 AM EST): Please check blood pressure daily and record DASH diet Limit caffeine Take medication as directed Contact office if chest pain, pressure, dizziness, shortness of breath, swelling legs Recommend slow position changes Current meds: lisinopril/HCTZ Assessment & Plan (06/26/2024 6:20 AM EST): Please check blood pressure daily and record DASH diet Limit caffeine Take medication as directed Contact office if chest pain, pressure, dizziness, shortness of breath, swelling legs Recommend slow position changes Assessment & Plan (02/21/2024 2:02 PM EDT): No changes in med doses Assessment & Plan (09/29/2023 1:22 PM EST): No changes in dose of meds at this time Aortic aneurysm without rupture, unspecified portion of aorta09/28/2023 Assessment & Plan (03/19/2025 6:44 AM EDT): Saw vascular people will continue to have this monitored Assessment & Plan (09/29/2023 1:22 PM EST): Saw vascular people will continue to have this monitored Ventral xirsxo8609/28/2023 Overview (09/28/2023): 3.9) ; Has had herniasX2 for a while. Slightly tender with lifting, but not too bthersome. Reducible, no nausea. Assessment & Plan (06/26/2024 9:59 AM EST): Advised of red flags to go to ER for No symptoms at this time Assessment & Plan (02/21/2024 2:05 PM EDT): Reducible, no action at this time Renal cyst, left09/28/20235392Ohwgqzbvprobgr71/07/2024Morbid (severe) obesity due to excess /07/2024 Assessment & Plan (03/19/2025 6:45 AM EDT): Discussed with patient their BMI (actual, verses recommended). We have also discussed lifestyle modifications: attempts to perform physical activity as chronic conditions allow, also to monitor dietary intake: increasing protein/fruits/veggies and lowering carb intake (unless contraindicated). Limit sodas, juices, and sugary drinks. Assessment & Plan (11/15/2024 1:14 PM EDT): Discussed with patient their BMI (actual, verses recommended). We have also discussed lifestyle modifications: attempts to perform physical activity as chronic conditions allow, also to monitor dietary intake: increasing protein/fruits/veggies and lowering carb intake (unless contraindicated). Limit sodas, juices, and sugary drinks. 20 pounds lost in last few months , keep up the good work Assessment & Plan (10/29/2024 6:48 AM EDT): Discussed with patient their BMI (actual, verses recommended). We have also discussed lifestyle modifications: attempts to perform physical activity as chronic conditions allow, also to monitor dietary intake: increasing protein/fruits/veggies and lowering carb intake (unless contraindicated). Limit sodas, juices, and sugary drinks. Assessment & Plan (10/01/2024 4:01 PM EST): Discussed with patient their BMI (actual, verses recommended). We have also discussed lifestyle modifications: attempts to perform physical activity as chronic conditions allow, also to monitor dietary intake: increasing protein/fruits/veggies and lowering carb intake (unless contraindicated). Limit sodas, juices, and sugary drinks. Assessment & Plan (09/25/2024 7:26 AM EST): Discussed with patient their BMI (actual, verses recommended). We have also discussed lifestyle modifications: attempts to perform physical activity as chronic conditions allow, also to monitor dietary intake: increasing protein/fruits/veggies and lowering carb intake (unless contraindicated). Limit sodas, juices, and sugary drinks. Assessment & Plan (09/13/2024 6:13 AM EST): Discussed with patient their BMI (actual, verses recommended). We have also discussed lifestyle modifications: attempts to perform physical activity as chronic conditions allow, also to monitor dietary intake: increasing protein/fruits/veggies and lowering carb intake (unless contraindicated). Limit sodas, juices, and sugary drinks. Assessment & Plan (06/26/2024 6:20 AM EST): Discussed with patient their BMI (actual, verses recommended). We have also discussed lifestyle modifications: attempts to perform physical activity as chronic conditions allow, also to monitor dietary intake: increasing protein/fruits/veggies and lowering carb intake (unless contraindicated). Limit sodas, juices, and sugary drinks. Assessment & Plan (02/21/2024 2:03 PM EDT): Keep up with weight loss, has lost 20 pounds in the last 6 months or so BPH associated with ekwxnhcp93/07/2024Non-seasonal allergic /07/2024 SCOT (generalized anxiety disorder)08/18/2023 Assessment & Plan (11/15/2024 1:27 PM EDT): Continues with taking buspar BID, helps with symptoms No adjustments needed at this time No SI/HI/Hallucinations SCOT 7 =3 Assessment & Plan (06/26/2024 9:52 AM EST): Continues with taking buspar BID, helps with symptoms No adjustments needed at this time No SI/HI/Hallucinations Lumbosacral spondylosis without thjktbrqri05/10/2018 Overview (09/28/2023): Added automatically from request for surgery [id number] Assessment & Plan (11/15/2024 1:28 PM EDT): Was last seen for this condition by me approx 1 month ago He is also under the care of [facility] pain mgmt Had RFA procedure 10/19/24 Pain levels 3-4/10 Will RTW no restrictions as of 11/19/24 Assessment & Plan (10/29/2024 2:16 PM EDT): Was last seen for this condition by me approx 1 month ago He is also under the care of [facility] mg[facility] Had RFA procedure 10/19/24 He is improving, but not enough to RTW no restrictions, we will extend off work note until and including 11/18/24, with an estimated RTW date 11/19/24 I will see him either 11/14 or 11/15/24 for final decision Assessment & Plan (10/01/2024 4:08 PM EST): Acute exacerbation of chronic lumbar back pain Pain mgmt tomorrow Off work note given: is requesting 1 month off, so he can see pain mgmt, likely will need injections, which he said will take time, also they do not do off work notes Requests steroids: 5 day Ice to affected area Assessment & Plan (09/13/2024 10:41 AM EST): At last office visit, he was treated for URI, severe cough, that caused an increase in his lumbar back pain, was taken off work for 2 weeks d/t this... that is getting back to baseline Assessment & Plan (09/05/2024 3:02 PM EST): Off work for 2 weeks, and wants refill of elavil Steroids should help Assessment & Plan (12/21/2023 10:56 AM EDT): Chronic Low Back Pain due to multilevel degenerative changes of spine and disc herniation but acutely worsened since Tuesday after he accidentally hit the side of his back when he closed door of his vehicle. Numbness noted on right side radiating all the down to his feet. This is not new but worsened from his baseline. Patient is using Nabumetone and lyrica for pain. He also has Flexeril as needed for back spasm Pain is poorly controlled on this regimen. He is unable to use higher dose of Lyrica due to side effects. He has a steroid dose pack prescribed to him by rheumatology and he will start using that. 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 Will take patient off of work from Tuesday until Tuesday. He can return to work on Tuesday as long ashis pain is manageable and controlled. However, if it worsened from its baseline, he will need moretime off and further work up. I will order an XR of lumbar spine and refer to Pain Clinic. Spinal stenosis, ptdhax6606/12/2014 Assessment & Plan (02/21/2024 2:06 PM EDT): Does feel overall that his symptoms are slowly worsening, when it gets to the point he cannot standit any longer, he will call pain mgmt [facility] paper work is not completed correctly, he will bring me updated [facility] paperwork to complete Resolved Problems ProblemNoted DateDiagnosed DateResolved DateURI (upper respiratory infection) 503/ Assessment & Plan (09/05/2024 3:01 PM EST): Fluids, rest, atb, steroids, and tessalon pearles Mild persistent asthma with puvprcknyvzj13/07/422875/ Overview (09/28/2023): Controlled with singulair. Does not need rescue inhaler Assessment & Plan (09/29/2023 1:30 PM EST): Does not use rescue inhaler, sxs are controlled with singulair High slyuojtnddi22 Immunizations ImmunizationAdministration DatesNext DueInfluenza, Seasonal, Quadrivalent, Shdprfpstb04/11/2020Influenza, injectable, MDCK, preservative free, quadrivalent 06/26/2024 Family History Medical HistoryRelationNameCommentsHeart diseaseFatherHypertensionFatherColon cancerPaternal GrandfatherDiabetesPaternal GrandmotherRelationNameStatusComments FatherAliveMotherAlivePaternal GrandfatherDeceased (Age 48)Paternal Grandmother Social History Tobacco UseTypesPacks/DayYears UsedDateSmoking Tobacco: FormerCigarettesPassive Smoke Exposure: Past Tobacco Cessation:Counseling Given: Not Answered Alcohol UseStandard Drinks/WeekCommentsYes0 (1 standard drink = 0.6 oz pure alcohol)monthly or less, caffeine more than 4 cups per dayHumiliation, Afraid, Rape, and Kick questionnaireAnswerDate RecordedWithin the last year, have you been afraid of your partner or ex-partner?No09/29/2023Within the last year, have you been humiliated or emotionally abused in other ways by your partner or ex-partner?No09/29/2023Within the last year, have you been kicked, hit, slapped, or otherwise physically hurt by your partner or ex-partner?No09/29/2023Within the last year, have you been raped or forced to have any kind of sexual activity by your partner or ex-partner?No09/29/2023Social Connection and Isolation Panel AnswerDate RecordedIn a typical week, how many times do you talk on the phone with family, friends, or neighbors?Twice a week09/29/2023How often do you get together with friends or relatives?Once a week09/29/2023How often do you attend mormonism or latter day services?Never09/29/2023o you belong to any clubs or organizations such as mormonism groups, unions, fraternal or athletic groups, or school groups?Yes09/29/2023How often do you attend meetings of the clubs or organizations you belong to?1 to 4 times per year09/29/2023re you , , , , never , or living with a partner? 09/29/2023UDIT-CAnswerDate RecordedQ1: How often do you have a drink containing alcohol?Never09/29/2023Q2: How many drinks containing alcohol do you have on a typical day when you are drinking?Patient does not drink09/29/2023Q3: How often do you have six or more drinks on one occasion?Never09/29/2023Overall Financial Resource Strain (CARDIA)AnswerDate RecordedHow hard is it for you to pay for the very basics like food, housing, medical care, and heating?Not hard at all 09/29/2023HQ-2AnswerDate RecordedPatient Health Questionnaire-2 Score0 09/29/2023[facility] [place] [facility] - Occupational Stress QuestionnaireAnswerDate RecordedDo you feel stress - tense, restless, nervous, or anxious, or unable to sleep at night because yourmind is troubled all the time - these days?To some tdwixh8309/29/2023Exercise Vital SignAnswerDate Recorded On average, how many days per week do you engage in moderate to strenuous exercise (like a brisk walk)?0 days09/29/2023On average, how many minutes do you engage in exercise at this level?0 min09/29/2023Hunger Vital SignAnswerDate RecordedWithin the past 12 months, you worried that your food would run out before you got the money to buymore.Never true09/29/2023Within the past 12 months, the food you bought just didn't last and you didn't have money to get more.Never true09/29/2023RAPARE - TransportationAnswerDate RecordedIn the past 12 months, has lack of transportation kept you from medical appointments or from getting medications?No09/29/2023In the past 12 months, has lack of transportation kept you from meetings, work, or from getting things needed for daily living?No09/29/2023Housing Stability Vital SignAnswerDate RecordedIn the last 12 months, was there a time when you were not able to pay the mortgage or rent on time?No09/29/2023In the last 12 months, how many places have you lived?1 09/29/2023In the last 12 months, was there a time when you did not have a steady place to sleep or slept in ashelter (including now)?No09/29/2023Sex and Gender InformationValueDate RecordedSex Assigned at UalprHfpx59/07/2024 6:46 AM EDT Legal XuwAmqp0511/03/2022 6:42 PM EDTGender ArszkbykHrez43/07/2024 6:46 AM EDT Sexual TklhbwdgyrpAekmwgcx75/07/2024 6:46 AM EDT Last Filed Vital Signs Vital SignReadingTime TakenCommentsBlood Zsmfntot384/7807 11:31 AM EDT Xmjcc4489 11:31 AM IQZXqbwadabiyq23.9 ??C (98.5 ??F)03/19/2025 11:31 AM EDTRespiratory Iazd831103/19/2025 11:31 AM EDTOxygen Ffarmsymzc78%03/19/2025 11:31 AM EDTInhaled Oxygen Concentration--Bqgtcd541 kg (286 lb 12.8 oz)03/19/2025 11:31 AM FIHItbkyp702.8 cm (5' 10 )09/05/2024 2:28 PM ESTBody Mass Index41.15 09/05/2024 2:28 PM EST Plan of Treatment Health MaintenanceDue DateLast DoneCommentsPneumococcal Vaccine: Pediatrics (0 to 5 Years) and At-Risk Patients (6 to 64 Years) (1 of 2 - PCV)1985COVID- 19 Vaccine ( - 2024- season)2025Influenza VaccineDiscontinued 06/26/2024, 07/02/2020 Insurance Care Teams Team MemberRelationshipSpecialtyStart DateEnd Date Parth Hdz MD PCP - GeneralFamily Medicine02/17/23 Shavonne Chowdary NP [address] [facility] [place] [id number] PCP - Mariajose Burns08/22/24
--- OUTSIDE RECORDS SUMMARY | 2025-07-15 15:45 | XMS_ITS | Clinical Summary ---
Author Organization [facility] Address [address] [place] [address], [address] [place] [address] Care Team Providers Care Audiology Director Name Role Phone Es Love JOCKEY'S AGENT - MANAGING EDITOR Primary Care Provider [phone] Allergies Active AllergyReactionsCriticalityNoted YtfoQjguxzpnHtmgyqmhvk18/25/2020Morphine 02/14/20206954Mvzabwombzq32/25/2020 Medications MedicationSigDispense QuantityRefillsLast FilledStart DateEnd DateStatus hydroCHLOROthiazide (HYDRODIURIL) 25 MG tablet Take 25 mg by mouth dailyActive montelukast (SINGULAIR) 10 MG tablet Take 10 mg by mouth nightlyActive cyclobenzaprine (FLEXERIL) 10 MG tablet Take 10 mg by mouth 2 times daily as needed for Muscle spasmsActive amitriptyline (ELAVIL) 25 MG tablet Take 25 mg by mouth nightlyActive ibuprofen (ADVIL;MOTRIN) 800 MG tablet Take 800 mg by mouth 2 times dailyActive Social History Tobacco UseTypesPacks/DayYears UsedDateSmoking Tobacco: FormerCigarettes Smokeless Tobacco: NeverSex and Gender InformationValueDate RecordedSex Assigned at BirthNot on fileLegal XeaPsow8402/14/2020 1:13 PM EDTGender IdentityNot on file Sexual OrientationNot on file Last Filed Vital Signs Vital SignReadingTime TakenCommentsBlood Uooqvgbm707/7902/14/2020 2:16 PM EDT Odmer792802/14/2020 2:16 PM EOOCkschvaqfui92.3 ??C (97.4 ??F)02/14/2020 1:29 PM EDTRespiratory Uaqx314002/14/2020 1:29 PM EDTOxygen Woowcrtcfr82%02/14/2020 2:16 PM EDTInhaled Oxygen Concentration--Weight--Height--Body Mass Index-- Plan of Treatment Not on file Insurance * Guarantor: Marcel Wahl TypeRelation to PatientDate of BirthPhone Billing AddressPersonal/UhfdauPovp1965 [address] [address] Care Teams Team MemberRelationshipSpecialtyStart DateEnd Date Es Love, JOCKEY'S AGENT - MANAGING EDITOR [address] [place] [id number] PCP - GeneralSpecialist02/14/20
--- OUTSIDE RECORDS SUMMARY | 2025-07-15 15:49 | XMS_ITS | CCD ---
Author Organization [facility] Informat ion [facility] Care Team Providers Care Cherry Picker Operator Name Role Phone Es Bartholomew Primary Care Provider [phone] JOSHUA PEREZ Attending Unavailable ES BARTHOLOMEW Primary Care Unavailable Rom Faye Jr. Primary Care Provider Unava Carrie Araujo Unavailable AICHHOLZ, REGIONAL AIRLINE PILOT SHAVONNE Consulting Unavailable AICHHOLZ, REGIONAL AIRLINE PILOT SHAVONNE Primary Care Unavailable AICHHOLZ, REGIONAL AIRLINE PILOT SHAVONNE Admitting Unavailable AICHHOLZ, REGIONAL AIRLINE PILOT SHAVONNE Attending Unavailable AICHHOLZ, REGIONAL AIRLINE PILOT SHAVONNE Primary Care Unavailable MISC, DR MARIE Consulting Unavailable MISC, DR MARIE Admitting Unavailable MISC, DR MARIE Attending Unavailable AICHHOLZ, REGIONAL AIRLINE PILOT SHAVONNE Referring Unavailable AICHHOLZ, REGIONAL AIRLINE PILOT SHAVONNE Primary Care Unavailable MISC, DR MARIE Consulting Unavailable MISC, DR MARIE Admitting Unavailable MISC, DR MARIE Attending Unavailable AICHHOLZ, REGIONAL AIRLINE PILOT SHAVONNE Attending Unavailable AICHHOLZ, REGIONAL AIRLINE PILOT SHAVONNE Consulting Unavailable AICHHOLZ, REGIONAL AIRLINE PILOT SHAVONNE Primary Care Unavailable AICHHOLZ, REGIONAL AIRLINE PILOT SHAVONNE Admitting Unavailable DR LISSETTE MCCAIN Consulting Unavailable MISC, DR MARIE Attending Unavailable MISC, DR MARIE Consulting Unavailable MISC, DR MARIE Admitting Unavailable AICHHOLZ, REGIONAL AIRLINE PILOT SHAVONNE Primary Care Unavailable DANIELE MOLINA Consulting UnavailROMA Modi Admitting Unavailable ROMA CHAHAL Attending Unavailable AICHHOLZ, REGIONAL AIRLINE PILOT SHAVONNE Primary Care Unavailable AICHHOLZ, REGIONAL AIRLINE PILOT SHAVONNE Primary Care Unavailable DR LISSETTE MCCAIN Consulting Unavailable FAWENRIQUE, FLORES H Admitting Unavailable NATHALY, FLORES H Attending Unavailable NATHALY, FLORES H Consulting Unavailable DR DARIN CHAPA V Consulting Unavailable AICHHOLZ, REGIONAL AIRLINE PILOT SHAVONNE Primary Care Unavailable AICHHOLZ, REGIONAL AIRLINE PILOT SHAVONNE Admitting Unavailable AICHHOLZ, REGIONAL AIRLINE PILOT SHAVONNE Attending Unavailable AICHHOLZ, REGIONAL AIRLINE PILOT SHAVONNE Consulting Unavailable AICHHOLZ, SHAVONNE J Primary Care Physician Rom Faye Jr. Primary Care Provider Unava ilable Kevin HARKINS, Rafael Unavailable Wilder HARKINS, Parth Primary Care Provider Wilder HARKINS, Parth Primary Care Provider Aichholz FOURTH GRADE TEACHER-REGIONAL AIRLINE PILOT, Shavonne Sangita Primary Care Unava ilable Claritza FOURTH GRADE TEACHER-REGIONAL AIRLINE PILOT, Manuel Mcintosh Attending Unav ailable Aichholz FOURTH GRADE TEACHER-REGIONAL AIRLINE PILOT, Shavonne Jo Primary Care Unava ilable Claritza FOURTH GRADE TEACHER-REGIONAL AIRLINE PILOT, Manuel Mcintosh Attending Unav ailable Aichholz SOLUTIONS EXECUTIVE SECURITY, Shavonne Unavailable Unavailable Primary Care Provider Unavailabl e Aichholz FOURTH GRADE TEACHER-REGIONAL AIRLINE PILOT, Shavonne Ryan Primary Care Provider AICHHOLZ, SHAVONNE Attending Unavailable AICHHOLZ, SHAVONNE Attending Unavailable AICHHOLZ, SHAVONNE Attending Unavailable AICHHOLZ, SHAVONNE Attending Unavailable AICHHOLZ, SHAVONNE Attending Unavailable AICHHOLZ, SHAVONNE Attending Unavailable AICHHOLZ, SHAVONNE Attending Unavailable AICHHOLZ, SHAVONNE Attending Unavailable Orzech, Wendi X Attending Unavailable Orzech, Wendi X Admitting Unavailable Orzech, Wendi X Attending Unavailable Orzech, Wendi X Attending Unavailable Orzech, Wendi X Attending Unavailable Orzech, Wendi X Attending Unavailable Orzech, Wendi X Attending Unavailable SATYA IQBAL Attending Unavailable SHAVONNE CHOWDARY J Referring Unavailable NATHANAEL PARISH E Admitting Unavailable PARISH WREN Attending Unavailable AICHHOLMaame, SHAVONNE J Referring Unavailable AICHHOLZ, SHAVONNE J Primary Care Unavailable NATHANAEL, PARISH E Attending Unavailable NATHANAEL PARISH E Referring Unavailable AICHHOLMaame, SHAVONNE J Primary Care Unavailable SATYA IQBAL Attending Unavailable PARISH WREN Referring Unavailable AICHHOLMaame, SHAVONNE J Primary Care Unavailable AICHHOLMaame, SHAVONNE J Primary Care Unavailable BREWIS, RUTH P Attending Unavailable Aichholz SOLUTIONS EXECUTIVE SECURITY-C, Shavonne J Primary Care Provider [phone] Shavonne Kelly Attending Provider Parth Hdz MD Primary Care Provider [phone] Shavonne Chowdary NP Unavailable Allergies Allergy ClassificationReported Allergen(s)Allergy TypeDate of OnsetReaction(s) FacilityOpioid Agonists (2 sources)MeperidineDrug Jlvixwf39-10-9972Vjiqaz Status ChangeC[facility]innati [facility] Penicillins (antibiotic) (1 source)PenicillinsDrug Wrzsypj22-93-5410Ndkiupcfz Clinic Work Phone: (20 sources)Meperidine; Translations: [meperidine]Drug Qrqrqic84-15-5523 Hallucinations (finding), [facility]inationsMer[facility]- [place], [place] (20 sources)Morphine; Translations: [morphine]Drug Mpwmzry71-29-7735 Hallucinations (finding), Mental Status ChangeMercy Health- [place], [place] (5 sources)Penicillins; Translations: [penicillins]Propensity to adverse reactions to ylhi47-87-0040Pxizlyddy Of BreathMercy Health- [place], [place] (10 sources)Penicillin; Translations: [penicillin]Drug AllergyNausea and vomiting (disorder)[facility] (20 sources)Penicillin GDrug Lcfbizj31-99-6031[facility] fl3ur Other (3 sources)Meperidine; Translations: [Demerol]Drug Hcqjngt69-40-7124Uyq [facility] (1 source)MorphineDrug Vpburmh98-54-1166Yon [facility] (1 source)PenicillinsDrug allergy (disorder)01-47-4672Vgn [facility] (1 source)MeperidineDrug Okpdquc42-08-9167Twanyv Status ChangeCincinnati [facility] Medical Center (2 sources)PenicillinsPropensity to adverse ndrvxgfyz55-35-3736Acnvtofik Of BreathCincinnati [facility] Center Work Phone: (20 sources)MeperidineDrug Nxpmrch90-31-7091[facility] (1 source)Morphine; Translations: [Morphine Sulfate]Drug AllergyOhio[facility] (3 sources)Morphine; Translations: [MORPHINE (PF)]Drug Ebbdhvj34-22-5763 [facility] Medications Current Medications MedicationDrug Class(es)DatesSig (Normalized)Sig (Original)acetaminophen 325 mg / HYDROcodone bitartrate 5 mg oral tablet (5 sources)Opioid AgonistStart: 01-24-2023 End: 37-63-6133nnen 1 tablet by mouth onceHYDROcodone-acetaminophen ([place]) 5- 325 MG tablet Take 1 tablet by mouth every 12 (twelve) hours ifneeded for moderate pain 0 01/24/2023 09/29/2023 Discontinued (Therapy completed)take 1 tablet by mouth every six hours as neededHYDROcodone-Acetaminophen (NORCO) 10- 325 mg per tablet Take 1 tablet by mouth every 6 hours as needed. 0 Active Comment on above:Take 1 tablet by mouth every 6 hours as needed.albuterol 0.83 mg/ml inhalation solution (20 sources)beta2-Adrenergic AgonistStart: 02-53-7610atdx 2.5 mg by inhalation every four hours as neededAlbuterol Sulfate 2.5 mg /3 mL (0.083 %) solution for nebulization Active 2.5 MG INHALATION Every 4hours as needed June 06, 2025 12:00am Complies with drug therapyStart: 65-49-6362uuga 1 puff(s) by inhalation every four to six hours as neededAlbuterol Sulfate 90 mcg/actuation HFA aerosol inhaler Active 2 PUFF INHALATION EVERY 4-6 HOURS as needed June 06, 2025 12:00am Complies with drug therapyStart: 09-13-2024 End: 71-67-2214unmjlzdjj (2.5 MG/3ML) 0.083% nebulizer solution Indications: COPD mixed type (HCC) Take 3 mL (2.5 mg) by nebulization every 6 (six) hours if needed for wheezing for up to 15 days 180 mL 1 5ActiveStart: 06-26-2024 End: 75-37-5172oova 2 puff(s) by inhalation every six hours for wheezing albuterol HFA 90 mcg/act inhaler Indications: Mild persistent asthma with exacerbation (HCC) Inhale2 puffs every 6 (six) hours if needed for wheezing or shortness of breath 18 g 06/26/2024 ActiveProAir HFA Not-Takingamitriptyline hydrochloride 50 mg oral tablet (20 sources)Tricyclic AntidepressantStart: 04-30-2018 End: 94-65-0149lbqq 1 tablet by mouth once daily at bedtimeAmitriptyline 50 mg tablet Active 50 MG PO Daily at bedtime June 06, 2025 12:00am Complies with drug therapyAmitriptyline HCl Activetake 1 tablet by mouth once daily amitriptyline (ELAVIL) 25 MG tablet Take 25 mg by mouth nightly 0 Active benzonatate 200 mg oral capsule (2 sources)Non-narcotic AntitussiveStart: 09-05-2024 End: 79-23-3904yyxd 1 capsule by mouth three times daily as needed for cough benzonatate (Tessalon) 200 MG capsule Indications: Upper respiratory tract infection, unspecified type Take 1 capsule (200 mg) by mouth 3 (three) times a day as needed for cough for up to 7 days Do not crush or chew. 21 capsule 09/05/2024 09/12/2024 ActivebusPIRone hydrochloride 10 mg oral tablet (20 sources)Start: 11-29-2023 End: 10-08-0906ypml 1 tablet by mouth twice daily as neededBuspirone 10 mg tablet Active 10 MG PO Twice daily as needed June 06, 2025 12:00am Complies with drug therapyStart: 04-25-0874cubt 1 tablet by mouth in the morningbusPIRone (Buspar) 10 MG tablet Indications: SCOT (generalized anxiety disorder) (CMS/HCC) Take 1 tablet (10 mg) by mouth in the morning and 1 tablet (10 mg) before bedtime. 60 tablet 2 08/18/2023 Activecetirizine hydrochloride 10 mg oral tablet (2 sources)Histamine-1 Receptor Antagonisttake 1 tablet by mouth in the morning cetirizine (ZyrTEC) 10 mg tablet Take 1 tablet (10 mg total) by mouth in the morning. Activecyclobenzaprine hydrochloride 10 mg oral tablet (20 sources)Muscle RelaxantStart: 10-75-5903xdeo 1 tablet by mouth every twelve hours as neededCyclobenzaprine 10 mg tablet Active 10 MG PO Every 12 hours as needed June 06, 2025 12:00am Complies with drug therapyStart: 03-07-2023 take 1 tablet by mouth three times daily as needed for muscle spasms cyclobenzaprine 10 mg Tab 10 mg = 1 tab(s), Oral, TID, PRN for spasm, # 30 tab(s), Refills(s) 0 Start Date: 03/07/23 Status: Ordered Quantity: 30.0 Unit: tab(s) Repeat number: 1Start: 13-95-3972fopu 1 tablet by mouth twice daily as neededcyclobenzaprine (FLEXERIL) 10 mg tablet Take 1 tablet (10 mg total) by mouth 2 (two) times a day asneeded. 5 03/28/2018 ActiveCyclobenzaprine HCl at bedtime Activedoxycycline hyclate 100 mg oral tablet (5 sources)Tetracycline-class DrugStart: 09-05-2024 End: 00-66-2608lrkuzkegpvg (Vibra-Tabs) 100 MG tablet Indications: Upper respiratory tract infection, unspecified type Take 1 tablet (100 mg) by mouth in the morning and 1 tablet (100 mg) before bedtime. Do all this for 10 days. Take with a full glass of water and do not lie down for at least 30 minutes after.. 20 tablet 09/05/2024 09/15/2024 Activefluticasone propionate 0.05 mg/actuat metered dose nasal spray (20 sources)CorticosteroidStart: 89-38-9598Wldrmlitwbf Propionate 50 mcg/actuation spray,suspension Active 2 SPRAY INTRANASAL daily June 06, 2025 12:00am Complies with drug therapyStart: 03-18-2025 End: 33-99-7634iotl 2 spray(s) nasal route once dailyfluticasone (Flonase) 50 MCG/ACT nasal spray Indications: Non-seasonal allergic rhinitis, unspecified trigger Administer 2 sprays into each nostril Daily 16 g 5 03/18/2025 04/17/2025 ActiveStart: 09-11-2024 End: 61-28-7880fwvh 2 spray(s) nasal route once dailyfluticasone (Flonase) 50 MCG/ACT nasal spray Indications: Non-seasonal allergic rhinitis, unspecified trigger Administer 2 sprays into each nostril Daily 16 g 5 09/11/2024 Active Start: 03-28-2024 End: 73-71-8598oeug 2 spray(s) nasal route once dailyfluticasone (Flonase) 50 MCG/ACT nasal spray Indications: Non-seasonal allergic rhinitis, unspecified trigger Administer 2 sprays into each nostril Daily 16 g 5 03/28/2024 Active Start: 09-28-2023 End: 19-38-2355yxlb 2 spray(s) nasal route in the morningfluticasone (Flonase) 50 MCG/ACT nasal spray Indications: Non-seasonal allergic rhinitis, unspecified trigger Administer 2 sprays into each nostril in the morning. 16 g 5 09/28/2023 10/28/2023 ActiveStart: 60-94-4693fhekusxfkhh Nasal 0.05 mg/inh Pisinemo Refill(s) 0 Start Date: 03/07/23 Status: Ordered Repeat number: 1Start: 32-35-2088vpig 2 spray(s) nasal route in the morningfluticasone (FLONASE) 50 mcg/actuation nasal spray Administer 2 sprays into each nostril in the morning. 5 04/27/2018 Active Fluticasone Propionate 50 MCG/ACT Nasal for 30 Days ActivehydroCHLOROthiazide (2 sources)Thiazide DiuretichydroCHLOROthiazide Activetake 1 tablet by mouth once dailyhydroCHLOROthiazide (HYDRODIURIL) 25 MG tablet Take 25 mg by mouth daily 0 ActivehydroCHLOROthiazide 12.5 mg / lisinopril 10 mg oral tablet (20 sources)Thiazide Diuretic, Angiotensin Converting Enzyme InhibitorStart: 10-31-2023 End: 50-53-5074lhcl 1 tablet by mouth once dailyLisinopril-Hydrochlorothiazide 10-12.5 mg tablet Active 1 TAB PO Daily June 06, 2025 12:00am Complies with drug therapyStart: 18-87-7413wkkxyiqghqssuvlodqd-lisinopril 12.5 mg-10 mg Tab Refill(s) 0 Start Date: 03/07/23 Status: Ordered Repeat number: 1Start: 45-33-4452tcpn 10-12.5 mg by mouth once in the morninglisinopril- hydroCHLOROthiazide (PRINZIDE,ZESTORETIC) 10-12.5 mg per tablet Take 1 tablet by mouth in the morning. 1 03/10/2018 Activehydroxychloroquine sulfate 200 mg oral tablet (20 sources)Antimalarial, Antirheumatic AgentStart: 81-07-1398Kmkltsjspjlyxcmpxs 200 mg tablet Active MG PO June 06, 2025 12:00am Complies with drug therapy lisinopril 10 mg oral tablet (1 source)Angiotensin Converting Enzyme Inhibitortake 1 tablet by mouth every twenty-four hoursLisinopril 10 MG 1 tablet Orally Once a day Acvlis09 hr mirabegron 50 mg extended release oral tablet (12 sources)beta3-Adrenergic AgonistStart: 12-05-2023 End: 84-94-4023udxc 1 tablet by mouth once dailyMyrbetriq 50 mg oral tablet, extended release 50 mg = 1 tab(s), Oral, Daily, # 30 tab(s), Refills(s) 11, Pharmacy: [id number], 178, cm, 12/05/23 13:51:00 EDT, Height/Length Dosing, 143, kg, 12/05/23 13:51:00 EDT, Weight Dosing Start Date: 12/05/23 Status: Orderedmontelukast 10 mg oral tablet (20 sources)Leukotriene Receptor AntagonistStart: 35-84-2671yptc 1 tablet by mouth once daily at bedtimeMontelukast 10 mg tablet Active 10 MG PO Daily at bedtime June 06, 2025 12:00am Complies with drug therapyStart: 04-30-2018 End: 52-49-0293roiafijbrjv 10 mg Tab Refills(s) 0 Start Date: 03/07/23 Status: Ordered Repeat number: 1Montelukast Sodium Activenabumetone 500 mg oral tablet (20 sources)Nonsteroidal Anti-inflammatory DrugStart: 64-84-3392evlg 1 tablet by mouth twice daily as neededNabumetone 500 mg tablet Active 500 MG PO Twice daily as needed June 06, 2025 12:00am Complieswith drug therapyStart: 12-05-2023 take 2 tablets by mouth in the morningnabumetone (Relafen) 500 MG tablet Take 1,000 mg by mouth in the morning and 1,000 mg before bedtime. 12/05/2023 Active Start: 43-09-3691dyxptkhiyn 750 mg Tab Refills(s) 0 Start Date: 03/07/23 Status: Ordered Repeat number: 1OTC Prostate Supplement (6 sources)Start: 27-16-4916WKH Prostate Supplement OTC Prostate Supplement Start Date: 12/05/23 Status: Ordered Repeat number: 1Start: 91-84-0558BTF Prostate Supplement OTC Prostate Supplement Start Date: 12/05/23 Status: Ordered predniSONE 20 mg oral tablet (15 sources)Start: 30-86-7346igixdtOXFH 20 mg Tab Refills(s) 0 Start Date: 10/08/24 Status: Ordered Repeat number: 1Start: 10-01-2024 End: 78-03-8787mfnl 1 tablet by mouth in the morningpredniSONE (Deltasone) 20 MG tablet Indications: Lumbosacral spondylosis without myelopathy Take 1 tablet (20 mg) by mouth in the morning and 1 tablet (20 mg) in the evening. Take before meals. Do all this for 5 days. Take with food. 10 tablet 10/01/2024 10/06/2024 ActiveStart: 09-05-2024 End: 35-71-2018zzwa 1 tablet by mouth in the morningpredniSONE (Deltasone) 20 MG tablet Indications: Upper respiratory tract infection, unspecified type Take 1 tablet (20 mg) by mouth in the morning and 1 tablet (20 mg) in the evening. Take before meals. Do all this for 5 days. 10 tablet 09/05/2024 09/10/2024 Active Start: 03-12-2024 End: 10-31-2878tgyevnHIXF (Deltasone) 10 MG tablet Indications: Bilateral hand pain 2 pills three times daily for 3 days, then 2 pills twice a day for 3 days, then 1 pill twice a day for 3 days, then 1 pill daily for 3 days take with food 39 tablet 03/12/2024 06/26/2024 Discontinued (Therapy completed)Start: 79-53-0946fott 1 tablet by mouth every twelve hourspredniSONE 20 MG 1 tablet Orally bid for 5 day(s) December, Activepregabalin 50 mg oral capsule (20 sources)Start: 04-27-2024 End: 40-23-7470ukji 1 capsule by mouth in the morningpregabalin (Lyrica) 50 MG capsule Indications: Other intervertebral disc degeneration, lumbar region Take 1 capsule (50 mg) by mouth in the morning and 1 capsule (50 mg) before bedtime. 60 capsule 5 04/27/2024 06/26/2024 Discontinued (Therapy completed)Start: 51-35-7913lhbq 1 capsule by mouth in the morningpregabalin (Lyrica) 50 MG capsule Indications: Other intervertebral disc degeneration, lumbar region Take 1 capsule (50 mg) by mouth in the morning and 1 capsule (50 mg) before bedtime. 60 capsule 5 10/31/2023 ActiveStart: 23-58-9141nspg 1 capsule by mouth in the morningpregabalin (Lyrica) 50 MG capsule Take 1 capsule by mouth in the morning and 1 capsule before bedtime. 0 08/02/2023 ActiveStart: 45-80-9686rrqeufmfzi 25 mg Cap 50 mg = 2 cap(s), Refills(s) 0 Start Date: 03/07/23 Status: Ordered Repeat number: 1Start: 09-34-6610eiyp 1 capsule by mouth once dailypregabalin (LYRICA) 25 mg capsule Take 1 capsule (25 mg total) by mouth nightly. 02/01/2023 Active sildenafil 50 mg oral tablet (7 sources)Phosphodiesterase 5 InhibitorStart: 08-25-2022 End: 73-04-2351tgqmzyurpA (VIAGRA) 50 mg tablet TAKE 1 TABLET BY MOUTH prior to intercourse 08/25/2022 Activetadalafil 5 mg oral tablet (20 sources)Phosphodiesterase 5 InhibitorStart: 20-47-9625tnwg 1 tablet by mouth once as neededTadalafil 10 mg tablet Active 10 MG PO Once as needed June 06, 2025 12:00am Complies with drugtherapyStart: 43-63-2206zpxh 1 tablet by mouth every hour as needed, then take 2 tablets by mouth every twenty-four hours as neededtadalafil 10 mg Tab 10 mg = 1 tab(s), Oral, As Directed, PRN for erectile dysfunction, take 1 tab by mouth at least 1 hr prior to sexual activity, DO NOT exceed 20 mg in 24 hr period, # 30 tab(s), Refills(s) 3, Pharmacy: [id number], 178, cm, 10/08/24 10:23:00 EST, Height/Length Dosing, 143.6, kg, 02/17/25 10:23:00 EST, Weight Dosing Start Date: 10/22/24 Status: Ordered Quantity: 30.0 Unit: tab(s) Repeat number: 4 Indications: Male erectile dysfunction, unspecified;Start: 17-79-3242hlen 1 tablet by mouth once dailyTadalafil 5 mg tablet Active 5 MG PO Daily June 06, 2025 12:00am Complies with drug therapyStart: 13-78-6653rihr 1 tablet by mouth every twenty-four hours as neededtadalafil (Cialis) 10 MG tablet Take 10 mg by mouth Daily as needed for erectile dysfunction 02/21/2024 ActiveStart: 51-67-1165eknl 1 tablet by mouth every hour as needed, then take 2 tablets by mouth every twenty-four hours as neededtadalafil 10 mg Tab 10 mg = 1 tab(s), Oral, As Directed, PRN for erectile dysfunction, take 1 tab by mouth at least 1 hr prior to sexual activity, DO NOT exceed 20 mg in 24 hr period, # 30 tab(s), Refills(s) 3, Pharmacy: [id number], 178, cm, 02/21/24 9:33:00 EDT, Height/Length Dosing, 136.4, kg, 02/21/24 9:33:00 EDT, Weight Dosing Start Date: 02/21/24 Status: Orderedtamsulosin hydrochloride 0.4 mg oral capsule (13 sources)alpha-Adrenergic BlockerStart: 88-88-6107sbnr 1 capsule by mouth every twenty-four hours in the morningtamsulosin (Flomax) 0.4 MG 24 hr capsule Take 1 capsule by mouth in the morning. 0 08/03/2023 ActiveStart: 03-28-2023 End: 81-17-2959emdk 1 capsule by mouth once dailytamsulosin (Flomax) 0.4 MG 24 hr capsule Take 0.4 mg by mouth Daily 02/25/2024 Jqikrk40 actuat testosterone 20.25 mg/actuat topical gel (20 sources)AndrogenStart: 24-91-1123Txmmarfsqflk 1.62 % gel apply 2 (TWO) pumps topically EVERY MORNING 05/27/2024 ActiveStart: 79-96-1894MldpvLcb Pump 20.25 mg/1.25 g (1.62%) transdermal gel = 2 pump, Topical, qAM, # 75 gram, Refills(s) 5, Pharmacy: [id number], 178, cm, 02/21/24 9:33:00 EDT, Height/Length Dosing, 136.4, kg, 02/21/24 9:33:00 EDT, Weight Dosing Start Date: 04/19/24 Status: Ordered Completed/Discontinued Medications MedicationDrug Class(es)DatesSig (Normalized)Sig (Original)120 actuat budesonide 0.16 mg/actuat / formoterol fumarate 0.0048 mg/actuat / glycopyrrolate 0.009 m g/actuat metered dose inhaler (9 sources)Corticosteroid, beta2-Adrenergic AgonistStart: 09-13-2024 End: 46-81-1103xzzc 2 puff(s) by mouth in the morning Jyrtypv-Pljspjkywuy-Zvceucotly (Breztri Aerosphere) 160-9-4.8 MCG/ACT aerosol Indications: COPD mixed type (CMS/HCC) Inhale 2 puffs in the morning and 2 puffs before bedtime. Rinse mouth after use. 10.7 g 2 09/13/2024 10/01/2024 Discontinued (Therapy completed)CPAP (2 sources)CPAP USE WHEN SLEEPING FOR SLEEP APNEA 0 ActiveComment on above:USE WHEN SLEEPING FOR SLEEP APNEAdiazePAM 5 mg oral tablet (2 sources)Benzodiazepinediazepam (VALIUM) 5 mg tablet Take 5 mg by mouth as needed. 0 ActiveComment on above:Take 5 mg by mouth as needed.ibuprofen 800 mg oral tablet (2 sources)Nonsteroidal Anti-inflammatory DrugIbuprofen 800 MG Orally Not-Taking levoFLOXacin 750 mg oral tablet (4 sources)Quinolone AntimicrobialStart: 09-13-2024 End: 09-21-8894wfdh 1 tablet by mouth once dailylevoFLOXacin (Levaquin) 750 MG tablet Indications: COPD with exacerbation (CMS/HCC) Take 1 tablet (750 mg) by mouth Daily for 7 days 7 tablet 09/13/2024 09/25/2024 Discontinued (Therapy completed)methylPREDNISolone (1 source)CorticosteroidStart: 60-53-0255Fkcu-Medrol 80 mg May, 80 mg Toradol 30 mg/ml (1 source)Start: 66-96-7569Vdggqvz 30 mg/ml December, 30 mgtriamcinolone acetonide 40 mg/ml injectable suspension (1 source)CorticosteroidStart: 39-97-2588Trrchwe-40 December, 40 mgWrist Splint - (1 source)Start: 19-44-6255Gfxyp Splint - as directed Apr, Not-Taking Problems Active Problems Problem ClassificationProblemDateDocumented DateEpisodic/ChronicAnxiety disorders (20 sources)Generalized anxiety disorder; Translations: [Generalized anxiety disorder]Onset: 737028-07-8607AjzjqnbEwvjte; peripheral; and visceral artery aneurysms (20 sources)Aortic aneurysm; Translations: [Aortic aneurysm of unspecified site, without rupture]Onset: 475321-58-7916NvqtdzhBqzrlvh obstructive pulmonary disease and bronchiectasis (20 sources)Acute exacerbation of chronic obstructive airways disease; Translations: [Chronic obstructive pulmonary disease with (acute) exacerbation] Onset: 364016-54-3871SysdnigIylnaarnc of lipid metabolism (20 sources)Hypercholesterolemia; Translations: [Pure hypercholesterolemia, unspecified]Onset: 09-28-2023 Resolved: 714557-78-1003YqdcfglIgjwvyovrsfwaq and diverticulitis (20 sources)Diverticulitis; Translations: [Diverticulitis of intestine, part unspecified, without perforation or abscess without bleeding]Onset: 09-29-2023 28-15-6003FnqlryjJfdatxazs hypertension (20 sources)Essential (primary) hypertension; Translations: [Hypertensive disorder]Onset: 99-17-0022XnshxgcSfmcrtlfwunba symptoms and ill-defined conditions (11 sources)Urgent desire to urinate; Translations: [Urgency of urination]Onset: 99-27-0205UzulxuciOqisnlrgbti of prostate (20 sources)Benign prostatic hypertrophy with outflow obstruction; Translations: [Benign prostatic hyperplasia with lower urinary tract symptoms]Onset: 62-68-5268LjzuplzXbpvkyytm arthritis and osteomyelitis (except that caused by tuberculosis or sexually transmitted disease) (2 sources)Periostitis of ankle AND/OR foot; Translations: [Osteomyelitis, unspecified]Onset: 554300-23-6636YtygsuoBvppjthvtui chest pain (2 sources)Chest pain, unspecified; Translations: [Chest pain]Onset: 05-30-2025 EpisodicOsteoarthritis (20 sources)Arthritis of right knee; Translations: [Unilateral primary osteoarthritis, right knee]Onset: 225803-68-4403PvqofdsSbleb circulatory disease (20 sources)Disorder of aorta; Translations: [Stricture of artery]Onset: 753852-93-6097BncgkjyJzcyq diseases of kidney and ureters (7 sources)Acquired renal cyst without neoplastic change; Translations: [Cyst of kidney, acquired]Onset: 52-93-1323XjnimxsqFpgqn diseases of kidney and ureters (8 sources)Complex renal qerk82-56-3288DjodxgopCrjvw endocrine disorders (5 sources)Testicular hypofunction; Translations: [Testicular hypofunction] Onset: 12-06-7050RgxqvbaZtmtk endocrine disorders (5 sources)Male ybqezsmammte83-06-7542OomurjqFmyiv lower respiratory disease (1 source)Dyspnea; Translations: [Dyspnea and respiratory abnormalities]Episodic Other male genital disorders (20 sources)Male erectile dysfunction, unspecified; Translations: [Erectile dysfunction]Onset: 42-69-7049PfaszthUzoed male genital disorders (20 sources)Secondary erectile dysfunction; Translations: [Male erectile dysfunction, unspecified]Onset: 252777-03-2282RaejvalFfgdx nervous system disorders (2 sources)Neuroma of foot; Translations: [Lesion of plantar nerve, right lower limb]Onset: 039105-30-7092QgsqgxlVftvq nervous system disorders (1 source)Chronic pain; Translations: [Other chronic pain]ChronicOther non- traumatic joint disorders (4 sources)Pain in right hip; Translations: [PAIN IN RIGHT HIP]Onset: 01-13-2023 EpisodicOther nutritional; endocrine; and metabolic disorders (1 source)Morbid (severe) obesity due to excess calories; Translations: [MORBID SEVERE OBES D/T EXCESS PEDRO LUIS]Onset: 40-10-5251DscjqctCwcuo nutritional; endocrine; and metabolic disorders (1 source)Body mass index (BMI) 40.0-44.9, adult; Translations: [BODY MASS INDEX BMI 40.0-44.9 ADULT]Onset: 96-25-5224WpkyhokJlysx nutritional; endocrine; and metabolic disorders (20 sources)Body mass index 40+ - severely obese; Translations: [Morbid (severe) obesity due to excess calories]Onset: 377172-45-2342OcdsrhtQekst nutritional; endocrine; and metabolic disorders (20 sources)Obesity caused by energy imbalance; Translations: [Morbid (severe) obesity due to excess calories]Onset: 679450-45-3199HgvrfkkOsvvc upper respiratory disease (20 sources)Allergic rhinitis; Translations: [Other allergic rhinitis]Onset: 384431-38-6669HefkrvjKtctuyqyo (except that caused by tuberculosis or sexually transmitted disease) (1 source)Bronchopneumonia, unspecified organism; Translations: [Bronchopneumonia, unspecified organism]Onset: 78-01-1787NseuzfuvGhxhcfex codes; unclassified (20 sources)Obstructive sleep apnea syndrome; Translations: [Obstructive sleep apnea (adult) (pediatric)]Onset: 510090-22-7939BvtzzqrDbtgysbf codes; unclassified (8 sources)Chronic back hgds46-10-7311YuujjeuwHnkabwvi codes; unclassified (8 sources)Sleep -28-2168WgwihvobWhaqrcdtowu; intervertebral disc disorders; other back problems (20 sources)Lumbosacral spondylosis without myelopathy; Translations: [Spondylosis without myelopathy or radiculopathy, lumbosacral region]Onset: 076070-57-6633PievrseNedbetc and strains (1 source)Strain of muscle, fascia and tendon of lower back, initial encounter EpisodicUnclassified (4 sources)Patient encounter -20-8382 Past or Other Problems Problem ClassificationProblemDateDocumented DateEpisodic/ChronicAbdominal hernia (20 sources)Hernia of anterior abdominal wall; Translations: [Ventral hernia without obstruction or gangrene]Onset: 206279-54-5073JsbrlzxkAugkti (20 sources)Exacerbation of mild persistent asthma; Translations: [Mild persistent asthma with (acute) exacerbation]Onset: 09-28-2023 Resolved: 026493-12-0909OclezuvNdphrvse mellitus without complication (20 sources)Prediabetes; Translations: [Prediabetes]Onset: 168810-53-3990 EpisodicImmunizations and screening for infectious disease (20 sources)Needs influenza immunization; Translations: [Encounter for immunization]Onset: 933655-13-5136YcvgdavhAhwvh disorders and dislocations; trauma-related (2 sources)Tear of medial meniscus of knee; Translations: [Other tear of medial meniscus, current injury, unspecified knee, initial encounter]Onset: 07-15-2014 91-96-1062CfkzphshQhhrq aftercare (1 source)Other buttermaker (current) drug therapy; Translations: [OTH MEDICINE TEACHER CURRENT DRUG THERAPY]Onset: 40-01-9812ImwfwmduNcbxa connective tissue disease (2 sources)Plantar fasciitis; Translations: [Plantar fascial fibromatosis]Onset: 591288-77-2565YgaovendKcovt connective tissue disease (2 sources)Calcaneal spur; Translations: [Calcaneal spur, unspecified foot] Onset: 268743-84-0315RlshpdbbAbuer connective tissue disease (1 source)Rheumatism, unspecified; Translations: [RHEUMATISM UNSPECIFIED]Onset: 27-60-4299RedaukbdVxwaf connective tissue disease (4 sources)Myalgia, unspecified site; Translations: [MYALGIA UNSPECIFIED SITE] Onset: 59-26-6695LqdpqhnvBxeef connective tissue disease (20 sources)Full thickness rotator cuff tear; Translations: [Complete rotator cuff tear or rupture of unspecified shoulder, not specified as traumatic]Onset: 051092-79-6005LkldoeerAnoom connective tissue disease (20 sources)Pain of bilateral hands; Translations: [Pain in right hand]Onset: 773484-30-6509CiyvbrgvTzrrv diseases of kidney and ureters (20 sources)Cyst of kidney; Translations: [Cyst of kidney, acquired]Onset: 979887-81-2882QzxdxvjfRjtot injuries and conditions due to external causes (2 sources)Common peroneal neuropathy; Translations: [Injury of peroneal nerve at lower leg level, unspecifiedleg, initial encounter]Onset: 06-10-2014 16-47-6234UigkgztkOmuyf lower respiratory disease (20 sources)Nodule of lung; Translations: [Solitary pulmonary nodule]Onset: 375545-04-3393WwnfmqrhYwnwt lower respiratory disease (20 sources)Wheezing; Translations: [Wheezing]Onset: EpisodicOther non-traumatic joint disorders (4 sources)Pain in right shoulder; Translations: [PAIN IN RIGHT SHOULDER]Onset: 85-52-4467BbzpvkqeTnpgq non-traumatic joint disorders (4 sources)Pain in left ankle and joints of left foot; Translations: [PAIN IN LEFT ANKLE]Onset: 99-59-4603JoxcehplWfscj screening for suspected conditions (not mental disorders or infectious disease) (20 sources)Encounter for screening for malignant neoplasm of prostate; Translations: [Patient encounter status]Onset: 753138-96-3540MdfzlwdoOhnes upper respiratory infections (20 sources)Upper respiratory infection; Translations: [Acute upper respiratory infection, unspecified]Onset: 09-05-2024 Resolved: 221622-53-5441ZghctpbkPtuwyeja codes; unclassified (20 sources)Insomnia; Translations: [Insomnia, unspecified]Onset: 09-29-2023 95-79-8790KhltgdiqObeimpvnm and history of mental health and substance abuse codes (9 sources)Ex-smoker; Translations: [Personal history of nicotine dependence] Onset: 332314-07-6124HchbmsttThcvyrvxriz; intervertebral disc disorders; other back problems (20 sources)Neurogenic claudication; Translations: [Spinal stenosis, lumbar region with neurogenic claudication]Onset: 572127-24-9539QfrkexmuZpjim infection (20 sources)Disease caused by 2019-nCoV; Translations: [COVID-19]Onset: 920350-77-1945Fwfauhty Results Test NameValueInterpretationReference RangeFacilityB-TYPE NATRIURETIC PEPTIDEon 55-46-3314Zucnlezisdh peptide B (Bld) [Mass/Vol]20 pg/mLNormal<=100ProHca Houston Healthcare North CypressComment on above:Performed By: #### BNP #### [facility] ([address] [place] [address] VIRCBC WITH AUTO DIFFERENTIALon 13-82-9722BBPLRKPFV ABSOLUTE COUNT (10*3/UL) BY AUTOMATED COUNT0.1 10*3/uLNormal0.0-0.2ProMedica Saint Agnes Medical CenterComment on above:Performed By: #### CBCA #### [facility] ([address] [place] [address] VIRBASOPHILS RELATIVE PERCENT BY AUTOMATED COUNT1.2 %Normal [facility] HospitalComment on above:Performed By: #### CBCA #### [facility] ([address] [address] VIRCELLAVISION DIFFERENTIAL TYPEAUTOMATED DIFFERENTIALNormal [facility] HospitalComment on above:Performed By: #### CBCA #### [facility] ([address] [address] VIREosinophils (Bld) [#/Vol]0.1 10*3/uLNormal0.0-0.4[facility] HospitalComment on above:Performed By: #### CBCA #### [facility] ([address] [address] VIREOSINOPHILS RELATIVE PERCENT BY AUTOMATED COUNT1.7 %Normal [facility] HospitalComment on above:Performed By: #### CBCA #### [facility] ([address] [address] VIRErythrocyte distribution width (RBC) [Ratio]12.3 %Normal 11.5-15[facility] HospitalComment on above:Performed By: #### CBCA #### [facility] ([address] [place] [address] VIRHematocrit (Bld) [Volume fraction]42.2 %Exnvji75-21 [facility] HospitalComment on above:Performed By: #### CBCA #### [facility] ([address] [place] [address] VIRHemoglobin (Bld) [Mass/Vol]14.5 g/lBSdcbvn45-06RreZvpfliHca Houston Healthcare North CypressComment on above:Performed By: #### CBCA #### [facility] ([address] [place] [address] VIRLYMPHOCYTES ABSOLUTE COUNT (10*3/UL) BY AUTOMATED COUNT1.7 10*3/uLNormal1.0-3.5PCentervilleComment on above:Performed By: #### CBCA #### [facility] ([address] [address] VIRLYMPHOCYTES RELATIVE PERCENT BY AUTOMATED COUNT24.2 %Normal [facility] HospitalComment on above:Performed By: #### CBCA #### [facility] ([address] [place] [address] VIRMCH (RBC) [Entitic mass]32.7 esHumknw93-07HtoYjohljHca Houston Healthcare North CypressComment on above:Performed By: #### CBCA #### [facility] ([address] [place] [address] VIRMCHC (RBC) [Mass/Vol]34.3 g/fIKaxlry55-36SlwTfbhokHca Houston Healthcare North CypressComment on above:Performed By: #### CBCA #### [facility] ([address] [place] [address] VIRMCV (RBC) [Entitic vol]95 pIRsqcyx54-321QywMvxwdw [facility]ont HospitalComment on above:Performed By: #### CBCA #### [facility] ([address] [place] [address] VIRMONOCYTES ABSOLUTE COUNT (10*3/UL) BY AUTOMATED COUNT0.5 10*3/uLNormal0.0-0.9ProHca [facility] Healthcare North CypressComment on above:Performed By: #### CBCA #### [facility] ([facility]) [address] [place], [place] [address] [address] VIRMONOCYTES RELATIVE PERCENT BY AUTOMATED COUNT7.3 %Normal [facility] HospitalComment on above:Performed By: #### CBCA #### [facility] ([facility]) [address] [place], [place] [address] [address] VIRNEUTROPHILS ABSOLUTE COUNT BY AUTOMATED COUNT4.5 10*3/uL Normal1.5-6.6[facility] HospitalComment on above:Performed By: #### CBCA #### [facility] ([address] [place] [address] VIRNEUTROPHILS RELATIVE PERCENT BY AUTOMATED COUNT65.6 %Normal [facility] HospitalComment on above:Performed By: #### CBCA #### [facility] ([address] [place] [address] VIRPlatelet mean volume (Bld) [Entitic vol]7.2 fLNormal7-12 [facility] HospitalComment on above:Performed By: #### CBCA #### [facility] ([address] [place] [address] VIRPlatelets (Bld) [#/Vol]327 10*3/eKJyonmd480-972NqnJmbani [facility] HospitalComment on above:Performed By: #### CBCA #### [facility] ([address] [place] [address] VIRRBC COUNT4.43 X10E12/LNormal4.1-5.7ProHca Houston Healthcare North CypressComment on above:Performed By: #### CBCA #### [facility] ([address] [place] [address] VIRWBC (Bld) [#/Vol]6.9 10*3/uLNormal4-11ProHca [facility] Healthcare North CypressComment on above:Performed By: #### CBCA #### [facility] ([address] [place] [address] VIRCOMPREHENSIVE METABOLIC PANELon 50-04-0917Epckyen [Mass/Vol]3.9 g/dLNormal3.2-5.3PSt. Vincent General Hospital District HospitalComment on above: Performed By: #### CMP #### [facility] ([place] [address] [place] [address] VIRALP [Catalytic activity/Vol]58 U/ATnnggl21-746YqsLjhuycHca Houston Healthcare North CypressComment on above:Performed By: #### CMP #### [address] [place] [address] VIRALT [Catalytic activity/Vol]23 U/LNormal<=40ProHca [facility] Healthcare North CypressComment on above:Performed By: #### CMP #### [facility] ([address] [place] [address] VIRAnion gap [Moles/Vol]8 mmol/LNormal5-15ProHca [facility] North CypressComment on above:Performed By: #### CMP #### [place] [address] [place] [address] VIRAST [Catalytic activity/Vol]19 U/LNormal<=41ProH[facility] Healthcare [facility] CypressComment on above:Performed By: #### CMP #### [facility] ([place] [address] [place] [address] VIRBilirubin [Mass/Vol]0.9 mg/dLNormal0.3-1.2PSt. [facility] District HospitalComment on above:Performed By: #### CMP #### [facility] ([place] [address] [place] [address] VIRCalcium [Mass/Vol]8.6 mg/dLNormal8.5-10.5PCentervilleComment on above:Performed By: #### CMP #### [facility] ([facility]) [address] [place], [place] [address]. [place] [address] VIRChloride [Moles/Vol]104 mmol/WEvvqqn89-385WnqEqlskpHca Houston Healthcare North CypressComment on above:Performed By: #### CMP #### [facility] ([address] [place] [address] VIRCO2 [Moles/Vol]25 mmol/WXlxdeq31-57JtrCzpjga [facility] HospitalComment on above:Performed By: #### CMP #### [facility] ([address] [place] [address] VIRCreatinine [Mass/Vol]0.82 mg/dLNormal0.70-1.20ProHca [facility] Healthcare North CypressComment on above:Result Comment: METHOD TRACEABLE TO IDMS STANDARDPerformed By: #### CMP #### [facility] ([address] [place] [address] VIREGFR (CKD-EPI) NON-RACE DEPENDENT>^90Normal>=60ProHca [facility] Healthcare North CypressComeaton rapids medical center on above:Result Comment: eGFR not reported due to non- numeric value for Creatinine. Reported eGFR is based on the CKD-EPI 2021 equation that does not use a race coefficient.Performed By: #### CMP #### [facility] ([address] [place] [address] VIRGlucose [Mass/Vol]85 mg/hWKwpxuo21-67AefEkucsvHca Houston Healthcare North CypressComment on above:Performed By: #### CMP #### [facility] ([address] [place] [address] VIRPotassium [Moles/Vol]3.6 mmol/LNormal3.5-5.0ProHca [facility] Healthcare North CypressComment on above:Performed By: #### CMP #### [facility] ([address] [place] [address] VIRProtein [Mass/Vol]6.9 g/dLNormal6.0-8.0ProH[facility] CypressComment on above:Performed By: #### CMP #### [facility] ([address] [place] [address] VIRSodium [Moles/Vol]137 mmol/MQzrsmf638-976BlfEbpvts [facility] HospitalComment on above:Performed By: #### CMP #### [facility] ([address] [place] [address] VIRUrea nitrogen [Mass/Vol]17 mg/dLNormal5-23ProHca [facility] CypressComment on above:Performed By: #### CMP #### [facility] ([address] [place] [address] VIRCT CTA ABD AND PELVISon [id number] CTA ABD AND PELVISCT CTA ABD AND PELVIS CTA abdomen and pelvis with contrast, 05/30/2025 [...] by Ricki Sears MD on 05/30/2025 3:56 [facility]CT [facility] CHESTon [id number] CTA CHESTCT CTA CHEST CT CTA CHEST CLINICAL INDICATION: known h/o aneurysm, worsening CP and periscapular pain. COMPARISON STUDY: None available at time of dictation.. TECHNIQUE: CT was performed using 100 mL Omnipaque 350 intravenous contrast, without complication. Coronal, sagittal and 3-D volume rendered maximum intensity projection images generated and reviewedunder concurrent physician supervision. FINDINGS: CHEST: Heart & Pericardium: Unremarkable cardiac morphology. No significant pericardial effusion. Thoracic Aorta & Great Vessels: Normal in diameter. Pulmonary Arteries: No main or lobar pulmonary artery embolus. Phase of contrast limits evaluation of the segmental [...] Bronchial wall thickening, tree-in-bud nodularity right lower lobe, consider bronchopneumonia. 3. Nonspecific groundglass lucencies T7 vertebral body and manubrium. Consider follow-up bone scan. All CT scans at this facility use dose modulation, iterative reconstruction, and/or weight based dosing when appropriate to reduce radiation dose to as low as reasonably achievable. Finalized by Rogelio Lyons on 05/30/2025 3:51 PMNormalProHca [facility] Healthcare [facility]ress TROP I, HIGH SENSITIVITY 1 HOURon 95-79-1541EHSXQDRS I, HIGH SENSITIVITY2 ng/L Normal<21ProHca [facility] Healthcare North CypressComment on above:Performed By: #### [email or web address] #### [facility] ([facility]) [address] [place] [address]. [place] [address] VIRTROPONIN I, HIGH SENSITIVITY 0 HOURon 02-50-8290NSOXOLIM I, HIGH SENSITIVITY2 ng/LNormal<21[facility] HospitalComment on above: Performed By: #### [email or web address] #### [facility] ([facility]) [address] [place] [address] VIRTestost Totalon 65-16-1717Calbmgpbn Pcv676 ng/dLInvalid Interpretation Gthx382-286XkezhhHenry County HospitalComment on above:Result Comment: Adult male reference interval is based on a population of healthy nonobese males (BMI <30) between 19 and 39 years old. Cody et.al. JCEM 2017,102;3540-5720. PMID: [id number]. Performed at: [facility] [address] [id number] PhD Mindy Mcdonaldformed By: #### [id number] #### [facility] [address] [place], [place] [address]Mnhvkob Office/Clinic Noteon [id number] Office/Clinic NoteUrology Office/Clinic Note Chief Complaint 7 month f.u HPI Staff 7 month f/u (pt r/s'd appt). Previous dx: BPH with nocturia, urgency, ED, PSA screening, hypogonadism, renal cyst. *Androgel 1 pump daily (decreased from 2 pumps at prior OV due to high T level), Tadalafil 5 mg qd Current Testosterone ??, Hct ?? Previous PSA 03/10/23 - 0.65 Current PSA ?? IPSS: 16 Pt has not had any lab work done. Pt denies dysuria, denies visible blood in urine. No urinary issues at this time History of Present Illness I have reviewed and verified the staff HPI to be accurate for this encounter. Portions of this record may have been created with voice recognition artificial intelligence software, specifically [employer] and or [employer]. Substitutions may have occurred due to the inherent limitations of voice recognition and artificial intelligence software. Review of Systems PHQ Score Initial Depression Screen Score: 0 SCORE Physical Exam Vitals & Measurements HR: 72(Peripheral) BP: 106/66 HT: 70 in HT: 178 cm WT: 287.923 lb WT: 130.6 kg BMI: 41.22 General: Well developed, well nourished, in no acute distress. Assessment/Plan PRW pt 1. Hypogonadism male (E29.1: Testicular hypofunction) Testosterone: 04/01/23 - 299 11/30/23 - 327 04/12/24 - 266 - started Androgel 2 PPD 06/20/24 - 494, Hct 42.8, PSA 0.89 09/29/24 - >1500 [abnormal] sxs of ED, fatigue, low libido, difficulty losing weight At prior OV, pt was to decrease Androgel to 1 PPD w/ close f/u visit 8 wk w/ repeat labs. Pt cancelled appt and was lost to f/u. Has not been on Androgel for several mos altogether. He had improvement of sxs w/ 2 PPD. Said he was able to lose 40 lb over several mos on Androgel, but has not able to lose any more. Does feel his sxs are not as severe as previously, but does feel hewas worsened energy level and libido w/o testosterone -T level drawn IO today, will all pt w/ further instruction. Plan to restart Androgel 1 PPD -f/u 8 wk w/ repeat labs Ordered: Lab Specimen Collect 35770 Testosterone Level Total Urnls Dip Stick Auto w/o Microscopy POC 42949 2. BPH associated with nocturia (N40.1: Benign prostatic hyperplasia with lower urinary tract symptoms) IPSS 16 (11), QoL 2 UA today w/o blood or infection taking tadalafil 5 mg QD, tolerating w/o SEs. Feels this is working well for him and does not wish to make any changes at this time. opted against cysto previously. -cont to monitor Ordered: Urnls Dip Stick Auto w/o Microscopy POC 79561 3. Erectile dysfunction (N52.9: Male erectile dysfunction, unspecified) JEFFREY (15) Taking additional 10 mg tadalafil PRN for ED. Denies SEs. states working well for him -cont tadalafil, DO NOT exceed 20 mg in 24 hr Ordered: Urnls Dip Stick Auto w/o Microscopy POC 86156 4. Prostate cancer screening (Z12.5: Encounter for screening for malignant neoplasm of prostate) PSA: 03/10/23 - 0.65 11/29/22 - 1.48 06/20/24 - 0.89 No PSA since prior OV. Pt did not get labs for today. Overdue. -PSA drawn IO today Ordered: Urnls Dip Stick Auto w/o Microscopy POC 95472 5. Renal cyst (N28.1: Cyst of kidney, acquired) SUJIT 02/16/23 - slightly complex cyst in left kidney measuring 3.6 x 3.[address] AP w con 03/11/23 [facility] - re demonstrated LLP 4.0cm fluid density lesion consistent with a cyst, negative for cancer. Per CT scan, cyst is not complex. Simple cysts do not require monitoring Ordered: Urnls Dip Stick Auto w/o Microscopy POC 51936 Follow-up With When Contact Information Mac BOURGEOIS, EMETERIO-C, Wendi X, FAM, URL Additional Instructions: 8 wk w/ labs Patient Education Hypogonadism, Male Erectile Dysfunction Benign Prostatic Hyperplasia Problem List/Past Medical History Ongoing Aortic aneurysm BPH associated with nocturia Chronic back pain Complex renal cyst Erectile disorder Erectile dysfunction Hypertension Hypogonadism male Morbid obesity with BMI of 40.0-44.9, adult Prostate cancer screening Renal cyst Sleep disorder Urgency of urination Historical No qualifying data Procedure/Surgical History C-RFA (cooled radiofrequency ablation) of nerve using ultrasonography guidance, Hydrocelectomy, Knee, Large bowel resection, Shoulder. Medications amitriptyline 50 mg Tab busPIRone 10 mg Tab Cialis 5 mg oral tablet, 5 mg= 1 tab(s), Oral, Daily, 11 refills cyclobenzaprine 10 mg Tab, 10 mg= 1 tab(s), Oral, TID, PRN fluticasone Nasal 0.05 mg/inh Pisinemo hydrochlorothiazide-lisinopril 12.5 mg-10 mg Tab hydroxychloroquine 200 mg Tab montelukast 10 mg Tab nabumetone 750 mg Tab OTC Prostate Supplement predniSONE 20 mg Tab pregabalin 25 mg Cap, 50 mg= 2 cap(s) tadalafil 10 mg Tab, 10 mg= 1 tab(s), Oral, As Directed, PRN, 3 refills Allergies Demerol (Hallucinations) morphine (Hallucinations) penicillin (Nausea and vomiting) Social History Alcohol Never., 06/26/2024 (more content not included)...[facility] Medical CenterComment on above: Result Comment: Electronically Signed By: RENETTA Watts APRN, Wendi Acuna\.br\Date and Time Signed: 05/20/25 11:40 BMQVsK4t (Bld) [Mass fraction]on 03-19-2025 Interpretation and review of laboratory resultsNoLexington Medical Center HealthcareLaboratory - Hematology and Cell countson 85-62-6556KoC9x (Bld) [Mass fraction]5.7 %NOM HealthcareALL CBC WITH AUTO DIFFon 27-39-6395XFWEDEDKH ABSOLUTE AUTO0.1NOMS HealthcareBasophils/100 WBC (Bld)1.1 %0.2 - 2.0 %[facility] HealthcareEosinophils/100 WBC (Bld)1.8 %0.9 - 7.0 %[facility] CenterErythrocyte distribution width (RBC) [Ratio]12.2 %11.0 - 15.0 %[facility] CenterHematocrit (Bld) [Volume fraction]40.9 %Low42.0 - 54.0 %[facility] CenterHemoglobin (Bld) [Mass/Vol]14.1 g/dL14.0 - 18.0 g/dLNOCedar County Memorial HospitalIMMATURE GRANULOCYTES ABS AUTO 0.02NOMS HealthcareImmature granulocytes/100 WBC (Bld)0.3 %0.0 - 0.5 %[facility] HealthcareInterpretation and review of laboratory resultsAbnormalNOMS Healthcare LYMPHOCYTES ABSOLUTE AUTO1.7NOIL HealthcareLymphocytes/100 WBC (Bld)24.2 %20.5 - 60.0 %[facility] CenterMCH (RBC) [Entitic mass]33 pg25.9 - 34.0 pgNOIL Healthcare MCHC (RBC) [Mass/Vol]34.5 g/dL29.9 - 35.2 g/dLNortheast Regional Medical CenterMCV (RBC) [Entitic vol]95.8 qFPptu27.0 - 94.0 fLASHLEY REGIONAL MEDICAL [facility]ENTER HealthcareMONOCYTES ABSOLUTE AUTO0.6NOIL HealthcareMonocytes/100 WBC (Bld)8.4 %1.7 - 12.0 %[facility] HealthcareNEUTROPHILS ABSOLUTE AUTO4.6N[facility]S HealthcareNeutrophils/100 WBC (Bld)64.2 %43.0 - 75.0 %[facility] HealthcarePlatelet mean volume (Bld) [Entitic vol]9 fLLow9.5 - 13.5 fLNortheast Regional Medical CenterTBH EO #0.1NOMS HealthcareTBH [id number] HealthcareTBH RBC4.27LowNOCedar County Memorial HospitalTBH WBC7.1NOMS HealthcareCLINISYNCNOMS HealthcareAmbulatory Visit Summaryon 32-34-4583Kokrzhxbip Visit SummaryAmbulatory Visit Summary MARCEL WAHL :1965 Visit Date:10/08/2024 Ambulatory Visit Instructions Your Diagnosis BPH associated with nocturia Urgency of urination Erectile disorder Prostate cancer screening Hypogonadism male Renal cyst Your Care Team Attending Physician - RENETTA Watts APRN, [place] X Primary Care Physician - SHAVONNE CHOWDARY CNP This Is Your Medications List Contact prescribing physician if questions or concerns Non-Formulary Medication (OTC Prostate Supplement) amitriptyline (amitriptyline 50 mg Tab) busPIRone (busPIRone 10 mg Tab) cyclobenzaprine (cyclobenzaprine 10 mg Tab) fluticasone nasal (fluticasone Nasal 0.05 mg/inh Pisinemo) hydrochlorothiazide-lisinopril (hydrochlorothiazide-lisinopril 12.5 mg-10 mg Tab) hydroxychloroquine (hydroxychloroquine 200 [...] What to do next Scheduled Follow-Up Appointments 2024 10:20 AM EDT With: RENETTA Watts APRN, Wendi Acuna Where: [facility] [address] [place] [address]- Medications What How Much When Why Instructions [...] fluticasone nasal (fluticasone Nasal 0.05 mg/ inh Pisinemo) Contact prescribing physician if questions or concerns Unchanged hydrochlorothiazide-lisinopril (hydrochlorothiazide-lisinopril 12.5 mg-10 mg Tab) Contactprescribing physician if questions or concerns Unchanged hydroxychloroquine [...] Mouth As Directed as needed for for erectiledysfunction Erectile dysfunction take 1 tab by mouth at least 1 hr prior to sexual activity, DO NOTexceed 20 mg in 24 hr period Contact prescribing physician if questions or concerns Unchanged testosterone (AndroGel Pump 20.25 mg/ 1.25 g (1.62%) transdermal gel) 2 Pump Topical Oncea day (in the morning) Contact prescribing physician [...] you for choosing us for your care. [facility] CenterUrology Office/Clinic Noteon 54-31-0345Bouxqxi Office/Clinic NoteUrology Office/Clinic Note Chief Complaint 3 month follow [...] of TRT. -[place] order with [place] [place] 5. Hypogonadism male (E29.1: Testicular hypofunction) Testosterone: [...] With When Contact Information RENETTA Watts APRN, eWndi Acuna, CHUNG, URL Additional Instructions: Follow up 8 weeks w results or sooner if needed Patient Education Hypogonadism, Male Malena Kauffman, personally scribed for RENETTA Mauricio APRN on 10/08/2024 11:12:14. . Documentation recorded by the jamee Mora accurately reflects the services(s) I performed and decisions made by me. Authenticated by Wendi Watts APRN, FNP-C on 10/08/2024 12:03:48. Problem List/Past Medical History Ongoing Aortic aneurysm BPH associated with nocturia Chronic back pain (more content not included)...[facility] CenterComment on above:Result Comment: Electronically Signed By: RENETTA Watts APRN, [place] X\.br\Date and Time Signed: 10/08/24 12:04 EST\.br\Electronically Co-Signed By: Malena Mora\.br\Date and Time Co-Signed: 10/08/24 11:13 ESTALL TESTOSTERONEon 54-38-8439Lepaejxkhhfriz and review of laboratory results AbnormalNOMS HealthcareTestosterone [Mass/Vol]ng/lUVmlhpgxi054 - 916 ng/dLNOMS HealthcareComment on above:Adult male reference interval is based on a population of healthy nonobese males (BMI <30) between 19 and 39 years old. Cody, et.al. JCEM 2017,102;8701-0969. PMID: 14843354. Performed at: [address] [id number] Crossbar Switch Adjuster: Rodrick Guillen PhD, Phone: [phone] Specimen Comment: A duplicate report has been generated due to demographic Specimen Comment: updates. CLINISYNCNOIL HealthcareXR CHEST 2Von 05-80-7604[place] [id number] XRay Report Signed Patient: MARCEL WAHL MR#: [id number] : 1965 Acct:[id number] Age/Sex: 59 / M ADM Date: 09/13/24 Loc: RAD Attending Dr: Shavonne Chowdary NP Ordering Physician: Shavonne Chowdary NP Date of Service: 09/13/24 Procedure(s): XR chest 2V Accession Number(s): [id number] cc: Shavonne Chowdary NP [place] [id number] Patient Name: MARCEL WAHL MRN: [id number] date: 1965 Sex: M Assigned Patient Location: RAD Current Patient Location: RAD Accession/Order Number: [id number] Exam Date: 09/13/2024 11:35 Report Date: 09/13/2024 12:08 At the request of: SHAVONNE CHOWDARY Procedure: XR chest 2V EXAM: CHEST 2 VIEWS HISTORY: Chronic Obstructive Pulmonary Disease With Exacerbation TECHNIQUE: PA and lateral views chest. COMPARISON: None. FINDINGS: The lungs are clear. There is no focal lung consolidation, pleural effusion or pneumothorax. Pulmonary vasculature is within normal limits. There is tortuosity of the thoracic aorta. Heart size is normal. Right shoulder arthroplasty noted. XR/XR chest 2V IMPRESSION: 1. No acute cardiopulmonary disease. Electronically authenticated by: JOAN LOFTON Date: 09/13/2024 12:08 Dictated By: Joan Lofton M.D. Signed By: 09/13/24 1210 DD/ 1208 TD/TT: Major Account Manager:TBHRadiology, Radiologist, - 09/13/2024 [place] [address] XRay Report Signed Patient: MARCEL WAHL MR#: [id number] : 1965 Acct:[id number] Age/Sex: 59 / M ADM Date: 09/13/24 Loc: RAD Attending Dr: Shavonne Chowdary NP Ordering Physician: Shavonne Chowdary NP Date of Service: 09/13/24 Procedure(s): XR chest 2V Accession Number(s): [id number] cc: Shavonne Chowdary NP The [place] [id number] Patient Name: MARCEL WAHL MRN: [id number] date: 1965 Sex: M Assigned Patient Location: [facility] Current Patient Location: [facility] Accession/Order Number: [id number] Exam Date: 09/13/2024 11:35 Report Date: 09/13/2024 12:08 At the request of: SHAVONNE CHOWDARY Procedure: XR chest 2V EXAM: CHEST 2 VIEWS HISTORY: Chronic Obstructive Pulmonary Disease With Exacerbation TECHNIQUE: PA and lateral views chest. COMPARISON: None. FINDINGS: The lungs are clear. There is no focal lung consolidation, pleural effusion or pneumothorax. Pulmonary vasculature is within normal limits. There is tortuosity of the thoracic aorta. Heart size is normal. Right shoulder arthroplasty noted. XR/XR chest 2V IMPRESSION: 1. No acute cardiopulmonary disease. Electronically authenticated by: JOAN LOFTON Date: 09/13/2024 12:08 Dictated By: Joan Lofton M.D. Signed By: 09/13/24 1210 DD/ 1208 TD/TT: Major Account Manager: VALERY HealthcareRadiology Study observation (narrative)NOM HealthcareXR CHEST 2V Ordered By: Radiologist Radiology on 13-27-0388DOVH Healthcare Work Phone: Reminderson [phone] From: Harriet Adames To: EU - Administrative; Sent: 06/26/2024 13:05:04 EST Show up: 07/22/2024 13:04:00 EST Subject: Ambulatory Reminder Due Date/Time: 09/25/2024 13:04:00 EST Reminder/Recall Patient needs scheduled with AO for a 3 month F/U with testosterone levels, due back in September 2024 LVM Pt called to schedule. Scheduled 3 mos f/up with [facility] in [place] office on 10/08/2024 with AO. [facility] CenterALL CBC WITH AUTO DIFFon 39-88-7034WSZPHTQDY ABSOLUTE AUTO0.1NOMS HealthcareBasophils/100 WBC (Bld)0.7 %0.2 - 2.0 %NOMS HealthcareEosinophils/100 WBC (Bld)2.2 %0.9 - 7.0 %NOMS HealthcareErythrocyte distribution width (RBC) [Ratio]11.5 %11.0 - 15.0 %NOMS HealthcareHematocrit (Bld) [Volume fraction]41.7 %Low42.0 - 54.0 %NOM HealthcareHemoglobin (Bld) [Mass/Vol]13.8 g/dLLow14.0 - 18.0 g/dLNOIL HealthcareIMMATURE GRANULOCYTES ABS AUTO0.02NOMS HealthcareImmature granulocytes/100 WBC (Bld)0.3 %0.0 - 0.5 %NOMS HealthcareInterpretation and review of laboratory resultsAbnormalNOMS Healthcare LYMPHOCYTES ABSOLUTE AUTO1.7NOMS HealthcareLymphocytes/100 WBC (Bld)25.4 %20.5 - 60.0 %[facility] Psychiatric CenterH (RBC) [Entitic mass]32.5 pg25.9 - 34.0 pgResearch Psychiatric CenterHC (RBC) [Mass/Vol]33.1 g/dL29.9 - 35.2 g/dLResearch Psychiatric CenterV (RBC) [Entitic vol]98.3 sCXxfi81.0 - 94.0 fLNortheast Regional Medical CenterMONOCYTES ABSOLUTE AUTO0.5 [facility] CenterMonocytes/100 WBC (Bld)8.1 %1.7 - 12.0 %[facility] NEUTROPHILS ABSOLUTE AUTO4.2NOMS [facility] HospitalNeutrophils/100 WBC (Bld)63.3 %43.0 - 75.0 %[facility] Medical CenterPlatelet mean volume (Bld) [Entitic vol]9 fLLow9.5 - 13.5 fLNortheast Regional Medical CenterTBH EO #0.2NOMS [facility] HospitalTB QEN119KEZESaint Luke's Health System RBC4.24 LowNortheast Regional Medical CenterTB WBC6.7N[facility] Medical CenterCLINISYNPiedmont Medical Center HGB HCTon 26-49-3439Jdmredjait (Bld) [Volume fraction]42.8 %42.0 - 54.0 %[facility] Hemoglobin (Bld) [Mass/Vol]14.5 g/dL14.0 - 18.0 g/dLSelect Specialty Hospital [facility] TESTOSTERONEon 98-09-5592Dnrkvcepmmpk [Mass/Vol]266 ng/dL264 - 916 ng/dLNortheast Regional Medical CenterComment on above:Adult male reference interval is based on a population of healthy nonobese males (BMI <30) between 19 and 39 years old. Cody et.al. JCEM 2017,102;7380-8200. PMID: 76961372. Performed at: - [facility] [id number] Crossbar Switch Adjuster: Rodrick Guillen PhD, Phone: [phone] [facility] HealthcareXR CERVICAL SPINE 2-3Von 30-63-0777Lzn[address] [address] XRay Report Signed Patient: MARCEL WAHL MR#: [id number] : 1965 Acct:[id number] Age/Sex: 58 / M ADM Date: 03/20/24 Loc: RAD Attending Dr: Shavonne Chowdary [employer] Ordering Physician: Shavonne Chowdary NP Date of Service: 03/20/24 Procedure(s): XR cervical spine 2-3V Accession Number(s): [id number] cc: Shavonne Chowdary NP The [place] [address] Patient Name: MARCEL WAHL MRN: [id number] date: 1965 Sex: M Assigned Patient Location: [facility] Current Patient Location: Accession/Order Number: [id number] Exam Date: 03/20/2024 13:38 Report Date: 03/22/2024 04:57 At the request of: SHAVONNE CHOWDARY Procedure: XR cervical spine 2-3V EXAMINATION: XR cervical spine 2-3V HISTORY: Bilateral Hand Pain, Cervical Neck Radiculopathy COMPARISON: No relevant comparison available. FINDINGS: BONES: Straightening of normal lordotic curvature. C3-C4 moderate degenerative facet arthropathy on right. Multilevel mild degenerative facet arthropathy. DISC SPACES: Moderate narrowing and small posterior endplate osteophytes at C4-C5, C5-C6, C6-C7. PARASPINOUS: Negative. No paraspinous abnormality is seen. OTHER: Negative. XR/XR cervical spine 2-3V IMPRESSION: 1. Multilevel moderate or greater degenerative changes. 2. No appreciable acute abnormality. Electronically authenticated by: LISSETTE MCCAIN Date: 03/22/2024 04:57 Dictated By: Lissette Mccain M.D. Signed By: 03/22/24 0501 DD/ 0457 TD/TT: Major Account Manager:MEIadiology, Radiologist, - 03/22/2024 [place] [address] XRay Report Signed Patient: MARCEL WAHL MR#: [id number] : 1965 Acct:[id number] Age/Sex: 58 / M ADM Date: 03/20/24 Loc: RAD Attending Dr: Shavonne Chowdary [employer] Ordering Physician: Shavonne Chowdary NP Date of Service: 03/20/24 Procedure(s): XR cervical spine 2-3V Accession Number(s): [id number] cc: Shavonne Chowdary NP [place] [id number] Patient Name: MARCEL WAHL MRN: [facility]:[id number] date: 1965 Sex: M Assigned Patient Location: [facility] Current Patient Location: Accession/Order Number: [id number] Exam Date: 03/20/2024 13:38 Report Date: 03/22/2024 04:57 At the request of: SHAVONNE CHOWDARY Procedure: XR cervical spine 2-3V EXAMINATION: XR cervical spine 2-3V HISTORY: Bilateral Hand Pain, Cervical Neck Radiculopathy COMPARISON: No relevant comparison available. FINDINGS: BONES: Straightening of normal lordotic curvature. C3-C4 moderate degenerative facet arthropathy on right. Multilevel mild degenerative facet arthropathy. DISC SPACES: Moderate narrowing and small posterior endplate osteophytes at C4-C5, C5-C6, C6-C7. PARASPINOUS: Negative. No paraspinous abnormality is seen. OTHER: Negative. XR/XR cervical spine 2-3V IMPRESSION: 1. Multilevel moderate or greater degenerative changes. 2. No appreciable acute abnormality. Electronically authenticated by: LISSETTE MCCAIN Date: 03/22/2024 04:57 Dictated By: Lissette Mccain M.D. Signed By: 03/22/24 0501 DD/ 0457 TD/TT: Major Account Manager: NOMJeannette HealthcareRadiology Study observation (narrative)NOMS HealthcareXR CERVICAL SPINE 2-3VOrdered By: Radiologist Radiology on 83-92-6740VFCL Healthcare Work Phone: XR Hand - bilateral 2 Viewson 62-61-3785Lko[address] [address] XRay Report Signed Patient: MARCEL WAHL MR#: [id number] : 1965 Acct:[id number] Age/Sex: 58 / M ADM Date: 03/08/24 Loc: LAB Attending Dr: Shavonne Chowdary [employer] Ordering Physician: Shavonne Chowdary NP Date of Service: 03/08/24 Procedure(s): XR hand APOLLO 2V Accession Number(s): [id number] cc: Shavonne Chowdary [employer] The [place] [address] Patient Name: MARCEL WAHL MRN: [facility]:[id number] date: 1965 Sex: M Assigned Patient Location: LAB Current Patient Location: Accession/Order Number: [id number] Exam Date: 03/08/2024 12:32 Report Date: 03/09/2024 04:45 At the request of: SHAVONNE CHOWDARY Procedure: XR hand APOLLO 2V EXAMINATION: XR hand APOLLO 2V HISTORY: bilateral hand pain COMPARISON: No relevant comparison available. FINDINGS: RIGHT FINDINGS: BONES: 2 lytic lesions within head of second metacarpal, and one within head of the third metacarpal. No significant joint space narrowing. Tiny periarticular osteophytes along the proximal articular margins of the first, second, third proximal phalanges. SOFT TISSUES: No visible soft tissue swelling. OTHER: Negative. LEFT FINDINGS: BONES: Tiny periarticular osteophytes along the proximal margins of the third proximal phalanx. SOFT TISSUES: No visible soft tissue swelling. OTHER: Negative. XR/XR hand APOLLO 2V IMPRESSION: RIGHT CONCLUSION: 1. Small erosive changes within head of second and third metacarpal which may be secondary to rheumatoid arthritis. Small periarticular osteophytes of the first, second, third metacarpal phalangeal joints are more typical of osteoarthritis. LEFT CONCLUSION: 1. Minimal arthritic changes favoring osteoarthritis. Electronically authenticated by: LISSETTE MCCAIN Date: 03/09/2024 04:45 Dictated By: Lissette Mccain M.D. Signed By: 03/09/248 DD/ 4 TD/TT: Major Account Manager:BITAHRadiology, Radiologist, - 03/13/2024 [place] [address] XRay Report Signed Patient: MARCEL WAHL MR#: [id number] : 1965 Acct:[id number] Age/Sex: 58 / M ADM Date: 03/08/24 Loc: LAB Attending Dr: Shavonne Chowdary NP Ordering Physician: Shavonne Chowdary NP Date of Service: 03/08/24 Procedure(s): XR hand APOLLO 2V Accession Number(s): [id number] cc: Shavonne Chowdary NP [place] [address] Patient Name: MARCEL WAHL MRN: [id number]:[id number] date: 1965 Sex: M Assigned Patient Location: LAB Current Patient Location: Accession/Order Number: [id number] Exam Date: 03/08/2024 12:32 Report Date: 03/09/2024 04:45 At the request of: SHAVONNE CHOWDARY Procedure: XR hand APOLLO 2V EXAMINATION: XR hand APOLLO 2V HISTORY: bilateral hand pain COMPARISON: No relevant comparison available. FINDINGS: RIGHT FINDINGS: BONES: 2 lytic lesions within head of second metacarpal, and one within head of the third metacarpal. No significant joint space narrowing. Tiny periarticular osteophytes along the proximal articular margins of the first, second, third proximal phalanges. SOFT TISSUES: No visible soft tissue swelling. OTHER: Negative. LEFT FINDINGS: BONES: Tiny periarticular osteophytes along the proximal margins of the third proximal phalanx. SOFT TISSUES: No visible soft tissue swelling. OTHER: Negative. XR/XR hand APOLLO 2V IMPRESSION: RIGHT CONCLUSION: 1. Small erosive changes within head of second and third metacarpal which may be secondary to rheumatoid arthritis. Small periarticular osteophytes of the first, second, third metacarpal phalangeal joints are more typical of osteoarthritis. LEFT CONCLUSION: 1. Minimal arthritic changes favoring osteoarthritis. Electronically authenticated by: LISSETTE MCCAIN Date: 03/09/2024 04:45 Dictated By: Lissette Mccain M.D. Signed By: 03/09/24 0448 DD/ 0445 TD/TT: Major Account Manager: VALERY HealthcareRadiology Study observation (narrative)[facility] HealthcareXR Hand - bilateral 2 ViewsOrdered By: Radiologist Radiology on 42-82-1569GPCD Healthcare Work Phone: cNPAngelica [phone] ([facility]NAHNEW [facility]) GLENROYMARCEL Jones ([id number]) 1965 M Date Time Provider Department 04/21/23 [...] via Dr. Shaikh Liang's office. Roselia nurse [phone] Diagnosis: aneurysm All records are in Epic Oksana Spear RN 05/06/2023 1:57 PM Addendum I have called and discussed with Marcel Brown recommendations which are there is no indication for surgery. He should continue to follow up with his director peoplesoft with yearly echo and CTA when aorta enlarged close to 5 cm. Also, blood pressure control is essential to keep aorta size stable. He verbalized understanding Oksana Spear RN diagnosis: aorta 4.1 cm on echo history: obesity, chronic back pain, anxiety, asthma, HTN, SALVATORE, Referring Provider: SHAIKH LIANG [[id number]] Allergies As of Date: 04/21/2023 Noted Allergy Reaction DEMEROL (MEPERIDINE (PF)) 06/10/2014 1 - Mental Status Change MORPHINE 06/10/2014 1 - Mental Status Change PENICILLINS 03/03/2005 Date Reviewed: 09/30/2014 Reviewed by: Coco Steinberg RN - Fully Assessed Reason for Visit: Referral Information [[id number]] Prescriptions as of 05/06/2023 - HYDROcodone-Acetaminophen (NORCO) 10-325 mg per tablet Take [...] 07/15/2014 Encounter Status:Closed by OKSANA SPEAR on 05/06/23[facility] AUTO DIFFon 25-69-2330HBGO #0.1 103/ulNormal0.0-0.1The [facility]'S HospitalComment on above:Performed By: #### CBC ####[facility] M[address]wo[address] [place], [place] [address]Dr.Yilan ChangBasophils/100 WBC (Bld)0.8 %Normal0.2-2.0The [facility] Anthony'S HospitalComment on above:Performed By: #### CBC ####[facility] Lljthgwpns87[address] [place] [address]Dr.Yilan ChangEO #0.2 103/ulNormal0.0-0.7The [facility]'S HospitalComment on above:Performed By: #### CBC ####[facility] [address]vsozs[address]gf[address] [place], [place] [address]Dr.Yilan ChangEosinophils/100 WBC (Bld)1.6 %Normal 0.9-7.0The [facility]'S HospitalComment on above:Performed By: #### CBC ####[facility] Tcooszsnai73[address] [place] [address]Dr.Gema Beck Erythrocyte distribution width (RBC) [Ratio]11.8 %Mwehnq36.0-15.0The [facility]'S HospitalComment on above:Performed By: #### CBC ####[facility] Xfim[address]xv[address] [place], [place] [address]Dr.Gema BeckHematocrit (Bld) [Volume fraction]43.3 %Canvks49.0-54.0The [facility]erton HospitalComment on above:Performed By: #### CBC ####[facility] Lbmjaggdzh[address] [place], [place] [address]Dr.Gema BeckHemoglobin (Bld) [Mass/Vol]14.2 g/dL Tztukd03.0-18.0The [facility]'S HospitalComment on above:Performed By: #### CBC ####[facility] Mcrjgydabz[address] [place], [place] [address]Dr. Gema BeckIG #0.07 10e3/ulCritically high0.00-0.03The [facility] Anthony'S HospitalComment on above:Performed By: #### CBC ####[facility] Smfbhhobow[address] [place], [place] [address]Dr.Gema BeckIG %0.7 %Critically high0.0-0.5The [facility] HospitalComment on above:Performed By: #### CBC ####[facility] Gzqmmlmraw[address] [place], [place] [address]Dr.Gema BeckLYMPH #2.6 103/ulNormal1.2-3.8The St. Anthony'S HospitalComment on above:Performed By: #### CBC ####[facility] Myqqijxzkt[address] [place], [place] [address]Dr. Gema BeckLymphocytes/100 WBC (Bld)27.0 %Lzxyjm37.5-60.0The [facility] Comment on above:Performed By: #### CBC ####[facility] Kzftcozqrl[address] [place], [place] [address]Dr.Gema BeckMANUAL DIFF REQNONormalThe Mario HospitalComment on above:Performed By: #### CBC ####[facility] Stzacvkheg64[address] [place] [address]Dr.Gema BeckH (RBC) [Entitic mass]32.1 siEsadus88.9-34.0The [facility] HospitalComment on above: Performed By: #### CBC ####[facility] Ckbetoeagv[address] [place], [place] [address]Dr.Gema BeckHC (RBC) [Mass/Vol]32.8 g/dLNormal 29.9-35.2The [facility] HospitalComment on above:Performed By: #### CBC ####[facility] Pazviaafaa[address] [place], [place] [address]Dr. Gema BeckV (RBC) [Entitic vol]98.0 fLCritically high80.0-94.0The [facility] HospitalComment on above:Performed By: #### CBC ####[facility] Wiuuzbjvoi[address] [place], [place] [address]Dr.Gema BeckMONO #0.7 103/ulNormal0.3-0.8The [facility] HospitalComment on above:Performed By: #### CBC ####[facility] Diilzjhtfx[address] [place], [place] [address]Dr. Gema KiranMonocytes/100 WBC (Bld)7.8 %Normal1.7-12.0The [facility] Comment on above:Performed By: #### CBC ####[facility] Apcwhtuien[address] [place], [place] [address]Dr.Gema BeckNEUT #5.9 103/ulNormal1.4-6.[address] [facility]'S HospitalComment on above:Performed By: #### CBC ####[facility] Gwotbzqvrv[address] [place], [place] [address]DrSohailEnedeliaamairani Beck Neutrophils/100 WBC (Bld)62.1 %Axuchs85.0-75.0The [facility]'S HospitalComment on above:Performed By: #### CBC ####[facility] Qwfmzdbuga[address] [place], [place] [address]Dr.Gema BeckPlatelet mean volume (Bld) [Entitic vol] 9.1 fLCritically low9.5-13.5The St. [facility]'S HospitalComment on above:Performed By: #### CBC ####[facility] [address]pxefzjccd[address] [place] [address]Dr.Gema BeckPLT342 103/frFhbghi386-772Puj St. Anthony'S HospitalComment on above:Performed By: #### CBC ####[facility] Prrdesvmlw79[address] [place] [address]Dr.Gema BeckRBC4.42 106/ulCritically low4.70-6.10The St. [facility]'S HospitalComment on above:Performed By: #### CBC ####[facility] Wsoiybirch56[address] [place] [address]DrMariah BeckWBC9.5 103/ul Normal4.0-11.0The St. [facility]'S HospitalComment on above:Performed By: #### CBC ####[facility] Axosojjyus47[address] [place] [address]DrSohail BeckPROF 14(COMP METB)on 13-25-4586Mxzyiqs [Mass/Vol]3.6 g/dLNormal 3.4-5.0The St. Anthony'S HospitalComment on above:Performed By: #### CMP #### [facility] [address] [place] [address] Dr. Gema BeckAlbumin/Globulin [Mass ratio]1.1 {ratio}NormalThe St. Anthony'S HospitalComment on above:Performed By: #### CMP #### [facility] [address] [place] [address] Dr. Gema Cohen [Catalytic activity/Vol]66 U/BBjpfqm78-502Vok St. Anthony'S HospitalComment on above:Performed By: #### CMP #### [facility] [address] [place] [address] Dr. Gema Wiggins [Catalytic activity/Vol]22 U/AVcgzkx02-83Rtj St. [facility]'S HospitalComment on above:Performed By: #### CMP #### [facility] [address] [place] [address] Dr. Yilan ChangAnion gap [Moles/Vol]13.2 mmol/LNormalOhiohealth Shelby Hospital Comment on above:Performed By: #### CMP #### [facility] [address] [place] [address] [address] Gema BeckAST [Catalytic activity/Vol]15 U/MLmewkt94-74Lnb St. [facility]'S HospitalComment on above:Performed By: #### CMP #### [facility] [address] [place] [address] Dr. Gema BeckBilirubin [Mass/Vol]0.3 mg/dLNormal0.2-1.0The [facility] Comment on above:Performed By: #### CMP #### [facility] [address] [place] [address] Dr. Gema BeckCalcium [Mass/Vol]8.7 mg/dLNormal8.5-10.1The [facility] Comment on above:Performed By: #### CMP #### [facility] [address] [place] [address] Dr. Gema BeckChloride [Moles/Vol]105 mmol/JVwojce07-727Ynn [facility] Comment on above:Performed By: #### CMP #### [facility] [address] [place] [address] Dr. Gema BeckCO2 [Moles/Vol]27.6 mmol/TAmndin37.0-32.0[facility] Comment on above:Performed By: #### CMP #### [facility] [address] [place] [address] Dr. Gema BeckCreatinine [Mass/Vol]0.83 mg/dLNormal0.70-1.30The St[facility]'S HospitalComment on above:Performed By: #### CMP #### [facility] [address] [place] [address] Dr. Gema QueenGFR-AF MALTESE>60Normal>=60The St. Anthony'S HospitalComment on above:Performed By: #### CMP #### [facility] [address] [place] [address] Dr. Gema QueenGFR-NON AF MALTESE>60Normal>=60The [facility]. [facility]'S HospitalComment on above:Performed By: #### CMP #### [facility] [address] [address] [address] Gema BeckGlobulin (S) [Mass/Vol]3.4 g/dLNormCleveland Clinic Fairview HospitalComment on above:Performed By: #### CMP #### [facility] [address] [address] [address] Gema BeckGlucose [Mass/Vol]97 mg/zTGdrvkb38-796GcdOhiohealth Shelby Hospital Comment on above:Performed By: #### CMP #### [facility] [address] [address] [address] Gema BeckPotassium [Moles/Vol]3.8 mmol/LNormal3.5-5.1[facility] Comment on above:Performed By: #### CMP #### [facility] [address] [address] [address] Gema BeckProtein [Mass/Vol]7.0 g/dLNormal6.4-8.2[facility] Comment on above:Performed By: #### CMP #### [facility] [address] [address] [address] Gema BeckSodium [Moles/Vol]142 mmol/LCibdzy056-464RsvOhiohealth Shelby Hospital Comment on above:Performed By: #### CMP #### [facility] [address] [address] [address] Gema BeckUrea nitrogen [Mass/Vol]17.0 mg/dLNormal7.0-18.0Ohio[facility] HospitalComment on above:Performed By: #### CMP #### [facility] [address] [address] [address] Gema BeckUrea nitrogen/Creatinine [Mass ratio]20.5 mg/mgNormCleveland Clinic Fairview HospitalComment on above:Performed By: #### CMP #### [facility] [address] [place] [address] Dr. Gema BeckCBC AUTO DIFFon [id number] #0.1 103/ulNormal0.0-0.1The [facility]. [facility]'S HospitalComment on above:Performed By: #### CBC ####[facility] Bkmjobnywa[address] [place], [place] [address]Dr.Gema ChangBasophils/100 WBC (Bld)1.4 %Normal0.2-2.0The [facility]'S HospitalComment on above:Performed By: #### CBC ####[facility] Hobqsiikjo[address] [place], [place] [address]Dr.Enedelialan ChangEO #0.1 103/ulNormal0.0-0.7The [facility]'S HospitalComment on above:Performed By: #### CBC ####[facility] Qgvkbjdmka197[address] [place], [place] [address]Dr.Gema ChangEosinophils/100 WBC (Bld)2.1 %Normal 0.9-7.0The [facility]'S HospitalComment on above:Performed By: #### CBC ####[facility] Wlbqarzzrf[address] [place], [place] [address]Dr.Gema Beck Erythrocyte distribution width (RBC) [Ratio]12.3 %Gpogcm69.0-15.0The [facility]'S HospitalComment on above:Performed By: #### CBC ####[facility] Lbrriirvxa4[address] [place], [place] [address]Dr.Gema ChangHematocrit (Bld) [Volume fraction]42.2 %Vvejvc77.0-54.0The [facility]'S HospitalComment on above:Performed By: #### CBC ####[facility] [address]hmfnbzneh4[address] [place], [place] [address]Dr.Gema ChangHemoglobin (Bld) [Mass/Vol]13.9 g/dL Critically low14.0-18.0The [facility]'S HospitalComment on above:Performed By: #### CBC ####[facility] Wthxoufkxn[address] [place], [place] [address]Dr. Gema ChangIG #0.07 10e3/ulCritically high0.00-0.03The [facility]'S HospitalComment on above:Performed By: #### CBC ####[facility] [address] [address]Dr.Gema BeckIG %1.1 %Critically high0.0-0.5The [facility]'S HospitalComment on above:Performed By: #### CBC ####[facility] Kuameidedh43[address] [place], [place] [address]Dr.Gema BeckLYMPH #1.9 103/ulNormal1.2-3.8The [facility]'S HospitalComment on above:Performed By: #### CBC ####[facility] Jdjfgepxou6[address] [place], [place] [address]Dr. Gema BeckLymphocytes/100 WBC (Bld)28.6 %Tjwjtf89.5-60.0The [facility] Comment on above:Performed By: #### CBC ####[facility] Mgllelznsg5[address] [place], [place] [address]Dr.Gema BeckMANUAL DIFF REQNONormalThe St. Anthony'S HospitalComment on above:Performed By: #### CBC ####[facility] Fzqnrvifrx[address] [place], [place] [address]Dr.Gema BeckMCH (RBC) [Entitic mass]32.0 vtXqzhor37.9-34.0The [facility]'S HospitalComment on above: Performed By: #### CBC ####[facility] Gcfstxryta6820[address] [place], [place] [address]Dr.Gema BeckMCHC (RBC) [Mass/Vol]32.9 g/dLNormal 29.9-35.2The [facility]'S HospitalComment on above:Performed By: #### CBC ####[facility] Lkmeueczjh3134[address] [place], [place] [address]Dr. Gema BeckMCV (RBC) [Entitic vol]97.0 fLCritically high80.0-94.0The [facility]'S HospitalComment on above:Performed By: #### CBC ####[facility] Qaufbtjqvk8555[address] [place], [place] [address]Dr.Gema BeckMONO #0.5 103/ulNormal0.3-0.8The [facility] HospitalComment on above:Performed By: #### CBC ####[facility] [address] [address]Dr. Gema BeckMonocytes/100 WBC (Bld)8.0 %Normal1.7-12.0The [facility] Comment on above:Performed By: #### CBC ####[facility] [address] [address]Dr.Gema BeckNEUT #3.9 103/ulNormal1.4-6.[address] [facility]S HospitalComment on above:Performed By: #### CBC ####[facility] Aahwhivkpi4488[address] [place], [place] [address]Dr.Gema Beck Neutrophils/100 WBC (Bld)58.8 %Epxaqd60.0-75.0The [facility]'S HospitalComment on above:Performed By: #### CBC ####[facility] Mfsjjmioku7788[address] [place], [place] [address]Dr.Gema BeckPlatelet mean volume (Bld) [Entitic vol] 9.6 fLNormal9.5-13.5The [facility]'S HospitalComment on above:Performed By: #### CBC ####[facility] Kmoekeqayl5[address] [place], [place] [address]Dr. Gema BeckPLT334 103/icTogien162-039Yyh St. [facility]'S HospitalComment on above: Performed By: #### CBC ####[facility] Ochjxqnjob136[address] [place], [place] [address]Dr.Gema BeckRBC4.35 106/ulCritically low4.70-6.10The [facility]'S HospitalComment on above:Performed By: #### CBC ####[facility] Nlfjzhsrpn2[address] [place], [place] [address]Dr.Gema BeckWBC6.7 103/ul Normal4.0-11.0The [facility]'S HospitalComment on above:Performed By: #### CBC ####[facility] Hopipyhdad[address] [place], [place] [address]Dr. Gema BeckGLYCOHEMOGLOBIN A1Con [id number] RECOMMENDATIONSEE BELOWNormalThe St. Anthony'S HospitalComment on above:Result Comment: ADA RECOMMENDED LIMIT 4.0 - 6.0 ADA THERAPEUTIC TARGET < 7.0 ACTION SUGGESTED > 7.0Performed By: #### A1C ####[facility] [address] [address]Dr. Gema BeckGlucose [Mass/Vol]120 mg/dLSumma Health Akron CampusComment on above:Performed By: #### A1C ####[facility] [address] [id number].Yilan BeckHbA1c (Bld) [Mass fraction]5.8 %Normal 4.5-6.2The [facility]'S HospitalComment on above:Performed By: #### A1C ####[facility] [address] [address]Dr.Yilan BeckLIPID PROFILEon 22-75-5807XYKB-HDL RATIO NORMSEE [facility] Comment on above:Result Comment: 3.3 - 4.4 LOW RISK 4.4 - 7.1 AVERAGE RISK 7.1 - 11.0 MODERATE RISK >11.0 HIGH RISKPerformed By: #### LIPID, TSH, CMP #### [facility] [address] [address] [address] Gema Oharaesterol [Mass/Vol]183 mg/dLNormal<=200[facility] Comment on above:Performed By: #### LIPID, TSH, CMP #### [facility] [address] [address] [address] Gema BeckCholesterol in HDL [Mass/Vol]44 mg/uDKagpmv17-41Ziq St. [facility]'S HospitalComment on above:Performed By: #### LIPID, TSH, CMP #### [facility] [address] [address] [address] Gema Oharaesterol in LDL [Mass/Vol]125.2 mg/dLLouis Stokes Cleveland [facility] on above:Performed By: #### LIPID, TSH, CMP #### [facility] [address] [address] [address] Gema Garnica.total/Cholesterol in HDL [Mass ratio]4.2 {ratio} NormalThe [facility]erton HospitalComment on above:Performed By: #### LIPID, TSH, CMP #### [facility] [address] [address] [address] Gema Tang NORMAL> or = 60 mg/dl - LOW CARDIOVASCULAR RISK <40 mg/dl - HIGH CARDIOVASCULAR RISKSumma Health Akron CampusComment on above:Performed By: #### LIPID, TSH, CMP #### [facility] [address] [address] [address] Gema BeckLDL CALC NORMALSEE BELOWSumma Health Akron CampusComment on above:Result Comment: <100 mg/dl OPTIMAL 100 - 129 mg/dl NEAR OR ABOVE OPTIMAL 130 - 159 mg/dl BORDERLINE HIGH 160 - 189 mg/dl HIGH >190 mg/dl VERY HIGH Performed By: #### LIPID, TSH, CMP #### [facility] [address] [address] [address] Gema BeckTriglyceride [Mass/Vol]69 mg/dLNormal<=150The [facility] Comment on above:Performed By: #### LIPID, TSH, CMP #### [facility] [address] [address] [address] Gema BeckVLDL CALC13.8 mg/dLNoPaulding County HospitalComeaton rapids medical center on above: Performed By: #### LIPID, TSH, CMP #### [facility] [address] [address] [address] Gema BeckPROF 14(COMP METB)on 85-42-5236Afccnof [Mass/Vol]3.6 g/dLNormal 3.4-5.0The [place] on above:Performed By: #### LIPID, TSH, CMP #### [facility] [address] [address] [address] Gema BeckAlbumin/Globulin [Mass ratio]1.1 {ratio}NormalThe St. [facility]'S HospitalComeaton rapids medical center on above:Performed By: #### LIPID, TSH, CMP #### [facility] [address] [address] [address] Gema Cohen [Catalytic activity/Vol]73 U/VIzaqxc65-195Rxw St. [facility]'S HospitalComment on above:Performed By: #### LIPID, TSH, CMP #### [facility] [address] [address] [address] Gema Wiggins [Catalytic activity/Vol]29 U/KQeyvrq37-47Krv St[facility]'S HospitalComment on above:Performed By: #### LIPID, TSH, CMP #### [facility] [address] [address] [address] Gema Choon gap [Moles/Vol]7.3 mmol/LNormalThe St. [facility]'S HospitalComment on above:Performed By: #### LIPID, TSH, CMP #### [facility] [address] [place] [address] Dr. Gema Castillo [Catalytic activity/Vol]18 U/PAzxtto93-76Uco St[facility]'S HospitalComment on above:Performed By: #### LIPID, TSH, CMP #### [facility] [address] [place] [address] Dr. Gema BeckBilirubin [Mass/Vol]0.4 mg/dLNormal0.2-1.0The [facility] Comment on above:Performed By: #### LIPID, TSH, CMP #### [facility] [address] [place] [address] Dr. Gema BeckCalcium [Mass/Vol]8.6 mg/dLNormal8.5-10.1The [facility] Comment on above:Performed By: #### LIPID, TSH, CMP #### [facility] [address] [place] [address] Dr. Gema BeckChloride [Moles/Vol]104 mmol/QKhcqnv73-425Hei [facility] Comment on above:Performed By: #### LIPID, TSH, CMP #### [facility] [address] [place] [address] Dr. Gema BeckCO2 [Moles/Vol]29.1 mmol/UDuuwoi95.0-32.0The [facility] Comment on above:Performed By: #### LIPID, TSH, CMP #### [facility] [address] [place] [address] Dr. Yilan ChangCreatinine [Mass/Vol]0.88 mg/dLNormal0.70-1.30The [facility]S HospitalComment on above:Performed By: #### LIPID, TSH, CMP #### [facility] [address] [address] [address] Gema QueenGFR-AF MALTESE>60Normal>=60The [facility]'S HospitalComment on above:Performed By: #### LIPID, TSH, CMP #### [facility] [address] [address] [address] Gema QueenGFR-NON AF MALTESE>60Normal>=60The [facility]S HospitalComment on above:Performed By: #### LIPID, TSH, CMP #### [facility] [address] [place] [address] Dr. Gema BeckGlobulin (S) [Mass/Vol]3.4 g/dLNormalThe St. [facility]'S HospitalComment on above:Performed By: #### LIPID, TSH, CMP #### [facility] [address] [place] [address] Dr. Gema BeckGlucose [Mass/Vol]99 mg/eGJpsxsu42-890VbwOhiohealth [facility] Hospital Comment on above:Performed By: #### LIPID, TSH, CMP #### [facility] [address] [place] [address] Dr. Gema BeckPotassium [Moles/Vol]4.4 mmol/LNormal3.5-5.1[facility] Comment on above:Performed By: #### LIPID, TSH, CMP #### [facility] [address] [place] [address] Dr. Gema BeckProtein [Mass/Vol]7.0 g/dLNormal6.4-8.2[facility] Comment on above:Performed By: #### LIPID, TSH, CMP #### [facility] [address] [place] [address] Dr. Gema BeckSodium [Moles/Vol]136 mmol/EZnrfty985-743UylOhiohealth Shelby Hospital Comment on above:Performed By: #### LIPID, TSH, CMP #### [facility] [address] [address] [address] Gema Sutton nitrogen [Mass/Vol]17.0 mg/dLNormal7.0-18.0The [facility]S HospitalComment on above:Performed By: #### LIPID, TSH, CMP #### [facility] [address] [address] [address] Gema Sutton nitrogen/Creatinine [Mass ratio]19.3 mg/mgNormalThe St. [facility]'S HospitalComment on above:Performed By: #### LIPID, TSH, CMP #### [facility] [address] [address] [address] Gema Ozuna 59-04-0565KQS1.148 uIU/mLNormal0.358-3.740The [facility] HospitalComeaton rapids medical center on above:Performed By: #### LIPID, TSH, CMP ####[facility] [address] [address]Dr. Gema Whittaker RANDOM W/MICROSCOPICon 20-90-4820ORQCOMURZIMT SEENNormalNONE SEENOhiohealth Shelby HospitalComment on above:Performed By: #### UAMIC #### [facility] [address] [address] [address] Gema Sutherland Ql (U)SMALLAbnormalNEGATIVEOhiohealth Shelby HospitalComeaton rapids medical center on above:Performed By: #### UAMIC #### [facility] [address] [address] [address] Gema BeckCASTANGELICAE SEENNormalNONE SEENOhiohealth Shelby HospitalComeaton rapids medical center on above:Performed By: #### UAMIC #### [facility] [address] [address] [address] Gema Mejia (U)CLEARNormalCLEAROhiohealth Shelby HospitalComment on above: Performed By: #### UAMIC #### [facility] [address] [address] [address] Gema Quintero ()LT. YELLOWNormalYELLOWOhiohealth Shelby HospitalComment on above:Performed By: #### UAMIC #### [facility] [address] [address] [address] Gema BeckCrystals LM Nom (Urine sed)NONE SEENNormalNONE SEENOhiohealth Shelby HospitalComment on above:Performed By: #### UAMIC #### [facility] [address] [place] [address] Dr. Ribeiro ChangEpithelial cells LM Ql (Urine sed)RARENormalNONE SEEN /RAREOhiohealth Shelby HospitalComment on above:Performed By: #### UAMIC #### [facility] [address] [place] [address] Dr. Gema BeckGlucose Ql (U)NegativeNormalNEGATIVEOhiohealth Shelby HospitalComment on above:Performed By: #### UAMIC #### [facility] [address] [place] [address] Dr. Gema BeckHemoglobin Ql (U)NegativeNormalNEGATIVETrihealth Bet[facility] on above:Performed By: #### UAMIC #### [facility] [address] [place] [address] Dr. Gema BeckKetones Ql (U)NegativeNormalNEGATIVEOhiohealth Shelby HospitalComment on above:Performed By: #### UAMIC #### [facility] [address] [place] [address] Dr. Gema BeckLEUKOCYTESNegativeNormalNEGATIVEOhiohealth Shelby HospitalComment on above:Performed By: #### UAMIC #### [facility] [address] [place] [address] Dr. Gema BeckMUCOUSNONE SEENNormalNONE SEENOhiohealth Shelby HospitalComment on above:Performed By: #### UAMIC #### [facility] [address] [place] [address] Dr. Gema BeckNitrite Ql (U)NegativeNormalNEGATIVEOhiohealth Shelby HospitalComment on above:Performed By: #### UAMIC #### [facility] [address] [place] [address] Dr. Gema BeckpH (U)5.5 [pH]Normal5-9[facility] HospitalComment on above: Performed By: #### UAMIC #### [facility] [address] [address] [address] Gema BeckRBCNONE SEENAbnormal0-2The [facility] Centerment on above: Performed By: #### UAMIC #### [facility] [address] [address] [address] Gema BeckSPEC GRAVITY1.559Iwcdca3.005-<=1.025The St. [facility]'S HospitalComment on above:Performed By: #### UAMIC #### [facility] [address] [address] [address] Gema Whittaker PROTEINNegativeNormalNEGATIVE/ TRACEOhiohealth Shelby Hospital Comment on above:Performed By: #### UAMIC #### [facility] [address] [place] [address] Dr. Gema Pritchettbilinogen Qn (U)0.2 {Merari'U}/dLNormal0.2 - 1.0The [facility]'S HospitalComment on above:Performed By: #### UAMIC #### [facility] [address] [place] [address] Dr. Gema BeckWBCNONE SEENNormalNONE SEENOhiohealth Shelby HospitalComment on above: Performed By: #### UAMIC #### [facility] [address] [place] [address] Dr. Gema TavarezOLASEon 33-47-5253Fobxflip8.4 U/LNormal3.3-10.3The [facility]'S HospitalComment on above:Performed By: #### ALDOLAS ####[facility] [address] [address]Dr. Gema MobleyKocipriano 68-88-6031TB [Catalytic activity/Vol]205 U/EWcyegz41-340IplOhiohealth Shelby Hospital Comment on above:Performed By: #### LDH, CK, EVI #### [facility] [address] [address] [address] Gema AliceaHocipriano 97-88-7190BKH930 U/QXcqdrv66-469GjtOhiohealth Shelby Hospital Comment on above:Performed By: #### LDH, CK, EVI #### [facility] [address] [address] [address] Gema BeckMYOGLOBINon 14-43-5622DKM03 ng/vVFclryd17-15Qjx [facility] Comment on above:Performed By: #### LDH, CK, EVI #### [facility] [address] [address] [address] Gema Godfrey AUTO DIFFon [id number] #0.1 103/ulNormal0.0-0.1The [facility]S HospitalComment on above:Performed By: #### CBC ####[facility] [address]vgbxysbcd[address] [place], [place] [address]Dr.Gema BeckBasophils/100 WBC (Bld)1.1 %Normal0.2-2.0The [facility]'S HospitalComment on above:Performed By: #### CBC ####[facility] [address]lejencz[address] [place], [place] [address]DrMariah ChangEO #0.1 103/ulNormal0.0-0.7The [facility]S HospitalComment on above:Performed By: #### CBC ####[facility] [address]zqzfqk[address] [place], [place] [address]DrMariah Queenosinophils/100 WBC (Bld)1.5 %Normal 0.9-7.0The [facility]S HospitalComment on above:Performed By: #### CBC ####[facility] Mifwveilnx25[address] [place], [place] [address]DrMariah Beck Erythrocyte distribution width (RBC) [Ratio]12.0 %Wvxmen85.0-15.0The [facility]'S HospitalComment on above:Performed By: #### CBC ####[facility] [address]jgyfpzy[address] [place], [place] [address]DrMariah BeckHematocrit (Bld) [Volume fraction]42.9 %Wmiyve19.0-54.0The [facility]S HospitalComment on above:Performed By: #### CBC ####[facility] Biyonouqpr[address] [place], [place] [address]Dr.Gema BeckHemoglobin (Bld) [Mass/Vol]14.0 g/dL Tnjasj63.0-18.0The [facility]S HospitalComment on above:Performed By: #### CBC ####[facility] Xofwoqmynx9[address] [place], [place] [address]Dr. Gema BeckIG #0.04 10e3/ulCritically high0.00-0.03The [facility]S HospitalComment on above:Performed By: #### CBC ####[facility] Vwfcinwexp[address] [place], [place] [address]Dr.Gema BeckIG %0.6 %Critically high0.0-0.5The [facility]'S HospitalComment on above:Performed By: #### CBC ####[facility] Xfwteyocbb[address] [place], [place] [address]Dr.Gema BeckLYMPH #2.1 103/ulNormal1.2-3.8The [facility]S HospitalComment on above:Performed By: #### CBC ####[facility] Dcvjwxeaop77[address] [place], [place] [address]Dr. Gema BcekLymphocytes/100 WBC (Bld)28.6 %Fuvnem33.5-60.0The [facility] Comment on above:Performed By: #### CBC ####[facility] Xpaxow[address]ln[address] [place], [place] [address]Dr.Gema BeckMANUAL DIFF REQNONormalThe St. [facility]'S HospitalComment on above:Performed By: #### CBC ####[facility] Yvhmqwpdma939[address] [place], [place] [address]Dr.Gema BeckGEN[facility] (RBC) [Entitic mass]31.9 qiAprvkf11.9-34.0The [facility]S HospitalComment on above: Performed By: #### CBC ####[facility] Ywerscnxrl8976[address] [place], [place] [address]Dr.Gema KiranMC (RBC) [Mass/Vol]32.6 g/dLNormal 29.9-35.2The [facility]S HospitalComment on above:Performed By: #### CBC ####[facility] Oghrsvanoh[address] [place], [place] [address]Dr. Gema BeckMCV (RBC) [Entitic vol]97.7 fLCritically high80.0-94.0The [facility]S HospitalComment on above:Performed By: #### CBC ####[facility] [address] [address]Dr.Gema BeckMONO #0.6 103/ulNormal0.3-0.8The [facility] HospitalComment on above:Performed By: #### CBC ####[facility] [address]rit[address]xsrp[address] [address]Dr. Gema BeckMonocytes/100 WBC (Bld)7.8 %Normal1.7-12.0The [facility] Comment on above:Performed By: #### CBC ####[facility] Mhsasorazs[address] [place], [place] [address]Dr.Gema BeckNEUT #4.4 103/ulNormal1.4-6.[address] [facility]S HospitalComment on above:Performed By: #### CBC ####[facility] Fqyceytkuq86[address] [place], [place] [address]Dr.Gema Beck Neutrophils/100 WBC (Bld)60.4 %Bmapmb98.0-75.0The [facility]S HospitalComment on above:Performed By: #### CBC ####[facility] Ijaeqpqlsr[address] [place], [place] [address]Dr.Gema BeckPlatelet mean volume (Bld) [Entitic vol] 9.2 fLCritically low9.5-13.5The [facility]S HospitalComment on above:Performed By: #### CBC ####[facility] [address] [address]Dr.Gema EarkwAPG877 103/soYewvaa952-748Lcj St[facility]S HospitalComment on above:Performed By: #### CBC ####[facility] Pxuxamjnse75[address] [place], [place] [address]Dr.Gema BeckRBC4.39 106/ulCritically low4.70-6.10The [facility] HospitalComment on above:Performed By: #### CBC ####[facility] [address]yh[address] [address]Dr.Yilan BeckWBC7.2 103/ul Normal4.0-11.0The [facility]S HospitalComment on above:Performed By: #### CBC ####[facility] [address]pjuant[address] [address]Dr. Gema BeckPROF 14(COMP METB)on 55-17-0642Eypubhd [Mass/Vol]3.7 g/dLNormal 3.4-5.0The [facility]S HospitalComment on above:Performed By: #### CMP #### [facility] [address] [address] [address] Gema BeckAlbumin/Globulin [Mass ratio]1.1 {ratio}NormalThe St. [facility]'S HospitalComment on above:Performed By: #### CMP #### [facility] [address] [place] [address] Dr. Gema WildP [Catalytic activity/Vol]67 U/TCcmdjw68-563Ewb [facility]S HospitalComment on above:Performed By: #### CMP #### [facility] [address] [address] [address] Gema Wiggins [Catalytic activity/Vol]28 U/ROvpute94-53Ujy [facility]S HospitalComment on above:Performed By: #### CMP #### [facility] [address] [address] [address] Gema Thayer gap [Moles/Vol]10.3 mmol/LNormalThe [facility] Comment on above:Performed By: #### CMP #### [facility] [address] [address] [address] Gema BeckAST [Catalytic activity/Vol]19 U/BXejysw82-88Exn St[facility]S HospitalComment on above:Performed By: #### CMP #### [facility] [address] [address] [address] Gema BeckBilirubin [Mass/Vol]0.5 mg/dLNormal0.2-1.0The [facility] Comment on above:Performed By: #### CMP #### [facility] [address] [address] [address] Gema BeckCalcium [Mass/Vol]8.8 mg/dLNormal8.5-10.1The [facility] Comment on above:Performed By: #### CMP #### [facility] [address] [address] [address] Gema BeckChloride [Moles/Vol]104 mmol/ZLihhli86-860Uoq [facility] Comment on above:Performed By: #### CMP #### [facility] [address] [place] [address] Dr. Gema BeckCO2 [Moles/Vol]30.0 mmol/EZwgkud40.0-32.0The [facility] Comment on above:Performed By: #### CMP #### [facility] [address] [place] [address] Dr. Gema BeckCreatinine [Mass/Vol]0.86 mg/dLNormal0.70-1.30The [facility] HospitalComment on above:Performed By: #### CMP #### [facility] [address] [place] [address] Dr. Ribeiro ChangEGFR-AF MALTESE>60Normal>=60The [facility]'S HospitalComment on above:Performed By: #### CMP #### [facility] [address] [place] [address] Dr. Gema QueenGFR-NON AF MALTESE>60Normal>=60The [facility]'S HospitalComment on above:Performed By: #### CMP #### [facility] [address] [place] [address] Dr. Gema BeckGlobulin (S) [Mass/Vol]3.5 g/dLNormalThe St. Anthony'S HospitalComment on above:Performed By: #### CMP #### [facility] [address] [place] [address] Dr. Gema BeckGlucose [Mass/Vol]103 mg/tDGiecoz47-235Zme [facility] Comment on above:Performed By: #### CMP #### [facility] [address] [place] [address] Dr. Gema BeckPotassium [Moles/Vol]4.3 mmol/LNormal3.5-5.1[facility] Comment on above:Performed By: #### CMP #### [facility] [address] [address] [address] Gema BeckProtein [Mass/Vol]7.2 g/dLNormal6.4-8.2[facility] Comment on above:Performed By: #### CMP #### [facility] [address] [address] [address] Gema BeckSodium [Moles/Vol]140 mmol/OLdorci576-461Ugp [facility] Comment on above:Performed By: #### CMP #### [facility] [address] [address] [address] Gema BeckUrea nitrogen [Mass/Vol]18.0 mg/dLNormal7.0-18.0[facility] HospitalComment on above:Performed By: #### CMP #### [facility] [address] [address] [address] Gema Sutton nitrogen/Creatinine [Mass ratio]20.9 mg/mgNormalThe St. Anthony'S HospitalComment on above:Performed By: #### CMP #### [facility] [address] [address] [address] Gema BeckXR CHEST (2 VW)on 30-24-2232WD CHEST (2 VW)EXAMINATION: TWO XRAY VIEWS OF THE CHEST 02/14/2020 2:30 pm COMPARISON: None. HISTORY: ORDERING SYSTEM PROVIDED HISTORY: insure deep inspiration FINDINGS: The lungs are without acute focal process. No effusion or pneumothorax. The cardiomediastinal silhouette is normal. The osseous structures are intact without acute process. IMPRESSION: Negative chest. Interpreted by: Terence Leroy MD Signed by: Terence Leroy MD 02/14/20 Final resultNormalMerManchester Memorial HospitalXR CHEST STANDARD (2 VW)on 02-14-2020 Negative chest.[facility], [place]EX[place] TWO XRAY VIEWS OF THE CHEST 02/14/2020 2:30 pm COMPARISON: None. HISTORY: ORDERING SYSTEM PROVIDED HISTORY: insure deep inspiration FINDINGS: The lungs are without acute focal process. No effusion or pneumothorax. The cardiomediastinal silhouette is normal. The osseous structures are intact without acute process.[facility], Ronni Lee Incoming Radiant Results From [employer] - 02/14/2020 2:38 PM EDT EXAMINATION: TWO XRAY VIEWS OF THE CHEST 02/14/2020 2:30 pm COMPARISON: None. HISTORY: ORDERING SYSTEM PROVIDED HISTORY: insure deep inspiration FINDINGS: The lungs are without acute focal process. No effusion or pneumothorax. The cardiomediastinal silhouette is normal. The osseous structures are intact without acute process. IMPRESSION: Negative chest. [facility], PERICO Vital Signs Date TimeVital SignValuePerforming XrgkwpmbcJidjuztx11-47-9614 15:14-0400Body ifxqhg514.8 cmLisa Aichholz [employer] Work Phone: [phone]10-16-2025 15:14-0400 Body mass index (BMI) [Ratio]40.6 kg/m2Lisa Aichholz [employer] Work Phone: [phone]10-16-2025 15:14-0400 Body fpvzccedmww74.8 [degF]Shavonne Aichholz [employer] Work Phone: [phone]10-16-2025 15:14-0400 Body evjdko908.48 kgLisa Aichholz [employer] Work Phone: [phone] [place], [place] 5494110-16-2025 15:14-0400 Diastolic blood rnfjnetz06 mm[Hg]Shavonne Aichholz [employer] Work Phone: [phone] [place], [place] 6840110-16-2025 15:14-0400 Heart rate77 /minLisa Aichholz [employer] Work Phone: [phone] [place], [place] 6840110-16-2025 15:14-0400 Respiratory rate20 /minLisa Aichholz [employer] Work Phone: [phone] [place], [place] 684[address]10-16-2025 15:14-0400 SaO2% (BldA) [Mass fraction]97 %Shavonne Chowdary [employer] Work Phone: [facility]10-16-2025 15:14-0400 Systolic blood amjnnhfo019 mm[Hg]Shavonne Chowdary [employer] Work Phone: [facility]07-29-2025 11:31-0400 Body mass index (BMI) [Ratio]41.15 kg/m2Shavonne Chowdary [employer] Work Phone: [facility] CenterPletuzrghk80-28-5905 11:31-0400Body temperature 98.49 [degF]Shavonne Mckeonmaame [employer]ITY Work Phone: [facility] CenterGxszfzvvdo95-50-3781 11:31-0400Body earlvh220.09 kgShavonne Chowdary [employer] Work Phone: [facility] CenterWtcwrqiipg24-98-0831 11:31-0400Diastolic blood ednfnqgy50 mm[Hg]Shavonne Chowdary [employer] Work Phone: [facility] CenterOmypdazcmc27-54-3277 11:31-0400Heart rate81 /min Shavonne Chowdary [employer] Work Phone: [facility] CenterAdqxglifsd65-94-5159 11:31-0400Respiratory rate18 /minShavonne Chowdary [employer]IVE [employer]ITY Work Phone: [facility] CenterLjamoqfxrd97-25-0389 11:31-9611ZvD4% (BldA) [Mass fraction]96 %Shavonne Chowdary [employer]ITY Work Phone: [facility] CenterWefrtfeyij17-04-8319 11:31-0400Systolic blood wijpzqhf819 mm[Hg]Shavonne Chowdary [employer] Work Phone: [facility] CenterIcvkmxrorg50-56-9962 13:02-0400Body mass index (BMI) [Ratio]42.24 kg/m2Shavonne Mckeonz [employer]ITY Work Phone: [facility] CenterIfavcqybnq78-23-2243 13:02-0400Body temperature 98.4 [degF]Shavonne Chowdary [employer] Work Phone: [facility] CenterBxdtooxrkc12-83-7345 13:02-0400Body ktbkou369.54 kgShavonne Chowdary [employer]ITY Work Phone: [facility] CenterEfvtzinkdp81-48-0414 13:02-0400Diastolic blood nffqidzh45 mm[Hg]Shavonne Chowdary [employer] Work Phone: [facility] CenterLokknqadns02-36-6175 13:02-0400Heart rate76 /min Shavonne Mckeonz [employer] Work Phone: [address] [address]Kbgagollmc05-62-2480 13:02-0400Respiratory rate18 /minShavonne Wongmartinz [employer]ITY Work Phone: [address] [address]Wojnsdjciu93-23-1422 13:02-5546OuX2% (BldA) [Mass fraction]97 %Shavonne Mckeonz [employer] Work Phone: [facility] CenterNpnnsmxska81-46-6191 13:02-0400Systolic blood nrwyozru056 mm[Hg]Shavonne Mckeonz [employer] Work Phone: [facility] CenterWyrjunnaoq97-77-4645 13:11-0400Diastolic blood jnaegimf09 mm[Hg]Satya Iqbal PA Work Phone: [facility]03-25-2025 13:11-0400Heart rate 78 /minMatthew Nicci PA Work Phone: [facility]03-25-2025 13:11-0400 Respiratory rate18 /minMatthew Nienberg PA Work Phone: [facility]03-25-2025 13:11-0400Systolic blood qurtzafx840 mm[Hg]Satya Iqbal PA Work Phone: [facility]03-10-2025 13:43-0400Body mass index (BMI) [Ratio]42.87 kg/m2Shavonne Dayannamariimartinz [employer] Work Phone: [facility] CenterYbxbwbhfsh57-54-6643 13:43-0400Body temperature 98.4 [degF]Shavonne Chowdary [employer] Work Phone: [address] [address]Mzmujjxurv75-05-9078 13:43-0400Body fyxixd101.53 kgShavonne Chowdary [employer]ITY Work Phone: [facility] CenterZmjqrrsbgf60-28-3704 13:43-0400Diastolic blood ovgvxfae74 mm[Hg]Shavonne Chowdary [employer]ITY Work Phone: [facility] CenterGldfxwjjkg00-25-8876 13:43-0400Heart rate79 /min Shavonne Chowdary [employer] Work Phone: [address] [address]Uwteulpils70-40-4931 13:43-0400Respiratory rate19 /minShavonne Chowdary [employer] Work Phone: [facility] CenterSdmhpdxzsb21-29-1571 13:43-8209HbV2% (BldA) [Mass fraction]92 %Shavonne Chowdary [employer] Work Phone: [address] [address]Ixfqlhxryd87-11-4100 13:43-0400Systolic blood eojbxmnr418 mm[Hg]Shavonne Chowdary [employer] Work Phone: [facility] CenterJsjxpnufta21-38-4368 10:20-0500Blood Pressure LocationAurora Orzech [facility]02-17-2025 10:20-0500Diastolic blood ohsbeeid68 mm[Hg]Wendi Orzech [facility]02-17-2025 10:20-0500Heart rate80 /minAurora Orzech [facility]02-17-2025 10:20-0500Respiratory rate16 /minAurora Orzech [facility] [place] [address]-17-2025 10:20-0500Systolic blood amvykvgs556 mm[Hg]Wendi Watts [facility]02-11-2025 11:18-0500Body .8 cmMatthew Nicci PA Work Phone: [facility]-11-2025 11:18-0500Body mass index (BMI) [Ratio]45.2 kg/p7Kbhdvof Nienberg PA Work Phone: [facility]02-11-2025 11:18-0500Body .88 kgMatthew Nienberg PA Work Phone: [facility] Iiptkp66-62-0663 11:18-0500Diastolic blood uwpyyxkw96 mm[Hg]Satya Iqbal PA Work Phone: [facility] CenterStudio Whdcvt62-07-3942 11:18-0500Heart rate 80 /minMatthew Nienberg PA Work Phone: [facility]02-11-2025 11:18-0500 Respiratory rate18 /minMatthew Nienberg PA Work Phone: [facility] HospitaliClinical02-11-2025 11:18-5070DqO1% (BldA) [Mass fraction]95 %Satya Iqbal PA Work Phone: [facility] Hdsvcd83-66-2555 11:18-0500Systolic blood xekpwthd101 mm[Hg]Satya Iqbal PA Work Phone: [facility]02-10-2025 15:39-0500Body mass index (BMI) [Ratio]45.2 kg/m2Shavonne Chowdary [employer] Work Phone: [facility] CenterPzpsgzcsle95-23-8685 15:39-0500Body temperature 99.39 [degF]Shavonne Chowdary [employer] Work Phone: noC[facility] HospitalVczvyumapy42-41-9279 15:39-0500Body .88 kgLisa Aichholz [employer]IVE [employer]ITY Work Phone: [facility] CenterXpehgllbhz12-73-2481 15:39-0500Diastolic blood cdixouph81 mm[Hg]Shavonne Dayannahholz [employer]IVE [employer]ITY Work Phone: [facility] CenterPubiffxagq43-87-3607 15:39-0500Heart rate85 /min Shavonne Aichholz [employer] Work Phone: [facility] CenterLwetogyidq19-19-8033 15:39-0500Respiratory rate20 /minLisa Aichholz [employer]IVE [employer]ITY Work Phone: [facility] CenterUhfgevozlv61-24-8434 15:39-0822IdR9% (BldA) [Mass fraction]96 %Shavonne Dayannahholz [employer]ITY Work Phone: [facility] CenterJpsfpcuocz47-12-2967 15:39-0500Systolic blood qcctdxwa345 mm[Hg]Shavonne Dayannahholz [employer]ITY Work Phone: [facility] CenterSwxomijahi80-22-3929 15:33-0500Body mass index (BMI) [Ratio]44.19 kg/m2Lisa Dayannahholz [employer] Work Phone: [facility] CenterKkggilyuij16-84-4686 15:33-0500Body temperature 98.71 [degF]Shavonne Dayannahholz [employer] Work Phone: [facility] CenterWskvtvzdek33-74-8924 15:33-0500Body kchtiz609.71 kgLisa Dayannahholz [employer]IVE [employer]URITY Work Phone: [facility] CenterVxyptilqre52-90-4891 15:33-0500Diastolic blood vvtggcyc16 mm[Hg]Shavonne Aichholz [employer]ITY Work Phone: [facility] CenterTaeoygsosi98-11-0866 15:33-0500Heart rate93 /min Shavonne Aichholz [employer] Work Phone: [facility] CenterTmzzvftzmm44-02-9859 15:33-0500Respiratory rate20 /minLisa Aichholz [employer]ITY Work Phone: [facility] CenterSwyssipxrf11-02-7248 15:33-9117UoG8% (BldA) [Mass fraction]96 %Shavonne Chowdary [employer]ITY Work Phone: [facility] CenterMgbusqibxs68-31-0647 15:33-0500Systolic blood pagffimv862 mm[Hg]Shavonne Mikez [employer]IVE [employer]URITY Work Phone: [facility] CenterXylzehpbzo52-48-8607 10:40-0500Diastolic blood icnikbay34 mm[Hg]Shavonne Mckeonz [employer] Work Phone: [phone] [place], [place] [address]Kcyvgsxznk41-24-1422 10:40-0500Heart rate62 /min Shavonne Mikez [employer] Work Phone: [facility] CenterQlbakkojag50-03-4848 10:40-0500Systolic blood tsnecafv235 mm[Hg]Shavonne Mikez [employer] Work Phone: [phone] [place], [place] [address]Htvnglcrrv84-13-9616 10:03-0500Body mass index (BMI) [Ratio]43.19 kg/m2Shavonne Mckeonz [employer] Work Phone: [facility] CenterCqiklzpcvu72-37-6412 10:03-0500Body temperature 98.2 [degF]Shavonne Mckeonz [employer] Work Phone: [facility] CenterDvmavklbcf07-53-9114 10:03-0500Body dqemdm614.53 kgLisa Wongholz [employer]ITY Work Phone: [facility] CenterMcgnenplng11-81-9604 10:03-0500Respiratory rate20 /minLisa Marvinholz [employer]IVE [employer]ITY Work Phone: [phone] [place], [place] [address]Ylprpvhgdm22-42-5004 10:03-8285CcM8% (BldA) [Mass fraction]95 %Shavonne Marvinholz [employer]IVE SEC[employer]ITY Work Phone: [facility] CenterYjbmxslgxm41-69-7666 14:28-0500Body .8 Fabi Alanhholz [employer]IVE [employer]ITY Work Phone: [facility] CenterHzkptfzrqb84-58-2839 14:28-0500Body mass index (BMI) [Ratio]44.25 kg/m2Lisa Marvinholz [employer]ITY Work Phone: [facility] CenterXulfcibzil56-27-7926 14:28-0500Body temperature 98.8 [degF]Shavonne Chowdary [employer] Work Phone: [facility] CenterPgmjntlsug95-86-3906 14:28-0500Body riqzwy974.89 kgShavonne Chowdary [employer]IVE [employer]ITY Work Phone: [facility] CenterZegbrmcczz58-19-1056 14:28-0500Diastolic blood malrsvrn01 mm[Hg]Shavonne Chowdary [employer] Work Phone: [facility] CenterSayoskiuoo65-71-5028 14:28-0500Heart rate84 /min Shavonne Chowdary [employer] Work Phone: [facility] CenterIkttnypzvp52-01-7378 14:28-0500Respiratory rate22 /minShavonne Chowdary [employer]IVE [employer]ITY Work Phone: [facility] CenterSxzdnyloej67-13-2533 14:28-7771TwK1% (BldA) [Mass fraction]96 %Shavonne Chowdary [employer]ITY Work Phone: [facility] CenterIiurlmqkch55-56-7423 14:28-0500Systolic blood spqcycil433 mm[Hg]Shavonne Chowdary [employer] Work Phone: [facility] CenterKolgbxiqcu59-96-5477 12:04-0500Blood Pressure LocationAurora Orzech [facility]11-05-2024 12:04-0500Diastolic blood inzbqlot26 mm[Hg]Wendi Orzech [facility]11-05-2024 12:04-0500Heart rate73 /minAurora Orzech [facility]11-05-2024 12:04-0500Systolic blood afcnpkrv411 mm[Hg]Wendi Orzech [facility]11-05-2024 09:31-0500Body .8 Fabi Wongkia [employer] Work Phone: [facility] CenterGgfzktpqjb07-39-7979 09:31-0500Body mass index (BMI) [Ratio]44.11 kg/m2Shavonne Wongkia [employer] Work Phone: [facility] CenterMsaqlbtmrh58-01-2573 09:31-0500Body temperature 98.1 [degF]Shavonne Wongkia [employer] Work Phone: [phone] [place], [place] [address]Ewjypqkord76-78-3906 09:31-0500Body bncosp627.44 kgShavonne Dayannamariikia [employer] Work Phone: [place] [address]Nbmtoufynq65-73-3358 09:31-0500Diastolic blood muamcvlf90 mm[Hg]Shavonne Dayannamariikia [employer] Work Phone: [place] [address]Dgqsbrppmy32-91-8885 09:31-0500Heart rate64 /min Shavonne Wongkia [employer] Work Phone: [place] [address]Gocexrcqao88-30-8618 09:31-0500Respiratory rate19 /minLisa Wongkia [employer]IVE [employer]ITY Work Phone: [place] [address]Wblxbsyopo77-48-3079 09:31-4759HfS2% (BldA) [Mass fraction]97 %Shavonne Wongkia [employer] Work Phone: [place] [address]Iohqnexnwc41-67-1732 09:31-0500Systolic blood iqedddik197 mm[Hg]Shavonne Dayannamariikia [employer] Work Phone: [phone] [place], [place] [address]Gbcrofqmnr85-30-8872 09:29-0400Blood Pressure LocationAusue Watts [facility]07-02-2024 09:29-0400Diastolic blood lsywsrig56 mm[Hg]Wendi Watts [facility]07-02-2024 09:29-0400Heart bssk572 /minAurora Orzech [facility]07-02-2024 09:29-0400Respiratory rate16 /minAurora Orzech [facility]07-02-2024 09:29-0400Systolic blood edrnjzrr155 mm[Hg]Wendi Orzech [facility] [place] [address]-15-2024 13:49-0400Blood Pressure LocationPatrick HERRING [facility] [place] [address]-15-2024 13:49-0400Diastolic blood hdhrobzo95 mm[Hg]Javierje HERRING [facility]04-15-2024 13:49-0400Heart rate87 /minPatrick HERRING [facility] [place] [address]-15-2024 13:49-0400Respiratory rate16 /minPatrick HERRING [facility] [place] [address]-15-2024 13:49-0400Systolic blood zpxnvinq058 mm[Hg]Javier HERRING [facility]02-08-2024 13:07-0500Body .8 Fabi Chowdary [employer] Work Phone: [facility] CenterPmjizlngnm12-54-6348 13:07-0500Body mass index (BMI) [Ratio]45.31 kg/m2Shavonne Chowdary [employer] Work Phone: [facility] CenterAddcrfsdsi57-97-9957 13:07-0500Body temperature 98.2 [degF]Shavonne Chowdary [employer] Work Phone: [facility] CenterUusbkfwrpp32-07-3092 13:07-0500Body rgniie182.25 kgShavonne Chowdary [employer] EX[employer]IVE [employer]ITY Work Phone: [facility] CenterWeoibjgtou53-79-6028 13:07-0500Diastolic blood wgziwtsj97 mm[Hg]Shavonne Chowdary [employer] EX[employer]IVE [employer]ITY Work Phone: [facility] CenterAgceijggbf78-12-3824 13:07-0500Heart rate91 /min Shavonneangel Chowdary [employer] EX[employer]IVE [employer]ITY Work Phone: [facility] CenterPdrpyaqugn04-04-6140 13:07-0500Respiratory rate19 /minShavonne Chowdary [employer]IVE [employer] Work Phone: [facility] CenterTpubdhoywy59-58-0953 13:07-9289FkD9% (BldA) [Mass fraction]98 %Shavonne Chowdary [employer] EX[employer]IVE [employer]ITY Work Phone: [facility] CenterMvrkprvrvg75-70-5912 13:07-0500Systolic blood hjpciikw811 mm[Hg]Shavonne Chowdary [employer] EX[employer]IVE [employer]ITY Work Phone: [facility] CenterRwptekmwyh44-93-1898 11:36-0400Blood Pressure LocationPatrick HERRING [facility]08-07-2023 11:36-0400Diastolic blood syfjoxzz65 mm[Hg]Jaiver HERRING [facility]08-07-2023 11:36-0400Heart rate84 /minPatrick HERRING [facility]08-07-2023 11:36-0400Respiratory rate16 /minPatrick HERRING [facility]08-07-2023 11:36-0400Systolic blood zsolzovb850 mm[Hg]Javier HERRING [facility]05-15-2023 11:30-0400Body xyioof919.8 Colin Staples Other [employer] Other 05-15-2023 11:30-0400Body mass index (BMI) [Ratio] 45.59 kg/c4Pvhlhokesha Staples Other [facility] Other 05-15-2023 11:30-0400Body qeptqe016.15 kgCarrie Staples Other [facility] Other 05-15-2023 11:30-0400Diastolic blood agszrlda55 mm[Hg] Carrie Inmanmond Other [facility] Other 05-15-2023 11:30-0400Respiratory rate18 /minCarrie Staples Other [facility] Other 05-15-2023 11:30-1273HvM5% (BldA) [Mass fraction]95 % Carrie Staples Other [facility] Other 05-15-2023 11:30-0400Systolic blood egaiyhua411 mm[Hg] Carrie Bel Other [facility] Other 06-25-2020 14:16-0400BP Wvnwmlpkk03 mm[Hg]Joshua [facility], CI53-56-4334 14:16-0400BP Klqxatpc914 mm[Hg]Joshua [facility], XI66-65-1088 14:16-0400Pulse (Heart Rate)87 /Fang [facility], EU24-21-7149 14:16-0400Pulse Sxqneiis93 %Joshua [facility], VS39-76-6263 13:29-0400Body Pmakcpefezc78.39 [degF]Joshua [facility], YW61-55-3316 13:29-0400Respiratory Rate16 /minEjay [facility], [place] Encounters Encounter DateEncounter TypeCare ProviderFacilityStart: 06-06-2025 End: 67-11-7251joveotarjpKaod J Aichholz NP-C Work Phone: [facility] Work Phone: Start: 06-06-2025 End: 03-20-8508Xuwnjid encounter procedureShavonne GONZALEZC-[facility] [place] Work Phone: Start: 05-30-2025 End: 84-33-1337Lkcrxrmka department patient visitSHAVONNE CHOWDARYProAdena Pike Medical Centerca [facility] HospitalStart: 05-20-2025 End: 97-25-7846sgdghmuejsWyulim X OrzechFacility:FTMCStart: 05-20-2025 End: 26-45-9247Fbohejv encounter procedureAurora X Orzech [facility] Start: 03-19-2025 End: 26-67-4234Gcllky flowsheetShavonne Chowdary [employer] Work Phone: [facility] CWM FMStart: 03-19-2025 End: 16-59-4595Jwburv flowsJeb Chowdary [employer] EX[employer]IVE [employer]ITY Work Phone: [facility] FMStart: 03-19-2025 End: 18-13-9774Ofvbwp outpatient visit 25 minutesLisa Chowdary [employer]ITY Work Phone: [facility] FMComment on above:Benign hypertension (Primary Dx); SALVATORE on CPAP; Aortic aneurysm without rupture, unspecified portion of aorta; Morbid (severe) obesity due to excess calories ([facility]-HCC); Mixed hyperlipidemia ; Former smoker; Pre-diabetes; Essential (primary) hypertension ; SCOT (generalized anxiety disorder) ; Lumbosacral spondylosis without myelopathyStart: 03-19-2025 End: 49-97-5636yfpbxckcthRZIO MECHEot AvailableStart: 03-17-2025 End: 64-34-7750DqezyeFvin Aichholz [employer] Work Phone: [facility] FMComment on above:Non-seasonal allergic rhinitis, unspecified triggerStart: 01-21-2025 End: 60-96-0553QbnxokYrbv Aichholz [employer]IVE [employer]ITY Work Phone: [facility] CWM FMComment on above:Mild intermittent asthma with (acute) exacerbation ([facility])Start: 12-20-2024 End: 65-73-7059RpfagqSpfq Aichholz [employer] EXEC[employer]IVE [employer]URITY Work Phone: [facility] FMComment on above:Lumbosacral spondylosis without myelopathyStart: 12-06-2024 End: 32-62-5735lnbckdohygSeagre X OrzechFacility:[place]kyStart: 11-21-2024 End: 30-18-6085WhotcgBxwe Aichholz [employer] EX[employer]ITY Work Phone: [facility] FMComment on above:SCOT (generalized anxiety disorder) ([facility])Start: 11-16-2024 End: 61-78-2745Hdxfywrer Result EncounterGeneric External Data ProviderNOMS External Department UnsolicitedStart: 11-16-2024 End: 45-93-9593Xhkxeqrfg Result EncounterGeneric External Data ProviderNOMS External Department UnsolicitedStart: 11-15-2024 End: 90-96-4929Mkkqid flowsheetShavonne Chowdary [employer] Work Phone: [facility] FMStart: 11-15-2024 End: 65-74-4314Hdcfia flowsheetShavonne Chowdary [employer] Work Phone: noms [facility] FMStart: 11-15-2024 End: 30-03-9708Fdoljz outpatient visit 25 minutesShavonne Chowdary [employer] Work Phone: n[facility] FMComment on above:Benign hypertension (CMS/HCC) (Primary Dx); SALVATORE on CPAP; Morbid (severe) obesity due to excess calories (CMS/HCC); SCOT (generalized anxiety disorder) (CMS/HCC); Lumbosacral spondylosis without myelopathyStart: 11-15-2024 End: [id number] AICHHOLZNot AvailableStart: 11-13-2024 End: 54-29-3579Hgplhu outpatient visit [address] [facility] Jeannette Iqbal PA Work Phone: [facility] ClinicComment on above:Lumbosacral spondylosis without myelopathy (Primary Dx) Start: 11-13-2024 End: 61-99-1216crulkdgdumSPFVKQGKaiser Foundation Hospitaltart: 10-29-2024 End: 75-49-4098Umyerx outpatient visit 15 Jas hCowdary [employer] Work Phone: noms CWM FMComment on above:Lumbosacral spondylosis without myelopathy (Primary Dx); Benign hypertension (CMS/HCC); Morbid (severe) obesity due to excess calories (CMS/HCC)Start: 10-29-2024 End: 92-78-8160pxzxcvbhbaHTSDBeau Zayas AvailableStart: 10-19-2024 End: 69-74-8247ssqxomxwzyKXSPTHASt. 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[employer] [facility]: 10-02-2024 End: 32-99-9327Cynaes outpatient visit 25 minutesSatya Iqbal PA Work Phone: [facility] Pain [facility] ClinicComment on above:Lumbosacral spondylosis without myelopathy (Primary Dx) Start: 10-02-2024 End: 19-10-3412zhkzrmcpnuMNCSAMY S NIENBERGBluffton Hospital HospitalStart: 10-01-2024 End: 46-48-7768Dqvofi outpatient visit 15 minutesLisa Mikez [employer]UR[employer] Work Phone: noMS CWM FMComment on above:Lumbosacral spondylosis without myelopathy (Primary Dx); Morbid (severe) obesity due to excess calories (CMS/HCC)Start: 10-01-2024 End: 85-31-8954tgrvefjssqTOJD AICHHOLZNot AvailableStart: 10-01-2024 End: 66-55-8600Lqbsfi flowsheetLisa Aichholz [employer] Work Phone: noms CWM FMStart: 10-01-2024 End: 52-80-8716Vxeixa flowsheetLisa Aichholz [employer] Work Phone: noms CWM FMStart: 09-29-2024 End: 36-15-8571Szflobnxn Result EncounterGeneric External Data ProviderNOMS External Department UnsolicitedStart: 09-29-2024 End: 73-76-0358Busbxuuno Result EncounterGeneric External Data ProviderNOMS External Department UnsolicitedStart: 09-25-2024 End: 90-72-7656Kcsbcu outpatient visit 15 minutesLisa Aichholz [employer] Work Phone: noms CWM FMComment on above:COVID (Primary Dx); COPD with exacerbation (CMS/HCC); Morbid (severe) obesity due to excess calories (CMS/HCC); Body mass index (BMI) 40.0-44.9, adult (CMS/HCC); COPD mixed type (CMS/HCC)Start: 09-25-2024 End: 84-00-1380faemmfsnjzVTVK AICHHOLZNot AvailableStart: 09-25-2024 End: 90-91-5164Prthbv flowsheetLisa Aichholz [employer] Work Phone: noms CWM FMStart: 09-25-2024 End: 90-83-3439Cumqcs flowsheetLisa Aichholz [employer] EX[employer]IVE [employer]UR[employer] Work Phone: noms CWM FMStart: 68-15-9023mxpidezkigZmxcBeau Chowdary 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 GRADE TEACHER-CNPFacility:[facility] Centertart: 09-13-2024 End: 42-36-6222Hnhltl flowsheetLisa Aichholz [employer] Work Phone: noms CWM FMStart: 09-13-2024 End: 00-72-0089Mykdkd flowsheetLisa Aichholz [employer] EX[employer]URITY Work Phone: noms CWM FMStart: 09-13-2024 End: 11-88-3281Hcybiatsb Result EncounterLisa Dayannahholz [employer] Work Phone: noms External Department UnsolicitedStart: 09-13-2024 End: 37-53-2012Aretmi outpatient visit 25 minutesLisa Dayannahholz [employer] Work Phone: noms CWM FMComment on above:COPD with exacerbation (CMS/HCC) (Primary Dx); Body mass index (BMI) 40.0-44.9, adult (CMS/HCC); Morbid (severe) obesity due to excess calories (CMS/HCC); Lumbosacral spondylosis without myelopathy; COPD mixed type (CMS/HCC); WheezingStart: 09-13-2024 End: 10-83-1256cslfayjrwdEBBF DAYANNAHHOLZNot AvailableStart: 09-05-2024 End: 01-53-4175Qdsmqf outpatient visit 25 minutesLisa Aichholz [employer]URITY Work Phone: noms CWM FMComment on above:Benign hypertension (CMS/HCC) (Primary Dx); Morbid (severe) obesity due to excess calories (CMS/HCC); Body mass index (BMI) 40.0-44.9, adult (CMS/HCC); Essential (primary) hypertension (CMS/HCC); Upper respiratory tract infection, unspecified type; Lumbosacral spondylosis without myelopathyStart: 09-05-2024 End: 18-76-7681mubmwmohyyJMEB AICHHOLZNot AvailableStart: 09-05-2024 End: 45-85-5479Urrygo flowsheetLisa Aichholz [employer]ITY Work Phone: noms CWM FMStart: 09-05-2024 End: 52-33-0369Lpxnfq flowsheetLisa Aichholz [employer]ITY Work Phone: NOHI CWM FMStart: 07-16-2024 End: 55-34-7471HpcvsbXmmf Aichholz [employer] EX[employer]IVE [employer]URITY Work Phone: noms CW FMComment on above:Mild intermittent asthma with (acute) exacerbation (CMS/HCC)Start: 07-11-2024 End: 00-94-3474Aqsprrlzx Result EncounterGeneric External Data ProviderNOMS External Department UnsolicitedStart: 07-11-2024 End: 96-18-5878Mqjeiipzj Result EncounterGeneric External Data ProviderNOMS External Department UnsolicitedStart: 06-26-2024 End: 41-47-5797Uvwnny flowsheetLisa Aichholz [employer]IVE [employer]URITY Work Phone: noms CW FMStart: 06-26-2024 End: 51-34-2926Jukkxb flowsheetLisa Dayannahholz [employer] EX[employer]IVE SECURITY Work Phone: [facility] FMStart: 06-26-2024 End: 02-91-1920urgysmzhnnQqnykt X OrzechFacility:EU BellevueStart: 06-26-2024 End: 40-83-3684Mhwqqgb encounter procedureAurora X Orzech [facility] Mario start: 06-26-2024 End: 46-45-0249yjyrtxfegqRHJH DAYANNAHHOLZNot AvailableStart: 06-26-2024 End: 82-51-6441Sqbwcp outpatient visit 25 minutesLisa Chowdary [employer] EX[employer]IVE [employer]URITY Work Phone: NOMS CWM FMComment on above:Benign hypertension (CMS/HCC) (Primary Dx); SALVATORE on CPAP; Morbid obesity with body mass index (BMI) of 40.0 to 44.9 in adult (CMS/HCC); Needs flu shot; Mild persistent asthma with exacerbation (CMS/HCC); SCOT (generalized anxiety disorder) (CMS/HCC); Ventral hernia without obstruction or gangreneStart: 06-20-2024 End: 68-74-1280Mcosxzjaf Result EncounterGeneric External Data ProviderNOMS External Department UnsolicitedStart: 06-20-2024 End: 47-62-0741Rgxyhgoer Result EncounterGeneric External Data ProviderNOMS External Department UnsolicitedStart: 05-16-2024 End: 87-40-3342DqpacdVaci Aichholz [employer] EX[employer]IVE SECURITY Work Phone: noms CWM FMComment on above:SCOT (generalized anxiety disorder) (CMS/HCC); Other intervertebral disc degeneration, lumbar regionStart: 04-26-2024 End: 67-30-5564LadfbiAkio Aichholz [employer] EX[employer]IVE SECURITY Work Phone: NOMS CWM FMComment on above:Other intervertebral disc degeneration, lumbar regionStart: 04-17-2024 End: 20-52-0920JvngslVhwd Aichholz [employer] EXECUTIVE SECURITY Work Phone: noms CWM FMComment on above:Essential (primary) hypertension (CMS/HCC)Start: 04-12-2024 End: 10-75-9588Joppvuvcq Result EncounterGeneric External Data ProviderNOMS External Department UnsolicitedStart: 04-12-2024 End: 56-18-6102Sjtcmpnwa Result EncounterGeneric External Data ProviderNOMS External Department UnsolicitedStart: 03-22-2024 End: 46-21-9772Afjqjbxwn Result EncounterLisa Epi [employer]URITY Work Phone: noms External Department UnsolicitedStart: 03-22-2024 End: 59-13-2056Xotfkvkut Result EncounterLisa Marvinholz [employer]URITY Work Phone: noms External Department UnsolicitedStart: 03-09-2024 End: 31-97-2953Zmmfigkls Result EncounterLisa Aichholz [employer] EX[employer]IVE SECURITY Work Phone: noms External Department UnsolicitedStart: 03-09-2024 End: 52-04-2741Jsddidasj Result EncounterLisa Marvinholz [employer] EX[employer] SECURITY Work Phone: noms External Department UnsolicitedStart: 02-21-2024 End: 19-72-2704Jfsltgd encounter procedureAurora X Mac [facility] start: 01-23-2024 End: 05-74-3406Qjlcpsm encounter procedurePaeagle Jones HERRING [facility] start: 12-05-2023 End: 67-36-9016Fhdzawt encounter procedurePatricpop Jones Viewbix [facility] start: 27-18-4104Htctpk flowsheetLisa Marvinholz [employer]URITY Work Phone: noms CWM FMStart: 50-17-0574Swxxee flowsheetLisa Aichholz [employer] EX[employer]URITY Work Phone: noms CWM FMStart: 09-29-2023 End: 68-58-6672Wfbtzw outpatient visit 25 minutesLisa Aichholz [employer] EX[employer]IVE [employer]URITY Work Phone: noms CWM FMComment on above:Benign hypertension (CMS/HCC) (Primary Dx); Morbid (severe) obesity due to excess calories (E66.01); Body mass index [BMI] 45.0-49.9, adult (Z68.42); Aortic aneurysm without rupture, unspecified portion of aorta (CMS/HCC); High cholesterol (CMS/HCC); SCOT (generalized anxiety disorder) (CMS/HCC); Screening for prostate cancer; Pre-diabetes; SALVATORE on CPAP; Mild persistent asthma with exacerbation (CMS/HCC); Lung noduleStart: 78-34-1867Fxsthuyta encounterRafael Brown MD Work Phone: cardiothoracicComment on above:Referral Information Start: 03-28-2023 End: 65-63-9915Acxbtea encounter procedureJavier HERRING [facility] start: 03-07-2023 End: 88-71-9487Essxdcq encounter procedureJavier HERRING [facility] start: 01-18-2023 End: 37-99-8162mblvhqujtiZG SHAHEEN DRISCOLL .Facility:Q2Deaum: 01-13-2023 End: 05-57-0306chraldximlAOE SHAVONNE EPIFacility:S3Wpbae: 01-03-2023 End: 04-36-2567dbksxnvlazJmxmkk Dymond Other [place] fl3ur Other Start: 73-79-2102Dfmhqw outpatient visit 15 minutes [facility] ClydeStart: 09-01-2022 End: 30-13-7210cwynsrbormZL DOCTOR MISCFacility:M8Louex: 07-28-2022 End: 44-36-8138yinttuyejkJMY SHAVONNE AICHMARTINZFacility:D8Vgzul: 07-05-2022 End: 61-83-2722gdamnhssmaEJ DARIN CHAPAFacility:Q6Lctmt: 06-29-2022 End: 54-03-8328pzaqfwbbadKPF SHAVONNE AICHHOLZFacility:H7Zvnpn: 03-03-2022 End: 84-25-5596aohklzgbdmYYE SHAVONNE AICHHOLZFacility:Y9Mqbdv: 02-23-2022 End: 74-07-2340ernpxsshqoZIQ SHAVONNE EPIFacility:B9Ppmfs: 02-14-2020 End: 07-65-0085Qtgapalgv department [facility]WE[facility] Fanny PEREZGenesis Hospitaltart: 02-14-2020 End: 20-25-5624Xtxreqixb department patient visitJoshua Perez Work Phone: [facility] EDComment on above:Dyspnea and respiratory abnormalities (Primary Dx)Start: 08-28-2014 End: 38-54-2239Arsquqslb encounterItalo Pruitt MD Work Phone: OrthopaedicsComment on above:Surgical Followup Procedures DateProcedureProcedure DetailPerforming ClinicianStart: 62-66-2217Ahqnxplkan glycosylated a2cGdpz Dayannahkia [employer]URITY Work Phone: Start: 15-40-3311ZEH CBC WITH AUTO DIFFGeneric External Data ProviderStart: 23-01-0439WSR TESTOSTERONEGeneric External Data ProviderStart: 21-96-0807TY CHEST 2VLisa Aichholz [employer] Work Phone: Start: 10-69-4163KWZ CBC WITH AUTO DIFFGeneric External Data ProviderStart: 71-63-4367PIG HGB HCTGeneric External Data Provider Start: 58-40-2937JWZ TESTOSTERONEGeneric External Data ProviderStart: 03-22-2024 XR CERVICAL SPINE 2-3VLisa Dayannahholz [employer] Work Phone: Start: 37-33-9981Mvbwc hand 2 viewsLisa Dayannahholz [employer]URITY Work Phone: Start: 19-37-4343SWL screeningCNP SHAVONNE EPIComment on above:Performed By: #### [facility] ####[address] [place], [place] [address]Uy. Yiamairani ChangStart: 66-69-6750Mwgmbdwtjc exam chest 2 viewsETAN EITCHESStart: 24-26-4640Tdcvissxfj exam chest 2 viewsJoshua Perez Work Phone: Cooled radiofrequency ablation of nerve using ultrasonographic guidanceJavier HERRING HydrocelectomyPaeagle HERRING Knee region structure (body structure)Javier HERRING Large intestine excisionPaeagle HERRING Shoulder region structure (body structure)Javier HERRING Plan of Treatment DateCare ActivityDetailAuthorStart: 59-32-2425Eussbeo ScreeningTobacco Screening [facility] iClinical SystemStart: 65-85-6285Gxklw BMI ScreeningAdult BMI Screening [facility] iClinical SystemStart: 80-31-0692Lsdjxqt ScreeningTobacco Screening [facility] / NHRMCtart: 09-19-2025 End: 96-03-6946Dxhmntp encounter /29/2026 10:30 AM EST Office Visit [facility] [address] [place] [address] Shavonne Chowdary, [employer] EX[employer]IVE [employer]ITY [address] [place] [address] NOMS CW FMStart: 82-53-7367oujcuwycnqPxppiotnpaIxjixxfe:EU [place]uskyStart: 78-85-6251ZYIWV-19 Vaccine ( season)COVID-19 Vaccine ( season)NOMS HealthcareStart: 03-19-2025 End: 85-15-9390Pphckel encounter procedureNOMS CWM FMComment on above:SALVATORE on CPAP (Primary Dx); Benign hypertension ; Aortic aneurysm without rupture, unspecified portion of aorta; Morbid (severe) obesity due to excess calories (CMS-HCC); Mixed hyperlipidemia ; Former smoker; Pre-diabetesStart: 01-02-2025 End: 73-66-9823Axalbgc encounter yimendlea94/14/2025 9:40 AM EDT Office Visit [facility] [address] [place] [address] Shavonne Chowdary, [employer]ITY [address] [place] [address] NOMJeannette CHÁVEZ FMStart: 12-24-2024 End: 94-97-7412Ajszxgc encounter rgiquhmxg01/05/2025 9:40 AM EDT Office Visit [facility] [address] [place] [address] Shavonne Chowdary, [employer]URITY [address] [place] [address] [facility] CWM FMStart: 11-15-2024 End: 12-56-1598Smfowyo encounter ixnzhsbld26/27/2025 1:00 PM EDT Office Visit [facility] [address] [place] [address] Shavonne Chowdary, [employer] EX[employer]URITY [address] [place] [address] NOMS CWNorman FMStart: 11-13-2024 End: 36-27-1134Ewdkbnb encounter xapqlahmr57/25/2025 1:15 PM EDT Office Visit [facility] [address] [place] [address] Satya Iqbal, PA [address] [place] [address] [facility] ClinicStart: 10-29-2024 End: 51-27-5132Lspkapq encounter xulxiwpot37/10/2025 1:40 PM EDT Office Visit [facility] [address] [place] [address] Shavonne Chowdary, [employer]URITY [address] [place] [address] NOMS CWM FMStart: 10-19-2024 End: 69-32-6381Wricwuina to same day surgery ohjmxb4010/19/2024 2:00 PM EST - 10/19/2024 2:12 PM EST Surgery [facility] ro[facility] [address] [place] [address] Parish Wren MD [address] [place] [address] RADIOFREQUENCY ABLATION SPINAL: right L45 51rfa [18978 (CPT )][facility] ProceduresComment on above:RADIOFREQUENCY ABLATION SPINAL: right L45 51rfa [04354 (CPT )]Start: 10-19-2024 End: 56-92-3322Hfuc nrolytc agnt parverteb fct sngl lmbr/sacralRADIOFREQUENCY ABLATION SPINAL Lumbosacral spondylosis without myelopathy 10/19/2024 2:00 PM ESTFREMONT PAINStart: 41-23-6440Vswmmxtqgl hospital visit by wtsknvvqu32/28/2025 2:00 PM EST Hospital Encounter [facility] Procedures [address] [place] [address] Parish Wren MD [address] [place] [address] [facility] Pain ProceduresStart: 10-01-2024 End: 45-99-7776Cmurofo encounter vxilbiyiq79/10/2025 3:20 PM EST Office Visit [facility] [address] [place] [address] Shavonne Chowdary, AJIT [address] [place] [address] ArrivedNOMS CWM FMComment on above:ArrivedStart: 09-25-2024 End: 53-46-9798Akdmtbi encounter procedureNOMS [facility] FMComment on above:COPD with exacerbation (CMS/HCC) (Primary Dx); Morbid (severe) obesity due to excess calories (CMS/HCC); Body mass index (BMI) 40.0-44.9, adult (CMS/HCC); COVID; COPD mixed type (CMS/HCC)Start: 09-13-2024 End: 07-20-4100RG Chest 2 ViewsXR chest 2 views Imaging STAT COPD mixed type (CMS/HCC) COPD with exacerbation (CMS/HCC) Wheezing Expected: 09/13/2024 (Approximate), Expires: 09/13/2025[facility] Work Phone: Comment on above:Expected: 09/13/2024 (Approximate), Expires: 09/13/2025Start: 09-05-2024 End: 14-79-1935Vxqosxq encounter hcotjhitu84/15/2025 2:20 PM EST Office Visit [facility] [address] [place] [address] Shavonne Chowdary, AJIT [address] [place] [address] Benign hypertension (CMS/HCC) (Primary Dx); Morbid (severe) obesity due to excess calories (CMS/HCC); Body mass index (BMI) 40.0-44.9, adult (CMS/HCC)[facility] FMComment on above:Benign hypertension (CMS/HCC) (Primary Dx); Morbid (severe) obesity due to excess calories (CMS/HCC); Body mass index (BMI) 40.0-44.9, adult (CMS/HCC)Start: 06-26-2024 End: 33-76-0115Lxwuvbh encounter kqecxcnix56/05/2024 9:20 AM EST Office Visit [facility] FM [address] [place] [address] Shavonne Chowdary, [employer]ITY [address] [place] [place] [address] VALERY CHÁVEZ FMStart: 12-28-2023 End: 54-29-3046Tlnayxe encounter nrvopxrxf81/08/2024 1:00 PM EDT Office Visit NOMJeannette CHÁVEZ FM [address] [place] [address] Epi Shavonne, [employer]ITY [address] [place] [address] VALERY CHÁVEZ FMStart: 09-29-2023 End: 43-31-3350KRG W Auto Differential panel - BloodCBC and differential Lab Routine Benign hypertension (CMS/HCC) Expected: 09/29/2023 (Approximate), E xpires: 09/29/2024[facility] Work Phone: Comment on above:Expected: 09/29/2023 (Approximate), Expires: 09/29/2024Start: 09-29-2023 End: 78-98-7822Qmwkheirxcqma metabolic 2000 panel - Serum or PlasmaComprehensive metabolic panel Lab Routine Pre-diabetes Expected: 09/29/2023 (Approximate), Expires:09/29/2024[facility] HealthcareComment on above:Expected: 09/29/2023 (Approximate), Expires: 09/29/2024Start: 09-29-2023 End: 30-46-7394Ithokqwgjf A1c measurementHemoglobin A1c Lab Routine Pre-diabetes Expected: 09/29/2023 (Approximate), Expires: 09/29/2024NOMS HealthcareComment on above:Expected: 09/29/2023 (Approximate), Expires: 09/29/2024Start: 09-29-2023 End: 01-81-8853Gpbzq 1996 panel - Serum or PlasmaLipid panel Lab Routine High cholesterol (CMS/HCC) Expected: 09/29/2023 (Approximate), Expires: 09/29/2024 NOMS HealthcareComment on above:Expected: 09/29/2023 (Approximate), Expires: 09/29/2024Start: 09-29-2023 End: 19-41-1735Sufsmsnaazhd/Creatinine panel in random UrineMicroalbumin / creatinine, urine ratio Lab Routine Benign hypertension (CMS/HCC) Pre-diabetes Expected: 09/29/2023 (Approximate), Expires: 09/29/2024[facility] HealthcareComment on above:Expected: 09/29/2023 (Approximate), Expires: 09/29/2024Start: 09-29-2023 End: 74-53-9247Fnkgijlw specific Ag [Mass/volume] in Serum or PlasmaPSA Lab Routine Screening for prostate cancer Expected: 09/29/2023 (Approximate), Expires: 09/29/2024[facility] HealthcareComment on above:Expected: 09/29/2023 (Approximate), Expires: 09/29/2024Start: 09-29-2023 End: 99-82-2637Jghenjqmhl complete panel - UrineUrinalysis with reflex microscopic (clean catch) Lab Routine Benign hypertension (CMS/HCC) Pre-diabetes Expected: 09/29/2023 (Approximate), Expires: 09/29/2024[facility] HealthcareComment on above:Expected: 09/29/2023 (Approximate), Expires: 09/29/2024Start: 31-42-2163Ygsoxipvm vaccinationInfluenza Vaccine (#1)[facility]art: 46-58-2100Ziracpsitq AssessmentDepression AssessmentCleOhioHealth Shelby Hospitaltart: 96-46-3274Lwvlagcz Cancer Screening DiscussionProstate Cancer Screening DiscussionCleOhioHealth Shelby Hospitaltart: 88-56-4598Qhjnnjocx vaccinationINFLUENZA (Season Ended)[facility]ertart: 37-72-3191Iekonkdyo vaccinationFlu vaccine (Season Ended)[place], [place]Start: 05-85-6944Aivfezitsyaumi of varicella zoster vaccineZoster (Shingles) Vaccine (1 of 2)[facility] iClinical SystemStart: 44-35-0481Wnwcyixqg for malignant neoplasm of colonAlbany, [place]Start: 08-13-0662Ijppbowi Vaccine (1 of 2)Shingles Vaccine (1 of 2)[facility] [place] Start: 73-99-5225NNDSBDPE VACCINE (1 of 2)SHINGRIX VACCINE (1 of 2)[facility]art: 74-58-3722Batwylhzt (FIT-DNA)Cologuard (FIT-DNA)[facility] Start: 64-89-1653GozxpmweddzIkqvzsjeqjoNavtumrip ClinicStart: 2011 Colorectal Cancer ScreeningColorectal Cancer ScreeningUniversity Hospitals Ahuja Medical Centertart: 81-20-3467JI COLONOGRAPHYCT COLONOGRAPHYUniversity Hospitals Ahuja Medical Centertart: 2011 DIABETES SCREENDIABETES SCREENUniversity Hospitals Ahuja Medical Centertart: 28-30-7986Ooziygqk ScreeningDiabetes ScreeningUniversity Hospitals Ahuja Medical Centertart: 61-34-7913Dnrzv Occult Blood Fecal Occult BloodUniversity Hospitals Ahuja Medical Centertart: 42-94-1094TAZFXYSHSACOPENAUSDEOWJOIS [facility]ertart: 08-77-5383Vxooe panelLipid screenAlbany, [place] Start: 18-85-2300Jbmxp 1996 panel - Serum or PlasmaLipid ScreeningUniversity Hospitals Ahuja Medical Centertart: 66-40-9557YKBTX SCREENLIPID SCREENUniversity Hospitals Ahuja Medical Centertart: 1985 DTaP,Tdap and Td Vaccines (1 - Tdap)DTaP,Tdap and Td Vaccines (1 - Tdap) [facility] / NHRMCtart: 45-43-7028TNzT/Tdap/Td vaccine (1 - Tdap) DTaP/Tdap/Td vaccine (1 - Tdap)[place], [place]Start: 34-24-1509Bgggbylza B Vaccines (1 of 3 - 19+ 3-dose series)Hepatitis B Vaccines (1 of 3 - 19+ 3-dose series)[facility]Start: 68-42-5955Diubrwpufqiw Vaccine: Pediatrics (0 to 5 Years) and At-Risk Patients (6 to 64 Years) (1 of 2 - PCV)Pneumococcal Vaccine: Pediatrics (0 to 5 Years) and At-Risk Patients (6 to 64 Years) (1 of 2 - PCV) [facility] CenterStart: 24-41-9022Hzwdf microalbumin profileUniversity Hospitals Ahuja Medical Centertart: 10-06-7304Syiop BMI Follow Up PlanAdult BMI Follow Up [facility]ertart: 42-82-6246XCGOOGEBP C SCREENINGHEPATITIS C SCREENINGUniversity Hospitals A[facility] Centertart: 12-24-2800YRW SCREENINGHIV SCREENINGParma Community General Hospitalrt: 11-50-6062PHN screeningHIV screenDayton Osteopathic Hospital: 25-99-5892Mtigt depression screening assessmentDEPRESSION SCREENINGNovant Health / NHRMCtart: 33-18-5451KArK/Tdap/Td Vaccines (1 - Tdap)DTaP/Tdap/Td Vaccines (1 - Tdap)[facility] CenterStart: 78-26-2600PSB Vaccines (1 of 1 - Standard series)MMR Vaccines (1 of 1 - Standard series)[facility] HealthcareStart: 47-77-2033Bjkxy-19 Vaccine (#1) Covid-19 Vaccine (#1)[facility]: 26-25-4372Pvesopsbjo measurement Creatinine monitoringDayton Osteopathic Hospital: 39-38-7078Uexpzulaw B Vaccine (1 of 3 - 3-dose series)Hepatitis B Vaccine (1 of 3 - 3-dose series)[facility] Centertart: 21-87-7606Tghuhinak monitoringPotassium monitoringDayton Osteopathic Hospital: 61-37-6149Gnjngar CounselingTobacco CounselingSamaritan Hospital Immunizations Immunization DateImmunizationNotesCare WzhizedoSewfvsrh48-40-7044unvmqgddf virus vaccine, unspecified formulationWendi Watts [facility] on above:Result Comment: 2024-06-26: PT TOLERATED INJECTION WELL WITH OUT NO ADVERSE REACTION DURING PMAWCUUIG11-62-6081Wdtdaihuy, injectable, Madin Taina Canine Kidney, preservative free, quadrivalentLisa Aichholz [employer] Work Phone: [facility] CenterVtfckvpgic43-54-5387rskdxdrwb virus vaccine, unspecified formulationJavier HERRING [facility]11-11-2020Influenza, Seasonal, Quadrivalent, AdjuvantedLisa Aichholz [employer] Work Phone: [facility] Healthcare Payers DatePayer CategoryPayerPolicy [id number] [facility] [id number] Cross Blue ShieldBCBS Member Subscriber Plan / Payer (Effective 2014-Present) Name: Marcel Wahl Relation to Subscriber: Self Name: Marcel Wahl Payer ID: Not on file Type: Not on file Address: [address] [place] [id number] - [facility] [id number] BCBS OUT OF STATE xxxxxxxxxxxx 2014-Present [address] [place], [place] [address]cyyvcvqwojlr [id number] 1.2.840.510248.1.13.159.2.7.3.390669.90930-31-3172Haswvfj 1.2.840.971292.1.13.159.2.7.3.347[id number] 2.16.840.1.541042.3.57[id number] 2.16.840.1.786131.3.57[id number] 2.16.840.1.662181.3.579.2.93647-68-1530Kjtywmx3468981 2.16.840.1.319601.3.579.2.87680-90-7769Cxpcjcv9237044 2.16.840.1.868638.3.579.2.25571-12-0016Wdrcaly7076425 2.16.840.1.770519.3.579.[id number] 2.840.1.967656.3.579.2.99508-48-5947Vncsysj6703472 2.840.1.325644.3.579.2.59414-48-3898Toslclr7575526 2.16.840.1.687474.3.579.2.145[id number] 2.16.840.1.494435.3.579.2.[id number] 2.840.1.668058.3.579.2.[id number] 2.16840.1.609749.3.579.2.444264-53-6073Qmbjsmw4694632 2.16.840.1.631711.3.579.2.017838-67-9036Ejwzmbw3171385 2.16.840.1.284464.3.579.2.804915-92-6003Hkmtzca4453750 2.16.840.1.763529.3.579.2.074179-15-7849Tnksljh1666082 2.16.840.1.572181.3.579.[id number] 2.16.840.1.267780.3.57[id number] 2.16.840.1.724133.3.57[id number] 2.16.840.1.728172.3.57[id number] 2.16.840.1.088540.3.579.2.88241-76-5249Acnvsea80296852 2.16.840.1.260584.3.579.2.61844-42-1419Wsjjlel49886274 2.16.840.1.415420.3.579.2.59247-34-7237Tsdmsoc74810106 2.16.840.1.760729.3.579.2.96022-79-4225Rmacwxw29541372 2.16.840.1.941900.3.579.2.73937-64-5031Lswkhqr42852724 2.16.840.1.067754.3.579.2.55593-96-7364Lkbkqju168275141 2.16.840.1.275257.3.579.2.396230-37-5535Gkxqhks623896695 2.16.840.1.608075.3.579.2.302885-04-6009Qmhpxgf283753275 2.16.840.1.352902.3.579.2.314413-45-5267Fcgkpql243570810 2.16.840.1.783697.3.579.2.20[id number] 2.16.840.1.520654.3.579.2.48[id number] Social History DateTypeDetailFacilityStart: 02-14-2020 End: 17-10-6948Nrwwzbn smoking status NHISFormer smokerExecutive Urology of [facility] Centertory of tobacco useCigarette SmokerAlbany, [place]Start: 48-23-6330Vnb Assigned At BirthNot on fileThe [facility], NDExposure to SARS-CoV-2 (event)Unable to assessThe [facility], [place]Start: 23-60-5154Phfvhwc smoking status NHISCurrent every day smokerC[facility]innati [facility] Start: 07-30-2014 End: 34-11-2718Lhlantgvfk smoked current (pack per day) - ReportedNOIL HealthcareStart: 66-71-2441Lvbyvyg use and exposureNever usedCincinnati Va Medical Center Start: 07-30-2014 End: 08-02-0922Byrpxcu intakeCurrent drinker of alcohol (finding)[facility] Centertart: 96-66-9453Qclgctn CommentsocialUniversity Hospitals Ahuja Medical Centertart: 08-24-2023 End: 13-74-1806Sor Assigned At BirthUniversity Hospitals Beachwood Medical Centertart: 85-06-1806Kmeuzhw smoking statusNeverExecutive Urology of [facility] Centertory of tobacco useCurrent smokerASHLEY REGIONAL [facility] HealthcareStart: 39-38-3670Ueaugnm Commentmonthly or less, caffeine more than 4 cups per dayNOMS HealthcareWithin the last year, have you been afraid of your partner or ex-partner?NoNOMS HealthcareDo you belong to any clubs or organizations such as hinduism groups, unions, fraternal or athletic groups, or school groups?YesNOMS HealthcareAre you now , , , , never or living with a partner?MarriedNOMS HealthcareHow often to you have a drink containing alcohol?NeverNOMS HealthcareDo you feel stress - tense, restless, nervous, or anxious, or unable to sleep at night because yourmind is troubled all the time - these days [OSQ]To some extentNOMS Healthcare(I/We) worried whether (my/our) food would run out before (I/we) got money to buy more.Never trueNOMS HealthcareHistory of tobacco usePassive smokerNOMS HealthcareStart: 53-57-5673Tkw assigned at birthMaleNOMS HealthcareStart: 50-67-7196Yllcnj identityIdentifies as male gender (finding)NOMS HealthcareStart: 05-28-2024 Sexual orientationHeterosexual (finding)NOMS HealthcareStart: 79-38-0349Yrhtutp use and exposureUser of smokeless tobaccoProMedica Health SystemStart: 06-85-3756Kbeegje CommentQuit smoking 1 year agoUses oral nicotine lozenges [facility] SystemStart: 11-36-1172Dlawhka CommentSociallyPOakdale Community Hospital Health SystemStart: 03-27-2015 End: 72-15-3630PfwXcbf (finding)[facility] / NHRMCexual Orientation [facility] Functional Status CfivRttczqfdgxGxegbtZjsuxbeo48-04-5044Wbwpaoxmnn StatusN/AExecutive Urology of [place] 706961-05-2024Functional StatusN/A[facility]07-02-2024Functional StatusN/A [facility]04-15-2024Functional StatusN/A[facility]08-07-2023 Functional StatusN/A[facility] 65-96-5209Obfcaysgvx StatusN/A[facility] Clinical Notes 08-28-2014 to 05-20-2025 Note Date & PxezAszbLshiqkpj32-45-4536 Hospital Discharge instructions Patient Education 05/20/2025 11:39:50 Hypogonadism, Male Hypogonadism, Male Male hypogonadism is [...] older. This is the main cause of thiscondition. Use of medicines, such as antidepressants, steroids, [...] therapy. Follow these instructions at home: Take fgaq-dpe-ljlcvod and prescription medicines only as told by [...] for prostate cancer before putting you on testosteronetherapy. This information is not intended to replace advice given to you by your health care provider. Make sure you discuss any questions you have with your health care provider. Document Revised: 04/09/2021 Document Reviewed: 04/09/2021 [employer] Patient Education 2023 [employer]. 05/20/2025 11:39:50 Erectile Dysfunction Erectile Dysfunction Erectile dysfunction (ED) is the inability to get or keep an erection in order to have sexual intercourse. ED is considered a symptom of an underlying disorder and is not considered a disease. ED mayinclude: Inability to get an erection. Lack of [...] back or pelvic injuries, multiple sclerosis, Parkinson's disease,spinal cord injury, and stroke. Certain medicines, such [...] or the penis may be too curved toallow for intercourse. Never having nighttime or morning [...] penis. During this procedure, a blood vessel froma different part of the body is placed into the penis to allow blood to flow around (bypass) damaged or blocked blood vessels. Lifestyle changes, such as exercising more, losing weight, and quitting smoking. Follow these instructions at home: Medicines Take qcur-hed-byqahcb and prescription medicines only as told by your health care provider. Do not increase the dosage without first discussing it with your health care provider. If you are using self-injections, do injections as directed by your health care provider. Make sureyou avoid any veins that are on the surface of the penis. After giving an injection, apply pressureto the injection site for 5 minutes. Talk [...] you need help quitting, ask your health careprovider. Before using a vacuum pump, read the instructions that come with the pump and discuss any questionswith your health care provider. Keep all follow-up [...] provider. Document Revised: 11/04/2021 Document Reviewed: 11/04/2021 [employer] Patient Education 2023 [employer]. 05/20/2025 11:39:49 Benign Prostatic Hyperplasia Benign Prostatic Hyperplasia Benign prostatic hyperplasia (BPH) is an enlarged prostate gland that is caused by the normal agingprocess. The prostate may get bigger as a man gets older. The condition is not caused by cancer. The prostate is a walnut-sized gland that is involved in the production of semen. It is located in front of the rectum and below the bladder. The bladder stores urine. The urethra carries stored urine ou t of the body. An enlarged prostate can press on the urethra. This can make it harder to pass urine. The buildup of urine in the bladder can cause infection. Back pressure and infection may progress to bladder damage and kidney (renal) failure. What are the causes? This condition is part of the normal aging process. However, not all men develop problems from thiscondition. If the prostate enlarges away from the [...] urethra. Follow these instructions at home: Take ixab-bxy-ajhxvlp and prescription medicines only as told by [...] provider. Document Revised: 02/24/2022 Document Reviewed: 02/24/2022 [employer] Patient Education 2023 [employer]. Follow Up Care 04/16/2025 10:59:37 With:RENETTA Watts APRN, CHUNG Mckeon, URL Address: When: Unknown Comments:8 wk w/ labs [facility] Carlos 09-29-2025 NotePatient Education Urology Hypogonadism, Male Male hypogonadism is [...] Follow these instructions at home: ??? Take wkth-tak-xoxqbgf and prescription medicines only as told by your health care provider. ??? Eat foods that are high in fiber, such as beans, whole grains, and fresh fruits and vegetables.Limit foods that are high in fat and [...] sure you discuss any (more content not included)...[facility]07-29-2025 History of Present illness Narrative* Shavonne Chowdary, AJIT - 03/19/2025 11:50 AM EDT Images from the original note were not included. Marcel Wahl is a 59 y.o. male presents with chief complaint of Diabetes HPI: Here for 6 month FU: HTN: compliant with meds, no side effects, no LE Edema SALVATORE: compliant with PAP, 7-8 hours, feels rested Lumbar back pain: chronic, no significant changes to his pain levels or patterns, does need his FMLA completed for this as well Diabetes: takes meds as directed, no vision changes no open sores in legs, A1c completed as well SUBJECTIVE: MEDICATIONS: Current Outpatient Medications Medication Instructions [...] aneurysm without rupture, unspecified portion of aorta 09/28/2023 Benign hypertension 09/28/2023 BPH associated with nocturia 09/28/2023 COVID-19 virus infection Diverticulitis DJD of right shoulder Erectile dysfunction of organic origin SCOT (generalized anxiety disorder) 08/18/2023 High cholesterol 09/28/2023 Insomnia Mild persistent asthma with exacerbation (HCC) 09/28/2023 Controlled with singulair. Does not need rescue inhaler Morbid obesity with body mass index (BMI) of 40.0 to 44.9 in adult ([facility]) 09/28/2023 SALVATORE on CPAP 09/28/2023 Osteoarthritis 09/28/2023 [...] 09/28/2023 Spinal stenosis, lumbar 06/12/2014 Tortuous aorta 09/28/2023 Ventral hernia 09/28/2023 3.9) ; Has [...] in his father. OBJECTIVE: Visit Vitals BP 110/78 (BP Location: Left arm, Patient Position: Sitting, BP Cuff Size: Large adult) Pulse 81 Temp 98.5 F (Temporal) Resp 18 Wt 286 lb 12.8 oz SpO2 96% BMI 41.15 kg/m Smoking Status Former BSA 2.53 m Physical Exam Vitals and nursing note [...] rhonchi. Abdominal: General: Bowel sounds are normal. There is no distension. Palpations: Abdomen is soft. Tenderness: There is no abdominal tenderness. Hernia: A hernia is present. Musculoskeletal: Cervical [...] Addressed This Visit SCOT (generalized anxiety disorder) Relevant Medications busPIRone (Buspar) 10 MG tablet Lumbosacral spondylosis without myelopathy Relevant Medications amitriptyline (Elavil) 50 MG tablet SALVATORE on CPAP - Primary You have a diagnosis of obstructive sleep [...] Company that supplies your machine and tubing/filters etc:[facility] Doctor that manages your SALVATORE: PCP Benign hypertension Please check blood pressure daily and record DASH diet Limit caffeine Take medication as directed Contact office if chest pain, pressure, dizziness, shortness of breath, swelling legs Recommend slow position changes Current meds: lisinopril/HCTZ Aortic aneurysm without rupture, unspecified portion of aorta Saw vascular people will continue to have this monitored Morbid (severe) obesity due to excess calories ([facility]) Discussed with patient their BMI (actual, verses recommended). We have also discussed lifestyle modifications: attempts to perform physical activity as chronic conditions allow, also to monitor dietary intake: increasing protein/fruits/veggies and lowering carb intake (unless contraindicated). Limit sodas, juices, and sugary drinks. Pre-diabetes No current meds for DM Does take tess/hydrochlorothiazide A1c: Relevant Orders POCT glycosylated hemoglobin (Hb A1C) docked device (Completed) Mixed hyperlipidemia Check labs yearly Former smoker Other Visit Diagnoses Essential (primary) hypertension Relevant Medications lisinopril-hydroCHLOROthiazide 10-12.5 MG tablet * Shavonne Chowdary NP - 03/19/2025 6:45 AM EDTAssociated Problem(s): Mixed hyperlipidemia Check labs yearly * Shavonne Chowdary NP - 03/19/2025 6:45 AM EDTAssociated Problem(s): Morbid (severe) obesity due to excess calories ([facility]) Discussed with patient their BMI (actual, verses recommended). We have also discussed lifestyle modifications: attempts to perform physical activity as chronic conditions allow, also to monitor dietary intake: increasing protein/fruits/veggies and lowering carb intake (unless contraindicated). Limit sodas, juices, and sugary drinks. * Shavonne Chowdary NP - 03/19/2025 6:44 AM EDTAssociated Problem(s): Pre-diabetes No current meds for DM Does take tess/hydrochlorothiazide A1c: * Shavonne Chowdary NP - 03/19/2025 6:44 AM EDTAssociated Problem(s): Aortic aneurysm without rupture, unspecified portion of aorta Saw vascular people will continue to have this monitored * Shavonne Chowdary NP - 03/19/2025 6:43 AM EDTAssociated Problem(s): Benign hypertension Please check blood pressure daily and record DASH diet Limit caffeine Take medication as directed Contact office if chest pain, pressure, dizziness, shortness of breath, swelling legs Recommend slow position changes Current meds: lisinopril/HCTZ * Shavonne Chowdary NP - 03/19/2025 6:41 AM EDTAssociated Problem(s): SALVATORE on CPAP You have a [...] Company that supplies your machine and tubing/filters etc:[facility] Doctor that manages your SALVATORE: PCP documented in this encounterN[facility] [id number] History of Present illness Narrative* Shavonne Chowdary NP - 11/15/2024 1:28 PM EDTAssociated Problem(s): Lumbosacral spondylosis without myelopathy Was last seen for this condition by me approx 1 month ago He is also under the care of [facility] pain mgmt Had RFA procedure 10/19/24 Pain levels 3-4/10 Will RTW no restrictions as of 11/19/24 * FRANKLIN PANIAGUA - 11/15/2024 1:00 PM EDT Pt RTW Sunday 11/19 * Shavonne Chowdary NP - 11/15/2024 1:00 PM EDT Marcel Wahl is a 59 y.o. male [...] sedentary lifestyle. Past treatments include diuretics and TESS inhibitors. The current treatment provides significant improvement. There are no compliance problems. There is no history of kidney disease, CAD/[place] or heart failure. Anxiety Presents for follow-up [...] activity change, appetite change, chills, fatigue, fever, irritabilityand unexpected weight change. HENT: Negative for congestion, [...] aneurysm without rupture, unspecified portion of aorta ([facility]) 09/28/2023 Benign hypertension ([facility]) 09/28/2023 BPH associated with nocturia 09/28/2023 COVID-19 virus infection Diverticulitis DJD of right shoulder Erectile dysfunction of organic origin SCOT (generalized anxiety disorder) ([facility]) 08/18/2023 High cholesterol ([facility]) 09/28/2023 Insomnia Mild persistent asthma with exacerbation ([facility]) 09/28/2023 Controlled with singulair. Does not need rescue inhaler Morbid obesity with body mass index (BMI) of 40.0 to 44.9 in adult ([facility]) 09/28/2023 SALVATORE on CPAP 09/28/2023 Osteoarthritis 09/28/2023 [...] that manages your SALVATORE: PCP Benign hypertension ([facility]) - Primary Please check blood pressure daily [...] months , keep up the good work * Shavonne Chowdary NP - 11/15/2024 6:43 AM EDTAssociated Problem(s): SCOT (generalized anxiety disorder) (CMS/HCC) Continues with taking buspar BID, helps with symptoms No adjustments needed at this time No SI/HI/Hallucinations SCOT 7 =3 * Shavonne Chowdary NP - 11/15/2024 6:40 AM EDTAssociated Problem(s): Morbid (severe) obesity due to excess [...] months , keep up the good work * Shavonne Chowdary NP - 11/15/2024 6:40 AM EDTAssociated Problem(s): Benign hypertension (CMS/HCC) Please check blood pressure daily and record DASH diet Limit caffeine Take medication as directed Contact office if chest pain, pressure, dizziness, shortness of breath, swelling legs Recommend slow position changes Current meds: lisinopril/HCTZ * Shavonne Chowdary NP - 11/15/2024 6:40 AM EDTAssociated Problem(s): SALVATORE on CPAP You have a [...] manages your SALVATORE: PCP documented in this [facility]03-27-2025 Instructions* Patient Instructions* Shavonne Chowdary NP - 11/15/2024 1:00 PM EDT No medication dose changes documented in this [facility]03-25-2025 History of Present illness Narrative* DANIELE Khan - 11/13/2024 1:15 PM EDT [facility] [address] [place] [address] Patient: Marcel Wahl Sex: male : 1965 Age: 59 y.o. PCP: SHAVONNE CHOWDARY APRN-[facility] 11/13/2024 Marcel Wahl is here for a(n) post procedure follow up right L4/5 5/1 RFA with 80% relief that continues. Patient reports feeling better since having RFA. Currently rates pain a 3/10, but canincrease with ambulation. Date of onset of pain: [...] with 70 % relief 10/19/24 Right L4/5 / RFA 80% relief that continues Back Pain This is a chronic problem. The current episode started more than 1 year ago (approx 2021). The problem occurs constantly. The problem has been gradually improving (since RFA) since onset. The pain ispresent in the lumbar spine and gluteal (right hip). The quality of the pain is described as aching(sharp). The pain does not radiate. The pain [...] has tried NSAIDs, muscle relaxant, chiropractic manipulation andhome exercises (flexeril mod relief, IBU, etodolac- no [...] positive airway pressure (CPAP) Osteoarthritis Rheumatoid arthritis ([facility]) Right knee meniscal tear hx Sleep apnea CPAP HS Past Surgical History: Procedure Laterality Date ADVANCEMENT / RECONSTRUCTION POSTERIOR TIBIAL TENDON / KIDNER Right 2007 Right foot and posterior tendon reconstruction ANKLE SURGERY Right tendon transplant COLECTOMY DENTAL SURGERY HYDROCELECTOMY INJECTION BLOCK NERVE MEDIAL BRANCH: bilat L 4/5 5/ Bilateral 10/29/2022 Performed by Parish Wren MD at [facility] INJECTION BLOCK NERVE MEDIAL BRANCH: bilat L 4/5 5/ Bilateral 09/24/2022 Performed by Parish Wren MD at [facility] Right RADIOFREQUENCY ABLATION SPINAL: right L 4/5 5/1 Right 03/04/2023 Performed by Parish Wren MD at [facility] RADIOFREQUENCY ABLATION SPINAL: right L 4/5, 5/1 Right 10/19/2024 Performed by Parish Wren MD at [facility] RIGHT L3/4, 4/5, 5/1 MEDIAL BRANCH NERVE BLOCK 2 OF 2 Right 05/22/2018 Performed by Parish Wren MD at [facility] RIGHT L3/4, 4/5, 51 MEDIAL BRANCH NERVE BLOCK 1 OF 2 Right 05/08/2018 Performed by Parish Wren MD at [facility] TOTAL SHOULDER REPLACEMENT Right 2021 Allergies [...] Resource Strain: Low Risk (09/29/2023) [facility] Overall Financial Resource Strain (CARDIA) Difficulty of Paying Living Expenses: Not hard at all Food Insecurity: No Food Insecurity (11/13/2024) Hunger Screening Food Insecurity - Worry: Never True Food Insecurity - Inability: Never True Transportation Needs: No Transportation Needs (09/29/2023) Received from [facility] PRAPARE - Transportation Lack of Transportation (Medical): No Lack of Transportation (Non-Medical): No Physical Activity: Inactive (09/29/2023) Received from [facility] Exercise Vital Sign Days of Exercise per Week: 0 days Minutes of Exercise per Session: 0 min Stress: Stress Concern Present (09/29/2023) Received from [facility] [place] of Occupational Health - Occupational Stress Questionnaire Feeling of Stress : To some extent Social Connections: Moderately Integrated (09/29/2023) Received from [facility] Social Connection and Isolation Panel [NHANES] Frequency of Communication with Friends and Family: Twice a week Frequency of Social Gatherings with Friends and Family: Once a week Attends Restorationism Services: Never Active Member of Clubs or Organizations: Yes Attends Club or Organization Meetings: 1 to 4 times per year Marital Status: Interpersonal Safety: Not At Risk (09/29/2023) Received from [facility] Humiliation, Afraid, Rape, and Kick questionnaire Fear of Current or Ex-Partner: No Emotionally Abused: No Physically Abused: No Sexually Abused: No Housing Instability: Low Risk (09/29/2023) Received from [facility] Housing Stability Vital Sign Unable to [...] during discussion, demonstrated appropriate cognitive reasoning and understandingof the medical condition by asking appropriate questions [...] the previous injection and the benefit has continuedthrough this visit. At this time, we will monitor the patient s symptoms from an interventional standpoint and consider another injection in the future if the patient s symptoms return or intensify severely. The patient was made aware that they should call if symptoms worsen or if their pain beginsto have a negative impact on their quality of life and activities of daily living again. Prescribed medication that requires intensive monitoring for toxicity: We do not currently prescribe any controlled substance from this practice. The spine model was demonstrated and MRI was reviewed and used to explain the condition. OARRS: Reviewed. Follow up as needed. Scribe Statement: Tawanna Kauffman RN, scribed for and in the presence of DANIELE KHAN who performed the above service. Tawanna Tipton RN 11/13/24 [id number] DANIELE Khan 11/13/24 1878 [facility] History of Present illness Narrative* Shavonne Chowdary, [employer] - 10/29/2024 1:40 PM EDT Images from the original note were not [...] aneurysm without rupture, unspecified portion of aorta ([facility]) 09/28/2023 Benign hypertension ([facility]) 09/28/2023 BPH associated with nocturia 09/28/2023 COVID-19 virus infection Diverticulitis DJD of right shoulder Erectile dysfunction of organic origin SCOT (generalized anxiety disorder) ([facility]) 08/18/2023 High cholesterol ([facility]) 09/28/2023 Insomnia Mild persistent asthma with exacerbation ([facility]) 09/28/2023 Controlled with singulair. Does not need rescue inhaler Morbid obesity with body mass index (BMI) of 40.0 to 44.9 in adult ([facility]) 09/28/2023 SALVATORE on CPAP 09/28/2023 Osteoarthritis 09/28/2023 [...] 09/28/2023 Spinal stenosis, lumbar 06/12/2014 Tortuous aorta ([facility]) 09/28/2023 Ventral hernia 09/28/2023 3.9) ; Has [...] contraindicated). Limit sodas, juices, and sugary drinks. * Shavonne Chowdary NP - 10/29/2024 6:48 AM EDTAssociated Problem(s): Morbid (severe) obesity due to excess calories (CMS/HCC) Discussed with patient their BMI (actual, verses recommended). We have also discussed lifestyle modifications: attempts to perform physical activity as chronic conditions allow, also to monitor dietary intake: increasing protein/fruits/veggies and lowering carb intake (unless contraindicated). Limit sodas, juices, and sugary drinks. * Shavonne Chowdary NP - 10/29/2024 6:48 AM EDTAssociated Problem(s): Lumbosacral spondylosis without myelopathy Was last seen for this condition by me approx 1 month ago He is also under the care of Ly Hernandez'jeannette javed mgmt Had RFA procedure 10/19/24 He is improving, but not enough to RTW no restrictions, we will extend off work note until and including 11/18/24, with an estimated RTW date 11/19/24 I will see him either 11/14 or 11/15/24 for final decision * Shavonne Chowdary NP - 10/29/2024 6:47 AM EDTAssociated Problem(s): Benign hypertension (CMS/HCC) Please check blood pressure daily and record DASH diet Limit caffeine Take medication as directed Contact office if chest pain, pressure, dizziness, shortness of breath, swelling legs Recommend slow position changes Current meds: lisinopril/HCTZ documented in this [facility]03-10-2025 Instructions* Patient Instructions* Shavonne Chowdary NP - 10/29/2024 1:40 PM EDT Remain off work until and including 11/18/24, with est RTW date 11/19/24 Cont with pain mgmt as well documented in this encounterNortheast [facility] [id number] Hospital Discharge instructions Patient Education 10/08/2024 11:10:38 [...] older. This is the main cause of thiscondition. Use of medicines, such as antidepressants, steroids, [...] therapy. Follow these instructions at home: Take rehu-dvo-pqsmhme and prescription medicines only as told by [...] for prostate cancer before putting you on testosteronetherapy. This information is not intended to replace advice given to you by your health care provider. Make sure you discuss any questions you have with your health care provider. Document Revised: 04/09/2021 Document Reviewed: 04/09/2021 [employer] Patient Education 2023 [employer]. Follow Up Care 09/04/2024 11:28:28 With:RENETTA Watts APRN, CHUNG Mckeon, URL Address: When: Unknown [facility] Carlos 02-17-2025 NotePatient Education Urology Hypogonadism, Male Male hypogonadism is [...] Follow these instructions at home: ??? Take chou-onl-ktdhoyv and prescription medicines only as told by your health care provider. ??? Eat foods that are high in fiber, such as beans, whole grains, and fresh fruits and vegetables.Limit foods that are high in fat and [...] sure you discuss any (more content not included)...[facility]02-11-2025 History of Present illness Narrative* DANIELE Khan - 10/02/2024 11:15 AM EST [facility] [address] [place] [address] Patient: Marcel Luna [place] Sex: male : 1965 Age: 59 y.o. [...] x 5 hours 10/29/22 Apollo L 4/5 5/ MBB w/100% relief for 1 day 03/04/2023 [...] is described as aching and stabbing (sharp). Thepain does not radiate. Pain scale: 8/10 currently [...] has tried NSAIDs, muscle relaxant, chiropractic manipulation andhome exercises (flexeril mod relief, IBU, etodolac- no [...] 10/29/2022 Performed by Parish Wren MD at [facility] INJECTION BLOCK NERVE MEDIAL BRANCH: bilat L 4/5 5/1 Bilateral 09/24/2022 Performed by Parish Wren MD at [facility] KNEE ARTHROSCOPY Right RADIOFREQUENCY ABLATION SPINAL: right L 4/5 5/ Right 03/04/2023 Performed by Parish Wren MD at [facility] RIGHT L3/4, 4/5, 5/1 MEDIAL BRANCH NERVE BLOCK 2 OF 2 Right 05/22/2018 Performed by Parish Wren MD at [facility] RIGHT L3/4, 4/5, 51 MEDIAL BRANCH NERVE BLOCK 1 OF 2 Right 05/08/2018 Performed by Parish Wren MD at [facility] TOTAL SHOULDER REPLACEMENT Right 2021 Allergies [...] Resource Strain: Low Risk (09/29/2023) [facility] Overall Financial Resource Strain (CARDIA) Difficulty of Paying Living Expenses: Not hard at all Food Insecurity: No Food Insecurity (10/02/2024) Hunger Screening Food Insecurity - Worry: Never True Food Insecurity - Inability: Never True Transportation Needs: No Transportation Needs (09/29/2023) Received from [facility] PRAPARE - Transportation Lack of Transportation (Medical): No Lack of Transportation (Non-Medical): No Physical Activity: Inactive (09/29/2023) Received from [facility] Exercise Vital Sign Days of Exercise per Week: 0 days Minutes of Exercise per Session: 0 min Stress: Stress Concern Present (09/29/2023) Received from [facility] [place] [facility] Occupational [employer] - Occupational Stress Questionnaire Feeling of Stress : To some extent Social Connections: Moderately Integrated (09/29/2023) Received from [facility] Social Connection and Isolation Panel [NHANES] Frequency of Communication with Friends and Family: Twice a week Frequency of Social Gatherings with Friends and Family: Once a week Attends Restorationism Services: Never Active Member of Clubs or Organizations: Yes Attends Club or Organization Meetings: 1 to 4 times per year Marital Status: Interpersonal Safety: Not At Risk (09/29/2023) Received from [facility] Humiliation, Afraid, Rape, and Kick questionnaire Fear of Current or Ex-Partner: No Emotionally Abused: No Physically Abused: No Sexually Abused: No Housing Instability: Low Risk (09/29/2023) Received from [facility] Housing Stability Vital Sign Unable to [...] during discussion, demonstrated appropriate cognitive reasoning and understandingof the medical condition by asking appropriate questions [...] procedure was described in detail to the patientas well as the potential benefits of pain [...] with application of heat and over the counterpain relievers. Follow up 4 weeks after procedure [...] monitoring for toxicity We do not currently prescribeany controlled substance from this practice. It is noted that the patient did have good response from the previously performed procedure. It is felt that the patient would benefit from an additional procedure of the same nature in that the samesymptoms have returned. It is hopeful that this [...] Consideration will also be given to procedure safetyin that sedation is used in the outpatient setting for any planned procedure. These records will beavailable to the anesthesiologist to tailor a safe [...] who performed the above service. Provider Statement: SATYA Kauffman PA, personally performed the services described in the documentation, as scribed by Shavonne Galvez CNA in my presence, and it is both accurate and complete. Shavonne Galvez CNA 10/02/24 1141 DANIELE Khan 10/02/24 1201 documented in this encounterFayette County Memorial HospitalLove [facility] [id number] Instructions* Patient Instructions* Shavonne Galvez CNA - 10/02/2024 11:15 AM EST Radiofrequency Ablation (RFA) Radiofrequency ablation (or RFA) is a procedure used to reduce pain. An electrical current producedby a radio wave is used to heat up a small area of nerve tissue, thereby decreasing pain signals from that specific area. Which Conditions Are Treated With Radiofrequency Ablation? RFA can be used to help patients with chronic (long-lasting) back and neck pain and pain related tothe degeneration of joints from arthritis. How Long Does Pain Relief from Radiofrequency Ablation Last? The degree of pain relief varies, depending on the cause and location of the pain. Pain relief fromRFA can last from six to 12 months [...] take you to the nearest emergency room. Tellthe emergency room staff that you just had [...] it back to normal. documented in this encounterGifford Medical CenterStudio [id number] History of Present illness Narrative* Shavonne Chowdary NP - 10/01/2024 4:02 PM ESTAssociated Problem(s): Lumbosacral spondylosis without myelopathy Acute exacerbation of chronic lumbar back pain Pain mgmt tomorrow Off work note given: is requesting 1 month off, so he can see pain mgmt, likely will need injections, which he said will take time, also they do not do off work notes Requests steroids: 5 day Ice to affected area * Shavonne Chowdary NP - 10/01/2024 4:01 PM ESTAssociated Problem(s): Morbid (severe) obesity due to excess calories (CMS/[facility]) Discussed with patient their BMI (actual, verses recommended). We have also discussed lifestyle modifications: attempts to perform physical activity as chronic conditions allow, also to monitor dietary intake: increasing protein/fruits/veggies and lowering carb intake (unless contraindicated). Limit sodas, juices, and sugary drinks. * FRANKLIN PANIAGUA - 10/01/2024 3:20 PM EST Pt states that the back pain started [...] Pt does use the nabumetone 1000mg BID * Shavonne Chowdary NP - 10/01/2024 3:20 PM EST Images from the original note were not [...] aneurysm without rupture, unspecified portion of aorta ([facility]) 09/28/2023 Benign hypertension ([facility]) 09/28/2023 BPH associated with nocturia 09/28/2023 COVID-19 virus infection Diverticulitis DJD of right shoulder Erectile dysfunction of organic origin SCOT (generalized anxiety disorder) ([facility]) 08/18/2023 High cholesterol ([facility]) 09/28/2023 Insomnia Mild persistent asthma with exacerbation ([facility]) 09/28/2023 Controlled with singulair. Does not need rescue inhaler Morbid obesity with body mass index (BMI) of 40.0 to 44.9 in adult ([facility]) 09/28/2023 SALVATORE on CPAP 09/28/2023 Osteoarthritis 09/28/2023 [...] 09/28/2023 Spinal stenosis, lumbar 06/12/2014 Tortuous aorta ([facility]) 09/28/2023 Ventral hernia 09/28/2023 3.9) ; Has [...] juices, and sugary drinks. documented in this [facility]02-10-2025 Instructions* Patient Instructions* Shavonne Chowdary NP - 10/01/2024 3:20 PM EST Off work note given Finish steroids take with food documented in this [facility]02-04-2025 History of Present illness Narrative* Shavonne Chowdary NP - 09/25/2024 4:47 PM ESTAssociated Problem(s): COVID Sxs have resolved No acute dyspnea, fatigue, or wheeze or cough No fever * Shavonne Chowdary NP - 09/25/2024 3:20 PM EST Images from the original note were not [...] PRN amitriptyline (ELAVIL) 50 mg, Oral, Nightly Uhhtloe-Kfxvcbzlkri-Dytqfdjioj (Breztri Aerosphere) 160-9-4.8 MCG/ACT aerosol 2 puffs, [...] aneurysm without rupture, unspecified portion of aorta ([facility]) 09/28/2023 Benign hypertension ([facility]) 09/28/2023 BPH associated with nocturia 09/28/2023 COVID-19 virus infection Diverticulitis DJD of right shoulder Erectile dysfunction of organic origin SCOT (generalized anxiety disorder) ([facility]) 08/18/2023 High cholesterol ([facility]) 09/28/2023 Insomnia Mild persistent asthma with exacerbation ([facility]) 09/28/2023 Controlled with singulair. Does not need rescue inhaler Morbid obesity with body mass index (BMI) of 40.0 to 44.9 in adult ([facility]) 09/28/2023 SALVATORE on CPAP 09/28/2023 Osteoarthritis 09/28/2023 [...] 09/28/2023 Spinal stenosis, lumbar 06/12/2014 Tortuous aorta ([facility]) 09/28/2023 Ventral hernia 09/28/2023 3.9) ; Has [...] fatigue, or wheeze or cough No fever * Shavonne Chowdary NP - 09/25/2024 7:28 AM ESTAssociated Problem(s): COPD with exacerbation (CMS/HCC) Last visit was ordered cxr, nova meraz Ultimately did test +covid Here today: Doing well, finished atb, no longer using breztri RTW no restrictions on 09/26/24 * Shavonne Chowdary NP - 09/25/2024 7:27 AM ESTAssociated Problem(s): COPD mixed type (CMS/HCC) Current meds; albuterol, breztri, singulair Pt has stopped breztri, did not feel he needed it. We did speak for approx 5-7 minutes about his COPD dx. He is able to ride stationary bike for 30 minutes with no acute dyspnea, normally does not have an acute cough, wheeze or dyspnea * Shavonne Chowdary NP - 09/25/2024 7:26 AM ESTAssociated Problem(s): Morbid (severe) obesity due to excess calories (CMS/HCC) Discussed with patient their BMI (actual, verses recommended). We have also discussed lifestyle modifications: attempts to perform physical activity as chronic conditions allow, also to monitor dietary intake: increasing protein/fruits/veggies and lowering carb intake (unless contraindicated). Limit sodas, juices, and sugary drinks. documented in this encounterNortheast Regional Medical [id number] Instructions* Patient Instructions* Shavonne Chowdary NP - 09/25/2024 3:20 PM EST RTW 09/26/24 documented in this encounterNortheast Regional Medical [id number] History of Present illness Narrative* Shavonne Chowdary NP - 09/13/2024 10:38 AM ESTAssociated Problem(s): COPD with exacerbation ([facility]) Was getting better, then worse over weekend, fever too Will order new atb, nebs, and chest xray Fluids, rest, off work til 09/25/24 Go to ER if worsening sxs Outside of window to test flu/covid/RSV as it will not change treatment plan * FRANKLIN PANIAGUA - 09/13/2024 9:40 AM EST Pt thought he was better over the weekend, Tuesday night he had stopped coughing up mucus however hespiked a fever Tuesday night with a fever of 102F he had for three days finally broke last night andhad started coughing up mucus again. He feels weak and fatigue. States his legs feel like rubber and has headaches Pt is asking for a nebulizer machine he believes his insurance will cover it * Shavonne Chowdary NP - 09/13/2024 9:40 AM EST Images from the original note were not included. Marcel Wahl is a 59 y.o. male presents with chief complaint of Letter for School/Work HPI: Fu for URI and lumbar back pain: Last appt given steroids, doxy, and cough meds Pt thought he was better over the weekend, Tuesday night he had stopped coughing up mucus however hespiked a fever Tuesday night with a fever of 102F he had for three days finally broke last night andhad started coughing up mucus again. He feels [...] PRN amitriptyline (ELAVIL) 50 mg, Oral, Nightly Jcaeswe-Dprljbzjhvz-Tpbelggknm (Breztri Aerosphere) 160-9-4.8 MCG/ACT aerosol 2 puffs, [...] aneurysm without rupture, unspecified portion of aorta ([facility]) 09/28/2023 Benign hypertension ([facility]) 09/28/2023 BPH associated with nocturia 09/28/2023 COVID-19 virus infection Diverticulitis DJD of right shoulder Erectile dysfunction of organic origin SCOT (generalized anxiety disorder) ([facility]) 08/18/2023 High cholesterol ([facility]) 09/28/2023 Insomnia Mild persistent asthma with exacerbation ([facility]) 09/28/2023 Controlled with singulair. Does not need rescue inhaler Morbid obesity with body mass index (BMI) of 40.0 to 44.9 in adult ([facility]) 09/28/2023 SALVATORE on CPAP 09/28/2023 Osteoarthritis 09/28/2023 [...] 09/28/2023 Spinal stenosis, lumbar 06/12/2014 Tortuous aorta ([facility]) 09/28/2023 Ventral hernia 09/28/2023 3.9) ; Has [...] Medications albuterol (2.5 MG/3ML) 0.083% nebulizer solution Ucmzqoi-Ttstsrkdtsb-Pxzsjimequ (Breztri Aerosphere) 160-9-4.8 MCG/ACT aerosol Other Relevant [...] Wheezing Relevant Orders XR chest 2 views * Shavonne Chowdary NP - 09/13/2024 6:15 AM ESTAssociated Problem(s): Lumbosacral spondylosis without myelopathy At last office visit, he was treated for URI, severe cough, that caused an increase in his lumbar back pain, was taken off work for 2 weeks d/t this... that is getting back to baseline * Shavonne Chowdary NP - 09/13/2024 6:13 AM ESTAssociated Problem(s): Morbid (severe) obesity due to excess calories (CMS/HCC) Discussed with patient their BMI (actual, verses recommended). We have also discussed lifestyle modifications: attempts to perform physical activity as chronic conditions allow, also to monitor dietary intake: increasing protein/fruits/veggies and lowering carb intake (unless contraindicated). Limit sodas, juices, and sugary drinks. documented in this encounterNortheast Regional Medical [id number] Instructions* Patient Instructions* Shavonne Chowdary NP - 09/13/2024 9:40 AM EST New atb: levaquin daily for 7 days, add nebulizer every 6 hours as needed Chest xray today please New inhaler: breztri 2 puffs every 12 hours, rinse mouth after use: take twice a day Off work unitl 09/25/24 Go to ER if worsening in symptoms documented in this [facility]01-15-2025 History of Present illness Narrative* Shavonne Chowdary NP - 09/05/2024 3:02 PM ESTAssociated Problem(s): Lumbosacral spondylosis without myelopathy Off work for 2 weeks, and wants refill of elavil Steroids should help * Shavonne Chowdary NP - 09/05/2024 3:01 PM ESTAssociated Problem(s): URI (upper respiratory infection) Fluids, rest, atb, steroids, and tessalon pearles * FRANKLIN PANIAGUA - 09/05/2024 2:20 PM EST Pt has had congestion, headache, sob, tightness in the chest, wheezing, hard time breathing, coughing, tweaked/pulled back right/lower side, foggy, runny nose, fevers since Tuesday, hot and cold, nausea that comes and goes. Started last week Pt has been using inhaler Pt started taking the amitriptyline again since back started hurting. May need refills * Shavonne Chowdary NP - 09/05/2024 2:20 PM EST Images from the original note were not [...] aneurysm without rupture, unspecified portion of aorta ([facility]) 09/28/2023 Benign hypertension ([facility]) 09/28/2023 BPH associated with nocturia 09/28/2023 COVID-19 virus infection Diverticulitis DJD of right shoulder Erectile dysfunction of organic origin SCOT (generalized anxiety disorder) ([facility]) 08/18/2023 High cholesterol ([facility]) 09/28/2023 Insomnia Mild persistent asthma with exacerbation ([facility]) 09/28/2023 Controlled with singulair. Does not need rescue inhaler Morbid obesity with body mass index (BMI) of 40.0 to 44.9 in adult ([facility]) 09/28/2023 SALVATORE on CPAP 09/28/2023 Osteoarthritis 09/28/2023 [...] (CMS/HCC) Relevant Medications lisinopril-hydroCHLOROthiazide 10-12.5 MG tablet * Shavonne Chowdary NP - 09/05/2024 6:45 AM ESTAssociated Problem(s): Benign hypertension (CMS/HCC) Please check blood pressure daily and record DASH diet Limit caffeine Take medication as directed Contact office if chest pain, pressure, dizziness, shortness of breath, swelling legs Recommend slow position changes Current meds: lisinopril/HCTZ documented in this encounterNortheast Regional Medical [id number] Instructions* Patient Instructions* Shavonne Chowdary NP - 09/05/2024 2:20 PM EST Atb, steroids, tessalon pearls for cough, come back if not better Refilled amitriptyline at 50mg Steroids should help with back too Off work given documented in this encounterNortheast Regional Medical [id number] Evaluation + Plan note Diagnostic Tests Pending * Testosterone Level Total 06/26/24 [facility] 11-05-2024 History of Present illness Narrative* Shavonne Chowdary NP - 06/26/2024 9:59 AM ESTAssociated Problem(s): Ventral hernia Advised of red flags to go to ER for No symptoms at this time * Shavonne Chowdary NP - 06/26/2024 9:52 AM ESTAssociated Problem(s): SCOT (generalized anxiety disorder) ([facility]) Continues with taking buspar BID, helps with symptoms No adjustments needed at this time No SI/HI/Hallucinations * FRANKLIN PANIAGUA - 06/26/2024 9:20 AM EST Pt is on testosterone therapy now, start 1 1/2-2 months * Shavonne Chowdary NP - 06/26/2024 9:20 AM EST Images from the original note were not [...] male gender and obesity. Past treatments include TESS inhibitors and diuretics. The current treatment provides [...] aneurysm without rupture, unspecified portion of aorta ([facility]) 09/28/2023 Benign hypertension ([facility]) 09/28/2023 BPH associated with nocturia 09/28/2023 COVID-19 virus infection Diverticulitis DJD of right shoulder Erectile dysfunction of organic origin SCOT (generalized anxiety disorder) ([facility]) 08/18/2023 High cholesterol ([facility]) 09/28/2023 Insomnia Mild persistent asthma with exacerbation ([facility]) 09/28/2023 Controlled with singulair. Does not need rescue inhaler Morbid obesity with body mass index (BMI) of 40.0 to 44.9 in adult ([facility]) 09/28/2023 SALVATORE on CPAP 09/28/2023 Osteoarthritis 09/28/2023 [...] 09/28/2023 Spinal stenosis, lumbar 06/12/2014 Tortuous aorta ([facility]) 09/28/2023 Ventral hernia 09/28/2023 3.9) ; Has [...] Addressed This Visit SCOT (generalized anxiety disorder) ([facility]) Continues with taking buspar BID, helps with symptoms No adjustments needed at this time No SI/HI/Hallucinations SALVATORE on CPAP Compliant with PAP Approx hours of use daily: Mild persistent asthma with exacerbation ([facility]) Relevant Medications albuterol HFA 90 mcg/act inhaler Benign hypertension ([facility]) - Primary Please check blood pressure daily and record DASH diet Limit caffeine Take medication as directed Contact office if chest pain, pressure, dizziness, shortness of breath, swelling legs Recommend slow position changes Ventral hernia Advised of red flags to go to ER for No symptoms at this time Morbid obesity with body mass index (BMI) of 40.0 to 44.9 in adult ([facility]) Discussed with patient their BMI (actual, verses recommended). We have also discussed lifestyle modifications: attempts to perform physical activity as chronic conditions allow, also to monitor dietary intake: increasing protein/fruits/veggies and lowering carb intake (unless contraindicated). Limit sodas, juices, and sugary drinks. Needs flu shot Relevant Orders Flu vaccine, MDCK, quadrivalent, PF ([id number]) (Flucelvax single dose syringe) (Completed) * Shavonne Chowdary NP - 06/26/2024 6:20 AM ESTAssociated Problem(s): Morbid obesity with body mass index (BMI) of 40.0 to 44.9 in adult ([facility]) Discussed with patient their BMI (actual, verses recommended). We have also discussed lifestyle modifications: attempts to perform physical activity as chronic conditions allow, also to monitor dietary intake: increasing protein/fruits/veggies and lowering carb intake (unless contraindicated). Limit sodas, juices, and sugary drinks. * Shavonne Chowdary NP - 06/26/2024 6:20 AM ESTAssociated Problem(s): Benign hypertension ([facility]) Please check blood pressure daily and record DASH diet Limit caffeine Take medication as directed Contact office if chest pain, pressure, dizziness, shortness of breath, swelling legs Recommend slow position changes * Shavonne Chowdary NP - 06/26/2024 6:19 AM ESTAssociated Problem(s): SALVATORE on CPAP Compliant with PAP Approx hours of use daily: documented in this encounterNortheast Regional Medical [id number] Hospital Discharge instructions Patient Education 02/21/2024 12:25:41 [...] older. This is the main cause of thiscondition. Use of medicines, such as antidepressants, steroids, [...] therapy. Follow these instructions at home: Take wlfh-xnj-sxsmfhd and prescription medicines only as told by [...] for prostate cancer before putting you on testosteronetherapy. This information is not intended to replace advice given to you by your health care provider. Make sure you discuss any questions you have with your health care provider. Document Revised: 04/09/2021 Document Reviewed: 04/09/2021 [employer] Patient Education 20[employer]. 02/21/2024 12:25:41 Benign Prostatic Hyperplasia Benign Prostatic Hyperplasia Benign prostatic hyperplasia (BPH) is an enlarged prostate gland that is caused by the normal agingprocess. The prostate may get bigger as a man gets older. The condition is not caused by cancer. The prostate is a walnut-sized gland that is involved in the production of semen. It is located in front of the rectum and below the bladder. The bladder stores urine. The urethra carries stored urine ou t of the body. An enlarged prostate can press on the urethra. This can make it harder to pass urine. The buildup of urine in the bladder can cause infection. Back pressure and infection may progress to bladder damage and kidney (renal) failure. What are the causes? This condition is part of the normal aging process. However, not all men develop problems from thiscondition. If the prostate enlarges away from the [...] urethra. Follow these instructions at home: Take khwn-ipe-qdaapmt and prescription medicines only as told by [...] provider. Document Revised: 02/24/2022 Document Reviewed: 02/24/2022 [employer] Patient Education 20[employer]. 02/21/2024 12:25:39 Erectile Dysfunction Erectile Dysfunction Erectile dysfunction (ED) is the inability to get or keep an erection in order to have sexual intercourse. ED is considered a symptom of an underlying disorder and is not considered a disease. ED mayinclude: Inability to get an erection. Lack of [...] back or pelvic injuries, multiple sclerosis, Parkinson's disease,spinal cord injury, and stroke. Certain medicines, such [...] or the penis may be too curved toallow for intercourse. Never having nighttime or morning [...] penis. During this procedure, a blood vessel froma different part of the body is placed into the penis to allow blood to flow around (bypass) damaged or blocked blood vessels. Lifestyle changes, such as exercising more, losing weight, and quitting smoking. Follow these instructions at home: Medicines Take czaz-bmy-axjzass and prescription medicines only as told by your health care provider. Do not increase the dosage without first discussing it with your health care provider. If you are using self-injections, do injections as directed by your health care provider. Make sureyou avoid any veins that are on the surface of the penis. After giving an injection, apply pressureto the injection site for 5 minutes. Talk [...] you need help quitting, ask your health careprovider. Before using a vacuum pump, read the instructions that come with the pump and discuss any questionswith your health care provider. Keep all follow-up [...] provider. Document Revised: 11/04/2021 Document Reviewed: 11/04/2021 [employer] Patient Education [employer]. Follow Up Care 02/01/2024 11:50:53 With:Javier HERRING MD, URL Address: [address] [place] [phone]- When: Unknown Comments:Cystoscopy [facility] 07-02-2024 Evaluation + Plan note Diagnostic Tests Pending * Testosterone Level Total 02/21/24 [facility] 04-15-2024 Hospital Discharge instructions Follow Up Care 12/05/2023 15:08:17 With:Javier HERRING MD, URL Address: [facility] [address] [place] [address] [phone] When: Unknown [facility] 04-15-2024 Hospital Discharge instructions Patient Education 12/05/2023 14:52:01 Erectile Dysfunction Erectile Dysfunction Erectile dysfunction (ED) is the inability to get or keep an erection in order to have sexual intercourse. ED is considered a symptom of an underlying disorder and is not considered a disease. ED mayinclude: Inability to get an erection. Lack of [...] back or pelvic injuries, multiple sclerosis, Parkinson's disease,spinal cord injury, and stroke. Certain medicines, such [...] or the penis may be too curved toallow for intercourse. Never having nighttime or morning [...] penis. During this procedure, a blood vessel froma different part of the body is placed into the penis to allow blood to flow around (bypass) damaged or blocked blood vessels. Lifestyle changes, such as exercising more, losing weight, and quitting smoking. Follow these instructions at home: Medicines Take ccay-ded-ybivprz and prescription medicines only as told by your health care provider. Do not increase the dosage without first discussing it with your health care provider. If you are using self-injections, do injections as directed by your health care provider. Make sureyou avoid any veins that are on the surface of the penis. After giving an injection, apply pressureto the injection site for 5 minutes. Talk [...] you need help quitting, ask your health careprovider. Before using a vacuum pump, read the instructions that come with the pump and discuss any questionswith your health care provider. Keep all follow-up [...] provider. Document Revised: 11/04/2021 Document Reviewed: 11/04/2021 [employer] Patient Education [employer]. Follow Up Care 09/27/2023 10:13:00 With:NEVAEH HARKINS, Javier Jones, URL Address: [facility] [address], [place] [address]- [phone] When: Unknown Comments:f/u for [facility] teaching [facility] 02-08-2024 History of Present illness Narrative* Shavonne Chowdary NP - 09/29/2023 1:36 PM ESTAssociated Problem(s): Lung nodule Being referred to pulmonogist * Shavonne Chowdary NP - 09/29/2023 1:31 PM ESTAssociated Problem(s): Pre-diabetes Check labs * Shavonne Chowdary NP - 09/29/2023 1:30 PM ESTAssociated Problem(s): Mild persistent asthma with exacerbation (CMS/HCC) Does not use rescue inhaler, sxs are controlled with singulair * Shavonne Chowdary NP - 09/29/2023 1:30 PM ESTAssociated Problem(s): SALVATORE on CPAP Wears PAP at least 8 hours daily * Shavonne Chowdary NP - 09/29/2023 1:22 PM ESTAssociated Problem(s): Aortic aneurysm without rupture, unspecified portion of aorta (CMS/HCC) Saw vascular people will continue to have this monitored * Shavonne Chowdary NP - 09/29/2023 1:22 PM ESTAssociated Problem(s): Benign hypertension (CMS/HCC) No changes in dose of meds at this time * Shavonne Chowdary NP - 09/29/2023 1:00 PM EST Images from the original note were not included. Marcel Wahl is a 58 y.o. male presents with chief complaint of No chief complaint on file. HPI: Sleep apnea: wears PAP 8 hours Saw vascular: will monitor aneurysm Incidental findings: nodule , is going to see a fiberglass boat maker, hx of 50 pack year smoking, quit [...] obesity and sedentary lifestyle. Past treatments include TESS inhibitors anddiuretics. The current treatment provides significant improvement. SUBJECTIVE: MEDICATIONS: Current Outpatient Medications Medication Instructions amitriptyline (Elavil) 50 MG tablet 1 tablet, Oral, Nightly busPIRone (BUSPAR) 10 mg, Oral, 2 times daily cyclobenzaprine (Flexeril) 10 MG tablet 1 tablet, Oral, 2 times daily PRN fluticasone (Flonase) 50 MCG/ACT nasal spray 2 sprays, Each Nostril, Daily HYDROcodone-acetaminophen ([place]) 5-325 MG tablet 1 tablet, Oral, Every [...] aneurysm without rupture, unspecified portion of aorta ([facility]) 09/28/2023 Benign hypertension ([facility]) 09/28/2023 BPH associated with nocturia 09/28/2023 COVID-19 virus infection Diverticulitis DJD of right shoulder Erectile dysfunction of organic origin SCOT (generalized anxiety disorder) ([facility]) 08/18/2023 High cholesterol ([facility]) 09/28/2023 Insomnia Mild persistent asthma with exacerbation ([facility]) 09/28/2023 Controlled with singulair. Does not need rescue inhaler Morbid obesity with body mass index (BMI) of 40.0 to 44.9 in adult ([facility]) 09/28/2023 SALVATORE on CPAP 09/28/2023 Osteoarthritis 09/28/2023 [...] 09/28/2023 Spinal stenosis, lumbar 09/28/2023 Tortuous aorta ([facility]) 09/28/2023 Ventral hernia 09/28/2023 3.9) ; Has [...] hours daily Mild persistent asthma with exacerbation ([facility]/HCC) Does not use rescue inhaler, sxs are controlled with singulair Benign hypertension ([facility]/HCC) - Primary No changes in dose of meds at this time Relevant Orders CBC and differential Microalbumin / creatinine, urine ratio Urinalysis with reflex microscopic (clean catch) Aortic aneurysm without rupture, unspecified portion of aorta (CMS/HCC) Saw vascular people will continue to have this monitored High cholesterol ([facility]/HCC) Relevant Orders Lipid panel Screening for prostate cancer Relevant Orders PSA Pre-diabetes Check labs Relevant Orders Comprehensive metabolic panel Hemoglobin A1c Microalbumin / creatinine, urine ratio Urinalysis with reflex microscopic (clean catch) Lung nodule Being referred to pulmonogist Other Visit Diagnoses Morbid (severe) obesity due to excess calories (E66.01) Body mass index [BMI] 45.0-49.9, adult (Z68.42) documented in this encounterNortheast Regional Medical [id number] Miscellaneous Notes* Telephone Encounter - Oksana Spear RN - 05/04/2023 5:22 PM EDT I have called and discussed with Marcel Brown recommendations which are there is no indication for surgery. He should continue to follow up with his director peoplesoft with yearly echo and CTA when aortaenlarged close to 5 cm. Also, blood pressure control is essential to keep aorta size stable. He verbalized understanding Oksana Spear RN diagnosis: aorta 4.1 cm on echo history: obesity, chronic back pain, anxiety, asthma, HTN, SALVATORE, * Telephone Encounter - Susan Simon - 05/04/2023 2:44 PM EDT Patient has been communicating via Dr. Shaikh Liang's office. Ros[place] nurse [phone] Diagnosis: aneurysm All records are in Epic * Telephone Encounter - Susan Simon - 04/21/2023 2:26 PM EDT Left a VM. Need: explain the process and let patient know that I am in contact with his Dr's office trying to get all his records. Currently waiting for CT images. [facility] Discharge instructions Patient Education 03/28/2023 12:16:23 Erectile Dysfunction Erectile Dysfunction Erectile dysfunction (ED) is the inability to get or keep an erection in order to have sexual intercourse. ED is considered a symptom of an underlying disorder and is not considered a disease. ED mayinclude: Inability to get an erection. Lack of [...] back or pelvic injuries, multiple sclerosis, Parkinson's disease,spinal cord injury, and stroke. Certain medicines, such [...] or the penis may be too curved toallow for intercourse. Never having nighttime or morning [...] penis. During this procedure, a blood vessel froma different part of the body is placed into the penis to allow blood to flow around (bypass) damaged or blocked blood vessels. Lifestyle changes, such as exercising more, losing weight, and quitting smoking. Follow these instructions at home: Medicines Take tiug-wvq-glevdkn and prescription medicines only as told by your health care provider. Do not increase the dosage without first discussing it with your health care provider. If you are using self-injections, do injections as directed by your health care provider. Make sureyou avoid any veins that are on the surface of the penis. After giving an injection, apply pressureto the injection site for 5 minutes. Talk [...] you need help quitting, ask your health careprovider. Before using a vacuum pump, read the instructions that come with the pump and discuss any questionswith your health care provider. Keep all follow-up [...] provider. Document Revised: 11/04/2021 Document Reviewed: 11/04/2021 [employer] Patient Education [employer]. Follow Up Care 03/07/2023 10:38:37 With:NEVAEH HARKINS, Javier Jones, URL Address: [facility] [address] [place] [address]- [phone] When:Within 6 Month(s) Comments:T level [facility] [place] 07-17-2023 Hospital Discharge instructions Patient Education 03/07/2023 10:28:28 Renal Mass Renal Mass A renal mass is an abnormal growth in the kidney. It may be found while performing an MRI, CT scan,or ultrasound to evaluate other problems of the abdomen. A renal mass that is cancerous (malignant)may grow or spread quickly. Others are not [...] the cause of your renal mass. These testsmay be done if a renal mass is [...] of the mass. Follow the instructions that yourhealth care provider gives to you. In general: Take cgfi-xui-vqzyswq and prescription medicines only as told by your health care provider. If you were prescribed an antibiotic medicine, take it as told by your health care provider. Do notstop taking the antibiotic even if you start [...] scan, or ultrasound for other problems of theabdomen. Your health care provider may recommend that [...] provider. Document Revised: 02/02/2021 Document Reviewed: 02/02/2021 [employer] Patient Education [employer]. Follow Up Care 02/18/2023 09:13:02 With:NEVAEH HARKINS, Javier Jones, URL Address: [facility] [address] , [place] [address]- [phone] When: Unknown Comments:CT scan and PSA [facility] 05-25-2023 NotePROCEDURE: XR HIP RT 2 3V WO PELVIS HISTORY: Pain in right hip joint ; no known injury COMPARISON: None. FINDINGS: BONES:No fracture, acute abnormality, or significant arthropathy. SOFT TISSUES:No visible soft tissue swelling. EFFUSION:None visible. OTHER: Negative. IMPRESSION: 1. No acute bone abnormality or significant degenerative joint disease. Electronically authenticated by: LISSETTE MCCAIN Date: 2023-01-13 10:45[facility]05-15-2023 Evaluation note* Encounter Date Diagnosis Assessment Notes Treatment Notes Treatment Clinical Notes December, Strain of lumbar region, initial encounter (ICD-10 - S39.012A) Drink plenty fluids, get plenty of rest. Continue home medications as prescribed including the cyclobenzaprine. Take the prednisone as prescribed until gone. Follow-up with your family physician if no improvement in 4 to 5 days. Go to the ER for worsening symptoms or concerns December,Right sided sciatica (ICD-10 - M54.31)Back pain with sciatica home care material was printed [employer] Other 12-07-2022 NotePROCEDURE: XR SHOULDER RT 2V [...] Electronically authenticated by: LISSETTE MCCAIN Date: 2022-07-28 13:47[facility]11-15-2022 NotePROCEDURE: XR ANKLE LT MIN 3 [...] Electronically authenticated by: DARIN CHAPA Date: 2022-07-06 07:39[facility]11-15-2022 NotePROCEDURE: XR ANKLE LT MIN 3 [...] Electronically authenticated by: DARIN CHAPA Date: 2022-07-06 07:39[facility]01-07-2015 Miscellaneous Notes* Telephone Encounter - Coco [...] may contact Orquidea at their home # [phone] with questions/concerns, OK to leave a message [...] on 09/13/14. Patient may be reached at [phone] to advise, it is ok to leave a message if no answer. documented in this encounterC[facility]innati [facility] CenterEvaluation + Plan note Future Appointments Appointment Date:03/28/2023 11:15:00 AM Scheduled Provider:Javier HERRING MD Location:[facility] Appointment Type:URO Office Visit Diagnostic Tests Pending * PSA Total 03/07/23 [facility] evaluation + Plan note Future Appointments Appointment Date:09/26/2023 09:15:00 AM Scheduled Provider:Javier HERRING MD Location:[facility] Appointment Type:URO Office Visit Diagnostic Tests Pending * Testosterone Level Total 03/28/23 [facility] evaluation + Plan note Future Appointments Appointment Date:01/23/2024 11:30:00 AM Scheduled Provider:Javier HERRING MD Location:[facility] Appointment Type:URO Office Visit [facility] evaluation + Plan note Future Appointments Appointment Date:12/06/2024 10:20:00 AM Scheduled Provider:RENETTA Watts APRN, [place] Location:[facility] Appointment Type:URO Office Visit Diagnostic Tests Pending * PSA Total 10/08/24 * Testosterone Level Total 10/08/24 * Hematocrit 10/08/24 [facility] Evaluation + Plan note Future Appointments Appointment Date:07/23/2025 10:20:00 AM Scheduled Provider:RENETTA Watts APRN, [place] Location:[facility] Appointment Type:URO Office Visit [facility] Evaluation note* Diagnosis Benign hypertension (CMS/HCC)- Primary [...] against influenza Mild persistent asthma with exacerbation ([facility]/HCC) Unspecified asthma, with exacerbation SCOT (generalized anxiety disorder) ([facility]) Generalized anxiety disorder Ventral hernia without obstruction or gangrene Unspecified ventral hernia without mention of obstruction or gangrene [facility] Diagnosis Benign hypertension ([facility]/HCC)- Primary Essential hypertension, benign Morbid (severe) obesity due to excess calories (E66.01) Body mass index [BMI] 45.0-49.9, adult (Z68.42) Aortic aneurysm without rupture, unspecified portion of aorta ([facility]/HCC) High cholesterol ([facility]) Pure hypercholesterolemia SCOT (generalized anxiety disorder) ([facility]) Generalized anxiety disorder Screening for prostate cancer Special screening for malignant neoplasm of prostate Pre-diabetes Other abnormal glucose SALVATORE on CPAP Mild persistent asthma with exacerbation ([facility]) Unspecified asthma, with exacerbation Lung nodule Other diseases of lung, not elsewhere classified Lumbosacral spondylosis without myelopathy- Primary Benign hypertension ([facility])- Primary Essential hypertension, benign Morbid obesity with body mass index (BMI) of 40.0 to 44.9 in adult ([facility]/HCC) SALVATORE on CPAP Spinal stenosis of lumbar region with neurogenic claudication Bilateral hand pain Benign hypertension ([facility])- Primary Essential hypertension, benign SALVATORE on CPAP Morbid obesity with body mass index (BMI) of 40.0 to 44.9 in adult ([facility]) Needs flu shot Need for prophylactic vaccination and inoculation against influenza Mild persistent asthma with exacerbation ([facility]) Unspecified asthma, with exacerbation SCOT (generalized anxiety disorder) ([facility]) Generalized anxiety disorder Ventral hernia without obstruction or gangrene Unspecified ventral hernia without mention of obstruction or gangrene Mild intermittent asthma with (acute) exacerbation ([facility]) [facility] Diagnosis Essential (primary) hypertension ([facility]) Unspecified essential hypertension [facility]* Diagnosis Other intervertebral disc degeneration, lumbar region documented [facility]* Diagnosis SCOT (generalized anxiety disorder) ([facility]/HCC) Generalized anxiety disorder Other intervertebral disc degeneration, lumbar region [facility]* Diagnosis Benign hypertension ([facility]/HCC)- Primary Essential hypertension, benign Morbid (severe) obesity [...] spondylosis without myelopathy documented in this encounter [facility]* Diagnosis Benign hypertension (CMS/HCC)- [...] mixed type (CMS/HCC) documented in this encounter [facility]* Diagnosis Benign hypertension (CMS/HCC)- Primary [...] excess calories (CMS/HCC) documented in this encounter [facility]* Diagnosis Lumbosacral spondylosis without myelopathy- Primary Lumbosacral spondylosis without myelopathy- Primary Lumbosacral spondylosis without myelopathy [facility] Diagnosis Benign hypertension (CMS/HCC)- Primary [...] excess calories (CMS/HCC) [facility]* Diagnosis Lumbosacral spondylosis without myelopathy- Primary [facility] Diagnosis Benign hypertension (CMS/HCC)- Primary [...] spondylosis without myelopathy documented in this encounter [facility]* Diagnosis Benign hypertension (CMS/HCC)- [...] Generalized anxiety disorder Lumbosacral spondylosis without myelopathy SCOT (generalized anxiety disorder) (CMS/HCC) Generalized anxiety disorder documented in this encounter [facility]* Diagnosis Benign hypertension (CMS/HCC)- [...] Generalized anxiety disorder Lumbosacral spondylosis without myelopathy Lumbosacral spondylosis without myelopathy documented in this encounter [facility] note* Diagnosis Benign hypertension (CMS/HCC)- [...] Generalized anxiety disorder Lumbosacral spondylosis without myelopathy Mild intermittent asthma with (acute) exacerbation (CMS/HCC) [facility]* Diagnosis Benign hypertension- Primary Essential hypertension, benign Morbid (severe) obesity due to excess calories (E66.01) Body mass index [BMI] 45.0-49.9, adult (Z68.42) Aortic aneurysm without rupture, unspecified portion of aorta High cholesterol Pure hypercholesterolemia SCOT (generalized anxiety disorder) Generalized anxiety disorder Screening for prostate cancer Special screening for malignant neoplasm of prostate Pre-diabetes Other abnormal glucose SALVATORE on CPAP Mild persistent asthma with exacerbation (HCC) Unspecified asthma, with exacerbation Lung nodule Other diseases of lung, not elsewhere classified Lumbosacral spondylosis without myelopathy- Primary Benign hypertension- Primary Essential hypertension, benign Morbid obesity with body mass index (BMI) of 40.0 to 44.9 in adult ([facility]-HCC) SALVATORE on CPAP Spinal stenosis of lumbar region with neurogenic claudication Bilateral hand pain Benign hypertension- Primary Essential hypertension, benign SALVATORE on CPAP Morbid obesity with body mass index (BMI) of 40.0 to 44.9 in adult ([facility]-HCC) Needs flu shot Need for prophylactic vaccination and inoculation against influenza Mild persistent asthma with exacerbation (HCC) Unspecified asthma, with exacerbation SCOT (generalized anxiety disorder) Generalized anxiety disorder Ventral hernia without obstruction or gangrene Unspecified ventral hernia without mention of obstruction or gangrene Upper respiratory tract infection, unspecified type- Primary Morbid (severe) obesity due to excess calories ([facility]-HCC) Body mass index (BMI) 40.0-44.9, adult ([facility]) Benign hypertension Essential hypertension, benign Essential (primary) hypertension Unspecified essential hypertension Lumbosacral spondylosis without myelopathy COPD with exacerbation (HCC)- Primary Body mass index (BMI) 40.0-44.9, adult ([facility]) Morbid (severe) obesity due to excess calories ([facility]-HCC) Lumbosacral spondylosis without myelopathy COPD mixed type (HCC) Wheezing COVID- Primary COPD with exacerbation (HCC) Morbid (severe) obesity due to excess calories ([facility]) Body mass index (BMI) 40.0-44.9, adult ([facility] [facility] COPD mixed type (HCC) Lumbosacral spondylosis without myelopathy- Primary Morbid (severe) obesity due to excess calories ([facility]) Lumbosacral spondylosis without myelopathy- Primary Benign hypertension Essential hypertension, benign Morbid (severe) obesity due to excess calories ([facility]) Benign hypertension- Primary Essential hypertension, benign SALVATORE on CPAP Morbid (severe) obesity due to excess calories ([facility]) SCOT (generalized anxiety disorder) Generalized anxiety disorder Lumbosacral spondylosis without myelopathy Non-seasonal allergic rhinitis, unspecified trigger documented in this encounter [facility] HealthcareEvaluation note* Diagnosis Benign hypertension- Primary Essential hypertension, benign Morbid (severe) obesity due to excess calories (E66.01) Body mass index [BMI] 45.0-49.9, adult (Z68.42) Aortic aneurysm without rupture, unspecified portion of aorta High cholesterol Pure hypercholesterolemia SCOT (generalized anxiety disorder) Generalized anxiety disorder Screening for prostate cancer Special screening for malignant neoplasm of prostate Pre-diabetes Other abnormal glucose SALVATORE on CPAP Mild persistent asthma with exacerbation (HCC) Unspecified asthma, with exacerbation Lung nodule Other diseases of lung, not elsewhere classified Lumbosacral spondylosis without myelopathy- Primary Benign hypertension- Primary Essential hypertension, benign Morbid obesity with body mass index (BMI) of 40.0 to 44.9 in adult ([facility]) SALVATORE on CPAP Spinal stenosis of lumbar region with neurogenic claudication Bilateral hand pain Benign hypertension- Primary Essential hypertension, benign SALVATORE on CPAP Morbid obesity with body mass index (BMI) of 40.0 to 44.9 in adult ([facility]) Needs flu shot Need for prophylactic vaccination and inoculation against influenza Mild persistent asthma with exacerbation (HCC) Unspecified asthma, with exacerbation SCOT (generalized anxiety disorder) Generalized anxiety disorder Ventral hernia without obstruction or gangrene Unspecified ventral hernia without mention of obstruction or gangrene Upper respiratory tract infection, unspecified type- Primary Morbid (severe) obesity due to excess calories ([facility]) Body mass index (BMI) 40.0-44.9, adult ([facility]) Benign hypertension Essential hypertension, benign Essential (primary) hypertension Unspecified essential hypertension Lumbosacral spondylosis without myelopathy COPD with exacerbation (HCC)- Primary Body mass index (BMI) 40.0-44.9, adult ([facility]) Morbid (severe) obesity due to excess calories ([facility]) Lumbosacral spondylosis without myelopathy COPD mixed type (HCC) Wheezing COVID- Primary COPD with exacerbation (HCC) Morbid (severe) obesity due to excess calories ([facility]) Body mass index (BMI) 40.0-44.9, adult ([facility]) COPD mixed type (HCC) Lumbosacral spondylosis without myelopathy- Primary Morbid (severe) obesity due to excess calories ([facility]) Lumbosacral spondylosis without myelopathy- Primary Benign hypertension Essential hypertension, benign Morbid (severe) obesity due to excess calories ([facility]) Benign hypertension- Primary Essential hypertension, benign [place] on CPAP Morbid (severe) obesity due to excess calories ([facility]-HCC) SCOT (generalized anxiety disorder) Generalized anxiety disorder Lumbosacral spondylosis without myelopathy Benign hypertension- Primary Essential hypertension, benign SALVATORE on CPAP Aortic aneurysm without rupture, unspecified portion of aorta Morbid (severe) obesity due to excess calories ([facility]-HCC) Mixed hyperlipidemia Mixed hyperlipidemia Former smoker Personal history of tobacco use, presenting hazards to health Pre-diabetes Other abnormal glucose Essential (primary) hypertension Unspecified essential hypertension SCOT (generalized anxiety disorder) Generalized anxiety disorder Lumbosacral spondylosis without myelopathy documented in this encounter [facility]* Diagnosis Onset Date Resolution Status Admit Date Benign hypertension acuteOctober 2024 2:53pmMorbid (severe) obesity due to excess calories acuteOctober 2024 2:53pm [facility] Work Phone: History general Narrative - Reported* Type Description Date Medical History Osteoarthritis Medical Historycervical radiculopathyMedical HistorydiverticulitisMedical Historyplantar fasciitisMedical HistorySleep apnea, unspecifiedMedical History left side of head injuryMedical HistoryUnspecified abdominal hernia without obstruction or gangreneMedical Historyallergic rhinitisMedical HistoryCOPD Surgical Historyankle [id number] HistoryProcedure:removal of tongue lesion ;Disease:Surgical Historycolon resectionSurgical History Procedure:Testicular hydrocele 2012;Disease:Surgical Historyhydrocele repair Surgical HistoryProcedure:Achilles tendon repair;Disease:2007Surgical History knee arthroscopySurgical HistoryProcedure:sigmoid colon resection;Disease:intestinal [id number] HistoryR knee arthroscopySurgical Historyrt knee surgerySurgical Historyright shoulder [id number]/2022 Hospitalization Historysee aboveHospitalization Historydiverticulitis [facility] Other Hospital course Narrative No data available for this section [facility] Hospital Discharge instructions No data available for this section [facility] InstructionsNot on filedocumented in this encounter [facility] No data available for this section [facility] reason for referral (narrative)No reason for referral information availableTrinity Health System Work Phone: Discharge Instructions * Attachments The following attachments cannot be sent through Care Everywhere. * SOB (Shortness of Breath) (Bengali) documented in this encounter Assessments Diagnosis Dyspnea and respiratory abnormalities Other dyspnea and respiratory abnormality Advance Directives TypeDate RecordedPatient RepresentativeExplanationAdvance Directives and Living WillPower of Pilot Advance Directive Response Recorded Date/ Time Advance Directives No February 14 2:13pm Summary Purpose Family History Relationship Condition Age at Onset Recorded Date/T juana brother Migraine headache Unknown fatherHeart diseaseUnknowngrandparentMalignant neoplasmUnknowngrandparent DeceasedUnknownDiabetes mellitusUnknown Chief Complaint and Reason for Visit Chief Complaint Admit Date Mild Chest Pain June 06, 2025 2 :53pm Reason for Visit Admit Date Benign hypertension June 06, 2025 2 :53pm Morbid (severe) obesity due to excess ca lories June 06, 2025 2:53pm Additional Source Comments Reason for Visit (unrecogniz ed section and content) ReasonCommentsShortness of Breathpt states onset x 3 days. Pt states he was just d/c from [facility] and they told him basically that I was fat and lazy ReasonOnset DateCommentsSurgical Lwqivgyi72/07/2015ReasonCommentsReferral InformationReasonCommentsMed RefillReasonCommentsNasal CongestionReasonComments Letter for School/WorkReasonCommentsCOPDReasonCommentsBack PainReasonComments Back PainReasonCommentsDiabetes (unrecognized sect ion and content) No Status Records FoundNo Status Records FoundNo Status Records FoundNo Status Records FoundNo Status Records FoundNo Status Records FoundNo Status Records FoundNo Status Records Found INFORMATION SOURCE (unrecogn ized section and content) DATE CREATED AUTHOR 03/11/2020 [facility] DATE CREATED AUTHOR AUTHOR'S ORGANIZ ATION 01/28/2023 [facility] DATE CREATED AUTHOR AUTHOR'S ORGANIZ ATION 05/08/2023 [facility] DATE CREATED AUTHOR AUTHOR'S ORGANIZ ATION 09/21/2024 [facility] DATE CREATED AUTHOR AUTHOR'S ORGANIZ ATION 03/20/2025 [facility] DATE CREATED AUTHOR AUTHOR'S ORGANIZ ATION 05/24/2025 [facility] DATE CREATED AUTHOR AUTHOR'S ORGANIZ ATION 05/30/2025 [facility] DATE CREATED AUTHOR AUTHOR'S ORGANIZ ATION 06/01/2025 [facility] Source Comments (unrecognize d section and content) In the event this informatio n is protected by the Federal Confidentiality of Alcohol and Drug Abuse Patient Records regulations: The Federal rules restrict any use of the information to criminally investigate or prosecute any alcohol or drug abuse patient.[facility] CenterIn the event this information is protected by the Federal Confidentiality of Alcohol and Drug Abuse Patient Records regulations: The Federal rules restrict any use of the information to criminally investigate or prosecute any alcohol or drug abuse patient.[facility] Patient Care team informatio n (unrecognized section and content) Team MemberRelationshipSpecialtyStart DateEnd Date Rom Faye Jr. PCP - General02/23/05 Rafael Brown MD [address] [place] [address] SurgeonCardiac Surg9///Team MemberRelationshipSpecialtyStart DateEnd Date Parth Hdz MD PCP - GeneralFamily Medicine02/17/23Team MemberRelationshipSpecialtyStart DateEnd Date Parth Hdz MD PCP - GeneralFamily Medicine02/17/23Team MemberRelationshipSpecialtyStart DateEnd Date Parth Hdz MD [address] [place] [address] PCP - GeneralFamily Medicine02/17/23Team MemberRelationshipSpecialtyStart DateEnd Date Parth Hdz MD [address] [place] [address] PCP - GeneralFamily Medicine02/17/23Team MemberRelationshipSpecialtyStart DateEnd Date Parth Hdz MD [address] [place] [address] PCP - GeneralFamily Medicine02/17/23Team MemberRelationshipSpecialtyStart DateEnd Date Parth Hdz MD [address] [place] [address] PCP - GeneralFamily Medicine02/17/23Team MemberRelationshipSpecialtyStart DateEnd Date Parth Hdz MD [address] [place] [address] PCP - GeneralFamily Medicine02/17/23Team MemberRelationshipSpecialtyStart DateEnd Date Parth Hdz MD [address] [place] [address] PCP - GeneralFamily Medicine02/17/23Team MemberRelationshipSpecialtyStart DateEnd Date Parth Hdz MD [address] [place] [address] PCP - GeneralFamily Medicine02/17/23Team MemberRelationshipSpecialtyStart DateEnd Date Parth Hdz MD [address] [place] [address] PCP - GeneralFamily Medicine02/17/23Team MemberRelationshipSpecialtyStart DateEnd Date Parth Hdz MD [address] [place] [address] PCP - GeneralFamily Medicine02/17/23Team MemberRelationshipSpecialtyStart DateEnd Date Parth Hdz MD [address] [place] [address] PCP - GeneralFamily Medicine02/17/23Team MemberRelationshipSpecialtyStart DateEnd Date Parth Hdz MD [address] [place] [address] PCP - GeneralFamily Medicine02/17/23Team MemberRelationshipSpecialtyStart DateEnd Date Parth Hdz MD [address] [place] [address] PCP - GeneralFamily Medicine02/17/23Team MemberRelationshipSpecialtyStart DateEnd Date Parth Hdz MD [address] [place] [address] PCP - GeneralFamily Medicine02/17/23Team MemberRelationshipSpecialtyStart DateEnd Date Parth Hdz MD [address] [place] [address] PCP - GeneralFamily Medicine02/17/23Team MemberRelationshipSpecialtyStart DateEnd Date Parth Hdz MD [address] [place] [address] PCP - GeneralFamily Medicine02/17/23 Shavonne Chowdary NP [address] [place] [address] PCP - [employer]08/22/24Team MemberRelationshipSpecialtyStart DateEnd Date Parth Hdz MD [address] [place] [address] PCP - GeneralFamily Medicine02/17/23 Shavonne Chowdary NP [address] [place] [address] PCP - [employer]08/22/24Team MemberRelationshipSpecialtyStart DateEnd Date Parth Hdz MD [address] [place] [address] PCP - GeneralFamily Medicine02/17/23 Shavonne Chowdary NP [address] [place] [address] PCP - [employer]08/22/24Team MemberRelationshipSpecialtyStart DateEnd Date Parth Hdz MD [address] [place] [address] [facility] - [facility] Centerly [facility]02/17/23 Shavonne Chowdary NP [address] [place] [address] PCP - [employer]08/22/24Team MemberRelationshipSpecialtyStart DateEnd Date Shavonne Chowdary, [employer] [address] [place] [address] [facility] - [facility] [place] Pract[facility]10/02/24Team MemberRelationshipSpecialtyStart Date End Date Parth Hdz MD [address] [place] [address] PCP - Generalmily Medicine02/17/23 Shavonne Chowdary NP [address] [place] [address] PCP - [employer]1/1/25Team MemberRelationshipSpecialtyStart DateEnd Parth Hdz MD [address] [place] [address] PCP - GeneralFamily Medicine02/17/23 Shavonne Chowdary NP [address] [place] [address] PCP - [employer]08/22/24Team MemberRelationshipSpecialtyStart DateEnd Date Parth Hdz MD [address] [place] [address] PCP - Generalmily Medicine02/17/23 Shavonne Chowdary NP [address] [place] [address] PCP - [employer]08/22/24Team MemberRelationshipSpecialtyStart DateEnd Date Parth Hdz MD [address] [place] [address] PCP - Generalmily Medicine02/17/23 Shavonne Chowdary NP [address] [place] [address] PCP - [employer]08/22/24Team MemberRelationshipSpecialtyStart DateEnd Date Parth Hdz MD [address] [place] [address] PCP - GeneralFamily Medicine02/17/23 Shavonne Chowdary NP [address] [place] [address] PCP - [employer]08/22/24Team MemberRelationshipSpecialtyStart DateEnd Date Parth Hdz MD [address] [place] [address] [facility]/17/23 Shavonne Chowdary NP [address] [place] [address] PCP - [employer]08/22/24Team MemberRelationshipSpecialtyStart DateEnd Date Parth Hdz MD [address] [place] [address] PCP - [facility] Medicine02/17/23 Shavonne Chowdary NP [address] [place] [address] PCP - [employer]08/22/24Team MemberRelationshipSpecialtyStart DateEnd Date Parth Hdz MD [address] [place] [address] [facility]02/17/23 Shavonne Chowdary NP [address] [place] [address] PCP - [employer]08/22/24 Team Status: Active Member Role Status Dates DUSTY Quiros Primary Care Provider Active Team Status: Inactive Member Role Status Dates DUSTY Quiros Primary Care Provider Active Start: June 06, 2025 End: June 06, 2025Shavonne Chowdary NP-CAttending ProviderActiveStart: June 06, 2025 End: June 06, 2025Team MemberRelationshipSpecialtyStart DateEnd Date Parth Hdz MD PCP - [facility]02/17/23 Shavonne Chowdary NP [address] [place] [address] PCP - [employer]08/22/24Team MemberRelationshipSpecialtyStart DateEnd Date Parth Hdz MD PCP - [facility]02/17/23 Shavonne Chowdary NP [address] [place] [address] PCP - [employer]08/22/24 Goals (unrecognized section and content) Goals may be documented in a n alternate section FOR RECORDS PERTAINING TO PATIENTS WHO ARE [...] BE BASED ON THE PRIMARY CLINICAL RECORDS. [facility] [employer] [facility]. provides no warranty or guarantee of the accuracy or completeness of information in this document.
[2025-07-15 16:09] LABS: Hematocrit 42.1 % (42.0-54.0)
[2025-07-15 17:13] LABS: Prostate Specific Antigen Dx 1.02 ng/mL (<=4.00)
== END 2025-07-15 15:41 | disposition home or self-care (01) ==
LOC: LAB 15:41
PROVIDERS: PCP Nurse Practitioner; Visit Provider Nurse Practitioner Family
DX: E29.1 Testicular hypofunction (principal)
CPT/HCPCS: 36415; 84153; 84403; 85014